=== PATIENT | male | born 1940 | race Caucasian/White ===

== ENCOUNTER 2023-04-05 19:36 | Inpatient (IN) ==
[2023-04-05] MEDS ORDERED: SODIUM CHLORIDE 0.9% 500 ML IV ONE (20:00)
--- NOTE | 2023-04-05 20:06 | Emergency Department Note ---
ED Visit Note The patient went to the OR for a GI procedure. He had presented with an esophageal food bolus. Before the endoscopy was actually initiated, the patient was feeling improved and was found to be able to tolerate oral secretions and drink water. The bolus had passed. The patient was having persistent difficulty with his breathing. I was called by anesthesia. The patient was brought back to the ER as they did not feel comfortable with discharge given his work of breathing. The patient was placed on BiPAP when he arrived back in the ED, he was given IV Solu-Medrol, 60 mg, he was given a 500 cc saline bolus, he received a DuoNeb while he was on the BiPAP. He was given IV cefepime as empiric antibiotic coverage. Patient will require a hospital stay. He very well may have aspirated during the time he was suffering from the food bolus, he appears to be suffering from a COPD exacerbation presently. I spoke with case management, I spoke with the patient, the on-call hospitalist consult. Please see my initial note which will serve as the primary ED note for this visit. .
[2023-04-05] MEDS ORDERED: ALBUT/IPRATROP 3MG/0.5MG NEB 3 ML VIAL NEB STA (20:28)
--- NOTE | 2023-04-05 21:24 | History & Physical Report ---
Date of Service April 05, 2023 Assessment & Plan (1) Food impaction of esophagus: (2) HTN (hypertension): (3) Dyslipidemia: (4) CAD (coronary artery disease): (5) Aspiration pneumonia: (6) Acute respiratory failure with hypoxia: (7) COPD (chronic obstructive pulmonary disease): (8) Lower extremity edema: Plan Food impaction of esophagus- Patient presented to the emergency department 4 and half hours after getting his food stuck in his esophagus, after having eaten eggs and toast. He had been taken to the OR for possible removal, however, while in the OR he developed acute shortness of breath, but did find it possible to swallow without regurgitation. He has been presumed by GI that the bolus has passed. N.p.o. overnight Pantoprazole 40 mg IV daily Acute respiratory failure with hypoxia/aspiration pneumonia- Received a DuoNeb, Solu-Medrol 60 mg IV and cefepime 2 g IV from the ED Solu-Medrol 40 mg IV every 8 hours Cefepime 2 g IV every 12 hours Duonebs every 4 hours while awake and every 2 hours when necessary. Continue BiPAP for now, titrate downward to nasal cannula/mask when possible for target pulse ox of 94% CAD/hypertension/lower extremity edema- Hold amlodipine, furosemide, metoprolol succinate and spironolactone Of note, there was a problem with the patient's chart when he went from the ED to the OR and then back again, with the first chart being temporarily unavailable. And needs to be verified with the ongoing service that both account numbers have been merged into the appropriate chart going forward History of Present Illness Chief Complaint: The patient presented to the emergency department with complaint of a feeling of food being caught in his esophagus about 4-1/2 hours prior to coming to the ED, after eating some eggs and toast. While in ED, they tried to give him some sips of water, and he spit it back up. He was taken to the OR for removal of a potential food bolus, however, while there he became more acutely short of breath, and was sent back to the emergency department for assessment. In the emergency department he was placed on BiPAP, and given Solu-Medrol 60 mg IV and cefepime 2 g IV, and then referred for evaluation for admission. Primary Care Provider: Arun Alexandre The patient is a 82-year-old male with a past medical history including COPD, hypertension, hyperlipidemia, CAD, vitamin D deficiency, GERD and lower extremity edema. He presented to the emergency department as noted above, about 4 and half hours after eating eggs and toast and getting the feeling that there was something stuck in his esophagus. At the time of my assessment, he was wearing BiPAP, and having accessory muscle movement, but was stable and able to answer questions. Allergies Allergy/AdvReac Type Severity Reaction Status Date / Time pollen extracts Allergy Mild Sneezing Verified 04/05/23 19:59 Home Medications Medication Instructions Recorded Confirmed Type atorvastatin 10 mg tablet 10 mg PO QAM 04/07/19 04/05/23 History fluticasone 250 mcg-salmeterol 50 1 inh inhalation BID 04/07/19 04/05/23 History mcg/dose blistr powdr for inhalation (Advair Diskus) furosemide 20 mg tablet 20 mg PO [id number] 04/07/19 04/05/23 History tiotropium bromide 2.5 1 puff inhalation BID 04/07/19 04/05/23 History mcg/actuation mist for inhalation (Spiriva Respimat) montelukast 10 mg tablet 10 mg PO QAM 05/10/20 04/05/23 History spironolactone 25 mg tablet 12.5 mg PO DAILY 05/10/20 04/05/23 History (Aldactone) amlodipine 2.5 mg tablet 2.5 mg PO HS 04/05/23 04/05/23 History cholecalciferol (vitamin D3) 25 25 mcg PO DAILY 04/05/23 04/05/23 History mcg (1,000 unit) capsule (Vitamin D3) metoprolol succinate 50 mg 75 mg PO QAM 04/05/23 04/05/23 History tablet,extended release 24 hr [id number]-[id number] tablet 1 tab PO DAILY 04/05/23 04/05/23 History omeprazole 20 mg capsule,delayed 20 mg PO DAILY PRN 04/05/23 04/05/23 History release HEARTBURN/INDIGESTION vit C 250 mg-vit E 90 mg-zinc 40 2 tab PO QAM 04/05/23 04/05/23 History mg-copper 1 [id number] capsule (PreserVision AREDS-2) Past Med/Surg History Medical History (Updated 04/05/23 @ 22:03 by Marvin Martinez MD) CAD (coronary artery disease) COPD (chronic obstructive pulmonary disease) Dyslipidemia Emphysema of lung Food impaction of esophagus HTN (hypertension) Lower extremity edema Family History Other Family history non-contributory Social History Smoking Status: Former smoker Hx Alcohol Use: No Hx Substance Use: No Preferred Language: [place] Suction Operator Required: No Beliefs That Will Affect Care: None marital status: Current Living Situation: Alone current occupational status: retired Feels Safe at Home: Yes Assistive Devices: Oxygen - Continuous Review of Systems Review of Systems: The patient denies palpitations, lower extremity swelling, fevers, chills, sweats, diarrhea , constipation, abdominal pain, pelvic pain, blood in urine or stool, dysuria, urinary frequency or urgency, lightheadedness, dizziness, headache, memory loss, loss of consciousness, rash, abnormal bruising or bleeding, imbalance, focal or generalized weakness, numbness or tingling in arms or legs, generalized arthralgias or myalgias, back or neck pain, or night sweats. The review of systems is otherwise negative other than for that already noted above, and at least 10 systems have been reviewed. Physical Exam Physical Exam: The patient is awake, alert and oriented 3, well developed and well nourished, wearing BiPAP, sitting upright in bed and in mild distress. HEENT--PERRL, EOMI, mucous membranes and oropharynx dry. Neck--supple. No JVD. No bruits. Thyroid normal, trachea midline, no adenopathy. Heart--normal S1 and S2. No murmurs, rubs or gallops. Lungs--coarse breath sounds bilaterally, wheezing right greater than left. Mild respiratory distress, with accessory muscle use. Abdomen--normal bowel sounds and soft. Nontender. Nondistended, no hernias or masses, no organomegaly. Extremities--no cyanosis or clubbing. No edema. Dermatologic--normal skin turgor, normal color, no abnormal lymph nodes, no rash. Neurologic--cranial nerves II through XII grossly intact. Rheumatologic--normal range of motion. Psychiatric--normal affect. Results & Data Results & Data Vital Signs (Past 12 Hours) Vital Signs Pulse Pulse Resp BP Pulse Ox O2 Del Method FiO2 04/05/23 19:36 105 H 30 H 95 40 04/05/23 19:54 BiPAP 04/05/23 19:51 106 H 34 H 136/104 H 97 BiPAP Laboratory Results Laboratory Results Total Bilirubin 0.6 mg/dl (0.2-1.0) 04/05/23 18:14 Direct Bilirubin TNP 04/05/23 18:14 AST TNP 04/05/23 18:14 ALT 33 U/L (7-52) 04/05/23 18:14 Alkaline Phosphatase 87 U/L (34-104) 04/05/23 18:14 Total Protein 8.3 gm/dl (6.0-8.3) 04/05/23 18:14 Albumin 4.6 gm/dl (3.4-5.0) 04/05/23 18:14 Code Status & VTE Plan Code Status Full code VTE Prophylaxis Plan VTE Prophylaxis will be ordered: Yes PG Care Time/CCT Total # of Minutes Spent Total Time Spent with Patient: Total time spent is greater than 50% in coordination of care (as documented) at patient's floor/unit and/or counseling patient: Coding Level of Care Code 92875 INT INP/OBS CARE 3/75MIN Diagnoses Food impaction of esophagus T18.128A HTN (hypertension) I10 Dyslipidemia E78.5 CAD (coronary artery disease) I25.10 Aspiration pneumonia J69.0 Acute respiratory failure with hypoxia J96.01 COPD (chronic obstructive pulmonary disease) J44.9 Lower extremity edema R60.0
[2023-04-05 21:34] LABS: Alanine Aminotransferase 33 U/L (7-52); Albumin Level 4.6 gm/dl (3.4-5.0); Alkaline Phosphatase 87 U/L (34-104); Bilirubin,Total 0.6 mg/dl (0.2-1.0); Total Protein 8.3 gm/dl (6.0-8.3)
[2023-04-05 22:29] LABS: Adenovirus PCR Not Detected (NotDetected); Bordetella parapertussis PCR Not Detected (NotDetected); Bordetella pertussis PCR Not Detected (NotDetected); Chlamydia pneumoniae PCR Not Detected (NotDetected); Coronavirus 229E PCR Not Detected (NotDetected); Coronavirus CoV-2 (COVID19)PCR Not Detected (NotDetected); Coronavirus HKU1 PCR Not Detected (NotDetected); Coronavirus NL63 PCR Not Detected (NotDetected); Coronavirus OC43PCR Not Detected (NotDetected); Human Metapneumovirus PCR Not Detected (NotDetected); Influenza A PCR Not Detected (NotDetected); Influenza B PCR Not Detected (NotDetected); Mycoplasma pneumoniae PCR Not Detected (NotDetected); Parainfluenza Virus 1 PCR Not Detected (NotDetected); Parainfluenza Virus 2 PCR Not Detected (NotDetected); Parainfluenza Virus 3 PCR Not Detected (NotDetected); Parainfluenza Virus 4 PCR Not Detected (NotDetected); Respiratory Syncytial VirusPCR Not Detected (NotDetected); Rhinovirus/Enterovirus PCR Not Detected (NotDetected)
[2023-04-05 23:26] LABS: Bilirubin Direct 0.1 mg/dl (0-0.2)
[2023-04-05] MEDS ORDERED: ONDANSETRON INJ 2 MG/ML 2 ML VIAL IV PRN (23:34)
[2023-04-05] MEDS ORDERED: ACETAMINOPHEN 1000 MG/100 ML IV IV PRN (23:34)
[2023-04-05] MEDS ORDERED: SODIUM CHLORIDE 0.9% 1,000 ML IV SCH (23:34)
[2023-04-05] MEDS ORDERED: ALBUT/IPRATROP 3MG/0.5MG NEB 3 ML VIAL NEB PRN (23:43)
[2023-04-05] MEDS ORDERED: ACETAMINOPHEN 1,000 MG/100 ML VIAL IV PRN (23:48)
[2023-04-06] MEDS: methylPREDNISolone 40 MG in SYRINGE 0 ML IV SCH ×3 (03:25→20:33)
[2023-04-06 05:01] LABS: Basophils # (auto) 0.02 K/uL (0-0.2); Basophils % (auto) 0.2 %; Eosinophils # (auto) 0.01 K/uL (0-0.50); Eosinophils % (auto) 0.1 %; Hematocrit (blood only) 44.7 % (42.0-52.0); Hemoglobin 14.8 g/dl (14.0-18.0); Immature Granulocytes # (auto) 0.06 K/uL (0.01-0.20); Immature Granulocytes % (auto) 0.5 %; Lymphocytes # (auto) 1.58 K/uL (1.2-3.4); Lymphocytes % (auto) 12.7 %; Mean Corpuscular Hemoglobin 31.8 pg (25.0-34.0); Mean Corpuscular Hgb Conc 33.1 g/dL (32.0-36.0); Mean Corpuscular Volume 95.9 fL (80.0-100.0); Mean Platelet Volume 12.5 fL (9.4-12.4); Monocytes # (auto) 0.44 K/uL (0.11-0.59); Monocytes % (auto) 3.5 %; Neutrophils # (auto) 10.38 K/uL (1.40-6.50); Platelet Count 132 K/uL (130-400); RDW Coefficient of Variation 14.4 % (11.5-14.5); RDW Standard Deviation 50.6 fL (36.4-46.3); Red Blood Count 4.66 M/uL (4.70-6.10); White Blood Count 12.49 K/ul (4.8-10.8)
[2023-04-06 05:20] LABS: Albumin Globulin Ratio 1.3 (0.9-2); Albumin Level 3.7 gm/dl (3.4-5.0); BUN Creatinine Ratio 21.2 (10-20); Bilirubin,Total 0.5 mg/dl (0.2-1.0); Calcium 8.7 mg/dl (8.6-10.3); Creatinine Clr Calc Pharmacy 50.7 ml/min; Est GFR (African American) 66.7 ml/min; Est GFR (Non-African American) 57.5 ml/min; Globulin 2.9 gm/dl (2.5-4.0); Magnesium 2.3 mg/dl (1.7-2.4); Potassium 5.1 mmol/L (3.5-5.1); Total Protein 6.6 gm/dl (6.0-8.3)
--- NOTE | 2023-04-06 07:06 | XRay Report ---
XR chest 1V portable HISTORY: 82 years-old Male hypoxia post procedure acute hypoxia COMPARISON: Chest radiograph of same day at 6:15 PM, CT chest 04/07/2019. TECHNIQUE: AP view of the chest FINDINGS: Cardiomediastinal and hilar silhouettes are unchanged. Probable pulmonary vascular congestion. Emphys cami with chronic fibrotic changes are again noted. No pneumothorax, pleural effusion or overt pulmona ry edema. Indeterminate 3 cm nodular density left midlung. Bones appear grossly intact. IMPRESSION: 1. Suggestion of pulmonary vascular congestion. 2. Emphysema with chronic fibrotic changes. 3. 3 cm nodular density of the left midlung. Attention on follow-up recommended in order to exclude a pulmonary nodule. ACT 112: Negative or not required by law. The above report was generated using voice recognition software. It may contain grammatical, syntax o r spelling errors. Electronically signed by: Mukesh Mas M.D. 04/06/2023 7:05 AM
[2023-04-06] MEDS: ALBUT/IPRATROP 3MG/0.5MG NEB 3 ML VIAL NEB SCH ×4 (07:14→19:17)
[2023-04-06] MEDS: CEFEPIME 2,000 MG in SYRINGE 0 ML IV SCH ×2 (08:25→20:33)
[2023-04-06] MEDS: PANTOprazole 40 MG in SYRINGE 0 ML IV SCH (12:27)
--- NOTE | 2023-04-06 12:46 | XRay Report ---
SINGLE VIEW CHEST CLINICAL HISTORY: Respiratory failure. FINDINGS: 2 AP, portable, upright chest radiographs are compared to study dated 04/05/2023 and correla marlen with chest CT dated 04/07/2019. The heart is enlarged noting atherosclerotic calcification of the thoracic aorta. The pulmonary vasculature is noncongested. Emphysema and chronic interstitial thicken ing is similar to previous. Apical scarring is observed. Extensive parenchymal scarring is seen throu ghout both lungs. This is greatest at the lung bases. No airspace consolidation typical for pneumonia or large pleural effusion is identified. No pneumothorax is seen. The skeletal structures are osteop enic. There are chronic/healed right-sided rib fractures. IMPRESSION: Cardiomegaly and emphysema with no acute cardiopulmonary abnormality identified. ACT 112: Negative or not required by law. Electronically signed by: Kennedy Pulido M.D. 04/06/2023 12:44 PM
--- NOTE | 2023-04-06 12:51 | Hospitalist Progress Note ---
Date of Service April 06, 2023 Assessment & Plan (1) Food impaction of esophagus: Plan: eggs/toast leading to his event. presented to ER. urgent EGD was planned, and just prior to the procedure it appeared the impaction had resolved. by report was able to take sips of liquids and had no dysphagia/odynophagia. around the same time, however, he has worsening respiratory distress - see below. I consulted speech therapy to ensure swallow function is normal and that he is safe for diet. Cont IV PPI. (2) COPD (chronic obstructive pulmonary disease): Plan: per the ER attending and the admitting MD he was wheezy and having distress in the ER. placed on IV steroids and IV abx along with nebs for COPD exacerbation. he required CPAP overnight. his symptoms/signs are improved today. in fact he was clear on exam this am. CPAP weaned to NC O2 - titrate to keep sats 90-92%. Cont IV steroids but decrease TID to BID dosing. Repeat cxr - r/o developing aspiration pneumonia. Resume his usual chronic daily inhalers. (3) Acute and chronic respiratory failure with hypoxia: Plan: chronic resp failure 2nd to COPD acute resp failure - COPD flare vs aspiration event vs developing aspiration pneumonia cxr today cont steroids but wean cont abx for now cont bronchodilators (4) Aspiration into airway: Plan: due to his food impaction there was concern last night that perhaps he aspirated secretions repeat cxr today to r/o developing aspiration pneumonia speech eval requested (5) HTN (hypertension): Plan: holding BP meds for now BPs acceptable (6) Dyslipidemia: Plan: holding statin for now (7) CAD (coronary artery disease): Plan: no ischemic symptoms or signs of ACS ultimately resume metoprolol, aldactone, etc uncertain why he is not on aspirin daily (8) DVT prophylaxis: Plan: add SC heparin or lovenox tomorrow Plan care d/w speech therapy left message for pt's on her voicemail this evening Admission and Anticipated Discharge Date Admission Date: April 05, 2023 Subjective patient was on BIPAP/CPAP all night this am during rounds he states he feels ok denies feeling dyspneic denies cough states he is typically on 2 L NC O2 chronically at home, sometimes he will bump it to 3 prior to the esophageal impaction yesterday he denies any other episodes of dysphagia or choking states that when the impaction happened yesterday he had chest discomfort with it that sensation in the chest is resolved tele overnight wnl Review of Systems Review of Systems: gen - no fevers cv - no chest pain, no PND pulm - no cough GI - no abd pain; no nausea/emesis Physical Exam Physical Exam: gen - pleasant, NAD, CPAP mask in place neck - no JVD mouth - MMM heart - RRR, s1 s2 lungs - CTA b/l; no wheezes; no rhonchi; no rales; mild tachypnea abd - soft NT ND BS+ ext - no edema, pulses 2+ b/l psych - a/o x 3 Results & Data Results & Data Vital Signs (Past 12 Hours) Vital Signs Temp Pulse Pulse Pulse Resp BP BP 04/06/23 09:59 90 16 04/06/23 09:48 93 H 28 H 04/06/23 08:00 04/06/23 08:04 36.3 C L 88 18 108/62 04/06/23 07:14 98 H 19 04/06/23 07:14 98 H 19 04/06/23 03:27 36.5 C 86 17 145/77 H 04/06/23 02:36 80 18 Pulse Ox O2 Del Method O2 Flow Rate FiO2 04/06/23 09:59 94 CPAP 35 04/06/23 09:48 93 35 04/06/23 08:00 BiPAP 40 04/06/23 08:04 91 Nasal Cannula 3 04/06/23 07:14 94 40 04/06/23 07:14 94 BiPAP 40 04/06/23 03:27 95 BiPAP 04/06/23 02:36 96 40 Laboratory Results Laboratory Results - last 24 hr 04/05/23 04/05/23 04/05/23 18:14 21:16 21:39 WBC RBC Hgb Hct MCV MCH MCHC RDW Std Deviation RDW Coeff of Whitney Plt Count MPV Immature Gran % (Auto) Neut % (Auto) Lymph % (Auto) [place] % (Auto) Eos % (Auto) Baso % (Auto) Neut # (Auto) Lymph # (Auto) [place] # (Auto) Eos # (Auto) Baso # (Auto) Immature Gran # (Auto) Sodium Potassium Chloride Carbon Dioxide Anion Gap BUN Creatinine Est Cr Clr Drug Dosing Est GFR ( Amer) Est GFR (Non-Af Amer) BUN/Creatinine Ratio Glucose Calcium Magnesium Total Bilirubin 0.6 Direct Bilirubin TNP TNP AST TNP TNP ALT 33 Alkaline Phosphatase 87 Total Protein 8.3 Albumin 4.6 Globulin Albumin/Globulin Ratio Adenovirus (PCR) Not Detected B. pertussis DNA (PCR) Not Detected B.parapertussis DNA PCR Not Detected C. pneumoniae DNA (PCR) Not Detected Coronavirus OC43 (PCR) Not Detected Coronavirus HKU1 (PCR) Not Detected Coronavirus 229E (PCR) Not Detected SARS-CoV-2 (PCR) Not Detected Coronavirus NL63 (PCR) Not Detected Human Metapneumovir PCR Not Detected Influenza Type A (PCR) Not Detected Influenza Type B (PCR) Not Detected M. pneumoniae (PCR) Not Detected Parainfluenza 1 (PCR) Not Detected Parainfluenza 2 (PCR) Not Detected Parainfluenza 3 (PCR) Not Detected Parainfluenza 4 (PCR) Not Detected RSV (PCR) Not Detected Entero/Rhino (PCR) Not Detected 04/05/23 04/06/23 04/06/23 22:55 04:30 04:30 WBC 12.49 H RBC 4.66 L Hgb 14.8 Hct 44.7 MCV 95.9 MCH 31.8 MCHC 33.1 RDW Std Deviation 50.6 H RDW Coeff of Whitney 14.4 Plt Count 132 MPV 12.5 H Immature Gran % (Auto) 0.5 Neut % (Auto) 83.0 Lymph % (Auto) 12.7 [place] % (Auto) 3.5 Eos % (Auto) 0.1 Baso % (Auto) 0.2 Neut # (Auto) 10.38 H Lymph # (Auto) 1.58 [place] # (Auto) 0.44 Eos # (Auto) 0.01 Baso # (Auto) 0.02 Immature Gran # (Auto) 0.06 Sodium 138 Potassium 5.1 Chloride 109 H Carbon Dioxide 23 Anion Gap 6 BUN 25 H Creatinine 1.18 Est Cr Clr Drug Dosing 50.7 Est GFR ( Amer) 66.7 Est GFR (Non-Af Amer) 57.5 BUN/Creatinine Ratio 21.2 H Glucose 173 H Calcium 8.7 Magnesium 2.3 Total Bilirubin 0.5 Direct Bilirubin 0.1 AST 19 18 ALT 21 Alkaline Phosphatase 64 Total Protein 6.6 D Albumin 3.7 Globulin 2.9 Albumin/Globulin Ratio 1.3 Adenovirus (PCR) B. pertussis DNA (PCR) B.parapertussis DNA PCR C. pneumoniae DNA (PCR) Coronavirus OC43 (PCR) Coronavirus HKU1 (PCR) Coronavirus 229E (PCR) SARS-CoV-2 (PCR) Coronavirus NL63 (PCR) Human Metapneumovir PCR Influenza Type A (PCR) Influenza Type B (PCR) M. pneumoniae (PCR) Parainfluenza 1 (PCR) Parainfluenza 2 (PCR) Parainfluenza 3 (PCR) Parainfluenza 4 (PCR) RSV (PCR) Entero/Rhino (PCR) PG Care Time/CCT Total # of Minutes Spent Total Time Spent with Patient: Total time spent is greater than 50% in coordination of care (as documented) at patient's floor/unit and/or counseling patient: Coding Level of Care Code 91609 SUB INP/OBS CARE 2/35MIN Diagnoses Food impaction of esophagus T18.128A COPD (chronic obstructive pulmonary disease) J44.9 Acute and chronic respiratory failure with hypoxia J96.21 Aspiration into airway T17.908A HTN (hypertension) I10 Dyslipidemia E78.5 CAD (coronary artery disease) I25.10 DVT prophylaxis Z29.9
[2023-04-06] MEDS ORDERED: methylPREDNISolone 20 MG in SYRINGE 0 ML IV SCH (20:00)
--- NOTE | 2023-04-07 05:38 | Electrocardiogram Report ---
Test Reason : Blood Pressure : / mmHG Vent. Rate : 090 BPM Atrial Rate : 090 BPM P-R Int : 180 ms QRS Dur : 088 ms QT Int : 368 ms P-R-T Axes : 068 055 044 degrees QTc Int : 450 ms Normal sinus rhythm Normal ECG When compared with ECG of 05-APR-2023 18:23, (unconfirmed) Criteria for Inferior infarct are no longer Present Confirmed by Tyler Haro ([id number]) on 04/07/2023 5:38:30 AM Referred By: REFERRED SELF Confirmed By:Tyler Haro
[2023-04-07 06:43] LABS: Basophils # (auto) 0.01 K/uL (0-0.2); Basophils % (auto) 0.1 %; Hematocrit (blood only) 40.2 % (42.0-52.0); Hemoglobin 13.2 g/dl (14.0-18.0); Immature Granulocytes # (auto) 0.07 K/uL (0.01-0.20); Immature Granulocytes % (auto) 0.5 %; Lymphocytes # (auto) 1.42 K/uL (1.2-3.4); Mean Corpuscular Hemoglobin 31.4 pg (25.0-34.0); Mean Corpuscular Hgb Conc 32.8 g/dL (32.0-36.0); Mean Corpuscular Volume 95.7 fL (80.0-100.0); Mean Platelet Volume 12.3 fL (9.4-12.4); Monocytes # (auto) 0.86 K/uL (0.11-0.59); Monocytes % (auto) 6.7 %; Neutrophils # (auto) 10.54 K/uL (1.40-6.50); Neutrophils % (auto) 81.7 %; Platelet Count 137 K/uL (130-400); RDW Coefficient of Variation 14.4 % (11.5-14.5); RDW Standard Deviation 50.3 fL (36.4-46.3)
[2023-04-07] MEDS: ALBUT/IPRATROP 3MG/0.5MG NEB 3 ML VIAL NEB SCH ×4 (06:58→19:13)
[2023-04-07 07:03] LABS: BUN Creatinine Ratio 25.3 (10-20); Calcium 8.7 mg/dl (8.6-10.3); Creatinine Clr Calc Pharmacy 60.4 ml/min; Est GFR (African American) 82.4 ml/min; Est GFR (Non-African American) 71.1 ml/min; Potassium 4.8 mmol/L (3.5-5.1)
[2023-04-07] MEDS: CEFEPIME 2,000 MG in SYRINGE 0 ML IV SCH (09:10)
[2023-04-07] MEDS: methylPREDNISolone 40 MG in SYRINGE 0 ML IV SCH ×2 (09:10→19:32)
[2023-04-07] MEDS: FLUTICASONE/VILANTEROL 200/25MCG 14 PUFFS/INHALER INH SCH (09:45)
[2023-04-07] MEDS: UMECLIDINIUM BROMIDE 62.5MCG/BLISTER 7 PUFFS/INHALER INH SCH (09:45)
--- NOTE | 2023-04-07 10:40 | Fluoroscopy Report ---
SINGLE CONTRAST BARIUM ESOPHAGRAM CLINICAL HISTORY: Esophageal dysfunction. Dyspnea. COMPARISON STUDY: No priors.. TECHNIQUE: A single contrast barium esophagram is performed. Multiple spot images of the esophagus ar e acquired in the upright position. The patient had difficulty with the examination due to significan t dyspnea. FINDINGS: The patient swallowed barium without difficulty. There is moderate to severe esophageal dys motility. The barium pill was not attempted. There is no evidence of intrinsic or extrinsic mass les ion. No aspiration was seen. The gastroesophageal junction distended normally. No gastroesophageal r eflux could be elicited by having the patient perform the Valsalva maneuver. Fluoroscopy time: 23 seconds. Ka,r: 12.8 mGy Fluoroscopic images: 8 spot images and 2 cine loops IMPRESSION: Moderate to severe esophageal dysmotility. ACT 112: Negative or not required by law. Electronically signed by: Kennedy Pulido M.D. 04/07/2023 10:38 AM
--- NOTE | 2023-04-07 11:20 | Fluoroscopy Report ---
VIDEO SWALLOW STUDY CLINICAL HISTORY: Aspiration. COMPARISON STUDY: Barium esophagram performed on the same day, 04/07/2023. FLUOROSCOPY TIME: 1.25 minutes. Ka,r: 15.7 mGy FINDINGS: Fluoroscopic guidance is provided to the Department of Speech Pathology in performing a vid eo swallow study. The patient consumed barium-impregnated pudding, cracker with paste, and thin bariu m while the swallowing mechanism was observed in real-time. No penetration or aspiration was seen wit h any of the sample textures. Esophageal dysmotility is observed. IMPRESSION: 1. No penetration or aspiration was seen with any of the sample textures. 2. Esophageal dysmotility. 3. See dedicated speech pathology report for detailed findings and recommendations. Dictated: 04/07/2023 10:27 AM Transcribed: 04/07/2023 11:14 AM Avi [id number] [email or web address] Electronically signed by: Kennedy Pulido M.D. 04/07/2023 11:19 AM
[2023-04-07] MEDS: PANTOprazole 40 MG in SYRINGE 0 ML IV SCH (12:04)
[2023-04-07] MEDS ORDERED: PIPERACILLIN/TAZOBACTAM 4.5 GM in DEXTROSE 5% 100 ML IV ONE (17:30)
--- NOTE | 2023-04-07 17:36 | Electrocardiogram Report ---
Test Reason : Blood Pressure : / mmHG Vent. Rate : 090 BPM Atrial Rate : 090 BPM P-R Int : 188 ms QRS Dur : 088 ms QT Int : 360 ms P-R-T Axes : 065 046 043 degrees QTc Int : 440 ms Normal sinus rhythm Normal ECG When compared with ECG of 06-APR-2023 05:43, No significant change was found Confirmed by Tyler Haro ([id number]) on 04/07/2023 5:36:31 PM Referred By: REFERRED SELF Confirmed By:Tyler Haro
--- NOTE | 2023-04-07 19:11 | Hospitalist Progress Note ---
Date of Service April 07, 2023 Assessment & Plan (1) Food impaction of esophagus: Plan: eggs/toast leading to his event. presented to ER. urgent EGD was planned, and just prior to the procedure it appeared the impaction had resolved. by report was able to take sips of liquids and had no dysphagia/odynophagia. around the same time, however, he has worsening respiratory distress - see below. Patient had a barium swallow done that proved that he has esophageal dysmotility Cont IV PPI. (2) COPD (chronic obstructive pulmonary disease): Plan: per the ER attending and the admitting MD he was wheezy and having distress in the ER. placed on IV steroids and IV abx along with nebs for COPD exacerbation. he required CPAP overnight. his symptoms/signs are improved today. in fact he was clear on exam this am. CPAP weaned to NC O2 - titrate to keep sats 90-92%. Cont IV steroids but decrease TID to BID dosing. Repeat cxr - r/o developing aspiration pneumonia. Resume his usual chronic daily inhalers. (3) Acute and chronic respiratory failure with hypoxia: Plan: chronic resp failure 2nd to COPD acute resp failure - COPD flare vs aspiration event vs developing aspiration pneumonia cxr today cont steroids but wean Switch from IV cefepime to IV Zosyn cont bronchodilators (4) Aspiration into airway: Plan: due to his food impaction there was concern last night that perhaps he aspirated secretions X-rays negative for pneumonia However since the patient is requiring high oxygen, will start Zosyn and discontinue cefepime. speech eval requested (5) HTN (hypertension): Plan: holding BP meds for now BPs acceptable (6) Dyslipidemia: Plan: holding statin for now (7) CAD (coronary artery disease): Plan: no ischemic symptoms or signs of ACS ultimately resume metoprolol, aldactone, etc uncertain why he is not on aspirin daily (8) DVT prophylaxis: Plan: On subcu Lovenox Plan care d/w speech therapy Admission and Anticipated Discharge Date Admission Date: April 05, 2023 Subjective Patient asking about when he can go home. However he is now on 5 L of oxygen but quickly desats requiring 10 L of oxygen with minimal exertion like standing. Review of Systems Review of Systems: All systems reviewed & are unremarkable except as noted in Subjective Physical Exam Physical Exam: General: Awake, conversant Heart: S1, S2/regular rate and rhythm, no murmur rubs or gallops Lungs: Diminished breath sounds bilaterally. Normal effort Abdomen: Soft/nontender/nondistended. No hepatosplenomegaly Extremities: No clubbing/cyanosis. No edema Behavior: Appropriate, cooperative Results & Data Results & Data Vital Signs (Past 12 Hours) Vital Signs Temp Pulse Resp BP Pulse Ox O2 Del Method O2 Flow Rate 04/07/23 16:06 36.5 C 102 H 19 113/60 91 Nasal Cannula 6 04/07/23 14:14 87 18 93 Nasal Cannula 5 04/07/23 10:58 36.4 C L 96 H 19 113/69 98 Nasal Cannula 6 04/07/23 11:00 86 17 94 Nasal Cannula 4 04/07/23 08:00 High Flow Nasal Cannula 6 04/07/23 07:43 36.4 C L 84 18 105/61 98 Nasal Cannula 4 Laboratory Results Abnormal lab results 04/07/23 04/07/23 Range/Units 05:54 05:54 WBC 12.90 H (4.8-10.8) K/ul RBC 4.20 L (4.70-6.10) M/uL Hgb 13.2 L (14.0-18.0) g/dl Hct 40.2 L (42.0-52.0) % RDW Std Deviation 50.3 H (36.4-46.3) fL Neut # (Auto) 10.54 H (1.40-6.50) K/uL [place] # (Auto) 0.86 H (0.11-0.59) K/uL BUN 25 H (6-23) mg/dl BUN/Creatinine Ratio 25.3 H (10-20) Glucose 159 H (70-99(Fasting)) mg/dl PG Care Time/CCT Total # of Minutes Spent Total Time Spent with Patient: Total time spent is greater than 50% in coordination of care (as documented) at patient's floor/unit and/or counseling patient: Coding Level of Care Code 41222 SUB INP/OBS CARE 2/35MIN Diagnoses Food impaction of esophagus T18.128A COPD (chronic obstructive pulmonary disease) J44.9 Acute and chronic respiratory failure with hypoxia J96.21 Aspiration into airway T17.908A HTN (hypertension) I10 Dyslipidemia E78.5 CAD (coronary artery disease) I25.10 DVT prophylaxis Z29.9 Time Spent (min) 35
[2023-04-07] MEDS: ENOXAPARIN INJ 40 MG/0.4 ML SYR SQ SCH (20:02)
[2023-04-08] MEDS: PIPERACILLIN/TAZOBACTAM 4.5 GM in DEXTROSE 5% 100 ML IV SCH ×3 (00:18→17:22)
[2023-04-08 06:29] LABS: Basophils # (auto) 0.01 K/uL (0-0.2); Basophils % (auto) 0.1 %; Hematocrit (blood only) 41.1 % (42.0-52.0); Hemoglobin 13.6 g/dl (14.0-18.0); Immature Granulocytes # (auto) 0.07 K/uL (0.01-0.20); Immature Granulocytes % (auto) 0.7 %; Lymphocytes # (auto) 1.05 K/uL (1.2-3.4); Mean Corpuscular Hemoglobin 31.1 pg (25.0-34.0); Mean Corpuscular Hgb Conc 33.1 g/dL (32.0-36.0); Mean Corpuscular Volume 93.8 fL (80.0-100.0); Mean Platelet Volume 12.4 fL (9.4-12.4); Monocytes # (auto) 0.74 K/uL (0.11-0.59); Monocytes % (auto) 7.1 %; Neutrophils # (auto) 8.62 K/uL (1.40-6.50); Neutrophils % (auto) 82.1 %; Platelet Count 141 K/uL (130-400); RDW Coefficient of Variation 13.7 % (11.5-14.5); RDW Standard Deviation 47.7 fL (36.4-46.3); Red Blood Count 4.38 M/uL (4.70-6.10); White Blood Count 10.49 K/ul (4.8-10.8)
[2023-04-08] MEDS: ALBUT/IPRATROP 3MG/0.5MG NEB 3 ML VIAL NEB SCH ×4 (07:44→19:52)
[2023-04-08] MEDS: methylPREDNISolone 40 MG in SYRINGE 0 ML IV SCH ×2 (09:01→21:37)
[2023-04-08] MEDS: FLUTICASONE/VILANTEROL 200/25MCG 14 PUFFS/INHALER INH SCH (09:02)
[2023-04-08] MEDS: UMECLIDINIUM BROMIDE 62.5MCG/BLISTER 7 PUFFS/INHALER INH SCH (09:02)
[2023-04-08] MEDS: ENOXAPARIN INJ 40 MG/0.4 ML SYR SQ SCH (09:03)
[2023-04-08] MEDS: PANTOprazole 40 MG in SYRINGE 0 ML IV SCH (12:33)
--- NOTE | 2023-04-08 15:47 | Pulmonary Consultation ---
Date of Consultation April 08, 2023 Assessment & Plan (1) Acute and chronic respiratory failure with hypoxia: (2) COPD (chronic obstructive pulmonary disease): (3) Pulmonary hypertension: (4) Emphysema of lung: Plan PFT 05/29/2020 personally reviewed: Moderate obstructive lung dysfunction, insignificant bronchodilator response FVC 3.65 L 92%, FEV1 1.96 L 66%, FEV1/FVC 54%, RV 104%, TLC 86%, RV/TLC 116%, DLCO 42% 2D echo 05/01/2020: EF 55-60%, grade 1 diastolic dysfunction, RV normal in size and function, PASP 50 mmHg Chest x-ray 04/06/2023 personally reviewed: Portable film, hyperinflated, with flattened diaphragm, patchy opacities appreciated bilateral lower lobes -- Acute on chronic hypoxic respiratory failure On 2 L oxygen at home No wheezing appreciated on physical exam Respiratory bio fire negative for everything -- COPD with emphysema On Advair and Spiriva at home -- Pulmonary hypertension Combination of type II and type III 2D echo to be done Plan: Follow-up ABG BNP Procalcitonin CTA chest ordered Case was discussed with RN at bedside Continue with Solu-Medrol, Breo and Incruse. Continue with antibiotic for the time being Please note the above document was generated using voice recognition software. It may contain grammatical, syntax or spelling errors.Any formal questions or concerns about the content, text or information contained within the body of this dictation should be directly addressed to the provider for clarification. History of Present Illness Attending Physician: Booker Cramer MD History of Present Illness 82-year-old male was admitted to the hospital because of food impaction in the esophagus Past medical history: Hypertension, dyslipidemia, COPD Pulmonary consulted for increasing oxygen requirement At the time of examination patient was not in any respiratory distress He was saturating 98% on 5 L nasal cannula. Denies any chest pain, no headache, no nausea, no vomiting He stated that when he is sitting like this is not that short of breath but on minimal exertion he does get short of breath. Denies any chest tigh tness. Occasional cough with clear phlegm. Denies any chest congestion. No nausea or vomiting No headache, no blurry vision Social history: [id number] smoking history, quit a long time ago Denies any history of lung cancer in the family Allergies Allergy/AdvReac Type Severity Reaction Status Date / Time pollen extracts Allergy Mild Sneezing Verified 04/05/23 19:59 Home Medications Medication Instructions Recorded Confirmed Type atorvastatin 10 mg tablet 10 mg PO QAM 04/07/19 04/05/23 History fluticasone 250 mcg-salmeterol 50 1 inh inhalation BID 04/07/19 04/05/23 History mcg/dose blistr powdr for inhalation (Advair Diskus) furosemide 20 mg tablet 20 mg PO [id number] 04/07/19 04/05/23 History tiotropium bromide 2.5 1 puff inhalation BID 04/07/19 04/05/23 History mcg/actuation mist for inhalation (Spiriva Respimat) montelukast 10 mg tablet 10 mg PO QAM 05/10/20 04/05/23 History spironolactone 25 mg tablet 12.5 mg PO DAILY 05/10/20 04/05/23 History (Aldactone) amlodipine 2.5 mg tablet 2.5 mg PO HS 04/05/23 04/05/23 History cholecalciferol (vitamin D3) 25 25 mcg PO DAILY 04/05/23 04/05/23 History mcg (1,000 unit) capsule (Vitamin D3) metoprolol succinate 50 mg 75 mg PO QAM 04/05/23 04/05/23 History tablet,extended release 24 hr [id number]-[id number] tablet 1 tab PO DAILY 04/05/23 04/05/23 History omeprazole 20 mg capsule,delayed 20 mg PO DAILY PRN 04/05/23 04/05/23 History release HEARTBURN/INDIGESTION vit C 250 mg-vit E 90 mg-zinc 40 2 tab PO QAM 04/05/23 04/05/23 History mg-copper 1 [id number]-jpvltv capsule (PreserVision AREDS-2) Patient History Medical History (Updated 04/08/23 @ 16:15 by David Cagle MD, [facility]) CAD (coronary artery disease) COPD (chronic obstructive pulmonary disease) Dyslipidemia Emphysema of lung Food impaction of esophagus HTN (hypertension) Lower extremity edema Family History Other Family history non-contributory Social History Smoking Status: Never smoker Tobacco Type: Smokeless Tobacco (Dip or Chew) Second Hand Exposure: No; Do You Dip or Chew Tobacco: Yes; Hx Alcohol Use: No Hx Substance Use: No Preferred Language: Spanish Communication Ability: Impaired Contract Officer Required: No Beliefs That Will Affect Care: None marital status: Current Living Situation: Spouse Current Living Situation Comment: at home with spouse current occupational status: retired Feels Safe at Home: Yes Assistive Devices: Oxygen - Continuous Review of Systems Review of Systems: All systems reviewed & are unremarkable except as noted in HPI & below Physical Exam Physical Exam: Constitutional: No acute distress HEENT: EOMI, PERRLA Respiratory system: Decreased air entry bilaterally, no wheeze, no rhonchi, no crackles CVS: S1-S2 positive, no murmurs or gallops, distant heart sounds Abdomen: Soft, nontender, nondistended, positive bowel sounds x4 Extremities: +2 pulses bilaterally radialis/ dorsalis pedis, no cyanosis, no edema, no clubbing Neuro: Awake alert oriented x3 Psych: Normal mood and affect G/U: No Luke Skin: no rashes, warm and dry Lymphatic: no cervical or axillary lymphadenopathy Results & Data Results & Data Vital Signs (Past 12 Hours) Vital Signs Temp Pulse Resp BP Pulse Ox O2 Del Method O2 Flow Rate 04/08/23 14:42 97 H 20 95 Nasal Cannula 5 04/08/23 11:11 36.4 C L 94 H 18 123/73 94 Nasal Cannula 4 04/08/23 11:12 81 18 94 Nasal Cannula 10 04/08/23 07:27 36.4 C L 95 H 21 135/75 98 Nasal Cannula 6 04/08/23 09:00 High Flow Nasal Cannula 5 04/08/23 07:45 81 18 91 Nasal Cannula 6 04/08/23 03:51 36.3 C L 95 H 20 135/69 96 Nasal Cannula 6 Laboratory Results 04/08/23 05:28 04/07/23 05:54 PG Care Time/CCT Total # of Minutes Spent Total Time Spent with Patient: Total time spent is greater than 50% in coordination of care (as documented) at patient's floor/unit and/or counseling patient: Coding Level of Care Code 73305 INT INP/OBS CARE 3/75MIN Diagnoses Acute and chronic respiratory failure with hypoxia J96.21 COPD (chronic obstructive pulmonary disease) J44.9 Pulmonary hypertension I27.20 Emphysema of lung J43.9
[2023-04-08 16:45] LABS: Base Excess ABG -1.1 mEq/L (-9-1.8); HCO3 ABG 24 mmol/L (19-24); Oxygen Saturation ABG 96.2 % (90-95); PCO2 ABG 38 mmHg (35-46); PO2 ABG 76 mmHg (80-95)
[2023-04-08 16:55] LABS: Allen Test Pos (Pos)
--- NOTE | 2023-04-08 17:10 | Hospitalist Progress Note ---
Date of Service April 08, 2023 Assessment & Plan (1) Food impaction of esophagus: Plan: eggs/toast leading to his event. presented to ER. urgent EGD was planned, and just prior to the procedure it appeared the impaction had resolved. by report was able to take sips of liquids and had no dysphagia/odynophagia. around the same time, however, he has worsening respiratory distress - see below. Patient had a barium swallow done that proved that he has esophageal dysmotility Cont IV PPI. (2) COPD (chronic obstructive pulmonary disease): Plan: per the ER attending and the admitting MD he was wheezy and having distress in the ER. placed on IV steroids and IV abx along with nebs for COPD exacerbation. he required CPAP overnight. Patient continues to desaturate with minimal exertion CPAP weaned to NC O2 - titrate to keep sats 90-92%. Cont IV steroids but decrease TID to BID dosing. Consulted pulmonology who ordered a CT angio of the chest, pending at this time.. Appreciate pulmonology input. Resume his usual chronic daily inhalers. (3) Acute and chronic respiratory failure with hypoxia: Plan: chronic resp failure 2nd to COPD acute resp failure - COPD flare vs aspiration event vs developing aspiration pneumonia cxr today cont steroids but wean Continue IV Zosyn cont bronchodilators (4) Aspiration into airway: Plan: due to his food impaction there was concern last night that perhaps he aspirated secretions X-rays negative for pneumonia continue Zosyn speech eval requested (5) HTN (hypertension): Plan: holding BP meds for now BPs acceptable (6) Dyslipidemia: Plan: holding statin for now (7) CAD (coronary artery disease): Plan: no ischemic symptoms or signs of ACS ultimately resume metoprolol, aldactone, etc uncertain why he is not on aspirin daily (8) DVT prophylaxis: Plan: On subcu Lovenox Plan care d/w speech therapy Admission and Anticipated Discharge Date Admission Date: April 05, 2023 Subjective patient has been desaturating significantly with minimal exertion. Family at bedside Review of Systems Review of Systems: All systems reviewed & are unremarkable except as noted in Subjective Physical Exam Physical Exam: General: Awake, conversant Heart: S1, S2/regular rate and rhythm, no murmur rubs or gallops Lungs: Diminished breath sounds bilaterally. Normal effort Abdomen: Soft/nontender/nondistended. No hepatosplenomegaly Extremities: No clubbing/cyanosis. No edema Behavior: Appropriate, cooperative Results & Data Results & Data Vital Signs (Past 12 Hours) Vital Signs Temp Pulse Resp BP Pulse Ox O2 Del Method O2 Flow Rate 04/08/23 14:42 97 H 20 95 Nasal Cannula 5 04/08/23 11:11 36.4 C L 94 H 18 123/73 94 Nasal Cannula 4 04/08/23 11:12 81 18 94 Nasal Cannula 10 04/08/23 07:27 36.4 C L 95 H 21 135/75 98 Nasal Cannula 6 04/08/23 09:00 High Flow Nasal Cannula 5 04/08/23 07:45 81 18 91 Nasal Cannula 6 PG Care Time/CCT Total # of Minutes Spent Total Time Spent with Patient: Total time spent is greater than 50% in coordination of care (as documented) at patient's floor/unit and/or counseling patient: Coding Level of Care Code 83539 SUB INP/OBS CARE 2/35MIN Diagnoses Food impaction of esophagus T18.128A COPD (chronic obstructive pulmonary disease) J44.9 Acute and chronic respiratory failure with hypoxia J96.21 Aspiration into airway T17.908A HTN (hypertension) I10 Dyslipidemia E78.5 CAD (coronary artery disease) I25.10 DVT prophylaxis Z29.9 Time Spent (min) 35
[2023-04-08] MEDS ORDERED: IOVERSOL 350 MG 125mL Prefilled Syringe IV ONE (18:01)
--- NOTE | 2023-04-08 19:40 | CT Scan Report ---
CHEST CTA for PULMONARY ARTERIES CT DOSE: 737.63 mGy.cm HISTORY: Shortness of breath. Difficulty breathing. TECHNIQUE: Multiaxial CT images of the chest were performed following the intravenous administration of contrast to evaluate the pulmonary arteries. 3D/Maximal intensity projection images were also obta ined. Sagittal and coronal reformations were also reviewed. A dose lowering technique was utilized a dhering to the principles of ALARA. COMPARISON STUDY: Chest CTA 04/07/2019. FINDINGS: Calcified plaque within the normal caliber thoracic aorta. No evidence for an aortic dissec tion. The heart is normal in size. There are trace bilateral pleural effusions. No pericardial effusi on. Moderate to severe coronary artery calcifications are again noted. No filling defects within the pulmonary arteries to suggest a pulmonary embolus. Mild focal narrowing at the takeoff of the left james bclavian artery due to the calcified plaque. Limited views of the upper abdomen demonstrate a normal liver, spleen, and adrenal glands. Mild circumferential thickening of the mid to distal esophagus. Th is remains unchanged. No mediastinal or hilar lymphadenopathy. No acute fractures identified. Emphyse ma again noted. Biapical pleural-parenchymal scarlike densities remain unchanged. Partial opacificati on of a few of the bilateral lower lobe bronchi. Otherwise, the central airways are patent. There is a new 4 mm nodule within the left upper lobe on image 161. There is a new 2.4 cm irregular density/no dule within the left upper lobe images 143 through 148. Stable 4 mm nodule at the left upper lobe on image 122. Stable 4 mm nodule within the left lower lobe on image 94. Stable 4 mm nodular density wit hin the right minor fissure on image 105. Mild chronic interstitial thickening persists. No evidence for pulmonary edema. There is new linear scarlike density within the left lung apex on image 201. IMPRESSION: 1. No evidence for a pulmonary embolus. 2. Mild esophageal wall thickening, unchanged. 3. Emphysema with biapical pleural-parenchymal scarring, unchanged. 4. Trace bilateral pleural effusions. 5. There is a new irregular 2.4 cm left upper lobe density as well as a new 4 mm nodule of the left u pper lobe. These may represent areas of scarring or a pulmonary lesion. Therefore, follow-up chest CT in 6 months is recommended to evaluate for stability. 6. Additional findings as described above. ACT 112: Positive. There are findings on this exam that require communication between the performing entity and the patient following Patient Test Result Information Act ([place] Act 112) guidelines. Electronically signed by: Sanjiv Dean M.D. 04/08/2023 7:38 PM
[2023-04-09] MEDS: ALBUT/IPRATROP 3MG/0.5MG NEB 3 ML VIAL NEB SCH ×4 (07:06→19:26)
[2023-04-09] MEDS ORDERED: FUROSEMIDE INJ 20 MG/2 ML VIAL IV ONE (08:18)
--- NOTE | 2023-04-09 08:19 | Pulmonology Progress Note ---
Date of Service April 09, 2023 Assessment & Plan (1) Acute and chronic respiratory failure with hypoxia: (2) COPD (chronic obstructive pulmonary disease): (3) Pulmonary hypertension: (4) Emphysema of lung: (5) Abnormal chest CT: (6) Aspiration pneumonia: Plan PFT 05/29/2020 personally reviewed: Moderate obstructive lung dysfunction, insignificant bronchodilator response FVC 3.65 L 92%, FEV1 1.96 L 66%, FEV1/FVC 54%, RV 104%, TLC 86%, RV/TLC 116%, DLCO 42% 2D echo 04/09/2023: EF 60-65%, grade 1 diastolic dysfunction, mild MR, mild TR, PASP [address] chest 04/08/2023 personally reviewed: Bilateral apical pleural scarring more on the left side Severe centrilobular and paraseptal emphysema Left upper lobe 2.4 cm opacity Small bilateral pleural effusion No significant mediastinal lymphadenopathy ABG 04/08/2023: 7.40/38/26 on 5 L -- Acute on chronic hypoxic respiratory failure On 2 L oxygen at home No wheezing appreciated on physical exam Respiratory bio fire negative for everything -- COPD with emphysema On Advair and Spiriva at home -- Pulmonary hypertension Combination of type II and type III 2D echo to be done --Left upper lobe opacity Could be pneumonia Repeat CT chest to be done in 3 months as an outpatient Plan: Start tapering Solu-Medrol as of tomorrow to 40 mg on a daily basis I will add azithromycin to be given for 5 days Mucinex along with flutter valve Repeat CT chest in 3 months Recommend repeat PFT as an outpatient to see if he will qualify for AVAPS machine Case was discussed with hospitalist Please note the above document was generated using voice recognition software. It may contain grammatical, syntax or spelling errors.Any formal questions or concerns about the content, text or information contained within the body of this dictation should be directly addressed to the provider for clarification. Admission and Anticipated Discharge Date Admission Date: April 05, 2023 Subjective Patient seen and examined at bedside. No acute distress, no adverse events overnight Patient was saturating 97% on 4 L, I went down to 2 L Overall he says he is feeling better. He seems he is back to his baseline almost Occasional cough with clear phlegm Does complain of difficulty bringing up the phlegm No chest pain Fair appetite Review of Systems Review of Systems: All systems reviewed & are unremarkable except as noted in Subjective Physical Exam Physical Exam: Constitutional: No acute distress HEENT: EOMI, PERRLA Respiratory system: Decreased air entry bilaterally, no wheeze, no rhonchi, no c rackles CVS: S1-S2 positive, no murmurs or gallops, distant heart sounds Abdomen: Soft, nontender, nondistended, positive bowel sounds x4 Extremities: +2 pulses bilaterally radialis/ dorsalis pedis, no cyanosis, no edema, no clubbing Neuro: Awake alert oriented x3 Psych: Normal mood and affect G/U: No Luke Skin: no rashes, warm and dry Lymphatic: no cervical or axillary lymphadenopathy Results & Data Results & Data Vital Signs (Past 12 Hours) Vital Signs Temp Pulse Pulse Resp BP Pulse Ox O2 Del Method 04/09/23 07:06 84 16 97 Nasal Cannula 04/09/23 04:07 36.4 C L 91 H 18 123/68 94 Nasal Cannula 04/08/23 23:16 36.3 C L 90 18 133/70 94 Nasal Cannula 04/08/23 23:09 87 04/08/23 21:06 High Flow Nasal Cannula O2 Flow Rate 04/09/23 07:06 5 04/09/23 04:07 5 04/08/23 23:16 5 04/08/23 23:09 04/08/23 21:06 5 Laboratory Results 04/08/23 05:28 04/07/23 05:54 PG Care Time/CCT Total # of Minutes Spent Total Time Spent with Patient: Total time spent is greater than 50% in coordination of care (as documented) at patient's floor/unit and/or counseling patient: Coding Level of Care Code 99395 SUB INP/OBS CARE 3/50MIN Diagnoses Acute and chronic respiratory failure with hypoxia J96.21 COPD (chronic obstructive pulmonary disease) J44.9 Pulmonary hypertension I27.20 Emphysema of lung J43.[address] R93.89 Aspiration pneumonia J69.0
[2023-04-09] MEDS: FLUTICASONE/VILANTEROL 200/25MCG 14 PUFFS/INHALER INH SCH (08:37)
[2023-04-09] MEDS: UMECLIDINIUM BROMIDE 62.5MCG/BLISTER 7 PUFFS/INHALER INH SCH (08:37)
[2023-04-09] MEDS: methylPREDNISolone 40 MG in SYRINGE 0 ML IV SCH ×2 (08:37→20:04)
[2023-04-09] MEDS: ENOXAPARIN INJ 40 MG/0.4 ML SYR SQ SCH (08:37)
[2023-04-09] MEDS: PIPERACILLIN/TAZOBACTAM 4.5 GM in DEXTROSE 5% 100 ML IV SCH ×4 (08:39→23:25)
[2023-04-09] MEDS: PANTOprazole 40 MG in SYRINGE 0 ML IV SCH (11:02)
[2023-04-09 12:32] LABS: BUN Creatinine Ratio 23.6 (10-20); Calcium 9.2 mg/dl (8.6-10.3); Creatinine Clr Calc Pharmacy 54.4 ml/min; Est GFR (African American) 72.6 ml/min; Est GFR (Non-African American) 62.6 ml/min; Potassium 4.5 mmol/L (3.5-5.1)
[2023-04-09] MEDS: AZITHROMYCIN 250 MG TAB PO SCH (16:01)
--- NOTE | 2023-04-09 16:34 | Hospitalist Progress Note ---
Date of Service April 09, 2023 Assessment & Plan (1) Food impaction of esophagus: Plan: eggs/toast leading to his event. presented to ER. urgent EGD was planned, and just prior to the procedure it appeared the impaction had resolved. by report was able to take sips of liquids and had no dysphagia/odynophagia. around the same time, however, he has worsening respiratory distress - see below. Patient had a barium swallow done that proved that he has esophageal dysmotility Cont IV PPI. (2) COPD (chronic obstructive pulmonary disease): Plan: per the ER attending and the admitting MD he was wheezy and having distress in the ER. placed on IV steroids and IV abx along with nebs for COPD exacerbation. he required CPAP overnight. Patient continues to desaturate with minimal exertion CPAP weaned to NC O2 - titrate to keep sats 90-92%. Cont IV steroids . Plan to decrease it to once daily dosing tomorrow. Resume his usual chronic daily inhalers. (3) Acute and chronic respiratory failure with hypoxia: Plan: chronic resp failure 2nd to COPD acute resp failure - multifactorial. COPD flare vs aspiration event vs deve loping aspiration pneumonia. Fluid overload playing a role as as well. BNP was elevated in the 500s range. Patient was given a small dose of Lasix with good diuretic and clinical response. Patient most likely has acute diastolic congestive heart failure as well continue Zosyn Added Zithromax cont bronchodilators (4) Aspiration into airway: Plan: due to his food impaction there was concern last night that perhaps he aspirated secretions X-rays negative for pneumonia continue Zosyn speech eval requested (5) HTN (hypertension): Plan: holding BP meds for now BPs acceptable (6) Dyslipidemia: Plan: holding statin for now (7) CAD (coronary artery disease): Plan: no ischemic symptoms or signs of ACS ultimately resume metoprolol, aldactone, etc uncertain why he is not on aspirin daily (8) DVT prophylaxis: Plan: On subcu Lovenox Plan care d/w speech therapy Admission and Anticipated Discharge Date Admission Date: April 05, 2023 Subjective patient was given a dose of Lasix to which he responded very well. He is now down to 2 L of oxygen. Review of Systems Review of Systems: All systems reviewed & are unremarkable except as noted in Subjective Physical Exam Physical Exam: General: Awake, conversant Heart: S1, S2/regular rate and rhythm, no murmur rubs or gallops Lungs: Diminished breath sounds bilaterally. Normal effort Abdomen: Soft/nontender/nondistended. No hepatosplenomegaly Extremities: No clubbing/cyanosis. No edema Behavior: Appropriate, cooperative Results & Data Results & Data Vital Signs (Past 12 Hours) Vital Signs Temp Pulse Resp BP Pulse Ox O2 Del Method O2 Flow Rate 04/09/23 15:26 93 H 20 91 Nasal Cannula 3 04/09/23 12:54 36.4 C L 79 20 129/77 97 Nasal Cannula 4 04/09/23 10:53 86 18 94 Nasal Cannula 4 04/09/23 08:00 High Flow Nasal Cannula 5 04/09/23 07:40 36.2 C L 92 H 20 133/72 90 Nasal Cannula 4 04/09/23 07:06 84 16 97 Nasal Cannula 5 Laboratory Results Abnormal lab results 04/08/23 04/08/23 04/09/23 Range/Units 16:27 16:27 11:34 ABG pO2 76 L (80-95) mmHg ABG O2 Saturation 96.2 H (90-95) % BUN (6-23) mg/dl BUN/Creatinine Ratio (10-20) Glucose (70-99(Fasting)) mg/dl Magnesium 2.5 H (1.7-2.4) mg/dl B-Natriuretic Peptide 592 H (0-100) pg/ml 04/09/23 Range/Units 11:34 ABG pO2 (80-95) mmHg ABG O2 Saturation (90-95) % BUN 26 H (6-23) mg/dl BUN/Creatinine Ratio 23.6 H (10-20) Glucose 152 H (70-99(Fasting)) mg/dl Magnesium (1.7-2.4) mg/dl B-Natriuretic Peptide (0-100) pg/ml PG Care Time/CCT Total # of Minutes Spent Total Time Spent with Patient: Total time spent is greater than 50% in coordination of care (as documented) at patient's floor/unit and/or counseling patient: Coding Level of Care Code 24688 SUB INP/OBS CARE 2/35MIN Diagnoses Food impaction of esophagus T18.128A COPD (chronic obstructive pulmonary disease) J44.9 Acute and chronic respiratory failure with hypoxia J96.21 Aspiration into airway T17.908A HTN (hypertension) I10 Dyslipidemia E78.5 CAD (coronary artery disease) I25.10 DVT prophylaxis Z29.9 Time Spent (min) 35
[2023-04-09] MEDS: guaiFENesin 600 MG TABCR PO SCH (20:04)
[2023-04-10 05:25] LABS: Est GFR (African American) 68.8 ml/min; Est GFR (Non-African American) 59.4 ml/min
[2023-04-10] MEDS: ALBUT/IPRATROP 3MG/0.5MG NEB 3 ML VIAL NEB SCH ×4 (07:13→19:31)
[2023-04-10] MEDS: methylPREDNISolone 40 MG in SYRINGE 0 ML IV SCH (08:51)
[2023-04-10] MEDS: guaiFENesin 600 MG TABCR PO SCH ×2 (08:51→20:39)
[2023-04-10] MEDS: AZITHROMYCIN 250 MG TAB PO SCH (08:52)
[2023-04-10] MEDS: UMECLIDINIUM BROMIDE 62.5MCG/BLISTER 7 PUFFS/INHALER INH SCH (08:52)
[2023-04-10] MEDS: FLUTICASONE/VILANTEROL 200/25MCG 14 PUFFS/INHALER INH SCH (08:52)
[2023-04-10] MEDS: ENOXAPARIN INJ 40 MG/0.4 ML SYR SQ SCH (08:52)
[2023-04-10] MEDS: PIPERACILLIN/TAZOBACTAM 4.5 GM in DEXTROSE 5% 100 ML IV SCH (08:53)
[2023-04-10] MEDS ORDERED: FUROSEMIDE INJ 20 MG/2 ML VIAL IV ONE (11:59)
--- NOTE | 2023-04-10 12:01 | Pulmonology Progress Note ---
Date of Service April 10, 2023 Assessment & Plan (1) Acute and chronic respiratory failure with hypoxia: (2) COPD (chronic obstructive pulmonary disease): (3) Pulmonary hypertension: (4) Emphysema of lung: (5) Abnormal chest CT: (6) Aspiration pneumonia: Plan PFT 05/29/2020 personally reviewed: Moderate obstructive lung dysfunction, insignificant bronchodilator response FVC 3.65 L 92%, FEV1 1.96 L 66%, FEV1/FVC 54%, RV 104%, TLC 86%, RV/TLC 116%, DLCO 42% 2D echo 04/09/2023: EF 60-65%, grade 1 diastolic dysfunction, mild MR, mild TR, PASP [address] chest 04/08/2023 personally reviewed: Bilateral apical pleural scarring more on the left side Severe centrilobular and paraseptal emphysema Left upper lobe 2.4 cm opacity Small bilateral pleural effusion No significant mediastinal lymphadenopathy ABG 04/08/2023: 7.40/38/26 on 5 L -- Acute on chronic hypoxic respiratory failure On 2 L oxygen at home No wheezing appreciated on physical exam Respiratory bio fire negative for everything BNP 592 -- COPD with emphysema On Advair and Spiriva at home -- Pulmonary hypertension 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 No further recommendation from pulmonary perspective, will sign off Please call directly with any questions Case was discussed with hospitalist Please note the above document was generated using voice recognition software. It may contain grammatical, syntax or spelling errors.Any formal questions or concerns about the content, text or information contained within the body of this dictation should be directly addressed to the provider for clarification. Admission and Anticipated Discharge Date Admission Date: April 05, 2023 Subjective Patient seen and examined at bedside. No acute distress, no adverse events overnight. He was saturating 93-94% on 4 L nasal cannula. I went down to 3 L. He stated that when he walked he did desaturate significantly. At rest he is almost back to his baseline. Coughing up clear phlegm. Denies any chest pain, no wheezing Fair appetite Review of Systems Review of Systems: All systems reviewed & are unremarkable except as noted in Subjective Physical Exam Physical Exam: Constitutional: No acute distress HEENT: EOMI, PERRLA Respiratory system: Decreased air entry bilaterally, no wheeze, no rhonchi, no crackles CVS: S1-S2 positive, no murmurs or gallops, distant heart sounds Abdomen: Soft, nontender, nondistended, positive bowel sounds x4 Extremities: +2 pulses bilaterally radialis/ dorsalis pedis, no cyanosis, no edema, no clubbing Neuro: Awake alert oriented x3 Psych: Normal mood and affect G/U: No Luke Skin: no rashes, warm and dry Lymphatic: no cervical or axillary lymphadenopathy Results & Data Results & Data Vital Signs (Past 12 Hours) Vital Signs Temp Pulse Resp BP BP Pulse Ox O2 Del Method 04/10/23 11:57 36.5 C 95 H 18 134/66 91 Nasal Cannula 04/10/23 11:03 92 H 20 96 Nasal Cannula 04/10/23 08:00 Nasal Cannula 04/10/23 08:11 36.3 C L 94 H 20 169/83 H 92 Nasal Cannula 04/10/23 07:13 91 H 22 96 Nasal Cannula 04/10/23 05:01 36.4 C L 88 16 125/66 94 Nasal Cannula O2 Flow Rate 04/10/23 11:57 4 04/10/23 11:03 4 04/10/23 08:00 4 04/10/23 08:11 4 04/10/23 07:13 4 04/10/23 05:01 4.0 Laboratory Results 04/08/23 05:28 04/10/23 04:29 PG Care Time/CCT Total # of Minutes Spent Total Time Spent with Patient: Total time spent is greater than 50% in coordination of care (as documented) at patient's floor/unit and/or counseling patient: Coding Level of Care Code 20212 SUB INP/OBS CARE 2/35MIN Diagnoses Acute and chronic respiratory failure with hypoxia J96.21 COPD (chronic obstructive pulmonary disease) J44.9 Pulmonary hypertension I27.20 Emphysema of lung J43.[address] R93.89 Aspiration pneumonia J69.0
[2023-04-10] MEDS: PANTOprazole 40 MG in SYRINGE 0 ML IV SCH (12:04)
--- NOTE | 2023-04-10 16:48 | Hospitalist Progress Note ---
Date of Service April 10, 2023 Assessment & Plan (1) Food impaction of esophagus: Plan: eggs/toast leading to his event. presented to ER. urgent EGD was planned, and just prior to the procedure it appeared the impaction had resolved. by report was able to take sips of liquids and had no dysphagia/odynophagia. around the same time, however, he has worsening respiratory distress - see below. Patient had a barium swallow done that proved that he has esophageal dysmotility Cont PPI. (2) COPD (chronic obstructive pulmonary disease): Plan: per the ER attending and the admitting MD he was wheezy and having distress in the ER. placed on IV steroids and IV abx along with nebs for COPD exacerbation. he required CPAP overnight. Patient continues to desaturate with minimal exertion CPAP weaned to NC O2 - titrate to keep sats 90-92%. reduce IV steroids . plan to switch to p.o. prednisone soon Resume his usual chronic daily inhalers. (3) Acute and chronic respiratory failure with hypoxia: Plan: chronic resp failure 2nd to COPD acute resp failure - multifactorial. COPD flare vs aspiration event vs developing aspiration pneumonia. Fluid overload playing a role as as well. BNP was elevated in the 500s range. Patient was given a small dose of Lasix with good diuretic and clinical response. Patient most likely has acute diastolic congestive heart failure as well Patient was given another dose of Lasix today Switch to p.o.Augmentin and azithromycin cont bronchodilators (4) Aspiration into airway: Plan: due to his food impaction there was concern last night that perhaps he aspirated secretions X-rays negative for pneumonia continue Augmentin speech eval requested (5) HTN (hypertension): Plan: holding BP meds for now BPs acceptable (6) Dyslipidemia: Plan: holding statin for now (7) CAD (coronary artery disease): Plan: no ischemic symptoms or signs of ACS ultimately resume metoprolol, aldactone, etc uncertain why he is not on aspirin daily (8) DVT prophylaxis: Plan: On subcu Lovenox Plan likely discharge to rehab early next week Admission and Anticipated Discharge Date Admission Date: April 05, 2023 Subjective patient feels better today. However he is still desaturating with moderate exertion. Review of Systems Review of Systems: All systems reviewed & are unremarkable except as noted in Subjective Physical Exam Physical Exam: General: Awake, conversant Heart: S1, S2/regular rate and rhythm, no murmur rubs or gallops Lungs: Diminished breath sounds bilaterally. Normal effort Abdomen: Soft/nontender/nondistended. No hepatosplenomegaly Extremities: No clubbing/cyanosis. No edema Behavior: Appropriate, cooperative Results & Data Results & Data Vital Signs (Past 12 Hours) Vital Signs Temp Pulse Resp BP BP Pulse Ox Pulse Ox 04/10/23 15:44 36.6 C 67 21 132/67 97 04/10/23 15:11 101 H 15 89 L 04/10/23 14:21 89 L 04/10/23 11:57 36.5 C 95 H 18 134/66 91 04/10/23 11:03 92 H 20 96 04/10/23 08:00 04/10/23 08:11 36.3 C L 94 H 20 169/83 H 92 04/10/23 07:13 91 H 22 96 04/10/23 05:01 36.4 C L 88 16 125/66 94 Pulse Ox Pulse Ox O2 Del Method O2 Flow Rate O2 Flow Rate O2 Flow Rate O2 Flow Rate 04/10/23 15:44 Nasal Cannula 3 04/10/23 15:11 Nasal Cannula 3 04/10/23 14:21 89 L 85 L 3 3 3 04/10/23 11:57 Nasal Cannula 4 04/10/23 11:03 Nasal Cannula 4 04/10/23 08:00 Nasal Cannula 4 04/10/23 08:11 Nasal Cannula 4 04/10/23 07:13 Nasal Cannula 4 04/10/23 05:01 Nasal Cannula 4.0 PG Care Time/CCT Total # of Minutes Spent Total Time Spent with Patient: Total time spent is greater than 50% in coordination of care (as documented) at patient's floor/unit and/or counseling patient: Coding Level of Care Code 52069 SUB INP/OBS CARE 2/35MIN Diagnoses Food impaction of esophagus T18.128A COPD (chronic obstructive pulmonary disease) J44.9 Acute and chronic respiratory failure with hypoxia J96.21 Aspiration into airway T17.908A HTN (hypertension) I10 Dyslipidemia E78.5 CAD (coronary artery disease) I25.10 DVT prophylaxis Z29.9
[2023-04-10] MEDS: AMOXICILLIN/CLAVULANATE 875 MG TAB PO SCH (17:45)
[2023-04-11] MEDS: ALBUT/IPRATROP 3MG/0.5MG NEB 3 ML VIAL NEB SCH ×2 (07:17→20:02)
[2023-04-11] MEDS: AMOXICILLIN/CLAVULANATE 875 MG TAB PO SCH ×2 (08:31→18:32)
[2023-04-11] MEDS: AZITHROMYCIN 250 MG TAB PO SCH (08:33)
[2023-04-11] MEDS: UMECLIDINIUM BROMIDE 62.5MCG/BLISTER 7 PUFFS/INHALER INH SCH (08:33)
[2023-04-11] MEDS: ENOXAPARIN INJ 40 MG/0.4 ML SYR SQ SCH (08:33)
[2023-04-11] MEDS: guaiFENesin 600 MG TABCR PO SCH ×2 (08:34→20:45)
[2023-04-11] MEDS: FLUTICASONE/VILANTEROL 200/25MCG 14 PUFFS/INHALER INH SCH (08:34)
[2023-04-11] MEDS ORDERED: methylPREDNISolone 40 MG in SYRINGE 0 ML IV SCH (09:00)
[2023-04-11] MEDS: predniSONE 20 MG TAB PO SCH (09:22)
[2023-04-11] MEDS ORDERED: METOPROLOL TARTRATE 1 MG/ML VIAL IV STA (10:20)
[2023-04-11] MEDS: PANTOprazole 40 MG in SYRINGE 0 ML IV SCH (12:11)
--- NOTE | 2023-04-11 12:12 | Hospitalist Progress Note ---
Date of Service April 11, 2023 Assessment & Plan (1) Food impaction of esophagus: Plan: eggs/toast leading to his event. presented to ER. urgent EGD was planned, and just prior to the procedure it appeared the impaction had resolved. by report was able to take sips of liquids and had no dysphagia/odynophagia. around the same time, however, he has worsening respiratory distress - see below. Patient had a barium swallow done that proved that he has esophageal dysmotility Cont PPI. (2) COPD (chronic obstructive pulmonary disease): Plan: per the ER attending and the admitting MD he was wheezy and having distress in the ER. placed on IV steroids and IV abx along with nebs for COPD exacerbation. Patient continues to desaturate with minimal exertion CPAP weaned to NC O2 - titrate to keep sats 90-92%. Improved clinically switch to p.o. prednisone tomorrow. Resume his usual chronic daily inhalers. (3) Acute and chronic respiratory failure with hypoxia: Plan: chronic resp failure 2nd to COPD acute resp failure - multifactorial. COPD flare vs aspiration event vs developing aspiration pneumonia. Fluid overload playing a role as as well. BNP was elevated in the 500s range. Patient was given a small dose of Lasix with good diuretic and clinical response. Patient most likely has acute diastolic congestive heart failure as well no more Lasix today continue p.o.Augmentin and azithromycin to complete the course cont bronchodilators (4) Aspiration into airway: Plan: due to his food impaction there was concern last night that perhaps he aspirated secretions X-rays negative for pneumonia continue Augmentin to complete the course speech eval requested (5) HTN (hypertension): Plan: holding BP meds for now BPs acceptable (6) Dyslipidemia: Plan: holding statin for now (7) CAD (coronary artery disease): Plan: no ischemic symptoms or signs of ACS ultimately resume aldactone We will resume metoprolol today to rapid A-fib uncertain why he is not on aspirin daily (8) DVT prophylaxis: Plan: discontinue Lovenox. Start Eliquis, now that in A-fib (9) Atrial fibrillation with RVR: Plan: patient went into rapid A-fib today 04/11 This is a new diagnosis for him [id number] score of 4 He will be started on Eliquis He got a dose of IV metoprolol x1 We will resume his p.o. metoprolol Plan likely discharge to rehab early next week Admission and Anticipated Discharge Date Admission Date: April 05, 2023 Subjective patient feels well. Denies chest pain or shortness of breath. He is waiting for placement. after my encounter with him, The nurse informed that he went into a rapid A-fib with a heart rate in the 126 and stable blood pressure Review of Systems Review of Systems: All systems reviewed & are unremarkable except as noted in Subjective Physical Exam Physical Exam: General: Awake, conversant Heart: S1, S2/regular rate and rhythm, no murmur rubs or gallops Lungs: Diminished breath sounds bilaterally. Normal effort Abdomen: Soft/nontender/nondistended. No hepatosplenomegaly Extremities: No clubbing/cyanosis. No edema Behavior: Appropriate, cooperative Results & Data Results & Data Vital Signs (Past 12 Hours) Vital Signs Temp Pulse Pulse Resp BP BP BP 04/11/23 11:16 36.6 C 99 H 20 118/68 04/11/23 10:45 116 H 128/68 04/11/23 10:32 125 H 126/74 04/11/23 10:25 125 H 24 123/63 04/11/23 08:00 04/11/23 07:24 36.6 C 83 19 158/84 H 04/11/23 07:19 94 H 18 04/11/23 04:31 36.5 C 87 20 116/67 Pulse Ox O2 Del Method O2 Flow Rate 04/11/23 11:16 91 Nasal Cannula 3 04/11/23 10:45 04/11/23 10:32 04/11/23 10:25 90 Nasal Cannula 3 04/11/23 08:00 Nasal Cannula 3 04/11/23 07:24 95 Nasal Cannula 04/11/23 07:19 93 Nasal Cannula 3 04/11/23 04:31 91 Nasal Cannula 3.0 PG Care Time/CCT Total # of Minutes Spent Total Time Spent with Patient: Total time spent is greater than 50% in coordination of care (as documented) at patient's floor/unit and/or counseling patient: Coding Level of Care Code 92073 SUB INP/OBS CARE 2/35MIN Diagnoses Food impaction of esophagus T18.128A COPD (chronic obstructive pulmonary disease) J44.9 Acute and chronic respiratory failure with hypoxia J96.21 Aspiration into airway T17.908A HTN (hypertension) I10 Dyslipidemia E78.5 CAD (coronary artery disease) I25.10 DVT prophylaxis Z29.9 Atrial fibrillation with RVR I48.91
[2023-04-11] MEDS: METOPROLOL TARTRATE 25 MG TAB PO SCH ×2 (12:56→20:45)
--- NOTE | 2023-04-11 17:34 | Electrocardiogram Report ---
Test Reason : Blood Pressure : / mmHG Vent. Rate : 113 BPM Atrial Rate : 234 BPM P-R Int : 000 ms QRS Dur : 088 ms QT Int : 322 ms P-R-T Axes : 000 045 042 degrees QTc Int : 441 ms Atrial fibrillation with rapid ventricular response with premature ventricular or aberrantly conducte d complexes Abnormal ECG When compared with ECG of 07-APR-2023 05:58, Atrial fibrillation has replaced Sinus rhythm Confirmed by Mayo Panda [id number] on 04/11/2023 5:34:30 PM Referred By: REFERRED SELF Confirmed By:Mickey Panda
[2023-04-11] MEDS ORDERED: POLYETHYLENE (MIRALAX) 17 GM PACK PO SCH (19:20)
[2023-04-11] MEDS: APIXABAN 5 MG TABLET PO SCH (20:45)
[2023-04-11] MEDS: POLYETHYLENE (MIRALAX) 17 GM PACK PO PRN (20:45)
[2023-04-12] MEDS: ALBUT/IPRATROP 3MG/0.5MG NEB 3 ML VIAL NEB SCH ×2 (07:09→20:20)
[2023-04-12] MEDS: APIXABAN 5 MG TABLET PO SCH ×2 (08:45→20:43)
[2023-04-12] MEDS: predniSONE 20 MG TAB PO SCH (08:45)
[2023-04-12] MEDS: METOPROLOL TARTRATE 25 MG TAB PO SCH ×2 (08:45→20:43)
[2023-04-12] MEDS: guaiFENesin 600 MG TABCR PO SCH ×2 (08:45→20:43)
[2023-04-12] MEDS: AZITHROMYCIN 250 MG TAB PO SCH (08:46)
[2023-04-12] MEDS: FLUTICASONE/VILANTEROL 200/25MCG 14 PUFFS/INHALER INH SCH (08:46)
[2023-04-12] MEDS: AMOXICILLIN/CLAVULANATE 875 MG TAB PO SCH ×2 (08:46→20:42)
[2023-04-12] MEDS: UMECLIDINIUM BROMIDE 62.5MCG/BLISTER 7 PUFFS/INHALER INH SCH (08:46)
--- NOTE | 2023-04-12 11:34 | Pulmonology Progress Note ---
Date of Service April 12, 2023 Assessment & Plan (1) Acute and chronic respiratory failure with hypoxia: (2) COPD (chronic obstructive pulmonary disease): (3) Pulmonary hypertension: (4) Emphysema of lung: (5) Abnormal chest CT: (6) Aspiration pneumonia: Plan PFT 05/29/2020 personally reviewed: Moderate obstructive lung dysfunction, insignificant bronchodilator response FVC 3.65 L 92%, FEV1 1.96 L 66%, FEV1/FVC 54%, RV 104%, TLC 86%, RV/TLC 116%, DLCO 42% 2D echo 04/09/2023: EF 60-65%, grade 1 diastolic dysfunction, mild MR, mild TR, PASP [address] chest 04/08/2023 personally reviewed: Bilateral apical pleural scarring more on the left side Severe centrilobular and paraseptal emphysema Left upper lobe 2.4 cm opacity Small bilateral pleural effusion No significant mediastinal lymphadenopathy ABG 04/08/2023: 7.40/38/26 on 5 L -- Acute on chronic hypoxic respiratory failure On 2 L oxygen at home No wheezing appreciated on physical exam Respiratory bio fire negative for everything BNP 592 -- COPD with emphysema On Advair and Spiriva at home -- Pulmonary hypertension Combination of type II and type III --Left upper lobe opacity Could be pneumonia Repeat CT chest to be done in 3 months as an outpatient Plan: Complete the course of azithromycin Complete the course of prednisone 40 mg for total of 3 days followed by 20 mg for 3 days Patient is back to his baseline oxygen requirement at rest Continue with Mucinex along with flutter valve Repeat CT chest in 3 months Recommend repeat PFT as an outpatient to see if he will qualify for AVAPS machine Patient will benefit from rehab. No further recommendation from pulmonary perspective, will sign off Please call directly with any questions Please note the above document was generated using voice recognition software. It may contain grammatical, syntax or spelling errors.Any formal questions or concerns about the content, text or information contained within the body of this dictation should be directly addressed to the provider for clarification. Admission and Anticipated Discharge Date Admission Date: April 05, 2023 Subjective Patient seen and examined at bedside. No acute distress, notable since overnight. He was saturating 93% on 3 L. I went down to 2 L. Overall he says he is feeling better. Has not been using his CPAP and they took it away. Breathing is almost back to his baseline. Occasional cough with clear phlegm. No hemoptysis Denies any nausea vomiting Review of Systems Review of Systems: All systems reviewed & are unremarkable except as noted in Subjective Physical Exam Physical Exam: Constitutional: No acute distress HEENT: EOMI, PERRLA Respiratory system: Decreased air entry bilaterally, no wheeze, no rhonchi, no crackles CVS: S1-S2 positive, no murmurs or gallops, distant heart sounds Abdomen: Soft, nontender, nondistended, positive bowel sounds x4 Extremities: +2 pulses bilaterally radialis/ dorsalis pedis, no cyanosis, no edema, no clubbing Neuro: Awake alert oriented x3 Psych: Normal mood and affect G/U: No Luke Skin: no rashes, warm and dry Lymphatic: no cervical or axillary lymphadenopathy Results & Data Results & Data Vital Signs (Past 12 Hours) Vital Signs Temp Pulse Pulse Resp BP Pulse Ox O2 Del Method 04/12/23 10:54 36.5 C 77 19 144/79 H 92 Nasal Cannula 04/12/23 08:00 Nasal Cannula 04/12/23 07:00 66 04/12/23 07:23 36.4 C L 74 20 146/69 H 91 Nasal Cannula 04/12/23 07:15 78 20 97 Nasal Cannula 04/12/23 04:14 36.9 C 74 20 136/79 93 Nasal Cannula 04/12/23 00:18 36.6 C 75 22 121/68 94 Nasal Cannula O2 Flow Rate 04/12/23 10:54 3 04/12/23 08:00 04/12/23 07:00 04/12/23 07:23 3 04/12/23 07:15 3 04/12/23 04:14 3.0 04/12/23 00:18 3.0 Laboratory Results 04/08/23 05:28 04/10/23 04:29 PG Care Time/CCT Total # of Minutes Spent Total Time Spent with Patient: Total time spent is greater than 50% in coordination of care (as documented) at patient's floor/unit and/or counseling patient: Coding Level of Care Code 39802 SUB INP/OBS CARE 2/35MIN Diagnoses Acute and chronic respiratory failure with hypoxia J96.21 COPD (chronic obstructive pulmonary disease) J44.9 Pulmonary hypertension I27.20 Emphysema of lung J43.[address] R93.89 Aspiration pneumonia J69.0
[2023-04-12] MEDS: PANTOprazole 40 MG in SYRINGE 0 ML IV SCH (12:47)
--- NOTE | 2023-04-12 16:41 | Hospitalist Progress Note ---
Date of Service April 12, 2023 Assessment & Plan (1) Food impaction of esophagus: Plan: eggs/toast leading to his event. presented to ER. urgent EGD was planned, and just prior to the procedure it appeared the impaction had resolved. by report was able to take sips of liquids and had no dysphagia/odynophagia. around the same time, however, he has worsening respiratory distress - see below. Patient had a barium swallow done that proved that he has esophageal dysmotility Cont PPI. (2) COPD (chronic obstructive pulmonary disease): Plan: per the ER attending and the admitting MD he was wheezy and having distress in the ER. placed on IV steroids and IV abx along with nebs for COPD exacerbation. Patient continues to desaturate with minimal exertion CPAP weaned to NC O2 - titrate to keep sats 90-92%. Improved clinically Plan to continue p.o. prednisone 40 mg for now and then taper down Resume his usual chronic daily inhalers. (3) Acute and chronic respiratory failure with hypoxia: Plan: chronic resp failure 2nd to COPD acute resp failure - multifactorial. COPD flare vs aspiration event vs developing aspiration pneumonia. Fluid overload playing a role as as well. BNP was elevated in the 500s range. Patient was given a small dose of Lasix with good diuretic and clinical response. Patient most likely has acute diastolic congestive heart failure as well no more Lasix today continue p.o.Augmentin and azithromycin to complete the course cont bronchodilators (4) Aspiration into airway: Plan: due to his food impaction there was concern last night that perhaps he aspirated secretions X-rays negative for pneumonia continue Augmentin to complete the course speech eval requested (5) HTN (hypertension): Plan: holding BP meds for now BPs acceptable (6) Dyslipidemia: Plan: holding statin for now (7) CAD (coronary artery disease): Plan: no ischemic symptoms or signs of ACS ultimately resume aldactone We will resume metoprolol today to rapid A-fib uncertain why he is not on aspirin daily (8) DVT prophylaxis: Plan: discontinue Lovenox. Start Eliquis, now that in A-fib (9) Atrial fibrillation with RVR: Plan: patient went into rapid A-fib today 04/11 This is a new diagnosis for him [id number] score of 4 Recent echo showed mild left atrial dilatation He was started on Eliquis He got a dose of IV metoprolol x1 back on his p.o. metoprolol Plan likely discharge to rehab early next week Admission and Anticipated Discharge Date Admission Date: April 05, 2023 Subjective patient feels better today. No chest pain or shortness of breath. No palpitations. Review of Systems Review of Systems: All systems reviewed & are unremarkable except as noted in Subjective Physical Exam Physical Exam: General: Awake, conversant Heart: S1, S2/regular rate and rhythm, no murmur rubs or gallops Lungs: Diminished breath sounds bilaterally. Normal effort Abdomen: Soft/nontender/nondistended. No hepatosplenomegaly Extremities: No clubbing/cyanosis. No edema Behavior: Appropriate, cooperative Results & Data Results & Data Vital Signs (Past 12 Hours) Vital Signs Temp Pulse Pulse Resp BP Pulse Ox O2 Del Method 04/12/23 15:21 36.6 C 74 20 129/72 91 Nasal Cannula 04/12/23 10:54 36.5 C 77 19 144/79 H 92 Nasal Cannula 04/12/23 08:00 Nasal Cannula 04/12/23 07:00 66 04/12/23 07:23 36.4 C L 74 20 146/69 H 91 Nasal Cannula 04/12/23 07:15 78 20 97 Nasal Cannula O2 Flow Rate 04/12/23 15:21 2 04/12/23 10:54 3 04/12/23 08:00 04/12/23 07:00 04/12/23 07:23 3 04/12/23 07:15 3 PG Care Time/CCT Total # of Minutes Spent Total Time Spent with Patient: Total time spent is greater than 50% in coordination of care (as documented) at patient's floor/unit and/or counseling patient: Coding Level of Care Code 96780 SUB INP/OBS CARE 2/35MIN Diagnoses Food impaction of esophagus T18.128A COPD (chronic obstructive pulmonary disease) J44.9 Acute and chronic respiratory failure with hypoxia J96.21 Aspiration into airway T17.908A HTN (hypertension) I10 Dyslipidemia E78.5 CAD (coronary artery disease) I25.10 DVT prophylaxis Z29.9 Atrial fibrillation with RVR I48.91
[2023-04-12] MEDS: POLYETHYLENE (MIRALAX) 17 GM PACK PO PRN (20:44)
[2023-04-13 06:34] LABS: Est GFR (African American) 76.8 ml/min; Est GFR (Non-African American) 66.3 ml/min
[2023-04-13] MEDS: ALBUT/IPRATROP 3MG/0.5MG NEB 3 ML VIAL NEB SCH ×2 (07:06→19:03)
[2023-04-13] MEDS: AMOXICILLIN/CLAVULANATE 875 MG TAB PO SCH ×2 (08:11→18:25)
[2023-04-13] MEDS: predniSONE 20 MG TAB PO SCH (08:44)
[2023-04-13] MEDS: FLUTICASONE/VILANTEROL 200/25MCG 14 PUFFS/INHALER INH SCH (08:44)
[2023-04-13] MEDS: guaiFENesin 600 MG TABCR PO SCH ×2 (08:44→20:14)
[2023-04-13] MEDS: AZITHROMYCIN 250 MG TAB PO SCH (08:44)
[2023-04-13] MEDS: METOPROLOL TARTRATE 25 MG TAB PO SCH ×2 (08:44→20:14)
[2023-04-13] MEDS: APIXABAN 5 MG TABLET PO SCH ×2 (08:44→20:13)
[2023-04-13] MEDS: UMECLIDINIUM BROMIDE 62.5MCG/BLISTER 7 PUFFS/INHALER INH SCH (09:51)
[2023-04-13] MEDS: PANTOprazole 40 MG in SYRINGE 0 ML IV SCH (11:44)
--- NOTE | 2023-04-13 14:20 | Hospitalist Progress Note ---
Date of Service April 13, 2023 Assessment & Plan (1) Food impaction of esophagus: Plan: eggs/toast leading to his event. presented to ER. urgent EGD was planned, and just prior to the procedure it appeared the impaction had resolved. by report was able to take sips of liquids and had no dysphagia/odynophagia. around the same time, however, he has worsening respiratory distress - see below. Patient had a barium swallow done that proved that he has esophageal dysmotility Cont PPI. (2) COPD (chronic obstructive pulmonary disease): Plan: per the ER attending and the admitting MD he was wheezy and having distress in the ER. placed on IV steroids and IV abx along with nebs for COPD exacerbation. Patient continues to desaturate with minimal exertion CPAP weaned to NC O2 - titrate to keep sats 90-92%. Improved clinically Was on 40 mg of prednisone for 3 days. Taper down to 20 mg starting tomorrow For 3 days. Order placed. He would like to follow-up with [facility] pulmonology Resume his usual chronic daily inhalers. (3) Acute and chronic respiratory failure with hypoxia: Plan: chronic resp failure 2nd to COPD acute resp failure - multifactorial. COPD flare vs aspiration event vs developing aspiration pneumonia. Fluid overload playing a role as as well. BNP was elevated in the 500s range. Patient was given a small dose of Lasix with good diuretic and clinical response. Patient most likely has acute diastolic congestive heart failure as well no more Lasix continue p.o.Augmentin to complete the course. Discontinue azithromycin as completed the course. cont bronchodilators (4) Aspiration into airway: Plan: due to his food impaction there was concern last night that perhaps he aspirated secretions X-rays negative for pneumonia continue Augmentin to complete the course speech eval requested (5) HTN (hypertension): Plan: holding BP meds for now BPs acceptable (6) Dyslipidemia: Plan: holding statin for now (7) CAD (coronary artery disease): Plan: no ischemic symptoms or signs of ACS ultimately resume aldactone We will resume metoprolol today to rapid A-fib uncertain why he is not on aspirin daily (8) DVT prophylaxis: Plan: discontinued Lovenox. on Eliquis, now that in A-fib (9) Atrial fibrillation with RVR: Plan: patient went into rapid A-fib 04/11 This is a new diagnosis for him [id number] score of 4 Recent echo showed mild left atrial dilatation He was started on Eliquis He got a dose of IV metoprolol x1 back on his p.o. metoprolol Plan likely discharge to rehab tomorrow, per family service caseworker Admission and Anticipated Discharge Date Admission Date: April 05, 2023 Subjective patient feels well overall. Denies chest pain or shortness of breath. Review of Systems Review of Systems: All systems reviewed & are unremarkable except as noted in Subjective Physical Exam Physical Exam: General: Awake, conversant Heart: S1, S2/regular rate and rhythm, no murmur rubs or gallops Lungs: Diminished breath sounds bilaterally. Normal effort Abdomen: Soft/nontender/nondistended. No hepatosplenomegaly Extremities: No clubbing/cyanosis. No edema Behavior: Appropriate, cooperative Results & Data Results & Data Vital Signs (Past 12 Hours) Vital Signs Temp Pulse Resp BP BP Pulse Ox O2 Del Method 04/13/23 11:38 36.6 C 65 18 110/63 95 Nasal Cannula 04/13/23 08:00 Nasal Cannula 04/13/23 07:24 36.4 C L 73 20 148/78 H 90 Nasal Cannula 04/13/23 07:07 78 17 95 Nasal Cannula 04/13/23 03:29 36.5 C 79 20 110/62 91 Nasal Cannula O2 Flow Rate 04/13/23 11:38 3 04/13/23 08:00 3 04/13/23 07:24 3 04/13/23 07:07 3 04/13/23 03:29 2 PG Care Time/CCT Total # of Minutes Spent Total Time Spent with Patient: Total time spent is greater than 50% in coordination of care (as documented) at patient's floor/unit and/or counseling patient: Coding Level of Care Code 53477 SUB INP/OBS CARE 2/35MIN Diagnoses Food impaction of esophagus T18.128A COPD (chronic obstructive pulmonary disease) J44.9 Acute and chronic respiratory failure with hypoxia J96.21 Aspiration into airway T17.908A HTN (hypertension) I10 Dyslipidemia E78.5 CAD (coronary artery disease) I25.10 DVT prophylaxis Z29.9 Atrial fibrillation with RVR I48.91
[2023-04-14] MEDS: ALBUT/IPRATROP 3MG/0.5MG NEB 3 ML VIAL NEB SCH (07:36)
[2023-04-14] MEDS ORDERED: predniSONE 20 MG TAB PO SCH (08:00)
[2023-04-14] MEDS: AMOXICILLIN/CLAVULANATE 875 MG TAB PO SCH (08:17)
[2023-04-14] MEDS: guaiFENesin 600 MG TABCR PO SCH (08:18)
[2023-04-14] MEDS: APIXABAN 5 MG TABLET PO SCH (08:18)
[2023-04-14] MEDS: METOPROLOL TARTRATE 25 MG TAB PO SCH (08:18)
[2023-04-14] MEDS: UMECLIDINIUM BROMIDE 62.5MCG/BLISTER 7 PUFFS/INHALER INH SCH (09:49)
[2023-04-14] MEDS: FLUTICASONE/VILANTEROL 200/25MCG 14 PUFFS/INHALER INH SCH (09:50)
[2023-04-14] MEDS: PANTOprazole 40 MG in SYRINGE 0 ML IV SCH (09:50)
[2023-04-14 10:51] LABS: BUN Creatinine Ratio 21.2 (10-20); Calcium 8.6 mg/dl (8.6-10.3); Creatinine Clr Calc Pharmacy 52.9 ml/min; Est GFR (African American) 70.3 ml/min; Est GFR (Non-African American) 60.6 ml/min; Potassium 4.3 mmol/L (3.5-5.1)
--- NOTE | 2023-04-14 11:19 | Discharge Summary ---
Date of Service date of admission - April 05, 2023 date of discharge - April 14, 2023 Admission HPI Per Admitting Provider The patient is a 82-year-old male with a past medical history including COPD, hypertension, hyperlipidemia, CAD, vitamin D deficiency, GERD and lower extremity edema. He presented to the emergency department as noted above, about 4 and half hours after eating eggs and toast and getting the feeling that there was something stuck in his esophagus. At the time of my assessment, he was wearing BiPAP, and having accessory muscle movement, but was stable and able to answer questions. Principal Diagnosis 1. Food bolus - resolved; spontaneously passed 2. Acute on chronic hypoxic respiratory failure - likely aspiration leading to COPD exacerbation, acute diastolic CHF, and rapid atrial fibrillation 3. Rapid atrial fibrillation - resolved, back in normal rhythm; no a.fib since 04/12/23 4. Chronic hypoxic respiratory failure on home O2 5. Left upper lobe pulmonary nodules x 2 6. Type 2 diabetes - Hba1c 7.3% Discharge Exam gen - pleasant, NAD, looks good; no respiratory distress neck - no JVD mouth - MMM heart - RRR, s1 s2 lungs - CTA b/l; no wheezes; no rhonchi; no rales abd - soft NT ND BS+ ext - no edema, pulses 2+ b/l psych - a/o x 3 Discharge Data Allergies Allergy/AdvReac Type Severity Reaction Status Date / Time pollen extracts Allergy Mild Sneezing Verified 04/05/23 19:59 Consultations [facility] Speech therapy PT, OT Procedures Performed Echocardiogram: Ordered Studies Chest X-Ray 04/05/23 20:30 XR chest 1V portable HISTORY: 82 years-old Male hypoxia post procedure acute hypoxia COMPARISON: Chest radiograph of same day at 6:15 PM, CT chest 04/07/2019. TECHNIQUE: AP view of the chest FINDINGS: Cardiomediastinal and hilar silhouettes are unchanged. Probable pulmonary vascular congestion. Emphysema with chronic fibrotic changes are again noted. No pneumothorax, pleural effusion or overt pulmonary edema. Indeterminate 3 cm nodular density left midlung. Bones appear grossly intact. IMPRESSION: 1. Suggestion of pulmonary vascular congestion. 2. Emphysema with chronic fibrotic changes. 3. 3 cm nodular density of the left midlung. Attention on follow-up recommended in order to exclude a pulmonary nodule. ACT 112: Negative or not required by law. The above report was generated using voice recognition software. It may contain grammatical, syntax or spelling errors. Electronically signed by: Mukesh Mas M.D. 04/06/2023 7:05 AM Chest X-Ray 04/06/23 11:43 SINGLE VIEW CHEST CLINICAL HISTORY: Respiratory failure. FINDINGS: 2 AP, portable, upright chest radiographs are compared to study dated 04/05/2023 and correlated with chest CT dated 04/07/2019. The heart is enlarged noting atherosclerotic calcification of the thoracic aorta. The pulmonary vasculature is noncongested. Emphysema and chronic interstitial thickening is similar to previous. Apical scarring is observed. Extensive parenchymal scarring is seen throughout both lungs. This is greatest at the lung bases. No airspace consolidation typical for pneumonia or large pleural effusion is identified. No pneumothorax is seen. The skeletal structures are osteopenic. There are chronic/healed right-sided rib fractures. IMPRESSION: Cardiomegaly and emphysema with no acute cardiopulmonary abnormality identified. ACT 112: Negative or not required by law. Electronically signed by: Kennedy Pulido M.D. 04/06/2023 12:44 PM Barium Swallow X-Ray 04/07/23 08:30 SINGLE CONTRAST BARIUM ESOPHAGRAM CLINICAL HISTORY: Esophageal dysfunction. Dyspnea. COMPARISON STUDY: No priors.. TECHNIQUE: A single contrast barium esophagram is performed. Multiple spot images of the esophagus are acquired in the upright position. The patient had difficulty with the examination due to significant dyspnea. FINDINGS: The patient swallowed barium without difficulty. There is moderate to severe esophageal dysmotility. The barium pill was not attempted. There is no evidence of intrinsic or extrinsic mass lesion. No aspiration was seen. The gastroesophageal junction distended normally. No gastroesophageal reflux could be elicited by having the patient perform the Valsalva maneuver. Fluoroscopy time: 23 seconds. Ka,r: 12.8 mGy Fluoroscopic images: 8 spot images and 2 cine loops IMPRESSION: Moderate to severe esophageal dysmotility. ACT 112: Negative or not required by law. Electronically signed by: Kennedy Pulido M.D. 04/07/2023 10:38 AM Videofluoroscopic Swallow 04/07/23 09:00 VIDEO SWALLOW STUDY CLINICAL HISTORY: Aspiration. COMPARISON STUDY: Barium esophagram performed on the same day, 04/07/2023. FLUOROSCOPY TIME: 1.25 minutes. Ka,r: 15.7 mGy FINDINGS: Fluoroscopic guidance is provided to the Department of Speech Patholog y in performing a video swallow study. The patient consumed barium-impregnated pudding, cracker with paste, and thin barium while the swallowing mechanism was observed in real-time. No penetration or aspiration was seen with any of the sample textures. Esophageal dysmotility is observed. IMPRESSION: 1. No penetration or aspiration was seen with any of the sample textures. 2. Esophageal dysmotility. 3. See dedicated speech pathology report for detailed findings and recommendations. Dictated: 04/07/2023 10:27 AM Transcribed: 04/07/2023 11:14 AM Avi [id number] [email or web address] Electronically signed by: Kennedy Pulido M.D. 04/07/2023 11:19 AM Chest CTA 04/08/23 16:11 CHEST CTA for PULMONARY ARTERIES CT DOSE: 737.63 mGy.cm HISTORY: Shortness of breath. Difficulty breathing. TECHNIQUE: Multiaxial CT images of the chest were performed following the intravenous administration of contrast to evaluate the pulmonary arteries. 3D/Maximal intensity projection images were also obtained. Sagittal and coronal reformations were also reviewed. A dose lowering technique was utilized adhering to the principles of ALARA. COMPARISON STUDY: Chest CTA 04/07/2019. FINDINGS: Calcified plaque within the normal caliber thoracic aorta. No evidence for an aortic dissection. The heart is normal in size. There are trace bilateral pleural effusions. No pericardial effusion. Moderate to severe coronary artery calcifications are again noted. No filling defects within the pulmonary arteries to suggest a pulmonary embolus. Mild focal narrowing at the takeoff of the left subclavian artery due to the calcified plaque. Limited views of the upper a bdomen demonstrate a normal liver, spleen, and adrenal glands. Mild circumferential thickening of the mid to distal esophagus. This remains unchanged. No mediastinal or hilar lymphadenopathy. No acute fractures identified. Emphysema again noted. Biapical pleural-parenchymal scarlike densities remain unchanged. Partial opacification of a few of the bilateral lower lobe bronchi. Otherwise, the central airways are patent. There is a new 4 mm nodule within the left upper lobe on image 161. There is a new 2.4 cm irregular density/nodule within the left upper lobe images 143 through 148. Stable 4 mm nodule at the left upper lobe on image 122. Stable 4 mm nodule within the left lower lobe on image 94. Stable 4 mm nodular density within the right minor fissure on image 105. Mild chronic interstitial thickening persists. No evidence for pulmonary edema. There is new linear scarlike density within the left lung apex on image 201. IMPRESSION: 1. No evidence for a pulmonary embolus. 2. Mild esophageal wall thickening, unchanged. 3. Emphysema with biapical pleural-parenchymal scarring, unchanged. 4. Trace bilateral pleural effusions. 5. There is a new irregular 2.4 cm left upper lobe density as well as a new 4 mm nodule of the left upper lobe. These may represent areas of scarring or a p ulmonary lesion. Therefore, follow-up chest CT in 6 months is recommended to evaluate for stability. 6. Additional findings as described above. ACT 112: Positive. There are findings on this exam that require communication between the performing entity and the patient following Patient Test Result Information Act ([place] Act 112) guidelines. Electronically signed by: Sanjiv Dean M.D. 04/08/2023 7:38 PM Hospital Course (1) Food impaction of esophagus: Presented to [facility] ER after consuming eggs/toast. Had esophageal impaction from such. Urgent EGD was planned, and just prior to the procedure it appeared the impaction had resolved spontaneously. By report he was able to take sips of liquids and had no dysphagia/odynophagia. EGD was thus canceled. Unfortunately, around the same time however, he developed worsening respiratory distress - see below. He ultimately was seen by speech therapy who performed video swallow evaluation. There was evidence of esophageal dysmotility but no aspiration. He was treated with a PPI during the stay. He was eating/drinking without difficulty prior to discharge. (2) COPD (chronic obstructive pulmonary disease): At time of ER presentation he had respiratory distress and evidence of COPD exacerbation. Treated with IV antibiotics and steroids. Required CPAP at the peak of the respiratory illness. CPAP was weaned to NC O2. Will complete a prednisone taper and finish a course of antibiotics. (3) Acute and chronic respiratory failure with hypoxia: chronic resp failure - 2nd to COPD acute resp failure - COPD flare vs aspiration event CT chest did NOT show a discrete pneumonia [id number] treated with antibiotics and steroids along with bronchodilators o2 ultimately weaned to 3 liters of [place] oxygen (4) Aspiration into airway: due to his food impaction there was concern on the night of admission that perhaps he aspirated secretions CT chest 04/08 did not show a discrete pneumonia, however [id number] he completed a course of antibiotics (5) HTN (hypertension): cont metoprolol succinate and lasix amlodipine & spironolactone were both discontinued (6) Dyslipidemia: cont statin (7) CAD (coronary artery disease): patient had no ischemic symptoms or signs of ACS while here uncertain why he is not on aspirin daily cont statin, metoprolol succinate, etc (8) Atrial fibrillation with RVR: On 04/11 he developed rapid atrial fibrillation. He was asymptomatic when in a.fib. He spontaneously converted back to normal rhythm on 04/12. He was started on Eliquis anticoagulation for the a.fib. He was continued on metoprolol succinate daily. (9) Abnormal chest CT: CT chest showed the following - "There is a new irregular 2.4 cm left upper lobe density as well as a new 4 mm nodule of the left upper lobe. These may represent areas of scarring or a pulmonary lesion. Therefore, follow-up chest CT in 6 months is recommended to evaluate for stability." will need pulmonary follow-up for this. (10) Pulmonary hypertension: mild-moderate on echo (11) Acute diastolic CHF (congestive heart failure): Patient developed decompensated diastolic CHF while here requiring diuresis. Volume status improved with lasix. He will continue on lasix 20mg daily. (12) Esophageal dysmotility: As seen on video swallow. PPI, aspiration precautions, etc. (13) Type 2 diabetes mellitus: Hba1c 7.3% Noted to have hyperglycemia on AM labs, etc. Recommend diet-control for now. Total Time Total Time Spent Total Time Spent (In Minutes): 45 Discharge Plan Discharge Items Patient Disposition: Transfer Custodial Fac Reason For Visit: FOOD BOLUS, ACUTE/CHRONIC RESPIRATORY FAILURE Discharge Diagnosis: 1. Food bolus - resolved; spontaneously passed 2. Acute on chronic hypoxic respiratory failure - likely aspiration leading to COPD exacerbation, acute diastolic CHF, and rapid atrial fibrillation 3. Rapid atrial fibrillation - resolved, back in normal rhythm; no a.fib since 04/12/23 4. Chronic hypoxic respiratory failure on home O2 5. Left upper lobe pulmonary nodules x 2 6. Hyperglycemia Activity: As commented below Activity Comment: per PT/OT recommendation Non-emergency contact: Primary Care Provider and Cost Accounting Analyst Call non-emergency contact if: you have any medication questions, your symptoms worsen and you have a fever Follow-up/Referrals: David Cagle MD, [facility] [Physician] - (see Dr Cagle 3-4 weeks for outpatient PFTs, recheck of lungs, etc ) Martin Lombardo MD [Physician] - (see Dr Lombardo or 1 of his partners in about 1 month; dx - new a.fib) Arun Alexandre [Primary Care Provider] - (1 week after d/c from rehab ) Diet: Heart Healthy Addtl Attending Provider Instructions: Mr Galvan was hospitalized after having developed a food bolus. Shortly after ER presentation he likely passed the esophageal food bolus spontaneously. Unfortunately it was suspected he may have aspirated gastric contents/saliva leading to COPD exacerbation. For several days he required more oxygen than his typical baseline (usually on 2-3 Liters of [place] O2 continuously). His COPD exacerbation was treated with IV steroids, neb treatments & antibiotics. CT chest did not show a discrete aspiration pneumonia despite concerns for an aspiration event. On 04/11 he developed rapid atrial fibrillation. He was asymptomatic when in a.fib. He converted back to normal rhythm on 04/12. He was started on Eliquis anticoagulation for the a.fib. [facility] saw patient in consultation for his COPD. Dr David Cagle provided dinh recommendations for his care. Dr Cagle would like to see the patient back in about a month to recheck his lungs. Mr Galvan will need a repeat CT chest in about 3 months to recheck the left upper lobe nodules. He will also need repeat PFTs during the pulmonary visit. Recommendations - 1. Recheck BMP and magnesium level in 3-4 days for stability; results to medical insurance coding specialist. Please also check a hemoglobin a1c as patient's BSGs were occasionally high. 2. Daily standing scale weights. Call medical insurance coding specialist if there is any weight gain of more than 2-3 pounds in 1-2 days. 3. NC O2 - 3 liters continuously. 4. At time of discharge from [facility] please perform a formal "2- step" ambulatory O2 test to determine the amount of NC O2 he will need with walking/ambulation. Pending Studies at Discharge: No Stand-Alone Forms: My [facility] Skilled Items Patient informed of condition?: Yes DNR: No Discharge Level of Care: Skilled Communicable Disease: No Discharge Prognosis: Stable Lines: None Urinary Catheter: No Medications and DC Order Prescriptions: New Eliquis 5 mg Tablet 5 mg PO BID Qty: 60 2RF guaifenesin [Mucinex] 600 mg Tablet Extended Release 12hr 1,200 mg PO Q12 10 Days Qty: 40 0RF polyethylene glycol 3350 [Miralax] 17 gram Powder In Packet 17 g PO DAILY Qty: 30 5RF ipratropium-albuterol 0.5 mg-3 mg(2.5 mg base)/3 mL Solution For Nebulization 3 ml NEB BID Qty: 1 2RF (DME) Oxygen Home Liters Per Minute See Rx Instructions .ROUTE .MEDSUPPLY Qty: 1 0RF Rx Instructions: 3 liters continuously. Continued fluticasone propion-salmeterol [Advair Diskus] 250-50 mcg/dose blister with device 1 inh inhalation BID Rx Instructions: Rinse mouth with water after use. atorvastatin 10 mg tablet 10 mg PO QAM Spiriva Respimat 2.5 mcg/actuation mist 1 puff inhalation BID montelukast 10 mg Tablet 10 mg PO QAM cholecalciferol (vitamin D3) [Vitamin D3] 25 mcg (1,000 unit) Capsule 25 mcg PO DAILY [id number] Tablet 1 tab PO DAILY PreserVision AREDS-2 250-90-40-1 mg Capsule 2 tab PO QAM Changed pantoprazole 40 mg tablet,delayed release (DR/EC) 40 mg PO DAILY Qty: 30 5RF furosemide 20 mg tablet 20 mg PO QAM Qty: 30 5RF metoprolol succinate 50 mg tablet extended release 24 hr 50 mg PO QAM Qty: 30 5RF Discontinued spironolactone [Aldactone] 25 mg Tablet 12.5 mg PO DAILY amlodipine 2.5 mg tablet 2.5 mg PO HS Discharge Orders: Discharge Order (Routine); Ordered 04/14/23 Ordered By: Ace Joshi/Other Patient Handouts: Apixaban Oral Tablet, AFib Preventing Stroke, AFib Admission Data Admit Date/Time: 04/05/23 21:21 Attending Provider: Ace Justin Admit Provider: Marvin Martinez Primary Care Provider: Arun Alexandre Other Providers: Marvin Martinez ; David Cagle ; Brady Mcgrath Other Interventions: Discharge Summary Assessment (RN) Last Done: 04/14/23 13:40 Coding Level of Care Code 85274 INP/OBS DISCH >30 MIN Diagnoses Food impaction of esophagus T18.128A COPD (chronic obstructive pulmonary disease) J44.9 Acute and chronic respiratory failure with hypoxia J96.21 Aspiration into airway T17.908A HTN (hypertension) I10 Dyslipidemia E78.5 CAD (coronary artery disease) I25.10 Atrial fibrillation with RVR I48.[address] R93.89 Pulmonary hypertension I27.20 Acute diastolic CHF (congestive heart failure) I50.31 Esophageal dysmotility K22.4 Type 2 diabetes mellitus E11.9
[2023-04-14 17:46] LABS: Estimated Average Glucose 163 mg/dl; Hemoglobin A1C 7.3 % (4.5-5.6)
== END 2023-04-14 14:00 | DRG 393 ==
LOC: ED 19:36 → SUATTDRO 21:21 → 4W 21:21

== ENCOUNTER 2023-10-29 11:15 | Inpatient (IN) ==
[2023-10-29] MEDS: methylPREDNISolone 125 MG/2 ML VIAL IV STA (11:39)
[2023-10-29] MEDS: ALBUT/IPRATROP 3MG/0.5MG NEB 3 ML VIAL INH STA (11:45)
--- NOTE | 2023-10-29 11:48 | Emergency Department Note ---
Impression & Plan Acute and chronic respiratory failure with hypoxia, COPD (chronic obstructive pulmonary disease), Atrial fibrillation with RVR, CHF (congestive heart failure), Elevated serum creatinine ED Provider Note Provider: Quintin Reynolds MD DATE OF SERVICE: 10/29/2023 CHIEF COMPLAINT: Shortness of breath HISTORY OF PRESENT ILLNESS: Patient is a 83-year-old gentleman past medical history of type 2 diabetes, CHF, atrial fibrillation with RVR, and COPD maintained on anticoagulation presenting here with son. Saw [facility] pulmonology yesterday. Is on chronic low-dose prednisone. States compliance with home medications. Worsening breathing overnight. Extensive history of hospitalization in [place] several times earlier this year for pneumonia and COVID-19. Recently released from rehab facility in [place]. Patient denies chest pain. Some mild swelling of the legs. Little bit of dizziness but no syncope or falls. Significant shortness of breath noted walking even 10 feet at home with his 5 L of chronic oxygen his sats would drop into the 70s. Does not use a CPAP at night. Denies fever. PAST MEDICAL HISTORY: As noted above MEDICATIONS: Reviewed home medications SOCIAL HISTORY: Former smoker PHYSICAL EXAM: GENERAL: alert and oriented on stretcher increased work of breathing Head: normocephalic and atraumatic EYES: No injection, discharge or icterus. NECK: Trachea midline. ENT: Mucous membranes pink and moist. LUNGS: Airway patent. Tachypneic with increased work of breathing breath sounds expiratory wheeze and diminished HEART: Regular rate and rhythm. No chest wall tenderness ABDOMEN: Soft and non-tender, without guarding or rebound. SKIN: Acyanotic, warm, dry, without rashes EXTREMITIES: Without tenderness with 1-2+ lower extremity edema bilaterally NEUROLOGICAL: No focal deficits. No aphasia. No facial droop or slurred speech. Ambulatory. EK bpm atrial fibrillation with rapid trickle response. A bit respiratory artifact. No clear acute ST segment elevation with nonspecific T wave changes and QTc of 458 CONTINUOUS CARDIAC MONITORING: was ordered and showed a heart rate of 90s-120s bpm in atrial fibrillation Patient's laboratory studies and imaging reviewed. Differential includes Reactive airway disease, pneumonia, pneumothorax, COPD, CHF, infections, cardiac ischemia, pulmonary embolism, musculoskeletal, gastrointestinal, as well as other pathologies. IMPRESSION/MEDICAL DECISION MAKING: Patient in respiratory distress and tachypneic on arrival. Hypoxic. Improved with nonrebreather but still work of breathing. Significant wheezing. Given DuoNeb and steroids and transition to BiPAP. Some swelling of the legs but not convinced this is necessary fluid overload. Does appear to have some A-fib but is anticoagulated. Low suspicion for PE. Denies any falls or trauma. Denies significant chest pain. Doubt acute ACS. Fairly benign abdomen. Will send respiratory viral panel. Believe primary is likely COPD. Chest x-ray completed to exclude findings of pneumonia or significant fluid overload. Patient much more comfortable on BiPAP. Chest x-ray obtained here and report reviewed without evidence of significant effusion or pneumonia. Blood with a slight leukocytosis of 13.6. Likely is more chronically elevated given his steroid usage and again of the lower suspicion for bacterial infection. Procalcitonin pending. BMP with some elevation. Also noted some hyperkalemia as well as some worsened renal function today from prior values from the fall. Will promote a little bit of diuresis with Lasix with may help with the hyperkalemia and any small amount of fluid overload contributing to breathing issues. Troponin is normal again I doubt ACS. Discussed with patient and son. Procalcitonin elevated we will hold off on antibiotics at this time. Patient requested Luke catheter. Some diuresis with Lasix. Should help with hyperkalemia as well. Will give low but IV magnesium. Heart rate 100s to 110s and will monitor before aggressive rate control given his significant respiratory distress was stable he was driving things. Hospitalist team consulted for the admission. Patient and son agreeable with this plan. DIAGNOSIS: Acute hypoxic respiratory failure, COPD exacerbation DISPOSITION: Hospitalist will evaluate Patient was agreeable with this plan. Critical Care I have personally spent 40 minutes of critical care time in the direct management of this patient. This includes bedside care, interpretation of diagnostic studies, and testing, discussion with consultants, patient, and family members, and other required patient management activities. These 40 minutes is in excess of all separately billable procedures. 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 Beliefs That Will Affect Care: None marital status: Current Living Situation: Spouse Current Living Situation Comment: at home with spouse current occupational status: retired Feels Safe at Home: Yes Assistive Devices: Oxygen - Continuous Allergies Allergies Allergy/AdvReac Type Severity Reaction Status Date / Time pollen extracts Allergy Mild Sneezing Verified 04/05/23 19:59 Home Meds Home Medications Medication Instructions Recorded Confirmed atorvastatin 10 mg tablet 10 mg PO QAM 04/07/19 10/29/23 fluticasone 250 mcg-salmeterol 50 1 inh inhalation BID 04/07/19 10/29/23 mcg/dose blistr powdr for inhalation (Advair Diskus) montelukast 10 mg tablet 10 mg PO QAM 05/10/20 10/29/23 [id number] tablet 1 tab PO DAILY 04/05/23 10/29/23 vit C 250 mg-vit E 90 mg-zinc 40 2 tab PO QAM 04/05/23 10/29/23 mg-copper 1 [id number] capsule (PreserVision AREDS-2) albuterol sulfate 90 mcg/actuation 2 puff inhalation Q6H PRN 10/29/23 10/29/23 aerosol inhaler sob/wheezing cholecalciferol (vitamin D3) 50 50 mcg PO DAILY 10/29/23 10/29/23 mcg (2,000 unit) capsule (Vitamin D3) dapagliflozin propanediol 10 mg 10 mg PO QAM 10/29/23 10/29/23 tablet (Farxiga) guaifenesin 600 mg tablet, 1,200 mg PO Q12H PRN Other 10/29/23 10/29/23 extended release 12 hr (Mucinex) hydroxyzine HCl 10 mg tablet 10 mg PO TID PRN anxiety 10/29/23 10/29/23 melatonin 3 mg tablet 3 mg PO HS PRN Sleep 10/29/23 10/29/23 metformin 500 mg tablet 500 mg PO BID 10/29/23 10/29/23 spironolactone 25 mg tablet 12.5 mg PO QAM 10/29/23 10/29/23 tiotropium bromide 2.5 1 puff inhalation BID 10/29/23 10/29/23 mcg/actuation mist for inhalation (Spiriva Respimat) trazodone 50 mg tablet 50 mg PO HS PRN Sleep 10/29/23 10/29/23 warfarin 2.5 mg tablet 2.5 mg PO UD 10/29/23 10/29/23 Previous Rx's Medication Instructions Recorded Oxygen Home E0424 #1 ea 04/14/23 furosemide 20 mg tablet 20 mg PO QAM #30 tabs 04/14/23 metoprolol succinate 50 mg 50 mg PO QAM #30 tabs 04/14/23 tablet,extended release 24 hr Results & Data (ED) Vital Signs Vital Signs - 24 hr 10/29/23 11:20 10/29/23 11:20 10/29/23 11:36 Temperature 36.5 C Temperature Source Temporal Artery Scan Pulse Rate 128 H Pulse Rate [Right Finger] Pulse Rate from SpO2 Sensor Pulse Rhythm Regular Respiratory Rate 26 H Respiratory Effort / Characteristics Respiratory Depth Respiratory Pattern Blood Pressure 120/77 Blood Pressure Mean 91 Pulse Oximetry 81 L Oxygen Delivery Method Nasal Cannula Nasal Cannula Room Air Oxygen Flow Rate 5 5 Fraction of Inspired Oxygen Sepsis Recent Fever Within 48 Hours No Sepsis New/Unexplained Change in Mental Status N/A Sepsis Action Taken by Nursing No Action Required 10/29/23 11:36 10/29/23 11:45 10/29/23 11:45 Temperature Temperature Source Pulse Rate 120 H 111 H Pulse Rate [Right Finger] Pulse Rate from SpO2 Sensor 109 H Pulse Rhythm Respiratory Rate 32 H 36 H Respiratory Effort / Characteristics Spontaneous Respiratory Depth Respiratory Pattern Tachypnea Blood Pressure Blood Pressure Mean Pulse Oximetry 100 96 98 Oxygen Delivery Method Non-rebreather BiPAP Oxygen Flow Rate 15 Fraction of Inspired Oxygen 40 Sepsis Recent Fever Within 48 Hours Sepsis New/Unexplained Change in Mental Status Sepsis Action Taken by Nursing 10/29/23 11:51 10/29/23 12:00 10/29/23 12:02 Temperature Temperature Source Pulse Rate 106 H 103 H Pulse Rate [Right Finger] 112 H Pulse Rate from SpO2 Sensor 96 H 104 H Pulse Rhythm Respiratory Rate 32 H 22 Respiratory Effort / Characteristics Spontaneous Respiratory Depth Respiratory Pattern Blood Pressure Blood Pressure Mean Pulse Oximetry 96 99 99 Oxygen Delivery Method BiPAP Oxygen Flow Rate Fraction of Inspired Oxygen 40 Sepsis Recent Fever Within 48 Hours Sepsis New/Unexplained Change in Mental Status Sepsis Action Taken by Nursing 10/29/23 12:02 10/29/23 12:15 10/29/23 12:30 Temperature Temperature Source Pulse Rate 97 H 114 H Pulse Rate [Right Finger] Pulse Rate from SpO2 Sensor 108 H 120 H Pulse Rhythm Respiratory Rate 20 20 Respiratory Effort / Characteristics Respiratory Depth Respiratory Pattern Blood Pressure 122/70 Blood Pressure Mean 96 Pulse Oximetry 99 100 Oxygen Delivery Method Oxygen Flow Rate Fraction of Inspired Oxygen Sepsis Recent Fever Within 48 Hours Sepsis New/Unexplained Change in Mental Status Sepsis Action Taken by Nursing 10/29/23 12:45 10/29/23 12:49 10/29/23 13:00 Temperature Temperature Source Pulse Rate 104 H 109 H 112 H Pulse Rate [Right Finger] Pulse Rate from SpO2 Sensor 107 H 112 H Pulse Rhythm Respiratory Rate 21 Respiratory Effort / Characteristics Respiratory Depth Respiratory Pattern Blood Pressure Blood Pressure Mean Pulse Oximetry 98 99 Oxygen Delivery Method Oxygen Flow Rate Fraction of Inspired Oxygen Sepsis Recent Fever Within 48 Hours Sepsis New/Unexplained Change in Mental Status Sepsis Action Taken by Nursing 10/29/23 13:15 10/29/23 13:30 10/29/23 13:45 Temperature Temperature Source Pulse Rate 104 H 111 H 110 H Pulse Rate [Right Finger] Pulse Rate from SpO2 Sensor 118 H 100 H 113 H Pulse Rhythm Respiratory Rate 18 Respiratory Effort / Characteristics Respiratory Depth Respiratory Pattern Blood Pressure Blood Pressure Mean Pulse Oximetry 99 99 100 Oxygen Delivery Method Oxygen Flow Rate Fraction of Inspired Oxygen Sepsis Recent Fever Within 48 Hours Sepsis New/Unexplained Change in Mental Status Sepsis Action Taken by Nursing 10/29/23 14:00 10/29/23 14:30 10/29/23 14:31 Temperature Temperature Source Pulse Rate 106 H 107 H 111 H Pulse Rate [Right Finger] Pulse Rate from SpO2 Sensor 98 H 97 H Pulse Rhythm Respiratory Rate 24 20 21 Respiratory Effort / Characteristics Spontaneous Respiratory Depth Normal Respiratory Pattern Regular Blood Pressure Blood Pressure Mean Pulse Oximetry 100 100 100 Oxygen Delivery Method BiPAP BiPAP Oxygen Flow Rate Fraction of Inspired Oxygen 40 Sepsis Recent Fever Within 48 Hours Sepsis New/Unexplained Change in Mental Status Sepsis Action Taken by Nursing Laboratory Data 10/29/23 11:45 10/29/23 11:45 Lab Results 03/14/24 03/14/24 03/14/24 Range/Units 11:45 12:00 13:50 WBC 13.67 H (4.8-10.8) K/ul RBC 4.32 L (4.70-6.10) M/uL Hgb 13.2 L (14.0-18.0) g/dl Hct 39.5 L (42.0-52.0) % MCV 91.4 (80.0-100.0) fL MCH 30.6 (25.0-34.0) pg MCHC 33.4 (32.0-36.0) g/dL RDW Std Deviation 74.6 H (36.4-46.3) fL RDW Coeff of Whitney 22.7 H (11.5-14.5) % Plt Count 166 (130-400) K/uL MPV 11.9 (9.4-12.4) fL Immature Gran % (Auto) 0.7 % Neut % (Auto) 82.9 % Lymph % (Auto) 11.1 % [place] % (Auto) 4.6 % Eos % (Auto) 0.4 % Baso % (Auto) 0.3 % Neut # (Auto) 11.33 H (1.40-6.50) K/uL Lymph # (Auto) 1.52 (1.20-3.40) K/uL [place] # (Auto) 0.63 H (0.11-0.59) K/uL Eos # (Auto) 0.06 (0.00-0.50) K/uL Baso # (Auto) 0.04 (0.00-0.20) K/uL Immature Gran # (Auto) 0.09 (0.01-0.20) K/uL Polychromasia 1+ Anisocytosis Present PT 21.7 H (9.0-12.0) Seconds INR 2.1 H (0.9-1.1) APTT 36 H (21-31) Seconds PTT Ratio 1.3 Sodium 136 (136-145) mmol/L Potassium 5.4 H (3.5-5.1) mmol/L Chloride 101 (98-107) mmol/L Carbon Dioxide 21 (21-32) mmol/L Anion Gap 14 H (3-11) BUN 38 H (6-23) mg/dl Creatinine 1.92 H (0.6-1.4) mg/dl Est Cr Clr Drug Dosing Not Reportable Est GFR ( Amer) 36.8 ml/min Est GFR (Non-Af Amer) 31.7 ml/min BUN/Creatinine Ratio 19.8 (10-20) Glucose 122 H (70-99(Fasting)) mg/dl Calcium 9.1 (8.6-10.3) mg/dl Magnesium 2.3 (1.7-2.4) mg/dl Total Bilirubin 1.0 (0.2-1.0) mg/dl AST 23 (13-39) U/L ALT 24 (7-52) U/L Alkaline Phosphatase 50 (34-104) U/L Troponin I High Sens 18.5 (0-20) pg/ml B-Natriuretic Peptide 768 H (0-100) pg/ml Total Protein 7.0 (6.0-8.3) gm/dl Albumin 4.0 (3.4-5.0) gm/dl Globulin 3.0 (2.5-4.0) gm/dl Albumin/Globulin Ratio 1.3 (0.9-2) Procalcitonin 0.07 (0-0.5) ng/ml Urine Color Yellow Urine Appearance Clear (Clear) Urine pH 5.5 (4.5-7.5) Ur Specific [place] 1.012 (1.000-1.030) Urine Protein Negative (Negative) Urine Glucose (UA) 2+ H (Negative) Urine Ketones Trace H (Negative) Urine Blood Negative (Negative) Urine Nitrite Negative (Negative) Urine Bilirubin Negative (Negative) Urine Urobilinogen Negative (Negative) Ur Leukocyte Esterase Negative (Negative) Adenovirus (PCR) Not Detected (NotDetected) B. pertussis DNA (PCR) Not Detected (NotDetected) B.parapertussis DNA PCR Not Detected (NotDetected) C. pneumoniae DNA (PCR) Not Detected (NotDetected) Coronavirus OC43 (PCR) Not Detected (NotDetected) Coronavirus HKU1 (PCR) Not Detected (NotDetected) Coronavirus 229E (PCR) Not Detected (NotDetected) SARS-CoV-2 (PCR) Not Detected (NotDetected) Coronavirus NL63 (PCR) Not Detected (NotDetected) Human Metapneumovir PCR Not Detected (NotDetected) Influenza Type A (PCR) Not Detected (NotDetected) Influenza Type B (PCR) Not Detected (NotDetected) M. pneumoniae (PCR) Not Detected (NotDetected) Parainfluenza 1 (PCR) Not Detected (NotDetected) Parainfluenza 2 (PCR) Not Detected (NotDetected) Parainfluenza 3 (PCR) Not Detected (NotDetected) Parainfluenza 4 (PCR) Not Detected (NotDetected) RSV (PCR) Not Detected (NotDetected) Entero/Rhino (PCR) Not Detected (NotDetected) Administered Medications Discontinued Medications Albuterol (Albut/Ipratrop 3mg/0.5mg Neb 3 Ml Vial) 12 ml INH ONE STA Stop: 10/29/23 11:36 Last Admin: 10/29/23 11:45 Dose: 12 ml Documented By: YOYL Furosemide (Furosemide 40 Mg/4 Ml Vial) 40 mg IV ONE ONE Stop: 10/29/23 12:57 Last Admin: 10/29/23 13:31 Dose: 40 mg Documented By: GEORGE Magnesium Sulfate/Dextrose (Magnesium Sulfate / D5w) 1 gm in 100 mls @ 100 mls/hr IV NOW STA Stop: 10/29/23 14:11 Last Infusion: 10/29/23 14:29 Dose: Infused Documented By: Admin: 10/29/23 13:26 Dose: 100 mls/hr Documented By: GEORGE Methylprednisolone (Methylprednisolone 125 Mg/2 Ml Vial) 125 mg IV NOW STA Stop: 10/29/23 11:36 Last Admin: 10/29/23 11:39 Dose: 125 mg Documented By: GEORGE Imaging Data Radiologist's Impression: Chest X-Ray 10/29/23 11:35 XR chest 1V portable CLINICAL HISTORY: Dyspnea COMPARISON STUDY: Chest radiograph April 06, 2023. Chest CT April 08, 2023. FINDINGS: There is no pneumothorax or pleural effusion. Lower lung interstitial thickening is chronic. There is underlying emphysema. No consolidation is identified to suggest pneumonia. Irregular nodular density within the left midlung could represent the nodule shown on CT of April 08, 2023. Cardiomediastinal silhouette is stable. There is no evidence for pulmonary edema. IMPRESSION: 1. No acute cardiopulmonary findings. Emphysema. 2. Irregular nodular density within the left midlung which could represent the nodule shown on CT of April 08, 2023. This remains indeterminate and can be assessed on follow-up CT. ACT 112: Negative or not required by law. Electronically signed by: Josias Louis M.D. 10/29/2023 12:55 PM Discharge Plan Visit Data Chief Complaint: Shortness of Breath/Dyspnea Stated Complaint: LOW O2, SOB ED Provider: Quintin Reynolds Discharge Problem: Acute and chronic respiratory failure with hypoxia, COPD (chronic obstructive pulmonary disease), Atrial fibrillation with RVR, CHF (congestive heart failure), Elevated serum creatinine Patient Disposition: Admitted As Inpatient Discharge Instructions Interventions: ED Discharge Assessment Last Done: 10/29/23 16:03
[2023-10-29 12:10] LABS: Basophils # (auto) 0.04 K/uL (0.00-0.20); Basophils % (auto) 0.3 %; Eosinophils # (auto) 0.06 K/uL (0.00-0.50); Eosinophils % (auto) 0.4 %; Hematocrit (blood only) 39.5 % (42.0-52.0); Hemoglobin 13.2 g/dl (14.0-18.0); Immature Granulocytes # (auto) 0.09 K/uL (0.01-0.20); Immature Granulocytes % (auto) 0.7 %; Lymphocytes # (auto) 1.52 K/uL (1.20-3.40); Lymphocytes % (auto) 11.1 %; Mean Corpuscular Hemoglobin 30.6 pg (25.0-34.0); Mean Corpuscular Hgb Conc 33.4 g/dL (32.0-36.0); Mean Corpuscular Volume 91.4 fL (80.0-100.0); Mean Platelet Volume 11.9 fL (9.4-12.4); Monocytes # (auto) 0.63 K/uL (0.11-0.59); Monocytes % (auto) 4.6 %; Neutrophils # (auto) 11.33 K/uL (1.40-6.50); Neutrophils % (auto) 82.9 %; Platelet Count 166 K/uL (130-400); RDW Coefficient of Variation 22.7 % (11.5-14.5); RDW Standard Deviation 74.6 fL (36.4-46.3); Red Blood Count 4.32 M/uL (4.70-6.10); White Blood Count 13.67 K/ul (4.8-10.8)
[2023-10-29 12:35] LABS: Alanine Aminotransferase 24 U/L (7-52); Albumin Globulin Ratio 1.3 (0.9-2); Alkaline Phosphatase 50 U/L (34-104); Anion Gap 14 (3-11); Aspartate Aminotransferase 23 U/L (13-39); BUN Creatinine Ratio 19.8 (10-20); Blood Urea Nitrogen 38 mg/dl (6-23); Calcium 9.1 mg/dl (8.6-10.3); Carbon Dioxide 21 mmol/L (21-32); Chloride 101 mmol/L (98-107); Est GFR (African American) 36.8 ml/min; Est GFR (Non-African American) 31.7 ml/min; Glucose 122 mg/dl (70-99(Fasting)); INR 2.1 (0.9-1.1); Magnesium 2.3 mg/dl (1.7-2.4); Partial Thromboplastin Ratio 1.3; Partial Thromboplastin Time 36 Seconds (21-31); Potassium 5.4 mmol/L (3.5-5.1); Prothrombin Time 21.7 Seconds (9.0-12.0); Sodium 136 mmol/L (136-145)
[2023-10-29 12:36] LABS: Anisocytosis Present; Polychromasia 1+
[2023-10-29 12:40] LABS: Troponin I High Sensitivity 18.5 pg/ml (0-20)
--- NOTE | 2023-10-29 12:57 | XRay Report ---
XR chest 1V portable CLINICAL HISTORY: Dyspnea COMPARISON STUDY: Chest radiograph April 06, 2023. Chest CT April 08, 2023. FINDINGS: There is no pneumothorax or pleural effusion. Lower lung interstitial thickening is chronic . There is underlying emphysema. No consolidation is identified to suggest pneumonia. Irregular nodul ar density within the left midlung could represent the nodule shown on CT of April 08, 2023. Cardiom ediastinal silhouette is stable. There is no evidence for pulmonary edema. IMPRESSION: 1. No acute cardiopulmonary findings. Emphysema. 2. Irregular nodular density within the left midlung which could represent the nodule shown on CT of April 08, 2023. This remains indeterminate and can be assessed on follow-up CT. ACT 112: Negative or not required by law. Electronically signed by: Josias Louis M.D. 10/29/2023 12:55 PM
[2023-10-29 13:15] LABS: Adenovirus PCR Not Detected (NotDetected); Bordetella parapertussis PCR Not Detected (NotDetected); Bordetella pertussis PCR Not Detected (NotDetected); Chlamydia pneumoniae PCR Not Detected (NotDetected); Coronavirus 229E PCR Not Detected (NotDetected); Coronavirus CoV-2 (COVID19)PCR Not Detected (NotDetected); Coronavirus HKU1 PCR Not Detected (NotDetected); Coronavirus NL63 PCR Not Detected (NotDetected); Coronavirus OC43PCR Not Detected (NotDetected); Human Metapneumovirus PCR Not Detected (NotDetected); Influenza A PCR Not Detected (NotDetected); Influenza B PCR Not Detected (NotDetected); Mycoplasma pneumoniae PCR Not Detected (NotDetected); Parainfluenza Virus 1 PCR Not Detected (NotDetected); Parainfluenza Virus 2 PCR Not Detected (NotDetected); Parainfluenza Virus 3 PCR Not Detected (NotDetected); Parainfluenza Virus 4 PCR Not Detected (NotDetected); Respiratory Syncytial VirusPCR Not Detected (NotDetected); Rhinovirus/Enterovirus PCR Not Detected (NotDetected)
[2023-10-29] MEDS: MAGNESIUM SULFATE / D5W 1 GM/100 ML BAG IV STA (13:26)
[2023-10-29] MEDS: FUROSEMIDE 40 MG/4 ML VIAL IV ONE (13:31)
--- NOTE | 2023-10-29 13:38 | History & Physical Report ---
Date of Service October 29, 2023 Assessment & Plan (1) Acute and chronic respiratory failure with hypoxia: Plan: Worsening SOB over the past week, with acute hypoxia the morning of 10/28; SpO2 74% on 5L NC, per patient Recent discharge from rehab 1 week ago for pneumonia Hospitalized at [facility] twice over the past couple months Started on BiPAP in the ED BioFire negative Leukocytosis at 13.67 with a neutrophil predominance; in the setting of chronic steroid use Procalcitonin WNL Continue BiPAP and wean down as tolerated Trend VBG q4h while on Bipap A.m. CBC, BMP, PT/INR, mag (2) Acute diastolic CHF (congestive heart failure): Plan: BNP elevated at 768 Normally on Lasix 20 mg p.o. daily Lasix 40 mg IV given in the ED Last echo on 04/09/2023 revealed LVEF at 60 to 65% Repeat echo ordered, pending (3) COPD (chronic obstructive pulmonary disease): Plan: Flutter valve, incentive spirometry Continue Bipap, then titrate down on O2 to maintain oxygen levels 89-92% (4) JOSEFINA (acute kidney injury): Plan: BUN 38, creatinine 1.92 (baseline 1.13), EGFR 36.8 on arrival Avoid nephrotoxic agents Continue to monitor with daily BMP, will hold off on IVF resuscitation in the setting of acute on chronic CHF (5) Atrial fibrillation with RVR: Plan: EKG on arrival revealed A-fib with RVR at 119 bpm On warfarin; INR 2.1 on arrival Continue warfarin, metoprolol Trend PT/INR (6) Hyperkalemia: Plan: Mild (resolved); K 5.4 on arrival --> 5.0 on recheck Lasix 40 mg IV given in the ED, which should decrease potassium level Hold further Lasix, spironolactone Recheck a.m. BMP (7) Type 2 diabetes mellitus: Plan: Last A1c at 7.3% on 04/13/2023 Glucose 122 on admission Hold metformin, dapagliflozin Recommend increased basal bolus in the setting of steroid use/JOSEFINA Pharmacy glycemic consult Lantus 12u BID; SSI w/ target range 110-140 T2DM diet BSG ACHS Adjust regimen as needed (8) Esophageal dysmotility: Plan: Aspiration precautions Plan Disposition: Admit to PCU telemetry DNR/DNI AHA, T2DM, low-sodium diet (1800 mL fluid restriction) VTE PPx: On warfarin History of Present Illness Chief Complaint: SOB/dyspnea Primary Care Provider: Arun Gonsales is an 83-year-old male with PMH of CAD, dyslipidemia, HTN, aspiration pneumonia, COPD, A-fib with RVR, CHF, esophageal dysmotility, and T2DM. He presented for worsening pneumonia, SOB, and hypoxia x 1 week. Recently discharged from rehab 1 week ago for pneumonia. Patient reports feeling okay after discharge for 2 to 3 days, then developed worsening DEUTSCH and chest palpitations over the course of the week. In the morning of 10/28, he noted that he was hypoxic at 74% SpO2 on 5L at home using a home pulse ox. SOB is worse when lying flat. Patient saw Anibal pulmonology at [facility] on Friday 10/27 and it was recommended he titrate up on his oxygen. Patient ports that he took all of his regular morning medications; the medications are managed by his daughter who lives nearby (she is a nurse). Patient is a former tobacco cigarette smoker but quit in 1978; he does still chew snuff; no alcohol use. Vitals at time of admission: tachycardic at 109 bpm, tachypneic at 32 rpm, and SpO2 is 96% on BiPAP (FiO2 ratio 40). ED course: Started on BiPAP Magnesium sulfate 1 g IV DuoNeb 12 mL IV Solu-Medrol 125 mg IV Lasix 40 mg IV ROS: Patient endorses dizziness/lightheadedness, minimal productive cough (clear sputum), chest palpitations, DEUTSCH, and swelling in legs. Patient denies fever, chills, nightsweats, ARGUELLO, chest pain, left arm/shoulder/jaw pain, abdominal pain, N/V/D, urinary s/s, numbness/tingling/pain/erythema in legs. Allergies Allergy/AdvReac Type Severity Reaction Status Date / Time pollen extracts Allergy Mild Sneezing Verified 04/05/23 19:59 Home Medications Medication Instructions Recorded Confirmed Type atorvastatin 10 mg tablet 10 mg PO QAM 04/07/19 10/29/23 History fluticasone 250 mcg-salmeterol 50 1 inh inhalation BID 04/07/19 10/29/23 History mcg/dose blistr powdr for inhalation (Advair Diskus) montelukast 10 mg tablet 10 mg PO QAM 05/10/20 10/29/23 History jmugznuysntm-qyfdeapj-trbzwt tablet 1 tab PO DAILY 04/05/23 10/29/23 History vit C 250 mg-vit E 90 mg-zinc 40 2 tab PO QAM 04/05/23 10/29/23 History mg-copper 1 ab-iqbqqr-xzdmmx capsule (PreserVision AREDS-2) Oxygen Home E0424 #1 ea 04/14/23 Rx furosemide 20 mg tablet 20 mg PO QAM #30 tabs 04/14/23 10/29/23 Rx metoprolol succinate 50 mg 50 mg PO QAM #30 tabs 04/14/23 10/29/23 Rx tablet,extended release 24 hr albuterol sulfate 90 mcg/actuation 2 puff inhalation Q6H PRN 10/29/23 10/29/23 History aerosol inhaler sob/wheezing cholecalciferol (vitamin D3) 50 50 mcg PO DAILY 10/29/23 10/29/23 History mcg (2,000 unit) capsule (Vitamin D3) dapagliflozin propanediol 10 mg 10 mg PO QAM 10/29/23 10/29/23 History tablet (Farxiga) guaifenesin 600 mg tablet, 1,200 mg PO Q12H PRN Other 10/29/23 10/29/23 History extended release 12 hr (Mucinex) hydroxyzine HCl 10 mg tablet 10 mg PO TID PRN anxiety 10/29/23 10/29/23 History melatonin 3 mg tablet 3 mg PO HS PRN Sleep 10/29/23 10/29/23 History metformin 500 mg tablet 500 mg PO BID 10/29/23 10/29/23 History spironolactone 25 mg tablet 12.5 mg PO QAM 10/29/23 10/29/23 History tiotropium bromide 2.5 1 puff inhalation BID 10/29/23 10/29/23 History mcg/actuation mist for inhalation (Spiriva Respimat) trazodone 50 mg tablet 50 mg PO HS PRN Sleep 10/29/23 10/29/23 History warfarin 2.5 mg tablet 2.5 mg PO UD 10/29/23 10/29/23 History Past Med/Surg History Medical History (Updated 03/14/24 @ 16:51 by Quintin Reynolds M.D.) DVT prophylaxis Lower extremity edema Food impaction of esophagus COPD (chronic obstructive pulmonary disease) CAD (coronary artery disease) Dyslipidemia HTN (hypertension) Emphysema of lung Family History Other Family history non-contributory Social History Smoking Status: Former smoker Tobacco Type: Cigarettes Second Hand Exposure: No; Do You Dip or Chew Tobacco: Yes; Hx Alcohol Use: No Hx Substance Use: No Preferred Language: Azeri Communication Ability: Effective Probation And Patrol Agent Required: No Beliefs That Will Affect Care: Rastafarian marital status: Current Living Situation: Spouse Current Living Situation Comment: lives at home with , son checks in regularly current occupational status: retired Other Information That Helps Us Care for You: No Feels Safe at Home: Yes Safety Concerns: Feels Safe At This Time Assistive Devices: Cane, Glasses, Oxygen - Continuous and Walker Assistive Devices Comment: has cane and walker sometimes; uses oxygen 5L at home cont. Review of Systems Review of Systems: See HPI above Physical Exam Physical Exam: General: Moderate respiratory distress on BiPAP; non-toxic appearing; well- nourished; cooperative; SpO2 99% on BiPAP HEENT: normocephalic, atraumatic; no scleral icterus; PERRLA w/ EOMs intact; moist mucus membrane; vision and hearing grossly intact Neck: supple; negative for JVD; no lymphadenopathy; trachea midline Skin: warm, dry without signs of tenting; no cyanosis; no rashes, bruising, lesions, or erythema noted CV: chest wall NTP; irregular regular rhythm at 110 bpm; S1/S2 normal; no murmurs/rubs/gallops; pulses intact and symmetric at radial, DP, and PT Lungs: Moderate respiratory distress; symmetrical chest wall expansion; diminished breath sounds across all lung dyson w/o adventitious sounds; no wheezing ABD: Soft, NTP; BS present; no rebound/guarding; no ascites; no distention; negative CVA tenderness MSK: no tics or fasciculations; nonpitting edema in the LEs B/L, nonerythematous Neuro: A&Ox3; normal mood and affect; fluent speech; no focal deficits; sensation grossly intact in the LEs b/l Results & Data Results & Data Vital Signs (Past 12 Hours) Vital Signs Temp Pulse Pulse Resp BP Pulse Ox O2 Del Method 10/29/23 12:49 109 H 10/29/23 11:51 112 H 32 H 96 BiPAP 10/29/23 11:45 111 H 36 H 98 BiPAP 10/29/23 11:45 120 H 32 H 96 10/29/23 11:36 100 Non-rebreather 10/29/23 11:36 Room Air 10/29/23 11:20 36.5 C 128 H 26 H 120/77 81 L Nasal Cannula 10/29/23 11:20 Nasal Cannula O2 Flow Rate FiO2 10/29/23 12:49 10/29/23 11:51 40 10/29/23 11:45 10/29/23 11:45 40 10/29/23 11:36 15 10/29/23 11:36 10/29/23 11:20 5 10/29/23 11:20 5 Laboratory Results Abnormal lab results 10/29/23 Range/Units 11:45 WBC 13.67 H (4.8-10.8) K/ul RBC 4.32 L (4.70-6.10) M/uL Hgb 13.2 L (14.0-18.0) g/dl Hct 39.5 L (42.0-52.0) % RDW Std Deviation 74.6 H (36.4-46.3) fL RDW Coeff of Whitney 22.7 H (11.5-14.5) % Neut # (Auto) 11.33 H (1.40-6.50) K/uL [place] # (Auto) 0.63 H (0.11-0.59) K/uL PT 21.7 H (9.0-12.0) Seconds INR 2.1 H (0.9-1.1) APTT 36 H (21-31) Seconds Potassium 5.4 H (3.5-5.1) mmol/L Anion Gap 14 H (3-11) BUN 38 H (6-23) mg/dl Creatinine 1.92 H (0.6-1.4) mg/dl Glucose 122 H (70-99(Fasting)) mg/dl B-Natriuretic Peptide 768 H (0-100) pg/ml Diagnostic Findings Chest X-Ray 10/29/23 11:35 XR chest 1V portable CLINICAL HISTORY: Dyspnea COMPARISON STUDY: Chest radiograph April 06, 2023. Chest CT April 08, 2023. FINDINGS: There is no pneumothorax or pleural effusion. Lower lung interstitial thickening is chronic. There is underlying emphysema. No consolidation is identified to suggest pneumonia. Irregular nodular density within the left midlung could represent the nodule shown on CT of April 08, 2023. Cardiomediastinal silhouette is stable. There is no evidence for pulmonary edema. IMPRESSION: 1. No acute cardiopulmonary findings. Emphysema. 2. Irregular nodular density within the left midlung which could represent the nodule shown on CT of April 08, 2023. This remains indeterminate and can be assessed on follow-up CT. ACT 112: Negative or not required by law. Electronically signed by: Josias Louis M.D. 10/29/2023 12:55 PM Code Status & VTE Plan Code Status DNR/DNI VTE Prophylaxis Plan VTE Prophylaxis will be ordered: Yes Supervising Physician Co-Signing Physician Notes Patient seen and examined, chart reviewed, case discussed with Sanjiv Lerma and I agree with the assessment and plan as above except as otherwise noted Labs and images reviewed 61-year-old male with a history of COPD, A-fib, diastolic CHF, and anticoagulation with warfarin for which she has been compliant and has not been subtherapeutic in the last 2 months. Previously on Eliquis, patient is currently on warfarin and reports his last check just 2 weeks ago was an INR of 2.6 as an outpatient. He presents with acute shortness of breath and hypoxia. He has minimal wheezing on exam, greatly improved at time of assessment on BiPAP and after Lasix. He has a slight leukocytosis but no fever/chills/sweats? Leukocytosis from steroids. No signs of pneumonia, no fever/chills/sweats, and procalcitonin is normal. He endorses orthopnea, feels he has some baseline leg swelling but this is at his normal baseline and that they are not particularly more swollen than usual for him. Denies chest pain or chest pressure at any point. Echo 2020 reviewed normal RV size and function with PASP of 50, EF 55 to 60%. While he does have an elevated BNP, does not appear to have much edema on chest x-ray. Legs are with mild ankle edema he reports this is actually normal to a little dry for him and he does not feel volume overloaded.? Pulmonary hypertension/cor pulmonale. He feels greatly improved with BiPAP and Lasix, he does have mild hyperkalemia and an JOSEFINA with creatinine elevated to 1.92. Will defer both additional diuresis and fluid and follow progression and trend BMP. Weight pending. Repeat echo is pending, patient has been compliant with his warfarin and has been within therapeutic range for the last 2 months low suspicion for PE and feel the risks of contrast in the setting of his JOSEFINA outweigh the benefits with low risk at time of admission. Agree with assessment and management above. PG Care Time/CCT Total # of Minutes Spent Total Time Spent with Patient: Total time spent is greater than 50% in coordination of care (as documented) at patient's floor/unit and/or counseling patient: Coding [place] [address] INT INP/OBS CARE 3/75MIN Patient Type Established History Comprehensive Exam Comprehensive Medical Decision Making High Complexity Diagnoses Acute and chronic respiratory failure with hypoxia J96.21 Acute diastolic CHF (congestive heart failure) I50.31 COPD (chronic obstructive pulmonary disease) J44.9 JOSEFINA (acute kidney injury) N17.9 Atrial fibrillation with RVR I48.91 Hyperkalemia E87.5 Type 2 diabetes mellitus E11.9 Esophageal dysmotility K22.4
[2023-10-29 14:31] LABS: Appearance Urine Clear (Clear); Bilirubin Urine Negative (Negative); Blood Urine Negative (Negative); Color Urine Yellow; Glucose Urine UA 2+ (Negative); Ketones Urine Trace (Negative); Leukocyte Esterase Urine Negative (Negative); Nitrite Urine Negative (Negative); Protein Urine Negative (Negative); Specific Gravity Urine 1.012 (1.000-1.030); Urobilinogen Urine Negative (Negative); pH Urine 5.5 (4.5-7.5)
[2023-10-29] MEDS ORDERED: GLUCOSE 10 TAB/TUBE PO PRN (16:27)
[2023-10-29] MEDS ORDERED: GLUCAGON FOR INJ 1 MG VIAL SQ PRN (16:27)
[2023-10-29] MEDS ORDERED: DEXTROSE 50% 50 ML SYRINGE IV PRN (16:27)
[2023-10-29] MEDS ORDERED: PHARMACY GLYCEMIC MGMT CONSULT PRN (16:27)
[2023-10-29] MEDS ORDERED: ACETAMINOPHEN 325 MG TAB PO PRN (16:27)
[2023-10-29] MEDS ORDERED: ALBUTEROL HFA 8 GM INHALER INH PRN (16:27)
[2023-10-29] MEDS ORDERED: ONDANSETRON INJ 2 MG/ML 2 ML VIAL IV PRN (16:27)
[2023-10-29] MEDS ORDERED: GLUCOSE 40% GEL 15 GM TUBE PO PRN (16:27)
[2023-10-29 16:56] LABS: Base Excess VBG 0.3 mEq/L; HCO3 VBG 25 mmol/L; Oxygen Saturation VBG < 60.0 %; PCO2 VBG 42 mmHg (38-50); PO2 VBG 33 mmHg; pH VBG 7.39 (7.36-7.41)
[2023-10-29] MEDS: WARFARIN SOD 2.5 MG TAB PO SCH (18:13)
[2023-10-29] MEDS: INSULIN ASPART PER UNIT CHARGE SC SCH (19:09)
[2023-10-29 20:57] LABS: BUN Creatinine Ratio 20.2 (10-20); Calcium 8.8 mg/dl (8.6-10.3); Creatinine Clr Calc Pharmacy 29.8 ml/min; Est GFR (African American) 37.7 ml/min; Est GFR (Non-African American) 32.5 ml/min
[2023-10-29] MEDS: guaiFENesin 600 MG TABCR PO SCH (21:02)
[2023-10-29] MEDS: LANTUS PER UNIT CHARGE SQ SCH (21:04)
[2023-10-29] MEDS: hydrOXYzine HCl 10 MG TAB PO PRN (21:39)
[2023-10-29] MEDS: MELATONIN 3 MG TAB PO PRN (21:39)
[2023-10-29] MEDS: METOPROLOL TARTRATE 1 MG/ML VIAL IV STA (22:09)
[2023-10-29] MEDS: ALBUMIN 5% 250 ML IV ONE (23:42)
[2023-10-30] MEDS: ALBUMIN 5% 250 ML IV ONE (00:44)
[2023-10-30 06:55] LABS: Basophils # (auto) 0.01 K/uL (0.00-0.20); Basophils % (auto) 0.1 %; Hematocrit (blood only) 31.6 % (42.0-52.0); Hemoglobin 10.6 g/dl (14.0-18.0); Immature Granulocytes # (auto) 0.04 K/uL (0.01-0.20); Immature Granulocytes % (auto) 0.5 %; Lymphocytes % (auto) 16.3 %; Mean Corpuscular Hemoglobin 30.4 pg (25.0-34.0); Mean Corpuscular Hgb Conc 33.5 g/dL (32.0-36.0); Mean Corpuscular Volume 90.5 fL (80.0-100.0); Mean Platelet Volume 11.2 fL (9.4-12.4); Monocytes # (auto) 0.55 K/uL (0.11-0.59); Monocytes % (auto) 6.4 %; Neutrophils # (auto) 6.61 K/uL (1.40-6.50); Neutrophils % (auto) 76.7 %; Platelet Count 126 K/uL (130-400); RDW Coefficient of Variation 21.8 % (11.5-14.5); RDW Standard Deviation 71.2 fL (36.4-46.3); Red Blood Count 3.49 M/uL (4.70-6.10); White Blood Count 8.61 K/ul (4.8-10.8)
[2023-10-30 07:24] LABS: BUN Creatinine Ratio 24.1 (10-20); Calcium 8.3 mg/dl (8.6-10.3); Creatinine Clr Calc Pharmacy 35.8 ml/min; Est GFR (African American) 46.5 ml/min; Est GFR (Non-African American) 40.1 ml/min; Magnesium 2.5 mg/dl (1.7-2.4); Potassium 4.6 mmol/L (3.5-5.1)
[2023-10-30 07:33] LABS: Anisocytosis Present; Ovalocytes 1+
[2023-10-30 07:44] LABS: Estimated Average Glucose 151 mg/dl; Hemoglobin A1C 6.9 % (4.5-5.6)
[2023-10-30 07:49] LABS: INR 2.2 (0.9-1.1)
[2023-10-30] MEDS: LANTUS PER UNIT CHARGE SC SCH (08:21)
[2023-10-30] MEDS: methylPREDNISolone 40 MG in SYRINGE 0 ML IV SCH (08:23)
[2023-10-30] MEDS: METOPROLOL SUCC 50MG EXT REL TAB PO SCH (08:23)
[2023-10-30] MEDS: MONTELUKAST SODIUM 10 MG TABLET PO SCH (08:23)
[2023-10-30] MEDS: ATORVASTATIN 10 MG TAB PO SCH (08:23)
[2023-10-30] MEDS: FLUTICASONE/VILANTEROL 100/25MCG 14 PUFFS/INHALER INH SCH (08:24)
--- NOTE | 2023-10-30 11:46 | Pharmacy Report ---
Pharmacy Glycemic Short Note 2 - Date of Service October 30, 2023 - Glycemic Short BSG Results (Last 24 hours): 10/29/23 10/29/23 10/29/23 11:45 16:32 18:53 Glucose 122 H POC Glucose 136 H 133 H 10/29/23 10/29/23 10/30/23 20:05 20:22 05:38 Glucose 161 H 93 POC Glucose 163 H 10/30/23 10/30/23 07:13 11:31 Glucose POC Glucose 94 85 OUTPATIENT ANTIDIABETIC REGIMEN: * Farxiga 10 mg PO QAM * Metformin 500 mg PO BID HbA1c: 6.9% on 10/30/23 ASSESSMENT: * 83 y/o M admitted for acute on chronic respiratory failure, JOSEFINA. He was recently admitted for pneumonia. History of Type 2 diabetes. * Holding oral anti-diabetic home meds while admitted and utilizing basal + bolus insulin for glycemic control while admitted. * Basal insulin 12 units based on stress of 2 given last night. Reduced to basal 8 units once daily this morning since fasting BSG = 93 mg/dl. * Novolog parameters were initiated based on stress between 2 and 3. Pre-lunch BSG trended down to 85 mg/dl. Parameters loosened with lunch. PLAN FOR INPATIENT GLYCEMIC CONTROL: * Hold outpatient oral diabetes medications * Basal insulin * Lantus 8 units SQ QAM * Bolus insulin * NovoLog per scale ACHS or Q6hrs while NPO * Goal Range: Low 110 mg/dL - High 140 mg/dL * Correction Factor: 30 mg/dL/unit * Nutritional / Prandial insulin per carb ratio of 1 unit per 15 grams CHO consumed
--- OUTSIDE RECORDS SUMMARY | 2023-10-30 12:07 | External Medical Summary | Summary of Care ---
Author Name Unknown Organization [facility] Address [address] [place] [address] Phone [phone] Care Team Providers Care Shot Examiner Name Role Phone Arun Alexandre MD Primary Care Provider Reason for Visit * Reason Onset Date Comments Referral Requested by Specialist 10/27/2023 Encounter Details Date Type Department Care Team (Late st Contact Info) Description 10/27/2023 Telephone Cardiology, [facility] [address] [facility] [place] [id number] Harika Álvarez CRNP [address] [place] [place] [address] Referral Requested by Specialist Allergies Active Allergy Reactions Criticality Noted Date Comments Isosorbide Nitrate 05/07/2021 Headache Pollen Other (Please comment) 01/17/2014 Runny nose, itchy eyes, nasal congestion documented as of this encounter (statuses as of 10/27/2023) Medications Medication Sig Dispensed Refills Start Date End Date Status CENTRUM SILVER PO TABS once daily 0 Active Multiple Vitamins-Minerals (PRESERVISION/LUTEIN ) Capsule Take 2 Capsules by mouth in the morning. 0 Active oxygen GAS Use 2 L/min(Oxygen) as directed daily. 0 02/05/2016 Active Magnesium Oxide 400 MG CapsuleIndications:H TN, goal below 140/90,Atrial ectopy Take 1 Cap by mouth daily. 34 Cap 11 01/20/2017 Active Additional Information Patient not taking.Reported on 10/27/2023 dutasteride (AVODART) 0.5 MG Capsule Take 1 Capsule by mouth in the morning. 0 Active diphenhydrAMINE HCl (BENADRYL) 12.5 MG/5ML liquid Take 10 mL by mouth 4 times a day as needed for Rhinitis. 0 Active Fluticasone-Salmeter ol 250-50 MCG/DOSE Inhalation Aerosol Powder Breath Activated (Advair Diskus)Indications:C OPD, group D, by GOLD 2017 classification ([facility]) Inhale 1 Puff by mouth 2 times a day. 180 Each 3 05/16/2021 Active Spiriva Respimat 2.5 MCG/ACT Inhalation Aerosol SolutionIndications: COPD, group D, by GOLD 2017 classification ([facility]) Take 2 puffs once daily 12 g 3 05/16/2021 Active Montelukast Sodium 10 MG Oral Tablet (Singulair)Indicatio ns:COPD, group D, by GOLD 2017 classification ([facility]) Take 1 Tab by mouth every evening. 90 Tab 3 05/16/2021 Active Fluticasone Propionate 50 MCG/ACT Nasal Suspension (Flonase)Indications :COPD, group D, by GOLD 2017 classification ([facility]) Administer 2 Sprays into nostril daily. 16 g 3 05/16/2021 Active Omeprazole 20 MG Oral Capsule Delayed Release (PriLOSEC)Indication s:Gastroesophageal reflux disease without esophagitis Take 1 Cap by mouth daily as needed for Heartburn. 90 Cap 3 05/16/2021 Active guaiFENesin ER 600 MG Oral Tablet Extended Release 12 Hour Take 1 Tablet by mouth in the morning. 0 Active D3 50 MCG (2000 UT) Oral Tablet (Cholecalciferol) Take 1 Tablet by mouth in the morning. 25 mcg. 0 Active Mupirocin 2 % External Ointment (Bactroban) Apply to wound on left wrist daily 22 g 0 07/21/2022 Active Additional Information Patient not taking.Reported on 10/14/2022 Furosemide 20 MG Oral Tablet (Lasix) TAKE 1 TABLET BY MOUTH DAILY 5 DAYS PER WEEK 65 Tablet 3 07/28/2022 Active Additional Information Patient taking differently: Using as needed, Reported on 05/22/2023 Atorvastatin Calcium 10 MG Oral Tablet (Lipitor)Indications :Dyslipidemia, goal LDL below 70 TAKE 1 TABLET BY MOUTH DAILY 90 Tablet 3 03/30/2023 Active Melatonin 1 MG Oral Tablet Chewable Take by mouth. 0 Activ e metFORMIN HCl 500 MG Oral Tablet (Glucophage) Take 1 Tablet by mouth 2 times a day with morning and evening meals. 0 05/20/2023 Active Metoprolol Succinate ER 50 MG Oral Tablet Extended Release 24 Hour (Toprol XL)Indications:Vitam in D deficiency,Screening for prostate cancer,Encounter for long-term (current) use of other medications Take 1 Tablet by mouth in the morning. 135 Tablet 3 05/22/2023 Active Pantoprazole Sodium 40 MG Oral Tablet Delayed Release (Protonix) Take 1 Tablet by mouth in the morning. 90 Tablet 3 05/22/2023 Active Warfarin Sodium 5 MG Oral Tablet (Coumadin)Indication s:PAF (paroxysmal atrial fibrillation) ([facility]),Anticoagulatio n management encounter,Anticoagul ant long-term use Take 1 Tablet by mouth every evening. 30 Tablet 5 05/22/2023 Active ProAir HFA 108 (90 Base) MCG/ACT Inhalation Aerosol SolutionIndications: COPD, group D, by GOLD 2017 classification ([facility]),SOB (shortness of breath) Inhale 2 Puffs by mouth every 6 hours as needed for Shortness of Breath or Wheezing. 18 g 3 07/03/2023 Active Spironolactone 25 MG Oral Tablet (Aldactone) TAKE ONE-HALF TABLET BY MOUTH IN THE MORNING 45 Tablet 3 10/05/2023 Active documented as of this encounter (statuses as of 10/27/2023) Active Problems Problem Noted Date Diagnosed Date Vitamin B deficiency 05/22/2023 Vitamin D deficiency 05/22/2023 Encounter for long-term (current) use of other m edications 05/22/2023 Screening for prostate cancer 05/22/2023 PAF (paroxysmal atrial fibrillation) 05/22/2023 Need for prophylactic vaccin ation and inoculation against influenza 05/22/2023 Anticoagulation management encounter 05/22/2023 Anticoagulant long-term use 05/22/2023 PHT (pulmonary hypertension) 05/16/2021 ILD (interstitial lung disease) 05/16/2021 Chronic respiratory failure with hypoxia 021 Chronic diastolic heart failure 05/16/2021 COPD, group D, by GOLD 2017 classification 02/25 Overview: Per COPD GOLD Classification Sebaceous adenoma 01/26/2019 Family history of ischemic heart disease 018 Dyslipidemia, goal LDL below 70 06/07/2018 Nonobstructive atherosclerosis of coronary arter y 06/07/2018 Ventricular ectopy 06/07/2018 Atrial ectopy 06/07/2018 HTN, goal below 140/90 12/04/2016 Hx of nonmelanoma skin cancer 06/13/2015 Overview: squamous cell carcinoma (L lateral forehead, L taoist 07/05), 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, R dorsal hand, R scalp 2018, L dorsal wrist 06/07), basal cell carcinoma (L forearm, L preauricular region 09/2019) AK (actinic keratosis) 05/24/2014 Overview: Efudex 04/2014 documented as of this encounter (statuses as of 10/27/2023) Resolved Problems Problem Noted Date Diagnosed Date Resolved Date 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 07/01/2019 09/28/2019 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 01/26/2019 09/28/2019 COPD, severe 06/07/2018 02/28/2021 Overview: Per COPD GOLD Classification SCC (squamous cell carcinoma), face 05/03/2014 06/13/2015 Overview: L lateral forehead documented as of this encounter (statuses as of 10/27/2023) Immunizations Name Administration Dates Next Due Seasonal Influenza, PF, 6 M & above, IM , (FluLaval or Fluzone) 06/07/2018 Seasonal Influenza, Quadrivalent Hd (Fluzone Hd) 05/22/2023 Seasonal Influenza, Trivalent, Adjuvanted, 65+ y rs 05/09/2020 documented as of this encounter Social History Tobacco Use Types Packs/Day Years Used Date Smoking Tobacco: Former Cigarettes Q uit: 1979 Smokeless Tobacco: Current Snuff Comments:A can a day Alcohol Use Standard Drinks/Week Comments No 0 (1 standard drink = 0.6 oz pur e alcohol) Sex and Gender Information Value Date Recorded Sex Assigned at Not on file Gender Identity Not on file Sexual Orientation Not on file Job Start Date Occupation Industry Not on file Not on file Not on file documented as of this encounter Miscellaneous Notes * Telephone Encounter - Francisco Lebron OSA - 10/27/2023 9:55 AM EDT Pt is scheduled for October 27 at 10:40 am. Pt's is aware. * Telephone Encounter - Sanjiv Slater OSA - 10/27/2023 8:54 AM EDT Harika MCLEAN placed a referral for patient to be seen [facility] by pulmonology. I am unable to schedule. Please contact patient to schedule. Thank you. documented in this encounter Plan of Treatment Upcoming Encounters Date Type Department Care Team (Late st Contact Info) Description 10/27/2023 5:30 PM EDT Anticoagulation Pharmacy, [address] [place] [id number] [place] [address] 10/28/2023 9:50 AM EDT Laboratory Lab Mobile Phlebotomy [facility] [address] [place] [address] [facility], [facility] Mobile Home Draw [address] [place] [address] 10/28/2023 10:40 AM EDT Office Visit Pulmonary Medicine, [facility] [address] [facility] [place] [address] Jack Desouza MD [address] [place] [address] 10/28/2023 5:30 PM EDT Anticoagulation Pharmacy, [address] [place] [address] [place] [address] Health Maintenance Due Date Last Done Comments Pneumococcal Vaccine: 65+ Years (1 of 2 - PCV) 1946 Depression Screening 1953 Albumin/Creatinine Ratio 1959 DTaP,Tdap,and Td Vaccines (1 - Tdap) 1960 Zoster Vaccines (1 of 2) 1991 *ADVANCE DIRECTIVE NOT ON FILE 05/13/2020 GFR 01/06/2023 01/06/2022, 03/2020, 05/02/2019, Additional history exists COVID-19 Vaccine (3 - 2022- season) 2023 10/12/2020, 09/14/2020 O2 ASSESSMENT COMPLETED IN PAST YEAR FOR COPD 05/12/2024 05/12/2023 Alpha-1 Antitrypsin Completed 05/09/2020 Influenza Vaccine (FLU shot) Completed 01/2023, 05/09/2020, 06/07/2018, Additional history exists GARDASIL-HPV IMMUNIZATION SERIES Aged Out No longer eligible based on patient's age to complete this topic Hepatitis B Aged Out No longer eligi ble based on patient's age to complete this topic MENINGOCOCCAL (MENACTRA/MENVEO) Aged Out No longer eligible based on patient's age to complete this topic documented as of this encounter Medical Devices Not on filedocumented as of this encounter Care Teams Shot Examiner Relationship Specialty Start Date End Date Arun Alexandre MD [address] [place] [address] PCP - General Family Medicine 05/17/18 documented as of this encounter
--- OUTSIDE RECORDS SUMMARY | 2023-10-30 12:07 | External Medical Summary | Summary of Care ---
Author Name Unknown Organization [facility] Address [address] [place] [address] Phone [phone] Care Team Providers Care Core Assembly Supervisor Name Role Phone Arun Alexandre MD Primary Care Provider [phone] Encounter Details Date Type Department Care Team (Late st Contact Info) Description 10/26/2023 Telephone Pharmacy, [address] [place] [address] [facility] [address] [place], [place] [id number] Allergies Active Allergy Reactions Criticality Noted Date Comments Isosorbide Nitrate 05/07/2021 Headache Pollen Other (Please comment) 01/17/2014 Runny nose, itchy eyes, nasal congestion documented as of this encounter (statuses as of 10/26/2023) Medications Medication Sig Dispensed Refills Start Date End Date Status CENTRUM SILVER PO TABS once daily 0 Active ASPIRIN 81 MG PO TABS once daily 0 Active Multiple Vitamins-Minerals (PRESERVISION/LUTEIN ) Capsule Take 2 Capsules by mouth in the morning. 0 Active oxygen GAS Use 2 L/min(Oxygen) as directed daily. 0 02/05/2016 Active Magnesium Oxide 400 MG CapsuleIndications:H TN, goal below 140/90,Atrial ectopy Take 1 Cap by mouth daily. 34 Cap 11 01/20/2017 Active dutasteride (AVODART) 0.5 MG Capsule Take 1 Capsule by mouth in the morning. 0 Active diphenhydrAMINE HCl (BENADRYL) 12.5 MG/5ML liquid Take 10 mL by mouth 4 times a day as needed for Rhinitis. 0 Active Fluticasone-Salmeter ol 250-50 MCG/DOSE Inhalation Aerosol Powder Breath Activated (Advair Diskus)Indications:C OPD, group D, by GOLD 2017 classification ([facility]) Inhale 1 Puff by mouth 2 times a day. 180 Each 3 05/16/2021 Active Spiriva Respimat 2.5 MCG/ACT Inhalation Aerosol SolutionIndications: COPD, group D, by GOLD 2017 classification ([facility]) Take 2 puffs once daily 12 g 3 05/16/2021 Active Montelukast Sodium 10 MG Oral Tablet (Singulair)Indicatio ns:COPD, group D, by GOLD 2017 classification ([facility]) Take 1 Tab by mouth every evening. 90 Tab 3 05/16/2021 Active Fluticasone Propionate 50 MCG/ACT Nasal Suspension (Flonase)Indications :COPD, group D, by GOLD 2017 classification ([facility]) Administer 2 Sprays into nostril daily. 16 [...] Tablet (Coumadin)Indication s:PAF (paroxysmal atrial fibrillation) ([facility]),Anticoagulatio n management encounter,Anticoagul ant long-term use Take 1 Tablet by mouth every evening. 30 Tablet 5 05/22/2023 Active ProAir HFA 108 (90 Base) MCG/ACT Inhalation Aerosol SolutionIndications: COPD, group D, by GOLD 2017 classification ([facility]),SOB (shortness of breath) Inhale 2 Puffs by mouth every 6 hours as needed for Shortness of Breath or Wheezing. 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), basal cell carcinoma (L forearm, L preauricular region 09/2019) AK (actinic keratosis) 05/24/2014 Overview: Efudex 04/2014 documented as of this encounter (statuses as of 10/26/2023) Resolved Problems Problem Noted Date Diagnosed Date Resolved Date 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 07/01/2019 09/28/2019 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 01/26/2019 09/28/2019 COPD, severe 06/07/2018 02/28/2021 Overview: Per COPD GOLD Classification SCC (squamous cell carcinoma), face 05/03/2014 06/13/2015 Overview: L lateral forehead documented as of this encounter (statuses as of 10/26/2023) Immunizations Name Administration Dates Next Due Seasonal Influenza, PF, 6 M & above, IM , (FluLaval or Fluzone) 06/07/2018 Seasonal Influenza, Quadrivalent Hd (Fluzone Hd) 05/22/2023 Seasonal Influenza, Trivalent, Adjuvanted, 65+ y rs 05/09/2020 documented as of this encounter Social History Tobacco Use Types Packs/Day Years Used Date Smoking Tobacco: Former Cigarettes 2 38 1 941 - 1978 Smokeless Tobacco: Current Snuff Comments:A can a [...] encounter Miscellaneous Notes * Telephone Encounter - Yanique Mccarthy [facility] - 10/26/2023 4:11 PM EDT Patient Phone Numbers Patient no showed appointment. Called and spoke with patient's spouse. States he had another appointment. Counseled on the need for adherence with his warfarin therapy and Anticoagulation Clinic appointments to help ensure the safety and efficacy of the medication regimen. Patient has cardiology appointment tomorrow. Lab appointment scheduled following visit. Call placedto follow up on result. Yanique Mccarthy [facility], PharmD Clinical Pharmacist - Religion Instructor Medication Therapy Disease Management Clinic 10/26/2023, 4:13 PM [phone] documented in this encounter Plan of Treatment Upcoming Encounters Date Type Department Care Team (Late st Contact Info) Description 10/27/2023 8:30 AM EDT Office Visit Cardiology, [facility] [address] [place] [address] Harika Álvarez CRNP [address] [place] [address] 10/27/2023 9:00 AM EDT Laboratory Laboratory, [address] [place] [id number] [facility] [address] [place] [address] 10/27/2023 5:30 PM EDT Anticoagulation Pharmacy, [address] [place] [phone] [place] [address] 10/28/2023 9:50 AM EDT Laboratory Lab Mobile Phlebotomy [facility] [address] [place] [address] [facility] Mobile Home Draw [address] [place], [place] [id number] 10/28/2023 5:30 PM EDT Anticoagulation Pharmacy, [address] [place] [address] [place] [address] Health Maintenance Due Date Last Done Comments [...] Not on filedocumented as of this encounter Visit Diagnoses Diagnosis PAF (paroxysmal atrial fibrillation) (HCC)- Primary Atrial fibrillation Anticoagulation management encounter Encounter for therapeutic drug monitoring Anticoagulant long-term use Long-term (current) use of 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s documented in this encounter Care Teams Core Assembly Supervisor Relationship Specialty Start Date End Date Arun Alexandre MD [address] [place] [address] PCP - General Family Medicine 05/17/18 documented as of this encounter
--- OUTSIDE RECORDS SUMMARY | 2023-10-30 12:07 | External Medical Summary | Summary of Care ---
Author Name Unknown Organization [facility] Address [address] [place] [address] Phone [phone] Care Team Providers Care Department Head Name Role Phone Arun Alexandre MD Primary Care Provider Reason for Visit * Reason Comments Dosage Adjustment In Person (Anticoag Cl inic) Encounter Details Date Type Department Care Team (Latest Contact Info) Description 10/28/2023 12:00 PM EDT Anticoagulation Pharmacy, [address] [place] [phone] [place] [address] PAF (paroxysmal atrial fibrillation) ([facility])*; Anticoagulation management encounter; Anticoagulant long-term use; jail current use of 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 therapy Allergies Active Allergy Reactions Criticality Noted Date Comments Isosorbide Nitrate 05/07/2021 Headache Pollen Other (Please comment) 01/17/2014 Runny nose, itchy eyes, nasal congestion documented as of this encounter (statuses as of 10/28/2023) Medications Medication Sig Dispensed Refills Start Date End Date Status CENTRUM SILVER PO TABS once daily 0 Active Multiple Vitamins-Minerals (PRESERVISION/LUTEIN ) Capsule Take 2 Capsules by mouth in the morning. 0 Active oxygen GAS Use 2 L/min(Oxygen) as directed in the morning. Using 5 LPM continuous. 0 02/05/2016 Active Magnesium Oxide 400 MG [...] a day. 180 Each 3 05/16/2021 Active Montelukast Sodium 10 MG [...] the morning. 0 Active D3 50 MCG (1999 UT) Oral Tablet (Cholecalciferol) Take 1 Tablet [...] THE MORNING 45 Tablet 3 10/05/2023 Active Ipratropium [place] 0.02 % Inhalation Solution (Atrovent) Inhale 2.5 mL via nebulizer every 6 hours as needed for Wheezing. 300 mL 0 10/28/2023 Active Albuterol Sulfate 0.63 MG/3ML Inhalation Nebulization Solution (Accuneb) Inhale 1 Vial via nebulizer every 6 hours as needed for Wheezing or Shortness of Breath. 360 mL 0 10/28/2023 Active predniSONE 5 MG Oral Tablet (Deltasone) Take 1 Tablet by mouth every morning with food, as instructed.. 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, R dorsal hand, R scalp 2018, L dorsal wrist 06/07), basal cell carcinoma (L forearm, L preauricular region 09/2019) AK (actinic keratosis) 05/24/2014 Overview: Efudex 04/2014 documented as of this encounter (statuses as of 10/28/2023) Resolved Problems Problem Noted Date Diagnosed Date Resolved Date 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 roman catholic 07/01/2019 09/28/2019 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 01/26/2019 09/28/2019 COPD, severe 06/07/2018 02/28/2021 Overview: Per COPD GOLD Classification SCC (squamous cell carcinoma), face 05/03/2014 06/13/2015 Overview: L lateral forehead documented as of this encounter (statuses as of 10/28/2023) Immunizations Name Administration Dates Next Due SARS-COV-2 (COVID-19) Vaccine Unspecified 2020,09/14/2020 Seasonal Influenza, PF, 6 M & above, IM , (FluLaval or Fluzone) 06/07/2018 Seasonal Influenza, Quadrivalent Hd (Fluzone Hd) 05/22/2023 Seasonal Influenza, Trivalent, Adjuvanted, 65+ y rs 05/09/2020 Seasonal Influenza, Trivalen t, High Dose, No Preserve, IM 05/05/2016 documented as of this encounter Social History [...] on file documented as of this encounter Progress Notes * Yanique Mccarthy RPh - 10/28/2023 12:37 PM EDT Patient initially scheduled for GML services today. Was to have INR drawn today, however patient was not at residency due to pulmonology appointment. Presented at clinic for OFS. Patient requesting to continue inperson OFS as opposed to GML services at this time. Yanique Mccarthy RPh, PharmD Clinical Pharmacist - Dredgemaster Medication Therapy Disease Management Clinic 10/28/2023, 12:41 PM [phone] * Yanique Mccarthy RPh - 10/28/2023 12:24 PM EDT Medication Therapy Disease Management - Anticoagulation Patient: Dru Galvan | : 1940 Subjective Patient-Reported Symptoms: Patient Findings Negatives: Signs/symptoms of thrombosis, Signs/symptoms of bleeding, Change in health, Change in alcohol use, Change in activity, Upcoming invasive procedure, Missed doses, Extra doses, Change in medications, Change in diet/appetite, Bruising Objective Current Warfarin Dose As of 10/28/2023 Warfarin maintenance plan: 5 mg (5 mg x 1) every Mon, Fri; 2.5 mg (5 mg x 0.5) all other days INR Result As of 10/28/2023 INR goal: 2.0-3.0 INR used for dosin.3 (10/28/2023) Assessment & Plan Warfarin Plan As of 10/28/2023 Full warfarin instructions: 5 mg every Mon, Fri; 2.5 mg all other days No change documented: Yanique Mccarhty RPh Next INR check: 11/11/2023 Repeat PT/INR in 2 week(s) Weekly dose: not changed Additional Dosing Information: Yanique Mccarthy RPh Clinical Pharmacist 10/28/2023, 12:24 PM documented in this encounter Plan of Treatment Upcoming Encounters Date Type Department Care Team (Late st Contact Info) Description 11/11/2023 2:30 PM EDT Anticoagulation Pharmacy, [address] [place] [address] [place] [address] 12/29/2023 10:20 AM EDT Office Visit Pulmonary Medicine, [facility] [address] [facility] [place] [id number] Jack Desouza MD [address] [place] [address] Health Maintenance Due Date Last Done Comments Pneumococcal Vaccine: 65+ Years (1 of 2 - PCV) 1946 Depression Screening 1953 Albumin/Creatinine Ratio 1959 DTaP,Tdap,and Td Vaccines (1 - Tdap) 1960 Zoster Vaccines (1 of 2) 1991 *ADVANCE DIRECTIVE NOT ON FILE 05/13/2020 GFR 01/06/2023 01/06/2022, 03/2020, 05/02/2019, Additional history exists COVID-19 Vaccine ( season) 2023 10/12/2020, 09/14/2020 O2 ASSESSMENT COMPLETED IN PAST YEAR FOR COPD 10/27/2024 10/28/2023 Alpha-1 Antitrypsin Completed 05/09/2020 Influenza Vaccine (FLU [...] Not on filedocumented as of this encounter Procedures Procedure Name Priority Date/Time Associated Diagnosis Comments INR FINGERSTICK, POINT OF CARE Routine 10/28/2023 12:33 PM EDT PAF (paroxysmal atrial fibrillation) (HCC) Anticoagulation management encounter Anticoagulant long-term use jail current use of 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 therapy documented in this encounter Results * INR FINGERSTICK, POINT OF CARE (10/28/2023 12:33 PM EDT) Fingerstick INR 2.3 INR 12:40 PM EDT [facility] Blood 10/28/2023 12:3 3 PM EDT 10/28/2023 12:40 PM EDT Narrative [facility] - 10/28/2023 12:40 PM EDT Therapeutic ranges for non-operative patients: Prophylaxsis/treatment of DVT: (Range:2.0-3.0) Treatment of pulmonary embolism:(Range:2.0-3.0) Prevention of systemic embolism from: -tissue heart valves -acute myocardial infarction -valvular heart disease -atrial fibrillation (Range: 2.0-3.0) Mechanical prosthetic valves: (Range: 2.5-3.5) [facility] Lombardi [facility] POINT OF CARE TEST DOCKED DEVICE UNSOLICITED RESULTS [facility] [place] [address] documented in this encounter Visit Diagnoses Diagnosis PAF (paroxysmal atrial fibrillation) (HCC)- Primary Atrial fibrillation Anticoagulation management encounter Encounter for therapeutic drug monitoring Anticoagulant long-term use Long-term (current) use of 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s exterminator termite current use of 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 therapy documented in this encounter Care Teams Department Head Relationship Specialty Start Date End Date Arun Alexandre MD [address] [place] [address] PCP - General Family Medicine 05/17/18 documented as of this encounter"
--- OUTSIDE RECORDS SUMMARY | 2023-10-30 12:07 | External Medical Summary | Summary of Care ---
Author Name Unknown Organization [facility] Address [address] [place] [address] Phone [phone] Care Team Providers Care Dianetic Counselor Name Role Phone Arun Alexandre MD Primary Care Provider [phone] Reason for Visit * Reason Comments Dosage Adjustment Via Phone (anticoag Cl inic) Encounter Details Date Type Department Care Team (Latest Contact Info) Description 10/23/2023 5:30 PM [facility] Anticoagulation Pharmacy, [address] [place] [address] [place] [address] PAF (paroxysmal atrial fibrillation) ([facility])*; Anticoagulation management encounter; Anticoagulant long-term use Allergies Active Allergy Reactions Criticality Noted Date Comments Isosorbide Nitrate 05/07/2021 Headache Pollen Other (Please comment) 01/17/2014 Runny nose, itchy eyes, nasal congestion documented as of this encounter (statuses as of 10/23/2023) Medications Medication Sig Dispensed Refills Start Date [...] OPD, group D, by GOLD 2017 classification ([facility]) Inhale 1 Puff by mouth 2 times a day. 180 Each 3 05/16/2021 Active Spiriva Respimat 2.5 MCG/ACT Inhalation Aerosol SolutionIndications: COPD, group D, by GOLD 2017 classification ([facility]) Take 2 puffs once daily 12 g 3 05/16/2021 Active Montelukast Sodium 10 MG Oral Tablet (Singulair)Indicatio ns:COPD, group D, by GOLD 2017 classification ([facility]) Take 1 Tab by mouth every evening. 90 Tab 3 05/16/2021 Active Fluticasone Propionate 50 MCG/ACT Nasal Suspension (Flonase)Indications :COPD, group D, by GOLD 2017 classification ([facility]) Administer 2 Sprays into nostril daily. 16 [...] Oral Tablet (Coumadin)Indication s:PAF (paroxysmal atrial fibrillation) ([facility]),Anticoagulatio n management encounter,Anticoagul ant long-term use Take 1 Tablet by mouth every evening. 30 Tablet 5 05/22/2023 Active ProAir HFA 108 (90 Base) MCG/ACT Inhalation Aerosol SolutionIndications: COPD, group D, by GOLD 2017 classification ([facility]),SOB (shortness of breath) Inhale 2 Puffs by mouth every 6 hours as needed for Shortness of Breath or Wheezing. 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, R dorsal hand, R scalp 2018, L dorsal wrist 06/07), basal cell carcinoma (L forearm, L preauricular region 09/2019) AK (actinic keratosis) 05/24/2014 Overview: Efudex 04/2014 documented as of this encounter (statuses as of 10/23/2023) Resolved Problems Problem Noted Date Diagnosed Date Resolved Date 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 rastafarian 07/01/2019 09/28/2019 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 01/26/2019 09/28/2019 COPD, severe 06/07/2018 02/28/2021 Overview: Per COPD GOLD Classification SCC (squamous cell carcinoma), face 05/03/2014 06/13/2015 Overview: L lateral forehead documented as of this encounter (statuses as of 10/23/2023) Immunizations Name Administration Dates Next Due Seasonal [...] Progress Notes * Yanique Mccarthy RPh - 10/23/2023 4:09 PM EST Medication Therapy Disease Management - Anticoagulation Patient: Dru Galvan | : 1940 Subjective Contacts Type Contact Phone/Fax 10/23/2023 04:08 PM EST Phone (Outgoing) Dru Galvan (Self) [phone] (M) Spoke to spouse, Jesusita Patient-Reported Symptoms: Objective Current Warfarin Dose As of 10/23/2023 Warfarin maintenance plan: 5 mg (5 mg x 1) every Mon, Fri; 2.5 mg (5 mg x 0.5) all other days INR Result As of 10/23/2023 INR goal: 2.0-3.0 INR used for dosing: No new INR available at time of encounter Assessment & Plan Warfarin Plan As of 10/23/2023 Full warfarin instructions: 5 mg every Mon, Fri; 2.5 mg all other days No change documented: Yanique Mccarthy RPh Next INR check: 10/26/2023 Repeat PT/INR in 3 day(s) Weekly dose: not changed Additional Dosing Information: Per patient's spouse, [facility]ML unable to obtain INR today as they were unable to get a sample from patient. Of note, we are currently working with patient's spouse to get PACE to transition back to DOAC tx. Reviewed if she qualifies, patient will as well. Reviewed importance of INR montioring while on warfarin. Previous INR was therapeutic. Agreeable tocome in for OFS on 10/25 as sample unable to be obtained via arm draw. Will continue current dosing until that time. Yanique Mccarthy RPh Clinical Pharmacist 10/23/2023, 4:09 PM * Clarita Gray, continuity tester - 10/23/2023 2:42 PM EST Pt was marked as a no show for today's GML appt. Please advise. Thank you, Clarita Gray Wire Brush Maker [facility] ([facility] (Formerly Tele[facility]) 10/23/2023, 2:42 PM documented in this encounter Plan of Treatment Upcoming Encounters Date Type Department Care Team (Late st Contact Info) Description 10/26/2023 4:00 PM EDT Anticoagulation Pharmacy, [address] [place] [address] [place] [address] 10/27/2023 8:30 AM EDT Office Visit Cardiology, [facility] [address] [place] [address] Harika Álvarez CRNP [address] [place] [address] 10/28/2023 9:50 AM EDT Laboratory Lab Mobile Phlebotomy [facility] [address] [place] [address] [facility] Draw [address] [place] [address] 10/28/2023 5:30 PM EDT Anticoagulation Pharmacy, [address] [place] [address] [place] [address] Health Maintenance Due Date Last Done Comments Pneumococcal Vaccine: 65+ Years (1 of 2 - PCV) 1946 Depression Screening 1953 Albumin/Creatinine Ratio 1959 DTaP,Tdap,and Td Vaccines (1 - Tdap) 1960 Zoster Vaccines (1 of 2) 1991 *ADVANCE DIRECTIVE NOT ON FILE 05/13/2020 GFR 01/06/2023 01/06/2022, 090 03/2020, 05/02/2019, Additional history exists COVID-19 Vaccine [...] 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s documented in this encounter Care Teams Dianetic Counselor Relationship Specialty Start Date End Date Arun Alexandre MD [address] [place] [address] PCP - General Family Medicine 05/17/18 documented as of this encounter"
--- OUTSIDE RECORDS SUMMARY | 2023-10-30 12:07 | External Medical Summary | Summary of Care ---
Author Name Unknown Organization [facility] Address [address] [place] [address] Phone [phone] Care Team Providers Care Spanish Instructor Name Role Phone Arun Alexandre MD Primary Care Provider + [phone] Reason for Visit * Reason Comments Follow Up * Evaluate & Treat - Unlimited Visits (Within 3 days (urgent)) - Authorized Specialty Diagnoses / Procedures Referred By Elvia roman Referred To Contact Pulmonary Diseases / Pulmonary Diagnoses COPD, group D, by GOLD 2017 classification (HCC) Chronic respiratory failure with hypoxia (HCC) Harika Álvarez CRNP [address] [facility] [address] Referral ID Status Reason Start Date Expiration Date Visits Requested Visits Authorized [id number] Authorized Specialty Services Required 10/27/[phone] Encounter Details Date Type Department Care Team (Late st Contact Info) Description 10/28/2023 10:40 AM EDT Office Visit [facility] [address] [facility] [address] Jack Desouza MD [address] [place] [phone] Chronic respiratory failure with hypoxia (HCC)* Allergies Active Allergy Reactions Criticality Noted Date Comments Isosorbide Nitrate 05/07/2021 Headache Pollen Other (Please comment) 01/17/2014 Runny nose, itchy eyes, nasal congestion documented as of this encounter (statuses as of 10/28/2023) Medications Medication Sig Dispensed Refills Start Date End Date Status CENTRUM SILVER PO TABS once daily 0 Active Multiple Vitamins-Minerals (PRESERVISION/LUTE IN) Capsule Take 2 Capsules by mouth in the morning. 0 Active oxygen GAS Use 2 L/min(Oxygen) as directed in the morning. Using 5 LPM continuous. 0 6 Active Magnesium Oxide 400 MG CapsuleIndications :HTN, goal below 140/90,Atrial ectopy Take 1 Cap by mouth daily. 34 Cap 11 7 Active Additional Information Patient not taking.Reported on 10/27/2023 dutasteride (AVODART) 0.5 MG Capsule Take 1 Capsule by mouth in the morning. 0 Active diphenhydrAMINE HCl (BENADRYL) 12.5 MG/5ML liquid Take 10 mL by mouth 4 times a day as needed for Rhinitis. 0 Active Fluticasone-Salmet rachael 250-50 MCG/DOSE Inhalation Aerosol Powder Breath Activated (Advair Diskus)Indications :COPD, group D, by GOLD 2017 classification ([facility]) Inhale 1 Puff by mouth 2 times a day. 180 Each 3 1 Active Montelukast Sodium 10 MG Oral Tablet (Singulair)Indicat ions:COPD, group D, by GOLD 2017 classification ([facility]) Take 1 Tab by mouth every evening. 90 Tab 3 1 Active Fluticasone Propionate 50 MCG/ACT Nasal Suspension (Flonase)Indicatio ns:COPD, group D, by GOLD 2017 classification ([facility]) Administer 2 Sprays into nostril daily. 16 g 3 1 Active Omeprazole 20 MG Oral Capsule Delayed Release (PriLOSEC)Indicati ons:Gastroesophage al reflux disease without esophagitis Take 1 Cap by mouth daily as needed for Heartburn. 90 Cap 3 1 Active guaiFENesin ER 600 MG Oral Tablet Extended Release 12 Hour Take 1 Tablet by mouth in the morning. 0 Active D3 50 MCG (1999 UT) Oral Tablet (Cholecalciferol) Take 1 Tablet by mouth in the morning. 25 mcg. 0 Active Mupirocin 2 % External Ointment (Bactroban) Apply to wound on left wrist daily 22 g 0 2 Active Additional Information Patient not taking.Reported on 10/14/2022 Furosemide 20 MG Oral Tablet (Lasix) TAKE 1 TABLET BY MOUTH DAILY 5 DAYS PER WEEK 65 Tablet 3 2 Active Additional Information Patient taking differently: Using as needed, Reported on 05/22/2023 Atorvastatin Calcium 10 MG Oral Tablet (Lipitor)Indicatio ns:Dyslipidemia, goal LDL below 70 TAKE 1 TABLET BY MOUTH DAILY 90 Tablet 3 3 Active Melatonin 1 MG Oral Tablet Chewable Take by mouth. 0 Active metFORMIN HCl 500 MG Oral Tablet (Glucophage) Take 1 Tablet by mouth 2 times a day with morning and evening meals. 0 3 Active Metoprolol Succinate ER 50 MG Oral Tablet Extended Release 24 Hour (Toprol XL)Indications:Vit pitts D deficiency,Screeni ng for prostate cancer,Encounter for long-term (current) use of other medications Take 1 Tablet by mouth in the morning. 135 Tablet 3 3 Active Pantoprazole Sodium 40 MG Oral Tablet Delayed Release (Protonix) Take 1 Tablet by mouth in the morning. 90 Tablet 3 3 Active Warfarin Sodium 5 MG Oral Tablet (Coumadin)Indicati ons:PAF (paroxysmal atrial fibrillation) ([facility]),Anticoagulat ion management encounter,Anticoag ulant long-term use Take 1 Tablet by mouth every evening. 30 Tablet 5 3 Active ProAir HFA 108 (90 Base) MCG/ACT Inhalation Aerosol SolutionIndication s:COPD, group D, by GOLD 2017 classification ([facility]),SOB (shortness of breath) Inhale 2 Puffs by mouth every 6 hours as needed for Shortness of Breath or Wheezing. 18 g 3 3 Active Spironolactone 25 MG Oral Tablet (Aldactone) TAKE ONE-HALF TABLET BY MOUTH IN THE MORNING 45 Tablet 3 4 Active Ipratropium [place] 0.02 % Inhalation Solution (Atrovent) Inhale 2.5 mL via nebulizer every 6 hours as needed for Wheezing. 300 mL 0 4 Active Albuterol Sulfate 0.63 MG/3ML Inhalation Nebulization Solution (Accuneb) Inhale 1 Vial via nebulizer every 6 hours as needed for Wheezing or Shortness of Breath. 360 mL 0 4 Active predniSONE 5 MG Oral Tablet (Deltasone) Take 1 Tablet by mouth every morning with food, as instructed.. 30 Tablet 2 4 024 Active Spiriva Respimat 2.5 MCG/ACT Inhalation Aerosol SolutionIndication s:COPD, group D, by GOLD 2017 classification ([facility]) Take 2 puffs once daily 12 g 3 1 024 Discontinued(Md dication List Clean Up) Albuterol Sulfate 0.63 MG/3ML Inhalation Nebulization Solution (Accuneb) Inhale 1 Vial via nebulizer every 6 hours as needed for Wheezing or Shortness of Breath. 360 mL 0 4 024 Discontinued Ipratropium [place] 0.02 % Inhalation Solution (Atrovent) Inhale 2.5 mL via nebulizer every 6 hours as needed for Wheezing. 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 07/01/2019 09/28/2019 Squamous cell carcinoma in s [...] Q uit: 1978 Smokeless Tobacco: Current Snuff Tobacco Cessation:Ready to Q uit: Not Asked; Counseling Given: Not Answered Comments:A can a day Alcohol Use Standard Drinks/Week Comments No 0 (1 standard drink = 0.6 oz pur e alcohol) Sex and Gender Information Value Date Recorded Sex Assigned at Not on file Gender Identity Not on file Sexual Orientation Not on file Job Start Date Occupation Industry Not on file Not on file Not on file documented as of this encounter Last Filed Vital Signs Vital Sign Reading Time Taken Comments Blood Pressure 106/58 10/28/2023 10:29 AM EDT Pulse 106 10/28/2023 10:29 AM EDT Temperature 36.4 C (97.5 F) 10/28/2023 1 0:29 AM EDT Respiratory Rate 22 10/28/2023 10:2 9 AM EDT Oxygen Saturation 93% 10/28/2023 10: 39 AM EDT O2 4LPM continuous flow, rest Inhaled Oxygen Concentration - - Weight 70.3 kg (155 lb) 10/28/2023 10:2 9 AM EDT Height 177.8 cm (5' 10") 10/28/2023 10: 29 AM EDT Body Mass Index 22.24 10/28/2023 10:29 AM EDT documented in this encounter Progress Notes * Jack Desouza MD - 10/28/2023 10:44 AM EDT 10/28/2023 Pulmonary Medicine, [address] [id number] Dru Galvan 1940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 Patient presents for follow-up pulmonary medicine evaluation. Severely limited exercise tolerance, patient was noted to be hypoxic on pulse dose oxygen therapy, switch to 5 L nasal cannula oxygen at rest to maintain adequate oxygen saturation. New prescription for continuous oxygen at 5 L nasal cannula was ordered. Current bronchodilator regimen includes DuoNeb nebulizer, Advair 250/50, Spiriva and rescue albuterol inhaler along with prednisone 10 mg daily as per post hospital discharge medications. Physical examination significant for cushingoid facies, compromised air entry, scattered rhonchi, no dullness, regular cardiac rhythm, trace lower extremity edema and nonlateralizing Neuro examination. Recent chest x-ray revealed advanced emphysematous changes along with hyperinflation and scattered reticular infiltrates without effusion Overall clinical picture consistent with multifactorial severe hypoxic respiratory failure with history of COPD, pulmonary hypertension, recent COVID viral illness. Bronchodilator therapy will be optimized continuing with Advair and rescue albuterol along with DuoNeb nebulizer therapy every 4 hours. Spiriva will be discontinued. Prednisone 5 mg daily will be continued as maintenance therapy due to high risk for recurrent exacerbation. Patient describes minimalexpectoration. Additional antibiotic therapies will be withheld at this point. Pulmonary clinic follow-up recommended in 2 months. Patient was advised to contact the office with any change in respiratory symptoms status. Data review: XR CHEST 2 VIEWS-10/27/2023 9:07 am HISTORY worsening DEUTSCH, Hx of COVID FINDINGS The cardiac silhouette is normal in size. Atherosclerotic calcifications of the thoracic aorta are again noted. There is severe pulmonary emphysema. There is biapical pleural/parenchymal scarring. Ill-defined bibasilar ground-glass opacities are noted. Moderate degenerative changes of the thoracic spine are noted. IMPRESSION Severe pulmonary emphysema. Ill-defined bibasilar ground-glass opacities are noted, may represent infection. Please also correlate clinically. PFT from 12/2020 per my interpretation spirometry with moderate obstruction. There is no significant bronchodilator response. Lung volumes with Air trapping. DLCO CT chest without contrast from 05/2020 per my interpretation there is biapical nodular pleural parenchymal scarring, left greater than right. There is centrilobular upper lung predominant emphysema. There is basilar pre referral predominant septal thickening reticulation. There is no pleural effusion. There is no pneumothorax. There is coronary artery and aortic calcifications. Chronic left rib fractures. PET scan from 06/2020 reviewed in PACS and agree with the radiology report showing no significant FDG activity in the chest. Echo from 04/2020: The left ventricular cavity size is normal. The LV wall thickness is mildly increased (concentric). The left ventricular wall motion is normal. The qualitative LV ejection fraction is 55-59% (normal). The left ventricular diastolic function is mildly abnormal (grade I). The right ventricular systolic function is normal as assessed by tricuspid annular plane systolic excursion (TAPSE) (normal >1.7 cm). The left atrium is normal sized. The right atrial size is normal. Mild aortic valve regurgitation is present. Mild tricuspid regurgitation is now present. Mild mitral regurgitation is present. The estimated pulmonary artery systolic pressure is 50mm Hg. 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 Follow Up: Return in about 2 months (around 12/28/2023) for Clinic Visit. | For: Clinic Visit | Check-out note: COPD Pulm HTN Recent Covid and Prolonged Hospitalization at [facility] Severe Hypoxia, 5 LPM Plan: DuoNeb Q 4 hrs 5 LPM Continuous oxygen therapy ordered C/w Prednisone 5 mg PO Daily Stop Spiriva/umeclidinium F/u 2 months Jack Desouza MD Subjective CC: Chief Complaint Patient presents with Follow Up HPI: Nursing Notes: Becca Merida LPN 10/28/23 1039 Addendum Pt is here for f/u COPD and ILD. Interm History/Respiratory Symptoms Cough: rare, clear phlegm Hemoptysis: no Sinus Symptoms: no Hospitalizations: [place] Aug and Sep, then rehab, for AECOPD and COVID ED Trips: see above Triggers: exertion Nocturnal: doesn't sleep well, denies sob at night CPAP/BiPAP/O2: O2 5LPM continuous Flu Vaccine: 2022 Pneumovax: yes, unsure of date Prevnar: yes, unsure of date COVID 19: x 2 [facility] Cat Question 10/28/2023 10:36 AM EDT - Filed by Becca Merida LPN When do you become breathless? (4) I am too breathless to leave the house or I am breathless when dressing How frequently do you cough? (1) Do you have phlegm in your chest? (1) Is your chest tight? (0) - My chest does not feel tight at all How breathless do you become when walking up a hill or steps? (5) - When I walk up a hill or one flight of stairs I am very breathless How limited are you doing activities at home? (5) - I am very limited doing activities at home How confident are you leaving home with your lung condition? (3) How soundly do you sleep? (2) How much energy do you have? (5) - I have no energy at all Total MMRC Score (range: 0 - 4) 4 Total CAT Score (range: 0 - 40) 22 Objective Filed Vitals: 10/28/23 1029 10/28/23 1032 10/28/23 1039 BP: 106/58 Pulse: 106 Resp: 22 Temp: 36.4 C (97.5 F) TempSrc: Tympanic SpO2: 80% 85% 93% Weight: 70.3 kg (155 lb) Height: 1.778 m (5' 10") Exam: Const: No signs of acute distress present. Head/Face: Normal on inspection. Eyes: Conjunctivae clear. Pupils equal round and reactive to light. ENMT: Oropharynx: No erythema, exudate or masses. Posterior pharynx is normal. Neck: Supple and symmetric. Resp: Respiratory examination as outlined above CV: Rate is regular. Rhythm is regular. No heart murmur appreciated. Extremities: No edema of the lower limbs bilaterally. Skin: Skin is warm and dry. Neuro: Coordination normal. No involuntary movement. Psych: Patient's attitude is cooperative. Mood is normal. Affect is normal. Tests reviewed with the patient: XR CHEST 2 VIEWS Result Date: 10/27/2023 IMPRESSION Severe pulmonary emphysema. Ill-defined bibasilar ground-glass opacities are noted, may represent infection. Please also correlate clinically. Available Radiologic data was reviewed by me in PACS. The images were shown to the patient and findings were discussed with the patient. HOME MEDICATIONS: Albuterol Sulfate 0.63 MG/3ML Inhalation Nebulization Solution (Accuneb) Ipratropium [place] 0.02 % Inhalation Solution (Atrovent) predniSONE 5 MG Oral Tablet (Deltasone) Spironolactone 25 MG Oral Tablet (Aldactone) ProAir HFA 108 (90 Base) MCG/ACT Inhalation Aerosol Solution Melatonin 1 MG Oral Tablet Chewable metFORMIN HCl 500 MG Oral Tablet (Glucophage) Metoprolol Succinate ER 50 MG Oral Tablet Extended Release 24 Hour (Toprol XL) Pantoprazole Sodium 40 MG Oral Tablet Delayed Release (Protonix) Warfarin Sodium 5 MG Oral Tablet (Coumadin) Atorvastatin Calcium 10 MG Oral Tablet (Lipitor) Furosemide 20 MG Oral Tablet (Lasix) guaiFENesin ER 600 MG Oral Tablet Extended Release 12 Hour Fluticasone Propionate 50 MCG/ACT Nasal Suspension (Flonase) Fluticasone-Salmeterol 250-50 MCG/DOSE Inhalation Aerosol Powder Breath Activated (Advair Diskus) Montelukast Sodium 10 MG Oral Tablet (Singulair) Omeprazole 20 MG Oral Capsule Delayed Release (PriLOSEC) dutasteride (AVODART) 0.5 MG Capsule Multiple Vitamins-Minerals (PRESERVISION/LUTEIN) Capsule oxygen GAS CENTRUM SILVER PO TABS Mupirocin 2 % External Ointment (Bactroban) D3 50 MCG (1999) Oral Tablet (Cholecalciferol) diphenhydrAMINE HCl (BENADRYL) 12.5 MG/5ML liquid Magnesium Oxide 400 MG Capsule ROS: No reported history of Hemoptysis, Hematemesis, Melena No reported history of Dysuria, Hematuria, Flank Pain No reported history of chronic headache, seizures No reported history of Fall or trauma . No reported history of recent change in weight or appetite. Past Medical History: Diagnosis Date COPD (chronic obstructive pulmonary disease) (HCC) ILD (interstitial lung disease) (HCC) Lung nodule Pulmonary arterial hypertension (HCC) No past surgical history on file. Social History Socioeconomic History Marital status: Occupational History Occupation: [employer] Comment: worked with [employer]; wasn't in the [employer] Tobacco Use Smoking status: Former Current packs/day: 0.00 Types: Cigarettes Quit date: 1978 Years since quittin.2 Smokeless tobacco: Current Types: Snuff Tobacco comments: A can a day Vaping Use Vaping Use: Never used Substance and Sexual Activity Alcohol use: No Drug use: No Social History Narrative No pets. No mold. Family History Problem Relation Age of Onset Heart Disorder Grandfather (Maternal) 80 ID Renal Hx Mother ESRD Breast Cancer Mother Other (Unknown) Father Cancer Sister (Half) neck Lung cancer Brother (Half) Review of patient's allergies indicates: Allergen Reactions Imdur [Isosorbide Nitrate] Headache Pollen Other (Please comment) Runny nose, itchy eyes, nasal congestion documented in this encounter Nursing Notes * Becca Merida LPN - 10/28/2023 10:24 AM EDT Pt is here for f/u COPD and ILD. Interm History/Respiratory Symptoms Cough: rare, clear phlegm Hemoptysis: no Sinus Symptoms: no Hospitalizations: [place] Aug and Sep, then rehab, for AECOPD and COVID ED Trips: see above Triggers: exertion Nocturnal: doesn't sleep well, denies sob at night CPAP/BiPAP/O2: O2 5LPM continuous Flu Vaccine: 2022 Pneumovax: yes, unsure of date Prevnar: yes, unsure of date COVID 19: x 2 [facility] Cat Question 10/28/2023 10:36 AM EDT - Filed by Becca Merida LPN When do you become breathless? (4) I am too breathless to leave the house or I am breathless when dressing How frequently do you cough? (1) Do you have phlegm in your chest? (1) Is your chest tight? (0) - My chest does not feel tight at all How breathless do you become when walking up a hill or steps? (5) - When I walk up a hill or one flight of stairs I am very breathless How limited are you doing activities at home? (5) - I am very limited doing activities at home How confident are you leaving home with your lung condition? (3) How soundly do you sleep? (2) How much energy do you have? (5) - I have no energy at all Total MMRC Score (range: 0 - 4) 4 Total CAT Score (range: 0 - 40) 22 documented in this encounter Plan of Treatment Upcoming Encounters Date Type Department Care Team (Late st Contact Info) Description 11/11/2023 2:30 PM EDT Anticoagulation Pharmacy, [address] [place] [address] [place] [address] 12/29/2023 10:20 AM EDT Office Visit Pulmonary Medicine, [facility] [address] [facility] [place] [address] Jack Desouza MD [address] [place] [phone] Health Maintenance Due Date Last Done Comments Pneumococcal Vaccine: 65+ Years (1 of 2 - PCV) 1946 Depression Screening 1953 Albumin/Creatinine Ratio 1959 DTaP,Tdap,and Td Vaccines (1 - Tdap) 1960 Zoster Vaccines (1 of 2) 1991 *ADVANCE DIRECTIVE NOT ON FILE 05/13/2020 GFR 01/06/2023 01/06/2022, 0903/2020, 05/02/2019, Additional history exists COVID-19 Vaccine ( - 2022- season) 2023 10/12/2020, 09/14/2020 O2 [...] as of this encounter Visit Diagnoses Diagnosis Chronic respiratory failure with hypoxia (HCC)- Primary Chronic respiratory failure documented in this encounter Care Teams Spanish Instructor Relationship Specialty Start Date End Date Arun Alexandre MD [address] [place] [address] PCP - General Family Medicine 05/17/18 documented as of this encounter
--- OUTSIDE RECORDS SUMMARY | 2023-10-30 12:07 | External Medical Summary | Summary of Care ---
Author Name Unknown Organization [facility] Address [address] [place] [address] Phone [phone] Care Team Providers Care Family Services Coordinator Name Role Phone Arun Alexandre MD Primary Care Provider [phone] Reason for Visit * Reason Onset Date Comments Test Results 10/27/2023 Unexpected or In determinate Result Encounter Details Date Type Department Care Team (Late st Contact Info) Description 10/27/2023 Telephone Radiology [address] [facility] [address] Harika Álvarez CRNP [address] [place] [address] Test Results ( Unexpected or Indeterminate... Allergies Active Allergy Reactions Criticality Noted Date [...] OPD, group D, by GOLD 2017 classification ([facility]) Inhale 1 Puff by mouth 2 times a day. 180 Each 3 05/16/2021 Active Spiriva Respimat 2.5 MCG/ACT Inhalation Aerosol SolutionIndications: COPD, group D, by GOLD 2017 classification ([facility]) Take 2 puffs once daily 12 g 3 05/16/2021 Active Montelukast Sodium 10 MG Oral Tablet (Singulair)Indicatio ns:COPD, group D, by GOLD 2017 classification ([facility]) Take 1 Tab by mouth every evening. 90 Tab 3 05/16/2021 Active Fluticasone Propionate 50 MCG/ACT Nasal Suspension (Flonase)Indications :COPD, group D, by GOLD 2017 classification ([facility]) Administer 2 Sprays into nostril [...] Oral Tablet (Coumadin)Indication s:PAF (paroxysmal atrial fibrillation) (HCC),Anticoagulatio n management encounter,Anticoagul ant long-term use Take 1 Tablet by mouth every evening. 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, R dorsal hand, R scalp 2018, L dorsal wrist 06/07), basal cell carcinoma (L forearm, L preauricular region 09/2019) AK (actinic keratosis) 05/24/2014 Overview: Efudex 04/2014 documented as of this encounter (statuses as of 10/28/2023) Resolved Problems Problem Noted Date Diagnosed Date Resolved Date 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 amish 07/01/2019 09/28/2019 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 Will fax results. CARIDAD Esquivel * Telephone Encounter - Brandy Richardson OSA - 10/27/2023 5:31 PM EDT Hello- The radiologist discovered an unexpected or indeterminate finding on Dru Galvan ([id number]) and asks that you review the following report. Study Type:XR CHEST 2 VIEWS Date of Study: 10/27/2023 IMPRESSION Severe pulmonary emphysema. Ill-defined bibasilar ground-glass opacities are noted, may represent infection. Please also correlate clinically. Please respond to this encounter to acknowledge receipt of this message and take responsibility to ensure this report is reviewed. Thank you, VITALY Giles Client Service Rep [facility] documented in this encounter Plan of Treatment Upcoming Encounters Date Type Department Care Team (Late st Contact Info) Description 10/28/2023 10:40 AM EDT Office Visit Pulmonary Medicine, [address] [place] [address] Jack Desouza MD [facility] [address] [facility] [place] [address] Arrived 10/28/2023 5:30 PM EDT Anticoagulation Pharmacy, [address] [place] [address] [place] [address] Health Maintenance Due Date Last Done Comments Pneumococcal Vaccine: 65+ Years (1 of 2 - PCV) 1946 Depression Screening 1953 Albumin/Creatinine Ratio 1959 DTaP,Tdap,and Td Vaccines (1 - Tdap) 1960 Zoster Vaccines (1 of 2) 1991 *ADVANCE DIRECTIVE NOT ON FILE 05/13/2020 GFR 01/06/2023 01/06/2022, 09/0 03/2020, 05/02/2019, Additional history exists COVID-19 Vaccine [...] filedocumented as of this encounter Care Teams Family Services Coordinator Relationship Specialty Start Date End Date Arun Alexandre MD [address] [place] [address] PCP - General Family Medicine 05/17/18 documented as of this encounter
--- OUTSIDE RECORDS SUMMARY | 2023-10-30 12:07 | External Medical Summary ---
Author Name Unknown Address Unknown Organization : Laboratory Report Ordering Provider Test Date Status YARIEL ALFORD 10/28/2023 12:33:16 Final Therapeutic ranges for non-o perative patients:
Prophylaxsis/treatment of DVT: (Range:2.0-3.0)
Treatment of pulmonary embolism:(Range:2.0-3.0)
Prevention of systemic embolism from:
-tissue heart valves
-acute myocardial infarction
-valvular heart disease
-atrial fibrillation
(Range: 2.0-3.0)
Mechanical prosthetic valves: (Range: 2.5-3.5) Observation Date Value Abnormality Reference (Units ) Status INR in Capillary blood by Coagulation assay 10/28/2023 12:33:16 2.3 (INR) Final Performing Location
--- OUTSIDE RECORDS SUMMARY | 2023-10-30 12:07 | External Medical Summary | Summary of Care ---
Author Name Unknown Organization [facility] Address [address] [place] [address] Phone [phone] Care Team Providers Care Chief Writer Name Role Phone Arun Alexandre MD Primary Care Provider [phone] Reason for Visit * Reason Onset Date Comments Test Results 10/27/2023 Unexpected or In determinate Result Encounter Details Date Type Department Care Team (Late st Contact Info) Description 10/27/2023 Telephone Rad[address] [facility] [place] [address] Harika Álvarez CRNP [address] [place] [address] Test Results ( Unexpected or Indeterminate... Allergies Active Allergy Reactions Criticality Noted Date Comments Isosorbide Nitrate 05/07/2021 Headache Pollen Other (Please comment) 01/17/2014 Runny nose, itchy eyes, nasal congestion documented as of this encounter (statuses as of 10/28/2023) Medications Medication Sig Dispensed Refills Start Date End Date Status CENTRUM SILVER PO TABS once daily 0 Active Multiple Vitamins-Minerals (PRESERVISION/LUTEI N) Capsule Take 2 Capsules by mouth in the morning. 0 Active oxygen GAS Use 2 L/min(Oxygen) as directed in the morning. Using 5 LPM continuous. 0 02/05/2016 Active Magnesium Oxide 400 MG CapsuleIndications: HTN, goal below 140/90,Atrial ectopy Take 1 Cap by mouth daily. 34 Cap 11 01/20/2017 Active Additional Information Patient not taking.Reported on 10/27/2023 dutasteride (AVODART) 0.5 MG Capsule Take 1 Capsule by mouth in the morning. 0 Active diphenhydrAMINE HCl (BENADRYL) 12.5 MG/5ML liquid Take 10 mL by mouth 4 times a day as needed for Rhinitis. 0 Active Fluticasone-Salmete rol 250-50 MCG/DOSE Inhalation Aerosol Powder Breath Activated (Advair Diskus)Indications: COPD, group D, by GOLD 2017 classification ([facility]) Inhale 1 Puff by mouth 2 times a day. 180 Each 3 05/16/2021 Active Montelukast Sodium 10 MG Oral Tablet (Singulair)Indicati ons:COPD, group D, by GOLD 2017 classification ([facility]) Take 1 Tab by mouth every evening. 90 Tab 3 05/16/2021 Active Fluticasone Propionate 50 MCG/ACT Nasal Suspension (Flonase)Indication s:COPD, group D, by GOLD 2017 classification ([facility]) Administer 2 Sprays into nostril daily. 16 g 3 05/16/2021 Active Omeprazole 20 MG Oral Capsule Delayed Release (PriLOSEC)Indicatio ns:Gastroesophageal reflux disease without esophagitis Take 1 Cap [...] 05/22/2023 Atorvastatin Calcium 10 MG Oral Tablet (Lipitor)Indication s:Dyslipidemia, goal LDL below 70 TAKE 1 TABLET BY MOUTH DAILY 90 Tablet 3 03/30/2023 Active Melatonin 1 MG Oral Tablet Chewable Take by mouth. 0 Activ e metFORMIN HCl 500 MG Oral Tablet (Glucophage) Take 1 Tablet by mouth 2 times a day with morning and evening meals. 0 05/20/2023 Active Metoprolol Succinate ER 50 MG Oral Tablet Extended Release 24 Hour (Toprol XL)Indications:Alva min D deficiency,Screenin g for prostate cancer,Encounter for long-term (current) use of other medications Take 1 Tablet by mouth in the morning. 135 Tablet 3 05/22/2023 Active Pantoprazole Sodium 40 MG Oral Tablet Delayed Release (Protonix) Take 1 Tablet by mouth in the morning. 90 Tablet 3 05/22/2023 Active Warfarin Sodium 5 MG Oral Tablet (Coumadin)Indicatio ns:PAF (paroxysmal atrial fibrillation) ([facility]),Anticoagulati on management encounter,Anticoagu lant long-term use Take 1 Tablet by mouth every evening. 30 Tablet 5 05/22/2023 Active ProAir HFA 108 (90 Base) MCG/ACT Inhalation Aerosol SolutionIndications :COPD, group D, by GOLD 2017 classification ([facility]),SOB (shortness of breath) Inhale 2 Puffs by mouth every 6 hours as needed for Shortness of Breath or Wheezing. 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 Will fax results. CARIDAD Esquivel * Telephone Encounter - Brandy Richardson OSA - 10/27/2023 5:31 PM EDT Hello- The radiologist discovered an unexpected or indeterminate finding on Dru Galvan ([id number]) and asks that you review the following report. Study Type:XR CHEST 2 VIEWS Date of Study: 10/27/2023 IMPRESSION Severe pulmonary emphysema. Ill-defined bibasilar ground-glass opacities are noted, may represent infection. Please also correlate clinically. Please respond to this encounter to acknowledge receipt of this message and take responsibility to ensure this report is reviewed. Thank you, VITALY Giles Client Service [facility] documented in this encounter Plan of Treatment Upcoming Encounters Date Type Department Care Team (Late st Contact Info) Description 10/28/2023 5:30 PM EDT Anticoagulation Pharmacy, [address] [place] [address] [place] [address] 12/29/2023 10:20 AM EDT Office Visit Pulmonary Medicine, [address] [place] [address] Jack Desouza MD [address] [place] [address] Health Maintenance Due Date Last Done Comments [...] filedocumented as of this encounter Care Teams Chief Writer Relationship Specialty Start Date End Date Arun Alexandre MD [address] [facility] [place] [address] PCP - General Family Medicine 05/17/18 documented as of this encounter
--- OUTSIDE RECORDS SUMMARY | 2023-10-30 12:07 | External Medical Summary | Summary of Care ---
Author Name Unknown Organization [facility] Address [address] [place] [address] Phone [phone] Care Team Providers Care Home Health Care Case Manager Name Role Phone Arun Alexandre MD Primary Care Provider [phone] Encounter Details Date Type Department Care Team (Late st Contact Info) Description 10/27/2023 Telephone Pharmacy, [address] [place] [address] [facility] [address] [place], [place] [id number] Allergies Active Allergy Reactions Criticality Noted Date [...] OPD, group D, by GOLD 2017 classification ([facility]) Inhale 1 Puff by mouth 2 times a day. 180 Each 3 05/16/2021 Active Spiriva Respimat 2.5 MCG/ACT Inhalation Aerosol SolutionIndications: COPD, group D, by GOLD 2017 classification ([facility]) Take 2 puffs once daily 12 g 3 05/16/2021 Active Montelukast Sodium 10 MG Oral Tablet (Singulair)Indicatio ns:COPD, group D, by GOLD 2017 classification ([facility]) Take 1 Tab by mouth every evening. 90 Tab 3 05/16/2021 Active Fluticasone Propionate 50 MCG/ACT Nasal Suspension (Flonase)Indications :COPD, group D, by GOLD 2017 classification ([facility]) Administer 2 Sprays into nostril [...] Oral Tablet (Coumadin)Indication s:PAF (paroxysmal atrial fibrillation) ([facility]),Anticoagulatio n management encounter,Anticoagul ant long-term use Take 1 Tablet by mouth every evening. 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 Scheduled for GML tomorrow. Called and spoke to spouse today to make aware, instructed to continue current dosing. Yanique Mccarthy RPh, PharmD Clinical Pharmacist - Branch Associate [facility] 10/27/2023, 4:51 PM [phone] documented in this encounter Plan of Treatment Upcoming Encounters Date Type Department Care Team (Late st Contact Info) Description 10/28/2023 9:50 AM EDT Laboratory Lab Mobile Phlebotomy [facility] [address] [place] [address] [facility] Mobile Home Draw [address] [place] [address] 10/28/2023 10:40 AM EDT Office Visit Pulmonary Medicine, [facility] [address] [facility] [place] [address] [facility] [address] [facility] [id number] 10/28/2023 5:30 PM EDT Anticoagulation Pharmacy, [address] [place] [address] [place] [address] Health Maintenance Due Date Last Done Comments Pneumococcal Vaccine: 65+ Years (1 of 2 - PCV) 1946 Depression Screening 1953 Albumin/Creatinine Ratio 1959 DTaP,Tdap,and Td Vaccines (1 - Tdap) 1960 Zoster Vaccines (1 of 2) 1991 *ADVANCE DIRECTIVE NOT ON FILE 05/13/2020 GFR 01/06/2023 01/06/2022, 03/2020, 05/02/2019, Additional history exists COVID-19 Vaccine (3 24 season) 2023 10/12/2020, 09/14/2020 O2 ASSESSMENT COMPLETED [...] 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s documented in this encounter Care Teams Home Health Care Case Manager Relationship Specialty Start Date End Date Arun Alexandre MD [address] [place] [address] PCP - General Family Medicine 05/17/18 documented as of this encounter
--- OUTSIDE RECORDS SUMMARY | 2023-10-30 12:07 | External Medical Summary | Summary of Care ---
Author Name Unknown Organization [facility] Address [address] [place] [address] Phone [phone] Care Team Providers Care Runner Man Name Role Phone Arun Alexandre MD Primary Care Provider + [phone] Reason for Referral * Evaluate & Treat - Unlimited Visits (Within 3 days (urgent)) - Authorized Specialty Diagnoses / Procedures Referred By Elvia roman Referred To Contact Pulmonary Diseases / Pulmonary Diagnoses COPD, group D, by GOLD 2017 classification ([facility]) Chronic respiratory failure with hypoxia (HCC) Harika Álvarez CRNP [address] [facility], [place] [address] Referral ID Status Reason Start Date Expiration Date Visits Requested Visits Authorized [id number] Authorized Specialty Services Required 10/27/2023 999 999 Question Answer Referral Priority Within 3 days (urgent) Where should this appointment be scheduled? [facility] Primary Reason for Referral? Asthma/COPD Comments IDL/COPD/emphysema Reason for Visit * Reason Comments Follow Up Encounter Details Date Type Department Care Team (Latest Contact Info) Description 10/27/2023 8:30 AM EDT Office Visit Cardiology, [facility] [address] [place] [address] Harika Álvarez CRNP [address] [place] [address] Coronary artery disease involving nuiqsut coronary artery of nuiqsut heart without angina pectoris*; PAF (paroxysmal atrial fibrillation) (HCC); HTN, goal below 130/80; Dyslipidemia, goal LDL below 70; COPD, group D, by GOLD 2017 classification ([facility]); Chronic respiratory failure with hypoxia ([facility]) Allergies Active Allergy Reactions Criticality Noted Date [...] Use 2 L/min(Oxygen) as directed daily. 0 6 Active Magnesium Oxide 400 MG CapsuleIndications: HTN, [...] COPD, group D, by GOLD 2017 classification ([facility]) Inhale 1 Puff by mouth 2 times a day. 180 Each 3 1 Active Spiriva Respimat 2.5 MCG/ACT Inhalation Aerosol SolutionIndications :COPD, group D, by GOLD 2017 classification ([facility]) Take 2 puffs once daily 12 g 3 1 Active Montelukast Sodium 10 MG Oral Tablet (Singulair)Indicati ons:COPD, group D, by GOLD 2017 classification ([facility]) Take 1 Tab by mouth every evening. 90 Tab 3 1 Active Fluticasone Propionate 50 MCG/ACT Nasal Suspension (Flonase)Indication s:COPD, group D, by GOLD 2017 classification ([facility]) Administer 2 Sprays into nostril [...] Oral Tablet (Coumadin)Indicatio ns:PAF (paroxysmal atrial fibrillation) ([facility]),Anticoagulati on management encounter,Anticoagu lant long-term use Take 1 Tablet by mouth every evening. 30 Tablet 5 3 Active ProAir HFA 108 (90 Base) MCG/ACT Inhalation Aerosol SolutionIndications :COPD, group D, by GOLD 2017 classification ([facility]),SOB (shortness of breath) Inhale 2 Puffs by mouth every 6 hours as needed for Shortness of Breath or Wheezing. 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, R dorsal hand, R scalp 2018, L dorsal wrist 06/07), basal cell carcinoma (L forearm, L preauricular region 09/2019) AK (actinic keratosis) 05/24/2014 Overview: Efudex 04/2014 documented as of this encounter (statuses as of 10/27/2023) Resolved Problems Problem Noted Date Diagnosed Date Resolved Date 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 yarsanism 07/01/2019 09/28/2019 Squamous cell carcinoma in s [...] Sign Reading Time Taken Comments Blood Pressure 110/62 10/27/2023 8:18 AM EDT Pulse 84 10/27/2023 8:18 AM EDT Temperature - - Respiratory Rate 14 10/27/2023 8:18 AM EDT Oxygen Saturation - - Inhaled Oxygen Concentration - - Weight 73.9 kg (163 lb) 10/27/2023 8:18 AM EDT Height - - Body Mass Index 23.39 05/16/2021 11:28 AM EDT documented in this encounter Progress Notes * Harika Álvarez CRNP - 10/27/2023 8:30 AM EDT Images from the original note were not included. Cardiology Outpatient Visit 10/27/2023 Primary Air Saw Operator: Dr. Lombardo Past medical history: Coronary atherosclerosis Cardiac catheterization on 05/11/2020 revealed heavily calcified, diffuse, moderate ostial to mid LAD disease that was borderline significant by FFR (0.80); medical management recommended. 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 Was last evaluated by Nils Webb PA-C approximately 3 months ago. Today the patient presents with a son. Was recently in [facility] for pneumonia in August, was discharged home to a rehab and then was diagnosed with COVID. Spent September [facility]. Unfortunately no records are available for review. Since then he has been very short of breath. Requiring increased amounts of oxygenation. Patient is requesting a pulmonary referral. He denies chest pain. No palpitations or lightheadedness. Has chronic orthopnea. No increased lower extremity edema. No fever, chills, cough, hematochezia, melena, or hemoptysis. Patient is compliant with all medications, and offers no side effects. Son notes that he had multiple CT scans and blood work done. Will obtain results. Current Outpatient Medications Medication Sig Dispense Refill CENTRUM SILVER PO TABS once daily Multiple Vitamins-Minerals (PRESERVISION/LUTEIN) Capsule Take 2 Capsules by mouth in the morning. oxygen GAS Use 2 L/min(Oxygen) as directed daily. dutasteride (AVODART) 0.5 MG Capsule Take 1 Capsule by mouth in the morning. Fluticasone-Salmeterol 250-50 MCG/DOSE Inhalation Aerosol Powder Breath Activated (Advair Diskus) Inhale 1 Puff by mouth 2 times a day. 180 Each 3 Spiriva Respimat 2.5 MCG/ACT Inhalation Aerosol Solution Take 2 puffs once daily 12 g 3 Montelukast Sodium 10 MG Oral Tablet (Singulair) Take 1 Tab by mouth every evening. 90 Tab 3 Fluticasone Propionate 50 MCG/ACT Nasal Suspension (Flonase) Administer 2 Sprays into nostril daily. 16 g 3 Omeprazole 20 MG Oral Capsule Delayed Release (PriLOSEC) Take 1 Cap by mouth daily as needed for Heartburn. 90 Cap 3 Furosemide 20 MG Oral Tablet (Lasix) TAKE 1 TABLET BY MOUTH DAILY 5 DAYS PER WEEK (Patient taking differently: Using as needed) 65 Tablet 3 Atorvastatin Calcium 10 MG Oral Tablet (Lipitor) TAKE 1 TABLET BY MOUTH DAILY 90 Tablet 3 Melatonin 1 MG Oral Tablet Chewable Take by mouth. metFORMIN HCl 500 MG Oral Tablet (Glucophage) Take 1 Tablet by mouth 2 times a day with morning andevening meals. Metoprolol Succinate ER 50 MG Oral Tablet Extended Release 24 Hour (Toprol XL) Take 1 Tablet by mouth in the morning. 135 Tablet 3 Pantoprazole Sodium 40 MG Oral Tablet Delayed Release (Protonix) Take 1 Tablet by mouth in the morning. 90 Tablet 3 Warfarin Sodium 5 MG Oral Tablet (Coumadin) Take 1 Tablet by mouth every evening. 30 Tablet 5 ProAir HFA 108 (90 Base) MCG/ACT Inhalation Aerosol Solution Inhale 2 Puffs by mouth every 6 hours as needed for Shortness of Breath or Wheezing. 18 g 3 Spironolactone 25 MG Oral Tablet (Aldactone) TAKE ONE-HALF TABLET BY MOUTH IN THE MORNING 45 Tablet3 Magnesium Oxide 400 MG Capsule Take 1 Cap by mouth daily. (Patient not taking: Reported on 10/27/2023) 34 Cap 11 diphenhydrAMINE HCl (BENADRYL) 12.5 MG/5ML liquid Take 10 mL by mouth 4 times a day as needed for Rhinitis. (Patient not taking: Reported on 10/27/2023) guaiFENesin ER 600 MG Oral Tablet Extended Release 12 Hour Take 1 Tablet by mouth in the morning. D3 50 MCG (2000 UT) Oral Tablet (Cholecalciferol) Take 1 Tablet by mouth in the morning. 25 mcg. (Patient not taking: Reported on 10/27/2023) Mupirocin 2 % External Ointment (Bactroban) Apply to wound on left wrist daily (Patient not taking:Reported on 10/14/2022) 22 g 0 No current facility-administered medications for this visit. Past Medical History: Diagnosis Date Lung nodule Pulmonary arterial hypertension (HCC) No past surgical history on file. Social History Tobacco Use Smoking status: Former Current packs/day: 0.00 Types: Cigarettes Quit date: 1978 Years since quittin.2 Smokeless tobacco: Current Types: Snuff Tobacco comments: A can a day Vaping Use Vaping Use: Never used Substance Use Topics Alcohol use: No Drug use: No Review of patient's allergies indicates: Allergen Reactions Imdur [Isosorbide Nitrate] Headache Pollen Other (Please comment) Runny nose, itchy eyes, nasal congestion Review of Systems: See HPI for pertinent positives. All others negative, other than those noted in HPI. Physical Exam: BP 110/62 | Pulse 84 | Resp 14 | Wt 73.9 kg (163 lb) | BMI 23.39 kg/m | BSA 1.91 m General: No acute distress. A+Ox3. HEENT: Normocephalic. Atraumatic. Conjunctiva and sclera clear. NECK: No carotid bruits. No JVD. Carotid upstrokes are brisk. Heart: RRR. S1 and S2 noted without murmur, rubs, gallops. Lungs: Diminished lung sounds. Abdomen: Normal bowel sounds. Soft. Nontender. No masses or organomegaly. No abdominal bruits. Extremities: No edema. No clubbing or cyanosis. Pulses: radial=2/4, posterior tibial=2/4, dorsalis pedis = 2/4. NEURO: No focal deficits. PSYCH: Normal. Lab data/imaging study review: Echo at [facility], 08/17/2023 April 09, 2023 TTE interpretation summary ([facility], Dr. Mcgrath): Compared to the study dated June 08, 2016, the estimated systolic pulmonary pressure has increased. EF 60 to 65%. Mild concentric LVH. Grade 1 diastolic dysfunction. Moderate aortic valve sclerosis without significant stenosis. Mild aortic regurgitation. Mild mitral and tricuspid regurgitation. Estimated PASP 46 mmHg. December 2021 Zio Monitor: Patient had a min HR of 56 bpm, max HR of 203 bpm, and avg HR of 87 bpm. Predominant underlying rhythm was Sinus Rhythm. 12 Ventricular Tachycardia runs occurred, the run with the fastest interval lasting 10.7 secs with a max rate of 203 bpm (avg 164 bpm); the run with the fastest interval was also the longest. 44 Supraventricular Tachycardia runs occurred, the run with the fastest interval lasting 20.6 secs with a max rate of 197 bpm (avg 170 bpm); the run with the fastest interval was also the longest. Isolated SVEs were rare (<1.0%), SVE Couplets were rare (<1.0%), and SVE Triplets were rare (<1.0%). Isolated VEs were frequent (5.9%, 97219), VE Couplets were rare (<1.0%, 2612), and VE Triplets were rare (<1.0%, 94). Ventricular Bigeminy and Trigeminy were present. No sustained arrhythmias. Frequent ventricular ectopy including 12 salvos of nonsustained ventricular tachycardia lasting up to 11 seconds. Occasional salvos of PSVT lasting upwards of21 seconds. No symptoms reported. May 11, 2020 Coronary Angiography ([facility], Dr. Lombardo): Right dominant coronary anatomy with moderate diffuse coronary atherosclerosis Left main: Normal caliber and length with mild distal calcification and 10% distal stenosis Left anterior descending: Type III vessel which gives rise to a moderate large diagonal branch and large septal branch in its proximal third and courses to terminate beyond the apex. Within the left anterior descending there is heavy calcification in its proximal portion with hazy narrowing of its origin. There is diffuse moderate narrowing of the proximal LAD and a 50% smooth narrowing in its midportion and mild luminal regularities otherwise Ramus intermedius: Large bifurcating vessel Left circumflex: Small nondominant vessel giving rise to a small obtuse marginal single posterior lateral branch. There is minimal luminal irregularities. Right coronary artery: Dominant vessel giving rise to a sinoatrial branch and a right ventricular branch in its proximal third, second right ventricular branch in its mid third and coursing to the apex. It gives rise to a moderate sized posterior descending artery and along the AV groove a bifurcating terminal posterior ventricular branch. Within the right coronary artery there is a smooth 40 to 50% narrowing in its midportion similar to prior study of 2016. The distal vessel has moderate irregularities with 30 to 40% within the AV groove Hemodynamics: Mild pulmonary hypertension PA pressure 40/16 with a mean of 24. No transaortic or transmitral valve gradients. No restrictive or constrictive phenomena. No significant increase in right heart pressures following LV angiography. Systolic hypertension without significant elevation in left heart pressures/LVEDP/pulmonary capillary wedge pressure. Cardiac output 3.9 L/min by thermal dilution. Cardiac index 2.0. PA saturation 67%, RA saturation 73% on 2 L nasal cannula Diagnostic cardiac catheterization performed by Dr. Lombardo at [facility] on February 20, 2016 demonstrated right-dominant coronary anatomy with moderate calcification of the ascending aorta and proximal coronary vessels. Moderate nonobstructive coronary artery disease of observed with 30% proximal and mid LAD stenosis, 50% narrowing within the diagonal branch, 50% narrowing in the subbranch of the ramus, and a 50% narrowing of the mid right coronary artery. Left ventricular systolicfunction was normal, EF 65%. Normal left heart pressures observed. No aortic or mitral valve disease noted. Mild pulmonary hypertension noted. Impression/Plan: This is a 83 year old male who is being evaluated in the cardiology office for ongoing care/risk management for the below diagnoses. 1. Coronary artery disease involving nuiqsut coronary artery of nuiqsut heart without angina pectoris -Cardiac catheterization on 05/11/2020 revealed heavily calcified, diffuse, moderate ostial to mid LAD disease that was borderline significant by FFR (0.80); medical management recommended. -stable, no angina 1. Continue aspirin 81 mg daily 2. PAF (paroxysmal atrial fibrillation) ([facility]) -History of paroxysmal atrial fibrillation, initially diagnosed 03/2023 at [facility] -[id number] score of 4 ( age 3, HTN, CAD) , on coumadin Continue metoprolol succinate 50 mg daily Continue Coumadin, INR goal between 2-3 3. HTN, goal below 130/80 -Well controlled. No medication changes needed at this time. Continue metoprolol and spironolactone as ordered. 4. Dyslipidemia, goal LDL below 70 1. Continue atorvastatin 10 mg daily 5. COPD, group D, by GOLD 2017 classification ([facility]) 6. Chronic respiratory failure with hypoxia ([facility]) -Chronic hypoxic respiratory failure, COPD/emphysema. -Recent COVID-19 and pneumonia. -Worsening dyspnea. Requires supplemental oxygen. Pulmonary referral placed for management. The patient agrees to the above plan and will call with additional questions or concerns. ER with all emergencies advised. Check-out note: Needs pulmonary appt IAM -- patient wants to see Pranay Corrigan if a sooner appt available. Please place back on the schedule with Nils In [place] January. Thanks. I spent a total of 40 minutes on the date of service in preparation, delivery, and documentation ofthe care provided to Dru Galvan excluding any time spent in the performance of separately billed services. CARIDAD [place], Department of Cardiology This chart was completed in part utilizing [employer] Speech Voice Recognition Software. Grammatical errors, random word insertions, prounoun errors, and incomplete sentences are an occasional consequence of this system due to software limitations, ambient noise, and hardware issues. Any formal questions or concerns about the content, text, or information contained within the body of this dictation should be directly addressed to the provider for clarification. documented in this encounter Nursing Notes * Almita Beasley LPN - 10/27/2023 8:17 AM EDT Examination Room: 4 Name: Dur Galvan Date of : 1940 Reason for Visit: Follow up hospital Problems/Concerns: SOB, walking short distances Interim Hosp(s): 2x since August, PNX then covid Chest Pain/SOB: Denies chest pain MyChart Discussed: ALREADY ACTIVE Patient was instructed to not get up on the exam table until directed and assisted by their provider; patient is to remain seated in the chair/ wheelchair/ exam table for fall prevention and safety reasons. Patient is aware staff will assist stepping down off exam table with personnel. documented in this encounter Plan of Treatment Upcoming Encounters Date Type Department Care Team (Late st Contact Info) Description 10/27/2023 5:30 PM EDT Anticoagulation Pharmacy, [address] [place] [address] [place] [address] 10/28/2023 9:50 AM EDT Laboratory Lab Mobile Phlebotomy [facility] [address] [place] [address] [facility] [place] Home Draw [address] [place] [address] 10/28/2023 5:30 PM EDT Anticoagulation Pharmacy, [address] [place] [address] [place] [address] Pending Results Name Type Priority Associated Diagnoses Date /Time XR CHEST 2 VIEWS Medical Imaging Routine Coronary artery disease involving nuiqsut coronary artery of nuiqsut heart without angina pectoris PAF (paroxysmal atrial fibrillation) (HCC) HTN, goal below 130/80 Dyslipidemia, goal LDL below 70 COPD, group D, by GOLD 2017 classification (HCC) Chronic respiratory failure with hypoxia (HCC) 10/27/2023 9:07 AM EDT Scheduled Referrals Name Type Priority Associated Diagnoses Orde r Schedule PULMONARY REFERRAL OP Referral Within 3 days (urgent) COPD, group D, by GOLD 2017 classification (HCC) Chronic respiratory failure with hypoxia (HCC) Ordered: 10/27/2023 Health Maintenance Due Date Last Done Comments Pneumococcal Vaccine: 65+ Years (1 of 2 - PCV) 1946 Depression Screening 1953 Albumin/Creatinine Ratio 1959 DTaP,Tdap,and Td Vaccines (1 - Tdap) 1960 Zoster Vaccines (1 of 2) 1991 *ADVANCE DIRECTIVE NOT ON FILE 05/13/2020 GFR 01/06/2023 01/06/2022, 03/2020, 05/02/2019, Additional history exists COVID-19 Vaccine (2022- season) 2023 10/12/2020, 09/14/2020 O2 ASSESSMENT COMPLETED [...] as of this encounter Visit Diagnoses Diagnosis Coronary artery disease involving nuiqsut coronary artery of nuiqsut heart without angina pectoris- Primary PAF (paroxysmal atrial fibrillation) (HCC) Atrial fibrillation HTN, goal below 130/80 Unspecified essential hypertension Dyslipidemia, goal LDL below 70 Other and unspecified hyperlipidemia COPD, group D, by GOLD 2017 classification (HCC) Chronic respiratory failure with hypoxia (HCC) Chronic respiratory failure documented in this encounter Care Teams Runner Man Relationship Specialty Start Date End Date Arun Alexandre MD [address] [place] [address] PCP - General Family Medicine 05/17/18 documented as of this encounter"
--- OUTSIDE RECORDS SUMMARY | 2023-10-30 12:07 | External Medical Summary | Summary of Care ---
Author Name Unknown Organization [facility] Address [address] [place] [address] Phone [phone] Care Team Providers Care Evaporative Cooler Installer Name Role Phone Arun Alexandre MD Primary Care Provider [phone] Reason for Visit * Reason Onset Date Comments Test Results 10/28/2023 Encounter Details Date Type Department Care Team (Late st Contact Info) Description 10/28/2023 Telephone Cardiology, [facility] [address] [facility] [address] Harika Álvarez CRNP [address] [facility] [place] [id number] Test Results Allergies Active Allergy Reactions Criticality Noted Date [...] D, by GOLD 2017 classification ([facility]) Inhale 1 Puff by mouth 2 times a day. 180 Each 3 05/16/2021 Active Montelukast Sodium 10 MG Oral Tablet (Singulair)Indicatio ns:COPD, group D, by GOLD 2017 classification ([facility]) Take 1 Tab by mouth every evening. 90 Tab 3 05/16/2021 Active Fluticasone Propionate 50 MCG/ACT Nasal Suspension (Flonase)Indications :COPD, group D, by GOLD 2017 classification ([facility]) Administer 2 Sprays into nostril daily. [...] (Coumadin)Indication s:PAF (paroxysmal atrial fibrillation) ([facility]),Anticoagulatio n management encounter,Anticoagul ant long-term use Take 1 Tablet by mouth every evening. 30 Tablet 5 05/22/2023 Active ProAir HFA 108 (90 Base) MCG/ACT Inhalation Aerosol SolutionIndications: COPD, group D, by GOLD 2017 classification ([facility]),SOB (shortness of breath) Inhale 2 Puffs by mouth every 6 hours as needed for Shortness of Breath or Wheezing. 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, R dorsal hand, R scalp 2018, L dorsal wrist 06/07), basal cell carcinoma (L forearm, L preauricular region 09/2019) AK (actinic keratosis) 05/24/2014 Overview: Efudex 04/2014 documented as of this encounter (statuses as of 10/28/2023) Resolved Problems Problem Noted Date Diagnosed Date Resolved Date 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 islam 07/01/2019 09/28/2019 Squamous cell carcinoma in s [...] encounter Miscellaneous Notes * Telephone Encounter - Erica Reyes CMA - 10/28/2023 12:04 PM EDT faxed * Telephone Encounter - Erica Reyes CMA - 10/28/2023 12:04 PM EDT ----- Message from CARIDAD Best sent at 10/28/2023 9:53 AM EDT ----- Patient is seeing [facility] pulmonary today. Can we please fax over results. documented in this encounter Plan of Treatment Upcoming Encounters Date Type Department Care Team (Late st Contact Info) Description 10/28/2023 5:30 PM EDT Anticoagulation Pharmacy, [address] [place] [address] [place] [address] 12/29/2023 10:20 AM EDT Office Visit Pulmonary Medicine, [address] [place] [address] Jack Desouza MD [address] [facility] [place] [address] Health Maintenance Due Date Last Done Comments [...] filedocumented as of this encounter Care Teams Evaporative Cooler Installer Relationship Specialty Start Date End Date Arun Alexandre MD [address] [place] [address] PCP - General Family Medicine 05/17/18 documented as of this encounter
--- OUTSIDE RECORDS SUMMARY | 2023-10-30 12:07 | External Medical Summary | Summary of Care ---
Author Name Unknown Organization [facility] Address [address] [place] [id number] Phone [phone] Care Team Providers Care Rag Baler Name Role Phone Arun Alexandre MD Primary Care Provider [phone] Reason for Referral * Ancillary Services (Within 3 days (urgent)) - Authorized Specialty Diagnoses / Procedures Referred By Contbonilla t Referred To Contact Livestock Caretaker Diagnoses PAF (paroxysmal atrial fibrillation) (HCC) Anticoagulation management encounter [facility] [address] [place] [address] Referral ID Status Reason Start Date Expiration Date Visits Requested Visits Authorized [id number] Authorized Ancillary Services Required 10/22/2023 999 999 Question Answer Referral Priority Within 3 days (urgent) Where should this appointment be scheduled? Anibal Comments Is Patient homebound? Yes All sections of this form must be filled out completely. Forms with missing or illegible information will be returned for completion. This form should not be modified in any way. Forms that have been modified will be returned. This form may not be submitted by a home health agency. It must be complete and submitted by the ordering provider. One full business day lead time is required and service will be scheduled based on the next service day for the [facility] Home Phlebotomy does not service every geographical location on a daily basis. Contact [facility] Client Services at to find out service days for a specific location. Medical Laboratory [address] [place] [id number] Tylor Limon M.D. Director and Network Communications Engineer Patient Name: Dru Galvan : 1940 Sex: male Address [address] [address] Provider: Yanique Mccarthy [facility]? Arun Alexandre MD? Diagnosis: I48.0 PAF (paroxysmal atrial fibrillation) ([facility]) (primary encounter diagnosis) Z51.81,Z79.01 Anticoagulation management encounter Z79.01 Anticoagulant long-term use Tests Requested PT/INR - as needed starting October 23, 2023 Reason for Visit * Reason Comments Dosage Adjustment Via Phone (anticoag Cl inic) Encounter Details Date Type Department Care Team (Latest Contact Info) Description 10/22/2023 5:10 PM EST Anticoagulation Pharmacy, [address] [place] [address] [place] [address] PAF (paroxysmal atrial fibrillation) ([facility])*; Anticoagulation management encounter; Anticoagulant long-term use Allergies Active Allergy Reactions Criticality Noted Date Comments Isosorbide Nitrate 05/07/2021 Headache Pollen Other (Please comment) 01/17/2014 Runny nose, itchy eyes, nasal congestion documented as of this encounter (statuses as of 10/22/2023) Medications Medication Sig Dispensed Refills Start Date [...] OPD, group D, by GOLD 2017 classification ([facility]) Inhale 1 Puff by mouth 2 times a day. 180 Each 3 05/16/2021 Active Spiriva Respimat 2.5 MCG/ACT Inhalation Aerosol SolutionIndications: COPD, group D, by GOLD 2017 classification ([facility]) Take 2 puffs once daily 12 g 3 05/16/2021 Active Montelukast Sodium 10 MG Oral Tablet (Singulair)Indicatio ns:COPD, group D, by GOLD 2017 classification ([facility]) Take 1 Tab by mouth every evening. 90 Tab 3 05/16/2021 Active Fluticasone Propionate 50 MCG/ACT Nasal Suspension (Flonase)Indications :COPD, group D, by GOLD 2017 classification ([facility]) Administer 2 Sprays into nostril [...] Oral Tablet (Coumadin)Indication s:PAF (paroxysmal atrial fibrillation) ([facility]),Anticoagulatio n management encounter,Anticoagul ant long-term use Take 1 Tablet by mouth every evening. 30 Tablet 5 05/22/2023 Active ProAir HFA 108 (90 Base) MCG/ACT Inhalation Aerosol SolutionIndications: COPD, group D, by GOLD 2017 classification ([facility]),SOB (shortness of breath) Inhale 2 Puffs by mouth every 6 hours as needed for Shortness of Breath or Wheezing. 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), basal cell carcinoma (L forearm, L preauricular region 09/2019) AK (actinic keratosis) 05/24/2014 Overview: Efudex 04/2014 documented as of this encounter (statuses as of 10/22/2023) Resolved Problems Problem Noted Date Diagnosed Date Resolved Date 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 ([phone]). Transferred to [facility], reports Warfarin dosing has remained the same since last [facility] visit. (5 mg every Mon, Fri; 2.5 mg all other days) Last INR --> 2/26 (2.03) 9:23 AM - Attempted to contact both patient and spouse, no answer. Unable to LM 1:08 PM - Called and spoke with spouse. Reviewed inpatient dosing instructions. GML is scheduled tocome draw her INR tomorrow, 10/22. Will plan to route to hopefully draw patient's at that time as well. Yanique Mccarthy RP, PharmD Clinical Pharmacist - Blending Kettle Tender Medication Therapy Disease Management [facility] 10/22/2023, 1:15 PM [phone], documented in this encounter Plan of Treatment Upcoming Encounters Date Type Department Care Team (Late st Contact Info) Description 10/23/2023 5:30 PM EST Anticoagulation Pharmacy, [address] [place] [address] [place] [address] 10/27/2023 8:30 AM EDT Office Visit Cardiology, [facility] [address] [place] [address] Harika Álvarez CRNP [address] [place] [address] Scheduled Referrals Name Type Priority Associated Diagnoses Orde r Schedule HOME PHLEBOTOMY REFERRAL OP Referral Within 3 days (urgent) PAF (paroxysmal atrial fibrillation) (HCC) Anticoagulation management encounter Anticoagulant long-term use Ordered: 10/22/2023 Health Maintenance Due Date Last Done Comments Pneumococcal Vaccine: 65+ Years (1 of 2 - PCV) 1946 Depression Screening 1953 Albumin/Creatinine Ratio 1959 DTaP,Tdap,and Td Vaccines (1 - Tdap) 1960 Zoster Vaccines (1 of 2) 1991 *ADVANCE DIRECTIVE NOT ON FILE 05/13/2020 GFR 01/06/2023 01/06/2022, 03/2020, 05/02/2019, Additional history exists COVID-19 Vaccine (3 - season) 2023 10/12/2020, 09/14/2020 O2 ASSESSMENT COMPLETED [...] Procedure Name Priority Date/Time Associated Diagnosis Comments OUTSIDE LAB-PT/INR Routine 10/12/2023 documented in this encounter Results * OUTSIDE LAB-PT/INR (10/12/2023) INR-OUTSIDE LAB 2.03 10/12/2023 Narrative Resulting Agency Comment Per [facility] History Per Patient LABORATORY documented in this encounter Visit Diagnoses Diagnosis PAF (paroxysmal atrial fibrillation) (HCC)- Primary Atrial fibrillation Anticoagulation management encounter Encounter for therapeutic drug monitoring Anticoagulant long-term use Long-term (current) use of 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s documented in this encounter Care Teams Rag Baler Relationship Specialty Start Date End Date Arun Alexandre MD [address] [place] [address] PCP - General Family Medicine 05/17/18 documented as of this encounter
--- OUTSIDE RECORDS SUMMARY | 2023-10-30 12:08 | External Medical Summary | Summary of Care ---
Author Name Unknown Organization [facility] Address [address] [place] [address] Phone [phone] Care Team Providers Care Stave Log Ripsaw Operator Name Role Phone Arun Alexandre MD Primary Care Provider [phone] Reason for Visit * Reason Comments Dosage Adjustment Via Phone (anticoag Cl inic) Encounter Details Date Type Department Care Team (Latest Contact Info) Description 10/01/2023 5:10 PM [facility] Anticoagulation Pharmacy, [address] [place] [address] [place] [address] PAF (paroxysmal atrial fibrillation) ([facility]; Anticoagulation management encounter; Anticoagulant long-term use Allergies Active Allergy Reactions Criticality Noted Date Comments Isosorbide Nitrate 05/07/2021 Headache Pollen Other (Please comment) 01/17/2014 Runny nose, itchy eyes, nasal congestion documented as of this encounter (statuses as of 10/01/2023) Medications Medication Sig Dispensed Refills Start Date [...] OPD, group D, by GOLD 2017 classification ([facility]) Inhale 1 Puff by mouth 2 times a day. 180 Each 3 05/16/2021 Active Spiriva Respimat 2.5 MCG/ACT Inhalation Aerosol SolutionIndications: COPD, group D, by GOLD 2017 classification ([facility]) Take 2 puffs once daily 12 g 3 05/16/2021 Active Montelukast Sodium 10 MG Oral Tablet (Singulair)Indicatio ns:COPD, group D, by GOLD 2017 classification ([facility]) Take 1 Tab by mouth every evening. 90 Tab 3 05/16/2021 Active Fluticasone Propionate 50 MCG/ACT Nasal Suspension (Flonase)Indications :COPD, group D, by GOLD 2017 classification ([facility]) Administer 2 Sprays into nostril daily. 16 [...] differently: Using as needed, Reported on 05/22/2023 Spironolactone 25 MG Oral Tablet (Aldactone) TAKE ONE-HALF TABLET BY MOUTH IN THE MORNING 45 Tablet 3 08/29/2022 Active Atorvastatin Calcium 10 MG Oral Tablet (Lipitor)Indications [...] COPD, group D, by GOLD 2017 classification ([facility]),SOB (shortness of breath) Inhale 2 Puffs by mouth every 6 hours as needed for Shortness of Breath or Wheezing. 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), basal cell carcinoma (L forearm, L preauricular region 09/2019) AK (actinic keratosis) 05/24/2014 Overview: Efudex 04/2014 documented as of this encounter (statuses as of 10/01/2023) Resolved Problems Problem Noted Date Diagnosed Date Resolved Date 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 restorationism 07/01/2019 09/28/2019 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 01/26/2019 09/28/2019 COPD, severe 06/07/2018 02/28/2021 Overview: Per COPD GOLD Classification SCC (squamous cell carcinoma), face 05/03/2014 06/13/2015 Overview: L lateral forehead documented as of this encounter (statuses as of 10/01/2023) Immunizations Name Administration Dates Next Due Seasonal Influenza, PF, 6 M & above, IM , (FluLaval or Fluzone) 06/07/2018 Seasonal Influenza, Quadrivalent Hd (Fluzone Hd) 05/22/2023 Seasonal Influenza, Trivalent, Adjuvanted, 65+ y rs 05/09/2020 documented as of this encounter Social History Tobacco Use Types Packs/Day Years Used Date Smoking Tobacco: Former Cigarettes 2 38 Q uit: 1979 Smokeless Tobacco: Current Snuff [...] Progress Notes * Yanique Mccarthy RPh - 10/01/2023 8:29 AM EST Patient Phone Numbers Called and spoke with [facility] ([phone]). Remains under their care at this time. Call placed to f/u x1 week. Yanique Mccarthy RPh, PharmD Clinical Pharmacist - Mine Foreman Medication Therapy Disease Management Clinic 10/01/2023, 8:34 AM [phone] documented in this encounter Plan of Treatment Upcoming Encounters Date Type Department Care Team (Late st Contact Info) Description 10/08/2023 5:10 PM EST Anticoagulation Pharmacy, [address] [place] [phone] [place] [address] 02/02/2024 3:30 PM EDT Office Visit Cardiology [address] [place] [address] Nils Webb PA-C [address] [place] [address] Health Maintenance Due Date Last Done Comments Pneumococcal Vaccine: 65+ Years (1 - PCV) 1946 Depression Screening 1953 Albumin/Creatinine Ratio 1959 DTaP,Tdap,and Td Vaccines (1 - Tdap) 1960 Zoster Vaccines (1 of 2) 1991 *ADVANCE DIRECTIVE NOT ON FILE 05/13/2020 GFR 01/06/2023 01/06/2022, 090 03/2020, 05/02/2019, Additional history exists COVID-19 Vaccine ( - season) 2023 10/12/2020, 09/14/2020 O2 ASSESSMENT [...] 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s documented in this encounter Care Teams Stave Log Ripsaw Operator Relationship Specialty Start Date End Date Arun Alexandre MD [address] [place] [address] PCP - General Family Medicine 05/17/18 documented as of this encounter
--- OUTSIDE RECORDS SUMMARY | 2023-10-30 12:08 | External Medical Summary | Summary of Care ---
Author Name Unknown Organization [facility] Address [address] [place] [address] Phone [phone] Care Team Providers Care Nurse Anesthetist Name Role Phone Arun Alexandre MD Primary Care Provider Reason for Visit * Reason Comments Dosage Adjustment Via Phone (anticoag Cl inic) Hospital Follow-Up Encounter Details Date Type Department Care Team (Latest Contact Info) Description 09/25/2023 5:10 PM [facility] Anticoagulation Pharmacy, [address] [place] [address] [place] [address] PAF (paroxysmal atrial fibrillation) ([facility])*; Anticoagulation management encounter; Anticoagulant long-term use Allergies Active Allergy Reactions Criticality Noted Date Comments Isosorbide Nitrate 05/07/2021 Headache Pollen Other (Please comment) 01/17/2014 Runny nose, itchy eyes, nasal congestion documented as of this encounter (statuses as of 09/25/2023) Medications Medication Sig Dispensed Refills Start Date [...] OPD, group D, by GOLD 2017 classification ([facility]) Inhale 1 Puff by mouth 2 times a day. 180 Each 3 05/16/2021 Active Spiriva Respimat 2.5 MCG/ACT Inhalation Aerosol SolutionIndications: COPD, group D, by GOLD 2017 classification ([facility]) Take 2 puffs once daily 12 g 3 05/16/2021 Active Montelukast Sodium 10 MG Oral Tablet (Singulair)Indicatio ns:COPD, group D, by GOLD 2017 classification ([facility]) Take 1 Tab by mouth every evening. 90 Tab 3 05/16/2021 Active Fluticasone Propionate 50 MCG/ACT Nasal Suspension (Flonase)Indications :COPD, group D, by GOLD 2017 classification ([facility]) Administer 2 Sprays into nostril daily. [...] COPD, group D, by GOLD 2017 classification ([facility]),SOB (shortness of breath) Inhale 2 Puffs by mouth every 6 hours as needed for Shortness of Breath or Wheezing. 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/07), basal cell carcinoma (L forearm, L preauricular region 09/2019) AK (actinic keratosis) 05/24/2014 Overview: Efudex 04/2014 documented as of this encounter (statuses as of 09/25/2023) Resolved Problems Problem Noted Date Diagnosed Date Resolved Date 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 muslim 07/01/2019 09/28/2019 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 Called and spoke to spouse, patient transferred back to [facility] ([phone]). Called and spoke to [facility] --> Confirmed patient is under their care. Warfarin managed in-house. Call placed to f/u for discharge next week. Yanique Mccarthy RP, PharmD Clinical Pharmacist - Integration Specialist Medication Therapy Disease Management Clinic 09/25/2023, 8:23 AM [phone] documented in this encounter Plan of Treatment Upcoming Encounters Date Type Department Care Team (Late st Contact Info) Description 10/01/2023 5:10 PM EST Anticoagulation Pharmacy, [address] [place] [address] [place] [address] 02/02/2024 3:30 PM EDT Office Visit Cardiology [address] [place] [address] Nils Webb PA-C [address] [place] [address] Health Maintenance Due Date Last Done Comments [...] 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s documented in this encounter Care Teams Nurse Anesthetist Relationship Specialty Start Date End Date Arun Alexandre MD [address] [place] [address] PCP - General Family Medicine 05/17/18 documented as of this encounter
--- OUTSIDE RECORDS SUMMARY | 2023-10-30 12:08 | External Medical Summary | Summary of Care ---
Author Name Unknown Organization [facility] Address [address] [place] [address] Phone [phone] Care Team Providers Care Vp Patient Name Role Phone Arun Alexandre MD Primary Care Provider [phone] Reason for Visit * Reason Comments Dosage Adjustment Via Phone (anticoag Cl inic) Encounter Details Date Type Department Care Team (Latest Contact Info) Description 10/15/2023 5:[address] [facility] Anticoagulation Pharmacy, [address] [place] [address] [place] [address] PAF (paroxysmal atrial fibrillation) ([facility])*; Anticoagulation management encounter; Anticoagulant long-term use Allergies Active Allergy Reactions Criticality Noted Date Comments Isosorbide Nitrate 05/07/2021 Headache Pollen Other (Please comment) 01/17/2014 Runny nose, itchy eyes, nasal congestion documented as of this encounter (statuses as of 10/15/2023) Medications Medication Sig Dispensed Refills Start Date [...] classification ([facility]) Take 2 puffs once daily 12 [...] as of this encounter (statuses as of 10/15/2023) Active Problems Problem Noted Date Diagnosed Date [...] squamous cell carcinoma (L lateral forehead, L orthodox 07/05), 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, R dorsal hand, R scalp 2018, L dorsal wrist 06/07), basal cell carcinoma (L forearm, L preauricular region 09/2019) AK (actinic keratosis) 05/24/2014 Overview: Efudex 04/2014 documented as of this encounter (statuses as of 10/15/2023) Resolved Problems Problem Noted Date Diagnosed Date Resolved Date 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 orthodox 07/01/2019 09/28/2019 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 Remains under their care at this time. Call placed to f/u x1 week. Yanique Mccarthy RPh, PharmD Clinical Pharmacist - Box Bender Medication Therapy Disease Management Clinic 10/15/2023, 10:47 AM [phone] documented in this encounter Plan of Treatment Upcoming Encounters Date Type Department Care Team (Late st Contact Info) Description 10/22/2023 5:10 PM EST Anticoagulation Pharmacy, [address] [place] [address] [place] [address] 10/27/2023 8:30 AM EDT Office Visit Cardiology, [facility] [address] [place] [address] Harika Álvarez CRNP [address] [place] [address] Health Maintenance Due Date Last Done Comments [...] 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s documented in this encounter Care Teams Vp Patient Relationship Specialty Start Date End Date Arun Alexandre MD [address] [place], [place] [id number] PCP - General Family Medicine 05/17/18 documented as of this encounter
--- OUTSIDE RECORDS SUMMARY | 2023-10-30 12:08 | External Medical Summary | Summary of Care ---
Author Name Unknown Organization [facility] Address [address] [place] [address] Phone [phone] Care Team Providers Care Electroslag Welding Machine Operator Name Role Phone Arun Alexandre MD Primary Care Provider [phone] Reason for Visit * Reason Comments Dosage Adjustment Via Phone (anticoag Cl inic) Encounter Details Date Type Department Care Team (Latest Contact Info) Description 09/23/2023 5:[address] [facility] Anticoagulation Pharmacy, [address] [place] [address] [place] [address] PAF (paroxysmal atrial fibrillation) ([facility])*; Anticoagulation management encounter; Anticoagulant long-term use Allergies Active Allergy Reactions Criticality Noted Date Comments Isosorbide Nitrate 05/07/2021 Headache Pollen Other (Please comment) 01/17/2014 Runny nose, itchy eyes, nasal congestion documented as of this encounter (statuses as of 09/23/2023) Medications Medication Sig Dispensed Refills Start Date [...] D, by GOLD 2017 classification ([facility]) Inhale 1 Puff by mouth 2 times a day. 180 Each 3 05/16/2021 Active Spiriva Respimat 2.5 MCG/ACT Inhalation Aerosol SolutionIndications: COPD, group D, by GOLD 2017 classification ([facility]) Take 2 puffs once daily 12 g 3 05/16/2021 Active Montelukast Sodium 10 MG Oral Tablet (Singulair)Indicatio ns:COPD, group D, by GOLD 2017 classification ([facility]) Take 1 Tab by mouth every evening. 90 Tab 3 05/16/2021 Active Fluticasone Propionate 50 MCG/ACT Nasal Suspension (Flonase)Indications :COPD, group D, by GOLD 2017 classification ([facility]) Administer 2 Sprays into nostril [...] D, by GOLD 2017 classification ([facility]),SOB (shortness of breath) Inhale 2 Puffs by mouth every 6 hours as needed for Shortness of Breath or Wheezing. 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, R dorsal hand, R scalp 2018, L dorsal wrist 06/07), basal cell carcinoma (L forearm, L preauricular region 09/2019) AK (actinic keratosis) 05/24/2014 Overview: Efudex 04/2014 documented as of this encounter (statuses as of 09/23/2023) Resolved Problems Problem Noted Date Diagnosed Date Resolved Date 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 caodaism 07/01/2019 09/28/2019 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 They stated patient is no longer under their care, admitted to hospital at the beginning of the week. Called and spoke with spouse who states patient is currently [facility] with[facility]. Call placed to f/u on discharge at the end of the week. Yanique Mccarthy RPh, PharmD Clinical Pharmacist - Bakery Associate Medication Therapy Disease Management [facility] 09/23/2023, 9:24 AM [phone] documented in this encounter Plan of Treatment Upcoming Encounters Date Type Department Care Team (Late st Contact Info) Description 09/25/2023 5:10 PM EST Anticoagulation Pharmacy, [address] [place] [address] [place] [address] 02/02/2024 3:30 PM EDT Office Visit Cardiology [address] [place] [address] Nils Webb PA-C [address] [place] [address] Health Maintenance Due Date Last Done Comments Pneumococcal Vaccine: 65+ Years (1 - PCV) 1947 Depression Screening 1953 Albumin/Creatinine Ratio 1959 DTaP,Tdap,and Td Vaccines (1 - Tdap) 1960 Zoster Vaccines (1 of 2) 1991 *ADVANCE DIRECTIVE NOT ON FILE 05/13/2020 GFR 01/06/2023 01/06/2022, 090 03/2020, 05/02/2019, Additional history exists COVID-19 Vaccine (3 - 2023- season) 2023 10/12/2020, 09/14/2020 O2 ASSESSMENT COMPLETED [...] 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s documented in this encounter Care Teams Electroslag Welding Machine Operator Relationship Specialty Start Date End Date Arun Alexandre MD [address] [place] [address] PCP - General Family Medicine 05/17/18 documented as of this encounter
--- OUTSIDE RECORDS SUMMARY | 2023-10-30 12:08 | External Medical Summary | Summary of Care ---
Author Name Unknown Organization [facility] Address [address] [place] [address] Phone [phone] Care Team Providers Care Molder Pipe Covering Name Role Phone Arun Alexandre MD Primary Care Provider [phone] Reason for Visit * Reason Comments eRx-Medication Refill Encounter Details Date Type Department Care Team (Late st Contact Info) Description 10/05/2023 Refill Cardiology, [facility] [address] [facility] [place] [phone] Martin Lombardo MD [address] [facility] [place] [address] Allergies Active Allergy Reactions Criticality Noted Date Comments Isosorbide Nitrate 05/07/2021 Headache Pollen Other (Please comment) 01/17/2014 Runny nose, itchy eyes, nasal congestion documented as of this encounter (statuses as of 10/05/2023) Medications Medication Sig Dispensed Refills Start Date [...] mouth daily. 34 Cap 11 7 Active dutasteride (AVODART) 0.5 MG Capsule Take [...] ons:COPD, group D, by GOLD 2017 classification ([facility]) Take 1 Tab by mouth every evening. 90 Tab 3 1 Active Fluticasone Propionate 50 MCG/ACT Nasal Suspension (Flonase)Indication s:COPD, group D, by GOLD 2017 classification ([facility] [...] Oral Tablet (Coumadin)Indicatio ns:PAF (paroxysmal atrial fibrillation) ([facility]),Anticoagulati on management encounter,Anticoagu lant long-term [...] THE MORNING 45 Tablet 3 4 Active Spironolactone 25 MG Oral Tablet (Aldactone) TAKE ONE-HALF TABLET BY MOUTH IN THE MORNING 45 Tablet 3 3 10/05/19 24 Discontinued documented as of this encounter (statuses as of 10/05/2023) Active Problems Problem Noted Date Diagnosed Date [...] disease) 05/16/2021 Chronic respiratory failure with hypoxia Chronic diastolic heart failure 05/16/2021 COPD, group [...] squamous cell carcinoma (L lateral forehead, L tenriism 07/05), 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, R dorsal hand, R scalp 2018, L dorsal wrist 06/07), basal cell carcinoma (L forearm, L preauricular region 09/2019) AK (actinic keratosis) 05/24/2014 Overview: Efudex 04/2014 documented as of this encounter (statuses as of 10/05/2023) Resolved Problems Problem Noted Date Diagnosed Date Resolved Date 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 07/01/2019 09/28/2019 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 01/26/2019 09/28/2019 COPD, severe 06/07/2018 02/28/2021 Overview: Per COPD GOLD Classification SCC (squamous cell carcinoma), face 05/03/2014 06/13/2015 Overview: L lateral forehead documented as of this encounter (statuses as of 10/05/2023) Immunizations Name Administration Dates Next Due Seasonal Influenza, PF, 6 M & above, IM , (FluLaval or Fluzone) 06/07/2018 Seasonal Influenza, Quadrivalent Hd (Fluzone Hd) 05/22/2023 Seasonal Influenza, Trivalent, Adjuvanted, 65+ y rs 05/09/2020 documented as of this encounter Social History Tobacco Use Types Packs/Day Years Used Date Smoking Tobacco: Former Cigarettes 2 38 1 941 - 1549 Smokeless Tobacco: Current Snuff Comments:A can a [...] encounter Miscellaneous Notes * Telephone Encounter - Megan Webb PA-C - 10/05/2023 12:47 PM ESTSigned Prescriptions: Disp Refills Spironolactone 25 MG Oral Tablet (Aldacton*45 Tab*3 Sig: TAKE ONE-HALF TABLET BY MOUTH IN THE MORNING Authorizing Provider: MEGAN WEBB * Telephone Encounter - Keenan Hampton RN - 10/05/2023 12:35 PM ESTPending Prescriptions: Disp Refills Spironolactone 25 MG Oral Tablet 45 Tab*3 Sig: TAKE ONE-HALF TABLET BY MOUTH IN THE MORNING * Telephone Encounter - Keenan Hampton RN - 10/05/2023 12:34 PM EST Pending Prescriptions: Disp Refills Spironolactone 25 MG Oral Tablet (Aldacto*45 Tab*3 Sig: TAKE ONE-HALF TABLET BY MOUTH IN THE MORNING Last Visit: 05/22/2023 (in office), Visit date not found (telemedicine) Next Visit: Visit date not found Last medication order date: 08/29/2022 Have you choosen a preferred pharm?? 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, group D, by GOLD 2017 classification ([facility]) J44.9 PHT (pulmonary hypertension) ([facility]) I27.20 ILD (interstitial lung disease) ([facility]) J84.9 Chronic respiratory failure with hypoxia ([facility]) J96.11 Chronic diastolic heart failure ([facility]) I50.32 Vitamin B deficiency E53.9 Vitamin D deficiency E55.9 Encounter for long-term (current) use of other medications Z79.899 Screening for prostate cancer Z12.5 PAF (paroxysmal atrial fibrillation) ([facility]) I48.0 Need for prophylactic vaccination and inoculation against influenza Z23 Anticoagulation management encounter Z51.81, Z79.01 Anticoagulant long-term use Z79.01 Labs: Lab Results Component Value Date/Time CREATININE - [facility] 1.0 01/06/2022 12:09 PM CREATININE - [facility] 1.0 04/24/2020 11:57 AM CREATININE-OUTSIDE LAB 1.01 01/08/2016 12:00 AM Lab Results Component Value Date/Time POTASSIUM - [facility] 4.7 01/06/2022 12:09 PM POTASSIUM - [facility] 4.5 04/24/2020 11:57 AM POTASSIUM-[facility] 5.1 (A) 01/08/2016 12:00 AM Lab Results Component Value Date/Time TSH - [facility] 1.56 05/22/2023 11:40 AM TSH - [facility] 2.13 01/25/2019 10:57 AM Lab Results Component Value Date/Time LDL (CALCULATED)-[facility]IDE [facility] 144 (A) 01/08/2016 12:00 AM LDL CHOLESTEROL (CALCULATED) - [facility] 83 05/22/2023 11:40 AM No results found for: "ALT" Hemoglobin AIC Results: No results found for: "HEMOGLOBIN A1C" documented in this encounter Plan of Treatment Upcoming Encounters Date Type Department Care Team (Late st Contact Info) Description 10/08/2023 5:10 PM EST Anticoagulation Pharmacy, [address] [place] [address] [place] [address] 02/02/2024 3:30 PM EDT Office Visit Cardiology [address] [place] [address] Megan Webb PA-Ryanne [address] [place] [address] Health Maintenance Due Date Last Done Comments [...] filedocumented as of this encounter Care Teams Molder Pipe Covering Relationship Specialty Start Date End Date Arnu Alexandre MD [address] [place] [address] PCP - General Family Medicine 05/17/18 documented as of this encounter
--- OUTSIDE RECORDS SUMMARY | 2023-10-30 12:08 | External Medical Summary | Summary of Care ---
Author Name Unknown Organization [facility] Address [address] [place] [address] Phone [phone] Care Team Providers Care Dentist/Owner Name Role Phone Arun Alexandre MD Primary Care Provider [phone] Reason for Visit * Reason Comments Dosage Adjustment Via Phone (anticoag Cl inic) Encounter Details Date Type Department Care Team (Latest Contact Info) Description 10/08/2023 5:10 PM [facility] Anticoagulation Pharmacy, [address] [place] [address] [place] [address] PAF (paroxysmal atrial fibrillation) ([facility])*; Anticoagulation management encounter; Anticoagulant long-term use Allergies Active Allergy Reactions Criticality Noted Date Comments Isosorbide Nitrate 05/07/2021 Headache Pollen Other (Please comment) 01/17/2014 Runny nose, itchy eyes, nasal congestion documented as of this encounter (statuses as of 10/08/2023) Medications Medication Sig Dispensed Refills Start Date [...] group D, by GOLD 2017 classification ([facility]) Inhale 1 Puff by mouth 2 times a day. 180 Each 3 05/16/2021 Active Spiriva Respimat 2.5 MCG/ACT Inhalation Aerosol SolutionIndications: COPD, group D, by GOLD 2017 classification ([facility]) Take 2 puffs once daily 12 g 3 05/16/2021 Active Montelukast Sodium 10 MG Oral Tablet (Singulair)Indicatio ns:COPD, group D, by GOLD 2017 classification ([facility]) Take 1 Tab by mouth every evening. 90 Tab 3 05/16/2021 Active Fluticasone Propionate 50 MCG/ACT Nasal Suspension (Flonase)Indications :COPD, group D, by GOLD 2017 classification ([facility]) Administer 2 Sprays into nostril daily. [...] Oral Tablet (Coumadin)Indication s:PAF (paroxysmal atrial fibrillation) ([facility]),Anticoagulatio n management encounter,Anticoagul ant long-term use Take 1 Tablet by mouth every evening. 30 Tablet 5 05/22/2023 Active ProAir HFA 108 (90 Base) MCG/ACT Inhalation Aerosol SolutionIndications: COPD, group D, by GOLD 2017 classification ([facility]),SOB (shortness of breath) Inhale 2 Puffs by mouth every 6 hours as needed for Shortness of Breath or Wheezing. 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, R dorsal hand, R scalp 2018, L dorsal wrist 06/07), basal cell carcinoma (L forearm, L preauricular region 09/2019) AK (actinic keratosis) 05/24/2014 Overview: Efudex 04/2014 documented as of this encounter (statuses as of 10/08/2023) Resolved Problems Problem Noted Date Diagnosed Date Resolved Date 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 oriental orthodox 07/01/2019 09/28/2019 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 Remains under their care at this time. Call placed to f/u x1 week. Yanique Mccarthy RPh, PharmD Clinical Pharmacist - Automobile Contract Clerk Medication Therapy Disease Management Clinic 10/08/2023, 9:22 AM [phone] documented in this encounter Plan of Treatment Upcoming Encounters Date Type Department Care Team (Late st Contact Info) Description 10/15/2023 5:10 PM EST Anticoagulation Pharmacy, [address] [place] [address] [place] [address] 10/27/2023 8:30 AM EDT Office Visit Cardiology, [facility] [address] [place] [address] Harika Álvarez CRNP [address] [place] [address] Health Maintenance Due Date Last Done Comments [...] 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s documented in this encounter Care Teams Dentist/Owner Relationship Specialty Start Date End Date Arun Alexandre MD [address], [place] [id number] PCP - General Family Medicine 05/17/18 documented as of this encounter
--- OUTSIDE RECORDS SUMMARY | 2023-10-30 12:09 | External Medical Summary | Summary of Care ---
Author Name Unknown Organization [facility] Address [address] [place] [address] Phone [phone] Care Team Providers Care Lead Level Designer Name Role Phone Arun Alexandre MD Primary Care Provider [phone] Encounter Details Date Type Department Care Team (Late st Contact Info) Description 08/24/2023 Telephone Pharmacy, [address] [place] [address] [facility] [address] [place], [place] [phone] Allergies Active Allergy Reactions Criticality Noted Date Comments Isosorbide Nitrate 05/07/2021 Headache Pollen Other (Please comment) 01/17/2014 Runny nose, itchy eyes, nasal congestion documented as of this encounter (statuses as of 08/24/2023) Medications Medication Sig Dispensed Refills Start Date [...] OPD, group D, by GOLD 2017 classification ([facility]) Inhale 1 Puff by mouth 2 times a day. 180 Each 3 05/16/2021 Active Spiriva Respimat 2.5 MCG/ACT Inhalation Aerosol SolutionIndications: COPD, group D, by GOLD 2017 classification ([facility]) Take 2 puffs once daily 12 g 3 05/16/2021 Active Montelukast Sodium 10 MG Oral Tablet (Singulair)Indicatio ns:COPD, group D, by GOLD 2017 classification ([facility]) Take 1 Tab by mouth every evening. 90 Tab 3 05/16/2021 Active Fluticasone Propionate 50 MCG/ACT Nasal Suspension (Flonase)Indications :COPD, group D, by GOLD 2017 classification ([facility]) Administer 2 Sprays into nostril [...] COPD, group D, by GOLD 2017 classification ([facility]),SOB (shortness of breath) Inhale 2 Puffs by mouth every 6 hours as needed for Shortness of Breath or Wheezing. 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 States patient is currently admitted at [facility]. Will plan to place call on to f/u for discharge. Yanique Mccarthy RPh, PharmD Clinical Pharmacist - Human Resources Trainer Medication Therapy Disease Management Clinic 08/24/2023, 8:52 AM [phone] documented in this encounter Plan of Treatment Upcoming Encounters Date Type Department Care Team (Late st Contact Info) Description 08/26/2023 5:10 PM EST Anticoagulation Pharmacy, [address] [place] [address] [place] [address] 02/02/2024 3:30 PM EDT Office Visit Cardiology [address] [place] [address] Nils Webb PA-C [address] [place] [address] Health Maintenance Due Date Last Done Comments [...] 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s documented in this encounter Care Teams Lead Level Designer Relationship Specialty Start Date End Date Arun Alexandre MD [address] [place] [address] PCP - General Family Medicine 05/17/18 documented as of this encounter
--- OUTSIDE RECORDS SUMMARY | 2023-10-30 12:09 | External Medical Summary | Summary of Care ---
Author Name Unknown Organization [facility] Address [address] [place] [address] Phone [phone] Care Team Providers Care Greenhouse Worker Name Role Phone Arun Alexandre MD Primary Care Provider [phone] Reason for Visit * Reason Comments Dosage Adjustment Via Phone (anticoag Cl inic) Encounter Details Date Type Department Care Team (Latest Contact Info) Description 09/02/2023 5:10 PM [facility] Anticoagulation Pharmacy, [address] [place] [address] [place] [address] PAF (paroxysmal atrial fibrillation) ([facility])*; Anticoagulation management encounter; Anticoagulant long-term use Allergies Active Allergy Reactions Criticality Noted Date Comments Isosorbide Nitrate 05/07/2021 Headache Pollen Other (Please comment) 01/17/2014 Runny nose, itchy eyes, nasal congestion documented as of this encounter (statuses as of 09/02/2023) Medications Medication Sig Dispensed Refills Start Date [...] OPD, group D, by GOLD 2017 classification ([facility]) Inhale 1 Puff by mouth 2 times a day. 180 Each 3 05/16/2021 Active Spiriva Respimat 2.5 MCG/ACT Inhalation Aerosol SolutionIndications: COPD, group D, by GOLD 2017 classification ([facility]) Take 2 puffs once daily 12 g 3 05/16/2021 Active Montelukast Sodium 10 MG Oral Tablet (Singulair)Indicatio ns:COPD, group D, by GOLD 2017 classification ([facility]) Take 1 Tab by mouth every evening. 90 Tab 3 05/16/2021 Active Fluticasone Propionate 50 MCG/ACT Nasal Suspension (Flonase)Indications :COPD, group D, by GOLD 2017 classification ([facility]) Administer 2 Sprays into nostril [...] COPD, group D, by GOLD 2017 classification ([facility]),SOB (shortness of breath) Inhale 2 Puffs by mouth every 6 hours as needed for Shortness of Breath or Wheezing. 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 Remains under their care at this time. Call placed to f/u x1 week. Yanique Mccarthy RPh, PharmD Clinical Pharmacist - Elevator Runner Medication Therapy Disease Management Clinic 09/02/2023, 12:06 PM [phone] documented in this encounter Plan of Treatment Upcoming Encounters Date Type Department Care Team (Late st Contact Info) Description 09/09/2023 5:10 PM EST Anticoagulation Pharmacy, [address] [place] [address] [place] [address] 02/02/2024 3:30 PM EDT Office Visit Cardiology [address] [place] [address] Nils Webb PA-C [address] [place] [address] Health Maintenance Due Date Last Done Comments [...] 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s documented in this encounter Care Teams Greenhouse Worker Relationship Specialty Start Date End Date Arun Alexandre MD [address] [place] [address] PCP - General Family Medicine 05/17/18 documented as of this encounter
--- OUTSIDE RECORDS SUMMARY | 2023-10-30 12:09 | External Medical Summary | Summary of Care ---
Author Name Unknown Organization [facility] Address [address] [place] [address] Phone [phone] Care Team Providers Care Four Roll Calender Operator Name Role Phone Arun Alexandre MD Primary Care Provider Reason for Visit * Reason Comments Dosage Adjustment Via Phone (anticoag Cl inic) Hospital Follow-Up Encounter Details Date Type Department Care Team (Latest Contact Info) Description 09/09/2023 5:10 PM [facility] Anticoagulation Pharmacy, [address] [place] [address] [place] [address] PAF (paroxysmal atrial fibrillation) ([facility])*; Anticoagulation management encounter; Anticoagulant long-term use Allergies Active Allergy Reactions Criticality Noted Date Comments Isosorbide Nitrate 05/07/2021 Headache Pollen Other (Please comment) 01/17/2014 Runny nose, itchy eyes, nasal congestion documented as of this encounter (statuses as of 09/09/2023) Medications Medication Sig Dispensed Refills Start Date [...] D, by GOLD 2017 classification ([facility]) Inhale 1 Puff by mouth 2 times a day. 180 Each 3 05/16/2021 Active Spiriva Respimat 2.5 MCG/ACT Inhalation Aerosol SolutionIndications: COPD, group D, by GOLD 2017 classification ([facility]) Take 2 puffs once daily 12 g 3 05/16/2021 Active Montelukast Sodium 10 MG Oral Tablet (Singulair)Indicatio ns:COPD, group D, by GOLD 2017 classification ([facility]) Take 1 Tab by mouth every evening. 90 Tab 3 05/16/2021 Active Fluticasone Propionate 50 MCG/ACT Nasal Suspension (Flonase)Indications :COPD, group D, by GOLD 2017 classification ([facility]) Administer 2 Sprays into nostril [...] D, by GOLD 2017 classification ([facility]),SOB (shortness of breath) Inhale 2 Puffs by mouth every 6 hours as needed for Shortness of Breath or Wheezing. 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, R dorsal hand, R scalp 2018, L dorsal wrist 06/07), basal cell carcinoma (L forearm, L preauricular region 09/2019) AK (actinic keratosis) 05/24/2014 Overview: Efudex 04/2014 documented as of this encounter (statuses as of 09/09/2023) Resolved Problems Problem Noted Date Diagnosed Date Resolved Date 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 mormon 07/01/2019 09/28/2019 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 Remains under their care at this time. Call placed to f/u x1 week. Yanique Mccarthy RPh, PharmD Clinical Pharmacist - [place] Consultant Medication Therapy [facility] 09/09/2023, 8:34 AM [phone] documented in this encounter Plan of Treatment Upcoming Encounters Date Type Department Care Team (Late st Contact Info) Description 09/16/2023 5:10 PM EST Anticoagulation Pharmacy, [address] [place] [address] [place] [address] 02/02/2024 3:30 PM EDT Office Visit Cardiology [address] [place] [address] Nils Webb PA-C [address] [place] [address] Health Maintenance Due Date Last Done Comments [...] 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s documented in this encounter Care Teams Four Roll Calender Operator Relationship Specialty Start Date End Date Arun Alexandre MD [address] [place] [address] PCP - General Family Medicine 05/17/18 documented as of this encounter
--- OUTSIDE RECORDS SUMMARY | 2023-10-30 12:09 | External Medical Summary | Summary of Care ---
Author Name Unknown Organization [facility] Address [address] [place] [address] Phone [phone] Care Team Providers Care Superintendent Logging Name Role Phone Arun Alexandre MD Primary Care Provider [phone] Reason for Visit * Reason Comments Dosage Adjustment Via Phone (anticoag Cl inic) Encounter Details Date Type Department Care Team (Latest Contact Info) Description 09/16/2023 5:10 PM [facility] Anticoagulation Pharmacy, [address] [place] [address] [place] [address] PAF (paroxysmal atrial fibrillation) ([facility])*; Anticoagulation management encounter; Anticoagulant long-term use Allergies Active Allergy Reactions Criticality Noted Date Comments Isosorbide Nitrate 05/07/2021 Headache Pollen Other (Please comment) 01/17/2014 Runny nose, itchy eyes, nasal congestion documented as of this encounter (statuses as of 09/16/2023) Medications Medication Sig Dispensed Refills Start Date [...] OPD, group D, by GOLD 2017 classification ([facility]) Inhale 1 Puff by mouth 2 times a day. 180 Each 3 05/16/2021 Active Spiriva Respimat 2.5 MCG/ACT Inhalation Aerosol SolutionIndications: COPD, group D, by GOLD 2017 classification ([facility]) Take 2 puffs once daily 12 g 3 05/16/2021 Active Montelukast Sodium 10 MG Oral Tablet (Singulair)Indicatio ns:COPD, group D, by GOLD 2017 classification ([facility]) Take 1 Tab by mouth every evening. 90 Tab 3 05/16/2021 Active Fluticasone Propionate 50 MCG/ACT Nasal Suspension (Flonase)Indications :COPD, group D, by GOLD 2017 classification ([facility]) Administer 2 Sprays into nostril daily. [...] COPD, group D, by GOLD 2017 classification ([facility]),SOB (shortness of breath) Inhale 2 Puffs by mouth every 6 hours as needed for Shortness of Breath or Wheezing. 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 Remains under their care at this time. Call placed to f/u x1 week. Yanique Mccarthy RPh, PharmD Clinical Pharmacist - Help Desk Coordinator Medication Therapy [facility] 09/16/2023, 8:54 AM [phone] documented in this encounter Plan of Treatment Upcoming Encounters Date Type Department Care Team (Late st Contact Info) Description 09/23/2023 5:10 PM EST Anticoagulation Pharmacy, [address] [place] [address] [place] [address] 02/02/2024 3:30 PM EDT Office Visit Cardiology [address] [place] [address] Nils Webb PA-C [address] [place] [address] Health Maintenance Due Date Last Done Comments [...] 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s documented in this encounter Care Teams Superintendent Logging Relationship Specialty Start Date End Date Arun Alexandre MD [address] [place] [address] PCP - General Family Medicine 05/17/18 documented as of this encounter
--- OUTSIDE RECORDS SUMMARY | 2023-10-30 12:09 | External Medical Summary | Summary of Care ---
Author Name Unknown Organization [facility] Address [address] [place] [address] Phone [phone] Care Team Providers Care Insurance Salesperson Name Role Phone Arun Alexandre MD Primary Care Provider + [phone] Reason for Visit * Reason Onset Date Comments Test Results 11/25/2021 Ct of chest Encounter Details Date Type Department Care Team (Late st Contact Info) Description 11/25/2021 Telephone [facility] [address] Ashwini Boykin CRNP Test Results (Ct of chest) Allergies Active Allergy Reactions Criticality Noted Date Comments Isosorbide Nitrate 05/07/2021 Headache Pollen Other (Please comment) 01/17/2014 Runny nose, itchy eyes, nasal congestion documented as of this encounter (statuses as of 07/30/2023) Medications Medication Sig Dispensed Refills Start Date [...] :COPD, group D, by GOLD 2017 classification ([facility]) Inhale 1 Puff by mouth 2 times a day. 180 Each 3 1 Active Spiriva Respimat 2.5 MCG/ACT Inhalation Aerosol SolutionIndication s:COPD, group D, by GOLD 2017 classification ([facility]) Take 2 puffs once daily 12 g 3 1 Active Montelukast Sodium 10 MG Oral Tablet (Singulair)Indicat ions:COPD, group D, by GOLD 2017 classification ([facility]) Take 1 Tab by mouth every evening. 90 Tab 3 1 Active Fluticasone Propionate 50 MCG/ACT Nasal Suspension (Flonase)Indicatio ns:COPD, group D, by GOLD 2017 classification ([facility]) Administer 2 Sprays into nostril daily. 16 g 3 1 Active Omeprazole 20 MG Oral Capsule Delayed Release (PriLOSEC)Indicati ons:Gastroesophage al reflux disease without esophagitis Take 1 Cap by mouth daily as needed for Heartburn. 90 Cap 3 1 Active PROAIR HFA 108 (90 BASE) MCG/ACT IN AERS 2 puffs as needed 0 01/07/20 22 Discontinued(Re fill) tamsulosin (FLOMAX) 0.4 MG Capsule Take 1 Capsule by mouth in the morning. 0 6 05/12/20 23 Discontinued(Josh sierra preference/disc ontinuation) Isosorbide Mononitrate ER 30 MG Oral Tablet Extended Release 24 Hour (Imdur) Take 1 Tab by mouth daily. In the morning 31 Tab 5 1 01/07/20 22 Discontinued Atorvastatin Calcium 10 MG Oral Tablet (Lipitor)Indicatio ns:Dyslipidemia, goal LDL below 70 TAKE 1 TABLET BY MOUTH DAILY 90 Tab 3 1 04/22/20 22 Discontinued Spironolactone 25 MG Oral Tablet (Aldactone) Take by mouth 0.5 Tablets in the morning. 45 Tablet 3 2 08/29/19 23 Discontinued Furosemide 20 MG Oral Tablet (Lasix) Take 1 tablet by mouth 5 days a week 60 Tablet 3 2 07/28/20 22 Discontinued Carvedilol 3.125 MG Oral Tablet (Coreg)Indications :HTN, goal below 140/90 Take by mouth 2 Tablets 2 times a day with morning and evening meals . Take 2 tablets in the AM and 1 tablet in the PM 360 Tablet 3 2 01/24/20 22 Discontinued(Re fill) amLODIPine Besylate 2.5 MG Oral Tablet (Norvasc) Take by mouth 1 Tablet before bedtime. 90 Tablet 3 2 10/14/19 23 Discontinued Hospital, Clinic, or Other Facility Administered Medication Ordered Dose Route Frequency Start Date End Date Status Albuterol Sulfate (Proventil) (2.5 MG/3ML) 0.083% inhalation solution 2.5 mgIndications:COPD, severe (HCC) 2.5 mg NEBULIZER PRN 12/14/2020 12/14/2021 Ended Albuterol Sulfate (Proventil) (5 MG/ML) 0.5% *conc* inhalation solution 2.5 mgIndications:COPD, severe (HCC) 2.5 mg NEBULIZER PRN 12/14/2020 12/14/2021 Ended documented as of this encounter (statuses as of 07/30/2023) Active Problems Problem Noted Date Diagnosed Date [...] squamous cell carcinoma (L lateral forehead, L presybeterian 07/05), 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, R dorsal hand, R scalp 2018, L dorsal wrist 06/07), basal cell carcinoma (L forearm, L preauricular region 09/2019) AK (actinic keratosis) 05/24/2014 Overview: Efudex 04/2014 documented as of this encounter (statuses as of 07/30/2023) Resolved Problems Problem Noted Date Diagnosed Date Resolved Date 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 presybeterian 07/01/2019 09/28/2019 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 * Telephone Encounter - Ashwini Boykin CRNP - 02/18/2022 9:31 AM EDT Can we reach out to him to schedule-- had cancelled his appt in November. Can be with me or Allan,rufino * Telephone Encounter - Becca Merida LPN - 12/11/2021 9:35 AM EDT I spoke with the pt's , who says they have not been able to retrieve the MyG message. I read Ashwini's message to Mrs Galvan, who verbalized understanding. She will relay to Dru. They will be expecting a call to schedule CT Chest and f/u appt. * Telephone Encounter - Becca Merida LPN - 12/06/2021 10:18 AM EDT I spoke with Mrs Galvan (pt wasn't available). She will ask Dru to read the MyG message and get back to us. * Telephone Encounter - Becca Merida LPN - 12/03/2021 12:01 PM EDT LM asking pt to read portal message or call us back. * Telephone Encounter - Ashwini Boykin CRNP - 12/03/2021 9:43 AM EDT Please call and let him know about my message, thanks documented in this encounter Plan of Treatment Upcoming Encounters Date Type Department Care Team (Late st Contact Info) Description 08/24/2023 8:20 AM EST Office Visit Dermatology [address] [place] [address] Kay Haney PA-C [address] [place] [address] [place] [address] 08/24/2023 8:50 AM EST Anticoagulation Pharmacy, [address] [place] [address] [place] [address] 02/02/2024 3:30 PM EDT Office Visit Cardiology [address] [place] [address] Nils Webb PA-C [address] [place] [address] Health Maintenance Due Date Last Done Comments [...] filedocumented as of this encounter Care Teams Insurance Salesperson Relationship Specialty Start Date End Date Arun Alexandre MD [address] [place] [address] PCP - General Family Medicine 05/17/18 documented as of this encounter
--- OUTSIDE RECORDS SUMMARY | 2023-10-30 12:09 | External Medical Summary | Summary of Care ---
Author Name Unknown Organization [facility] Address [address] [place] [address] Phone [phone] Care Team Providers Care Butter Grader Name Role Phone Arun Alexandre MD Primary Care Provider + [phone] Encounter Details Date Type Department Care Team (Late st Contact Info) Description 08/18/2023 Result Scan Unspecified Department <No scans attached> Allergies Active Allergy Reactions Criticality Noted Date Comments Isosorbide Nitrate 05/07/2021 Headache Pollen Other (Please comment) 01/17/2014 Runny nose, itchy eyes, nasal congestion documented as of this encounter (statuses as of 08/19/2023) Medications Medication Sig Dispensed Refills Start Date [...] D, by GOLD 2017 classification ([facility]) Inhale 1 Puff by mouth 2 times a day. 180 Each 3 05/16/2021 Active Spiriva Respimat 2.5 MCG/ACT Inhalation Aerosol SolutionIndications: COPD, group D, by GOLD 2017 classification ([facility]) Take 2 puffs once daily 12 g 3 05/16/2021 Active Montelukast Sodium 10 MG Oral Tablet (Singulair)Indicatio ns:COPD, group D, by GOLD 2017 classification ([facility]) Take 1 Tab by mouth every evening. 90 Tab 3 05/16/2021 Active Fluticasone Propionate 50 MCG/ACT Nasal Suspension (Flonase)Indications :COPD, group D, by GOLD 2017 classification ([facility]) Administer 2 Sprays into nostril [...] D, by GOLD 2017 classification ([facility]),SOB (shortness of breath) Inhale 2 Puffs by mouth every 6 hours as needed for Shortness of Breath or Wheezing. 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 01/26/2019 09/28/2019 COPD, severe 06/07/2018 02/28/2021 Overview: Per COPD GOLD Classification SCC (squamous cell carcinoma), face 05/03/2014 06/13/2015 Overview: L lateral forehead documented as of this encounter (statuses as of 08/19/2023) Immunizations Name Administration Dates Next Due Seasonal [...] on file documented as of this encounter Plan of Treatment Upcoming Encounters Date Type Department Care Team (Late st Contact Info) Description 08/24/2023 8:20 AM EST Office Visit Dermatology [address] [place] [address] Kay Haney PA-C [address] [place] [address] [place] [address] 08/24/2023 8:50 AM EST Anticoagulation Pharmacy, [address] [place] [address] [place] [address] 02/02/2024 3:30 PM EDT Office Visit Cardiology [address] [place] [address] Nils Webb PA-C [address] [place] [address] Health Maintenance Due Date Last Done Comments [...] Procedure Name Priority Date/Time Associated Diagnosis Comments ECHOCARDIOLOGY SCANNED RESULT 08/18/2023 documented in this encounter Results * ECHOCARDIOLOGY SCANNED RESULT (08/18/2023) 08/18/2023 No Physician Data Unknown ECHOCARDIOLOGY documented in this encounter Care Teams Butter Grader Relationship Specialty Start Date End Date Arun Alexandre MD [address] [place] [address] PCP - General Family Medicine 05/17/18 documented as of this encounter
--- OUTSIDE RECORDS SUMMARY | 2023-10-30 12:09 | External Medical Summary | Summary of Care ---
Author Name Unknown Organization [facility] Address [address] [place] [address] Phone [phone] Care Team Providers Care Dog Food Shredder Operator Name Role Phone Arun Alexandre MD Primary Care Provider Reason for Visit * Reason Comments Dosage Adjustment Via Phone (anticoag Cl inic) Hospital Follow-Up Encounter Details Date Type Department Care Team (Latest Contact Info) Description 08/26/2023 5:10 PM [facility] Anticoagulation Pharmacy, [address] [place] [address] [place] [address] PAF (paroxysmal atrial fibrillation) ([facility])*; Anticoagulation management encounter; Anticoagulant long-term use Allergies Active Allergy Reactions Criticality Noted Date Comments Isosorbide Nitrate 05/07/2021 Headache Pollen Other (Please comment) 01/17/2014 Runny nose, itchy eyes, nasal congestion documented as of this encounter (statuses as of 08/26/2023) Medications Medication Sig Dispensed Refills Start Date [...] OPD, group D, by GOLD 2017 classification ([facility]) Inhale 1 Puff by mouth 2 times a day. 180 Each 3 05/16/2021 Active Spiriva Respimat 2.5 MCG/ACT Inhalation Aerosol SolutionIndications: COPD, group D, by GOLD 2017 classification ([facility]) Take 2 puffs once daily 12 g 3 05/16/2021 Active Montelukast Sodium 10 MG Oral Tablet (Singulair)Indicatio ns:COPD, group D, by GOLD 2017 classification ([facility]) Take 1 Tab by mouth every evening. 90 Tab 3 05/16/2021 Active Fluticasone Propionate 50 MCG/ACT Nasal Suspension (Flonase)Indications :COPD, group D, by GOLD 2017 classification ([facility]) Administer 2 Sprays into nostril [...] COPD, group D, by GOLD 2017 classification ([facility]),SOB (shortness of breath) Inhale 2 Puffs by mouth every 6 hours as needed for Shortness of Breath or Wheezing. 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, R dorsal hand, R scalp 2018, L dorsal wrist 06/07), basal cell carcinoma (L forearm, L preauricular region 09/2019) AK (actinic keratosis) 05/24/2014 Overview: Efudex 04/2014 documented as of this encounter (statuses as of 08/26/2023) Resolved Problems Problem Noted Date Diagnosed Date Resolved Date 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 yarsani 07/01/2019 09/28/2019 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 Called and spoke with [facility] ([phone]). Confirmed patient is under their care. Discharged on Coumadin. They manage in-house. Call placed to f/u x1 week. Yanique Mccarthy RP, PharmD Clinical Pharmacist - Street Car Mechanic Medication Therapy Disease Management [facility] 08/26/2023, 3:53 PM [phone] documented in this encounter Plan of Treatment Upcoming Encounters Date Type Department Care Team (Late st Contact Info) Description 09/02/2023 5:10 PM EST Anticoagulation Pharmacy, [address] [place] [address] [place] [address] 02/02/2024 3:30 PM EDT Office Visit Cardiology [address] [place] [address] Nils Webb PA-C [address] [place] [address] Health Maintenance Due Date Last Done Comments Pneumococcal Vaccine: 65+ Years (1 - PCV) 1946 Depression Screening 1953 Albumin/Creatinine Ratio 1959 DTaP,Tdap,and Td Vaccines (1 - Tdap) 1960 Zoster Vaccines (1 of 2) 1991 *ADVANCE DIRECTIVE NOT ON FILE 05/13/2020 GFR 01/06/2023 01/06/2022, 09/0 03/2020, 05/02/2019, Additional history exists COVID-19 Vaccine (3 - 2022-24 season) 2023 10/12/2020, 09/14/2020 O2 ASSESSMENT COMPLETED [...] 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s documented in this encounter Care Teams Dog Food Shredder Operator Relationship Specialty Start Date End Date Arun Alexandre MD [address] [place] [address] PCP - General Family Medicine 05/17/18 documented as of this encounter
--- OUTSIDE RECORDS SUMMARY | 2023-10-30 12:10 | External Medical Summary ---
Author Name Unknown Address Unknown Organization : Laboratory Report Ordering Provider Test Date Status YARIEL ALFORD 07/16/2023 13:40:27 Final Therapeutic ranges for non-o perative patients:
Prophylaxsis/treatment of DVT: (Range:2.0-3.0)
Treatment of pulmonary embolism:(Range:2.0-3.0)
Prevention of systemic embolism from:
-tissue heart valves
-acute myocardial infarction
-valvular heart disease
-atrial fibrillation
(Range: 2.0-3.0)
Mechanical prosthetic valves: (Range: 2.5-3.5) Observation Date Value Abnormality Reference (Units ) Status INR in Capillary blood by Coagulation assay 07/16/2023 13:40:27 3.3 (INR) Final Performing Location
--- OUTSIDE RECORDS SUMMARY | 2023-10-30 12:10 | External Medical Summary | Summary of Care ---
Author Name Unknown Organization [facility] Address [address] [place] [address] Phone [phone] Care Team Providers Care Manager Loss Prevention Name Role Phone Arun Alexandre MD Primary Care Provider Reason for Visit * Reason Onset Date Comments Scheduling 07/28/2023 Encounter Details Date Type Department Care Team (Late st Contact Info) Description 07/28/2023 Telephone Laboratory [address] [place] [phone] Nils Webb PA-C [address] [place] [address] Scheduling Allergies Active Allergy Reactions Criticality Noted Date Comments Isosorbide Nitrate 05/07/2021 Headache Pollen Other (Please comment) 01/17/2014 Runny nose, itchy eyes, nasal congestion documented as of this encounter (statuses as of 07/29/2023) Medications Medication Sig Dispensed Refills Start Date [...] group D, by GOLD 2017 classification ([facility]) Inhale 1 Puff by mouth 2 times a day. 180 Each 3 05/16/2021 Active Spiriva Respimat 2.5 MCG/ACT Inhalation Aerosol SolutionIndications: COPD, group D, by GOLD 2017 classification ([facility]) Take 2 puffs once daily 12 g 3 05/16/2021 Active Montelukast Sodium 10 MG Oral Tablet (Singulair)Indicatio ns:COPD, group D, by GOLD 2017 classification ([facility]) Take 1 Tab by mouth every evening. 90 Tab 3 05/16/2021 Active Fluticasone Propionate 50 MCG/ACT Nasal Suspension (Flonase)Indications :COPD, group D, by GOLD 2017 classification ([facility]) Administer 2 Sprays into nostril [...] Oral Tablet (Coumadin)Indication s:PAF (paroxysmal atrial fibrillation) ([facility]),Anticoagulatio n management encounter,Anticoagul ant long-term use Take 1 Tablet by mouth every evening. 30 Tablet 5 05/22/2023 Active ProAir HFA 108 (90 Base) MCG/ACT Inhalation Aerosol SolutionIndications: COPD, group D, by GOLD 2017 classification ([facility]),SOB (shortness of breath) Inhale 2 Puffs by mouth every 6 hours as needed for Shortness of Breath or Wheezing. 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, R dorsal hand, R scalp 2019, L dorsal wrist 06/07), basal cell carcinoma (L forearm, L preauricular region 09/2019) AK (actinic keratosis) 05/24/2014 Overview: Efudex 04/2014 documented as of this encounter (statuses as of 07/29/2023) Resolved Problems Problem Noted Date Diagnosed Date Resolved Date 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 latter day 07/01/2019 09/28/2019 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 I mailed appt to pt. * Telephone Encounter - Christina Aleman OSA - 07/28/2023 10:29 AM EST Please schedule: Return in about 4 months (around 11/27/2023) for Clinic Visit. No appts available until January, appt for November documented in this encounter Plan of Treatment Upcoming Encounters Date Type Department Care Team (Late st Contact Info) Description 07/30/2023 2:00 PM EST Anticoagulation Pharmacy, [address] [place] [address] [place] [address] 08/24/2023 8:20 AM EST Office Visit Dermatology [address] [place] [address] Kay Haney PA-C [address] [place] [address] [place] [address] 02/02/2024 3:30 PM EDT Office Visit Cardiology [address] [place] [address] Nils Webb PA-C [address] [place] [address] Health Maintenance Due Date Last Done Comments [...] filedocumented as of this encounter Care Teams Manager Loss Prevention Relationship Specialty Start Date End Date Arun Alexandre MD [address] [place] [address] PCP - General Family Medicine 05/17/18 documented as of this encounter
--- OUTSIDE RECORDS SUMMARY | 2023-10-30 12:10 | External Medical Summary ---
Author Name Unknown Address Unknown Organization : Laboratory Report Ordering Provider Test Date Status YARIEL ALFORD 06/18/2023 14:11:41 Final Therapeutic ranges for non-o perative patients:
Prophylaxsis/treatment of DVT: (Range:2.0-3.0)
Treatment of pulmonary embolism:(Range:2.0-3.0)
Prevention of systemic embolism from:
-tissue heart valves
-acute myocardial infarction
-valvular heart disease
-atrial fibrillation
(Range: 2.0-3.0)
Mechanical prosthetic valves: (Range: 2.5-3.5) Observation Date Value Abnormality Reference (Units ) Status INR in Capillary blood by Coagulation assay 06/18/2023 14:11:41 1.9 (INR) Final Performing Location
--- OUTSIDE RECORDS SUMMARY | 2023-10-30 12:10 | External Medical Summary ---
Author Name Unknown Address Unknown Organization [id number]:[facility] [place] - [address] [place] [address] Laboratory Report Ordering Provider Test Date Status ROCÍOCHAITANYAJennifer 07/02/2023 14:08:11 Final Warfarin Therapy
INR: 2 .0-3.0 conventional anticoagulation
INR: 2.5- 3.5 high intensity anticoagulation Observation Date Value Abnormality Reference (Units ) Status PT 07/02/2023 14:08:11 29.6 Above high normal 11 .6-15.2 (seconds) Final INR 07/02/2023 14:08:11 2.8 Above high normal 0. 8-1.2 Final Performing Location [facility] [place] - [address] [place] [address]
--- OUTSIDE RECORDS SUMMARY | 2023-10-30 12:10 | External Medical Summary | Summary of Care ---
Author Name Unknown Organization [facility] Address [address] [place] [address] Phone [phone] Care Team Providers Care Videotape Recording Engineer Name Role Phone Arun Alexandre MD Primary Care Provider [phone] Reason for Visit * Reason Onset Date Comments Medication Refill 06/29/2023 Encounter Details Date Type Department Care Team (Late st Contact Info) Description 06/29/2023 Refill Cardiology, [facility] [address] [place] [address] Megan Dior PA-C [address] [place] [address] SOB (shortness of breath)*; COPD, group D, by GOLD 2017 classification (HCC) Allergies Active Allergy Reactions Criticality Noted Date Comments Isosorbide Nitrate 05/07/2021 Headache Pollen Other (Please comment) 01/17/2014 Runny nose, itchy eyes, nasal congestion documented as of this encounter (statuses as of 07/03/2023) Medications Medication Sig Dispensed Refills Start Date [...] ons:COPD, group D, by GOLD 2017 classification ([facility]) Take 1 Tab by mouth every evening. 90 Tab 3 05/16/2021 Active Fluticasone Propionate 50 MCG/ACT Nasal Suspension (Flonase)Indication s:COPD, group D, by GOLD 2017 classification ([facility] [...] Active Atorvastatin Calcium 10 MG Oral Tablet (Lipitor)Indication [...] Oral Tablet (Coumadin)Indicatio ns:PAF (paroxysmal atrial fibrillation) ([facility]),Anticoagulati on management encounter,Anticoagu lant long-term use Take 1 Tablet by mouth every evening. 30 Tablet 5 05/22/2023 Active ProAir HFA 108 (90 Base) MCG/ACT Inhalation Aerosol SolutionIndications :COPD, group D, by GOLD 2017 classification ([facility]),SOB (shortness of breath) Inhale 2 Puffs by mouth every 6 hours as needed for Shortness of Breath or Wheezing. 18 g 3 07/03/2023 Active ProAir HFA 108 (90 Base) MCG/ACT Inhalation Aerosol Solution Inhale by mouth 2 Puffs every 6 hours as needed for Shortness of Breath or Wheezing. 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 01/26/2019 09/28/2019 COPD, severe 06/07/2018 02/28/2021 Overview: Per COPD GOLD Classification SCC (squamous cell carcinoma), face 05/03/2014 06/13/2015 Overview: L lateral forehead documented as of this encounter (statuses as of 07/03/2023) Immunizations Name Administration Dates Next Due SEASONAL INFLUENZA, PF, 6 M & Above, IM , (FLULAVAL or FLUZONE) 06/07/2018 Seasonal Influenza, Quadrivalent Hd (Fluzone Hd) [...] Miscellaneous Notes * Telephone Encounter - Megan Dior PA-C - 07/03/2023 1:59 PM ESTSigned Prescriptions: Disp Refills ProAir HFA 108 (90 Base) MCG/ACT Inhalatio*18 g 3 Sig: Inhale 2 Puffs by mouth every 6 hours as needed for Shortness of Breath or Wheezing. Authorizing Provider: MEGAN DIOR * Telephone Encounter - Zamzam Pappas CMA - 07/03/2023 1:18 PM EST Rx pended if agreeable. * Telephone Encounter - Debbie Hernandez accountant systems - 06/29/2023 10:15 AM EST Patient requesting refill of Albuterol documented in this encounter Plan of Treatment Upcoming Encounters Date Type Department Care Team (Late st Contact Info) Description 07/16/2023 1:50 PM EST Anticoagulation Pharmacy, [address] [place] [address] [place] [address] 07/28/2023 10:00 AM EST Office Visit Cardiology [address] [place] [address] Megan Dior PA-C [address] [place] [address] 08/24/2023 8:20 AM EST Office Visit Dermatology [address] [place] [address] Kay Haney PA-C [address] [place] [address] [place] [address] Health Maintenance Due Date Last Done Comments [...] as of this encounter Visit Diagnoses Diagnosis SOB (shortness of breath)- Primary Shortness of breath COPD, group D, by GOLD 2017 classification (HCC) documented in this encounter Care Teams Videotape Recording Engineer Relationship Specialty Start Date End Date Arun Alexandre MD [address] [place] [address] PCP - General Family Medicine 05/17/18 documented as of this encounter
--- OUTSIDE RECORDS SUMMARY | 2023-10-30 12:10 | External Medical Summary | Summary of Care ---
Author Name Unknown Organization [facility] Address [address] [place] [address] Phone [phone] Care Team Providers Care Quarrying Manager Name Role Phone Arun Alexandre MD Primary Care Provider Reason for Visit * Reason Comments Dosage Adjustment In Person (Anticoag Cl inic) Encounter Details Date Type Department Care Team (Latest Contact Info) Description 07/30/2023 2:00 PM [facility] Anticoagulation Pharmacy, [address] [place] [address] [place] [address] PAF (paroxysmal atrial fibrillation) ([facility])*; Anticoagulation management encounter; Anticoagulant long-term use; 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 180 Each 3 05/16/2021 Active Spiriva Respimat 2.5 MCG/ACT Inhalation Aerosol SolutionIndications: COPD, group D, by GOLD 2017 classification ([facility]) Take 2 puffs once daily 12 g 3 05/16/2021 Active Montelukast Sodium 10 MG Oral Tablet (Singulair)Indicatio ns:COPD, group D, by GOLD 2017 classification ([facility]) Take 1 Tab by mouth every evening. 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, R dorsal hand, R scalp 2018, L dorsal wrist 06/07), basal cell carcinoma (L forearm, L preauricular region 09/2019) AK (actinic keratosis) 05/24/2014 Overview: Efudex 04/2014 documented as of this encounter (statuses as of 07/30/2023) Resolved Problems Problem Noted Date Diagnosed Date Resolved Date 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 adventism 07/01/2019 09/28/2019 Squamous cell carcinoma in s [...] Progress Notes * Yanique Mccarthy RPh - 07/30/2023 1:54 PM EST Medication Therapy Disease Management - Anticoagulation Patient: Dru Galvan | : 1940 Subjective Patient-Reported Symptoms: Patient Findings Negatives: Signs/symptoms of thrombosis, Signs/symptoms of bleeding, Change in health, Change in alcohol use, Change in activity, Upcoming invasive procedure, Missed doses, Extra doses, Change in medications, Change in diet/appetite, Bruising Objective Current Warfarin Dose As of 07/30/2023 Warfarin maintenance plan: 5 mg (5 mg x 1) every Mon, Fri; 2.5 mg (5 mg x 0.5) all other days INR Result As of 07/30/2023 INR goal: 2.0-3.0 INR used for dosin.5 (07/30/2023) Assessment & Plan Warfarin Plan As of 07/30/2023 Full warfarin instructions: 5 mg every Mon, Fri; 2.5 mg all other days No change documented: Yanique Mccarthy RPh Next INR check: 08/24/2023 Repeat PT/INR in 4 week(s) Weekly dose: not changed Additional Dosing Information: Yanique Mccarthy RPh Clinical Pharmacist 07/30/2023, 1:54 PM documented in this encounter Plan of Treatment Upcoming Encounters Date Type Department Care Team (Late st Contact Info) Description 08/24/2023 8:20 AM EST Office Visit Dermatology [address] [place] [address] Kay Haney PA-C [address] [place] [address] [place] [address] 08/24/2023 8:50 AM EST Anticoagulation Pharmacy, [address] [place] [address] [place] [address] 02/02/2024 3:30 PM EDT Office Visit Cardiology [address] [place] [address] Nils Webb PA-C [address] [place] [address] Health Maintenance Due Date Last Done Comments [...] Comments INR FINGERSTICK, POINT OF CARE Routine 07/30/2023 2:00 PM EST PAF (paroxysmal atrial fibrillation) (HCC) Anticoagulation management encounter Anticoagulant long-term use assisted current use of 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 therapy documented in this encounter Results * INR FINGERSTICK, POINT OF CARE (07/30/2023 2:00 PM EST) Fingerstick INR 2.5 INR 3 2:02 PM EST [facility] Blood 07/30/2023 2:00 PM EST 07/30/2023 2:02 PM EST Narrative [facility] - 07/30/2023 2:02 PM EST Therapeutic ranges for non-operative patients: Prophylaxsis/treatment of DVT: (Range:2.0-3.0) Treatment of pulmonary embolism:(Range:2.0-3.0) Prevention of systemic embolism from: -tissue heart valves -acute myocardial infarction -valvular heart disease -atrial fibrillation (Range: 2.0-3.0) Mechanical prosthetic valves: (Range: 2.5-3.5) Shahrzad Lombardi [facility] POINT OF CARE TEST DOCKED DEVICE UNSOLICITED RESULTS [facility] [address] [place] [id number] documented in this encounter Visit Diagnoses Diagnosis PAF (paroxysmal atrial fibrillation) (HCC)- Primary Atrial fibrillation Anticoagulation management encounter Encounter for therapeutic drug monitoring Anticoagulant long-term use Long-term (current) use of 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s 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
--- OUTSIDE RECORDS SUMMARY | 2023-10-30 12:10 | External Medical Summary | Summary of Care ---
Author Name Unknown Organization [facility] Address [address] [place] [address] Phone [phone] Care Team Providers Care Bee Farmer Name Role Phone Arun Alexandre MD Primary Care Provider Reason for Visit * Reason Comments Dosage Adjustment In Person (Anticoag Cl inic) Encounter Details Date Type Department Care Team (Latest Contact Info) Description 07/16/2023 1:50 PM [facility] Anticoagulation Pharmacy, [address] [place] [address] [place] [address] PAF (paroxysmal atrial fibrillation) ([facility])*; Anticoagulation management encounter; Anticoagulant long-term use; 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 180 Each 3 05/16/2021 Active Spiriva Respimat 2.5 MCG/ACT Inhalation Aerosol SolutionIndications: COPD, group D, by GOLD 2017 classification ([facility]) Take 2 puffs once daily 12 g 3 05/16/2021 Active Montelukast Sodium 10 MG Oral Tablet (Singulair)Indicatio ns:COPD, group D, by GOLD 2017 classification ([facility]) Take 1 Tab by mouth every evening. 90 Tab 3 05/16/2021 Active Fluticasone Propionate 50 MCG/ACT Nasal Suspension (Flonase)Indications :COPD, group D, by GOLD 2017 classification ([facility]) Administer 2 Sprays into nostril [...] COPD, group D, by GOLD 2017 classification ([facility]),SOB (shortness of breath) Inhale 2 Puffs by mouth every 6 hours as needed for Shortness of Breath or Wheezing. 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 Medication Therapy Disease Management - Anticoagulation Patient: Dru Galvan | : 1940 Subjective Patient-Reported Symptoms: Patient Findings Negatives: Signs/symptoms of thrombosis, Signs/symptoms of bleeding, Change in health, Change in alcohol use, Change in activity, Upcoming invasive procedure, Missed doses, Extra doses, Change in medications, Change in diet/appetite, Bruising Objective Current Warfarin Dose As of 07/16/2023 Warfarin maintenance plan: 5 mg (5 mg x 1) every Mon, Wed, Thu; 2.5 mg (5 mg x 0.5) all other days INR Result As of 07/16/2023 INR goal: 2.0-3.0 INR used for dosin.3 (07/16/2023) Assessment & Plan Warfarin Plan As of 07/16/2023 Full warfarin instructions: 07/16: Hold; Otherwise 5 mg every Mon, Fri; 2.5 mg all other days Next INR check: 07/30/2023 Repeat PT/INR in 2 week(s) Weekly dose: decreased 10% Additional Dosing Information: Yanique Mccarthy [facility] Clinical Pharmacist 07/16/2023, 1:33 PM documented in this encounter Plan of Treatment Upcoming Encounters Date Type Department Care Team (Late st Contact Info) Description 07/28/2023 10:00 AM EST Office Visit Cardiology [address] [place] [address] Nils Webb PA-C [address] [place] [address] 07/30/2023 2:00 PM EST Anticoagulation Pharmacy, [address] [place] [address] [place] [address] 08/24/2023 8:20 AM EST Office Visit Dermatology [address] [place] [address] Kay Haney PA-C [address] [place] [address] [place] [address] Health Maintenance Due Date Last Done Comments [...] Comments INR FINGERSTICK, POINT OF CARE Routine 07/16/2023 1:40 PM EST PAF (paroxysmal atrial fibrillation) (HCC) Anticoagulation management encounter Anticoagulant long-term use shelter current use of 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 therapy documented in this encounter Results * INR FINGERSTICK, POINT OF CARE (07/16/2023 1:40 PM EST) Fingerstick INR 3.3 INR 3 1:47 PM EST [facility] Blood 07/16/2023 1:40 PM EST 07/16/2023 1:47 PM EST Narrative [facility] - 07/16/2023 1:47 PM EST Therapeutic ranges for non-operative patients: Prophylaxsis/treatment of DVT: (Range:2.0-3.0) Treatment of pulmonary embolism:(Range:2.0-3.0) Prevention of systemic embolism from: -tissue heart valves -acute myocardial infarction -valvular heart disease -atrial fibrillation (Range: 2.0-3.0) Mechanical prosthetic valves: (Range: 2.5-3.5) Shahrzad Lombardi [facility] LAB POINT OF CARE TEST DOCKED DEVICE UNSOLICITED RESULTS [facility] [address] [place] [phone] documented in this encounter Visit Diagnoses Diagnosis PAF (paroxysmal atrial fibrillation) (HCC)- Primary Atrial fibrillation Anticoagulation management encounter Encounter for therapeutic drug monitoring Anticoagulant long-term use Long-term (current) use of 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s shelter current use of 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 therapy documented in this encounter Care Teams Bee Farmer Relationship Specialty Start Date End Date Arun Alexandre MD [address] [place] [address] PCP - General Family Medicine 05/17/18 documented as of this encounter"
--- OUTSIDE RECORDS SUMMARY | 2023-10-30 12:10 | External Medical Summary | Summary of Care ---
Author Name Unknown Organization [facility] Address [address] [place] [address] Phone [phone] Care Team Providers Care Tariff Counsel Name Role Phone Arun Alexandre MD Primary Care Provider [phone] Reason for Visit * Reason Onset Date Comments Medication Refill 06/29/2023 Encounter Details Date Type Department Care Team (Late st Contact Info) Description 06/29/2023 Telephone Cardiology, [facility] [address] [place] [id number] Nils Webb PA-C [address] [place] [address] Medication Refill Allergies Active Allergy Reactions Criticality Noted Date Comments Isosorbide Nitrate 05/07/2021 Headache Pollen Other (Please comment) 01/17/2014 Runny nose, itchy eyes, nasal congestion documented as of this encounter (statuses as of 06/29/2023) Medications Medication Sig Dispensed Refills Start Date [...] D, by GOLD 2017 classification ([facility]) Inhale 1 Puff by mouth 2 times a day. 180 Each 3 05/16/2021 Active Spiriva Respimat 2.5 MCG/ACT Inhalation Aerosol SolutionIndications: COPD, group D, by GOLD 2017 classification ([facility]) Take 2 puffs once daily 12 g 3 05/16/2021 Active Montelukast Sodium 10 MG Oral Tablet (Singulair)Indicatio ns:COPD, group D, by GOLD 2017 classification ([facility]) Take 1 Tab by mouth every evening. 90 Tab 3 05/16/2021 Active Fluticasone Propionate 50 MCG/ACT Nasal Suspension (Flonase)Indications :COPD, group D, by GOLD 2017 classification ([facility]) Administer 2 Sprays into nostril daily. 16 [...] in the morning. 25 mcg. 0 Active ProAir HFA 108 (90 Base) MCG/ACT Inhalation Aerosol Solution Inhale by mouth 2 Puffs every 6 hours as needed for Shortness of Breath or Wheezing. 18 g 3 01/06/2022 Active Mupirocin 2 % External Ointment (Bactroban) [...] every evening. 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 Transferred to speciality line. Thank you, Melinda Giles Nca Certified [facility] ([facility]) (formerly Telepharmacy) 06/29/2023, 10:10 AM documented in this encounter Plan of Treatment Upcoming Encounters Date Type Department Care Team (Late st Contact Info) Description 07/03/2023 7:00 AM EST Anticoagulation Pharmacy, [address] [place] [address] [place] [address] 07/28/2023 10:00 AM EST Office Visit Cardiology [address] [place] [address] Nils Webb PA-C [address] [place] [address] 08/24/2023 8:20 AM EST Office Visit Dermatology [address] [place] [address] Kay Haney PA-C [address] [place] [address] [place] [address] Health Maintenance Due Date Last Done Comments [...] filedocumented as of this encounter Care Teams Tariff Counsel Relationship Specialty Start Date End Date Arun Alexandre MD [address] [place] [address] PCP - General Family Medicine 05/17/18 documented as of this encounter
--- OUTSIDE RECORDS SUMMARY | 2023-10-30 12:10 | External Medical Summary | Summary of Care ---
Author Name Unknown Organization [facility] Address [address] [place] [address] Phone [phone] Care Team Providers Care Banking Attorney Name Role Phone Arun Alexandre MD Primary Care Provider [phone] Reason for Visit * Reason Comments Outpatient Testing Encounter Details Date Type Department Care Team (Late st Contact Info) Description 07/02/2023 2:10 PM EST Laboratory Laboratory [address] [place] [phone] [place] [address] PAF (paroxysmal atrial fibrillation) ([facility]); Anticoagulation management encounter; Anticoagulant long-term use; assisted current use of 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 therapy Allergies Active Allergy Reactions Criticality Noted Date Comments Isosorbide Nitrate 05/07/2021 Headache Pollen Other (Please comment) 01/17/2014 Runny nose, itchy eyes, nasal congestion documented as of this encounter (statuses as of 07/02/2023) Medications Medication Sig Dispensed Refills Start Date [...] as of this encounter (statuses as of 07/02/2023) Active Problems Problem Noted Date Diagnosed Date [...] squamous cell carcinoma (L lateral forehead, L methodist 07/05), 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, R dorsal hand, R scalp 2018, L dorsal wrist 06/07), basal cell carcinoma (L forearm, L preauricular region 09/2019) AK (actinic keratosis) 05/24/2014 Overview: Efudex 04/2014 documented as of this encounter (statuses as of 07/02/2023) Resolved Problems Problem Noted Date Diagnosed Date Resolved Date 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 methodist 07/01/2019 09/28/2019 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 01/26/2019 09/28/2019 COPD, severe 06/07/2018 02/28/2021 Overview: Per COPD GOLD Classification SCC (squamous cell carcinoma), face 05/03/2014 06/13/2015 Overview: L lateral forehead documented as of this encounter (statuses as of 07/02/2023) Immunizations Name Administration Dates Next Due SEASONAL [...] Description 07/03/2023 7:00 AM EST Anticoagulation Pharmacy, [address] [place] [id number] [place] [address] 07/28/2023 10:00 AM EST Office Visit Cardiology [address] [place] [address] Nils Webb PA-C [address] [place] [address] 08/24/2023 8:20 AM EST Office Visit Dermatology [address] [place] [address] Kay Haney PA-C [address] [place] [address] [place] [address] Pending Results Name Type Priority Associated Diagnoses Date /Time PT INR Lab Routine PAF (paroxysmal atrial fibrillation) (HCC) Anticoagulation management encounter 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
--- OUTSIDE RECORDS SUMMARY | 2023-10-30 12:10 | External Medical Summary | Summary of Care ---
Author Name Unknown Organization [facility] Address [address] [place] [address] Phone [phone] Care Team Providers Care Vehicle Assembly Inspector Name Role Phone Arun Alexandre MD Primary Care Provider [phone] Reason for Visit * Reason Comments Dosage Adjustment In Person (Anticoag Cl inic) Encounter Details Date Type Department Care Team (Latest Contact Info) Description 06/18/2023 2:10 PM EDT Anticoagulation Pharmacy, [address] [place] [address] [place] [address] PAF (paroxysmal atrial fibrillation) ([facility])*; Anticoagulation management encounter; Anticoagulant long-term use; care home current use of 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 therapy Allergies Active Allergy Reactions Criticality Noted Date Comments Isosorbide Nitrate 05/07/2021 Headache Pollen Other (Please comment) 01/17/2014 Runny nose, itchy eyes, nasal congestion documented as of this encounter (statuses as of 06/18/2023) Medications Medication Sig Dispensed Refills Start Date [...] OPD, group D, by GOLD 2017 classification ([facility]) Inhale 1 Puff by mouth 2 times a day. 180 Each 3 05/16/2021 Active Spiriva Respimat 2.5 MCG/ACT Inhalation Aerosol SolutionIndications: COPD, group D, by GOLD 2017 classification ([facility]) Take 2 puffs once daily 12 g 3 05/16/2021 Active Montelukast Sodium 10 MG Oral Tablet (Singulair)Indicatio ns:COPD, group D, by GOLD 2017 classification ([facility]) Take 1 Tab by mouth every evening. 90 Tab 3 05/16/2021 Active Fluticasone Propionate 50 MCG/ACT Nasal Suspension (Flonase)Indications :COPD, group D, by GOLD 2017 classification ([facility]) Administer 2 Sprays into nostril daily. 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, R dorsal hand, R scalp 2019, L dorsal wrist 06/07), basal cell carcinoma (L forearm, L preauricular region 09/2019) AK (actinic keratosis) 05/24/2014 Overview: Efudex 04/2014 documented as of this encounter (statuses as of 06/18/2023) Resolved Problems Problem Noted Date Diagnosed Date Resolved Date 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sm 07/01/2019 09/28/2019 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 Medication Therapy Disease Management - Anticoagulation Patient: Dru Galvan | : 1940 Patient presents with son Subjective Patient-Reported Symptoms: Patient Findings Negatives: Signs/symptoms of thrombosis, Signs/symptoms of bleeding, Change in health, Change in alcohol use, Change in activity, Upcoming invasive procedure, Missed doses, Extra doses, Change in medications, Change in diet/appetite, Bruising Objective Current Warfarin Dose As of 06/18/2023 Warfarin maintenance plan: 5 mg (5 mg x 1) every Mon, Fri; 2.5 mg (5 mg x 0.5) all other days INR Result As of 06/18/2023 INR goal: 2.0-3.0 INR used for dosin.9 (06/18/2023) Assessment & Plan Warfarin Plan As of 06/18/2023 Full warfarin instructions: 5 mg every Mon, Wed, Fri; 2.5 mg all other days Next INR check: 06/25/2023 Repeat PT/INR in 1 week(s) Weekly dose: increased Additional Dosing Information: Yanique Mccarthy [facility] Clinical Pharmacist 06/18/2023, 2:06 PM documented in this encounter Plan of Treatment Upcoming Encounters Date Type Department Care Team (Late st Contact Info) Description 06/25/2023 2:40 PM EST Anticoagulation Pharmacy, [address] [place] [address] [place] [address] 07/28/2023 10:00 AM EST Office Visit Cardiology [address] [place] [address] Nils Webb PA-C [address] [place] [address] 08/24/2023 8:20 AM EST Office Visit Dermatology [address] [place] [address] Kay Haney PA-C [address] [place] [address] [place] [address] Health Maintenance Due Date Last Done Comments [...] Comments INR FINGERSTICK, POINT OF CARE Routine 06/18/2023 2:11 PM EDT PAF (paroxysmal atrial fibrillation) (HCC) Anticoagulation management encounter Anticoagulant long-term use 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0-3.0) Mechanical prosthetic valves: (Range: 2.5-3.5) Shahrzad Lombardi [facility] POINT OF CARE TEST DOCKED DEVICE UNSOLICITED RESULTS [facility] [address] [place] [id number] documented in this encounter Visit Diagnoses Diagnosis PAF (paroxysmal atrial fibrillation) (HCC)- Primary Atrial fibrillation Anticoagulation management encounter Encounter for therapeutic drug monitoring Anticoagulant long-term use Long-term (current) use of 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s buttermaker helper current use of 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 therapy documented in this encounter Care Teams Vehicle Assembly Inspector Relationship Specialty Start Date End Date Arun Alexandre MD [address] [place] [address] PCP - General Family Medicine 05/17/18 documented as of this encounter"
--- OUTSIDE RECORDS SUMMARY | 2023-10-30 12:10 | External Medical Summary ---
Author Name Unknown Address Unknown Organization : Laboratory Report Ordering Provider Test Date Status YARIEL ALFORD 07/30/2023 14:00:55 Final Therapeutic ranges for non-o perative patients:
Prophylaxsis/treatment of DVT: (Range:2.0-3.0)
Treatment of pulmonary embolism:(Range:2.0-3.0)
Prevention of systemic embolism from:
-tissue heart valves
-acute myocardial infarction
-valvular heart disease
-atrial fibrillation
(Range: 2.0-3.0)
Mechanical prosthetic valves: (Range: 2.5-3.5) Observation Date Value Abnormality Reference (Units ) Status INR in Capillary blood by Coagulation assay 07/30/2023 14:00:55 2.5 (INR) Final Performing Location
--- OUTSIDE RECORDS SUMMARY | 2023-10-30 12:10 | External Medical Summary | Summary of Care ---
Author Name Unknown Organization [facility] Address [address] [place] [address] Phone [phone] Care Team Providers Care Child Development Teacher Name Role Phone Arun Alexandre MD Primary Care Provider [phone] Reason for Visit * Reason Comments Follow Up 2 month follow up. M ore noticeable SOB. Denies chest pain, palpitations, dizziness and edema. Encounter Details Date Type Department Care Team (Late st Contact Info) Description 07/28/2023 10:00 AM EST Office Visit Cardiology [address] [place] [address] Nils Webb PA-C [address] [place] [address] HTN, goal below 140/90*; PAF (paroxysmal atrial fibrillation) ([facility]); Dyslipidemia, goal LDL below 70; Chronic diastolic heart failure ([facility]); Chronic respiratory failure with hypoxia ([facility]); ILD (interstitial lung disease) ([facility]) Allergies Active Allergy Reactions Criticality Noted Date Comments Isosorbide Nitrate 05/07/2021 Headache Pollen Other (Please comment) 01/17/2014 Runny nose, itchy eyes, nasal congestion documented as of this encounter (statuses as of 07/28/2023) Medications Medication Sig Dispensed Refills Start Date [...] as of this encounter (statuses as of 07/28/2023) Active Problems Problem Noted Date Diagnosed Date [...] squamous cell carcinoma (L lateral forehead, L evangelical 07/05), 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, R dorsal hand, R scalp 2018, L dorsal wrist 06/07), basal cell carcinoma (L forearm, L preauricular region 09/2019) AK (actinic keratosis) 05/24/2014 Overview: Efudex 04/2014 documented as of this encounter (statuses as of 07/28/2023) Resolved Problems Problem Noted Date Diagnosed Date Resolved Date 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 evangelical 07/01/2019 09/28/2019 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 01/26/2019 09/28/2019 COPD, severe 06/07/2018 02/28/2021 Overview: Per COPD GOLD Classification SCC (squamous cell carcinoma), face 05/03/2014 06/13/2015 Overview: L lateral forehead documented as of this encounter (statuses as of 07/28/2023) Immunizations Name Administration Dates Next Due Seasonal [...] Sign Reading Time Taken Comments Blood Pressure 138/72 07/28/2023 9:51 AM EST Pulse 88 07/28/2023 9:51 AM EST Temperature - - Respiratory Rate 18 07/28/2023 9:51 AM EST Oxygen Saturation - - Inhaled Oxygen Concentration - - Weight 76.7 kg (169 lb) 07/28/2023 9:51 AM EST Height - - Body Mass Index 24.25 05/16/2021 11:28 AM EDT documented in this encounter Progress Notes * Nils Webb PA-C - 07/28/2023 9:53 AM EST History of Present Illness: Dru Galvan is a very pleasant 82 year old male followed by Dr. Lombardo, here today for routine cardiology evaluation. Patient last evaluated in this office by Dr. Lombardoon May 22, 2023, last seen by the undersigned on January 20, 2023 Patient hospitalized at [facility] in March 2023 with food bolus impaction and choking with spontaneous resolve though with acute marked respiratory failure, lapsing into atrial fibrillation with RVR in the setting of the acute respiratory failure and withdrawal of beta-harpreet therapy. Eliquis prescribed though cost prohibitive (and above the income cutoff for P[employer]/Pacen[employer]), switched to Coumadin anticoagulation which is being monitored by the [facility] in [place]. Accompanied by daughter who is an [employer] SE[employer]ER that works at [employer]. Dyspnea may be more notable than previously Cost of Spiriva increased recently,? dinora palma To see Pulmonary Medicine in early August 2023 No chest pain or discomfort. Patient does note occasional palpitations when getting up to use the restroom at night, nothing concerning or significant, not throughout the day. Heart rates occasionally elevated to the low 100s onhome blood pressure monitoring. Blood pressure is well controlled on home monitoring with all systolic readings between the 1 teens and 140 range. Fluid has been well controlled, currently taking furosemide 2 to 3 days per week. No orthopnea or PND. No abrupt weight change. No positional dizziness or lightheadedness. No near syncope or syncope. No epistaxis, hemoptysis, melena, hematochezia, or hematuria. 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 Pulmonary hypertension. Frequent atrial and ventricular ectopy Paroxysmal atrial fibrillation 1st observed when hospitalized at [facility] in March 2023 Hypertension. Hyperlipidemia. Familial history of premature coronary disease. Review of patient's allergies indicates: Allergen Reactions Imdur [Isosorbide Nitrate] Headache Pollen Other (Please comment) Runny nose, itchy eyes, nasal congestion Current Outpatient Medications Medication Sig Dispense Refill CENTRUM SILVER PO TABS once daily Multiple Vitamins-Minerals (PRESERVISION/LUTEIN) Capsule Take 2 Capsules by mouth in the morning. oxygen GAS Use 2 L/min(Oxygen) as directed daily. Magnesium Oxide 400 MG Capsule Take 1 Cap by mouth daily. 34 Cap 11 diphenhydrAMINE HCl (BENADRYL) 12.5 MG/5ML liquid Take 10 mL by mouth 4 times a day as needed for Rhinitis. Fluticasone-Salmeterol 250-50 MCG/DOSE Inhalation Aerosol Powder Breath [...] Sprays into nostril daily. 16 g 3 guaiFENesin ER 600 MG Oral Tablet Extended Release 12 Hour Take 1 Tablet by mouth in the morning. D3 50 MCG (2000 UT) Oral Tablet (Cholecalciferol) Take 1 Tablet by mouth in the morning. 25 mcg. Furosemide 20 MG Oral Tablet (Lasix) TAKE 1 TABLET BY MOUTH DAILY 5 DAYS PER WEEK (Patient taking differently: Using as needed) 65 Tablet 3 Spironolactone 25 MG Oral Tablet (Aldactone) TAKE ONE-HALF TABLET BY MOUTH IN THE MORNING 45 Tablet3 Atorvastatin Calcium 10 MG Oral Tablet (Lipitor) [...] of Breath or Wheezing. 18 g 3 ASPIRIN 81 MG PO TABS once daily dutasteride (AVODART) 0.5 MG Capsule Take 1 Capsule by mouth in the morning. (Patient not taking: Reported on 05/12/2023) Omeprazole 20 MG Oral Capsule Delayed Release (PriLOSEC) Take 1 Cap by mouth daily as needed for Heartburn. 90 Cap 3 Mupirocin 2 % External Ointment (Bactroban) Apply to wound on left wrist daily (Patient not taking:Reported on 10/14/2022) 22 g 0 No current facility-administered medications for this visit. OBJECTIVE/PHYSICAL EXAMINATION: BP 138/72 | Pulse 88 | Resp 18 | Wt 76.7 kg (169 lb) | BMI 24.25 kg/m | BSA 1.95 m General: A&Ox3. NAD. Hard of hearing. HENT: Normocephalic. Atraumatic. Eyes: PER. Conjunctiva pink, sclera clear. No carotid bruits. No JVD. No HJR. Heart: Distant heart sounds. Irregularly irregular at 88 bpm. No murmurs appreciated. Lungs: Markedly diminished. Poor air exchange. Scattered wheeze. Abdomen: +BS. Soft. Nontender. No masses or organomegaly. Extremities: No edema. No clubbing. No cyanosis. Limited neurological examination is without focal deficits. Pulses: radial=2/4, posterior tibial=1/4. Data: Diagnostic cardiac catheterization performed by Dr. Lombardo at [facility] on February 20, 2016 demonstrated right-dominant coronary [...] valve disease noted. Mild pulmonary hypertension noted. May 11, 2020 Coronary Angiography ([facility], Dr. Lombardo): Right dominant coronary [...] saturation 73% on 2 L nasal cannula May 01, 2020 TTE Interpretation Summary (as per Dr. Jordan): The left ventricular cavity size is normal. The LV wall thickness is mildly increased (concentric). The left ventricular wall motion is normal. The qualitative LV ejection fraction is 55-59% (normal). The left ventricular diastolic function is mildly abnormal (grade I). The right ventricular systolic function is normal as assessed by tricuspid annular plane systolic excursion (TAPSE) (normal >1.7 cm). The left atrium is normalsized. The right atrial size is normal. Mild aortic valve regurgitation is present. Mild tricuspid regurgitation is now present. Mild mitral regurgitation is present. The estimated pulmonary artery systolic pressure is 50 mm Hg. December 2021 Zio Monitor: Patient had a [...] rare (<1.0%). Isolated VEs were frequent (5.9%, 42900), VE Couplets were rare (<1.0%, 2612), and VE Triplets were rare (<1.0%, 94). Ventricular Bigeminy and Trigeminy were present. No sustained arrhythmias. Frequent ventricular ectopy including 12 salvos of nonsustained ventricular tachycardia lasting up to 11 seconds. Occasional salvos of PSVT lasting upwards of21 seconds. No symptoms reported. April 09, 2023 TTE interpretation summary ([facility], Dr. Mcgrath): Compared to the study dated June 08, 2016, the estimated systolic pulmonary pressure has increased. EF 60 to 65%. Mild concentric LVH. Grade 1 diastolic dysfunction. Moderate aortic valve sclerosis without significant stenosis. Mild aortic regurgitation. Mild mitral and tricuspid regurgitation. Estimated PASP 46 mmHg. Laboratory work from May 22, 2023 reviewed. TSH normal, 1.56. CBC all within normal range. LDL cholesterol elevated above goal at 83 mg/dL. IMPRESSION: 82-year-old male with severe oxygen dependent COPD, emphysematous lung disease. Cardiaccatheterization on 05/11/2020 revealed heavily calcified, diffuse, moderate ostial to mid LAD disease that was borderline significant by FFR (0.80); medical management recommended unless symptoms become refractory with future PCI considered to be increased risk, likely requiring arthrectomy and stenting of a long segment of the LAD. Patient without overt angina, requesting conservative management.PAF is relatively asymptomatic with patient prescribed Coumadin anticoagulation without significantbleeding issues. Volume status is compensated. Blood pressures are well controlled. Prior use of Imdur notably poorly tolerated. Options of management discussed. Will continue current therapies as prescribed. Patient wishes to defer Zio monitoring at this time (+ prior skin irritation) though will reconsider at follow-up. Routine cardiology follow-up in 6 months or as needed. ER with emergencies. Nils Webb PA-C Department of Cardiology I spent a total of 30-39 minutes (exact time 36 mins) on the date of service in preparation, delivery, and documentation of the care provided to Dru Galvan excluding any time spent in the performance of separately billed services. This chart was completed in part utilizing [employer] Speech Voice Recognition Software. Grammatical errors, random [...] documented in this encounter Nursing Notes * Siva Samuel LPN - 07/28/2023 9:50 AM EST Patient identified by full name and date of Chief Complaint Patient presents with Follow Up 2 month follow up. More noticeable SOB. Denies chest pain, palpitations, dizziness and edema. Examination Room: 3 Name: Dru Galvan Date of : (1940). Reason for Visit: 2 month follow up Interim Hospitalization(s): [facility] 04/05-04/14/23 Problems/Concerns: See chief complaint Chest Pain/SOB: See chief complaint [facility] Discussed: Not applicable [employer] [facility] is a way you can talk to your provider online through e-mail. Would you like to sign up? I can activate it for you? ALREADY ACTIVE Patient was instructed to not get up on the exam table until directed and assisted by their provider; patient is to remain seated in the chair/ wheelchair/ exam table for fall prevention and safety reasons. Patient is aware to have assistance to step down off exam table with personnel. Patient voiced full comprehension of instructions. documented in this encounter Plan of Treatment Upcoming Encounters Date Type Department Care Team (Late st Contact Info) Description 07/30/2023 2:00 PM EST Anticoagulation Pharmacy, [address] [place] [address] [place], [address] [place] [address] 08/24/2023 8:20 AM EST Office Visit Dermatology [address] [place] [address] Kay Haney PA-C [address] [place] [address] [place] [address] Health Maintenance Due Date Last Done Comments [...] as of this encounter Visit Diagnoses Diagnosis HTN, goal below 140/90- Primary Unspecified essential hypertension PAF (paroxysmal atrial fibrillation) (HCC) Atrial fibrillation Dyslipidemia, goal LDL below 70 Other and unspecified hyperlipidemia Chronic diastolic heart failure (HCC) Chronic diastolic heart failure Chronic respiratory failure with hypoxia (HCC) Chronic respiratory failure ILD (interstitial lung disease) (HCC) Postinflammatory pulmonary fibrosis documented in this encounter Care Teams Child Development Teacher Relationship Specialty Start Date End Date Arun Alexandre MD [address] [place] [address] PCP - General Family Medicine 05/17/18 documented as of this encounter"
--- OUTSIDE RECORDS SUMMARY | 2023-10-30 12:10 | External Medical Summary | Summary of Care ---
Author Name Unknown Organization [facility] Address [address] [place] [address] Phone [phone] Care Team Providers Care Business Analysis Specialist Name Role Phone Arun Alexandre MD Primary Care Provider [phone] Reason for Visit * Reason Comments Dosage Adjustment Via Phone (anticoag Cl inic) Encounter Details Date Type Department Care Team (Latest Contact Info) Description 07/03/2023 7:00 AM [facility] Anticoagulation Pharmacy, [address] [place] [address] [place] [address] PAF (paroxysmal atrial fibrillation) ([facility])*; Anticoagulation management encounter; Anticoagulant long-term [...] D, by GOLD 2017 classification ([facility]) Inhale 1 Puff by mouth 2 times a day. 180 Each 3 05/16/2021 Active Spiriva Respimat 2.5 MCG/ACT Inhalation Aerosol SolutionIndications: COPD, group D, by GOLD 2017 classification ([facility]) Take 2 puffs once daily 12 g 3 05/16/2021 Active Montelukast Sodium 10 MG Oral Tablet (Singulair)Indicatio ns:COPD, group D, by GOLD 2017 classification ([facility]) Take 1 Tab by mouth every evening. 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 - 07/03/2023 8:16 AM EST Medication Therapy Disease Management - Anticoagulation Patient: Dru Galvan | : 1940 Subjective Contacts Type Contact Phone/Fax 07/03/2023 09:06 AM EST Phone (Outgoing) Dru Galvan (Self) [phone] (M) No Answer/Busy - mailbox full 07/03/2023 09:06 AM EST Phone (Outgoing) Dru Galvan (Self) [phone] (M) Spoke to Patient Patient-Reported Symptoms: Patient Findings Negatives: Signs/symptoms of thrombosis, Signs/symptoms of bleeding, Change in health, Change in alcohol use, Change in activity, Upcoming invasive procedure, Missed doses, Extra doses, Change in medications, Change in diet/appetite, Bruising Objective Current Warfarin Dose As of 07/03/2023 Warfarin maintenance plan: 5 mg (5 mg x 1) every Mon, Wed, Fri; 2.5 mg (5 mg x 0.5) all other days INR Result As of 07/03/2023 INR goal: 2.0-3.0 INR used for dosin.8 (07/02/2023) Assessment & Plan Warfarin Plan As of 07/03/2023 Full warfarin instructions: 5 mg every Mon, Wed, Fri; 2.5 mg all other days No change documented: Shahrzad Lombardi RPh Next INR check: 07/16/2023 Repeat PT/INR in 2 week(s) Weekly dose: not changed Additional Dosing Information: Shahrzad Lombardi RPh Clinical Pharmacist 07/03/2023, 8:20 AM documented in this encounter Plan of Treatment Upcoming Encounters Date Type Department Care Team (Late st Contact Info) Description 07/16/2023 1:50 PM EST Anticoagulation Pharmacy, [address] [place] [address] [place] [address] 07/28/2023 10:00 AM EST Office Visit Cardiology [address] [place] [address] Nils Webb PA-C [address] [place] [address] 08/24/2023 8:20 AM EST Office Visit Dermatology [address] [place] [address] Kay Haney PA-C [address] [place] [address] [place] [address] Health Maintenance Due Date Last Done Comments [...] 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s documented in this encounter Care Teams Business Analysis Specialist Relationship Specialty Start Date End Date Arun Alexandre MD [address] [place] [address] PCP - General Family Medicine 05/17/18 documented as of this encounter"
--- OUTSIDE RECORDS SUMMARY | 2023-10-30 12:10 | External Medical Summary | Summary of Care ---
Author Name Unknown Organization [facility] Address [address] [place] [address] Phone [phone] Care Team Providers Care Pet Technologist Name Role Phone Arun Alexandre MD Primary Care Provider [phone] Reason for Visit * Reason Onset Date Comments Referral 07/02/2023 Encounter Details Date Type Department Care Team (Late st Contact Info) Description 07/02/2023 Telephone Pharmacy, [address] [place] [address] [place] [address] Referral Allergies Active Allergy Reactions Criticality Noted Date [...] group D, by GOLD 2017 classification ([facility]) Inhale 1 Puff by mouth 2 times a day. 180 Each 3 05/16/2021 Active Spiriva Respimat 2.5 MCG/ACT Inhalation Aerosol SolutionIndications: COPD, group D, by GOLD 2017 classification ([facility]) Take 2 puffs once daily 12 g 3 05/16/2021 Active Montelukast Sodium 10 MG Oral Tablet (Singulair)Indicatio ns:COPD, group D, by GOLD 2017 classification ([facility]) Take 1 Tab by mouth every evening. 90 Tab 3 05/16/2021 Active Fluticasone Propionate 50 MCG/ACT Nasal Suspension (Flonase)Indications :COPD, group D, by GOLD 2017 classification ([facility]) Administer 2 Sprays into nostril daily. 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 Unfortunately, we currently do not have a testing solution at [facility] since our pharmacogenomics testing vendor closed very recently. It will likely be several months before a new solution is implemented. Due to this, there are currently no options to receive this testing at [facility]. Any pharmacogenomics questions or concerns may be addressed through the "Drug- gene interactions (pharmacy)" Ask-A-Doc category. Sincerely, Rajeev Oquendo PharmD Pharmacogenomics Specialist * Telephone Encounter - Carola Oakley CPhT - 07/02/2023 12:15 PM EST Comments Pharmacist Medication Therapy Management: Minimum frequency patient should be seen in person for medication management: as appropriate per clinical condition and patient status By my signature, I understand that my patient Dru Galvan will have his medication therapy managed by the [facility] ([facility]) per established policies, procedures, and protocols. I also certify that this referral may serve as an initiation of service for the management of drug therapy in the above noted patient. [facility] providers will be responsible for scheduling patient visits, obtaining appropriate laboratory studies, and adjusting medication management therapy per patient's need, in addition to those roles spelled out in the clinic policy, procedures, and drug management protocols. I understand that the service provided by the [facility] Clinic is voluntary and have informed patient that they can refuse the service at their discretion. I am aware that the [facility] Clinic will provide me with a copy of the patient encounter via my [employer]. I authorize the [facility] Clinic to carry out these activities on my behalf. I consider this program to be a necessary part of the patient's medical care. Martin Lombardo MD Order Specific Questions Referral Priority Within 10 days (routine) Where should this appointment be scheduled? [facility]. [facility] Department: Specialist Specialty: Pharmacogenomics Reason for Referral: Other documented in this encounter Plan of Treatment Upcoming Encounters Date Type Department Care Team (Late st Contact Info) Description 07/03/2023 7:00 AM EST Anticoagulation Pharmacy, [address] [place] [address] [place] [address] 07/28/2023 10:00 AM EST Office Visit Cardiology [address] [place] [address] Nils Webb PA-C [address] [place] [address] 08/24/2023 8:20 AM EST Office Visit Dermatology [address] [place] [address] Kay Haney PA-C [address] [place] [address] [place] [address] Health Maintenance Due Date Last Done Comments Pneumococcal Vaccine: 65+ Years (1 - PCV) 1946 Depression Screening 1953 Albumin/Creatinine Ratio 1959 DTaP,Tdap,and Td Vaccines (1 - Tdap) 1960 Zoster Vaccines (1 of 2) 1991 *ADVANCE DIRECTIVE NOT ON FILE 05/13/2020 GFR 01/06/2023 01/06/2022, 0903/2020, 05/02/2019, Additional history exists COVID-19 Vaccine (2022- [...] filedocumented as of this encounter Care Teams Pet Technologist Relationship Specialty Start Date End Date Arun Alexandre MD [address] [place] [address] PCP - General Family Medicine 05/17/18 documented as of this encounter
--- OUTSIDE RECORDS SUMMARY | 2023-10-30 12:10 | External Medical Summary ---
Author Name Unknown Address Unknown Organization : Laboratory Report Ordering Provider Test Date Status YARIEL ALFORD 06/25/2023 14:40:14 Final Therapeutic ranges for non-o perative patients:
Prophylaxsis/treatment of DVT: (Range:2.0-3.0)
Treatment of pulmonary embolism:(Range:2.0-3.0)
Prevention of systemic embolism from:
-tissue heart valves
-acute myocardial infarction
-valvular heart disease
-atrial fibrillation
(Range: 2.0-3.0)
Mechanical prosthetic valves: (Range: 2.5-3.5) Observation Date Value Abnormality Reference (Units ) Status INR in Capillary blood by Coagulation assay 06/25/2023 14:40:14 3.1 (INR) Final Performing Location
--- OUTSIDE RECORDS SUMMARY | 2023-10-30 12:10 | External Medical Summary | Summary of Care ---
Author Name Unknown Organization [facility] Address [address] [place] [address] Phone [phone] Care Team Providers Care Manager Of Recruiting Name Role Phone Arun Alexandre MD Primary Care Provider Reason for Visit * Reason Comments Dosage Adjustment In Person (Anticoag Cl inic) Encounter Details Date Type Department Care Team (Latest Contact Info) Description 06/25/2023 2:40 PM [facility] Anticoagulation Pharmacy, [address] [place] [address] [place] [address] PAF (paroxysmal atrial fibrillation) ([facility]; Anticoagulation management encounter; Anticoagulant long-term use; [facility] current use of 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 therapy Allergies Active Allergy Reactions Criticality Noted Date Comments Isosorbide Nitrate 05/07/2021 Headache Pollen Other (Please comment) 01/17/2014 Runny nose, itchy eyes, nasal congestion documented as of this encounter (statuses as of 06/25/2023) Medications Medication Sig Dispensed Refills Start Date [...] group D, by GOLD 2017 classification ([facility]) Inhale 1 Puff by mouth 2 times a day. 180 Each 3 05/16/2021 Active Spiriva Respimat 2.5 MCG/ACT Inhalation Aerosol SolutionIndications: COPD, group D, by GOLD 2017 classification ([facility]) Take 2 puffs once daily 12 g 3 05/16/2021 Active Montelukast Sodium 10 MG Oral Tablet (Singulair)Indicatio ns:COPD, group D, by GOLD 2017 classification ([facility]) Take 1 Tab by mouth every evening. 90 Tab 3 05/16/2021 Active Fluticasone Propionate 50 MCG/ACT Nasal Suspension (Flonase)Indications :COPD, group D, by GOLD 2017 classification ([facility]) Administer 2 Sprays into nostril daily. 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, R dorsal hand, R scalp 2018, L dorsal wrist 06/07), basal cell carcinoma (L forearm, L preauricular region 09/2019) AK (actinic keratosis) 05/24/2014 Overview: Efudex 04/2014 documented as of this encounter (statuses as of 06/25/2023) Resolved Problems Problem Noted Date Diagnosed Date Resolved Date 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 cheondoism 07/01/2019 09/28/2019 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 01/26/2019 09/28/2019 COPD, severe 06/07/2018 02/28/2021 Overview: Per COPD GOLD Classification SCC (squamous cell carcinoma), face 05/03/2014 06/13/2015 Overview: L lateral forehead documented as of this encounter (statuses as of 06/25/2023) Immunizations Name Administration Dates Next Due SEASONAL [...] this encounter Progress Notes * Yanique Mccarthy, [facility] - 06/25/2023 2:35 PM EST Images from the original note [...] Bruising Objective Current Warfarin Dose As of 06/25/2023 Warfarin maintenance plan: 5 mg (5 mg x 1) every Mon, Wed, Fri; 2.5 mg (5 mg x 0.5) all other days INR Result As of 06/25/2023 INR goal: 2.0-3.0 INR used for dosin.1 (06/25/2023) Assessment & Plan Warfarin Plan As of 06/25/2023 Full warfarin instructions: 5 mg every Mon, Wed, Fri; 2.5 mg all other days No change documented: Yanique Mccarthy RPh Next INR check: 07/02/2023 Repeat PT/INR in 1 week(s) Weekly dose: not changed Additional Dosing Information: Yanique Mccarthy RPh Clinical Pharmacist 06/25/2023, 2:35 PM documented in this encounter Plan of Treatment Upcoming Encounters Date Type Department Care Team (Late st Contact Info) Description 07/03/2023 7:00 AM EST Anticoagulation Pharmacy, [address] [place] [address] [place] [address] 07/28/2023 10:00 AM EST Office Visit Cardiology [address] [place] [address] Nils Webb PA-C [address] [place] [address] 08/24/2023 8:20 AM EST Office Visit Dermatology [address] [place] [address] Kay Haney PA-C [address] [place] [address] [place] [address] Health Maintenance Due Date Last Done Comments [...] Comments INR FINGERSTICK, POINT OF CARE Routine 06/25/2023 2:40 PM EST PAF (paroxysmal atrial fibrillation) (HCC) Anticoagulation management encounter Anticoagulant 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-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 use 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 therapy documented in this encounter Results * INR FINGERSTICK, POINT OF CARE (06/25/2023 2:40 PM EST) Fingerstick INR 3.1 INR 3 2:42 PM EST [facility] Blood 06/25/2023 2:40 PM EST 06/25/2023 2:42 PM EST Narrative [facility] - 06/25/2023 2:42 PM EST Therapeutic ranges for non-operative patients: Prophylaxsis/treatment of DVT: (Range:2.0-3.0) Treatment of pulmonary embolism:(Range:2.0-3.0) Prevention of systemic embolism from: -tissue heart valves -acute myocardial infarction -valvular heart disease -atrial fibrillation (Range: 2.0-3.0) Mechanical prosthetic valves: (Range: 2.5-3.5) Shahrzad Lombardi [facility] POINT OF CARE TEST DOCKED DEVICE UNSOLICITED RESULTS [facility] [address] [place], [place] [id number] documented in this encounter Visit Diagnoses Diagnosis PAF (paroxysmal atrial fibrillation) (HCC)- Primary Atrial fibrillation Anticoagulation management encounter Encounter for therapeutic drug monitoring Anticoagulant long-term use Long-term (current) use of 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s 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
--- OUTSIDE RECORDS SUMMARY | 2023-10-30 12:11 | External Medical Summary ---
Author Name Unknown Address Unknown Organization : Laboratory Report Ordering Provider Test Date Status YARIEL ALFORD 06/01/2023 14:23:31 Final Therapeutic ranges for non-o perative patients:
Prophylaxsis/treatment of DVT: (Range:2.0-3.0)
Treatment of pulmonary embolism:(Range:2.0-3.0)
Prevention of systemic embolism from:
-tissue heart valves
-acute myocardial infarction
-valvular heart disease
-atrial fibrillation
(Range: 2.0-3.0)
Mechanical prosthetic valves: (Range: 2.5-3.5) Observation Date Value Abnormality Reference (Units ) Status INR in Capillary blood by Coagulation assay 06/01/2023 14:23:31 2.6 (INR) Final Performing Location
--- OUTSIDE RECORDS SUMMARY | 2023-10-30 12:11 | External Medical Summary ---
Author Name Unknown Address Unknown Organization : Laboratory Report Ordering Provider Test Date Status YARIEL ALFORD 05/28/2023 14:11:52 Final Therapeutic ranges for non-o perative patients:
Prophylaxsis/treatment of DVT: (Range:2.0-3.0)
Treatment of pulmonary embolism:(Range:2.0-3.0)
Prevention of systemic embolism from:
-tissue heart valves
-acute myocardial infarction
-valvular heart disease
-atrial fibrillation
(Range: 2.0-3.0)
Mechanical prosthetic valves: (Range: 2.5-3.5) Observation Date Value Abnormality Reference (Units ) Status INR in Capillary blood by Coagulation assay 05/28/2023 14:11:52 2.8 (INR) Final Performing Location
--- OUTSIDE RECORDS SUMMARY | 2023-10-30 12:11 | External Medical Summary | Summary of Care ---
Author Name Unknown Organization [facility] Address [address] [place] [address] Phone [phone] Care Team Providers Care Ancillary Specialist Name Role Phone Arun Alexandre MD Primary Care Provider [phone] Reason for Visit * Reason Comments Dosage Adjustment In Person (Anticoag Cl inic) Encounter Details Date Type Department Care Team Description 05/28/2023 Anticoagulation Pharmacy, [address] [place] [address] [place] [address] PAF (paroxysmal atrial fibrillation) ([facility])*; Anticoagulation management encounter; Anticoagulant long-term use; manager terminal current use of 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 therapy Allergies Active Allergy Reactions Severity Noted Date Comments Isosorbide Nitrate 05/07/2021 Headache Pollen Other (Please comment) 01/17/2014 Runny nose, itchy eyes, nasal congestion documented as of this encounter (statuses as of 05/28/2023) Medications Medication Sig Dispensed Refills Start Date [...] as of this encounter (statuses as of 05/28/2023) Active Problems Problem Noted Date Vitamin B deficiency 05/22/2023 Vitamin D deficiency 05/22/2023 Encounter for long-term (current) use of other medications 05/22/2023 Screening for prostate cancer 05/22/2023 PAF (paroxysmal atrial fibrillation) 01/2023 Need for prophylactic vaccination and in oculation against influenza 05/22/2023 Anticoagulation management encounter 01/2023 Anticoagulant long-term use 05/22/2023 PHT (pulmonary hypertension) 05/16/2021 ILD (interstitial lung disease) 05/16/20 21 Chronic respiratory failure with hypoxia 05/16/2021 Chronic diastolic heart failure 05/16/20 21 COPD, group D, by GOLD 2017 classificati on 02/25/2021 Overview: Per COPD GOLD Classification Sebaceous adenoma 01/26/2019 Family history of ischemic heart disease 06/07/2018 Dyslipidemia, goal LDL below 70 06/07/20 18 Nonobstructive atherosclerosis of jackson ry artery 06/07/2018 Ventricular ectopy 06/07/2018 Atrial ectopy 06/07/2018 [...] as of this encounter (statuses as of 05/28/2023) Resolved Problems Problem Noted Date Resolved Date Squamous cell carcinoma of skin of left taoist 1 08/31/2018 09/28/2019 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/26/2019 09/28/2019 COPD, severe 06/07/2018 02/28/2021 Overview: Per COPD GOLD Classification SCC (squamous cell carcinoma), face 05/03/2014 06/13/2015 Overview: L lateral forehead documented as of this encounter (statuses as of 05/28/2023) Immunizations Name Administration Dates Next Due SEASONAL [...] = 0.6 oz pur e alcohol) Sex Assigned at Date Recorded Not on file Job Start Date Occupation Industry Not on file Not on file Not on file documented as of this encounter Progress Notes * Yanique Mccarthy, [facility] - 05/28/2023 2:05 PM EDT Medication Therapy Disease Management - Anticoagulation Patient: Dru Galvan | : 1940 Subjective Patient presents with son Patient-Reported Symptoms: Patient Findings Negatives: Signs/symptoms of thrombosis, Signs/symptoms of bleeding, Change in health, Change in alcohol use, Change in activity, Upcoming invasive procedure, Missed doses, Extra doses, Change in medications, Change in diet/appetite, Bruising Objective Current Warfarin Dose As of 05/28/2023 Warfarin maintenance plan: No maintenance plan INR Result As of 05/28/2023 INR goal: 2.0-3.0 INR used for dosin.8 (05/28/2023) Assessment & Plan Warfarin Plan As of 05/28/2023 Full warfarin instructions: 05/28: 2.5 mg; 05/29: 2.5 mg; 05/30: 5 mg; 05/31: 2.5 mg Next INR check: 06/01/2023 Repeat PT/INR in 4 day(s) Weekly dose: establishing Additional Dosing Information: No ASA/NASAID/Pepto-Bismol: Reviewed ALCOHOL USE: Reviewed NOTIFICATION OF OTHER HEALTH CARE PROVIDER: Reviewed Yanique Mccarthy RPh Clinical Pharmacist 05/28/2023, 2:05 PM documented in this encounter Plan of Treatment Upcoming Encounters Date Type Specialty Care Team Description 06/01/2023 [address]ticoagulation [address] [place] [address] 07/28/2023 Office Visit Cardiology Nils Webb PA-C [address] [place] [address] 08/24/2023 Office Visit Dermatology Kay Haney PA-C [address] [place] [address] [place] [address] Health Maintenance Due Date Last Done Comments [...] Comments INR FINGERSTICK, POINT OF CARE Routine 05/28/2023 2:11 PM EDT PAF (paroxysmal atrial fibrillation) (HCC) Anticoagulation management encounter Anticoagulant long-term use manager terminal current use of 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 therapy documented in this encounter Results * INR FINGERSTICK, POINT OF CARE (05/28/2023 2:11 PM EDT) Fingerstick INR 2.8 INR 2:13 PM EDT [facility] Blood 05/28/2023 2:11 PM EDT 05/28/2023 2:13 PM EDT Narrative [facility] - 05/28/2023 2:13 PM EDT Therapeutic ranges for non-operative patients: Prophylaxsis/treatment of DVT: (Range:2.0-3.0) Treatment of pulmonary embolism:(Range:2.0-3.0) Prevention of systemic embolism from: -tissue heart valves -acute myocardial infarction -valvular heart disease -atrial fibrillation (Range: 2.0-3.0) Mechanical prosthetic valves: (Range: 2.5-3.5) Shahrzad Lombardi [facility] LAB POINT OF CARE TEST DOCKED DEVICE UNSOLICITED RESULTS [facility] [address] [place] [address] documented in this encounter Visit Diagnoses Diagnosis PAF (paroxysmal atrial fibrillation) (HCC)- Primary Atrial fibrillation Anticoagulation management encounter Encounter for therapeutic drug monitoring Anticoagulant long-term use Long-term (current) use of 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s group home current use of 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 therapy documented in this encounter Care Teams Ancillary Specialist Relationship Specialty Start Date End Date Arun Alexandre MD [address] [place] [address] PCP - General Family Medicine 05/17/18 documented as of this encounter"
--- OUTSIDE RECORDS SUMMARY | 2023-10-30 12:11 | External Medical Summary ---
Author Name Unknown Address Unknown Organization : Laboratory Report Ordering Provider Test Date Status YARIEL ALFORD 05/25/2023 10:28:17 Final Therapeutic ranges for non-o perative patients:
Prophylaxsis/treatment of DVT: (Range:2.0-3.0)
Treatment of pulmonary embolism:(Range:2.0-3.0)
Prevention of systemic embolism from:
-tissue heart valves
-acute myocardial infarction
-valvular heart disease
-atrial fibrillation
(Range: 2.0-3.0)
Mechanical prosthetic valves: (Range: 2.5-3.5) Observation Date Value Abnormality Reference (Units ) Status INR in Capillary blood by Coagulation assay 05/25/2023 10:28:17 1.3 (INR) Final Performing Location
--- OUTSIDE RECORDS SUMMARY | 2023-10-30 12:11 | External Medical Summary | Summary of Care ---
Author Name Unknown Organization [facility] Address [address] [place] [address] Phone [phone] Care Team Providers Care Wool Hat Hydraulicker Name Role Phone Arun Alexandre MD Primary Care Provider Reason for Visit * Reason Onset Date Comments Mycode Lab Reorder 05/26/2023 Encounter Details Date Type Department Care Team Description 05/26/2023 Orders Only Outcomes Research Department [address], [place] [id number] Brandy Wiley CHRA MyCode Research Other*[id number]* Allergies Active Allergy Reactions Severity Noted Date Comments Isosorbide Nitrate 05/07/2021 Headache Pollen Other (Please comment) 01/17/2014 Runny nose, itchy eyes, nasal congestion documented as of this encounter (statuses as of 05/26/2023) Medications Medication Sig Dispensed Refills Start Date [...] as of this encounter (statuses as of 05/26/2023) Active Problems Problem Noted Date Vitamin B [...] squamous cell carcinoma (L lateral forehead, L anglican 07/05), 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, R dorsal hand, R scalp 2018, L dorsal wrist 06/07), basal cell carcinoma (L forearm, L preauricular region 09/2019) AK (actinic keratosis) 05/24/2014 Overview: Efudex 04/2014 documented as of this encounter (statuses as of 05/26/2023) Resolved Problems Problem Noted Date Resolved Date Squamous cell carcinoma of skin of left anglican 1 08/31/2018 09/28/2019 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/26/2019 09/28/2019 COPD, severe 06/07/2018 02/28/2021 Overview: Per COPD GOLD Classification SCC (squamous cell carcinoma), face 05/03/2014 06/13/2015 Overview: L lateral forehead documented as of this encounter (statuses as of 05/26/2023) Immunizations Name Administration Dates Next Due SEASONAL [...] as of this encounter Progress Notes * DAVID Osorio - 05/26/2023 2:39 PM EDT MyCode lab reordered. documented in this encounter Plan of Treatment Upcoming Encounters Date Type Specialty Care Team Description 05/28/2023 [facility], [address] [place] [address] 07/28/2023 Office Visit Cardiology Nils Webb PA-C [address] [place] [address] 08/24/2023 Office Visit Dermatology Kay Haney PA-C [address] [place] [address] [place] [address] Scheduled Orders Name Type Priority Associated Diagnoses Orde r Schedule MYCODE SUBSEQUENT ADULT Lab Routine MyCode Research Other*[id number] Every 6 Months for 2 Occurrences starting 05/26/2023 until 06/14/2024 Health Maintenance Due Date Last Done Comments [...] as of this encounter Visit Diagnoses Diagnosis MyCode Research Other*[id number]- Primary documented in this encounter Care Teams Wool Hat Hydraulicker Relationship Specialty Start Date End Date Arun Alexandre MD [address] [place] [address] PCP - General Family Medicine 05/17/18 documented as of this encounter
--- OUTSIDE RECORDS SUMMARY | 2023-10-30 12:11 | External Medical Summary ---
Author Name Unknown Address Unknown Organization : Laboratory Report Ordering Provider Test Date Status YARIEL ALFORD 06/11/2023 13:43:06 Final Therapeutic ranges for non-o perative patients:
Prophylaxsis/treatment of DVT: (Range:2.0-3.0)
Treatment of pulmonary embolism:(Range:2.0-3.0)
Prevention of systemic embolism from:
-tissue heart valves
-acute myocardial infarction
-valvular heart disease
-atrial fibrillation
(Range: 2.0-3.0)
Mechanical prosthetic valves: (Range: 2.5-3.5) Observation Date Value Abnormality Reference (Units ) Status INR in Capillary blood by Coagulation assay 06/11/2023 13:43:06 2.1 (INR) Final Performing Location
--- OUTSIDE RECORDS SUMMARY | 2023-10-30 12:11 | External Medical Summary | Summary of Care ---
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 180 Each 3 05/16/2021 Active Spiriva Respimat 2.5 MCG/ACT Inhalation Aerosol SolutionIndications: COPD, group D, by GOLD 2017 classification ([facility]) Take 2 puffs once daily 12 g 3 05/16/2021 Active Montelukast Sodium 10 MG Oral Tablet (Singulair)Indicatio ns:COPD, group D, by GOLD 2017 classification ([facility]) Take 1 Tab by mouth every evening. 90 Tab 3 05/16/2021 Active Fluticasone Propionate 50 MCG/ACT Nasal Suspension (Flonase)Indications :COPD, group D, by GOLD 2017 classification ([facility]) Administer 2 Sprays into nostril daily. 16 [...] as of this encounter (statuses as of 06/01/2023) Active Problems Problem Noted Date Vitamin B [...] as of this encounter (statuses as of 06/01/2023) Resolved Problems Problem Noted Date Resolved Date Squamous cell carcinoma of skin of left taoist 1 08/31/2018 09/28/2019 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/26/2019 09/28/2019 COPD, severe 06/07/2018 02/28/2021 Overview: Per COPD GOLD Classification SCC (squamous cell carcinoma), face 05/03/2014 06/13/2015 Overview: L lateral forehead documented as of this encounter (statuses as of 06/01/2023) Immunizations Name Administration Dates Next Due SEASONAL [...] this encounter Progress Notes * Yanique Mccarthy [facility] - 06/01/2023 2:10 PM EDT Medication Therapy Disease Management - Anticoagulation Patient: Dru Galvan | : 1940 Subjective Patient-Reported Symptoms: Patient Findings Negatives: Signs/symptoms of thrombosis, Signs/symptoms of bleeding, Change in health, Change in alcohol use, Change in activity, Upcoming invasive procedure, Missed doses, Extra doses, Change in medications, Change in diet/appetite, Bruising Objective Current Warfarin Dose As of 06/01/2023 Warfarin maintenance plan: No maintenance plan INR Result As of 06/01/2023 INR goal: 2.0-3.0 INR used for dosin.6 (06/01/2023) Assessment & Plan Warfarin Plan As of 06/01/2023 Full warfarin instructions: 06/01: 5 mg; 06/02: 2.5 mg; 06/03: 2.5 mg Next INR check: 06/04/2023 Repeat PT/INR in 3 day(s) Weekly dose: establishing Additional Dosing Information: Yanique Mccarthy RPh Clinical Pharmacist 06/01/2023, 2:10 PM documented in this encounter Plan of Treatment Upcoming Encounters Date Type Specialty Care Team Description 06/04/2023 Anticoagulation Pharmacy [address] [place] [address] 07/28/2023 Office Visit Cardiology Nils Webb PA-C [address] [place] [address] 08/24/2023 Office Visit Dermatology Kay Haney PA-C [address] [place] [address] [place] [address] Health Maintenance Due Date Last Done Comments [...] Comments INR FINGERSTICK, POINT OF CARE Routine 06/01/2023 2:23 PM EDT PAF (paroxysmal atrial fibrillation) (HCC) Anticoagulation management encounter 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 documented in this encounter Results * INR FINGERSTICK, POINT OF CARE (06/01/2023 2:23 PM EDT) Fingerstick INR 2.6 INR 2:25 PM EDT [facility] Blood 06/01/2023 2:23 PM EDT 06/01/2023 2:25 PM EDT Narrative [facility] - 06/01/2023 2:25 PM EDT Therapeutic ranges for non-operative patients: Prophylaxsis/treatment of DVT: (Range:2.0-3.0) Treatment of pulmonary embolism:(Range:2.0-3.0) Prevention of systemic embolism from: -tissue heart valves -acute myocardial infarction -valvular heart disease -atrial fibrillation (Range: 2.0-3.0) Mechanical prosthetic valves: (Range: 2.5-3.5) Shahrzad Lombardi RPh LAB POINT OF CARE TEST DOCKED DEVICE UNSOLICITED RESULTS [facility] [place] [address] documented in this encounter Visit Diagnoses Diagnosis PAF (paroxysmal atrial fibrillation) (HCC)- Primary Atrial fibrillation Anticoagulation management encounter Encounter for therapeutic drug monitoring Anticoagulant long-term use Long-term (current) use of 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s alf current use of 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 therapy documented in this encounter Care Teams Superintendent Nonselling Relationship Specialty Start Date End Date Arun Alexandre MD [address] [place] [address] PCP - General Family Medicine 05/17/18 documented as of this encounter"
--- OUTSIDE RECORDS SUMMARY | 2023-10-30 12:11 | External Medical Summary | Summary of Care ---
Author Name Unknown Organization [facility] Address [address] [place] [address] Phone [phone] Care Team Providers Care Child Day Care Teacher Name Role Phone Arun Alexandre MD Primary Care Provider + [phone] Reason for Visit * Reason Comments Dosage Adjustment In Person (Anticoag Cl inic) Encounter Details Date Type Department Care Team Description 05/25/2023 Anticoagulation Pharmacy, [address] [place] [address] [place] [address] PAF (paroxysmal atrial fibrillation) (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) Inhale 1 Puff by mouth 2 times a day. 180 Each 3 05/16/2021 Active Spiriva Respimat 2.5 MCG/ACT Inhalation Aerosol SolutionIndications: COPD, group D, by GOLD 2017 classification ([facility]) Take 2 puffs once daily 12 g 3 05/16/2021 Active Montelukast Sodium 10 MG Oral Tablet (Singulair)Indicatio ns:COPD, group D, by GOLD 2017 classification ([facility]) Take 1 Tab by mouth every evening. 90 Tab 3 05/16/2021 Active Fluticasone Propionate 50 MCG/ACT Nasal Suspension (Flonase)Indications :COPD, group D, by GOLD 2017 classification ([facility]) Administer 2 Sprays into nostril daily. 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 ANTICOAGULATION MANAGEMENT SERVICE TEACHING RECORD: Reviewed with: Patient and Son ASSESSMENT OF PATIENT: Does patient know why on coumadin? Verbalizes understanding Does patient understand about the drug? Verbalizes understanding Does patient understand what symptoms to watch out for? Verbalizes understanding Does patient have any problems with taking medication? No NEED FOR REGULAR BLOOD TEST: Does patient understand explaination of INR/PT? Verbalizes understanding Does patient understand importance of having blood drawn? Verbalizes understanding A&P PERTINENT TO ANTICOAGULATION: Normal blood clotting: Verbalizes understanding How blood clots over time: Verbalizes understanding Event Signs: Atrial fibrillation correlation with clots: Verbalizes understanding DRUG INTERACTIONS WITH COUMADIN: No ASA/NASAID/Pepto-Bismol: Not reviewed USE OF LMWH WITH COUMADIN (WARFARIN): Not applicable BLEEDING SIGNS AND SYMPTOMS TO REPORT: Verbalizes understanding GENDER SPECIFIC INFO: Not applicable DIET (VIT K FOODS): Verbalizes understanding MISSED TABS: Verbalizes understanding TIME OF DAY TO TAKE PILLS: Verbalizes understanding ALCOHOL USE: Not reviewed NOTIFICATION OF OTHER HEALTH CARE PROVIDER: Not reviewed ID CARD: Verbalizes understanding Not applicable CALENDAR: Verbalizes understanding CALL BACK/AFTER HOURS: Within 48 hours: Verbalizes understanding ADL: Razor/care with activities/work: Verbalizes understanding TRAVEL: Refills/Time changes/foods: Verbalizes understanding REVIEW WHEN TO CALL ANTICOAGULATION MANAGEMENT SERVICE: Medications/illness/bleeding: Verbalizes understanding Yanique Mccarthy RPh Clinical Pharmacist Medication Therapy [facility] 05/25/2023, 11:50 AM * Yanique Mccarthy RPh - 05/25/2023 10:09 AM EDT Images from the original note [...] Bruising Objective Current Warfarin Dose As of 05/25/2023 Warfarin maintenance plan: No maintenance plan INR Result As of 05/25/2023 INR goal: 2.0-3.0 INR used for dosin.3 (05/25/2023) Assessment & Plan Warfarin Plan As of 05/25/2023 Full warfarin instructions: 05/25: 7.5 mg; 05/26: 7.5 mg; 05/27: 5 mg Next INR check: 05/28/2023 Repeat PT/INR in 3 day(s) Weekly dose: establishing Additional Dosing Information: No ASA/NASAID/Pepto-Bismol: Not reviewed ALCOHOL USE: Not reviewed NOTIFICATION OF OTHER HEALTH CARE PROVIDER: Not reviewed Patient's recently started on Coumadin as well. In future will work to coordinate OFS togetherto reduce transportation burden. Yanique Mccarthy RPh Clinical Pharmacist 05/25/2023, 10:09 AM documented in this encounter Miscellaneous Notes * Pt Handout (on AVS) - Yanique Mccarthy RPh - 05/25/2023 10:24 AM EDT Images from the original note were not included. [id number] Warfarin Oral Tablet Brands: Coumadin, Jantoven Uses This medicine is used for the following purposes: prevent blood clots treatment of blood clots Instructions This medicine may be taken with or without food. This medicine will work best if you take it at about the same time every day. Keep the medicine at room temperature. Avoid heat and direct light. It is important that you keep taking each dose of this medicine on time even if you are feeling well. If you forget to take a dose on time, take it as soon as you remember. If you don't remember until the next day, please call your doctor for instructions. Never take a double dose or skip a dose unless your provider tells you to do so. Tell your doctor and pharmacist about all your medicines. Include prescription and [id number], vitamins, and herbal medicines. Cautions Tell your doctor and pharmacist if you ever had an allergic reaction to a medicine. Do not use the medication any more than instructed. Contact your doctor if you notice a change in the amount or darkening of your urine. Tell the doctor or pharmacist if you are , planning to be , or . Women who are or in their childbearing years should not touch or handle this medicine. This medicine can be absorbed through the woman's skin and harm the unborn baby. Call your doctor right away if you notice any unusual bleeding or bruising. Do not share this medicine with anyone who has not been prescribed this medicine. Side Effects The following is a list of some common side effects from this medicine. Please speak with your doctor about what you should do if you experience these or other side effects. liver problems nausea red, burning, or itchy skin stomach upset or abdominal pain Call your doctor or get medical help right away if you notice any of these more serious side effects: loss of balance bleeding or bruising chest pain coughing up blood or vomit that looks like coffee grounds dizziness fainting severe or persistent headache sudden leg pain, swelling, warmth or redness signs of liver damage (such as yellowing of eye or skin, dark urine, or unusual tiredness) pale or blue skin, lips or fingernails bloody or dark, tarry stools light colored stool symptoms of stroke (such as one-sided weakness, slurred speech, confusion) blood in urine A few people may have an allergic reaction to this medicine. Symptoms can include difficulty breathing, skin rash, itching, swelling, or severe dizziness. If you notice any of these symptoms, seek medical help quickly. Extra Please speak with your doctor, nurse, or pharmacist if you have any questions about this medicine. [email or web address] IMPORTANT NOTE: This document tells you briefly how to take your medicine, but it does not tell youall there is to know about it. Your doctor or pharmacist may give you other documents about your medicine. Please talk to them if you have any questions. Always follow their advice. There is a more complete description of this medicine available in [place]. Scan this code on your smartphone or tablet or use the web address below. You can also ask your pharmacist for a printout. If you have any questions, please ask your pharmacist. The display and use of this drug information is subject to Terms of Use. Copyright(c) 2022 [employer]. [employer]. All rights reserved. This information is not intended as a substitute for professional medical care. Always follow your healthcare professional's instructions. documented in this encounter Plan of Treatment Upcoming Encounters Date Type Specialty Care Team Description 05/28/2023 Anticoagulation Pharmacy [place] [address] [place] [address] 07/28/2023 Office Visit Cardiology Nils Webb PA-C [address] [place] [address] 08/24/2023 Office Visit Dermatology Kay Haney PA-C [address] [place] [address] [place] [address] Health Maintenance Due Date Last Done Comments [...] Comments INR FINGERSTICK, POINT OF CARE Routine 05/25/2023 10:28 AM EDT PAF (paroxysmal atrial fibrillation) (HCC) Anticoagulation management encounter 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 documented in this encounter Results * INR FINGERSTICK, POINT OF CARE (05/25/2023 10:28 AM EDT) Fingerstick INR 1.3 INR 10:30 AM EDT [facility] [place] [address] Blood 05/25/2023 10:2 8 AM EDT 05/25/2023 10:30 AM EDT Narrative [facility] 55-00 - 05/25/2023 10:30 AM EDT Therapeutic ranges for non-operative patients: Prophylaxsis/treatment of DVT: (Range:2.0-3.0) Treatment of pulmonary embolism:(Range:2.0-3.0) Prevention of systemic embolism from: -tissue heart valves -acute myocardial infarction -valvular heart disease -atrial fibrillation (Range: 2.0-3.0) Mechanical prosthetic valves: (Range: 2.5-3.5) Shahrzad Lombardi [facility] LAB POINT OF CARE TEST DOCKED DEVICE UNSOLICITED RESULTS [facility] [place] [address] [place] [id number] documented in this encounter Visit Diagnoses Diagnosis PAF (paroxysmal atrial fibrillation) (HCC)- Primary Atrial fibrillation Anticoagulation management encounter Encounter for therapeutic drug monitoring Anticoagulant long-term use Long-term (current) use of 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s halfway current use of 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 therapy documented in this encounter Care Teams Child Day Care Teacher Relationship Specialty Start Date End Date Arun Alexandre MD [address] [place], [place] [phone] PCP - General Family Medicine 05/17/18 documented as of this encounter"
--- OUTSIDE RECORDS SUMMARY | 2023-10-30 12:11 | External Medical Summary | Summary of Care ---
Author Name Unknown Organization [facility] Address [address] [place] [address] Phone [phone] Care Team Providers Care Grip Wrapper Name Role Phone Arun Alexandre MD Primary Care Provider + [phone] Reason for Visit * Reason Comments Dosage Adjustment In Person (Anticoag Cl inic) Encounter Details Date Type Department Care Team Description 06/04/2023 Anticoagulation Pharmacy, [address] [place] [address] [place] [address] PAF (paroxysmal atrial fibrillation) (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) Inhale 1 Puff by mouth 2 times a day. 180 Each 3 05/16/2021 Active Spiriva Respimat 2.5 MCG/ACT Inhalation Aerosol SolutionIndications: COPD, group D, by GOLD 2017 classification ([facility]) Take 2 puffs once daily 12 g 3 05/16/2021 Active Montelukast Sodium 10 MG Oral Tablet (Singulair)Indicatio ns:COPD, group D, by GOLD 2017 classification ([facility]) Take 1 Tab by mouth every evening. 90 Tab 3 05/16/2021 Active Fluticasone Propionate 50 MCG/ACT Nasal Suspension (Flonase)Indications :COPD, group D, by GOLD 2017 classification ([facility]) Administer 2 Sprays into nostril daily. 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, R dorsal hand, R scalp 2018, L dorsal wrist 06/07), basal cell carcinoma (L forearm, L preauricular region 09/2019) AK (actinic keratosis) 05/24/2014 Overview: Efudex 04/2014 documented as of this encounter (statuses as of 06/04/2023) Resolved Problems Problem Noted Date Resolved Date Squamous cell carcinoma of skin of left jehovah's witness 1 08/31/2018 09/28/2019 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/26/2019 09/28/2019 COPD, severe 06/07/2018 02/28/2021 Overview: Per COPD GOLD Classification SCC (squamous cell carcinoma), face 05/03/2014 06/13/2015 Overview: L lateral forehead documented as of this encounter (statuses as of 06/04/2023) Immunizations Name Administration Dates Next Due SEASONAL [...] this encounter Progress Notes * Yanique Mccarthy [facility] - 06/04/2023 1:42 PM EDT Medication Therapy Disease Management - Anticoagulation Patient: Dru Galvan | : 1940 Patient presents w/ spouse and son Subjective Patient-Reported Symptoms: Patient Findings Negatives: Signs/symptoms of thrombosis, Signs/symptoms of bleeding, Change in health, Change in alcohol use, Change in activity, Upcoming invasive procedure, Missed doses, Extra doses, Change in medications, Change in diet/appetite, Bruising Objective Current Warfarin Dose As of 06/04/2023 Warfarin maintenance plan: No maintenance plan INR Result As of 06/04/2023 INR goal: 2.0-3.0 INR used for dosin.3 (06/04/2023) Assessment & Plan Warfarin Plan As of 06/04/2023 Full warfarin instructions: 5 mg every Mon, Fri; 2.5 mg all other days Next INR check: 06/11/2023 Repeat PT/INR in 1 week(s) Weekly dose: established Additional Dosing Information: Yanique Mccarthy RPh Clinical Pharmacist 06/04/2023, 1:42 PM documented in this encounter Plan of Treatment Upcoming Encounters Date Type Specialty Care Team Description 06/11/2023 Anticoagulation Pharmacy [address] [place] [address] 07/28/2023 Office Visit Cardiology Nils Webb PA-C [address] [place] [address] 08/24/2023 Office Visit Dermatology Kay Haney PA-C [address] [place] [address] [place] [address] Health Maintenance Due Date Last Done Comments [...] Comments INR FINGERSTICK, POINT OF CARE Routine 06/04/2023 1:49 PM EDT PAF (paroxysmal atrial fibrillation) (HCC) Anticoagulation management encounter Anticoagulant long-term use [facility] current use of 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 therapy documented in this encounter Results * INR FINGERSTICK, POINT OF CARE (06/04/2023 1:49 PM EDT) Fingerstick INR 2.3 INR 1:50 PM EDT [facility] 55-00 Blood 06/04/2023 1:49 PM EDT 06/04/2023 1:50 PM EDT Narrative [facility] 55-00 - 06/04/2023 1:50 PM EDT Therapeutic ranges for non-operative patients: Prophylaxsis/treatment of DVT: (Range:2.0-3.0) Treatment of pulmonary embolism:(Range:2.0-3.0) Prevention of systemic embolism from: -tissue heart valves -acute myocardial infarction -valvular heart disease -atrial fibrillation (Range: 2.0-3.0) Mechanical prosthetic valves: (Range: 2.5-3.5) Shahrzad Lombardi [facility] LAB POINT OF CARE TEST DOCKED DEVICE UNSOLICITED RESULTS [facility] [place] [address] documented in this encounter Visit Diagnoses Diagnosis PAF (paroxysmal atrial fibrillation) (HCC)- Primary Atrial fibrillation Anticoagulation management encounter Encounter for therapeutic drug monitoring Anticoagulant long-term use Long-term (current) use of 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s [facility] current use of 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 therapy documented in this encounter Care Teams Grip Wrapper Relationship Specialty Start Date End Date Arun Alexandre MD [address] [place] [address] PCP - General Family Medicine 05/17/18 documented as of this encounter"
--- OUTSIDE RECORDS SUMMARY | 2023-10-30 12:11 | External Medical Summary | Summary of Care ---
Author Name Unknown Organization [facility] Address [address] [place] [address] Phone [phone] Care Team Providers Care Apartment Community Manager Name Role Phone Arun Alexandre MD Primary Care Provider [phone] Reason for Visit * Reason Comments Dosage Adjustment In Person (Anticoag Cl inic) Encounter Details Date Type Department Care Team (Latest Contact Info) Description 06/11/2023 1:50 PM EDT Anticoagulation Pharmacy, [address] [place] [address] [place] [address] PAF (paroxysmal atrial fibrillation) ([facility])*; Anticoagulation management encounter; Anticoagulant long-term use; [facility] current use of 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 therapy Allergies Active Allergy Reactions Criticality Noted Date Comments Isosorbide Nitrate 05/07/2021 Headache Pollen Other (Please comment) 01/17/2014 Runny nose, itchy eyes, nasal congestion documented as of this encounter (statuses as of 06/11/2023) Medications Medication Sig Dispensed Refills Start Date [...] OPD, group D, by GOLD 2017 classification ([facility]) Inhale 1 Puff by mouth 2 times a day. 180 Each 3 05/16/2021 Active Spiriva Respimat 2.5 MCG/ACT Inhalation Aerosol SolutionIndications: COPD, group D, by GOLD 2017 classification ([facility]) Take 2 puffs once daily 12 g 3 05/16/2021 Active Montelukast Sodium 10 MG Oral Tablet (Singulair)Indicatio ns:COPD, group D, by GOLD 2017 classification ([facility]) Take 1 Tab by mouth every evening. 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 01/26/2019 09/28/2019 COPD, severe 06/07/2018 02/28/2021 Overview: Per COPD GOLD Classification SCC (squamous cell carcinoma), face 05/03/2014 06/13/2015 Overview: L lateral forehead documented as of this encounter (statuses as of 06/11/2023) Immunizations Name Administration Dates Next Due SEASONAL [...] this encounter Progress Notes * Yanique Mccarthy, [facility] - 06/11/2023 1:37 PM EDT Medication Therapy Disease Management - Anticoagulation Patient: Dru Galvan | : 1940 Patient presents with son and spouse Subjective Patient-Reported Symptoms: Patient Findings Negatives: Signs/symptoms of thrombosis, Signs/symptoms of bleeding, Change in health, Change in alcohol use, Change in activity, Upcoming invasive procedure, Missed doses, Extra doses, Change in medications, Change in diet/appetite, Bruising Objective Current Warfarin Dose As of 06/11/2023 Warfarin maintenance plan: 5 mg (5 mg x 1) every Mon, Fri; 2.5 mg (5 mg x 0.5) all other days INR Result As of 06/11/2023 INR goal: 2.0-3.0 INR used for dosin.1 (06/11/2023) Assessment & Plan Warfarin Plan As of 06/11/2023 Full warfarin instructions: 5 mg every Mon, Fri; 2.5 mg all other days No change documented: Yanique Mccarthy RPh Next INR check: 06/18/2023 Repeat PT/INR in 1 week(s) Weekly dose: not changed Additional Dosing Information: Yanique Mccarthy RPh Clinical Pharmacist 06/11/2023, 1:37 PM documented in this encounter Plan of Treatment Upcoming Encounters Date Type Department Care Team (Late st Contact Info) Description 06/18/2023 2:10 PM EDT Anticoagulation Pharmacy, [address] [place] [address] [place] [address] 07/28/2023 10:00 AM EST Office Visit Cardiology [address] [place] [address] Nils Webb PA-C [address] [facility] [place] [address] 08/24/2023 8:20 AM EST Office Visit Dermatology [address] [place] [address] Kay Haney PA-C [address] [place] [address] [place] [address] Health Maintenance Due Date Last Done Comments [...] Comments INR FINGERSTICK, POINT OF CARE Routine 06/11/2023 1:43 PM EDT PAF (paroxysmal atrial fibrillation) (HCC) Anticoagulation management encounter Anticoagulant long-term use glue mixer current use of 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 therapy documented in this encounter Results * INR FINGERSTICK, POINT OF CARE (06/11/2023 1:43 PM EDT) Fingerstick INR 2.1 INR 1:44 PM EDT [facility] Blood 06/11/2023 1:43 PM EDT 06/11/2023 1:44 PM EDT Narrative [facility] - 06/11/2023 1:44 PM EDT Therapeutic ranges for non-operative patients: Prophylaxsis/treatment of DVT: (Range:2.0-3.0) Treatment of pulmonary embolism:(Range:2.0-3.0) Prevention of systemic embolism from: -tissue heart valves -acute myocardial infarction -valvular heart disease -atrial fibrillation (Range: 2.0-3.0) Mechanical prosthetic valves: (Range: 2.5-3.5) Shahrzad Lombardi [facility] LAB POINT OF CARE TEST DOCKED DEVICE UNSOLICITED RESULTS [facility] [address] [place], [place] [phone] documented in this encounter Visit Diagnoses Diagnosis PAF (paroxysmal atrial fibrillation) (HCC)- Primary Atrial fibrillation Anticoagulation management encounter Encounter for therapeutic drug monitoring Anticoagulant long-term use Long-term (current) use of 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s glue mixer current use of 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 therapy documented in this encounter Care Teams Apartment Community Manager Relationship Specialty Start Date End Date Arun Alexandre MD [address] [place] [address] PCP - General Family Medicine 05/17/18 documented as of this encounter"
--- OUTSIDE RECORDS SUMMARY | 2023-10-30 12:11 | External Medical Summary ---
Author Name Unknown Address Unknown Organization : Laboratory Report Ordering Provider Test Date Status YARIEL ALFORD 06/04/2023 13:49:08 Final Therapeutic ranges for non-o perative patients:
Prophylaxsis/treatment of DVT: (Range:2.0-3.0)
Treatment of pulmonary embolism:(Range:2.0-3.0)
Prevention of systemic embolism from:
-tissue heart valves
-acute myocardial infarction
-valvular heart disease
-atrial fibrillation
(Range: 2.0-3.0)
Mechanical prosthetic valves: (Range: 2.5-3.5) Observation Date Value Abnormality Reference (Units ) Status INR in Capillary blood by Coagulation assay 06/04/2023 13:49:08 2.3 (INR) Final Performing Location
--- OUTSIDE RECORDS SUMMARY | 2023-10-30 12:12 | External Medical Summary ---
Author Name Unknown Address Unknown Organization [id number] [address] [place] [address] Laboratory Report Ordering Provider Test Date Status JHONNY POSADA 05/22/2023 11:40:09 Final Warfarin Therapy
INR: 2 .0-3.0 conventional anticoagulation
INR: 2.5- 3.5 high intensity anticoagulation Observation Date Value Abnormality Reference (Units ) Status PT 05/22/2023 11:40:09 16.0 Above high normal 11 .6-15.2 (seconds) Final INR 05/22/2023 11:40:09 1.3 Above high normal 0. 8-1.2 Final Performing Location [facility] [address] [place] [address]
--- OUTSIDE RECORDS SUMMARY | 2023-10-30 12:12 | External Medical Summary ---
Author Name Unknown Address Unknown Organization [facility] [address] [place] [address] Laboratory Report Ordering Provider Test Date Status JHONNY POSADA 05/22/2023 11:40:09 Final Observation Date Value Abnormality Reference (Units ) Status SYNC LEUKOCYTES IN BLOOD BY AUTOMATED COUNT 05/22/2023 11:40:09 10.15 4.00-10.80 (K/uL) Final Segs 05/22/2023 11:40:09 67.1 40.0-75.0 (%) Final Lymphs % 05/22/2023 11:40:09 23.8 18.0-42.0 (%) Final Monos 05/22/2023 11:40:09 7.8 1.0-11.0 (%) Final Eosinophils 05/22/2023 11:40:09 1.0 0.0-6.0 (%) Final Basos 05/22/2023 11:40:09 0.3 0.0-2.0 (%) Final Absolute Segs 05/22/2023 11:40:09 6.81 1.80-7.70 (K/uL) Final Lymphs, absolute 05/22/2023 11:40:09 2.42 1.00-4.80 (K/ul) Final Monos, Abs 05/22/2023 11:40:09 0.79 0.00-1.10 (K/uL) Final Eos, Abs 05/22/2023 11:40:09 0.10 0.00-0.70 (K/uL) Final Basos, Abs 05/22/2023 11:40:09 0.03 0.00-0.20 (K/uL) Final Performing Location [facility] [address] [place] [address]
--- OUTSIDE RECORDS SUMMARY | 2023-10-30 12:12 | External Medical Summary | Summary of Care ---
Author Name Unknown Organization [facility] Address [address] [place] [address] Phone [phone] Care Team Providers Care Data Modeler Name Role Phone Arun Alexandre MD Primary Care Provider [phone] Reason for Visit * Reason Onset Date Comments Medical Records Request 05/12/2023 Encounter Details Date Type Department Care Team Description 05/12/2023 Telephone Family Practice [facility] [address] [place] [address] Kay Haile DO [address] [place] [address] Medical Records Request Allergies Active Allergy Reactions Severity Noted Date Comments Isosorbide Nitrate 05/07/2021 Headache Pollen Other (Please comment) 01/17/2014 Runny nose, itchy eyes, nasal congestion documented as of this encounter (statuses as of 05/12/2023) Medications Medication Sig Dispensed Refills Start Date [...] group D, by GOLD 2017 classification ([facility]) Inhale 1 Puff by mouth 2 times a day. 180 Each 3 05/16/2021 Active Spiriva Respimat 2.5 MCG/ACT Inhalation Aerosol SolutionIndications: COPD, group D, by GOLD 2017 classification ([facility]) Take 2 puffs once daily 12 g 3 05/16/2021 Active Montelukast Sodium 10 MG Oral Tablet (Singulair)Indicatio ns:COPD, group D, by GOLD 2017 classification ([facility]) Take 1 Tab by mouth every evening. 90 Tab 3 05/16/2021 Active Fluticasone Propionate 50 MCG/ACT Nasal Suspension (Flonase)Indications :COPD, group D, by GOLD 2017 classification ([facility]) Administer 2 Sprays into nostril [...] MCG (2000 UT) Oral Tablet (Cholecalciferol) Take by mouth 1 Tablet daily . 0 Active Magnesium 250 MG Oral Tablet Take 1 Tablet by mouth in the morning. 0 Active ProAir HFA 108 (90 Base) [...] PER WEEK 65 Tablet 3 07/28/2022 Active Spironolactone 25 MG Oral Tablet (Aldactone) TAKE ONE-HALF TABLET BY MOUTH IN THE MORNING 45 Tablet 3 08/29/2022 Active amLODIPine Besylate 2.5 MG Oral Tablet (Norvasc)Indications :HTN, goal below 140/90 TAKE 1 TABLET BY MOUTH BEFORE BEDTIME 90 Tablet 3 10/14/2022 Active Additional Information Patient not taking.Reported on 05/12/2023 Metoprolol Succinate ER 50 MG Oral Tablet Extended Release 24 Hour (Toprol XL) Take 1.5 Tablets by mouth in the morning. 135 Tablet 3 10/14/2022 Active Atorvastatin Calcium 10 MG Oral Tablet (Lipitor)Indications :Dyslipidemia, goal LDL below 70 TAKE 1 TABLET BY MOUTH DAILY 90 Tablet 3 03/30/2023 Active Apixaban 5 MG Oral Tablet (Eliquis) Take 1 Tablet by mouth in the morning and 1 Tablet before bedtime. 0 04/14/2023 Active Pantoprazole Sodium 40 MG Oral Tablet Delayed Release (Protonix) Take 1 Tablet by mouth in the morning. 0 04/14/2023 Active documented as of this encounter (statuses as of 05/12/2023) Active Problems Problem Noted Date PHT (pulmonary hypertension) 05/16/2021 ILD (interstitial lung [...] as of this encounter (statuses as of 05/12/2023) Resolved Problems Problem Noted Date Resolved Date Squamous cell carcinoma of skin of left anabaptism 1 08/31/2018 09/28/2019 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/26/2019 09/28/2019 COPD, severe 06/07/2018 02/28/2021 Overview: Per COPD GOLD Classification SCC (squamous cell carcinoma), face 05/03/2014 06/13/2015 Overview: L lateral forehead documented as of this encounter (statuses as of 05/12/2023) Immunizations Name Administration Dates Next Due Seasonal Influenza, PF, 6 mons & Above, IM , (Fl ulaval) 06/07/2018 Seasonal Influenza, Trivalent, Adjuvanted, 65+ y rs 05/09/2020 documented as of this encounter Social History Tobacco Use Types Packs/Day Years Used Date Smoking Tobacco: Former Cigarettes 2 38 Q uit: 1978 Smokeless Tobacco: Current Snuff Comments:A can a day Alcohol Use Standard Drinks/Week Comments No 0 (1 standard drink = 0.6 oz pur e alcohol) Sex Assigned at Date Recorded Not on file Job Start Date Occupation Industry Not on file Not on file Not on file documented as of this encounter Miscellaneous Notes * Telephone Encounter - Kay Haile DO - 05/12/2023 12:55 PM EDT We do not need Pt is not actually a patient here * Telephone Encounter - Rashmi Lin LPN - 05/12/2023 9:15 AM EDT Laura ([facility]) states that she will fax patients med list to [phone] and if thereis any other specific information that Dr. Haile is looking for to call her back. Reason for Call: Medical Records Request Contact: Telephone Call Contact Type: Care Coordination Total Time including non face to face (minutes): 5 documented in this encounter Plan of Treatment Upcoming Encounters Date Type Specialty Care Team Description 07/28/2023 Office Visit Cardiology Nils Webb [facility] [address] [place] [address] Health Maintenance Due Date Last Done Comments Pneumococcal Vaccine: 65+ Years (1 - PCV) 1946 Depression Screening 1953 Albumin/Creatinine Ratio 1959 O2 ASSESSMENT COMPLETED IN PAST YEAR FOR COPD 1959 05/12/2023 DTaP,Tdap,and Td Vaccines (1 - Tdap) 1960 Zoster Vaccines (1 of 2) 1991 *ADVANCE DIRECTIVE NOT ON FILE 05/13/2020 COVID-19 Vaccine (3 - Mixed Product series) 12/07/2020 10/12/2020, 09/14/2020 GFR 01/06/2023 01/06/2022, 03/2020, 05/02/2019, Additional history exists Influenza Vaccine (FLU shot) (#1) 2023 05/09/2020, 06/07/2018, 05/05/2016 Alpha-1 Antitrypsin Completed 05/09/2020 GARDASIL-HPV IMMUNIZATION SERIES Aged Out No longer eligible based on patient's age to complete this topic Hepatitis B Aged Out No longer eligi ble based on patient's age to complete this topic MENINGOCOCCAL (MENACTRA/MENVEO) Aged Out No longer eligible based on patient's age to complete this topic documented as of this encounter Medical Devices Not on filedocumented as of this encounter Care Teams Data Modeler Relationship Specialty Start Date End Date Arun Alexandre MD [address] [facility] [place] [address] PCP - General Family Medicine 05/17/18 documented as of this encounter
--- OUTSIDE RECORDS SUMMARY | 2023-10-30 12:12 | External Medical Summary ---
Author Name Unknown Address Unknown Organization K0[facility] [address] [place] [address] Laboratory Report Ordering Provider Test Date Status JHONNY POSADA 05/22/2023 11:40:09 Final Observation Date Value Abnormality Reference (Units ) Status WBC, Total 05/22/2023 11:40:09 10.15 4.00-10.8 0 (K/uL) Final RBC 05/22/2023 11:40:09 4.81 4.50-5.25 (M/uL) Final Hemoglobin 05/22/2023 11:40:09 15.6 14.0-16.8 (g/dL) Final HCT 05/22/2023 11:40:09 47.2 40.0-48.4 (%) Final MCV 05/22/2023 11:40:09 98.1 82.0-99.5 (fL) Final MCH 05/22/2023 11:40:09 32.4 27.0-34.0 (pg) Final MCHC 05/22/2023 11:40:09 33.1 32.0-36.0 (g/dL) Final RDW 05/22/2023 11:40:09 14.8 11.5-15.5 (%) Final Platelets 05/22/2023 11:40:09 152 140-400 (K /uL) Final MPV 05/22/2023 11:40:09 12.1 6.6-11.1 ( fL) Final Performing Location [facility] [address] [address]
--- OUTSIDE RECORDS SUMMARY | 2023-10-30 12:12 | External Medical Summary | Summary of Care ---
Author Name Unknown Organization [facility] Address [address] [place] [address] Phone [phone] Care Team Providers Care Campus Director Name Role Phone Arun Alexandre MD Primary Care Provider + [phone] Reason for Visit * Reason Comments Hospital Follow-Up Pt here for f/u to [facility], post hospital stay. Has some issues with BP going too low. His discharge paper says they D/C'd his Spironolactone and the Amlodipine but he feels he is still taking it. Encounter Details Date Type Department Care Team Description 05/12/2023 Office Visit Family [facility] [address] [place] [address] Kay Porter DO [address] [facility] [place] [address] Chronic respiratory failure with hypoxia (HCC)* Allergies Active Allergy Reactions Severity Noted Date [...] COPD, group D, by GOLD 2017 classification ([facility]) Inhale 1 Puff by mouth 2 times a day. 180 Each 3 05/16/2021 Active Spiriva Respimat 2.5 MCG/ACT Inhalation Aerosol SolutionIndications :COPD, group D, by GOLD 2017 classification ([facility]) Take 2 puffs once daily 12 g 3 05/16/2021 Active Montelukast Sodium 10 MG Oral Tablet (Singulair)Indicati ons:COPD, group D, by GOLD 2017 classification ([facility]) Take 1 Tab by mouth every evening. 90 Tab 3 05/16/2021 Active Fluticasone Propionate 50 MCG/ACT Nasal Suspension (Flonase)Indication s:COPD, group D, by GOLD 2017 classification ([facility]) Administer 2 Sprays into nostril [...] Active amLODIPine Besylate 2.5 MG Oral Tablet (Norvasc)Indication s:HTN, goal below 140/90 TAKE 1 TABLET BY [...] mouth in the morning. 0 04/14/2023 Active tamsulosin (FLOMAX) 0.4 MG Capsule Take 1 Capsule by mouth in the morning. 0 01/15/2016 3 Discontinu ed(Patient preference /discontin uation) Ipratropium-Albuter ol 0.5-2.5 (3) MG/3ML Inhalation Solution (Duoneb) Inhale 3 mL via nebulizer 2 times a day as needed for Dyspnea. 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 Chief Complaint Patient presents with Hospital Follow-Up Pt here for f/u to [facility], post hospital stay. Has some issues with BP going too low. His discharge paper says they D/C'd his Spironolactone and the Amlodipine but he feels he is still taking it. There are no exam notes on file for this visit. HPI: This is a 82 year old male with PMHx as below presents with hospital follow up VSS Pt is est with Dr. Alexandre - has appt this week Unsure of why here today Health Maintenance Due Topic Date Due Pneumococcal Vaccine: 65+ Years (1 - PCV) Never done Depression Screening Never done Albumin/Creatinine Ratio Never done O2 ASSESSMENT COMPLETED IN PAST YEAR FOR COPD Never done DTaP,Tdap,and Td Vaccines (1 - Tdap) Never done Zoster Vaccines (1 of 2) Never done *ADVANCE DIRECTIVE NOT ON FILE Never done COVID-19 Vaccine (3 - Mixed Product series) 12/07/2020 GFR 01/06/2023 Influenza Vaccine (FLU shot) (1) 04/17/2023 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 oxygen GAS Use 2 L/min(Oxygen) as directed daily. Fluticasone-Salmeterol 250-50 MCG/DOSE Inhalation Aerosol Powder Breath [...] Take by mouth 1 Tablet daily . Magnesium 250 MG Oral Tablet Take 1 Tablet by mouth in the morning. Furosemide 20 MG Oral Tablet (Lasix) TAKE 1 TABLET BY MOUTH DAILY 5 DAYS PER WEEK 65 Tablet 3 Metoprolol Succinate ER 50 MG Oral Tablet Extended Release 24 Hour (Toprol XL) Take 1.5 Tablets by mouth in the morning. 135 Tablet 3 Atorvastatin Calcium 10 MG Oral Tablet (Lipitor) TAKE 1 TABLET BY MOUTH DAILY 90 Tablet 3 Apixaban 5 MG Oral Tablet (Eliquis) Take 1 Tablet by mouth in the morning and 1 Tablet before bedtime. Pantoprazole Sodium 40 MG Oral Tablet Delayed Release (Protonix) Take 1 Tablet by mouth in the morning. Magnesium Oxide 400 MG Capsule Take 1 Cap by mouth daily. 34 Cap 11 dutasteride (AVODART) 0.5 MG Capsule Take 1 Capsule by mouth in the morning. (Patient not taking: Reported on 05/12/2023) diphenhydrAMINE HCl (BENADRYL) 12.5 MG/5ML liquid Take 10 mL by mouth 4 times a day as needed for Rhinitis. Omeprazole 20 MG Oral Capsule Delayed Release (PriLOSEC) Take 1 Cap by mouth daily as needed for Heartburn. 90 Cap 3 ProAir HFA 108 (90 Base) MCG/ACT Inhalation Aerosol Solution Inhale by mouth 2 Puffs every 6 hours as needed for Shortness of Breath or Wheezing. 18 g 3 Mupirocin 2 % External Ointment (Bactroban) Apply to wound on left wrist daily (Patient not taking:Reported on 10/14/2022) 22 g 0 Spironolactone 25 MG Oral Tablet (Aldactone) TAKE ONE-HALF TABLET BY MOUTH IN THE MORNING 45 Tablet3 amLODIPine Besylate 2.5 MG Oral Tablet (Norvasc) TAKE 1 TABLET BY MOUTH BEFORE BEDTIME (Patient nottaking: Reported on 05/12/2023) 90 Tablet 3 No current facility-administered medications for this visit. Past Medical History: Diagnosis Date Lung nodule Pulmonary arterial hypertension (HCC) No past surgical history on file. Review of patient's allergies indicates: Allergen Reactions Imdur [Isosorbide Nitrate] Headache Pollen Other (Please comment) Runny nose, itchy eyes, nasal congestion Family History Problem Relation Age of Onset Heart Disorder Grandfather (Maternal) 80 [place] Renal Hx Mother ESRD Breast Cancer Mother Other (Unknown) Father Cancer Sister (Half) neck Lung cancer Brother (Half) Family Status Relation Status MGFA (Not Specified) Mo Fa (Not Specified) HSIS Alive HSIS Alive HSIS Alive HBRO Social History Socioeconomic History Marital status: Spouse name: Not on file Number of children: Not on file Years of education: Not on file Highest education level: Not on file Occupational History Occupation: [employer] Comment: worked with fumes; wasn't in the [email or web address] Tobacco Use Smoking status: Former Packs/day: 2.00 Years: 38.00 Pack years: 76.00 Types: Cigarettes Quit date: 1978 Years since quittin.7 Smokeless tobacco: Current Types: Snuff Tobacco comments: A can a day Vaping Use Vaping Use: Never used Substance and Sexual Activity Alcohol use: No Drug use: No Sexual activity: Not on file Other Topics Concern Not on file Social History Narrative No pets. No mold. Social Determinants of Health Financial Resource Strain: Not on file Food Insecurity: Not on file Transportation Needs: Not on file Physical Activity: Not on file Stress: Not on file Social Connections: Not on file Intimate Partner Violence: Not on file Housing Stability: Not on file Review of Systems: As per HPI all other ROS negative. Wt Readings from Last 3 Encounters: 01/20/23 78.7 kg (173 lb 9.6 oz) 10/14/22 83.6 kg (184 lb 6.4 oz) 07/08/22 85.5 kg (188 lb 9.6 oz) Results for orders placed or performed in visit on 07/15/22 CULTURE, WOUND, SUPERFICIAL, AEROBIC Result Value Ref Range Culture Growth Moderate Staphylococcus aureus (A) Susceptibility Staphylococcus aureus - MICROBROTH DILUTIONS Clindamycin Susceptible Erythromycin Resistant Oxacillin Susceptible Penicillin G Resistant Tetracycline Susceptible Trimeth/Sulfamethoxazole Susceptible Vancomycin Susceptible OBJECTIVE: Physical Exam: BP 128/72 | Pulse 83 | Temp 36.3 C (97.3 F) (Tympanic) | Resp 16 | SpO2 89% General: alert, healthy, and no distress There are no diagnoses linked to this encounter. Kay Porter DO documented in this encounter Plan of Treatment Upcoming Encounters Date Type Specialty Care Team Description 07/28/2023 Office Visit Cardiology Nils Webb PA-C [address] [place] [address] Health Maintenance Due Date Last Done Comments Pneumococcal Vaccine: 65+ Years (1 - PCV) 1946 Depression Screening 1953 Albumin/Creatinine Ratio 1959 O2 ASSESSMENT COMPLETED IN PAST YEAR FOR COPD 1959 DTaP,Tdap,and Td Vaccines (1 - Tdap) [...] failure documented in this encounter Care Teams Campus Director Relationship Specialty Start Date End Date Arun Alexandre MD [address] [place] [address] PCP - General Family Medicine 05/17/18 documented as of this encounter"
--- OUTSIDE RECORDS SUMMARY | 2023-10-30 12:12 | External Medical Summary | Summary of Care ---
Author Name Unknown Organization [facility] Address [address] [place] [address] Phone [phone] Care Team Providers Care Underwear Hemmer Name Role Phone Arun Alexandre MD Primary Care Provider + [phone] Reason for Visit * Reason Comments Outpatient Testing Encounter Details Date Type Department Care Team Description 05/22/2023 Laboratory Laboratory, [facility] [address] [place] [address] [facility] [address] [place] [address] HTN, goal below 140/90; Need for prophylactic vaccination and inoculation against influenza; COPD, group D, by GOLD 2017 classification ([facility]); PAF (paroxysmal atrial fibrillation) ([facility]); Vitamin D deficiency; Screening for prostate cancer; Encounter for long-term (current) use of other medications; Asymptomatic microscopic hematuria Allergies Active Allergy Reactions Severity Noted Date Comments Isosorbide Nitrate 05/07/2021 Headache Pollen Other (Please comment) 01/17/2014 Runny nose, itchy eyes, nasal congestion documented as of this encounter (statuses as of 05/22/2023) Medications Medication Sig Dispensed Refills Start Date [...] by GOLD 2017 classification ([facility]) Inhale 1 Puff by mouth 2 times a day. 180 Each 3 05/16/2021 Active Spiriva Respimat 2.5 MCG/ACT Inhalation Aerosol SolutionIndications: COPD, group D, by GOLD 2017 classification ([facility]) Take 2 puffs once daily 12 g 3 05/16/2021 Active Montelukast Sodium 10 MG Oral Tablet (Singulair)Indicatio ns:COPD, group D, by GOLD 2017 classification ([facility]) Take 1 Tab by mouth every evening. 90 Tab 3 05/16/2021 Active Fluticasone Propionate 50 MCG/ACT Nasal Suspension (Flonase)Indications :COPD, group D, by GOLD 2017 classification ([facility]) Administer 2 Sprays into nostril daily. [...] 1 Tablet before bedtime. 0 04/14/2023 Active Melatonin 1 MG Oral Tablet Chewable [...] the morning. 90 Tablet 3 05/22/2023 Active documented as of this encounter (statuses as of 05/22/2023) Active Problems Problem Noted Date Vitamin B deficiency 05/22/2023 Vitamin D deficiency 05/22/2023 Encounter for long-term (current) use of other medications 05/22/2023 Screening for prostate cancer 05/22/2023 PAF (paroxysmal atrial fibrillation) 01/2023 Need for prophylactic vaccination and in oculation against influenza 05/22/2023 PHT (pulmonary hypertension) 05/16/2021 ILD (interstitial [...] as of this encounter (statuses as of 05/22/2023) Resolved Problems Problem Noted Date Resolved Date Squamous cell carcinoma of skin of left [facility] 1 08/31/2018 09/28/2019 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/26/2019 09/28/2019 COPD, severe 06/07/2018 02/28/2021 Overview: Per COPD GOLD Classification SCC (squamous cell carcinoma), face 05/03/2014 06/13/2015 Overview: L lateral forehead documented as of this encounter (statuses as of 05/22/2023) Immunizations Name Administration Dates Next Due SEASONAL [...] Visit Cardiology Nils Webb PA-C [address] [facility] [place] [address] Pending Results Name Type Priority Associated Diagnoses Date /Time PT INR Lab Routine HTN, goal below 140/90 Need for prophylactic vaccination and inoculation against influenza COPD, group D, by GOLD 2017 classification ([facility]) PAF (paroxysmal atrial fibrillation) ([facility]) Vitamin D deficiency Screening for prostate cancer Encounter for long-term (current) use of other medications 05/22/2023 11:40 AM EDT CBC WITH WBC DIFFERENTIAL Lab Routine HTN, goal below 140/90 Need for prophylactic vaccination and inoculation against influenza COPD, group D, by GOLD 2017 classification ([facility]) PAF (paroxysmal atrial fibrillation) ([facility]) Vitamin D deficiency Screening for prostate cancer Encounter for long-term (current) use of other medications 05/22/2023 11:40 AM EDT LIPID PANEL WITH DIRECT LDL IF TG IS HIGH Lab Routine HTN, goal below 140/90 Need for prophylactic vaccination and inoculation against influenza COPD, group D, by GOLD 2017 classification ([facility]) PAF (paroxysmal atrial fibrillation) ([facility]) Vitamin D deficiency Screening for prostate cancer Encounter for long-term (current) use of other medications 05/22/2023 11:40 AM EDT MAGNESIUM Lab Routine HTN, goal below 140/90 Need for prophylactic vaccination and inoculation against influenza COPD, group D, by GOLD 2017 classification ([facility]) PAF (paroxysmal atrial fibrillation) ([facility]) Vitamin D deficiency Screening for prostate cancer Encounter for long-term (current) use of other medications 05/22/2023 11:40 AM EDT 25-HYDROXY VITAMIN D Lab Routine HTN, goal below 140/90 Need for prophylactic vaccination and inoculation against influenza COPD, group D, by GOLD 2017 classification ([facility]) PAF (paroxysmal atrial fibrillation) ([facility]) Vitamin D deficiency Screening for prostate cancer Encounter for long-term (current) use of other medications 05/22/2023 11:40 AM EDT VITAMIN B12 Lab Routine HTN, goal below 140/90 Need for prophylactic vaccination and inoculation against influenza COPD, group D, by GOLD 2017 classification ([facility]) PAF (paroxysmal atrial fibrillation) ([facility]) Vitamin D deficiency Screening for prostate cancer Encounter for long-term (current) use of other medications 05/22/2023 11:40 AM EDT PSA Lab Routine HTN, goal below 140/90 Need for prophylactic vaccination and inoculation against influenza COPD, group D, by GOLD 2017 classification (HCC) PAF (paroxysmal atrial fibrillation) (HCC) Vitamin D deficiency Screening for prostate cancer Encounter for long-term (current) use of other medications Asymptomatic microscopic hematuria 05/22/2023 11:40 AM EDT CBC Lab Routine HTN, goal below 140/90 Need for prophylactic vaccination and inoculation against influenza COPD, group D, by GOLD 2017 classification (HCC) PAF (paroxysmal atrial fibrillation) (HCC) Vitamin D deficiency Screening for prostate cancer Encounter for long-term (current) use of other medications 05/22/2023 11:40 AM EDT DIFFERENTIAL, AUTOMATED Lab Routine HTN, goal below 140/90 Need for prophylactic vaccination and inoculation against influenza COPD, group D, by GOLD 2017 classification (HCC) PAF (paroxysmal atrial fibrillation) (HCC) Vitamin D deficiency Screening for prostate cancer Encounter for long-term (current) use of other medications 05/22/2023 11:40 AM EDT Health Maintenance Due Date Last Done Comments [...] encounter Visit Diagnoses Diagnosis HTN, goal below 140/90 Unspecified essential hypertension Need for prophylactic vaccination and inoculation against influenza COPD, group D, by GOLD 2017 classification (HCC) PAF (paroxysmal atrial fibrillation) (HCC) Atrial fibrillation Vitamin D deficiency Unspecified vitamin D deficiency Screening for prostate cancer Special screening for malignant neoplasm of prostate Encounter for long-term (current) use of other medications Asymptomatic microscopic hematuria documented in this encounter Care Teams Underwear Hemmer Relationship Specialty Start Date End Date Arun Alexandre MD [address] [place] [address] PCP - General Family Medicine 05/17/18 documented as of this encounter
--- OUTSIDE RECORDS SUMMARY | 2023-10-30 12:12 | External Medical Summary ---
Author Name Unknown Address Unknown Organization [id number]:[facility] - [address] [place] [address] Laboratory Report Ordering Provider Test Date Status JHONNY POSADA 05/22/2023 11:40:09 Final Deficient: <20 ng/mL
Ins ufficient: 20-29 ng/mL
Recommended/Optimum:30-50 ng/mL

Vitamin D intoxication is rare. If suspicious of Vitamin D toxicity, evaluation of serum Calcium and PTH is recommended. Observation Date Value Abnormality Reference (Units ) Status 25-OH Vitamin D total 05/22/2023 11:40:09 40 >19 (ng/mL) Final Performing Location [facility] - [address] [place] [address]
--- OUTSIDE RECORDS SUMMARY | 2023-10-30 12:12 | External Medical Summary | Summary of Care ---
Author Name Unknown Organization [facility] Address [address] [place] [address] Phone [phone] Care Team Providers Care Thickener Operator Name Role Phone Arun Alexandre MD Primary Care Provider + [phone] Reason for Visit * Reason Comments Referral * Evaluate & Treat - Unlimited Visits (Within 3 days (urgent)) - Authorized Specialty Diagnoses / Procedures Referred By Contac t Referred To Contact [facility] / Pharmacy Diagnoses HTN, goal below 140/90 Need for prophylactic vaccination and inoculation against influenza COPD, group D, by GOLD 2017 classification (HCC) PAF (paroxysmal atrial fibrillation) (HCC) Vitamin D deficiency Screening for prostate cancer Encounter for long-term (current) use of other medications Martin Lombardo MD [address] [facility] [address] Referral ID Status Reason Start Date Expiration Date Visits Requested Visits Authorized [id number] Authorized Specialty Services Required 05/22/2023 11/18/2023 99 99 Encounter Details Date Type Department Care Team Description 05/22/2023 Anticoagulation Pharmacy, [address] [place] [address] [place] [address] PAF (paroxysmal atrial fibrillation) ([facility]; Vitamin D deficiency; HTN, goal below 140/90; Encounter for long-term (current) use of other medications; Screening for prostate cancer; Need for prophylactic vaccination and inoculation against influenza; COPD, group D, by GOLD 2017 classification (HCC); Anticoagulation management encounter; Anticoagulant long-term use; senior living current use of 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 therapy Allergies Active [...] 2017 classification ([facility]) Inhale 1 Puff by mouth 2 times a day. 180 Each 3 05/16/2021 Active Spiriva Respimat 2.5 MCG/ACT Inhalation Aerosol SolutionIndications :COPD, group D, by GOLD 2017 classification ([facility]) Take 2 puffs once daily 12 g 3 05/16/2021 Active Montelukast Sodium 10 MG Oral Tablet (Singulair)Indicati ons:COPD, group D, by GOLD 2017 classification ([facility]) Take 1 Tab by mouth every evening. 90 Tab 3 05/16/2021 Active Fluticasone Propionate 50 MCG/ACT Nasal Suspension (Flonase)Indication s:COPD, group D, by GOLD 2017 classification ([facility]) Administer 2 Sprays into nostril daily. 16 [...] Oral Tablet (Coumadin)Indicatio ns:PAF (paroxysmal atrial fibrillation) (HCC),Anticoagulati on management encounter,Anticoagu lant long-term use Take 1 Tablet by mouth every evening. 30 Tablet 5 05/22/2023 Active Apixaban 5 MG Oral Tablet (Eliquis) Take 1 Tablet by mouth in the morning and 1 Tablet before bedtime. 0 04/14/2023 3 Discontinu ed(Formula ry/Cost) documented as of this encounter (statuses as [...] this encounter Progress Notes * Shahrzad Lombardi, [facility] - 05/22/2023 2:26 PM EDT Images from the original note were not included. Medication Therapy Disease Management - Anticoagulation Patient: Dru Galvan | : 1940 Subjective Received the following referral from Martin Lombardo MD Indication for Anticoagulation: Diagnosis: Atrial fibrillation Relevant History: none Initiation date of anticoagulation:04/11/2023 Expected duration of Anticoagulation therapy: Lifetime Target INR range (indicate desired range): Atrial Fibrillation 2.0 - 3.0 Contacts Type Contact Phone/Fax 05/22/2023 02:30 PM EDT Phone (Outgoing) Dru Galvan Bobby (Self) [phone] (M) Spoke to Patient Objective Current Warfarin Dose As of 05/22/2023 Warfarin maintenance plan: No maintenance plan INR Result As of 05/22/2023 INR goal: 2.0-3.0 INR used for dosin.3 (05/22/2023) Assessment & Plan Warfarin Plan As of 05/22/2023 Full warfarin instructions: 05/23: 5 mg; 05/24: 5 mg Next INR check: 05/25/2023 Patient is above the income cutoff for PACE/PACENET. Patient's takes coumadin and is familiar with routine INR monitoring etc. Instructed patient to take in the evening starting tomorrow- script sent to [facility] as requested. INR check scheduled for Thursday. 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 use 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 of 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 therapy 13 Occurrences starting 05/22/2023 until 11/21/2023 INR FINGERSTICK, POINT OF CARE Point of Care Testing - Unsolicited Results Routine PAF (paroxysmal atrial fibrillation) ([facility]) Anticoagulation management encounter Anticoagulant long-term use senior living current use of 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 therapy Every 2 Weeks for 26 Occurrences starting 05/22/2023 until 11/21/2023 Health Maintenance Due Date Last Done Comments [...] (paroxysmal atrial fibrillation) (HCC)- Primary Atrial fibrillation Vitamin D deficiency Unspecified vitamin D deficiency HTN, goal below 140/90 Unspecified essential hypertension Encounter for long-term (current) use of other medications Screening for prostate cancer Special screening for malignant neoplasm of prostate Need for prophylactic vaccination and inoculation against influenza COPD, group D, by GOLD 2017 classification (HCC) Anticoagulation management encounter Encounter for therapeutic drug monitoring Anticoagulant long-term use Long-term (current) use of 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s senior living current use of 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 therapy documented in this encounter Care Teams Thickener Operator Relationship Specialty Start Date End Date Arun Alexandre MD [address] [place] [address] PCP - General Family Medicine 05/17/18 documented as of this encounter"
--- OUTSIDE RECORDS SUMMARY | 2023-10-30 12:12 | External Medical Summary | Summary of Care ---
Author Name Unknown Organization [facility] Address [address] [place] [address] Phone [phone] Care Team Providers Care Touring Production Manager Name Role Phone Arun Alexandre MD Primary Care Provider [phone] Reason for Visit * Reason Onset Date Comments Encounter Created in Error 05/12/2023 Encounter Details Date Type Department Care Team Description 05/12/2023 [address]phone [address] [facility] [address] [facility] [address] Arun Alexandre MD [address] [facility] [place] [address] Encounter Created in Error Allergies Active Allergy Reactions Severity Noted Date Comments Isosorbide Nitrate 05/07/2021 Headache Pollen Other (Please comment) 01/17/2014 Runny nose, itchy eyes, nasal congestion documented as of this encounter (statuses as of 05/12/2023) Medications Medication Sig Dispensed Refills Start Date End Date Status CENTRUM SILVER PO TABS once daily 0 Active ASPIRIN 81 MG PO TABS once daily 0 Active tamsulosin (FLOMAX) 0.4 MG Capsule Take 1 Capsule by mouth in the morning. 0 01/15/2016 Active Multiple Vitamins-Minerals (PRESERVISION/LUTEIN ) Capsule Take [...] D, by GOLD 2017 classification ([facility]) Inhale 1 Puff by mouth 2 times a day. 180 Each 3 05/16/2021 Active Spiriva Respimat 2.5 MCG/ACT Inhalation Aerosol SolutionIndications: COPD, group D, by GOLD 2017 classification ([facility]) Take 2 puffs once daily 12 g 3 05/16/2021 Active Montelukast Sodium 10 MG Oral Tablet (Singulair)Indicatio ns:COPD, group D, by GOLD 2017 classification ([facility]) Take 1 Tab by mouth every evening. 90 Tab 3 05/16/2021 Active Fluticasone Propionate 50 MCG/ACT Nasal Suspension (Flonase)Indications :COPD, group D, by GOLD 2017 classification ([facility]) Administer 2 Sprays into nostril [...] BEFORE BEDTIME 90 Tablet 3 10/14/2022 Active Metoprolol Succinate ER 50 MG Oral Tablet Extended Release 24 Hour (Toprol XL) Take 1.5 Tablets by mouth in the morning. 135 Tablet 3 10/14/2022 Active Atorvastatin Calcium 10 MG Oral Tablet (Lipitor)Indications :Dyslipidemia, goal LDL below 70 TAKE 1 TABLET BY MOUTH DAILY 90 Tablet 3 03/30/2023 Active documented as of this encounter (statuses as of 05/12/2023) Active Problems Problem Noted Date PHT (pulmonary hypertension) 05/16/2021 ILD (interstitial lung disease) 05/16/20 21 Chronic respiratory failure with hypoxia 05/16/2021 Chronic diastolic heart failure 05/16/20 COPD, group D, by GOLD 2017 classificati [...] Encounters Date Type Specialty Care Team Description 05/12/2023 Office Visit Family Medicine Kay Haile DO [address] [place] [address] 07/28/2023 Office Visit Cardiology Nils Webb PA-C [address] [place] [address] Health Maintenance Due Date Last Done Comments COVID-19 Vaccine (#1) 02/13/1941 Pneumococcal Vaccine: 65+ Years (1 - PCV) 1946 Depression Screening 1953 Albumin/Creatinine Ratio 1959 O2 ASSESSMENT COMPLETED IN PAST YEAR FOR COPD 1959 DTaP,Tdap,and Td Vaccines (1 - Tdap) 1960 Zoster Vaccines (1 of 2) 1991 *ADVANCE DIRECTIVE NOT ON FILE 05/13/2020 GFR 01/06/2023 01/06/2022, 09/0 03/2020, 05/02/2019, Additional history exists Influenza Vaccine [...] filedocumented as of this encounter Care Teams Touring Production Manager Relationship Specialty Start Date End Date Arun Alexandre MD [address] [place] [address] PCP - General Family Medicine 05/17/18 documented as of this encounter
--- OUTSIDE RECORDS SUMMARY | 2023-10-30 12:12 | External Medical Summary ---
Author Name Unknown Address Unknown Organization K01:[facility] [place] [address] [place] [facility] [place] [address] Laboratory Report Ordering Provider Test Date Status JHONNY POSADA 05/22/2023 11:40:09 Final Observation Date Value Abnormality Reference (Units ) Status Triglyceride 05/22/2023 11:40:09 129 <=174 ( mg/dL) Final Triglyceride Reference Range s (mg/dL):
<150 Acceptable
150-174 Borderline high
175-499 High
>=500 Very high Cholesterol 05/22/2023 11:40:09 153 <200 (mg /dL) Final Total Cholesterol Reference Ranges (mg/dL):
<200 Desirable
200-239 Borderline high
>=240 High HDL 05/22/2023 11:40:09 44 >39 (mg/dL ) Final HDL Cholesterol Reference Ra nges (mg/dL):
>=60 High (Desirable)
<50 Low (Undesirable) For Females
<40 Low (Undesirable) For Males NON-HDL CHOLESTEROL 05/22/2023 11:40:09 109 <=159 (mg/dL) Final Non-HDL Cholesterol Referenc e Range (mg/dL):
<100 Target level for high risk ASCVD patient
<130 Optimal for general population
130-159 Near optimal for general population
160-189 Borderline High
190-219 High
>=220 Very High LDL, (calculated) 05/22/2023 11:40:09 83 <= 129 (mg/dL) Final LDL Cholesterol Reference Ra nges (mg/dL):
<70 Target level for high risk ASCVD patient
<100 Optimal for general population
100-129 Near optimal for general population
130-159 Borderline high
160-189 High
>=190 Very high Performing Location [facility] [place] [address] [facility] [address]
--- OUTSIDE RECORDS SUMMARY | 2023-10-30 12:12 | External Medical Summary | Summary of Care ---
Author Name Unknown Organization [facility] Address [address] [place] [address] Phone [phone] Care Team Providers Care Business Continuity Director Name Role Phone Giovanni Alexandre MD Primary Care Provider [phone] Reason for Referral * Evaluate & Treat [...] other medications Martin Lombardo MD [address] [place] [address] Referral ID Status Reason Start Date Expiration Date Visits Requested Visits Authorized [id number] Authorized Specialty Services Required 05/22/2023 11/18/2023 99 99 Question Answer Referral Priority Within 3 days (urgent) Where should this appointment be scheduled? [facility] Comments Indication for Anticoagulation: Diagnosis: Atrial fibrillation Relevant History: none Initiation date of anticoagulation:04/11/2023 Expected duration of Anticoagulation therapy: Lifetime Target INR range (indicate desired range): Atrial Fibrillation 2.0 - 3.0 Referral for Low Molecular Weight Therapy: N/A Minimum frequency patient should be seen in person for medication management: as appropriate per clinical condition and patient status By my signature, I understand that my patient Dru Galvan will have his medication therapy managed by the [facility] ([facility]) per established policies, procedures, and protocols. I also certify that this referral may serve as an initiation of service for the management of drug therapy in the above noted patient. [facility] providers will be responsible for scheduling patient visits, obtaining appropriate laboratory studies, and adjusting medication management therapy per patient's need, in addition to those roles spelled out in the clinic policy, procedures, and drug management protocols. I understand that the service provided by the [facility] Clinic is voluntary and have informed patient that they can refuse the service at their discretion. I am aware that the [facility] will provide me with a copy of the patient encounter via my [employer] [facility]. I authorize the [facility] to carry out these activities on my behalf. I consider this program to be a necessary part of the patient's medical care. Martin Lombardo MD * Evaluate & Treat - Unlimited Visits (Within 10 days (routine)) - Authorized Specialty Diagnoses / Procedures Referred By Contac t Referred To Contact Pharmacist / Pharmacy Diagnoses HTN, goal below 140/90 Need for prophylactic vaccination and inoculation against influenza COPD, group D, by GOLD 2017 classification (HCC) PAF (paroxysmal atrial fibrillation) (HCC) Vitamin D deficiency Screening for prostate cancer Encounter for long-term (current) use of other medications Martin Lombardo MD [address] [place] [address] Referral ID Status Reason Start Date Expiration Date Visits Requested Visits Authorized [id number] Authorized Specialty Services Required 05/22/2023 99 99 Question Answer Referral Priority Within 10 days (routine) Where should this appointment be scheduled? [facility] Department: Specialist Specialty: Pharmacogenomics Reason for Referral: Other Comments Pharmacist Medication Therapy Management: Minimum frequency patient should be seen in person for medication management: as appropriate per clinical condition and patient status By my signature, I understand that my patient Dru Galvan will have his medication therapy managed by the [facility] ([facility]) per established policies, procedures, and protocols. I also certify that this referral may serve as an initiation of service for the management of drug therapy in the above noted patient. [facility] providers will be responsible for scheduling patient visits, obtaining appropriate laboratory studies, and adjusting medication management therapy per patient's need, in addition to those roles spelled out in the clinic policy, procedures, and drug management protocols. I understand that the service provided by the [facility] is voluntary and have informed patient that they can refuse the service at their discretion. I am aware that the [facility] will provide me with a copy of the patient encounter via my [employer] [facility]. I authorize the [facility] to carry out these activities on my behalf. I consider this program to be a necessary part of the patient's medical care. Martin Lombardo MD Reason for Visit * Reason Onset Date Comments Hospital Follow-Up [facility] 04/05-03/18 05/09. Light headed when BP is low. SOB seems a little worse since starting eliquis. Denies chest pain, palpitations and edema. Medication Administration 05/22/2023 Flu an d/or Pneumo Inj Encounter Details Date Type Department Care Team Description 05/22/2023 Office Visit Cardiology, [facility] [address] [place] [id number] Martin Lombardo MD [address] [place] [id number] HTN, goal below 140/90*; Need for prophylactic vaccination and inoculation against influenza; COPD, group D, by GOLD 2017 classification ([facility]); PAF (paroxysmal atrial fibrillation) ([facility]); Vitamin D deficiency; Screening for prostate cancer; [...] ons:COPD, group D, by GOLD 2017 classification ([facility]) Take 1 Tab by mouth every evening. 90 Tab 3 05/16/2021 Active Fluticasone Propionate 50 MCG/ACT Nasal Suspension (Flonase)Indication s:COPD, group D, by GOLD 2017 classification ([facility] [...] the morning. 90 Tablet 3 05/22/2023 Active Magnesium 250 MG Oral Tablet Take 1 Tablet by mouth in the morning. 0 3 Discontinu ed(Patient preference /discontin uation) amLODIPine Besylate 2.5 MG Oral Tablet (Norvasc)Indication s:HTN, goal below 140/90 TAKE 1 TABLET BY MOUTH BEFORE BEDTIME 90 Tablet 3 10/14/2022 3 Discontinu ed(Patient preference /discontin uation) Metoprolol Succinate ER 50 MG Oral Tablet Extended Release 24 Hour (Toprol XL) Take 1.5 Tablets by mouth in the morning. 135 Tablet 3 10/14/2022 3 Discontinu ed(Refill) Pantoprazole Sodium 40 MG Oral Tablet Delayed Release (Protonix) Take 1 Tablet by mouth in the morning. 0 04/14/2023 3 Discontinu ed(Patient preference /discontin uation) documented as of this encounter (statuses as [...] Squamous cell carcinoma of skin of left sabianist 1 08/31/2018 09/28/2019 Squamous cell carcinoma in [...] Sign Reading Time Taken Comments Blood Pressure 148/72 05/22/2023 10:09 AM EDT Pulse 92 05/22/2023 10:09 AM EDT Temperature - - Respiratory Rate 18 05/22/2023 10:09 AM EDT Oxygen Saturation - - Inhaled Oxygen Concentration - - Weight 79.9 kg (176 lb 1.6 oz) 05/22/2023 10:09 AM EDT Height - - Body Mass Index 25.27 05/16/2021 11:28 AM EDT documented in this encounter Patient Instructions * Patient Instructions* Siva Samuel LPN - 05/22/2023 10:35 AM EDT ~~PATIENT INSTRUCTIONS FOR FLU SHOT~~ Possible side effects of influenza vaccine, (flu shot), are usually mild and include: 1. Soreness or redness at injection site 2. Low grade fever 3. Body aches You may use Tylenol/Acetaminophen as needed for these symptoms. LET YOUR DOCTOR KNOW IMMEDIATELY IF YOU HAVE DIFFICULTY BREATHING OR SWALLOWING, EXPERIENCE ITCHINGOF FEET OR HANDS, HAVE SWELLING OF EYES, FACE OR INSIDE OF NOSE. documented in this encounter Progress Notes * Siva Samuel LPN - 05/22/2023 10:35 AM EDT PRE - ADMINISTRATION DOCUMENTATION Are you experiencing any cold symptoms or fever? No Have you had Guillain-Hickman Syndrome (an illness that causes paralysis) within the last 6 weeks? No Have you had the flu shot in the past? YES Have you ever had a reaction to the flu shot? No Siva Samuel LPN, 05/22/2023 10:35 AM Immunization Administration Documentation Time Out Procedure Performed: Yes Patient Identified (Ask Name/Date of ): Yes Does the patient have a fever greater than 101 degrees today? No Patient allergic to latex? 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 Pulmonary hypertension. Frequent atrial and ventricular ectopy Hypertension. Hyperlipidemia. Familial history of premature coronary disease. 8. Type 2 diabetes mellitus, hemoglobin A1c 7 Patient presents today after a recent acute hospitalization April 05, 2023 with food bolus impaction and choking. Bolus spontaneously passed but the acute exacerbation and respiratory stridor in association such resulted in marked respiratory decline. Patient hospitalized with acute respiratory failure. During hospitalization metoprolol initially held and patient subsequently lapsed into atrial fibrillation with rapid response. On resumption of medication patient has spontaneously converted tosinus rhythm but was begun on anticoagulation with Eliquis Patient has been doing relatively well with only mild oozing at scratches anticoagulation but cost now prohibitive Heart rate and blood pressure have been controlled no further atrial arrhythmias No neurologic complaints Chronic respiratory status stable on 3 L nasal cannula around the clock Just started metformin for elevated hemoglobin A1c A Complete Review of Systems is as stated above or negative. 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, group D, by GOLD 2017 classification ([facility]) J44.9 PHT (pulmonary hypertension) ([facility]) I27.20 ILD (interstitial lung disease) ([facility]) J84.9 Chronic respiratory failure with hypoxia ([facility]) J96.11 Chronic diastolic heart failure ([facility]) I50.32 Vitamin B deficiency E53.9 Vitamin D deficiency E55.9 Encounter for long-term (current) use of other medications Z79.899 Screening for prostate cancer Z12.5 PAF (paroxysmal atrial fibrillation) ([facility]) I48.0 Need for prophylactic vaccination and inoculation against influenza Z23 Review of patient's allergies indicates: Allergen Reactions [...] Cap by mouth daily. 34 Cap 11 Fluticasone-Salmeterol 250-50 MCG/DOSE Inhalation Aerosol Powder Breath [...] by mouth in the morning. 25 mcg. ProAir HFA 108 (90 Base) MCG/ACT Inhalation Aerosol Solution Inhale by mouth 2 Puffs every 6 hours as needed for Shortness of Breath or Wheezing. 18 g 3 Furosemide 20 MG Oral Tablet (Lasix) [...] the morning and 1 Tablet before bedtime. Melatonin 1 MG Oral Tablet Chewable Take [...] mouth in the morning. 90 Tablet 3 ASPIRIN 81 MG PO TABS once [...] medications for this visit. OBJECTIVE/PHYSICAL EXAMINATION: BP 148/72 | Pulse 92 | Resp 18 | Wt 79.9 kg (176 lb 1.6 oz) | BMI 25.27 kg/m | BSA 1.99 m General: Age appropriate in no acute distress Head: normocephalic, no masses, lesions, tenderness or abnormalities Eyes: conjunctiva are pink and non-injected, sclera clear Throat: clear Nares: without discharge Neck: supple, no adenopathy, normal jugular venous pulse, no hepatojugular reflux, no carotid bruits Chest: normal shape and normal respiratory effort Lungs: clear to auscultation and percussion Cardiac Exam: - regular rate & rhythm, no murmur, gallop or rub - normal S-1, normal S-2 Abdomen: abdomen soft, non-tender, no abnormal masses, no hepatosplenomegaly, no abdominal bruit, no femoral bruit Musculoskeletal: no gait disturbance, no joint inflammation, no deforming arthritis Extremities: no edema, no cyanosis, pulses intact 2+/4 Neuro: grossly normal exam Data: EKG performed today, 05/22/2023 , and reviewed personally : Sinus rhythm with premature atrial beats rate 94 beats per minute poor progression V1 V2 Echocardiogram per report April 09, 2023 There is mild left ventricular hypertrophy with normal wall motion EF 60 to 65% Grade 1 diastolic dysfunction Moderate aortic sclerosis with mild aortic insufficiency Mild mitral and tricuspid insufficiency with moderate elevation pulmonary pressures estimated PA pressure 46 mm Hg May 11, 2020 Coronary Angiography ([facility]: Right dominant coronary anatomy with moderate diffuse [...] saturation 73% on 2 L nasal cannula ASSESSMENT: 82 year old year old male Referred for management of paroxysmal atrial fibrillation addition to underlying moderate coronary athero sclerosus and chronic obstructive lung disease. Acute episode appeared to be exacerbated by acute respiratory failure and beta-harpreet withdrawal. Patient remains at high risk for recurrence PLAN: Discussed atrial fibrillation and its management in detail with patient. Currently in sinus rhythm using beta-harpreet intermittently Will make metoprolol succinate 50 mg daily without interruption Anticoagulation indications also discussed. Patient with chads Vasc 2 score of 4 Would recommend continued anticoagulation no Eliquis currently cost prohibitive. Will refer to coagclinic for conversion to warfarin Lab work ordered today completing lab work requested by PCP Discussed pantoprazole. Would continue given recent esophageal obstruction, food bolus Flu shot administered today DISPOSITION: Return as scheduled July Martin Lombardo MD Cardiology, [address] [address] I spent a total of 40-54 minutes (exact time 45 mins) on the date of service in preparation, delivery, and documentation of the care provided to Dru Galvan excluding any time spent in the performance of separately billed services. documented in this encounter Nursing Notes * Siva Samuel, JET MECHANIC - 05/22/2023 10:09 AM EDT Patient identified by full name and date of Chief Complaint Patient presents with Hospital Follow-Up [facility] 04/05-04/14/23. Light headed when BP is low. SOB seems a little worse since starting eliquis. Denies chest pain, palpitations and edema. Examination Room: 14 Name: Dru Galvan Date of : (1940). Reason for Visit: HD follow up Interim Hospitalization(s): [facility] 04/05-04/14/23 Problems/Concerns: See chief complaint Chest Pain/SOB: See chief complaint [facility] Discussed: Not applicable [facility] is a way you can talk to [...] Nils Webb PA-C [address] [place] [address] Pending Results Name Type Priority Associated Diagnoses Date /Time LIPID PANEL WITH DIRECT LDL IF TG IS HIGH Lab Routine HTN, goal below 140/90 Need for prophylactic vaccination and inoculation against influenza COPD, group D, by GOLD 2017 classification (HCC) PAF (paroxysmal atrial fibrillation) (HCC) Vitamin D deficiency Screening for prostate cancer Encounter for long-term (current) use of other medications 05/22/2023 11:40 AM EDT TSH WITH FREE T4 IF INDICATED Lab Routine HTN, goal below 140/90 Need [...] by GOLD 2017 classification ([facility]) PAF (paroxysmal atrial fibrillation) ([facility]) Vitamin D deficiency Screening for prostate cancer Encounter for long-term (current) use of other medications 05/22/2023 11:40 AM EDT PSA Lab Routine HTN, goal below 140/90 Need for prophylactic vaccination and inoculation against influenza COPD, group D, by GOLD 2017 classification ([facility]) PAF (paroxysmal atrial fibrillation) ([facility]) Vitamin D deficiency Screening for prostate cancer Encounter for long-term (current) use of other medications Asymptomatic microscopic hematuria 05/22/2023 11:40 AM EDT Scheduled Orders Name Type Priority Associated Diagnoses Orde r Schedule EKG EKG Routine HTN, goal below 140/90 Ordered: 05/22/2023 LIPID PANEL WITH DIRECT LDL IF TG IS HIGH Lab Routine HTN, goal below 140/90 Need for prophylactic vaccination and inoculation against influenza COPD, group D, by GOLD 2017 classification ([facility]) PAF (paroxysmal atrial fibrillation) ([facility]) Vitamin D deficiency Screening for prostate cancer Encounter for long-term (current) use of other medications Expected: 05/22/2023, Expires: 05/22/2024 MAGNESIUM Lab Routine HTN, goal below 140/90 Need for prophylactic vaccination and inoculation against influenza COPD, group D, by GOLD 2017 classification ([facility]) PAF (paroxysmal atrial fibrillation) ([facility]) Vitamin D deficiency Screening for prostate cancer Encounter for long-term (current) use of other medications Expected: 05/22/2023, Expires: 05/22/2024 25-HYDROXY VITAMIN D Lab Routine HTN, goal below 140/90 Need for prophylactic vaccination and inoculation against influenza COPD, group D, by GOLD 2017 classification ([facility]) PAF (paroxysmal atrial fibrillation) ([facility]) Vitamin D deficiency Screening for prostate cancer Encounter for long-term (current) use of other medications Expected: 05/22/2023, Expires: 05/22/2024 VITAMIN B12 Lab Routine HTN, goal below 140/90 Need for prophylactic vaccination and inoculation against influenza COPD, group D, by GOLD 2017 classification ([facility]) PAF (paroxysmal atrial fibrillation) ([facility]) Vitamin D deficiency Screening for prostate cancer Encounter for long-term (current) use of other medications Expected: 05/22/2023, Expires: 05/22/2024 PSA Lab Routine HTN, goal below 140/90 Need for prophylactic vaccination and inoculation against influenza COPD, group D, by GOLD 2017 classification ([facility]) PAF (paroxysmal atrial fibrillation) ([facility]) Vitamin D deficiency Screening for prostate cancer Encounter for long-term (current) use of other medications Asymptomatic microscopic hematuria Expected: 05/22/2023, Expires: 05/22/2024 Scheduled Referrals Name Type Priority Associated Diagnoses Orde r Schedule PHARMACIST MEDS THERAPY MGMT REFERRAL OP Referral Within 10 days (routine) HTN, goal below 140/90 Need for prophylactic vaccination and inoculation against influenza COPD, group D, by GOLD 2017 classification ([facility]) PAF (paroxysmal atrial fibrillation) ([facility]) Vitamin D deficiency Screening for prostate cancer Encounter for long-term (current) use of other medications Ordered: 05/22/2023 ANTI-COAGULATION REFERRAL OP Referral Within 3 days (urgent) HTN, goal below 140/90 Need for prophylactic vaccination and inoculation against influenza COPD, group D, by GOLD 2017 classification ([facility]) PAF (paroxysmal atrial fibrillation) ([facility]) Vitamin D deficiency Screening for prostate cancer Encounter for long-term (current) use of other medications Ordered: 05/22/2023 Health Maintenance Due Date Last Done Comments [...] Not on filedocumented as of this encounter Results * (ABNORMAL) PT INR (05/22/2023 11:40 AM EDT) Prothrombin Time 16.0(H) 11.6 - 15.2 seconds 05/22/2023 12:09 PM EDT [facility] INR 1.3(H) 0.8 - 1.2 05/22/2023 12:09 PM EDT [facility] Blood Venous blood specimen / Unknown Venipuncture / Unknown 05/22/2023 11:40 AM EDT 05/22/2023 11:41 AM EDT Narrative [facility] - 05/22/2023 12:09 PM EDT Warfarin Therapy INR: 2.0-3.0 conventional anticoagulation INR: 2.5-3.5 high intensity anticoagulation Martin Lombardo MD LAB BLOOD ORDERABLES [facility] [address] [place] [address] documented in this encounter Visit Diagnoses Diagnosis HTN, goal below 140/90- Primary Unspecified essential hypertension Need for prophylactic vaccination and inoculation against influenza COPD, group D, by GOLD 2017 classification (HCC) PAF (paroxysmal atrial fibrillation) (HCC) Atrial fibrillation Vitamin D deficiency Unspecified vitamin D deficiency Screening for prostate cancer Special screening for malignant neoplasm of prostate Encounter for long-term (current) use of other medications Asymptomatic microscopic hematuria documented in this encounter Care Teams Business Continuity Director Relationship Specialty Start Date End Date Giovanni Alexandre MD [address] [place] [address] PCP - General Family Medicine 05/17/18 documented as of this encounter"
--- OUTSIDE RECORDS SUMMARY | 2023-10-30 12:12 | External Medical Summary | Summary of Care ---
Author Name Unknown Organization [facility] Address [address] [place] [address] Phone [phone] Care Team Providers Care Piano Mover Name Role Phone Arun Alexandre MD Primary Care Provider Reason for Visit * Reason Onset Date Comments Medication Question 05/19/2023 Appointment 05/19/2023 Encounter Details Date Type Department Care Team Description 05/19/2023 Telephone [address]iology, [facility] [address] [place] [phone] Nils Webb PA-C [address] [place] [id number] Medication Question; Appointment Allergies Active Allergy Reactions Severity Noted Date Comments Isosorbide Nitrate 05/07/2021 Headache Pollen Other (Please comment) 01/17/2014 Runny nose, itchy eyes, nasal congestion documented as of this encounter (statuses as of 05/19/2023) Medications Medication Sig Dispensed Refills Start Date [...] OPD, group D, by GOLD 2017 classification ([facility]) Inhale 1 Puff by mouth 2 times a day. 180 Each 3 05/16/2021 Active Spiriva Respimat 2.5 MCG/ACT Inhalation Aerosol SolutionIndications: COPD, group D, by GOLD 2017 classification ([facility]) Take 2 puffs once daily 12 g 3 05/16/2021 Active Montelukast Sodium 10 MG Oral Tablet (Singulair)Indicatio ns:COPD, group D, by GOLD 2017 classification ([facility]) Take 1 Tab by mouth every evening. 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, R dorsal hand, R scalp 2018, L dorsal wrist 06/07), basal cell carcinoma (L forearm, L preauricular region 09/2019) AK (actinic keratosis) 05/24/2014 Overview: Efudex 04/2014 documented as of this encounter (statuses as of 05/19/2023) Resolved Problems Problem Noted Date Resolved Date Squamous cell carcinoma of skin of left jain 1 08/31/2018 09/28/2019 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/26/2019 09/28/2019 COPD, severe 06/07/2018 02/28/2021 Overview: Per COPD GOLD Classification SCC (squamous cell carcinoma), face 05/03/2014 06/13/2015 Overview: L lateral forehead documented as of this encounter (statuses as of 05/19/2023) Immunizations Name Administration Dates Next Due SEASONAL INFLUENZA, PF, 6 M & Above, IM , (FLULAVAL or FLUZONE) 06/07/2018 Seasonal Influenza, Trivalent, Adjuvanted, 65+ y [...] encounter Miscellaneous Notes * Telephone Encounter - VITALY Raygoza - 05/19/2023 9:52 AM EDT Spoke wit Pt's . HD appt scheduled for 05/[address] Lombardo. * Telephone Encounter - VITALY Arias - 05/19/2023 9:21 AM EDT Good morning, Patient went to wrong location for his hospital discharge appointment with Dr. Lombardo, not scheduleduntil Dec with Nils, PCP wants him seen sooner. Patient also has questions about Eliquis, making him SOB and cannot afford it, wants to discuss with nurse. Please advise. Thanks documented in this encounter Plan of Treatment Upcoming Encounters Date Type Specialty Care Team Description 05/22/2023 Office Visit Cardiology Martin Lombardo MD [address] [place] [id number] 07/28/2023 Office Visit Cardiology Nils Webb PA-C [address] [place] [id number] Health Maintenance Due Date Last Done Comments Pneumococcal Vaccine: 65+ Years (1 - PCV) 1947 Depression Screening 1953 Albumin/Creatinine Ratio 1959 DTaP,Tdap,and Td Vaccines (1 - Tdap) 1960 Zoster Vaccines (1 of 2) 1991 *ADVANCE DIRECTIVE NOT ON FILE 05/13/2020 GFR 01/06/2023 01/06/2022, 03/2020, 05/02/2019, Additional history exists COVID-19 Vaccine (3 - 2022- season) 2023 10/12/2020, 09/14/2020 Influenza Vaccine (FLU shot) (#1) 2023 05/09/2020, 06/07/2018, 05/05/2016 O2 ASSESSMENT COMPLETED IN PAST YEAR FOR COPD 05/12/2024 05/12/2023 Alpha-1 Antitrypsin Completed 05/09/2020 [facility]-HPV IMMUNIZATION SERIES [...] filedocumented as of this encounter Care Teams Piano Mover Relationship Specialty Start Date End Date Arun Alexandre MD [address] [place] [address] PCP - General Family Medicine 05/17/18 documented as of this encounter
--- OUTSIDE RECORDS SUMMARY | 2023-10-30 12:12 | External Medical Summary ---
Author Name Unknown Address Unknown Organization [id number]:[facility] [address] [place] [address] Laboratory Report Ordering Provider Test Date Status JHONNY POSADA 05/22/2023 11:40:09 Final Observation Date Value Abnormality Reference (Units ) Status PSA 05/22/2023 11:40:09 0.24 <4.10 (ng/ mL) Final Performing Location [facility] - [address] [place] [address]
--- OUTSIDE RECORDS SUMMARY | 2023-10-30 12:12 | External Medical Summary ---
Author Name Unknown Address Unknown Organization [id number]:[facility] [place] - [address] [place] [id number] Laboratory Report Ordering Provider Test Date Status JHONNY POSADA 05/22/2023 11:40:09 Final Observation Date Value Abnormality Reference (Units ) Status Vitamin B12 05/22/2023 11:40:09 [id number] (pg/mL) Final Performing Location [facility] - [address] [place] [id number]
--- OUTSIDE RECORDS SUMMARY | 2023-10-30 12:12 | External Medical Summary ---
Author Name Unknown Address Unknown Organization K01:[facility] - [address] [place] [address] Laboratory Report Ordering Provider Test Date Status JHONNY POSADA 05/22/2023 11:40:09 Final Observation Date Value Abnormality Reference (Units ) Status Magnesium 05/22/2023 11:40:09 2.8 Above high normal 1. 5-2.6 (mg/dL) Final Performing Location [facility] - [address] [place] [address]
--- OUTSIDE RECORDS SUMMARY | 2023-10-30 12:12 | External Medical Summary ---
Author Name Unknown Address Unknown Organization K01:[facility] [place] - [address] [facility] [address] Laboratory Report Ordering Provider Test Date Status JHONNY POSADA 05/22/2023 11:40:09 Final Observation Date Value Abnormality Reference (Units ) Status TSH 05/22/2023 11:40:09 1.56 0.27-4.20 (uIU/mL) Final Performing Location [facility] [place] - [address] [facility] [address]
[2023-10-30] MEDS: UMECLIDINIUM BROMIDE 62.5MCG/BLISTER 7 PUFFS/INHALER INH SCH (15:31)
[2023-10-30] MEDS: WARFARIN SOD 2.5 MG TAB PO SCH (15:32)
[2023-10-30] MEDS: AZITHROMYCIN 250 MG TAB PO ONE (15:33)
--- NOTE | 2023-10-30 17:46 | Hospitalist Progress Note ---
Date of Service October 30, 2023 Assessment & Plan (1) Acute and chronic respiratory failure with hypoxia: (2) Acute diastolic CHF (congestive heart failure): (3) COPD (chronic obstructive pulmonary disease): (4) JOSEFINA (acute kidney injury): (5) Atrial fibrillation with RVR: (6) Hyperkalemia: (7) Type 2 diabetes mellitus: (8) Esophageal dysmotility: Plan 83-year-old male with PMH of CAD, dyslipidemia, HTN, aspiration pneumonia, COPD, A-fib with RVR, CHF, esophageal dysmotility, and T2DM presenting with respiratory distress. History and clinical picture more consistent with COPD exacerbation as opposed to CHF exacerbation. (1) Acute and chronic respiratory failure with hypoxia: BioFire negative Continue supplemental O2 as needed 2) CHF (congestive heart failure): BNP elevated at 768 on admission Home Lasix 20 mg p.o. daily, hold in the setting of relative hpotension (3) COPD (chronic obstructive pulmonary disease): IV methylprednisolone 40mg BID Azithromycin for pulmonary anti-inflammatory effect LABA/LAMA/ICS (4) JOSEFINA (acute kidney injury): Downtrending Cr, AM Cr 1.58 Avoid nephrotoxic agents Continue to monitor with daily BMP (5) Atrial fibrillation with RVR: EKG on arrival revealed A-fib with RVR at 119 bpm On warfarin; INR 2.1 on arrival Continue warfarin, metoprolol Trend PT/INR (6) Hyperkalemia - Resolved: Recheck a.m. BMP (7) Type 2 diabetes mellitus: Last A1c at 7.3% on 04/13/2023 Glucose 122 on admission Hold metformin, dapagliflozin Recommend increased basal bolus in the setting of steroid use/JOSEFINA Pharmacy glycemic consult Lantus 12u BID; SSI w/ target range 110-140 T2DM diet BSG ACHS Adjust regimen as needed (8) Esophageal dysmotility: Aspiration precautions Disposition: PT/OT DNR/DNI AHA, T2DM, low-sodium diet (1800 mL fluid restriction) VTE PPx: On warfarin Admission and Anticipated Discharge Date Admission Date: October 29, 2023 Supervising Physician Co-Signing Physician Notes I personally examined the patient and verified all dinh points of history and exam, discussed case, and agree with decision making with Dr Foley Feeling better, but still has a good bit of orthopnea. A little bit difficult to glean baseline breathing, but it sounds like orthopnea is at least relatively new. He notes largely that it seems hard to to discern his baseline because he got a pneumonia in August, has been in and out of the hospital and rehabs, and had COVID, so he has had significant respiratory illnesses over the last 2 months making it hard to really glean where he is at in the illness/recovery process. He was home for a couple of days before getting more short of breath and coming back to the hospital here. His breathing does feel better today than yesterday. Vitals noted, in general he is awake and alert pleasant no distress, although of note while he does not complain of dyspnea, as our conversation progresses he does have a little bit of conversational dyspnea. His lungs are overall clear even with amplified auscultation, but are quite diminished throughout. No rales rhonchi or wheezes but also decreased breath sounds. No accessory muscle use, at rest he shows no overt dyspnea, but once we are talking for a while he starts show conversational dyspnea. HypoxiaI suspect this is predominantly, if not all, COPD exacerbationit is hard to rule out that he has some degree of concomitant acute on chronic diastolic CHFbut given how low his blood pressure is, but given that he does not have a truly brittle cardiomyopathy, and he does not show overt signs of pulmonary edema at this time, I do not think further diuresis would be favorable given the impact on his blood pressure. Obviously need to continue to follow this closely. In the meantime, steroids, supportive care, inhalers, time. anticoagulated Subjective Pt evaluated at bedside this morning, noted to be in mild respiratory distress despite O2 via NC. Patient notes SOB minimal at rest but significant even with mild exertion. +orthopnea. Denies chest pain. Denies fever/chills. Review of Systems Review of Systems: as per HPI Physical Exam Physical Exam: General: Alert and oriented. No acute distress Cardiac: Regular rate and rhythm, no murmurs appreciated Respiratory: Diminished breath sounds throughout, mild wheezes appreciated. Abdominal: Soft, non-tender, non-distended. Bowel sounds present. Extremities: trace pitting edema in bilateral LEs Results & Data Results & Data Vital Signs (Past 12 Hours) Vital Signs Temp Pulse Pulse Resp BP Pulse Ox Pulse Ox 10/30/23 16:27 92 10/30/23 15:22 36.3 C L 100 H 20 99/64 L 90 10/30/23 11:24 36.3 C L 103 H 22 91/46 L 90 10/30/23 10:58 10/30/23 09:55 86 10/30/23 07:16 36.6 C 95 H 18 91/52 L 90 O2 Del Method O2 Del Method O2 Flow Rate O2 Flow Rate 10/30/23 16:27 Free Flow/Blow-by 6 10/30/23 15:22 Nasal Cannula 4 10/30/23 11:24 Nasal Cannula 4 10/30/23 10:58 Nasal Cannula 4 10/30/23 09:55 10/30/23 07:16 Nasal Cannula 4 Resident Activity Tracking Resident Involvement: Resident Care Provided Care Provided: Adult Hospital Medicine
--- NOTE | 2023-10-30 18:46 | Billing Data ---
Date of Service October 30, 2023 Coding Level of Care Code 20721 SUB INP/OBS CARE MIN
--- NOTE | 2023-10-30 18:46 | Billing Data ---
Date of Service October 30, 2023 Coding Level of Care Code 06112 SUB INP/OBS CARE MIN
--- NOTE | 2023-10-31 06:44 | Electrocardiogram Report ---
Test Reason : Blood Pressure : / mmHG Vent. Rate : 119 BPM Atrial Rate : 000 BPM P-R Int : 000 ms QRS Dur : 078 ms QT Int : 326 ms P-R-T Axes : 000 075 058 degrees QTc Int : 458 ms Atrial fibrillation with rapid ventricular response with premature ventricular or aberrantly conducte d complexes Abnormal ECG When compared with ECG of 11-APR-2023 10:13, No significant change was found Confirmed by Heriberto Cruz ([id number]) on 10/31/2023 6:44:13 AM Referred By: Confirmed By:Heriberto Cruz
[2023-10-31 07:43] LABS: Eosinophils # (auto) 0.06 K/uL (0.00-0.50); Eosinophils % (auto) 0.6 %; Hematocrit (blood only) 34.4 % (42.0-52.0); Hemoglobin 11.6 g/dl (14.0-18.0); Immature Granulocytes # (auto) 0.05 K/uL (0.01-0.20); Immature Granulocytes % (auto) 0.5 %; Lymphocytes % (auto) 26.7 %; Mean Corpuscular Hemoglobin 30.5 pg (25.0-34.0); Mean Corpuscular Hgb Conc 33.7 g/dL (32.0-36.0); Mean Corpuscular Volume 90.5 fL (80.0-100.0); Mean Platelet Volume 11.7 fL (9.4-12.4); Monocytes # (auto) 0.75 K/uL (0.11-0.59); Monocytes % (auto) 7.4 %; Neutrophils # (auto) 6.55 K/uL (1.40-6.50); Neutrophils % (auto) 64.8 %; Platelet Count 141 K/uL (130-400); RDW Standard Deviation 71.8 fL (36.4-46.3); White Blood Count 10.11 K/ul (4.8-10.8)
--- NOTE | 2023-10-31 07:43 | Hospitalist Progress Note ---
Date of Service October 31, 2023 Assessment & Plan (1) Acute and chronic respiratory failure with hypoxia: (2) Acute diastolic CHF (congestive heart failure): (3) COPD (chronic obstructive pulmonary disease): (4) JOSEFINA (acute kidney injury): (5) Atrial fibrillation with RVR: (6) Hyperkalemia: (7) Type 2 diabetes mellitus: (8) Esophageal dysmotility: Plan Pt is an 83-year-old male with PMH of CAD, dyslipidemia, HTN, aspiration pneumonia, COPD, A-fib with RVR, CHF, esophageal dysmotility, and T2DM that presented to the hospital on 10/28 with respiratory distress, admitted for most likely COPD exac over CHF exac. Today, pending PT/OT recs for dispo planning since he is at his baseline breathing and O2 requirement (if not a bit better). Continue IV steroids today and likely to transition to po tomorrow. #Acute and chronic respiratory failure with hypoxia in the setting of COPD exac more than CHF exac - BioFire negative, continue supplemental O2 as needed - continue IV methylpred 40 mg BID - continue azithryomycin for anti-inflamm effects - continue LABA/LAMA/ICS #CHF (congestive heart failure) - last echo 10/29/23; 55-60%, no wall abnormalities - BNP elevated at 768 on admission, but respiratory issue seems most likely related to COPD exac - Home Lasix 20 mg p.o. daily, hold in the setting of relative hypotension #JOSEFINA (acute kidney injury), improving - Baseline Cr likely 1.0-1.2, on admission 1.9, downtrending, today 1.44 - Avoid nephrotoxic agents - Continue to monitor with daily BMP #Atrial fibrillation with RVR - EKG on arrival revealed A-fib with RVR at 119 bpm - On warfarin; INR 2.1 on arrival - Continue warfarin, metoprolol - Trend PT/INR #Type 2 diabetes mellitus - Last A1c at 7.3% on 04/13/2023 - Glucose 122 on admission - Hold metformin, dapagliflozin in setting of JOSEFINA - Pharmacy glycemic consult, Lantus 12u BID; SSI w/ target range 110-140 #Esophageal dysmotility Aspiration precautions AHA, T2DM, low-sodium diet (1800 mL fluid restriction) VTE PPx: On warfarin Admission and Anticipated Discharge Date Admission Date: October 29, 2023 Supervising Physician Co-Signing Physician Notes I personally examined the patient and verified all dinh points of history and exam, discussed case, and agree with decision making with Dr Dominguez breathing a little better. Feels weak. Vitals noted, in general he is awake and alert pleasant no distress. HEENT normocephalic atraumatic mucous membranes moist. Lungs are diminished air entry but no rales rhonchi or wheezesBreathing unlabored no accessory muscle use good effort. Skin shows no rashes no pallor or icterus. Neuro without focal deficits. HypoxiaI suspect this is predominantly, if not all, COPD exacerbationit is hard to rule out that he has some degree of concomitant acute on chronic diastolic CHFbut given how low his blood pressure is, but given that he does not have a truly brittle cardiomyopathy, and he does not show overt signs of pulmonary edema at this time, I do not think further diuresis would be favorable given the impact on his blood pressure. Obviously need to continue to follow this closely. showing slow improvementsteroids, supportive care, azithromycin, inhalers, time. PT/OT, may need rehab. Subjective Pt is an 83-year-old male with PMH of CAD, dyslipidemia, HTN, aspiration pneu monia, COPD, A-fib with RVR, CHF, esophageal dysmotility, and T2DM that presented to the hospital on 10/28 with respiratory distress, admitted for most likely COPD exac over CHF exac. Today, pt states he is feeling fine. He states his current breathing is about baseline for him at home and he is on 5 L O2 at home during the day. He states he spent all of August and September in rehab and just got out two weeks ago but after only a week at home he states he was definitely starting to struggle getting around. He states when he left rehab he was able to walk over 100 feet but a week after being home he was starting to struggle to walk around even a fraction of that distance, so he anticipates he may need more rehab. Otherwise, feeling fine today with no questions or complaints. Review of Systems Review of Systems: Per HPI. Physical Exam Physical Exam: General:Alert and oriented, no acute distress, HEENT: Normocephalic, moist oral mucosa, Cardio: Regular rate and rhythm, no murmur, Resp:Lungs clear to auscultation b/l, no wheezes or rhonchi, but very poor air movement throughout all dyson, some increased work of breathing without respiratory distress noted GI: Soft and nontender, nondistended, bowel sounds active Skin: Warm, pink, dry, Results & Data Results & Data Vital Signs (Past 12 Hours) Vital Signs Temp Pulse Pulse Resp BP BP Pulse Ox 10/31/23 03:07 36.5 C 96 H 16 114/71 97 10/30/23 23:12 36.4 C L 105 H 16 104/69 94 10/30/23 22:01 109 H 10/30/23 20:53 10/30/23 20:27 36.4 C L 112 H 18 115/66 93 O2 Del Method O2 Flow Rate 10/31/23 03:07 High Flow Nasal Cannula 2 10/30/23 23:12 Room Air 10/30/23 22:01 10/30/23 20:53 High Flow Nasal Cannula 6 10/30/23 20:27 Nasal Cannula 6 Resident Activity Tracking Resident Involvement: Resident Care Provided Care Provided: Adult Hospital Medicine
[2023-10-31 08:11] LABS: BUN Creatinine Ratio 27.8 (10-20); Calcium 8.6 mg/dl (8.6-10.3); Creatinine Clr Calc Pharmacy 39.4 ml/min; Est GFR (Non-African American) 44.9 ml/min; Potassium 4.3 mmol/L (3.5-5.1)
[2023-10-31] MEDS: AZITHROMYCIN 250 MG TAB PO SCH (08:12)
[2023-10-31 08:22] LABS: Acanthocytes 1+; Echinocytes 1+; Polychromasia 1+
[2023-10-31] MEDS ORDERED: ALBUT/IPRATROP 3MG/0.5MG NEB 3 ML VIAL NEB PRN (08:48)
--- NOTE | 2023-10-31 18:19 | Billing Data ---
Date of Service October 31, 2023 Coding Level of Care Code 34860 SUB INP/OBS CARE MIN
--- NOTE | 2023-11-01 07:05 | Hospitalist Progress Note ---
Date of Service November 01, 2023 Assessment & Plan (1) Acute and chronic respiratory failure with hypoxia: (2) Acute diastolic CHF (congestive heart failure): (3) COPD (chronic obstructive pulmonary disease): (4) JOSEFINA (acute kidney injury): (5) Atrial fibrillation with RVR: (6) Hyperkalemia: (7) Type 2 diabetes mellitus: (8) Esophageal dysmotility: Plan Pt is an 83-year-old male with PMH of CAD, dyslipidemia, HTN, aspiration pneumonia, COPD, A-fib with RVR, CHF, esophageal dysmotility, and T2DM that presented to the hospital on 10/28 with respiratory distress, admitted for most likely COPD exac over CHF exac. Today, pending PT/OT recs for dispo planning since he is at his baseline breathing and O2 requirement. Continue IV steroids today and maybe tomorrow with D/C on long taper. #Acute and chronic respiratory failure with hypoxia in the setting of COPD exac more than CHF exac - BioFire negative, continue supplemental O2 as needed - continue azithryomycin for anti-inflamm effects - continue LABA/LAMA/ICS - IV methylpred 40 mg BID, continue IV today #CHF (congestive heart failure) - last echo 10/29/23; 55-60%, no wall abnormalities - BNP elevated at 768 on admission, but respiratory issue seems most likely related to COPD exac - Home Lasix 20 mg p.o. daily, held in the setting of relative hypotension on admission and continued to hold due to JOSEFINA, restart on discharge #JOSEFINA (acute kidney injury), improving - Baseline Cr likely 1.0-1.2, on admission 1.9, downtrending, 1.44, 1.25 - Avoid nephrotoxic agents - Continue to monitor with daily BMP #Atrial fibrillation with RVR - EKG on arrival revealed A-fib with RVR at 119 bpm - On warfarin; INR 2.1 on arrival - Continue warfarin, metoprolol - Trend PT/INR #Type 2 diabetes mellitus - Last A1c at 7.3% on 04/13/2023 - Glucose 122 on admission - Hold metformin, dapagliflozin in setting of JOSEFINA - Pharmacy glycemic consult, Lantus 12u BID; SSI w/ target range 110-140 #Esophageal dysmotility Aspiration precautions AHA, T2DM, low-sodium diet (1800 mL fluid restriction) VTE PPx: On warfarin Admission and Anticipated Discharge Date Admission Date: October 29, 2023 Supervising Physician Co-Signing Physician Notes I personally examined the patient and verified all dinh points of history and exam, discussed case, and agree with decision making with Dr Dominguez breathing continues to feel slightly better each day, still fairly dyspneic on exertion. Notes that he did reasonably well with therapy being able to walk to the door and backand that his dyspnea was much more of a limiter in his p erformance than pure weakness. Vitals noted, in general he is awake and alert pleasant no distress. HEENT normocephalic atraumatic mucous membranes moist. Lungs are diminished air entry but slightly better than days prior,no rales rhonchi or wheezes. Breathing unlabored no accessory muscle use good effort. Skin shows no rashes no pallor or icterus. Neuro without focal deficits. HypoxiaI suspect this is predominantly, if not all, COPD exacerbationit is hard to rule out that he had some degree of concomitant acute on chronic diastolic CHFbut given how low his blood pressure is, but given that he does not have a truly brittle cardiomyopathy, and he does not show overt signs of pulmonary edema at this time, I do not think further diuresis would be favorable given the impact on his blood pressure (although today his pressures are up that we would have more wiggle room, but I still do not think he is an active failureand generally think his orthopnea probably relates to his COPD especially given how long-lasting it has been). Obviously need to continue to follow this closely. showing slow improvementsteroids, supportive care, azithromycin, inhalers, time. scheduled nebs today given that he was not getting them on the as needed order. PT/OT, may need rehabBut as he is improving, it is also possible that once his breathing allows for it he may perform well enough with therapy to be able to get home instead. Subjective Pt is an 83-year-old male with PMH of CAD, dyslipidemia, HTN, aspiration pneumonia, COPD, A-fib with RVR, CHF, esophageal dysmotility, and T2DM that presented to the hospital on 10/28 with respiratory distress, admitted for most likely COPD exac over CHF exac. Today, he states he maybe feels a little better than yesterday or about the same. No questions or complaints at this point otherwise. Review of Systems Review of Systems: Per HPI. Physical Exam Physical Exam: General:Alert and oriented, no acute distress, HEENT: Normocephalic, moist oral mucosa, Cardio: Regular rate and rhythm, no murmur, Resp:Lungs clear to auscultation b/l, no wheezes or rhonchi, but very poor air movement throughout all dyson that is improved from yesterday, still some increased work of breathing without respiratory distress noted Skin: Warm, pink, dry, Results & Data Results & Data Vital Signs (Past 12 Hours) Vital Signs Temp Pulse Pulse Resp BP Pulse Ox O2 Del Method 11/01/23 03:08 36.2 C L 92 H 19 130/78 97 High Flow Nasal Cannula 10/31/23 23:11 36.4 C L 83 19 113/65 96 High Flow Nasal Cannula 10/31/23 22:01 92 H 10/31/23 20:49 High Flow Nasal Cannula 10/31/23 19:07 36.3 C L 104 H 22 100/66 90 High Flow Nasal Cannula O2 Flow Rate 11/01/23 03:08 6 10/31/23 23:11 6 10/31/23 22:01 10/31/23 20:49 5 10/31/23 19:07 6 Resident Activity Tracking Resident Involvement: Resident Care Provided Care Provided: Adult Hospital Medicine
[2023-11-01 07:18] LABS: Basophils # (auto) 0.01 K/uL (0.00-0.20); Basophils % (auto) 0.1 %; Eosinophils % (auto) 0.9 %; Hematocrit (blood only) 35.3 % (42.0-52.0); Hemoglobin 11.7 g/dl (14.0-18.0); Immature Granulocytes # (auto) 0.05 K/uL (0.01-0.20); Immature Granulocytes % (auto) 0.5 %; Lymphocytes # (auto) 2.85 K/uL (1.20-3.40); Lymphocytes % (auto) 27.1 %; Mean Corpuscular Hemoglobin 30.1 pg (25.0-34.0); Mean Corpuscular Hgb Conc 33.1 g/dL (32.0-36.0); Mean Corpuscular Volume 90.7 fL (80.0-100.0); Mean Platelet Volume 11.2 fL (9.4-12.4); Monocytes # (auto) 0.78 K/uL (0.11-0.59); Monocytes % (auto) 7.4 %; Neutrophils # (auto) 6.74 K/uL (1.40-6.50); Platelet Count 139 K/uL (130-400); RDW Coefficient of Variation 21.6 % (11.5-14.5); RDW Standard Deviation 71.2 fL (36.4-46.3); Red Blood Count 3.89 M/uL (4.70-6.10); White Blood Count 10.53 K/ul (4.8-10.8)
[2023-11-01 07:31] LABS: Calcium 8.6 mg/dl (8.6-10.3); Est GFR (African American) 61.8 ml/min; Est GFR (Non-African American) 53.3 ml/min
[2023-11-01 07:36] LABS: Anisocytosis Present; Polychromasia 1+
[2023-11-01 08:20] LABS: INR 3.6 (0.9-1.1); Prothrombin Time 36.8 Seconds (9.0-12.0)
[2023-11-01] MEDS: ALBUT/IPRATROP 3MG/0.5MG NEB 3 ML VIAL NEB SCH ×2 (12:39→15:28)
--- NOTE | 2023-11-01 17:51 | Billing Data ---
Date of Service November 01, 2023 Coding Level of Care Code 53048 SUB INP/OBS CARE MIN
[2023-11-01] MEDS: traZODone HCL 50 MG TAB PO PRN (21:58)
[2023-11-02 07:01] LABS: Basophils # (auto) 0.01 K/uL (0.00-0.20); Basophils % (auto) 0.1 %; Eosinophils # (auto) 0.11 K/uL (0.00-0.50); Hematocrit (blood only) 37.8 % (42.0-52.0); Hemoglobin 12.3 g/dl (14.0-18.0); Immature Granulocytes # (auto) 0.05 K/uL (0.01-0.20); Immature Granulocytes % (auto) 0.5 %; Lymphocytes # (auto) 3.06 K/uL (1.20-3.40); Lymphocytes % (auto) 29.1 %; Mean Corpuscular Hemoglobin 30.4 pg (25.0-34.0); Mean Corpuscular Hgb Conc 32.5 g/dL (32.0-36.0); Mean Corpuscular Volume 93.3 fL (80.0-100.0); Monocytes # (auto) 0.75 K/uL (0.11-0.59); Monocytes % (auto) 7.1 %; Neutrophils # (auto) 6.52 K/uL (1.40-6.50); Neutrophils % (auto) 62.2 %; Platelet Count 146 K/uL (130-400); RDW Coefficient of Variation 21.4 % (11.5-14.5); RDW Standard Deviation 72.8 fL (36.4-46.3); Red Blood Count 4.05 M/uL (4.70-6.10)
[2023-11-02 07:25] LABS: BUN Creatinine Ratio 23.5 (10-20); Calcium 8.6 mg/dl (8.6-10.3); Creatinine Clr Calc Pharmacy 43.3 ml/min; Est GFR (African American) 57.8 ml/min; Est GFR (Non-African American) 49.9 ml/min; Potassium 4.1 mmol/L (3.5-5.1)
[2023-11-02 07:26] LABS: Anisocytosis Present; Polychromasia 1+; Rouleaux 1+
[2023-11-02 07:29] LABS: INR 2.8 (0.9-1.1); Prothrombin Time 28.6 Seconds (9.0-12.0)
[2023-11-02] MEDS: AZITHROMYCIN 250 MG TAB PO SCH (08:22)
--- NOTE | 2023-11-02 08:49 | Pharmacy Report ---
Pharmacy Glycemic Short Note 2 - Date of Service November 02, 2023 - Glycemic Short BSG Results (Last 24 hours): 11/01/23 11/01/23 11/01/23 11:12 16:15 20:05 Glucose POC Glucose 116 H 131 H 144 H 11/02/23 11/02/23 06:35 07:35 Glucose 77 POC Glucose 79 OUTPATIENT ANTIDIABETIC REGIMEN: * Farxiga 10 mg PO QAM * Metformin 500 mg PO BID HbA1c: 6.9% on 10/30/23 ASSESSMENT: 11/02/23: * Blood sugars well-controlled yesterday, ranging 86-144 mg/dL w/ fasting BSG of 79 mg/dL this morning * Received 18 units of insulin (8 units of which were basal) * Given fasting BSG in 70s today, will hold today's basal and trial bolus only * Steroids have now been increased from methylprednisolone 40 mg IV daily to 40 mg IV q8h * Will add back basal and slightly tighten Novolog parameters 10/30/23: * 83 y/o M admitted for acute on chronic respiratory failure, JOSEFINA. He was recently admitted for pneumonia. History of Type 2 diabetes. * Holding oral anti-diabetic home meds while admitted and utilizing basal + bolus insulin for glycemic control while admitted. * Basal insulin 12 units based on stress of 2 given last night. Reduced to basal 8 units once daily this morning since fasting BSG = 93 mg/dl. * Novolog parameters were initiated based on stress between 2 and 3. Pre-lunch BSG trended down to 85 mg/dl. Parameters loosened with lunch. PLAN FOR INPATIENT GLYCEMIC CONTROL: * Hold outpatient oral diabetes medications * Basal insulin * Lantus 8 units SC daily * Bolus insulin * NovoLog per scale ACHS or Q6hrs while NPO * Goal Range: Low 110 mg/dL - High 140 mg/dL * Correction Factor: 35 mg/dL/unit * Nutritional / Prandial insulin per carb ratio of 1 unit per 12 grams CHO consumed
[2023-11-02] MEDS ORDERED: LANTUS PER UNIT CHARGE SC SCH (09:00)
--- NOTE | 2023-11-02 10:31 | Hospitalist Progress Note ---
Date of Service November 02, 2023 Assessment & Plan (1) Acute and chronic respiratory failure with hypoxia: (2) Acute diastolic CHF (congestive heart failure): (3) COPD (chronic obstructive pulmonary disease): (4) JOSEFINA (acute kidney injury): (5) Atrial fibrillation with RVR: (6) Hyperkalemia: (7) Type 2 diabetes mellitus: (8) Esophageal dysmotility: Plan Pt is an 83-year-old male with PMH of CAD, dyslipidemia, HTN, aspiration pneumonia, COPD, A-fib with RVR, CHF, esophageal dysmotility, and T2DM that presented to the hospital on 10/28 with respiratory distress, admitted for COPD exacerbation Today, continue IV steroids today and plan to D/C on long taper. 1. Acute and chronic respiratory failure with hypoxia in the setting of COPD exac more than CHF exac - BioFire negative, continue supplemental O2 as needed - continue azithromycin for anti-inflamm effects - continue LABA/LAMA/ICS - IV methylpred 40 mg BID, continue IV today - PT consulted to determine respiratory needs to be safe and comfortable at home. PT yashal found that he required 6L O2 at rest to maintain pulse ox >88%, became hypoxic at 79% w/ 20sec of standing activity, requiring an increase to 10L for adequate recovery. PT stated a goal of returning home while maintaining a pulse ox >85% on appropriate supplemental O2. 2. CHF (congestive heart failure) - last echo 10/29/23; 55-60%, no wall abnormalities - BNP elevated at 768 on admission, but respiratory issue seems most likely related to COPD exac - Home Lasix 20 mg p.o. daily, held in the setting of relative hypotension on admission and continued to hold due to JOSEFINA, restart on discharge 3. JOSEFINA (acute kidney injury), improving - Baseline Cr likely 1.0-1.2, on admission 1.9, downtrending to 1.25, 1.32 today - Avoid nephrotoxic agents - Continue to monitor with daily BMP 4. Atrial fibrillation with RVR - EKG on arrival revealed A-fib with RVR at 119 bpm - On warfarin; INR 2.1 on arrival - Continue warfarin, metoprolol - Trend PT/INR 5. Type 2 diabetes mellitus - Last A1c at 7.3% on 04/13/2023 - Glucose 122 on admission - Pharmacy glycemic evaluation recommendations: Hold outpatient oral diabetes medications, Basal insulin -> Lantus 8 units SC daily, Bolus insulin -> NovoLog per scale ACHS or Q6hrs while NPO. Goal Range -> Low 110 mg/dL - High 140 mg/dL. Correction Factor: 35 mg/dL/unit. Nutritional / Prandial insulin per carb ratio of 1 unit per 12 grams CHO consumed. 6. Esophageal dysmotility Aspiration precautions AHA, T2DM, low-sodium diet (1800 mL fluid restriction) VTE PPx: On warfarin Admission and Anticipated Discharge Date Admission Date: October 29, 2023 Supervising Physician Co-Signing Physician Notes ATTESTATION I also saw the patient and confirmed dinh portions of the history and exam. I agree with the impression and plan in the resident documentation, and as summarized below. Patient states that he slept well last night, better than he had before. Breathing is improved but not yet at his baseline. EXAM 123/64, 103, 20, 36.5, 96% on nasal cannula at 6 L/min Alert and oriented. Pleasant. No extra work of breathing at rest Lungs are diminished throughout, though no focal findings nor wheezing Heart is irregularly irregular, auscultated rate around 90 DATA Labs WBC 10.5, hemoglobin 12.3, platelet count 146 Sodium 140, potassium 4.1, BUN 31, creatinine 1.32 IMPRESSION & PLAN Acute on chronic respiratory failure with hypoxia, COPD CHF JOSEFINA, improving Atrial fibrillation, controlled ventricular response Increase Solu-Medrol to twice daily Check chest x-ray in a.m. Appears euvolemic, JOSEFINA improved, although will will likely need to resume diuresis tomorrow Additional per resident documentation Subjective Pt is an 83-year-old male with PMH of CAD, dyslipidemia, HTN, aspiration pneumonia, COPD, A-fib with RVR, CHF, esophageal dysmotility, and T2DM that presented to the hospital on 10/28 with respiratory distress, admitted for COPD exacerbation. Today, he states he thinks he is at his baseline. No questions or complaints at this point otherwise. He mentioned that he did not like the care he received in [place] and would prefer to be discharged to [facility] if rehab is necessary. Review of Systems Review of Systems: Constitutional: denies fever, chills HEENT: denies congestion, sore throat Cardio: denies chest pain, + palpitations ->(hx afib w/ RVR) Resp: denies cough, + Shortness of breath ->(Severe COPD at baseline, 5L NC @ home) GI: denies abdominal pain, nausea, vomiting, constipation, diarrhea : denies pain with urination, change in urinary frequency, + Urinary hesitancy Neuro: denies new numbness, tingling, weakness Physical Exam Physical Exam: General:Alert and oriented, no acute distress, HEENT: Normocephalic, moist oral mucosa, Cardio: no murmur, + Irregular rate and rhythm ->(afib w/ RVR) Resp:Lungs clear to auscultation b/l, no wheezes or rhonchi, + very poor air movement in all dyson, + increased work of breathing w/o respiratory distress noted Skin: Warm, pink, dry. Results & Data Results & Data Vital Signs (Past 12 Hours) Vital Signs Temp Pulse Pulse Resp BP Pulse Ox O2 Del Method 11/02/23 07:48 36.3 C L 95 H 18 126/65 93 High Flow Nasal Cannula 11/02/23 07:06 88 18 97 Nasal Cannula 11/02/23 06:45 94 H 11/02/23 03:33 36.5 C 92 H 20 109/68 95 Nasal Cannula 11/01/23 23:41 99 H 11/01/23 23:40 102 H 20 91 Nasal Cannula 11/01/23 23:12 36.3 C L 98 H 20 110/68 92 Nasal Cannula O2 Flow Rate 11/02/23 07:48 5 11/02/23 07:06 7 11/02/23 06:45 11/02/23 03:33 7 11/01/23 23:41 11/01/23 23:40 7 11/01/23 23:12 7 Laboratory Results 11/02/23 11/02/23 11/02/23 11:14 07:35 06:35 WBC 10.50 RBC 4.05 L Hgb 12.3 L Hct 37.8 L MCV 93.3 MCH 30.4 MCHC 32.5 RDW Std Deviation 72.8 H RDW Coeff of Whitney 21.4 H Plt Count 146 MPV 11.0 Immature Gran % (Auto) 0.5 Neut % (Auto) 62.2 Lymph % (Auto) 29.1 [place] % (Auto) 7.1 Eos % (Auto) 1.0 Baso % (Auto) 0.1 Neut # (Auto) 6.52 H Lymph # (Auto) 3.06 [place] # (Auto) 0.75 H Eos # (Auto) 0.11 Baso # (Auto) 0.01 Immature Gran # (Auto) 0.05 Polychromasia 1+ Anisocytosis Present Rouleaux 1+ PT 28.6 H INR 2.8 H Sodium 140 Potassium 4.1 Chloride 110 H Carbon Dioxide 24 Anion Gap 6 BUN 31 H Creatinine 1.32 Est Cr Clr Drug Dosing 43.3 Est GFR ( Amer) 57.8 Est GFR (Non-Af Amer) 49.9 BUN/Creatinine Ratio 23.5 H Glucose 77 POC Glucose 151 H 79 Calcium 8.6 11/01/23 11/01/23 20:05 16:15 POC Glucose 144 H 131 H Medications Administered Albuterol (Albut/Ipratrop 3mg/0.5mg Neb 3 Ml Vial) 3 ml NEB Q8R [facility]; Protocol Stop: 12/01/23 14:59 Last Admin: 11/02/23 07:06 Dose: 3 ml Documented By: Admin: 11/01/23 23:39 Dose: 3 ml Documented By: Admin: 11/01/23 15:28 Dose: 3 ml Documented By: JENNIFER Atorvastatin Calcium (Atorvastatin 10 Mg Tab) [facility] [place] Stop: 11/29/23 08:59 Last Admin: 11/02/23 08:19 Dose: 10 mg Documented By: Admin: 11/01/23 08:40 Dose: 10 mg Documented By: Admin: 10/31/23 08:12 Dose: 10 mg Documented By: Admin: 10/30/23 08:23 Dose: 10 mg Documented By: CLAUDIA Azithromycin (Azithromycin 250 Mg Tab) 500 mg PO QAM [facility] Stop: 11/09/23 08:59 Last Admin: 11/02/23 08:22 Dose: 500 mg Documented By: ALONZO Fluticasone/Vilanterol (Fluticasone/Vilanterol 100/25mcg 14 Puffs/Inhaler) 1 puffs INH DAILY [facility] Stop: 11/29/23 08:59 Last Admin: 11/02/23 08:18 Dose: 1 puffs Documented By: Admin: 11/01/23 08:40 Dose: 1 puffs Documented By: Admin: 10/31/23 08:13 Dose: 1 puffs Documented By: Admin: 10/30/23 08:24 Dose: 1 puffs Documented By: CLAUDIA Guaifenesin (Guaifenesin 600 Mg Tabcr) 1,200 mg PO Q12 MIN Stop: 11/28/23 20:59 Last Admin: 11/02/23 08:20 Dose: 1,200 mg Documented By: Admin: 11/01/23 20:31 Dose: 1,200 mg Documented By: Admin: 11/01/23 08:40 Dose: 1,200 mg Documented By: Admin: 10/31/23 20:28 Dose: 1,200 mg Documented By: Admin: 10/31/23 08:12 Dose: 1,200 mg Documented By: Admin: 10/30/23 20:42 Dose: 1,200 mg Documented By: Admin: 10/30/23 08:23 Dose: 1,200 mg Documented By: Admin: 10/29/23 21:02 Dose: 1,200 mg Documented By: CHESTER Co-signed By: DIMAS Hydroxyzine HCl (Hydroxyzine Hcl 10 Mg Tab) 10 mg PO TID PRN PRN Reason: anxiety Stop: 11/28/23 16:26 Last Admin: 11/01/23 21:57 Dose: 10 mg Documented By: Admin: 10/31/23 22:18 Dose: 10 mg Documented By: Admin: 10/31/23 08:12 Dose: 10 mg Documented By: Admin: 10/29/23 21:39 Dose: 10 mg Documented By: DIMAS Insulin Aspart (Insulin Aspart Per Unit Charge) 0 units SC ACHS MIN Stop: 11/28/23 16:29 Last Admin: 11/02/23 08:16 Dose: Not Given Documented By: Admin: 11/01/23 20:30 Dose: 4 units Documented By: DIMAS Co-signed By: DES Admin: 11/01/23 16:53 Dose: 2 units Documented By: ASHA Co-signed By: ERMIAS Admin: 11/01/23 11:46 Dose: 4 units Documented By: ASHA Co-signed By: DTT Admin: 11/01/23 08:33 Dose: Not Given Documented By: Admin: 10/31/23 20:28 Dose: 7 units Documented By: DIMAS Co-signed By: FLORENCE Admin: 10/31/23 17:05 Dose: 2 units Documented By: ASHA Co-signed By: JODI Admin: 10/31/23 11:49 Dose: 4 units Documented By: ASHA Co-signed By: JODI Admin: 10/31/23 08:09 Dose: 3 units Documented By: ASHA Co-signed By: ERMIAS Admin: 10/30/23 20:41 Dose: 2 units Documented By: DIMAS Co-signed By: DORIS Admin: 10/30/23 16:57 Dose: 3 units Documented By: CLAUDIA Co-signed By: JODI Admin: 10/30/23 11:51 Dose: 4 units Documented By: CLAUDIA Co-signed By: JODI Admin: 10/30/23 08:21 Dose: 4 units Documented By: CLAUDIA Co-signed By: LETY Admin: 10/29/23 21:03 Dose: 1 units Documented By: CHESTER Co-signed By: DIMAS Admin: 10/29/23 19:09 Dose: 3 units Documented By: ALICIA Co-signed By: DIMAS Melatonin (Melatonin 3 Mg Tab) 3 mg PO HS PRN PRN Reason: Sleep Stop: 11/28/23 16:26 Last Admin: 10/31/23 22:18 Dose: 3 mg Documented By: Admin: 10/29/23 21:39 Dose: 3 mg Documented By: DIMAS Metoprolol Succinate (Metoprolol Succ 50mg Ext Rel Tab) 50 mg PO QAM [facility] Stop: 11/29/23 08:59 Last Admin: 11/02/23 08:21 Dose: 50 mg Documented By: Admin: 11/01/23 08:40 Dose: 50 mg Documented By: Admin: 10/31/23 08:12 Dose: 50 mg Documented By: Admin: 10/30/23 08:23 Dose: Not Given Documented By: CLAUDIA Montelukast Sodium (Montelukast Sodium 10 Mg Tablet) 10 mg PO QAM [facility] Stop: 11/29/23 08:59 Last Admin: 11/02/23 08:19 Dose: 10 mg Documented By: Admin: 11/01/23 08:40 Dose: 10 mg Documented By: Admin: 10/31/23 08:12 Dose: 10 mg Documented By: Admin: 10/30/23 08:23 Dose: 10 mg Documented By: CLAUDIA Trazodone HCl (Trazodone Hcl 50 Mg Tab) 50 mg PO HS PRN PRN Reason: Insomnia Stop: 12/01/23 12:50 Last Admin: 11/01/23 21:58 Dose: 50 mg Documented By: DIMAS Umeclidinium [place] (Umeclidinium [place] 62.5mcg/Blister 7 Puffs/Inhaler) 1 puffs INH QAM [facility] Stop: 11/29/23 14:44 Last Admin: 11/02/23 08:18 Dose: 1 puffs Documented By: Admin: 11/01/23 08:39 Dose: 1 puffs Documented By: Admin: 10/31/23 08:13 Dose: 1 puffs Documented By: Admin: 10/30/23 15:31 Dose: 1 puffs Documented By: CLAUDIA Warfarin Sodium (Warfarin Sod 2.5 Mg Tab) 2.5 mg PO DAILY@1600 [facility] Stop: 11/29/23 15:59 Last Admin: 10/31/23 17:06 Dose: 2.5 mg Documented By: Admin: 10/30/23 15:32 Dose: 2.5 mg Documented By: CLAUDIA
--- NOTE | 2023-11-02 11:33 | Hospitalist Progress Note ---
Date of Service November 02, 2023 Assessment & Plan (1) Acute and chronic respiratory failure with hypoxia: (2) Acute diastolic CHF (congestive heart failure): (3) COPD (chronic obstructive pulmonary disease): (4) JOSEFINA (acute kidney injury): (5) Atrial fibrillation with RVR: (6) Hyperkalemia: (7) Type 2 diabetes mellitus: (8) Esophageal dysmotility: Plan Pt is an 83-year-old male with PMH of CAD, dyslipidemia, HTN, aspiration pneumonia, COPD, A-fib with RVR, CHF, esophageal dysmotility, and T2DM that presented to the hospital on 10/28 with respiratory distress, admitted for most likely COPD exac over CHF exac. Today, pending PT/OT recs for dispo planning since he is at his baseline breathing and O2 requirement. Continue IV steroids today and maybe tomorrow with D/C on long taper. #Acute and chronic respiratory failure with hypoxia in the setting of COPD exac more than CHF exac - BioFire negative, continue supplemental O2 as needed - azithryomycin 500 daily (day1/3) - continue LABA/LAMA/ICS - IV methylpred 40 mg BID, continue IV today #CHF (congestive heart failure) - last echo 10/29/23; 55-60%, no wall abnormalities - BNP elevated at 768 on admission, but respiratory issue seems most likely related to COPD exac - Home Lasix 20 mg p.o. daily, held in the setting of relative hypotension on admission and continued to hold due to JOSEFINA, restart on discharge #JOSEFINA (acute kidney injury), improving - Baseline Cr likely 1.0-1.2, on admission 1.9, downtrending, 1.44, 1.25 - Avoid nephrotoxic agents - Continue to monitor with daily BMP #Atrial fibrillation with RVR - EKG on arrival revealed A-fib with RVR at 119 bpm - On warfarin; INR 2.1 on arrival - Continue warfarin, metoprolol - Trend PT/INR #Type 2 diabetes mellitus - Last A1c at 7.3% on 04/13/2023 - Glucose 122 on admission - Hold metformin, dapagliflozin in setting of JOSEFINA - Pharmacy glycemic consult, Lantus 12u BID; SSI w/ target range 110-140 #Esophageal dysmotility Aspiration precautions AHA, T2DM, low-sodium diet (1800 mL fluid restriction) VTE PPx: On warfarin Admission and Anticipated Discharge Date Admission Date: October 29, 2023 Subjective Pt is an 83-year-old male with PMH of CAD, dyslipidemia, HTN, aspiration pneumonia, COPD, A-fib with RVR, CHF, esophageal dysmotility, and T2DM that presented to the hospital on 10/28 with respiratory distress, admitted for COPD exacerbation. Patient seen and evaluated at bedside this morning. No acute events overnight. Feels he is ~70% back to baseline He mentioned that he did not like the care he received in [place] and would prefer to be discharged to [facility] if rehab is necessary. Review of Systems Review of Systems: reviewed, per HPI Physical Exam Physical Exam: Constitutional: well-appearing, no acute distress HEENT: NCAT, no conjunctival injection CV: irregular rhythm, no murmur appreciated, extremities well-perfused, no LE edema Resp: CTABL, no wheezes/rales/rhonchi appreciated, no increased work of breathing MSK: no gross deformities appreciated Skin: warm, dry, no rash appreciated Neuro: alert, oriented, no focal neurologic deficit appreciated Results & Data Results & Data Vital Signs (Past 12 Hours) Vital Signs Temp Pulse Pulse Resp BP Pulse Ox O2 Del Method 11/02/23 07:48 36.3 C L 95 H 18 126/65 93 High Flow Nasal Cannula 11/02/23 07:06 88 18 97 Nasal Cannula 11/02/23 06:45 94 H 11/02/23 03:33 36.5 C 92 H 20 109/68 95 Nasal Cannula 11/01/23 23:41 99 H 11/01/23 23:40 102 H 20 91 Nasal Cannula O2 Flow Rate 11/02/23 07:48 5 11/02/23 07:06 7 11/02/23 06:45 11/02/23 03:33 7 11/01/23 23:41 11/01/23 23:40 7
[2023-11-02] MEDS: LANTUS PER UNIT CHARGE SC ONE (12:07)
[2023-11-02] MEDS ORDERED: methylPREDNISolone 40 MG in SYRINGE 0 ML IV SCH (15:00)
[2023-11-02] MEDS: methylPREDNISolone 40 MG in SYRINGE 0 ML IV SCH (22:29)
[2023-11-03 07:30] LABS: Basophils # (auto) 0.01 K/uL (0.00-0.20); Basophils % (auto) 0.1 %; Hematocrit (blood only) 36.9 % (42.0-52.0); Immature Granulocytes # (auto) 0.07 K/uL (0.01-0.20); Immature Granulocytes % (auto) 0.7 %; Lymphocytes # (auto) 1.21 K/uL (1.20-3.40); Lymphocytes % (auto) 12.8 %; Mean Corpuscular Hemoglobin 30.2 pg (25.0-34.0); Mean Corpuscular Hgb Conc 32.5 g/dL (32.0-36.0); Mean Corpuscular Volume 92.9 fL (80.0-100.0); Mean Platelet Volume 12.6 fL (9.4-12.4); Monocytes # (auto) 0.33 K/uL (0.11-0.59); Monocytes % (auto) 3.5 %; Neutrophils # (auto) 7.83 K/uL (1.40-6.50); Neutrophils % (auto) 82.9 %; Platelet Count 157 K/uL (130-400); RDW Standard Deviation 71.2 fL (36.4-46.3); Red Blood Count 3.97 M/uL (4.70-6.10); White Blood Count 9.45 K/ul (4.8-10.8)
[2023-11-03 07:48] LABS: INR 1.8 (0.9-1.1); Prothrombin Time 19.3 Seconds (9.0-12.0)
[2023-11-03 07:51] LABS: BUN Creatinine Ratio 27.5 (10-20); Calcium 8.6 mg/dl (8.6-10.3); Est GFR (African American) 64.9 ml/min; Potassium 4.6 mmol/L (3.5-5.1)
[2023-11-03 07:52] LABS: Anisocytosis Present; Echinocytes 1+; Macrocytosis Present; Polychromasia 1+
[2023-11-03] MEDS: LANTUS PER UNIT CHARGE SC SCH (08:22)
--- NOTE | 2023-11-03 12:09 | XRay Report ---
SINGLE VIEW CHEST CLINICAL HISTORY: Pleural effusion FINDINGS: An AP, portable, upright chest radiograph is compared to study dated 10/29/2023 and correlat ed with chest CT dated 04/08/2023. The heart is enlarged noting atherosclerotic calcification of the t horacic aorta. The pulmonary vasculature is noncongested. Enlargement of the central pulmonary vessel s indicates pulmonary artery hypertension. Advanced emphysema and chronic interstitial thickening is similar to previous. There are small pleural effusions with bibasilar consolidation. Irregular airspa ce opacities again seen in the left upper lobe/lingula No pneumothorax is seen. The skeletal structur es are osteopenic. The bony thorax is grossly intact. IMPRESSION: 1. Cardiomegaly and advanced emphysema without radiographic evidence of congestive failure. 2. Small pleural effusions with bibasilar consolidation. 3. An irregular opacity in the left upper lobe/lingula is likely unchanged. ACT 112: Negative or not required by law. Electronically signed by: Kennedy Pulido M.D. 11/03/2023 12:08 PM
--- NOTE | 2023-11-03 12:19 | Hospitalist Progress Note ---
Date of Service November 03, 2023 Assessment & Plan (1) Acute and chronic respiratory failure with hypoxia: (2) Acute diastolic CHF (congestive heart failure): (3) COPD (chronic obstructive pulmonary disease): (4) JOSEFINA (acute kidney injury): (5) Atrial fibrillation with RVR: (6) Hyperkalemia: (7) Type 2 diabetes mellitus: (8) Esophageal dysmotility: Plan Pt is an 83-year-old male with PMH of CAD, dyslipidemia, HTN, aspiration pneumonia, COPD, A-fib with RVR, CHF, esophageal dysmotility, and T2DM that presented to the hospital on 10/28 with respiratory distress, admitted for COPD exacerbation Today, pt improved so plan to continue IV steroids, obtain CXR to reassess lungs and airway, restart diuretic, and lift 1800mL fluid restriction. 1. Acute and chronic respiratory failure with hypoxia in the setting of COPD exac more than CHF exac - BioFire negative, continue supplemental O2 as needed - continue azithromycin for anti-inflamm effects - continue LABA/LAMA/ICS - IV methylpred 40 mg BID, continue IV today - Today, obtain CXR to reassess lungs and airway. 2. CHF (congestive heart failure) - last echo 10/29/23; 55-60%, no wall abnormalities - BNP elevated at 768 on admission, but respiratory issue seems most likely related to COPD exac - Home Lasix 20 mg p.o. daily, held in the setting of relative hypotension on admission and JOSEFINA. Restart today because respiratory symptoms improved to avoid unnecessary fluid retention. - Lift 1800mL fluid restriction now that patient is no longer in respiratory distress. 3. JOSEFINA (acute kidney injury), improving - Baseline Cr likely 1.0-1.2, on admission 1.9, downtrending to 1.32, 1.20 today - Avoid nephrotoxic agents - Continue to monitor with daily BMP 4. Atrial fibrillation with RVR - EKG on arrival revealed A-fib with RVR at 119 bpm - On warfarin; INR 2.1 on arrival - Continue warfarin, metoprolol - Trend PT/INR 5. Type 2 diabetes mellitus - Last A1c at 7.3% on 04/13/2023 - Glucose 122 on admission - Pharmacy glycemic evaluation recommendations: Hold outpatient oral diabetes medications, Basal insulin -> Lantus 8 units SC daily, Bolus insulin -> NovoLog per scale ACHS or Q6hrs while NPO. Goal Range -> Low 110 mg/dL - High 140 mg/dL. Correction Factor: 35 mg/dL/unit. Nutritional / Prandial insulin per carb ratio of 1 unit per 12 grams CHO consumed. 6. Esophageal dysmotility Aspiration precautions AHA, T2DM, low-sodium diet (1800 mL fluid restriction) VTE PPx: On warfarin Admission and Anticipated Discharge Date Admission Date: October 29, 2023 Supervising Physician Co-Signing Physician Notes ATTESTATION I also saw the patient and confirmed dinh portions of the history and exam. I agree with the impression and plan in the student/resident documentation, and as summarized below. Patient notes that he feels quite bit better this morning compared to yesterday; the best he is felt since admission. Getting close to baseline per his estimation. EXAM 113/74, 98, 18, 36.4, 93% nasal cannula at 6 L/min Alert and oriented. Pleasant. No extra work of breathing at rest Lungs with increased air movement throughout, no focal findings nor wheezing. Heart is irregularly irregular, auscultated rate around 90 DATA Labs Hemoglobin 12.0, platelet count 157 INR 1.8 Sodium 138, potassium 4.6, BUN 33, creatinine 1.2 IMPRESSION & PLAN Acute on chronic respiratory failure with hypoxia, COPD CHF JOSEFINA, improving Atrial fibrillation, controlled ventricular response Continue Solu-Medrol twice daily Resume home diuretics; BMP in a.m. Nearing his baseline oxygen demand; will look to increase activity tomorrow Adjust warfarin given slightly subtherapeutic INR today Additional per resident documentation Subjective Pt is an 83-year-old male with PMH of CAD, dyslipidemia, HTN, aspiration pneumonia, COPD, A-fib with RVR, CHF, esophageal dysmotility, and T2DM that presented to the hospital on 10/28 with respiratory distress, admitted for COPD exacerbation. Pt states that breathing has improved from yesterday saying, "I'm not 100%, but I'm closer to normal" No questions or complaints at this point otherwise. Review of Systems Review of Systems: Constitutional: denies fever, chills HEENT: denies congestion, sore throat Cardio: denies chest pain, + palpitations ->(hx afib w/ RVR) Resp: denies cough, + Shortness of breath ->(Severe COPD at baseline, 5L NC @ home) GI: denies abdominal pain, nausea, vomiting, constipation, diarrhea : denies pain with urination, change in urinary frequency Neuro: denies new numbness, tingling, weakness Physical Exam Physical Exam: General:Alert and oriented, no acute distress, HEENT: Normocephalic, moist oral mucosa, Cardio: no murmur, + Irregular rate and rhythm ->(afib w/ RVR) Resp:Lungs clear to auscultation b/l, no wheezes or rhonchi, + poor air movement in all dyson Skin: Warm, pink, dry. Results & Data Results & Data Vital Signs (Past 12 Hours) Vital Signs Temp Pulse Pulse Resp BP Pulse Ox O2 Del Method 11/03/23 11:09 36.4 C L 98 H 18 113/74 93 Nasal Cannula 11/03/23 07:35 36.4 C L 89 18 118/74 95 Nasal Cannula 11/03/23 07:26 91 H 16 93 Nasal Cannula 11/03/23 04:42 88 11/03/23 03:14 36.7 C 82 18 116/73 97 Nasal Cannula O2 Flow Rate 11/03/23 11:09 6 11/03/23 07:35 6 11/03/23 07:26 6 11/03/23 04:42 11/03/23 03:14 6 Laboratory Results 11/03/23 11/03/23 11/03/23 11:01 07:26 06:11 WBC 9.45 RBC 3.97 L Hgb 12.0 L Hct 36.9 L MCV 92.9 MCH 30.2 MCHC 32.5 RDW Std Deviation 71.2 H RDW Coeff of [place] 21.0 H Plt Count 157 MPV 12.6 H Immature Gran % (Auto) 0.7 Neut % (Auto) 82.9 Lymph % (Auto) 12.8 [place] % (Auto) 3.5 Eos % (Auto) 0.0 Baso % (Auto) 0.1 Neut # (Auto) 7.83 H Lymph # (Auto) 1.21 [place] # (Auto) 0.33 Eos # (Auto) 0.00 Baso # (Auto) 0.01 Immature Gran # (Auto) 0.07 Polychromasia 1+ Anisocytosis Present Macrocytosis Present Echinocytes 1+ PT 19.3 H INR 1.8 H Sodium 138 Potassium 4.6 Chloride 109 H Carbon Dioxide 21 Anion Gap 8 BUN 33 H Creatinine 1.20 Est Cr Clr Drug Dosing 49.0 Est GFR ( Amer) 64.9 Est GFR (Non-Af Amer) 56.0 BUN/Creatinine Ratio 27.5 H Glucose 160 H POC Glucose 131 H 138 H Calcium 8.6 11/02/23 11/02/23 20:23 16:20 POC Glucose 195 H 161 H Medications Administered Albuterol (Albut/Ipratrop 3mg/0.5mg Neb 3 Ml Vial) 3 ml NEB Q8R [facility]; Protocol Stop: 12/01/23 14:59 Last Admin: 11/03/23 07:25 Dose: 3 ml Documented By: Admin: 11/02/23 23:08 Dose: 3 ml Documented By: Admin: 11/02/23 15:15 Dose: 3 ml Documented By: Admin: 11/02/23 07:06 Dose: 3 ml Documented By: Admin: 11/01/23 23:39 Dose: 3 ml Documented By: Admin: 11/01/23 15:28 Dose: 3 ml Documented By: JENNIFER Atorvastatin Calcium (Atorvastatin 10 Mg Tab) [facility] Stop: 11/29/23 08:59 Last Admin: 11/03/23 08:26 Dose: 10 mg Documented By: Admin: 11/02/23 08:19 Dose: 10 mg Documented By: Admin: 11/01/23 08:40 Dose: 10 mg Documented By: Admin: 10/31/23 08:12 Dose: 10 mg Documented By: Admin: 10/30/23 08:23 Dose: 10 mg Documented By: CLAUDIA Azithromycin (Azithromycin 250 Mg Tab) 500 [facility] Stop: 11/09/23 08:59 Last Admin: 11/03/23 08:23 Dose: 500 mg Documented By: Admin: 11/02/23 08:22 Dose: 500 mg Documented By: ALONZO Fluticasone/Vilanterol (Fluticasone/Vilanterol 100/25mcg 14 Puffs/Inhaler) 1 puffs INH DAILY [facility] Stop: 11/29/23 08:59 Last Admin: 11/03/23 08:23 Dose: 1 puffs Documented By: Admin: 11/02/23 08:18 Dose: 1 puffs Documented By: Admin: 11/01/23 08:40 Dose: 1 puffs Documented By: Admin: 10/31/23 08:13 Dose: 1 puffs Documented By: Admin: 10/30/23 08:24 Dose: 1 puffs Documented By: CLAUDIA Guaifenesin (Guaifenesin 600 Mg Tabcr) 1,200 mg PO Q12 MIN Stop: 11/28/23 20:59 Last Admin: 11/03/23 08:25 Dose: 1,200 mg Documented By: Admin: 11/02/23 22:27 Dose: 1,200 mg Documented By: Admin: 11/02/23 08:20 Dose: 1,200 mg Documented By: Admin: 11/01/23 20:31 Dose: 1,200 mg Documented By: Admin: 11/01/23 08:40 Dose: 1,200 mg Documented By: Admin: 10/31/23 20:28 Dose: 1,200 mg Documented By: Admin: 10/31/23 08:12 Dose: 1,200 mg Documented By: Admin: 10/30/23 20:42 Dose: 1,200 mg Documented By: Admin: 10/30/23 08:23 Dose: 1,200 mg Documented By: Admin: 10/29/23 21:02 Dose: 1,200 mg Documented By: CHESTER Co-signed By: DIMAS Hydroxyzine HCl (Hydroxyzine Hcl 10 Mg Tab) 10 mg PO TID PRN PRN Reason: anxiety Stop: 11/28/23 16:26 Last Admin: 11/02/23 22:32 Dose: 10 mg Documented By: Admin: 11/01/23 21:57 Dose: 10 mg Documented By: Admin: 10/31/23 22:18 Dose: 10 mg Documented By: Admin: 10/31/23 08:12 Dose: 10 mg Documented By: Admin: 10/29/23 21:39 Dose: 10 mg Documented By: DIMAS Methylprednisolone 40 mg/ (Syringe) 0.64 mls @ 1.5 mls/min IV BID MIN Stop: 12/02/23 20:59 Last Admin: 11/03/23 08:27 Dose: 1.5 mls/min Documented By: Admin: 11/02/23 22:29 Dose: 1.5 mls/min Documented By: BRYN Insulin Aspart (Insulin Aspart Per Unit Charge) 0 units SC ACHS MIN Stop: 11/28/23 16:29 Last Admin: 11/03/23 08:21 Dose: 4 units Documented By: ALONZO Co-signed By: ERMIAS Admin: 11/02/23 21:41 Dose: 2 units Documented By: BRYN Co-signed By: POLINA Admin: 11/02/23 17:17 Dose: 6 units Documented By: ALONZO Co-signed By: EVERTON Admin: 11/02/23 12:06 Dose: 4 units Documented By: ALONZO Co-signed By: PETRA Admin: 11/02/23 08:16 Dose: Not Given Documented By: Admin: 11/01/23 20:30 Dose: 4 units Documented By: DIMAS Co-signed By: DES Admin: 11/01/23 16:53 Dose: 2 units Documented By: ASHA Co-signed By: ERMIAS Admin: 11/01/23 11:46 Dose: 4 units Documented By: ASHA Co-signed By: JILLIAN Admin: 11/01/23 08:33 Dose: Not Given Documented By: ASHA Insulin Glargine (Lantus Per Unit Charge) 10 units SC DAILY MIN Stop: 12/03/23 08:59 Last Admin: 11/03/23 08:22 Dose: 10 units Documented By: ALONZO Co-signed By: ERMIAS Melatonin (Melatonin 3 Mg Tab) 3 mg PO HS PRN PRN Reason: Sleep Stop: 11/28/23 16:26 Last Admin: 11/02/23 22:31 Dose: 3 mg Documented By: Admin: 10/31/23 22:18 Dose: 3 mg Documented By: Admin: 10/29/23 21:39 Dose: 3 mg Documented By: DIMAS Metoprolol Succinate (Metoprolol Succ 50mg Ext Rel Tab) 50 mg PO QAM MIN Stop: 11/29/23 08:59 Last Admin: 11/03/23 08:24 Dose: 50 mg Documented By: Admin: 11/02/23 08:21 Dose: 50 mg Documented By: Admin: 11/01/23 08:40 Dose: 50 mg Documented By: Admin: 10/31/23 08:12 Dose: 50 mg Documented By: Admin: 10/30/23 08:23 Dose: Not Given Documented By: CLAUDIA Montelukast Sodium (Montelukast Sodium 10 Mg Tablet) [facility] Stop: 11/29/23 08:59 Last Admin: 11/03/23 08:25 Dose: 10 mg Documented By: Admin: 11/02/23 08:19 Dose: 10 mg Documented By: Admin: 11/01/23 08:40 Dose: 10 mg Documented By: Admin: 10/31/23 08:12 Dose: 10 mg Documented By: Admin: 10/30/23 08:23 Dose: 10 mg Documented By: CLAUDIA Trazodone HCl (Trazodone Hcl 50 Mg Tab) 50 mg PO HS PRN PRN Reason: Insomnia Stop: 12/01/23 12:50 Last Admin: 11/02/23 22:31 Dose: 50 mg Documented By: Admin: 11/01/23 21:58 Dose: 50 mg Documented By: DIMAS Umeclidinium Bergoo (Umeclidinium [place] 62.5mcg/Blister 7 Puffs/Inhaler) 1 puffs INH [facility] Stop: 11/29/23 14:44 Last Admin: 11/03/23 08:22 Dose: 1 puffs Documented By: Admin: 11/02/23 08:18 Dose: 1 puffs Documented By: Admin: 11/01/23 08:39 Dose: 1 puffs Documented By: Admin: 10/31/23 08:13 Dose: 1 puffs Documented By: Admin: 10/30/23 15:31 Dose: 1 puffs Documented By: CLAUDIA Warfarin Sodium (Warfarin Sod 2.5 Mg Tab) 2.5 mg PO DAILY@1600 [facility] Stop: 11/29/23 15:59 Last Admin: 11/02/23 16:31 Dose: 2.5 mg Documented By: Admin: 10/31/23 17:06 Dose: 2.5 mg Documented By: Admin: 10/30/23 15:32 Dose: 2.5 mg Documented By: CLAUDIA
[2023-11-04 06:56] LABS: Hematocrit (blood only) 35.9 % (42.0-52.0); Hemoglobin 11.8 g/dl (14.0-18.0); Immature Granulocytes # (auto) 0.08 K/uL (0.01-0.20); Immature Granulocytes % (auto) 0.8 %; Lymphocytes # (auto) 1.48 K/uL (1.20-3.40); Lymphocytes % (auto) 13.9 %; Mean Corpuscular Hemoglobin 30.3 pg (25.0-34.0); Mean Corpuscular Hgb Conc 32.9 g/dL (32.0-36.0); Mean Corpuscular Volume 92.1 fL (80.0-100.0); Mean Platelet Volume 11.5 fL (9.4-12.4); Monocytes # (auto) 0.43 K/uL (0.11-0.59); Neutrophils # (auto) 8.65 K/uL (1.40-6.50); Neutrophils % (auto) 81.3 %; Platelet Count 171 K/uL (130-400); RDW Coefficient of Variation 21.3 % (11.5-14.5); White Blood Count 10.64 K/ul (4.8-10.8)
[2023-11-04 07:13] LABS: Anion Gap 5 (3-11); Blood Urea Nitrogen 36 mg/dl (6-23); Calcium 8.8 mg/dl (8.6-10.3); Carbon Dioxide 23 mmol/L (21-32); Chloride 109 mmol/L (98-107); Creatinine Clr Calc Pharmacy 47.4 ml/min; Est GFR (African American) 62.4 ml/min; Est GFR (Non-African American) 53.8 ml/min; Glucose 125 mg/dl (70-99(Fasting)); Sodium 137 mmol/L (136-145)
[2023-11-04 07:15] LABS: Anisocytosis Present; Ovalocytes 1+; Polychromasia 1+
--- NOTE | 2023-11-04 09:10 | Pharmacy Report ---
Pharmacy Glycemic Short Note 2 - Date of Service November 04, 2023 - Glycemic Short BSG Results (Last 24 hours): 11/03/23 11/03/23 11/03/23 11:01 15:57 20:11 Glucose POC Glucose 131 H 134 H 172 H 11/04/23 11/04/23 05:50 07:17 Glucose 125 H POC Glucose 124 H OUTPATIENT ANTIDIABETIC REGIMEN: * Farxiga 10 mg PO QAM * Metformin 500 mg PO BID HbA1c: 6.9% on 10/30/23 ASSESSMENT: 11/04/23: * Blood sugars remain reasonably well-controlled, [phone] mg/dL yesterday w/ fasting blood sugar of 124 mg/dL this morning * Novolog was tightened yesterday, will plan to continue today * Remains on methylprednisolone 40 mg IV BID 11/02/23: * Blood sugars well-controlled yesterday, ranging 86-144 mg/dL w/ fasting BSG of 79 mg/dL this morning * Received 18 units of insulin (8 units of which were basal) * Given fasting BSG in 70s today, will hold today's basal and trial bolus only * Steroids have now been increased from methylprednisolone 40 mg IV daily to 40 mg IV q8h * Will add back basal and slightly tighten Novolog parameters 10/30/23: * 83 y/o M admitted for acute on chronic respiratory failure, JOSEFINA. He was recently admitted for pneumonia. History of Type 2 diabetes. * Holding oral anti-diabetic home meds while admitted and utilizing basal + bolus insulin for glycemic control while admitted. * Basal insulin 12 units based on stress of 2 given last night. Reduced to basal 8 units once daily this morning since fasting BSG = 93 mg/dl. * Novolog parameters were initiated based on stress between 2 and 3. Pre-lunch BSG trended down to 85 mg/dl. Parameters loosened with lunch. PLAN FOR INPATIENT GLYCEMIC CONTROL: * Hold outpatient oral diabetes medications * Basal insulin * Lantus 10 units SC daily * Bolus insulin * NovoLog per scale ACHS or Q6hrs while NPO * Goal Range: Low 110 mg/dL - High 140 mg/dL * Correction Factor: 30 mg/dL/unit * Nutritional / Prandial insulin per carb ratio of 1 unit per 10 grams CHO consumed
--- NOTE | 2023-11-04 13:04 | Hospitalist Progress Note ---
Date of Service November 04, 2023 Assessment & Plan (1) Acute and chronic respiratory failure with hypoxia: (2) Acute diastolic CHF (congestive heart failure): (3) COPD (chronic obstructive pulmonary disease): (4) JOSEFINA (acute kidney injury): (5) Atrial fibrillation with RVR: (6) Hyperkalemia: (7) Type 2 diabetes mellitus: (8) Esophageal dysmotility: Plan Pt is an 83-year-old male with PMH of CAD, dyslipidemia, HTN, aspiration pneumonia, COPD, A-fib with RVR, CHF, esophageal dysmotility, and T2DM that presented to the hospital on 10/28 with respiratory distress, admitted for COPD exacerbation Today, pt improved so plan to continue IV steroids, obtain CXR to reassess lungs and airway, restart diuretic, and lift 1800mL fluid restriction. 1. Acute and chronic respiratory failure with hypoxia in the setting of COPD exac more than CHF exac - BioFire negative, continue supplemental O2 as needed - continue azithromycin for anti-inflamm effects - continue LABA/LAMA/ICS - IV methylpred 40 mg BID, continue IV today; plan to transition to long PO prednisone taper tomorrow 2. CHF (congestive heart failure) - last echo 10/29/23; 55-60%, no wall abnormalities - BNP elevated at 768 on admission, but respiratory issue seems most likely related to COPD exac - Restart home Lasix 20 mg p.o. daily 3. JOSEFINA (acute kidney injury), improving - Resolved - Avoid nephrotoxic agents - Continue to monitor with daily BMP 4. Atrial fibrillation with RVR - EKG on arrival revealed A-fib with RVR at 119 bpm - On warfarin; INR 2.1 on arrival - Continue warfarin, metoprolol - Trend PT/INR - Last INR 1.8; Will add additional 1.5mg warfarin today's dose 5. Type 2 diabetes mellitus - Last A1c at 7.3% on 04/13/2023 - Glucose 122 on admission - Pharmacy glycemic evaluation recommendations: Hold outpatient oral diabetes medications, Basal insulin -> Lantus 8 units SC daily, Bolus insulin -> NovoLog per scale ACHS or Q6hrs while NPO. Goal Range -> Low 110 mg/dL - High 140 mg/dL. Correction Factor: 35 mg/dL/unit. Nutritional / Prandial insulin per carb ratio of 1 unit per 12 grams CHO consumed. 6. Esophageal dysmotility Aspiration precautions AHA, T2DM, low-sodium diet (1800 mL fluid restriction) VTE PPx: On warfarin Admission and Anticipated Discharge Date Admission Date: October 29, 2023 Supervising Physician Co-Signing Physician Notes ATTESTATION I also saw the patient and confirmed dinh portions of the history and exam. I agree with the impression and plan in the student/resident documentation, and as summarized below. Upon our exam, the patient is seated at the window watching the construction outside. He states that he feels generally better. He does note when he is at home, he will check his pulse oximetry with activity and he will sometimes be in the low 80s. When he is working with physical therapy here this morning, he had similar drops. He is on 5 L via nasal cannula baseline. All of that being said, I think nearing his baseline in terms of his oxygen demand and SpO2 with activity. EXAM 103/68, 93, 19, 36.6, 98% on high flow nasal cannula Alert and oriented. Pleasant. No extra work of breathing at rest Lungs continue to sound a little better in terms of air movement; still yesterday, decrease sounds on left compared to right, with both improved compared to yesterday. Heart is irregularly irregular DATA Labs CBC is stable Sodium 137, BUN 36, creatinine 1.24 IMPRESSION & PLAN Acute on chronic respiratory failure with hypoxia, COPD CHF JOSEFINA, improving Atrial fibrillation, controlled ventricular response Continue Solu-Medrol twice daily; will switch to prednisone with prolonged taper starting tomorrow Suspect he will be steroid-dependent here after on a dose of 5-10 mg (he notes that he been on prednisone for extended periods previously, though this was not noted on his admission medication list) Continue home diuretics; left fluid restriction Continue supplemental oxygen; he came into the hospital using 5 L/min via nasal cannula at home Recheck INR tomorrow Additional per resident documentation Subjective Patient seen and evaluated at bedside this morning. No acute events overnight. Pt feels he is largely back to baseline. Still with significant SOB on exertion, though this is normal for him. Otherwise without acute complaints. Review of Systems Review of Systems: reviewed, per HPI Physical Exam Physical Exam: Constitutional: chronically ill appearing, no acute distress HEENT: NCAT, no conjunctival injection CV: no murmur appreciated, extremities well-perfused, no LE edema Resp: moving greater volume of air today L>R, no appreciated wheeze MSK: no gross deformities appreciated Neuro: alert, no focal neurologic deficit appreciated Results & Data Results & Data Vital Signs (Past 12 Hours) Vital Signs Temp Pulse Pulse Resp BP Pulse Ox O2 Del Method 11/04/23 11:15 36.4 C L 101 H 19 128/73 93 High Flow Nasal Cannula 11/04/23 09:19 89 92 Nasal Cannula 11/04/23 09:00 Nasal Cannula 11/04/23 08:00 81 11/04/23 07:17 36.4 C L 84 18 127/81 96 High Flow Nasal Cannula 11/04/23 03:00 36.6 C 82 21 106/68 96 Nasal Cannula O2 Flow Rate 11/04/23 11:15 11/04/23 09:19 5 11/04/23 09:00 5 11/04/23 08:00 11/04/23 07:17 11/04/23 03:00 6 Resident Activity Tracking Resident Involvement: Resident Care Provided Care Provided: Adult Hospital Medicine
[2023-11-04] MEDS: WARFARIN SOD 4 MG TAB PO SCH (17:03)
[2023-11-05 06:39] LABS: Basophils # (auto) 0.01 K/uL (0.00-0.20); Basophils % (auto) 0.1 %; Eosinophils # (auto) 0.01 K/uL (0.00-0.50); Eosinophils % (auto) 0.1 %; Hematocrit (blood only) 36.7 % (42.0-52.0); Hemoglobin 11.8 g/dl (14.0-18.0); Immature Granulocytes # (auto) 0.08 K/uL (0.01-0.20); Immature Granulocytes % (auto) 0.7 %; Lymphocytes % (auto) 12.5 %; Mean Corpuscular Hemoglobin 30.1 pg (25.0-34.0); Mean Corpuscular Hgb Conc 32.2 g/dL (32.0-36.0); Mean Corpuscular Volume 93.6 fL (80.0-100.0); Mean Platelet Volume 11.6 fL (9.4-12.4); Monocytes # (auto) 0.39 K/uL (0.11-0.59); Monocytes % (auto) 3.5 %; Neutrophils % (auto) 83.1 %; Platelet Count 173 K/uL (130-400); RDW Coefficient of Variation 21.2 % (11.5-14.5); RDW Standard Deviation 72.4 fL (36.4-46.3); Red Blood Count 3.92 M/uL (4.70-6.10); White Blood Count 11.19 K/ul (4.8-10.8)
[2023-11-05 06:58] LABS: Anisocytosis Present; BUN Creatinine Ratio 32.7 (10-20); Calcium 8.8 mg/dl (8.6-10.3); Est GFR (African American) 79.9 ml/min; Est GFR (Non-African American) 68.9 ml/min; Polychromasia 1+; Potassium 4.7 mmol/L (3.5-5.1)
[2023-11-05 07:04] LABS: INR 1.8 (0.9-1.1); Prothrombin Time 18.8 Seconds (9.0-12.0)
[2023-11-05] MEDS: LANTUS PER UNIT CHARGE SC SCH (08:16)
[2023-11-05] MEDS: FUROSEMIDE 20 MG TAB PO SCH (08:20)
[2023-11-05] MEDS: predniSONE 20 MG TAB PO SCH (09:12)
--- NOTE | 2023-11-05 14:14 | Pharmacy Report ---
Pharmacy Glycemic Short Note 2 - Date of Service November 05, 2023 - Glycemic Short BSG Results (Last 24 hours): 11/04/23 11/04/23 11/05/23 16:12 20:09 05:50 Glucose 117 H POC Glucose 94 167 H 11/05/23 11/05/23 07:38 11:12 Glucose POC Glucose 124 H 238 H OUTPATIENT ANTIDIABETIC REGIMEN: * Farxiga 10 mg PO QAM * Metformin 500 mg PO BID HbA1c: 6.9% on 10/30/23 ASSESSMENT: 11/05/23: * Dru received 30 units of insulin yesterday with good glycemic control (10 units Lantus + 20 units Novolog) * Methylprednisolone was transitioned to prednisone 60 mg PO daily starting this morning (equivalent to ~40% decrease in daily steroid dose). * Fasting BSG of 124 mg/dL is near goal. Will empirically decrease basal insulin to account for changes in steroids. * BSG of 238 mg/dL at lunch. Will tighten carb coverage. If post prandial elevations persist, may consider changing Lantus to NPH to better cover prednisone induced hyperglycemia. 11/04/23: * Blood sugars remain reasonably well-controlled, [phone] mg/dL yesterday w/ fasting blood sugar of 124 mg/dL this morning * Novolog was tightened yesterday, will plan to continue today * Remains on methylprednisolone 40 mg IV BID 11/02/23: * Blood sugars well-controlled yesterday, ranging 86-144 mg/dL w/ fasting BSG of 79 mg/dL this morning * Received 18 units of insulin (8 units of which were basal) * Given fasting BSG in 70s today, will hold today's basal and trial bolus only * Steroids have now been increased from methylprednisolone 40 mg IV daily to 40 mg IV q8h * Will add back basal and slightly tighten Novolog parameters 10/30/23: * 83 y/o M admitted for acute on chronic respiratory failure, JOSEFINA. He was recently admitted for pneumonia. History of Type 2 diabetes. * Holding oral anti-diabetic home meds while admitted and utilizing basal + bolus insulin for glycemic control while admitted. * Basal insulin 12 units based on stress of 2 given last night. Reduced to basal 8 units once daily this morning since fasting BSG = 93 mg/dl. * Novolog parameters were initiated based on stress between 2 and 3. Pre-lunch BSG trended down to 85 mg/dl. Parameters loosened with lunch. PLAN FOR INPATIENT GLYCEMIC CONTROL: * Hold outpatient oral diabetes medications * Basal insulin * Lantus 7 units SC daily * Bolus insulin * NovoLog per scale ACHS or Q6hrs while NPO * Goal Range: Low 110 mg/dL - High 140 mg/dL * Correction Factor: 30 mg/dL/unit * Nutritional / Prandial insulin per carb ratio of 1 unit per 8 grams CHO consumed
[2023-11-05] MEDS: WARFARIN SOD 5 MG TAB PO SCH (15:42)
--- NOTE | 2023-11-05 16:04 | Hospitalist Progress Note ---
Date of Service November 05, 2023 Assessment & Plan (1) Acute and chronic respiratory failure with hypoxia: (2) Acute diastolic CHF (congestive heart failure): (3) COPD (chronic obstructive pulmonary disease): (4) JOSEFINA (acute kidney injury): (5) Atrial fibrillation with RVR: (6) Hyperkalemia: (7) Type 2 diabetes mellitus: (8) Esophageal dysmotility: Plan Pt is an 83-year-old male with PMH of CAD, dyslipidemia, HTN, aspiration pneumonia, COPD, A-fib with RVR, CHF, esophageal dysmotility, and T2DM that presented to the hospital on 10/28 with respiratory distress, admitted for COPD exacerbation 1. Acute and chronic respiratory failure with hypoxia in the setting of COPD exac more than CHF exac - BioFire negative, continue supplemental O2 as needed - continue azithromycin for anti-inflamm effects - continue LABA/LAMA/ICS - Prednisone 60mg daily with plan for long taper likely to 10mg chronically on dc 2. CHF (congestive heart failure) - last echo 10/29/23; 55-60%, no wall abnormalities - BNP elevated at 768 on admission, but respiratory issue seems most likely related to COPD exac - Restart home Lasix 20 mg p.o. daily 3. JOSEFINA (acute kidney injury), improving - Resolved - Avoid nephrotoxic agents - Continue to monitor with daily BMP 4. Atrial fibrillation with RVR - EKG on arrival revealed A-fib with RVR at 119 bpm - On warfarin; INR 2.1 on arrival - Continue warfarin, metoprolol - Trend PT/INR - Last INR 1.8; Will add additional 1.5mg warfarin today's dose 5. Type 2 diabetes mellitus - Last A1c at 7.3% on 04/13/2023 - Glucose 122 on admission - Pharmacy glycemic evaluation recommendations: Hold outpatient oral diabetes medications, Basal insulin -> Lantus 8 units SC daily, Bolus insulin -> NovoLog per scale ACHS or Q6hrs while NPO. Goal Range -> Low 110 mg/dL - High 140 mg/dL. Correction Factor: 35 mg/dL/unit. Nutritional / Prandial insulin per carb ratio of 1 unit per 12 grams CHO consumed. 6. Esophageal dysmotility Aspiration precautions AHA, T2DM, low-sodium diet (1800 mL fluid restriction) VTE PPx: On warfarin Admission and Anticipated Discharge Date Admission Date: October 29, 2023 Supervising Physician Co-Signing Physician Notes ATTESTATION I also saw the patient and confirmed dinh portions of the history and exam. I agree with the impression and plan in the resident documentation, and as summarized below. Seems to be back at his baseline in terms of oxygenation and activity. He has been accepted at [facility] and they will have a bed for him tomorrow. EXAM 124/74, 95, 24, 36.5, 92% on nasal cannula 5 L/min; this is his home oxygen requirement Alert and oriented. Pleasant. No extra work of breathing at rest Lungs with improved air movement compared during the week; no focal findings, no wheezing appreciated. Heart is irregularly irregular DATA Labs WBC 11.19; mild elevation likely secondary to steroids. Sodium 139, potassium 4.7, BUN 33, creatinine 1.01 IMPRESSION & PLAN Acute on chronic respiratory failure with hypoxia, COPD CHF JOSEFINA, improving Atrial fibrillation, controlled ventricular response Continue prednisone, with long taper Suspect he will be steroid-dependent here after on a dose of 5-10 mg (he notes that he been on prednisone for extended periods previously, though this was not noted on his admission medication list) Continue home diuretics; lift fluid restriction Continue supplemental oxygen; he came into the hospital using 5 L/min via nasal cannula at home Recheck INR tomorrow Plan is for discharge to [facility] tomorrow Additional per resident documentation Subjective Patient seen and evaluated at bedside this morning. No acute events overnight. Pt continues to feel he is largely back to baseline. Still with significant SOB on exertion, though this is normal for him. Otherwise without acute complaints. Review of Systems Review of Systems: reviewed, per HPI Physical Exam Physical Exam: Constitutional: chronically ill appearing, no acute distress HEENT: NCAT, no conjunctival injection CV: no murmur appreciated, extremities well-perfused, no LE edema Resp: moving greater volume of air today L>R, no appreciated wheeze MSK: no gross deformities appreciated Neuro: alert, no focal neurologic deficit appreciated Results & Data Results & Data Vital Signs (Past 12 Hours) Vital Signs Temp Pulse Pulse Resp BP Pulse Ox O2 Del Method 11/05/23 15:24 92 H 15 95 Nasal Cannula 11/05/23 11:59 36.5 C 101 H 18 125/76 90 Nasal Cannula 11/05/23 08:00 95 H 18 120/73 100 High Flow Nasal Cannula 11/05/23 07:54 88 11/05/23 07:45 Nasal Cannula 11/05/23 07:21 81 15 95 Nasal Cannula O2 Flow Rate 11/05/23 15:24 5 11/05/23 11:59 4 11/05/23 08:00 11/05/23 07:54 11/05/23 07:45 5 11/05/23 07:21 4 Resident Activity Tracking Resident Involvement: Resident Care Provided Care Provided: Adult Hospital Medicine
[2023-11-06 05:55] LABS: Basophils # (auto) 0.01 K/uL (0.00-0.20); Basophils % (auto) 0.1 %; Eosinophils # (auto) 0.08 K/uL (0.00-0.50); Eosinophils % (auto) 0.7 %; Hematocrit (blood only) 36.7 % (42.0-52.0); Immature Granulocytes # (auto) 0.09 K/uL (0.01-0.20); Immature Granulocytes % (auto) 0.8 %; Lymphocytes # (auto) 2.35 K/uL (1.20-3.40); Lymphocytes % (auto) 21.2 %; Mean Corpuscular Hemoglobin 30.2 pg (25.0-34.0); Mean Corpuscular Hgb Conc 32.7 g/dL (32.0-36.0); Mean Corpuscular Volume 92.4 fL (80.0-100.0); Mean Platelet Volume 11.3 fL (9.4-12.4); Monocytes # (auto) 0.84 K/uL (0.11-0.59); Monocytes % (auto) 7.6 %; Neutrophils # (auto) 7.72 K/uL (1.40-6.50); Neutrophils % (auto) 69.6 %; Nucleated RBC # (auto) 0.02 K/uL (0.00-0.12); Nucleated RBC % (auto) 0.2 %; Platelet Count 168 K/uL (130-400); RDW Coefficient of Variation 21.2 % (11.5-14.5); RDW Standard Deviation 71.8 fL (36.4-46.3); Red Blood Count 3.97 M/uL (4.70-6.10); White Blood Count 11.09 K/ul (4.8-10.8)
[2023-11-06 06:09] LABS: BUN Creatinine Ratio 27.5 (10-20); Calcium 8.5 mg/dl (8.6-10.3); Est GFR (African American) 64.9 ml/min; Potassium 4.3 mmol/L (3.5-5.1)
[2023-11-06 06:17] LABS: INR 2.2 (0.9-1.1); Prothrombin Time 22.9 Seconds (9.0-12.0)
[2023-11-06 06:42] LABS: Anisocytosis Present
[2023-11-06] MEDS: LANTUS PER UNIT CHARGE SC SCH (09:19)
--- NOTE | 2023-11-06 09:20 | Discharge Summary ---
Date of Service November 06, 2023 Admission HPI Per Admitting Provider Dru is an 83-year-old male with PMH of CAD, dyslipidemia, HTN, aspiration pneumonia, COPD, A-fib with RVR, CHF, esophageal dysmotility, and T2DM. He presented for worsening pneumonia, SOB, and hypoxia x 1 week. Recently discharged from rehab 1 week ago for pneumonia. Patient reports feeling okay after discharge for 2 to 3 days, then developed worsening DEUTSCH and chest palpitations over the course of the week. In the morning of 10/28, he noted that he was hypoxic at 74% SpO2 on 5L at home using a home pulse ox. SOB is worse when lying flat. Patient saw Anibal pulmonology at [facility] on Friday 10/27 and it was recommended he titrate up on his oxygen. Patient ports that he took all of his regular morning medications; the medications are managed by his daughter who lives nearby (she is a nurse). Patient is a former tobacco cigarette smoker but quit in 1978; he does still chew snuff; no alcohol use. Vitals at time of admission: tachycardic at 109 bpm, tachypneic at 32 rpm, and SpO2 is 96% on BiPAP (FiO2 ratio 40). ED course: Started on BiPAP Magnesium sulfate 1 g IV DuoNeb 12 mL IV Solu-Medrol 125 mg IV Lasix 40 mg IV ROS: Patient endorses dizziness/lightheadedness, minimal productive cough (clear sputum), chest palpitations, DEUTSCH, and swelling in legs. Patient denies fever, chills, nightsweats, ARGUELLO, chest pain, left arm/shoulder/jaw pain, abdominal pain, N/V/D, urinary s/s, numbness/tingling/pain/erythema in legs. Admission Exam Per Admitting Provider General: Moderate respiratory distress on BiPAP; non-toxic appearing; well- nourished; cooperative; SpO2 99% on BiPAP HEENT: normocephalic, atraumatic; no scleral icterus; PERRLA w/ EOMs intact; moist mucus membrane; vision and hearing grossly intact Neck: supple; negative for JVD; no lymphadenopathy; trachea midline Skin: warm, dry without signs of tenting; no cyanosis; no rashes, bruising, lesions, or erythema noted CV: chest wall NTP; irregular regular rhythm at 110 bpm; S1/S2 normal; no murmurs/rubs/gallops; pulses intact and symmetric at radial, DP, and PT Lungs: Moderate respiratory distress; symmetrical chest wall expansion; diminished breath sounds across all lung dyson w/o adventitious sounds; no wheezing ABD: Soft, NTP; BS present; no rebound/guarding; no ascites; no distention; negative CVA tenderness MSK: no tics or fasciculations; nonpitting edema in the LEs B/L, nonerythematous Neuro: A&Ox3; normal mood and affect; fluent speech; no focal deficits; sensation grossly intact in the LEs b/l Principal Diagnosis COPD exacerbation, CHF exacerbation, JOSEFINA Discharge Exam Constitutional: chronically ill appearing, no acute distress HEENT: NCAT, no conjunctival injection CV: no murmur appreciated, extremities well-perfused, no LE edema Resp: moving greater volume of air today L>R, no appreciated wheeze MSK: no gross deformities appreciated Neuro: alert, no focal neurologic deficit appreciated Discharge Data Allergies Allergy/AdvReac Type Severity Reaction Status Date / Time pollen extracts Allergy Mild Sneezing Verified 04/05/23 19:59 Consultations 10/29/23 13:29 ED Decision to Admit Stat Hospital Course (1) Acute and chronic respiratory failure with hypoxia: (2) Acute diastolic CHF (congestive heart failure): (3) COPD (chronic obstructive pulmonary disease): (4) JOSEFINA (acute kidney injury): (5) Atrial fibrillation with RVR: (6) Hyperkalemia: (7) Type 2 diabetes mellitus: (8) Esophageal dysmotility: Plan Pt is an 83-year-old male with PMH of CAD, dyslipidemia, HTN, aspiration pneumonia, COPD, A-fib with RVR, CHF, esophageal dysmotility, and T2DM that presented to the hospital on 10/28 with respiratory distress, admitted for COPD exacerbation 1. Acute and chronic respiratory failure with hypoxia in the setting of COPD exac more than CHF exac - BioFire negative, continue supplemental O2 as needed - continue azithromycin for anti-inflamm effects - continue LABA/LAMA/ICS - Prednisone 60mg daily with plan for long taper to 10mg chronically on dc 2. CHF (congestive heart failure) - last echo 10/29/23; 55-60%, no wall abnormalities - BNP elevated at 768 on admission, but respiratory issue seems most likely related to COPD exac - Restart home Lasix 20 mg p.o. daily 3. JOSEFINA (acute kidney injury), improving - Resolved - Avoid nephrotoxic agents 4. Atrial fibrillation with RVR - EKG on arrival revealed A-fib with RVR at 119 bpm - On warfarin; INR 2.1 on arrival - Continue warfarin, metoprolol - Trend PT/INR - INR @ d/c 2.2 5. Type 2 diabetes mellitus - Last A1c at 7.3% on 04/13/2023 - Glucose 122 on admission - Pharmacy glycemic evaluation recommendations: Hold outpatient oral diabetes medications, Basal insulin -> Lantus 8 units SC daily, Bolus insulin -> NovoLog per scale ACHS or Q6hrs while NPO. Goal Range -> Low 110 mg/dL - High 140 mg/dL. Correction Factor: 35 mg/dL/unit. Nutritional / Prandial insulin per carb ratio of 1 unit per 12 grams CHO consumed. 6. Esophageal dysmotility Aspiration precautions AHA, T2DM, low-sodium diet (1800 mL fluid restriction) VTE PPx: On warfarin Total Time Total Time Spent Total Time Spent (In Minutes): 34 Discharge Plan Discharge Items Patient Disposition: Transfer [facility] Fac Reason For Visit: SOB/DYSPNEA Discharge Diagnosis: COPD Exacerbation Activity: Resume your previous activity Non-emergency contact: Primary Care Provider Call non-emergency contact if: you have any medication questions, your symptoms worsen, you have a fever and your temperature is above 101 Follow-up/Referrals: Arun Alexandre [Primary Care Provider] - Diet: Carb Consistent or DM2, Heart Healthy and Low Sodium (2gm) Addtl Attending Provider Instructions: You were admitted to the hospital for shortness of breath. You were treated with steroids and antibiotics to help you to breath better. You were also found to have an exacerbation of your congestive heart failure. You were given diuretics to help your kidneys to eliminate excess water in your system. Throughout your stay your kidney function improved. You will be discharged with a long prednisone taper. You will take 6 pills tomorrow, then 5 pills for 3 days, 4 pills for 3 days, 3 pills for 3 days, 2 pills for 3 days and 1 pill thereafter. A discharge summary will be sent to your primary care physician to ensure continuity of care. Please bring this discharge summary with you to your next office appointment so that your provider can review it at that time. Follow-up appointments: Make a follow-up appointment with your PCP within the next week. It is very important that you follow up with them shortly after discharge from the hospital. Keep all your follow-up appointments as already scheduled. If you cannot make an appointment, notify your provider. Medications: Your medication list has been reviewed and reconciled upon discharge to ensure accuracy and continuity of care. An updated list of all your medications is included with your hospital discharge paperwork. Please review this list closely, and make note of any changes. We sent a new medication called prednisone to your pharmacy. Take prednisone 10mg as detailed above. After finishing the taper continue to take 10mg daily indefinitely. Take your medications as instructed; do not skip a dose of your medicines. Make sure all of your doctors know every medicine you are taking (including dctz-dmz-upkxhme medicines, vitamins, and supplements). Call your primary care provider before taking any new medicines (including bari-ufg-qgcqnsb medicines, vitamins, and supplements), because some of these may interact with your current medications, or may make your symptoms worse. Tell your primary care provider if you cannot afford your medications. CONTACT YOUR PRIMARY CARE PROVIDER if you experience any of the following: Increased shortness of breath Increased swelling of your lower extremities Difficulty following your treatment plan, or difficulty taking medications CALL 911 OR GO TO THE EMERGENCY DEPARTMENT if you experience any of the following: Sudden, severe abdominal pain or nausea/vomiting Severe chest pain, or chest pain that radiates (moves) to your jaw or arm Sudden, severe shortness of breath or difficulty breathing Thank you for allowing us to participate in your care. Pending Studies at Discharge: No Stand-Alone Forms: My [facility] Skilled Items Patient informed of condition?: Yes DNR: Yes Discharge Level of Care: Skilled Communicable Disease: No Discharge Prognosis: Stable Lines: None Urinary Catheter: No Medications and DC Order Prescriptions: New prednisone 10 mg tablet 10 mg PO DIRECTED Qty: 60 0RF Rx Instructions: Take 6 pills for one day, 5 pills per day for 3 days, 4 pills per day for 3 days, 3 pills for 3 days, 2 pills for 3 days, then 1 pill per day thereafter Continued fluticasone propion-salmeterol [Advair Diskus] 250-50 mcg/dose blister with device 1 inh inhalation BID Rx Instructions: Rinse mouth with water after use. atorvastatin 10 mg tablet 10 mg PO QAM montelukast 10 mg Tablet 10 mg PO QAM [id number]-qcowlozr-fsgwrp Tablet 1 tab PO DAILY PreserVision AREDS-2 250-90-40-1 mg Capsule 2 tab PO QAM (DME) Oxygen Home [id number] Liters Per Minute See Rx Instructions .ROUTE .MEDSUPPLY Qty: 1 0RF Rx Instructions: 3 liters continuously. furosemide 20 mg tablet 20 mg PO QAM Qty: 30 5RF metoprolol succinate 50 mg tablet extended release 24 hr 50 mg PO QAM Qty: 30 5RF metformin 500 mg tablet 500 mg PO BID trazodone 50 mg tablet 50 mg PO HS PRN (Reason: Sleep) warfarin 2.5 mg Tablet 2.5 mg PO UD Rx Instructions: ,Thu,,Sat & Sun spironolactone 25 mg tablet 12.5 mg PO QAM albuterol sulfate 90 mcg/actuation HFA aerosol inhaler 2 puff INHALATION Q6H PRN (Reason: sob/wheezing) hydroxyzine HCl 10 mg Tablet 10 mg PO TID PRN (Reason: anxiety ) dapagliflozin propanediol [Farxiga] 10 mg Tablet 10 mg PO QAM melatonin 3 mg Tablet 3 mg PO HS PRN (Reason: Sleep) cholecalciferol (vitamin D3) [Vitamin D3] 50 mcg (2,000 unit) Capsule 50 mcg PO DAILY Spiriva Respimat 2.5 mcg/actuation mist 1 puff INHALATION BID guaifenesin [Mucinex] 600 mg Tablet Extended Release 12hr 1,200 mg PO Q12H PRN (Reason: Other) Discharge Orders: Discharge Order (Routine); Ordered 11/06/23 Ordered By: Darnell Joshi/Other Patient Handouts: Managing Type 2 Diabetes Admission Data Admit Date/Time: 10/29/23 14:46 Attending Provider: Bernarda Brenner Admit Provider: Antonio Butler Primary Care Provider: Arun Alexandre Other Providers: Antonio Butler; [facility]; [facility] Other Interventions: Discharge Summary Assessment (RN) Last Done: 11/06/23 10:58 Supervising Physician Co-Signing Physician Notes I personally examined the patient and verified dinh points of history and exam, discussed case, and agree with decision making and plan documented by Dr. Lamb. Patient reports feeling back to baseline in terms of respiratory st atus, remains on 5 L O2, prednisone taper prescribed. Appears euvolemic on exam today, continue home dose of diuretics, monitor weights. Patient will be transported to [facility] by his son today. He was recommended to follow-up with PCP upon discharge. Resident Activity Tracking Resident Involvement: Resident Care Provided Care Provided: Adult Hospital Medicine
[2023-11-06] MEDS: CARBOHYDRATES FOR HYPOGLYCEMIA PO PRN (11:28)
== END 2023-11-06 12:20 | DRG 189 ==
LOC: ED 11:15 → 2S 14:46 → SUATTDRO 14:46 → 2S 16:03

== ENCOUNTER 2023-11-18 13:54 | Inpatient (IN) ==
[2023-11-18] MEDS: ALBUT/IPRATROP 3MG/0.5MG NEB 3 ML VIAL INH STA (14:08)
--- NOTE | 2023-11-18 14:08 | Emergency Department Note ---
Impression & Plan Hypoxia ADMIT ED Provider Note HPI: History obtained from patient, bedside RN via EMS report. The patient is a 84-year-old gentleman with history of COPD, on long-term nasal cannula oxygen at baseline, presents the emergency department with a chief complaint of shortness of breath. Patient denies any chest pain. States that his shortness of breath acutely worsened today. Per EMS report patient was 65% on his supplemental oxygen on their arrival and therefore he was placed on CPAP for transport with good improvement in his oxygenation. On my assessment here in the ED the patient is saturating at 96% on BiPAP at 10/5 and 50% FiO2. Patient states his breathing feels improved. Patient received a breathing treatment and IV Solu-Medrol via EMS prior to arrival. ROS: - Per HPI Differential Diagnosis: COPD exacerbation, acute CHF exacerbation with hypoxia, pulmonary embolism, acute coronary syndrome, pneumonia, pneumothorax, pleural effusion, amongst other potential pathologies. *Outpatient medications and allergy history reviewed. PE: General: Alert HEENT: Normocephalic, trachea midline Eyes: Extraocular eye movement is intact, no scleral erythema Pulmonary: Diminished breath sounds bilaterally without wheezing or crackles Cardio: Tachycardic rate with irregular rhythm GI: Abdomen is soft to palpation : No suprapubic tenderness MSK: No evidence of trauma or malformation of the extremities, no edema Skin: No evidence of rash Neuro: Alert, no focal deficits Psychiatric: Cooperative INDEPENDENT INTERPRETATIONS: potline monitor: (As interpreted by myself): - An order was placed for continuous cardiac monitoring - Patient was noted to be in atrial fibrillation with a rate of 112 EKG: (As interpreted by myself): Rate: 115 Rhythm: Atrial fibrillation with rapid response Intervals: Within normal limits ST changes: No ST elevation Time: 1510 Chest x-ray: (As interpreted by myself): Emphysema without focal infiltrate Interventions provided in ED: -IV Lasix, DuoNeb breathing treatment, BiPAP Medical Decision Making: IV was established and lab work obtained, patient was maintained on BiPAP shortly after arrival with good improvement in his work of breathing and oxygen saturations. Lab work shows a leukocytosis of 15.65, hemoglobin is stable at 13.4, platelet count is normal, INR is therapeutic at 3.2, venous blood gas shows alkalotic pH at 7.45 with pCO2 of 34, CMP does not show any critical findings, glucose is elevated at 262, bicarb level is within normal limits at 23. Troponin is slightly elevated at two 6.5. BNP is elevated at 1009. Patient denies any chest pain, low suspicion for ACS, EKG per my interpretation does not show any acute ischemic changes. COVID-19 testing was obtained and is positive. On my reassessment the patient remains comfortable appearing on BiPAP, suspect he likely had COPD exacerbation causing his hypoxia. Also possibly an element of CHF although his chest x-ray does not show fluid overload and he does not clinically appear to be in CHF, his BNP is elevated above his baseline. Patient was also given a dose of Lasix. I discussed the patient's presentation with the on-call hospitalist, Dr. Shabazz, who is in agreement to accept the patient for further care. Patient was in agreement to this plan as was his son at the bedside and the patient was placed for admission in stable condition. Consultants/Discussions held with other healthcare providers: -Hospitalist, Dr. Shabazz Disposition discussion held by myself with: -Patient and son at bedside * CRITICAL CARE TIME: ( 38 ) minutes -Stabilization of patient with hypoxia in the 60s despite nasal cannula oxygen, requiring positive pressure ventilation to be initiated in the field. Time spent at the bedside. Discussion with patient and family. Interpretation of diagnostic studies. Discussion with other medical providers and arrangement of admission. Diagnosis: 1. Hypoxia, acute 2. COPD exacerbation, acute 3. COVID-19 infection, acute 4. Hyperglycemia without acidosis, acute 5. Leukocytosis in the setting of outpatient steroid use, acute Disposition: Admission Nils Baxter DO Emergency Medicine Past Med/Surg History Medical History (Updated 11/18/23 @ 20:28 by Nils Baxter DO) DVT prophylaxis Lower extremity edema Food impaction of esophagus COPD (chronic obstructive pulmonary disease) CAD (coronary artery disease) Dyslipidemia HTN (hypertension) Emphysema of lung Family History Other Family history non-contributory Social History Smoking Status: Former smoker Tobacco Type: Cigarettes Second Hand Exposure: No; Do You Dip or Chew Tobacco: Yes; Hx Alcohol Use: No Hx Substance Use: No Preferred Language: Macedonian Communication Ability: Effective 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: No Beliefs That Will Affect Care: Anabaptism marital status: Current Living Situation: Spouse Current Living Situation Comment: lives at home with , son checks in regularly current occupational status: retired Feels Safe at Home: Yes Assistive Devices: Cane, Glasses, Oxygen - Continuous, Walker and Wheelchair Allergies Allergies Allergy/AdvReac Type Severity Reaction Status Date / Time pollen extracts Allergy Mild Sneezing Verified 11/18/23 15:33 Home Meds Home Medications Medication Instructions Recorded Confirmed atorvastatin 10 mg tablet 10 mg PO QAM 04/07/19 11/18/23 fluticasone 250 mcg-salmeterol 50 1 inh inhalation BID 04/07/19 11/18/23 mcg/dose blistr powdr for inhalation (Advair Diskus) montelukast 10 mg tablet 10 mg PO QAM 05/10/20 11/18/23 bvslilonymto-buyhrsjj-qujpbg tablet 1 tab PO DAILY 04/05/23 11/18/23 vit C 250 mg-vit E 90 mg-zinc 40 2 tab PO QAM 04/05/23 11/18/23 mg-copper 1 dl-yxyzla-exiqrg capsule (PreserVision AREDS-2) albuterol sulfate 90 mcg/actuation 2 puff inhalation Q6H PRN 10/29/23 11/18/23 aerosol inhaler sob/wheezing cholecalciferol (vitamin D3) 50 50 mcg PO DAILY 10/29/23 11/18/23 mcg (2,000 unit) capsule (Vitamin D3) dapagliflozin propanediol 10 mg 10 mg PO QAM 10/29/23 11/18/23 tablet (Farxiga) guaifenesin 600 mg tablet, 1,200 mg PO Q12H PRN Mucus 10/29/23 11/18/23 extended release 12 hr (Mucinex) hydroxyzine HCl 10 mg tablet 10 mg PO TID PRN anxiety 10/29/23 11/18/23 melatonin 3 mg tablet 3 mg PO HS PRN Sleep 10/29/23 11/18/23 metformin 500 mg tablet 500 mg PO BID 10/29/23 11/18/23 spironolactone 25 mg tablet 12.5 mg PO QAM 10/29/23 11/18/23 tiotropium bromide 2.5 1 puff inhalation BID 10/29/23 11/18/23 mcg/actuation mist for inhalation (Spiriva Respimat) trazodone 50 mg tablet 50 mg PO HS PRN Sleep 10/29/23 11/18/23 prednisone 5 mg tablet 5 mg PO QAM 11/18/23 11/18/23 warfarin 5 mg tablet See Rx Instructions .Route .COMPLEX 11/18/23 11/18/23 Previous Rx's Medication Instructions Recorded Oxygen Home E0424 #1 ea 04/14/23 furosemide 20 mg tablet 20 mg PO QAM #30 tabs 04/14/23 metoprolol succinate 50 mg 50 mg PO QAM #30 tabs 04/14/23 tablet,extended release 24 hr Results & Data (ED) Vital Signs Vital Signs - 24 hr 11/18/23 13:56 11/18/23 14:02 11/18/23 14:02 Temperature 37.2 C Temperature Source Axillary Pulse Rate 126 H 120 H Pulse Rate [Apical] Respiratory Rate 25 H 32 H Respiratory Effort / Characteristics Spontaneous Accessory Muscle Use Short of Breath Labored Short of Breath Respiratory Depth Deep Respiratory Pattern Tachypnea Tachypnea Blood Pressure 100/57 L Blood Pressure [Left Arm] Blood Pressure Mean 71 Blood Pressure Mean [Left Arm] Pulse Oximetry 96 92 Oxygen Delivery Method CPAP CPAP Fraction of Inspired Oxygen 40 Sepsis Recent Fever Within 48 Hours No Sepsis New/Unexplained Change in Mental Status N/A Sepsis Action Taken by Nursing Physician Notified 11/18/23 14:02 11/18/23 14:02 11/18/23 14:08 Temperature Temperature Source Pulse Rate Pulse Rate [Apical] 127 H 126 H Respiratory Rate 28 H 25 H Respiratory Effort / Characteristics Short of Breath Spontaneous Accessory Muscle Use Respiratory Depth Respiratory Pattern Blood Pressure Blood Pressure [Left Arm] 100/57 L Blood Pressure Mean Blood Pressure Mean [Left Arm] 71 Pulse Oximetry 94 96 Oxygen Delivery Method CPAP CPAP Nebulizer BiPAP Fraction of Inspired Oxygen 40 Sepsis Recent Fever Within 48 Hours Sepsis New/Unexplained Change in Mental Status Sepsis Action Taken by Nursing Laboratory Data 11/18/23 14:00 11/18/23 14:00 Lab Results 11/18/23 Range/Units 14:00 WBC 15.65 H (4.8-10.8) K/ul RBC 4.40 L (4.70-6.10) M/uL Hgb 13.4 L (14.0-18.0) g/dl Hct 41.2 L (42.0-52.0) % MCV 93.6 (80.0-100.0) fL MCH 30.5 (25.0-34.0) pg MCHC 32.5 (32.0-36.0) g/dL RDW Std Deviation 72.5 H (36.4-46.3) fL RDW Coeff of Whitney 21.2 H (11.5-14.5) % Plt Count 156 (130-400) K/uL MPV 11.8 (9.4-12.4) fL Immature Gran % (Auto) 1.3 % Neut % (Auto) 89.8 % Lymph % (Auto) 6.2 % Norton % (Auto) 2.0 % Eos % (Auto) 0.6 % Baso % (Auto) 0.1 % Neut # (Auto) 14.05 H (1.40-6.50) K/uL Lymph # (Auto) 0.97 L (1.20-3.40) K/uL Norton # (Auto) 0.31 (0.11-0.59) K/uL Eos # (Auto) 0.09 (0.00-0.50) K/uL Baso # (Auto) 0.02 (0.00-0.20) K/uL Immature Gran # (Auto) 0.21 H (0.01-0.20) K/uL Absolute Nucleated RBC 0.03 (0.00-0.12) K/uL Nucleated RBC % (auto) 0.2 % Polychromasia 1+ Anisocytosis Present PT 32.4 H (9.0-12.0) Seconds INR 3.2 H (0.9-1.1) APTT 42 H (21-31) Seconds PTT Ratio 1.5 VBG pH 7.45 H (7.36-7.41) VBG pCO2 34 L (38-50) mmHg VBG pO2 60 mmHg VBG HCO3 24 mmol/L VBG O2 Saturation 90.5 % VBG Base Excess 0.1 mEq/L Sodium 136 (136-145) mmol/L Potassium 5.0 (3.5-5.1) mmol/L Chloride 101 (98-107) mmol/L Carbon Dioxide 23 (21-32) mmol/L Anion Gap 12 H (3-11) BUN 28 H (6-23) mg/dl Creatinine 1.27 (0.6-1.4) mg/dl Est Cr Clr Drug Dosing 43.4 ml/min Est GFR ( Amer) 60.6 ml/min Est GFR (Non-Af Amer) 52.3 ml/min BUN/Creatinine Ratio 22.0 H (10-20) Glucose 262 H (70-99(Fasting)) mg/dl Calcium 9.0 (8.6-10.3) mg/dl Total Bilirubin 1.1 H (0.2-1.0) mg/dl AST 18 (13-39) U/L ALT 38 (7-52) U/L Alkaline Phosphatase 63 (34-104) U/L Troponin I High Sens 26.5 H (0-20) pg/ml B-Natriuretic Peptide 1009 H (0-100) pg/ml Total Protein 6.4 (6.0-8.3) gm/dl Albumin 3.7 (3.4-5.0) gm/dl Globulin 2.7 (2.5-4.0) gm/dl Albumin/Globulin Ratio 1.4 (0.9-2) Procalcitonin 0.04 (0-0.5) ng/ml Administered Medications Albuterol (Albut/Ipratrop 3mg/0.5mg Neb 3 Ml Vial) 3 ml NEB Q4R [facility]; Protocol Stop: 12/18/23 18:59 Last Admin: 11/18/23 19:53 Dose: Not Given Documented By: EDENILSON Budesonide (Budesonide 0.5 Mg/2 Ml Vial (Pulmicort)) 0.5 mg NEB BID [facility] Stop: 12/18/23 20:59 Last Admin: 11/18/23 19:53 Dose: 0.5 mg Documented By: EDENILSON Formoterol Fumarate (Formoterol 20 Mcg/2 Ml Vial) 20 mcg NEB BID [facility] Stop: 12/18/23 20:59 Last Admin: 11/18/23 19:53 Dose: 20 mcg Documented By: EDENILSON Guaifenesin (Guaifenesin 600 Mg Tabcr) 1,200 mg PO Q12H [facility] Stop: 12/18/23 17:59 Last Admin: 11/18/23 18:22 Dose: 1,200 mg Documented By: TERESA Warfarin Sodium (Warfarin Sod 2.5 Mg Tab) 2.5 mg PO [id number] [facility] Stop: 12/18/23 17:59 Last Admin: 11/18/23 18:35 Dose: 2.5 mg Documented By: TERESA Discontinued Medications Albuterol (Albut/Ipratrop 3mg/0.5mg Neb 3 Ml Vial) 3 ml INH NOW STA Stop: 11/18/23 14:04 Last Admin: 11/18/23 14:08 Dose: 3 ml Documented By: VIVIANA Albuterol (Albut/Ipratrop 3mg/0.5mg Neb 3 Ml Vial) Confirm Administered Dose 3 ml .ROUTE .STK-MED ONE Stop: 11/18/23 14:06 Last Admin: 11/18/23 14:23 Dose: Not Given Documented By: TERESA Bisacodyl (Bisacodyl 10 Mg Supp) 10 mg MD NOW STA Stop: 11/18/23 16:05 Last Admin: 11/18/23 16:11 Dose: Not Given Documented By: TERESA Furosemide (Furosemide 40 Mg/4 Ml Vial) 40 mg IV ONE ONE Stop: 11/18/23 15:14 Last Admin: 11/18/23 15:22 Dose: Not Given Documented By: BECKY Furosemide (Furosemide 40 Mg/4 Ml Vial) 40 mg IV ONE ONE Stop: 11/18/23 15:17 Last Admin: 11/18/23 15:28 Dose: 40 mg Documented By: BECKY Azithromycin 500 mg/ Dextrose 255 mls @ 125 mls/hr IV ONE ONE Stop: 11/18/23 17:43 Last Infusion: 11/18/23 18:23 Dose: Infused Documented By: Admin: 11/18/23 16:17 Dose: 125 mls/hr Documented By: TERESA Remdesivir 200 mg/ Sodium (Chloride) 250 mls @ 125 mls/hr IV ONE ONE; Protocol Stop: 11/18/23 19:59 Last Infusion: 11/18/23 20:18 Dose: Infused Documented By: [facility] Admin: 11/18/23 18:22 Dose: 125 mls/hr Documented By: TERESA Imaging Data Radiologist's Impression: Chest X-Ray 11/18/23 14:03 SINGLE VIEW CHEST CLINICAL HISTORY: Dyspnea FINDINGS: An AP, portable, upright chest radiograph is compared to study dated 11/03/2023 and correlated with chest CT dated 04/08/2023. The heart is enlarged noting atherosclerotic calcification of the thoracic aorta. The pulmonary vasculature is noncongested. Enlargement of the central pulmonary vessels indicates pulmonary artery hypertension. Advanced emphysema and chronic interstitial thickening is similar to previous. There is bibasilar scarring/atelectasis. No airspace consolidation or large pleural effusion is identified. Irregular airspace opacities again seen in the left upper lobe/lingula. Fibrotic change is noted at the apices. No pneumothorax is seen. The skeletal structures are osteopenic. The bony thorax is grossly intact. IMPRESSION: 1. Cardiomegaly and advanced emphysema without radiographic evidence of congestive failure. 2. No airspace consolidation or large pleural effusion is identified. 3. An irregular opacity in the left upper lobe/lingula is likely unchanged. This was better assessed on prior CT scans. ACT 112: Negative or not required by law. Electronically signed by: Kennedy Pulido M.D. 11/18/2023 2:42 PM Discharge Plan Visit Data Chief Complaint: Shortness of Breath/Dyspnea Stated Complaint: SOB ED Provider: Nils Baxter Discharge Problem: Hypoxia Patient Disposition: Admitted As Inpatient Discharge Instructions Interventions: ED Discharge Assessment Last Done: 11/18/23 17:40
[2023-11-18 14:21] LABS: Base Excess VBG 0.1 mEq/L; HCO3 VBG 24 mmol/L; Oxygen Saturation VBG 90.5 %; PCO2 VBG 34 mmHg (38-50); PO2 VBG 60 mmHg; pH VBG 7.45 (7.36-7.41)
[2023-11-18 14:22] LABS: Basophils # (auto) 0.02 K/uL (0.00-0.20); Basophils % (auto) 0.1 %; Eosinophils # (auto) 0.09 K/uL (0.00-0.50); Eosinophils % (auto) 0.6 %; Hematocrit (blood only) 41.2 % (42.0-52.0); Hemoglobin 13.4 g/dl (14.0-18.0); Immature Granulocytes # (auto) 0.21 K/uL (0.01-0.20); Immature Granulocytes % (auto) 1.3 %; Lymphocytes # (auto) 0.97 K/uL (1.20-3.40); Lymphocytes % (auto) 6.2 %; Mean Corpuscular Hemoglobin 30.5 pg (25.0-34.0); Mean Corpuscular Hgb Conc 32.5 g/dL (32.0-36.0); Mean Corpuscular Volume 93.6 fL (80.0-100.0); Mean Platelet Volume 11.8 fL (9.4-12.4); Monocytes # (auto) 0.31 K/uL (0.11-0.59); Neutrophils # (auto) 14.05 K/uL (1.40-6.50); Neutrophils % (auto) 89.8 %; Nucleated RBC # (auto) 0.03 K/uL (0.00-0.12); Nucleated RBC % (auto) 0.2 %; Platelet Count 156 K/uL (130-400); RDW Coefficient of Variation 21.2 % (11.5-14.5); RDW Standard Deviation 72.5 fL (36.4-46.3); White Blood Count 15.65 K/ul (4.8-10.8)
[2023-11-18] MEDS: ALBUT/IPRATROP 3MG/0.5MG NEB 3 ML VIAL ONE (14:23)
[2023-11-18 14:38] LABS: Anisocytosis Present; Polychromasia 1+
--- NOTE | 2023-11-18 14:43 | XRay Report ---
SINGLE VIEW CHEST CLINICAL HISTORY: Dyspnea FINDINGS: An AP, portable, upright chest radiograph is compared to study dated 11/03/2023 and correlat ed with chest CT dated 04/08/2023. The heart is enlarged noting atherosclerotic calcification of the t horacic aorta. The pulmonary vasculature is noncongested. Enlargement of the central pulmonary vessel s indicates pulmonary artery hypertension. Advanced emphysema and chronic interstitial thickening is similar to previous. There is bibasilar scarring/atelectasis. No airspace consolidation or large pleu ral effusion is identified. Irregular airspace opacities again seen in the left upper lobe/lingula. F ibrotic change is noted at the apices. No pneumothorax is seen. The skeletal structures are osteopeni c. The bony thorax is grossly intact. IMPRESSION: 1. Cardiomegaly and advanced emphysema without radiographic evidence of congestive failure. 2. No airspace consolidation or large pleural effusion is identified. 3. An irregular opacity in the left upper lobe/lingula is likely unchanged. This was better assessed on prior CT scans. ACT 112: Negative or not required by law. Electronically signed by: Kennedy Pulido M.D. 11/18/2023 2:42 PM
[2023-11-18 14:44] LABS: Albumin Globulin Ratio 1.4 (0.9-2); Albumin Level 3.7 gm/dl (3.4-5.0); Bilirubin,Total 1.1 mg/dl (0.2-1.0); Creatinine Clr Calc Pharmacy 43.4 ml/min; Est GFR (African American) 60.6 ml/min; Est GFR (Non-African American) 52.3 ml/min; Globulin 2.7 gm/dl (2.5-4.0); Total Protein 6.4 gm/dl (6.0-8.3)
[2023-11-18 14:51] LABS: INR 3.2 (0.9-1.1); Partial Thromboplastin Ratio 1.5; Partial Thromboplastin Time 42 Seconds (21-31); Prothrombin Time 32.4 Seconds (9.0-12.0); Troponin I High Sensitivity 26.5 pg/ml (0-20)
[2023-11-18 15:03] LABS: Appearance Urine Clear (Clear); Bilirubin Urine Negative (Negative); Blood Urine Negative (Negative); Color Urine Yellow; Glucose Urine UA 3+ (Negative); Ketones Urine Negative (Negative); Leukocyte Esterase Urine Negative (Negative); Nitrite Urine Negative (Negative); Protein Urine Negative (Negative); Urobilinogen Urine Negative (Negative)
--- NOTE | 2023-11-18 15:03 | History & Physical Report ---
Date of Service November 18, 2023 Assessment & Plan (1) COVID-19: Plan: Dexamethasone 6mg IV BID, increased usual dose due to concurrent COPD Remdesivir Consult pulmonology to consider baricitinib and optimize his COPD medications Isolation precautions (2) Acute and chronic respiratory failure with hypoxia: Plan: Secondary to COVID Poor baseline of 5LPM O2 at rest and 7LPm O2 on exertion Keep NPO overnight due to significant respiratory distress No hypercapnia on VBG although this was notably taken while on BiPAP Switch to BiPAP to at night and as needed during the day per patient preference for work of breathing Otherwise aim O2 says 88-92% (3) COPD exacerbation: Plan: Suspect due to COVID Initially given azithromycin prior to biofire result although will discontinue ongoing as no benefit in COVID Dexamethasone as above Duonebs q4h Formoterol/budesonide nebs BID Continue Spiriva refill or hospital formulary equivalent (4) Type 2 diabetes mellitus: Plan: Hemoglobin A1c 6.9 in October Continue Farxiga NovoLog for correction only: --Goal BSG Range: Low 140 mg/dL, High 180 mg/dL --Correction Factor: 50 mg/dL/unit No carb ratio --BSGs ACHS if eating, q6h if npo (5) CHF (congestive heart failure): Plan: Chronic congestive heart failure Low suspicion of acute component despite increased BNP, I suspect this is more from right heart strain He only received one dose of lasix last admission therefore suspect this was more a COPD exacerbation Lasix 40mg IV given in ER but ongoing will continue his usual lasix and spironolactone dosing alone (6) Atrial fibrillation with RVR: Plan: Suspect rate somewhat appropriate, no current plans to slow rate down but may need AV mando blocking agents for a more appropriate rate moving forward Monitor rate on PCU INR supratherapeutic for anticoagulation - initially timed next warfarin dose for tomorrow although this was mistakenly entered as today when the order crossed over to pharmacy, will hold further dosing depending on INR tomorrow Plan VTE prophylaxis - warfarin Diet - NPO Disposition - admit to PCU Admission and Anticipated Discharge Date Admission Date: November 18, 2023 History of Present Illness Chief Complaint: Shortness of breath Primary Care Provider: Arun Alexandre Dru Galvan is an 83-year-old male with known end-stage COPD on 5LPM at rest and 7LPM O2 on exertion who presents to the ER due to shortness of breath. SpO2 65 to 67% on his usual 7 L when EMS arrived. He was placed immediately on BiPAP and administered 125 mg Solu-Medrol (this morning at 9:30am). He has known atrial fibrillation. The patient reports his symptoms started suddenly yesterday afternoon but much worse today as he was so short of breath he couldn't even eat. No fever or chills. No cough. No chest pain. No coughing/choking after eating (noted food bolus stuck in esophagus in March 2023). He has had repeated admission at [facility] and [facility] for his COPD this year. Allergies Allergy/AdvReac Type Severity Reaction Status Date / Time pollen extracts Allergy Mild Sneezing Verified 11/18/23 15:33 Home Medications Medication Instructions Recorded Confirmed Type atorvastatin 10 mg tablet 10 mg PO QAM 04/07/19 11/18/23 History fluticasone 250 mcg-salmeterol 50 1 inh inhalation BID 04/07/19 11/18/23 History mcg/dose blistr powdr for inhalation (Advair Diskus) montelukast 10 mg tablet 10 mg PO QAM 05/10/20 11/18/23 History oxburvmajnql-rddkixmu-mldeen tablet 1 tab PO DAILY 04/05/23 11/18/23 History vit C 250 mg-vit E 90 mg-zinc 40 2 tab PO QAM 04/05/23 11/18/23 History mg-copper 1 yi-tsqoix-fakmyn capsule (PreserVision AREDS-2) Oxygen Home E0424 #1 ea 04/14/23 Rx furosemide 20 mg tablet 20 mg PO QAM #30 tabs 04/14/23 11/18/23 Rx metoprolol succinate 50 mg 50 mg PO QAM #30 tabs 04/14/23 11/18/23 Rx tablet,extended release 24 hr albuterol sulfate 90 mcg/actuation 2 puff inhalation Q6H PRN 10/29/23 11/18/23 History aerosol inhaler sob/wheezing cholecalciferol (vitamin D3) 50 50 mcg PO DAILY 10/29/23 11/18/23 History mcg (2,000 unit) capsule (Vitamin D3) dapagliflozin propanediol 10 mg 10 mg PO QAM 10/29/23 11/18/23 History tablet (Farxiga) guaifenesin 600 mg tablet, 1,200 mg PO Q12H PRN Mucus 10/29/23 11/18/23 History extended release 12 hr (Mucinex) hydroxyzine HCl 10 mg tablet 10 mg PO TID PRN anxiety 10/29/23 11/18/23 History melatonin 3 mg tablet 3 mg PO HS PRN Sleep 10/29/23 11/18/23 History metformin 500 mg tablet 500 mg PO BID 10/29/23 11/18/23 History spironolactone 25 mg tablet 12.5 mg PO QAM 10/29/23 11/18/23 History tiotropium bromide 2.5 1 puff inhalation BID 10/29/23 11/18/23 History mcg/actuation mist for inhalation (Spiriva Respimat) trazodone 50 mg tablet 50 mg PO HS PRN Sleep 10/29/23 11/18/23 History prednisone 5 mg tablet 5 mg PO QAM 11/18/23 11/18/23 History warfarin 5 mg tablet See Rx Instructions .Route .COMPLEX 11/18/23 11/18/23 History Past Med/Surg History Medical History (Updated 11/18/23 @ 21:39 by Ace Shabazz MD) DVT prophylaxis Lower extremity edema Food impaction of esophagus COPD (chronic obstructive pulmonary disease) CAD (coronary artery disease) Dyslipidemia HTN (hypertension) Emphysema of lung Family History Other Family history non-contributory Social History Smoking Status: Former smoker Tobacco Type: Cigarettes and Smokeless Tobacco (Dip or Chew) Smoking End Date: 1978; Second Hand Exposure: No; Do You Dip or Chew Tobacco: Yes; Hx Alcohol Use: No Hx Substance Use: No Preferred Language: Zambian Communication Ability: Effective 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: No Beliefs That Will Affect Care: None marital status: Current Living Situation: Rehab Current Living Situation Comment: lives at home with , son checks in regularly current occupational status: retired Other Information That Helps Us Care for You: No Feels Safe at Home: Yes Safety Concerns: Feels Safe At This Time Assistive Devices: Denture - Upper, Denture - Lower, Glasses, Oxygen - Continuous and Walker Review of Systems Review of Systems: All systems reviewed & are unremarkable except as noted in HPI & below Physical Exam Constitutional: well developed and + acute distress (respiratory); + not well nourished Eyes: + anicteric sclerae; normal pupil size Respiratory: + respiratory distress, + labored breath ing, + uses accessory muscles and + prolonged expiratory phase; + not able to speak in complete sentence and no audible wheezes Auscultation: + diminished lung sounds (throughout) and + crackles (bibasal); no wheezes Cardiovascular: Rate/Rhythm: regular rate and + irregularly irregular Heart Sounds: no murmur Extremities: normal capillary refill; no calf tenderness and no pedal edema Gastrointestinal (Abdomen): normal bowel sounds, soft, nontender, no hepatosplenomegaly Musculoskeletal: no cyanosis or clubbing, extremities motor strength 5/5 Skin: no rashes, warm and dry Neurologic: moves all extremities and awake; not confused Psychiatric: A+Ox3, euthymic affect Results & Data Results & Data Vital Signs (Past 12 Hours) Vital Signs Temp Pulse Pulse Resp BP BP Pulse Ox 11/18/23 14:08 126 H 25 H 96 11/18/23 14:02 127 H 28 H 100/57 L 94 11/18/23 14:02 11/18/23 14:02 11/18/23 14:02 37.2 C 120 H 32 H 100/57 L 92 11/18/23 13:56 126 H 25 H 96 O2 Del Method FiO2 11/18/23 14:08 BiPAP 40 11/18/23 14:02 CPAP, Nebulizer 11/18/23 14:02 CPAP 11/18/23 14:02 CPAP 11/18/23 14:02 CPAP 11/18/23 13:56 40 Laboratory Results Abnormal lab results 11/18/23 Range/Units 14:00 WBC 15.65 H (4.8-10.8) K/ul RBC 4.40 L (4.70-6.10) M/uL Hgb 13.4 L (14.0-18.0) g/dl Hct 41.2 L (42.0-52.0) % RDW Std Deviation 72.5 H (36.4-46.3) fL RDW Coeff of Whitney 21.2 H (11.5-14.5) % Neut # (Auto) 14.05 H (1.40-6.50) K/uL Lymph # (Auto) 0.97 L (1.20-3.40) K/uL Immature Gran # (Auto) 0.21 H (0.01-0.20) K/uL PT 32.4 H (9.0-12.0) Seconds INR 3.2 H (0.9-1.1) APTT 42 H (21-31) Seconds VBG pH 7.45 H (7.36-7.41) VBG pCO2 34 L (38-50) mmHg Anion Gap 12 H (3-11) BUN 28 H (6-23) mg/dl BUN/Creatinine Ratio 22.0 H (10-20) Glucose 262 H (70-99(Fasting)) mg/dl Total Bilirubin 1.1 H (0.2-1.0) mg/dl Troponin I High Sens 26.5 H (0-20) pg/ml Diagnostic Findings SINGLE VIEW CHEST CLINICAL HISTORY: Dyspnea FINDINGS: An AP, portable, upright chest radiograph is compared to study dated 11/03/2023 and correlated with chest CT dated 04/08/2023. The heart is enlarged noting atherosclerotic calcification of the thoracic aorta. The pulmonary vasculature is noncongested. Enlargement of the central pulmonary vessels indicates pulmonary artery hypertension. Advanced emphysema and chronic interstitial thickening is similar to previous. There is bibasilar scarring/atelectasis. No airspace consolidation or large pleural effusion is identified. Irregular airspace opacities again seen in the left upper lobe/lingula. Fibrotic change is noted at the apices. No pneumothorax is seen. The skeletal structures are osteopenic. The bony thorax is grossly intact. IMPRESSION: 1. Cardiomegaly and advanced emphysema without radiographic evidence of congestive failure. 2. No airspace consolidation or large pleural effusion is identified. 3. An irregular opacity in the left upper lobe/lingula is likely unchanged. This was better assessed on prior CT scans. Medications Administered ER medications given: DuoNeb 3 mL NEB ECG Rate (beats per minute): 120 Rhythm: atrial fibrillation Code Status & VTE Plan Code Status DNR/DNI VTE Prophylaxis Plan VTE Prophylaxis will be ordered: Yes PG Care Time/CCT Total # of Minutes Spent Total Time Spent with Patient: Total time spent is greater than 50% in coordination of care (as documented) at patient's floor/unit and/or counseling patient: Coding Level of Care Code 00973 INT INP/OBS CARE MIN Diagnoses COVID-19 U07.1 Acute and chronic respiratory failure with hypoxia J96.21 COPD exacerbation J44.1 Type 2 diabetes mellitus E11.9 CHF (congestive heart failure) I50.9 Atrial fibrillation with RVR I48.91
[2023-11-18] MEDS: FUROSEMIDE 40 MG/4 ML VIAL IV ONE ×2 (15:22→15:28)
[2023-11-18 15:55] LABS: Adenovirus PCR Not Detected (NotDetected); Bordetella parapertussis PCR Not Detected (NotDetected); Bordetella pertussis PCR Not Detected (NotDetected); Chlamydia pneumoniae PCR Not Detected (NotDetected); Coronavirus 229E PCR Not Detected (NotDetected); Coronavirus CoV-2 (COVID19)PCR DETECTED (NotDetected); Coronavirus HKU1 PCR Not Detected (NotDetected); Coronavirus NL63 PCR Not Detected (NotDetected); Coronavirus OC43PCR Not Detected (NotDetected); Human Metapneumovirus PCR Not Detected (NotDetected); Influenza A PCR Not Detected (NotDetected); Influenza B PCR Not Detected (NotDetected); Mycoplasma pneumoniae PCR Not Detected (NotDetected); Parainfluenza Virus 1 PCR Not Detected (NotDetected); Parainfluenza Virus 2 PCR Not Detected (NotDetected); Parainfluenza Virus 3 PCR Not Detected (NotDetected); Parainfluenza Virus 4 PCR Not Detected (NotDetected); Respiratory Syncytial VirusPCR Not Detected (NotDetected); Rhinovirus/Enterovirus PCR Not Detected (NotDetected)
[2023-11-18] MEDS: bisacodyL 10 MG SUPP PR STA (16:11)
[2023-11-18] MEDS: AZITHROMYCIN 500 MG in DEXTROSE 5% 250 ML IV ONE (16:17)
[2023-11-18 17:12] LABS: C Reactive Protein 8.5 mg/dl (0-0.5)
[2023-11-18] MEDS ORDERED: ACETAMINOPHEN 325 MG TAB PO PRN (17:40)
[2023-11-18] MEDS: REMDESIVIR 200 MG in SODIUM CHLORIDE 0.9% 210 ML IV ONE (18:22)
[2023-11-18] MEDS: guaiFENesin 600 MG TABCR PO SCH (18:22)
[2023-11-18] MEDS: WARFARIN SOD 2.5 MG TAB PO SCH (18:35)
[2023-11-18] MEDS: BUDESONIDE 0.5 MG/2 ML VIAL (PULMICORT) NEB SCH (19:53)
[2023-11-18] MEDS: FORMOTEROL 20 MCG/2 ML VIAL NEB SCH (19:53)
[2023-11-18] MEDS: ALBUT/IPRATROP 3MG/0.5MG NEB 3 ML VIAL NEB SCH (19:53)
[2023-11-18 20:01] LABS: Magnesium 2.3 mg/dl (1.7-2.4)
[2023-11-18] MEDS ORDERED: DEXAMETHASONE SOD INJ 4 MG/ML VIAL IV SCH (21:00)
[2023-11-18] MEDS ORDERED: GLUCAGON FOR INJ 1 MG VIAL SQ PRN (21:41)
[2023-11-18] MEDS ORDERED: GLUCOSE 10 TAB/TUBE PO PRN (21:41)
[2023-11-18] MEDS ORDERED: DEXTROSE 50% 50 ML SYRINGE IV PRN (21:41)
[2023-11-18] MEDS ORDERED: GLUCOSE 40% GEL 15 GM TUBE PO PRN (21:41)
[2023-11-18] MEDS ORDERED: CARBOHYDRATES FOR HYPOGLYCEMIA PO PRN (21:41)
[2023-11-18] MEDS: dexAMETHasone 6 MG in SYRINGE 0 ML IV SCH (22:56)
[2023-11-19] MEDS: DAPAGLIFLOZIN PROPANEDIOL 10 MG SCH (01:38)
--- OUTSIDE RECORDS SUMMARY | 2023-11-19 03:22 | External Medical Summary | Summary of Care ---
Author Name Unknown Organization [facility] Address [address] [place] [address] Phone [phone] Care Team Providers Care Cross Tie Tram Loader Name Role Phone Arun Alexandre MD Primary Care Provider [phone] Reason for Visit * Reason Onset Date Comments Complicated Acute Visit 11/18/2023 Encounter Details Date Type Department Care Team (Latest Contact Info) Description 11/18/2023 6:00 AM EDT [facility] Visit [facility] [address] [place] [address] Anamika Myers PA-C [address] [place] [address] Acute on chronic respiratory failure with hypoxia ([facility])*; COPD, group D, by GOLD 2017 classification ([facility]); PAF (paroxysmal atrial fibrillation) ([facility]); Type 2 diabetes mellitus with stage 3a chronic kidney disease, without long-term current use of insulin ([facility]) Allergies Active Allergy Reactions Criticality Noted Date Comments Isosorbide Nitrate 05/07/2021 Headache Pollen Other (Please comment) 01/17/2014 Runny nose, itchy eyes, nasal congestion documented as of this encounter (statuses as of 11/18/2023) Medications Medication Sig Dispensed Refills Start Date End Date Status Multiple Vitamins-Minerals (PRESERVISION/LUTEIN) Capsule Take 2 Capsules by mouth in the morning. 0 Active oxygen GAS Use 2 L/min(Oxygen) as directed in the morning. Using 5 LPM continuous. 0 02/05/2016 Active Fluticasone-Salmetero l 250-50 MCG/DOSE Inhalation Aerosol Powder Breath Activated (Advair Diskus)Indications:CO PD, group D, by GOLD 2017 classification ([facility]) Inhale 1 Puff by mouth 2 times a day. 180 Each 3 05/16/2021 Active Montelukast Sodium 10 MG Oral Tablet (Singulair)Indication s:COPD, group D, by GOLD 2017 classification ([facility]) Take 1 Tab by mouth every evening. 90 Tab 3 05/16/2021 Active guaiFENesin ER 600 MG Oral Tablet Extended Release 12 Hour Take 1 Tablet by mouth in the morning. 0 Active D3 50 MCG (2000 UT) Oral Tablet (Cholecalciferol) Take 1 Tablet by mouth in the morning. 25 mcg. 0 Active metFORMIN HCl 500 MG Oral Tablet (Glucophage) Take 1 Tablet by mouth 2 times a day with morning and evening meals. 0 05/20/2023 Active Metoprolol Succinate ER 50 MG Oral Tablet Extended Release 24 Hour (Toprol XL)Indications:Vitami n D deficiency,Screening for prostate cancer,Encounter for long-term (current) use of other medications Take 1 Tablet by mouth in the morning. 135 Tablet 3 05/22/2023 Active Warfarin Sodium 5 MG Oral Tablet (Coumadin)Indications :PAF (paroxysmal atrial fibrillation) ([facility]),Anticoagulation management encounter,Anticoagula nt long-term use Take 1 Tablet by mouth every evening. 30 Tablet 5 05/22/2023 Active Spironolactone 25 MG Oral Tablet (Aldactone) TAKE ONE-HALF TABLET BY MOUTH IN THE MORNING 45 Tablet 3 10/05/2023 Active Ipratropium [place] 0.02 % Inhalation Solution (Atrovent) Inhale 2.5 [...] food, as instructed.. 30 Tablet 2 10/28/2023 01/26/2024 Active Centrum Silver Oral Tablet Take 1 Tablet by mouth in the morning. 0 11/09/2023 Active Atorvastatin Calcium 10 MG Oral Tablet (Lipitor)Indications: Dyslipidemia, goal LDL below 70 Take 1 Tablet by mouth in the morning. 0 11/09/2023 Active Tiotropium [place] Monohydrate 18 MCG Inhalation Capsule (Spiriva HandiHaler) Inhale 1 Capsule by mouth in the morning. For inhaler only, do not swallow.. 0 11/09/2023 Active Dapagliflozin Propanediol 10 MG Oral Tablet (Farxiga) Take 1 Tablet by mouth in the morning. 0 11/09/2023 Active hydrOXYzine HCl 10 MG Oral Tablet (Atarax) Take 1 Tablet by mouth every 8 hours as needed for Anxiety. 0 11/09/2023 Active traZODone HCl 50 MG Oral Tablet (Desyrel) Take 1 Tablet by mouth at bedtime as needed for Sleep. 0 11/09/2023 Active Furosemide 20 MG Oral Tablet (Lasix) Take 1 Tablet by mouth in the morning. 0 11/11/2023 Active Melatonin 5 MG Oral Tablet Take 1 Tablet by mouth at bedtime. 0 11/13/2023 Active Tamsulosin HCl 0.4 MG Oral Capsule (Flomax) Take 1 Capsule by mouth every evening. 0 11/17/2023 Active documented as of this encounter (statuses as of 11/18/2023) Active Problems Problem Noted Date Diagnosed Date Type 2 diabetes mellitus wit h stage 3a chronic kidney disease, without long-term current use of insulin 11/09/2023 Esophageal dysmotility 11/09/2023 History of 2019 novel coronavirus disease (COVID -19) 11/09/2023 DNR (do not resuscitate) 11/09/2023 History of tobacco use 11/09/2023 Left upper lobe pulmonary nodule 11/09/2023 Vitamin B deficiency 05/22/2023 Vitamin D deficiency 05/22/2023 Screening for prostate cancer 05/22/2023 PAF (paroxysmal atrial fibrillation) 05/22/2023 Need for prophylactic vaccin ation and inoculation against influenza 05/22/2023 Anticoagulant long-term use 05/22/2023 PHT (pulmonary hypertension) 05/16/2021 ILD (interstitial lung disease) 05/16/2021 Chronic respiratory failure with hypoxia 021 Chronic diastolic heart failure 05/16/2021 COPD, group D, by GOLD 2017 classification 02/25 Overview: Per COPD GOLD Classification Sebaceous adenoma 01/26/2019 Dyslipidemia, goal LDL below 70 06/07/2018 Nonobstructive [...] as of this encounter (statuses as of 11/18/2023) Resolved Problems Problem Noted Date Diagnosed Date Resolved Date Encounter for long-term (cur rent) use of other medications 05/22/2023 11/09/2023 Anticoagulation management encounter 05/22/2023 11/09/2023 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 Name: Dru Galvan Date of :1940 TRANSITION EVENT: Type: Complicated acute visit Date: November 17 Code Status: No Code This note pertains to care provided at [facility]. Please see facility medical record for original note. This note is not to be edited or addended in [place]. Editing or addending needs to occur in the facilities medical record. Subjective: Dru Galvan is a 83 year old male. Patient being seen for exacerbation of dyspnea, hypoxia and tachypnea this morning Chief Complaint Patient presents with Complicated Acute Visit HPI: I was asked to assess pt for increased dyspnea, tachypnea and hypoxia in the mid 60's to 70's%despite nasal O2 at 7 liters. Pt has severe COPD, chronic hypoxic respiratory failure, ILD and pulmonary HTN. He is currently on tapering dose of Prednisone prescribed at his last [facility] admission. He is also on Advair discus, Duonebs prn and Spirva daily and Singulair 10mg daily. BP: 116/78mmHg. HR:in the upper 90's. Afebrile. Therapy just sat pt up at side of bed and symptoms were provoked. Pt has end stage lung disease. No chest pains, palpitatoins, dizziness, syncope, nausea or vomiting. CBC Results: Results for orders placed or performed in visit on 11/09/23 CBC Result Value Ref Range WBC 11.91 (H) 4.00 - 10.80 K/uL RBC 3.98 4.50 - 5.25 M/uL HGB 12.2 (L) 14.0 - 16.8 g/dL HCT 37.8 (L) 40.0 - 48.4 % MCV 95.0 82.0 - 99.5 fL MCH 30.7 27.0 - 34.0 pg MCHC 32.3 32.0 - 36.0 g/dL RDW 21.7 11.5 - 15.5 % PLT 170 140 - 400 K/uL MPV 12.1 6.6 - 11.1 fL Hemoglobin Results: Lab Results Component Value Date/Time HGB 12.2 (L) 11/09/2023 06:17 AM HGB 15.6 05/22/2023 11:40 AM HGB 15.0 11/19/2021 09:58 AM HGB 15.2 04/24/2020 11:57 AM HGB 15.2 01/25/2019 10:57 AM HGB 14.6 02/05/2016 03:28 PM COMPREHENSIVE METABOLIC PANEL Order: [id number] Status: Final result Visible to patient: Yes (not seen) Next appt: 11/25/2023 at 05:30 PM in Pharmacy ([facility]) Dx: A-fib (HCC); DM (diabetes mellitus) (... 0 Result Notes 1 Topic Component Ref Range & Units 7 d ago BUN 6 - 20 mg/dL 30 High Creatinine 0.6 - 1.2 mg/dL 1.2 Estimated Glomerular Filtration Rate >=60 mL/min 59 Low Comment: eGFR is calculated based on the CKD-EPI 2020 equation Sodium 135 - 146 mmol/L 141 Potassium 3.5 - 5.1 mmol/L 4.5 Chloride 98 - 107 mmol/L 106 CO2 22 - 32 mmol/L 24 Anion Gap 7 - 15 mmol/L 11 Glucose 70 - 120 mg/dL 105 Albumin 3.8 - 5.0 g/dL 3.3 Low AST 10 - 50 U/L 15 Alkaline Phosphatase 35 - 130 U/L 54 Bilirubin, Total <=1.2 mg/dL 0.4 Calcium 8.4 - 10.2 mg/dL 9.0 Protein 6.0 - 8.3 g/dL 5.1 Low ALT 10 - 50 U/L 54 High Resulting [facility] Specimen Collected: 11/11/23 05:59 Last Resulted: 11/11/23 08:27 Creatinine Results: Lab Results Component Value Date/Time CREATININE - [facility] 1.2 11/11/2023 05:59 AM CREATININE - [facility] 1.3 (H) 11/09/2023 06:17 AM CREATININE - [facility] 1.0 01/06/2022 12:09 PM CREATININE - [facility] 1.0 04/24/2020 11:57 AM CREATININE - [facility] 1.1 05/02/2019 09:28 AM CREATININE - [facility] 0.9 01/25/2019 10:57 AM CREATININE-[facility] 1.01 01/08/2016 12:00 AM Potassium Results: Lab Results Component Value Date/Time POTASSIUM - [facility] 4.5 11/11/2023 05:59 AM POTASSIUM - [facility] 4.5 11/09/2023 06:17 AM POTASSIUM - [facility] 4.7 01/06/2022 12:09 PM POTASSIUM - [facility] 4.5 04/24/2020 11:57 AM POTASSIUM - [facility] 4.7 05/02/2019 09:28 AM POTASSIUM - [facility] 4.5 01/25/2019 10:57 AM POTASSIUM-[facility] 5.1 (A) 01/08/2016 12:00 AM Sodium Results: Lab Results Component Value Date/Time SODIUM - [facility] 141 11/11/2023 05:59 AM SODIUM - [facility] 142 11/09/2023 06:17 AM SODIUM - [facility] 137 01/06/2022 12:09 PM SODIUM - [facility] 139 04/24/2020 11:57 AM SODIUM - [facility] 141 05/02/2019 09:28 AM SODIUM - [facility] 136 01/25/2019 10:57 AM Patient Active Problem List Diagnosis Code AK (actinic keratosis) L57.0 Hx of nonmelanoma skin cancer Z85.828 HTN, goal below 140/90 I10 Dyslipidemia, goal LDL below 70 E78.5 Nonobstructive atherosclerosis of coronary artery I25.10 Ventricular ectopy I49.3 Atrial ectopy I49.1 Sebaceous adenoma D23.9 COPD, group D, by GOLD 2017 classification ([facility]) J44.9 PHT (pulmonary hypertension) ([facility]) I27.20 ILD (interstitial lung disease) (HCC) J84.9 Chronic respiratory failure with hypoxia (HCC) J96.11 Chronic diastolic heart failure (HCC) I50.32 Vitamin B deficiency E53.9 Vitamin D deficiency E55.9 Screening for prostate cancer Z12.5 PAF (paroxysmal atrial fibrillation) (HCC) I48.0 Need for prophylactic vaccination and inoculation against influenza Z23 Anticoagulant long-term use Z79.01 Type 2 diabetes mellitus with stage 3a chronic kidney disease, without long-term current use of insulin (HCC) E11.22, N18.31 Esophageal dysmotility K22.4 History of 2019 novel coronavirus disease (COVID-19) Z86.16 DNR (do not resuscitate) Z66 History of tobacco use Z87.891 Left upper lobe pulmonary nodule R91.1 Past Medical History: Diagnosis Date COPD (chronic obstructive pulmonary disease) (HCC) ILD (interstitial lung disease) (HCC) Lung nodule Pulmonary arterial hypertension (HCC) No past surgical history on file. Family History Problem Relation Age of Onset Heart Disorder Grandfather (Maternal) 80 [place] Renal Hx Mother ESRD Breast Cancer Mother [...] level: Not on file Occupational History Occupation: [employer] Comment: worked with fumes; wasn't in the [employer] Tobacco Use Smoking status: Former Current packs/day: [...] Housing Stability: Not on file Review of patient's allergies indicates: Allergen Reactions Imdur [Isosorbide Nitrate] Headache Pollen Other (Please comment) Runny nose, itchy eyes, nasal congestion I have reviewed medications and allergies. Please refer to MAR in the facility's medical record forthe most up-to-date medication list as this cannot be edited in [facility]. Review of Systems: Constitutional ROS: No change in weight, + weakness, + fatigue and No fevers, sweats, or chills Eye ROS: No recent significant change in vision, No eye pain, redness, discharge and No diplopia Nose ROS: No nasal stuffiness and No significant epistaxis Mouth/Throat ROS: No thrush or No sore throat Neck ROS: No lumps or masses, No swollen glands, No recent swelling in thyroid area and No significant pain in neck Pulmonary ROS: see HPI Cardiovascular ROS: No chest pain, + shortness of breath, No edema, No palpitations and No syncope Gastrointestinal ROS: No abdominal pain, No change in bowel habits, No significant change in appetite, No nausea, vomiting, diarrhea, or constipation and No dysphagia Skin/Integumentary ROS: No rash and No itching Neurologic ROS: No headaches and No seizures Psychiatric ROS: No depression, No anxiety and No psychosis Sleep: No sleep disorders OBJECTIVE: PHYSICALEXAM: I reviewed the most recent facilities vitals. General: alert, dyspneic well nourished and well developed Eye Exam: Conjunctiva are pink and non-injected, sclera clear Nose: no mucosal erythema, no mucosal edema, no purulent discharge Oropharynx: no exudate, no erythema, lips, buccal mucosa, and tongue normal and mucous membranes are moist Neck: supple, no adenopathy, non-tender, neck veins flat, trachea midline Heart: regular rhythm, tachycardic no murmurs and no gallops Lungs: normal respiratory rate and rhythm, no chest wall tenderness, lungs decreased BS, rhonchi audible. No crackles or rales Abdomen: abdomen soft, non-tender, normal bowel sounds and no masses or organomegaly Extremities: , no edema, no clubbing, no cyanosis Skin: skin color, texture, turgor are normal, no rashes or significant lesions ASSESSMENT: Acute on chronic respiratory failure with hypoxia (HCC) (Primary) Duoneb treatment given along with Solu Medrol 125mg IM with relief. Pt states "I think I'm breathing better" O2 saturations in upper 70's%. Pulse oximetry could be inaccurate due to pt's fingers being cold. Vital signs stable currently Continue O2 as directed COPD, group D, by GOLD 2017 classification ([facility]) Continue Albuterol prn as directed, Advair 250/50mcg BID ,Spiriva daily ,Singulair 10mg daily and prednisone taper PAF (paroxysmal atrial fibrillation) ([facility]) Stable currently Continue Coumadin per anticoagulation clinic Type 2 diabetes mellitus with stage 3a chronic kidney disease, without long-term current use of insulin ([facility]) Stable glucoses Continue Metformin 500mg BiD PLAN: Pt has end stage lung disease. Poor prognosis and Continue present medication(s):as ordered. Fpc Home Treatment Given: as above Electronically signed by: Anamika Myers PA-C Over 45 minutes were spent in this visit more than half the time was spent counselling or coordinating care. documented in this encounter Plan of Treatment Upcoming Encounters Date Type Department Care Team (Late st Contact Info) Description 11/25/2023 5:30 PM EDT Anticoagulation Pharmacy Call Center [phone] [facility] [place] [address] [facility] [address] [facility] [address] 12/29/2023 10:20 AM EDT Office Visit Pulmonary Medicine, [facility] [address] [facility] [place] [address] Jack eDsouza MD [address] [facility] [place] [address] Health Maintenance Due Date Last Done Comments HbA1c 1946 Pneumococcal Vaccine: 65+ Years (1 of 2 - PCV) 1946 Depression Screening 1953 Albumin/Creatinine Ratio 1959 CKD PHOS USE SMARTSET 24782 1959 Diabetic Eye Exam 1959 Diabetic Foot Exam 1959 DTaP,Tdap,and Td Vaccines (1 - Tdap) 1960 Zoster Vaccines (1 of 2) 1991 *ADVANCE DIRECTIVE NOT ON FILE 05/13/2020 COVID-19 Vaccine ( season) 2023 10/12/2020, 09/14/2020 GFR 05/13/2024 11/11/2023, 10/16, 01/06/2022, Additional history exists O2 ASSESSMENT COMPLETED IN PAST YEAR FOR COPD 10/27/2024 10/28/2023 CKD HGB USE SMARTSET 97289 11/08/202411/08, 11/09/2023, 05/22/2023, Additional history exists Alpha-1 Antitrypsin Completed 05/09/2020 Influenza Vaccine (FLU [...] as of this encounter Visit Diagnoses Diagnosis Acute on chronic respiratory failure with hypoxia (HCC)- Primary COPD, group D, by GOLD 2017 classification (HCC) PAF (paroxysmal atrial fibrillation) (HCC) Atrial fibrillation Type 2 diabetes mellitus with stage 3a chronic kidney disease, without long-term current use of insulin (HCC) documented in this encounter Care Teams Cross Tie Tram Loader Relationship Specialty Start Date End Date Arun Alexandre MD [address] [place] [address] PCP - General Family Medicine 05/17/18 documented as of this encounter
--- OUTSIDE RECORDS SUMMARY | 2023-11-19 03:22 | External Medical Summary | Summary of Care ---
Author Name Unknown Organization [facility] Address [address] [place] [address] Phone [phone] Care Team Providers Care Heating And Air Conditioning Mechanic Name Role Phone Arun Alexandre MD Primary Care Provider [phone] Reason for Visit * Reason Onset Date Comments Skilled Visit 11/13/2023 Encounter Details Date Type Department Care Team (Latest Contact Info) Description 11/13/2023 6:30 AM EDT Detention Visit [facility] [address] [place] [address] Anamika Myers PA-C [address] [place] [address] Acute on chronic respiratory failure with hypoxia (HCC)*; Chronic diastolic heart failure (HCC); COPD, group D, by GOLD 2017 classification ([facility]); Type 2 diabetes mellitus with stage 3a chronic kidney disease, without long-term current use of insulin ([facility]) Allergies Active Allergy Reactions Criticality Noted Date Comments Isosorbide Nitrate 05/07/2021 Headache Pollen Other (Please comment) 01/17/2014 Runny nose, itchy eyes, nasal congestion documented as of this encounter (statuses as of 11/13/2023) Medications Medication Sig Dispensed Refills Start Date End Date Status Multiple Vitamins-Minerals (PRESERVISION/LUTEIN ) Capsule Take 2 Capsules by mouth in the morning. 0 Active oxygen GAS Use 2 L/min(Oxygen) as directed in the morning. Using 5 LPM continuous. 0 02/05/2016 Active Fluticasone-Salmeter ol 250-50 MCG/DOSE Inhalation Aerosol Powder Breath Activated (Advair Diskus)Indications:C OPD, group D, by GOLD 2017 classification ([facility]) Inhale 1 Puff by mouth 2 times a day. 180 Each 3 05/16/2021 Active Montelukast Sodium 10 MG Oral Tablet (Singulair)Indicatio ns:COPD, group D, by GOLD 2017 classification ([facility]) Take 1 Tab by mouth every [...] Tablet (Coumadin)Indication s:PAF (paroxysmal atrial fibrillation) ([facility]),Anticoagulatio n management encounter,Anticoagul ant long-term use Take 1 Tablet by mouth every evening. 30 Tablet 5 05/22/2023 Active Spironolactone 25 MG Oral Tablet (Aldactone) TAKE ONE-HALF TABLET BY MOUTH IN THE MORNING 45 Tablet 3 10/05/2023 Active Ipratropium [place] 0.02 % Inhalation Solution (Atrovent) Inhale 2.5 [...] food, as instructed.. 30 Tablet 2 10/28/2023 Active Centrum Silver Oral Tablet Take 1 Tablet by mouth in the morning. 0 11/09/2023 Active Atorvastatin Calcium 10 MG Oral Tablet (Lipitor)Indications :Dyslipidemia, goal LDL below 70 Take 1 Tablet by mouth in the morning. 0 11/09/2023 Active Tiotropium [place] Monohydrate 18 MCG Inhalation Capsule (Spiriva HandiHaler) [...] by mouth at bedtime. 0 11/13/2023 Active Melatonin 3 MG Oral Tablet Take 1 Tablet by mouth at bedtime. 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, R dorsal hand, R scalp 2018, L dorsal wrist 06/07), basal cell carcinoma (L forearm, L preauricular region 09/2019) AK (actinic keratosis) 05/24/2014 Overview: Efudex 04/2014 documented as of this encounter (statuses as of 11/13/2023) Resolved Problems Problem Noted Date Diagnosed Date Resolved Date Encounter for long-term (cur rent) use of other medications 05/22/2023 11/09/2023 Anticoagulation management encounter 05/22/2023 11/09/2023 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 07/01/2019 09/28/2019 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 Please see facility medical record for original note. This note is not to be edited or addended in [employer]. Editing or addending needs to occur in the facilities medical record. Subjective: Dru Galvan is a 83 year old male. Patient being seen for skilled visit Chief Complaint Patient presents with Skilled Visit HPI: pt here for rehabilitation following [facility] admission for acute on chronic respiratory failure, acute on chornic diastolic CHF. Pt already had Therapy this morning and ambulated 70 feet and went up and down four stairs. Required to rest in between but pt states this is the best he's done "in a long time". He is sleeping better at night now with increase in Melatonin to 5mg HS and making his Trazodone 50mg HS routine. Vital signs stable. Eating and drinking ok. He is anxious to return home but would like to have a higher concentrator and also a portable concentrator for home use. BMs and voiding ok. CBC Results: Results for orders placed or [...] 10:57 AM HGB 14.6 02/05/2016 03:28 PM Basic Panel Results: Results for orders placed or performed in visit on 11/09/23 BASIC METABOLIC PANEL Result Value Ref Range BUN 32 (H) 6 - 20 mg/dL Creatinine 1.3 (H) 0.6 - 1.2 mg/dL Estimated Glomerular Filtration Rate 54 (L) >=60 mL/min Sodium 142 135 - 146 mmol/L Potassium 4.5 3.5 - 5.1 mmol/L Chloride 108 (H) 98 - 107 mmol/L CO2 25 22 - 32 mmol/L Anion Gap 9 7 - 15 mmol/L Glucose 104 70 - 120 mg/dL Calcium 8.7 8.4 - 10.2 mg/dL Creatinine Results: Lab Results Component Value Date/Time [...] group D, by GOLD 2017 classification ([facility]) J44.9 PHT (pulmonary hypertension) ([facility]) I27.20 ILD (interstitial lung disease) ([facility]) J84.9 Chronic respiratory failure with hypoxia ([facility]) J96.11 Chronic diastolic heart failure ([facility]) I50.32 Vitamin B deficiency E53.9 Vitamin D deficiency E55.9 Screening for prostate cancer Z12.5 PAF (paroxysmal atrial fibrillation) ([facility]) I48.0 Need for prophylactic vaccination and inoculation against influenza Z23 Anticoagulant long-term use Z79.01 Type 2 diabetes mellitus with stage 3a chronic kidney disease, without long-term current use of insulin ([facility]) E11.22, N18.31 Esophageal dysmotility K22.4 History of 2019 novel coronavirus disease (COVID-19) Z86.16 DNR (do not resuscitate) Z66 History of tobacco use Z87.891 Left upper lobe pulmonary nodule R91.1 Past Medical History: Diagnosis Date COPD (chronic obstructive pulmonary disease) ([facility]) ILD (interstitial lung disease) (HCC) Lung nodule Pulmonary arterial hypertension (HCC) No past surgical history on file. Family History Problem Relation Age of Onset Heart Disorder Grandfather (Maternal) 80 [place] Renal Hx Mother ESRD Breast Cancer Mother [...] level: Not on file Occupational History Occupation: [employer] Comment: worked with fumes; wasn't in the [employer] Tobacco Use Smoking status: Former Current packs/day: [...] list as this cannot be edited in [employer]. Review of Systems: Constitutional ROS: No change in weight, No change in weakness, No change in fatigue and No fevers,sweats, or chills Nose ROS: No nasal stuffiness and No significant epistaxis Mouth/Throat ROS: No thrush or No sore throat Neck ROS: No lumps or masses, No swollen glands, No recent swelling in thyroid area and No significant pain in neck Pulmonary ROS:see HPI Cardiovascular ROS: see HPI Gastrointestinal ROS: No abdominal pain, No change in bowel habits, No significant change in appetite, No nausea, vomiting, diarrhea, or constipation and No dysphagia Skin/Integumentary ROS: No rash and No itching Neurologic ROS: No headaches and No seizures Psychiatric ROS: No depression, No anxiety and No psychosis Sleep:see HPI OBJECTIVE: PHYSICALEXAM I reviewed the most recent facilities vitals. General: alert, no change in dyspnea at rest from his baseline , frail Eye Exam: Conjunctiva are pink and non-injected, sclera clear Nose: no mucosal erythema, no mucosal edema, no purulent discharge Oropharynx: no exudate, no erythema, lips, buccal mucosa, and tongue normal and mucous membranes are moist Neck: supple, no adenopathy, non-tender, neck veins flat, trachea midline Heart: regular rate & rhythm, no murmurs and no gallops Lungs: normal respiratory rate and rhythm, no chest wall tenderness, lungsdistant BS with rhonchi audible which is baseline for pt Abdomen: abdomen soft, non-tender, normal bowel sounds and no masses or organomegaly Extremities: no edema, no clubbing, no cyanosis Neuro Exam: alert with fluent speech, no focal motor/sensory deficits Skin: skin color, texture, turgor are normal, no rashes or significant lesions ASSESSMENT: Acute on chronic respiratory failure with hypoxia (HCC) (Primary) Stable breathing currently Having good day with Therapy today Continue Advair 250.50mcg BID, Duonebs prn , Spiriva daily and prednisone taper Chronic diastolic heart failure (HCC) Stable no active CHF Continue Lasix 20mg daily and Aldactone 12.5mg daily COPD, group D, by GOLD 2017 classification (HCC) Stable breathing currently Having good day with Therapy today Continue Advair 250.50mcg BID, Duonebs prn , Spiriva daily and prednisone taper Type 2 diabetes mellitus with stage 3a chronic kidney disease, without long-term current use of insulin (HCC) Stable glucoses Continue Farxiga 10mg daily, metformin 500mg BID PLAN: Reviewed CBC, BMP, Lytes and Continue present medication(s):as ordered. Half-Way Home Treatment Given: as above Electronically signed by: Anamika Myers PA-C Over 35 minutes were spent in this visit more than half the time was spent counselling or coordinating care. documented in this encounter Plan of Treatment Upcoming Encounters Date Type Department Care Team (Late st Contact Info) Description 11/25/2023 5:30 PM EDT Anticoagulation Pharmacy Call Center [address] [place] [address] [facility], [facility] [address] [facility] [place] [address] 12/29/2023 10:20 AM EDT Office Visit Pulmonary Medicine, [facility] [address] [facility] [place] [address] Jack Desouza MD [address] [facility] [address] Health Maintenance Due Date Last Done Comments HbA1c 1946 Pneumococcal Vaccine: 65+ Years (1 of 2 - PCV) 1946 Depression Screening 1953 Albumin/Creatinine Ratio 1959 CKD PHOS USE SMARTSET 37937 1959 Diabetic Eye Exam 1959 Diabetic Foot Exam 1959 DTaP,Tdap,and Td Vaccines (1 - Tdap) 1960 Zoster Vaccines (1 of 2) 1991 *ADVANCE DIRECTIVE NOT ON FILE 05/13/2020 COVID-19 Vaccine ( season) 2023 10/12/2020, 09/14/2020 GFR 05/13/2024 11/11/2023, 10/16, 01/06/2022, Additional history exists O2 ASSESSMENT COMPLETED IN PAST YEAR FOR COPD 10/27/2024 10/28/2023 CKD HGB USE SMARTSET 09885 11/08/202411/08, 11/09/2023, 05/22/2023, Additional history exists Alpha-1 [...] chronic respiratory failure with hypoxia (HCC)- Primary Chronic diastolic heart failure (HCC) Chronic diastolic heart failure COPD, group D, by GOLD 2017 classification (HCC) Type 2 diabetes mellitus with stage 3a chronic kidney disease, without long-term current use of insulin (HCC) documented in this encounter Care Teams Heating And Air Conditioning Mechanic Relationship Specialty Start Date End Date Arun Alexandre MD [address] [place] [address] PCP - General Family Medicine 05/17/18 documented as of this encounter
--- OUTSIDE RECORDS SUMMARY | 2023-11-19 03:22 | External Medical Summary | Summary of Care ---
Author Name Unknown Organization [facility] Address [address] [place] [address] Phone [phone] Care Team Providers Care Register Clerk Name Role Phone Arun Alexandre MD Primary Care Provider [phone] Reason for Visit * Reason Onset Date Comments Skilled Visit 11/12/2023 Encounter Details Date Type Department Care Team (Latest Contact Info) Description 11/12/2023 7:00 AM EDT Alf Visit [facility] [address] [place] [address] Anamika Myers PA-C [address] [place] [address] Acute on chronic respiratory failure with hypoxia (HCC)*; Chronic diastolic heart failure (HCC); PAF (paroxysmal atrial fibrillation) ([facility]); Type 2 diabetes mellitus with stage 3a chronic kidney disease, without long-term current use of insulin ([facility]); Sleep-wake disorder Allergies Active Allergy Reactions Criticality Noted Date Comments Isosorbide Nitrate 05/07/2021 Headache Pollen Other (Please comment) 01/17/2014 Runny nose, itchy eyes, nasal congestion documented as of this encounter (statuses as of 11/12/2023) Medications Medication Sig Dispensed Refills Start Date End Date Status Multiple Vitamins-Minerals (PRESERVISION/LUTEIN) Capsule Take 2 Capsules by mouth in the morning. 0 Active oxygen GAS Use 2 L/min(Oxygen) as directed in the morning. Using 5 LPM continuous. 0 02/05/2016 Active Fluticasone-Salmetero l 250-50 MCG/DOSE Inhalation Aerosol Powder Breath Activated (Advair Diskus)Indications:CO PD, group D, by GOLD 2017 classification ([facility]) Inhale 1 Puff by mouth 2 times a day. 180 Each 3 05/16/2021 Active Montelukast Sodium 10 MG Oral Tablet (Singulair)Indication s:COPD, group D, by GOLD 2017 classification ([facility] [...] Oral Tablet (Coumadin)Indications :PAF (paroxysmal atrial fibrillation) ([facility]),Anticoagulation management encounter,Anticoagula nt long-term use Take 1 Tablet by mouth every evening. 30 Tablet 5 05/22/2023 Active Spironolactone 25 MG Oral Tablet (Aldactone) TAKE ONE-HALF TABLET BY MOUTH IN THE MORNING 45 Tablet 3 10/05/2023 Active Ipratropium [place] 0.02 % Inhalation Solution (Atrovent) Inhale 2.5 [...] mouth in the morning. 0 11/09/2023 Active Melatonin 3 MG Oral Tablet Take 1 Tablet by mouth at bedtime. 0 11/09/2023 Active Tiotropium [place] Monohydrate 18 MCG Inhalation Capsule (Spiriva HandiHaler) [...] mouth in the morning. 0 11/11/2023 Active documented as of this encounter (statuses as of 11/12/2023) Active Problems Problem Noted Date Diagnosed Date [...] as of this encounter (statuses as of 11/12/2023) Resolved Problems Problem Noted Date Diagnosed Date [...] as of this encounter (statuses as of 11/12/2023) Immunizations Name Administration Dates Next Due SARS-COV-2 [...] EDT Anticoagulation Pharmacy Call Center [phone] [facility] [place] [address] [facility], [facility] [address] [facility] [place] [address] 12/29/2023 10:20 AM EDT Office Visit Pulmonary Medicine, [facility] [address] [facility] [place] [address] Jack Desouza MD [address] [facility] [place] [address] Health Maintenance Due Date Last Done Comments HbA1c 1946 Pneumococcal Vaccine: 65+ Years (1 of 2 - PCV) 1946 Depression Screening 1953 Albumin/Creatinine Ratio 1959 CKD PHOS USE SMARTSET 87564 1959 Diabetic Eye Exam 1959 Diabetic Foot Exam 1959 DTaP,Tdap,and Td Vaccines (1 - Tdap) 1960 Zoster Vaccines (1 of 2) 1991 *ADVANCE DIRECTIVE NOT ON FILE 05/13/2020 COVID-19 Vaccine ( season) 2023 10/12/2020, 09/14/2020 GFR 05/13/2024 11/11/2023, 10/16, 01/06/2022, Additional history exists O2 ASSESSMENT COMPLETED IN PAST YEAR FOR COPD 10/27/2024 10/28/2023 CKD HGB USE SMARTSET 00975 11/08/202411/08, 11/09/2023, 05/22/2023, Additional history exists Alpha-1 [...] heart failure (HCC) Chronic diastolic heart failure PAF (paroxysmal atrial fibrillation) (HCC) Atrial fibrillation Type 2 diabetes mellitus with stage 3a chronic kidney disease, without long-term current use of insulin (HCC) Sleep-wake disorder Circadian rhythm sleep disorder, unspecified documented in this encounter Care Teams Register Clerk Relationship Specialty Start Date End Date Arun Alexandre MD [address] [place] [address] PCP - General Family Medicine 05/17/18 documented as of this encounter
--- OUTSIDE RECORDS SUMMARY | 2023-11-19 03:22 | External Medical Summary ---
Author Name Unknown Address Unknown Organization [facility] [address] [place] [address] Laboratory Report Ordering Provider Test Date Status YULISSA GERARD 11/11/2023 05:59:00 Final Warfarin Therapy
INR: 2 .0-3.0 conventional anticoagulation
INR: 2.5- 3.5 high intensity anticoagulation Observation Date Value Abnormality Reference (Units ) Status PT 11/11/2023 05:59:00 24.2 Above high normal 11 .6-15.2 (seconds) Final INR 11/11/2023 05:59:00 2.1 Above high normal 0. 8-1.2 Final Performing Location [facility] [address] [place] [address]
--- OUTSIDE RECORDS SUMMARY | 2023-11-19 03:22 | External Medical Summary | Summary of Care ---
Author Name Unknown Organization [facility] Address [address] [place] [address] Phone [phone] Care Team Providers Care Country Sales Manager Name Role Phone Arun Alexandre MD Primary Care Provider [phone] Reason for Visit * Reason Onset Date Comments Senior Care Visit - Admission 11/11/2023 Encounter Details Date Type Department Care Team (Latest Contact Info) Description 11/11/2023 9:30 AM EDT Senior Care Visit [address] [place] [address] Krista Perez MD [address] [place] [address] [place] [phone] Acute on chronic respiratory failure with hypoxia ([facility]; COPD, group D, by GOLD 2017 classification ([facility]); Chronic diastolic heart failure ([facility]); PHT (pulmonary hypertension) ([facility]); ILD (interstitial lung disease) ([facility]); Chronic respiratory failure with hypoxia ([facility]); Type 2 diabetes mellitus with stage 3a chronic kidney disease, without long-term current use of insulin ([facility]); Dyslipidemia, goal LDL below 70; PAF (paroxysmal atrial fibrillation) ([facility]); Anticoagulant long-term use; HTN, goal below 140/90 Allergies Active Allergy Reactions Criticality Noted Date Comments Isosorbide Nitrate 05/07/2021 Headache Pollen Other (Please comment) 01/17/2014 Runny nose, itchy eyes, nasal congestion documented as of this encounter (statuses as of 11/11/2023) Medications Medication Sig Dispensed Refills Start Date End Date Status Multiple Vitamins-Minerals (PRESERVISION/LUTEI N) Capsule Take 2 Capsules by mouth in the morning. 0 Active oxygen GAS Use 2 L/min(Oxygen) as directed in the morning. Using 5 LPM continuous. 0 02/05/2016 Active Fluticasone-Salmete rol 250-50 MCG/DOSE Inhalation Aerosol Powder Breath Activated (Advair Diskus)Indications: COPD, group D, by GOLD 2017 classification ([facility]) Inhale 1 Puff by mouth 2 times a day. 180 Each 3 05/16/2021 Active Montelukast Sodium 10 MG Oral Tablet (Singulair)Indicati ons:COPD, group D, by GOLD 2017 classification ([facility]) Take 1 Tab by [...] Oral Tablet (Coumadin)Indicatio ns:PAF (paroxysmal atrial fibrillation) ([facility]),Anticoagulati on management encounter,Anticoagu lant long-term use Take 1 Tablet by mouth every evening. 30 Tablet 5 05/22/2023 Active Spironolactone 25 MG Oral Tablet (Aldactone) TAKE ONE-HALF TABLET BY MOUTH IN THE MORNING 45 Tablet 3 10/05/2023 Active Ipratropium Dilworth 0.02 % Inhalation Solution (Atrovent) Inhale 2.5 [...] food, as instructed.. 30 Tablet 2 10/28/2023 01/26/20 24 Active Centrum Silver Oral Tablet Take 1 Tablet by mouth in the morning. 0 11/09/2023 Active Atorvastatin Calcium 10 MG Oral Tablet (Lipitor)Indication s:Dyslipidemia, goal LDL below 70 Take 1 Tablet by mouth in the morning. 0 11/09/2023 Active Melatonin 3 MG Oral Tablet Take 1 Tablet by mouth at bedtime. 0 11/09/2023 Active Tiotropium Dilworth Monohydrate 18 MCG Inhalation Capsule (Spiriva HandiHaler) [...] mouth in the morning. 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, R dorsal hand, R scalp 2018, L dorsal wrist 06/07), basal cell carcinoma (L forearm, L preauricular region 09/2019) AK (actinic keratosis) 05/24/2014 Overview: Efudex 04/2014 documented as of this encounter (statuses as of 11/11/2023) Resolved Problems Problem Noted Date Diagnosed Date Resolved Date Encounter for long-term (cur rent) use of other medications 05/22/2023 11/09/2023 Anticoagulation management encounter 05/22/2023 11/09/2023 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 denominational 07/01/2019 09/28/2019 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 01/26/2019 09/28/2019 COPD, severe 06/07/2018 02/28/2021 Overview: Per COPD GOLD Classification Family history of ischemic heart disease 06/07/2018 11/09/2023 SCC (squamous cell carcinoma), face 05/03/2014 06/13/2015 Overview: L lateral forehead documented as of this encounter (statuses as of 11/11/2023) Immunizations Name Administration Dates Next Due SARS-COV-2 [...] as of this encounter Progress Notes * Krista Perez MD - 11/11/2023 1:47 PM EDT ADMISSION HISTORY and PHYSICAL TRANSITION EVENT: Type: SNF admission Date: November 05 Code Status: No Code Name: Dru Galvan Date of : 1940 This note pertains to care provided at [facility]. Please see facility medical record for original note. This note is not to be edited or addended in [facility]. Editing or addending needs to occur in the facilities medical record. S: Dru Galvan had been admitted to [facility] from [facility] for PT and OT. Recently admitted to [facility] on 10/29/23 because of acute on chronic respiratory failure from COPD and CHF and was transferred here and admitted on 11/06/2023. Patient of Dr. Alexandre with PMH of COPD dependent on oxygen, diastolic CHF, PAF on coumadin, type 2 diabetes mellitus with stage 3a CKD, esophageal dysmotility with h/o aspiration pneumonia, pulmonary hypertension, interstitial lung disease, CAD, and left upperlobe pulmonary nodule who presented to the ED with worsening shortness of breath x 1 week and oxygen saturation of 74% on 5L NC on the morning of admission. [facility] and was hospitalized at [facility] twice prior to that. Patient's WBC was 13.67 in the ED. He had JOSEFINA with creatinine of 1.92. Respiratory Biofire was negative. BNP was 768. CXR showed cardiomegaly and advanced emphysema without radiographic evidence of congestive failure and small pleural effusions with bibasilar consolidation and an irregular opacity in the left upper lobe likely unchanged. EKG showed atrial fibrillation with RVR at 119. Patient was admitted and placed on BiPAP. He was given Lasix 40 mg IV in the ED. Echocardiogram wasdone, which showed EF 55-59%, right ventricle dilation, mild dilation of right atrium, and pulmonary artery systolic pressure mildly elevated at 44 mmHg. It showed aortic valve sclerosis without stenosis. Respiratory failure felt to be more due to COPD. His home Lasix 20 mg daily as resumed (had been taking it as needed). Patient was continued on Zithromax, oxygen, BiPAP, LABA/LAMA/ICS for COPD. He was started on long prednisone taper at 60 mg daily. Sugars were managed with insulin. He was discharged on his home metformin and Farxiga. 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 No other medication changes were made. He follows with pulmonary at [facility] (Dr. Desouza). Follows with Dr. Lombardo for cardiology follow-up. Patient is now admitted for PT/OT with plans to return home with his . He remains on oxygen at 5L continuously. He has been dropping into the 70s with exertion and improves with rest. Patient states he has dyspnea with any movement, but this is about back to his baseline. No fever or chills. States his appetite is Ok. No pain. No chest pain. 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.9 COPD, group D, by GOLD 2017 classification ([facility]) J44.9 PHT (pulmonary hypertension) ([facility]) I27.20 ILD (interstitial lung disease) ([facility]) J84.9 Chronic respiratory failure with hypoxia ([facility]) J96.11 Chronic diastolic heart failure ([facility]) I50.32 Vitamin B deficiency E53.9 Vitamin D deficiency E55.9 Screening for prostate cancer Z12.5 PAF (paroxysmal atrial fibrillation) ([facility]) I48.0 Need for prophylactic vaccination and inoculation against influenza Z23 Anticoagulant long-term use Z79.01 Type 2 diabetes mellitus with stage 3a chronic kidney disease, without long-term current use of insulin ([facility]) E11.22, N18.31 Esophageal dysmotility K22.4 History of 2019 novel coronavirus disease (COVID-19) Z86.16 DNR (do not resuscitate) Z66 History of tobacco use Z87.891 Left upper lobe pulmonary nodule R91.1 Current Outpatient Medications Medication Sig Dispense Refill Furosemide 20 MG Oral Tablet (Lasix) Take 1 Tablet by mouth in the morning. Multiple Vitamins-Minerals (PRESERVISION/LUTEIN) Capsule Take 2 Capsules by mouth in the morning. oxygen GAS Use 2 L/min(Oxygen) as directed in the morning. Using 5 LPM continuous. Fluticasone-Salmeterol 250-50 MCG/DOSE Inhalation Aerosol Powder Breath Activated (Advair Diskus) Inhale 1 Puff by mouth 2 times a day. 180 Each 3 Montelukast Sodium 10 MG Oral Tablet (Singulair) Take 1 Tab by mouth every evening. 90 Tab 3 guaiFENesin ER 600 MG Oral Tablet Extended Release 12 Hour Take 1 Tablet by mouth in the morning. D3 50 MCG (2000 UT) Oral Tablet (Cholecalciferol) Take 1 Tablet by mouth in the morning. 25 mcg. (Patient not taking: Reported on 10/27/2023) metFORMIN HCl 500 MG Oral Tablet (Glucophage) Take 1 Tablet by mouth 2 times a day with morning andevening meals. Metoprolol Succinate ER 50 MG Oral Tablet Extended Release 24 Hour (Toprol XL) Take 1 Tablet by mouth in the morning. 135 Tablet 3 Warfarin Sodium 5 MG Oral Tablet (Coumadin) Take 1 Tablet by mouth every evening. 30 Tablet 5 Spironolactone 25 MG Oral Tablet (Aldactone) TAKE ONE-HALF TABLET BY MOUTH IN THE MORNING 45 Tablet3 Ipratropium Dilworth 0.02 % Inhalation Solution (Atrovent) Inhale 2.5 mL via nebulizer every 6 hoursas needed for Wheezing. 300 mL 0 Albuterol Sulfate 0.63 MG/3ML Inhalation Nebulization Solution (Accuneb) Inhale 1 Vial via nebulizer every 6 hours as needed for Wheezing or Shortness of Breath. 360 mL 0 predniSONE 5 MG Oral Tablet (Deltasone) Take 1 Tablet by mouth every morning with food, as instructed.. 30 Tablet 2 Centrum Silver Oral Tablet Take 1 Tablet by mouth in the morning. Atorvastatin Calcium 10 MG Oral Tablet (Lipitor) Take 1 Tablet by mouth in the morning. Melatonin 3 MG Oral Tablet Take 1 Tablet by mouth at bedtime. Tiotropium Dilworth Monohydrate 18 MCG Inhalation Capsule (Spiriva HandiHaler) Inhale 1 Capsule by mouth in the morning. For inhaler only, do not swallow.. Dapagliflozin Propanediol 10 MG Oral Tablet (Farxiga) Take 1 Tablet by mouth in the morning. hydrOXYzine HCl 10 MG Oral Tablet (Atarax) Take 1 Tablet by mouth every 8 hours as needed for Anxiety. traZODone HCl 50 MG Oral Tablet (Desyrel) Take 1 Tablet by mouth at bedtime as needed for Sleep. No current facility-administered medications for this visit. Review of patient's allergies indicates: Allergen Reactions Imdur [Isosorbide Nitrate] Headache Pollen Other (Please comment) Runny nose, itchy eyes, nasal congestion Social History Tobacco Use Smoking status: Former Current packs/day: 0.00 Types: Cigarettes Quit date: 1978 Years since quittin.2 Smokeless tobacco: Current Types: Snuff Tobacco comments: A can a day Substance Use Topics Alcohol use: No Vaping/E-Cigarette Use Vaping/E-Cigarette Use Never User Vaping/E-Cigarette Substances Vaping/E-Cigarette Devices No past surgical history on file. Family History Problem Relation Age of Onset Heart Disorder Grandfather (Maternal) 80 [facility] Renal Hx Mother ESRD Breast Cancer Mother Other (Unknown) Father Cancer Sister (Half) neck Lung cancer Brother (Half) Family Status Relation Status MGFA (Not Specified) Mo Fa (Not Specified) HSIS Alive HSIS Alive HSIS Alive HBRO Results for orders placed or performed in visit on 11/11/23 COMPREHENSIVE METABOLIC PANEL Result Value Ref Range BUN 30 (H) 6 - 20 mg/dL Creatinine 1.2 0.6 - 1.2 mg/dL Estimated Glomerular Filtration Rate 59 (L) >=60 mL/min Sodium 141 135 - 146 mmol/L Potassium 4.5 3.5 - 5.1 mmol/L Chloride 106 98 - 107 mmol/L CO2 24 22 - 32 mmol/L Anion Gap 11 7 - 15 mmol/L Glucose 105 70 - 120 mg/dL Albumin 3.3 (L) 3.8 - 5.0 g/dL AST 15 10 - 50 U/L Alkaline Phosphatase 54 35 - 130 U/L Bilirubin, Total 0.4 <=1.2 mg/dL Calcium 9.0 8.4 - 10.2 mg/dL Protein 5.1 (L) 6.0 - 8.3 g/dL ALT 54 (H) 10 - 50 U/L PT INR Result Value Ref Range Prothrombin Time 24.2 (H) 11.6 - 15.2 seconds INR 2.1 (H) 0.8 - 1.2 CBC Results: Results for orders placed or [...] K/uL MPV 12.1 6.6 - 11.1 fL Review of Systems: Constitutional ROS: No change in weight, No fevers, sweats, or chills, and +generalized weakness Eye ROS: No recent significant change in vision and No eye pain, redness, discharge Ear ROS: No ear pain, No drainage, No tinnitus or vertigo, and No recent change in hearing Nose ROS: No history of frequent colds or sinusitis, No nasal stuffiness, No history of Hay Fever, and No significant epistaxis Mouth/Throat ROS: No bleeding gums, No thrush, or No sore throat Pulmonary ROS: +as per HPI Cardiovascular ROS: No chest pain, No orthopnea, No paroxysmal nocturnal dyspnea, No palpitations, No syncope, and +PAF on Coumadin, +chronic SOB and DEUTSCH Gastrointestinal ROS: No abdominal pain, No change in bowel habits, No significant heartburn, No significant change in appetite, No nausea, vomiting, diarrhea, or constipation, No hematemesis, No blood in stools or black tarry stools, No abdominal bloating or early satiety, and +esophageal dysmotility Genito-Urinary Male ROS: No dysuria and No frequency Musculoskeletal/Extremities ROS: No pain, redness or swelling on the joints Hematologic/Lymphatic ROS: No abnormal bleeding, No chills, No bruising, No weight loss, and +anticoagulation with coumadin Skin/Integumentary ROS: No rash Neurologic ROS: No headaches and No seizures Endocrine ROS: No heat intolerance, No cold intolerance, No thyroid trouble, and +type 2 diabetes Psychiatric ROS: No depression, No anxiety, and No psychosis ADL skills: dependent Ambulates with walker OBJECTIVE: PHYSICAL EXAM: I reviewed the most recent facilities vitals. Refer to vital signs flowsheet in halfway chart.General: alert, well nourished, well developed, and respirations mildly labored with purse lippedbreathing Head: Normocephalic, No masses, lesions, tenderness or abnormalities Eye Exam: PERRLA, extraocular movements intact, conjunctiva are pink and non- injected, sclera clear Ears: External ears normal Nose: no mucosal erythema, no mucosal edema, no purulent discharge Oropharynx: no exudate, no erythema, lips, buccal mucosa, and tongue normal, and mucous membranes are moist Neck: supple, no adenopathy, no bruits Heart: no gallops and irregularly irregular Lungs: chest symmetric with normal AP diameter, no chest deformities noted, no chest wall tenderness, coarse sounds heard, decreased breath sounds Abdomen: abdomen soft, non-tender, normal bowel sounds, and no masses or organomegaly Extremities: no edema, no clubbing, no cyanosis ASSESSMENT: Acute on chronic respiratory failure with hypoxia (HCC) (Primary)--several recent admission with COPD/CHF. Continue oxygen 5L continuously. COPD, group D, by GOLD 2017 classification (HCC)--severe. Continue oxygen, Advir, Duoneb, prednisone (will convert to 10 mg daily at end of taper), and Spiriva. Follows with pulmonary. Chronic diastolic heart failure (HCC)--continue furosemide 20 mg daily and spironolactone 12.5 mg daily. PHT (pulmonary hypertension) (HCC)--continue oxygen. ILD (interstitial lung disease) ([facility])--continue oxygen Chronic respiratory failure with hypoxia (HCC)--continue oxygen. Type 2 diabetes mellitus with stage 3a chronic kidney disease, without long-term current use of insulin (HCC)--continue Farxiga 10 mg daily and metformin 500 mg twice daily. Last A1C was 7.3. Dyslipidemia, goal LDL below 70--continue atorvastatin 10 mg daily. PAF (paroxysmal atrial fibrillation) ([facility])--rate controlled with metoprolol succinate 50 mg daily. Continue Coumadin. Anticoagulant long-term use HTN, goal below 140/90--controlled with metoprolol succinate 50 mg daily. PLAN: 1. Continue present medication(s): 2. Admission orders, medications, labs, hospital records and care plan reviewed. 3. Physical Therapy, Occupational Therapy, and Speech Therapy ordered. 4. Care plan reviewed. 5. Advance Directives were discussed: The patient is a DNR 6. Custodial Home Treatment Given: Steroids Oral Long prednisone taper Electronically signed by: Krista Perez MD I spent a total of 51 minutes coordinating, documenting, and providing care for this patient excluding time spent in the performance of separately billed services or time spent by another provider/QHP. documented in this encounter Plan of Treatment Upcoming Encounters Date Type Department Care Team (Latest Contact Info) Description 11/11/2023 5:30 PM EDT Anticoagulation Pharmacy Call Center [facility] [address] [facility] [place] [address] [facility] [address] [facility] [place] [address] PAF (paroxysmal atrial fibrillation) ([facility])*; Anticoagulant long-term use 12/29/2023 10:20 AM EDT Office Visit Pulmonary Medicine, [facility] [address] [facility] [place] [address] Jack Desouza MD [address] [facility] [place] [id number] Health Maintenance Due Date Last Done Comments HbA1c 1946 Pneumococcal Vaccine: 65+ Years (1 of 2 - PCV) 1946 Depression Screening 1953 Albumin/Creatinine Ratio 1959 CKD PHOS USE SMARTSET 43681 1959 Diabetic Eye Exam 1959 Diabetic Foot Exam 1959 DTaP,Tdap,and Td Vaccines (1 - Tdap) 1960 Zoster Vaccines (1 of 2) 1991 *ADVANCE DIRECTIVE NOT ON FILE 05/13/2020 COVID-19 Vaccine ( - 2022- season) 2023 10/12/2020, 09/14/2020 GFR 05/13/2024 11/11/2023, 10/16, 01/06/2022, Additional history exists O2 ASSESSMENT COMPLETED IN PAST YEAR FOR COPD 10/27/2024 10/28/2023 CKD HGB USE SMARTSET 38605 11/08/202411/08, 11/09/2023, 05/22/2023, Additional history exists Alpha-1 [...] (paroxysmal atrial fibrillation) (HCC)- Primary Atrial fibrillation Anticoagulant long-term use Long-term (current) use of 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s Acute on chronic respiratory failure with hypoxia (HCC)- Primary COPD, group D, by GOLD 2017 classification (HCC) Chronic diastolic heart failure (HCC) Chronic diastolic heart failure PHT (pulmonary hypertension) (HCC) Other chronic pulmonary heart diseases ILD (interstitial lung disease) (HCC) Postinflammatory pulmonary fibrosis Chronic respiratory failure with hypoxia (HCC) Chronic respiratory failure Type 2 diabetes mellitus with stage 3a chronic kidney disease, without long-term current use of insulin (HCC) Dyslipidemia, goal LDL below 70 Other and unspecified hyperlipidemia PAF (paroxysmal atrial fibrillation) (HCC) Atrial fibrillation Anticoagulant long-term use Long-term (current) use of 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s HTN, goal below 140/90 Unspecified essential hypertension documented in this encounter Care Teams Country Sales Manager Relationship Specialty Start Date End Date Aurn Alexandre MD [address] [place] [address] PCP - General Family Medicine 05/17/18 documented as of this encounter
--- OUTSIDE RECORDS SUMMARY | 2023-11-19 03:22 | External Medical Summary | Summary of Care ---
Author Name Unknown Organization [facility] Address [address] [place] [address] Phone [phone] Care Team Providers Care Colorectal Surgeon Name Role Phone Arun Alexandre MD Primary Care Provider [phone] Reason for Visit * Reason Onset Date Comments Skilled Visit 11/17/2023 Encounter Details Date Type Department Care Team (Latest Contact Info) Description 11/17/2023 7:30 AM EDT Ret[facility] Visit [facility] [address] [place] [address] Jazz Tomlinson PA-C [address] [place] [address] Nocturia*; Urinary hesitancy; Chronic respiratory failure with hypoxia ([facility]); COPD, group D, by GOLD 2017 classification ([facility]) Allergies Active Allergy Reactions Criticality Noted Date Comments Isosorbide Nitrate 05/07/2021 Headache Pollen Other (Please comment) 01/17/2014 Runny nose, itchy eyes, nasal congestion documented as of this encounter (statuses as of 11/17/2023) Medications Medication Sig Dispensed Refills Start Date End Date Status Multiple Vitamins-Minerals (PRESERVISION/LUTEI N) Capsule Take 2 Capsules by mouth in the morning. 0 Active oxygen GAS Use 2 L/min(Oxygen) as directed in the morning. Using 5 LPM continuous. 0 02/05/2016 Active Fluticasone-Salmete rol 250-50 MCG/DOSE Inhalation Aerosol Powder Breath Activated (Advair Diskus)Indications: COPD, group D, by GOLD 2017 classification ([facility]) Inhale 1 Puff by mouth 2 times a day. 180 Each 3 05/16/2021 Active Montelukast Sodium 10 MG Oral Tablet (Singulair)Indicati ons:COPD, group D, by GOLD 2017 classification ([facility]) Take 1 Tab by mouth every evening. [...] Oral Tablet (Coumadin)Indicatio ns:PAF (paroxysmal atrial fibrillation) ([facility]),Anticoagulati on management encounter,Anticoagu lant long-term use Take 1 Tablet by mouth every evening. 30 Tablet 5 05/22/2023 Active Spironolactone 25 MG Oral Tablet (Aldactone) TAKE ONE-HALF TABLET BY MOUTH IN THE MORNING 45 Tablet 3 10/05/2023 Active Ipratropium [place] 0.02 % Inhalation Solution (Atrovent) Inhale 2.5 [...] in the morning. 0 11/09/2023 Active Tiotropium [place] Monohydrate 18 MCG Inhalation Capsule (Spiriva HandiHaler) [...] by mouth every evening. 0 11/17/2023 Active Tamsulosin HCl 0.4 MG Oral Capsule (Flomax) Take 1 Capsule by mouth in the morning. 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, R dorsal hand, R scalp 2018, L dorsal wrist 06/07), basal cell carcinoma (L forearm, L preauricular region 09/2019) AK (actinic keratosis) 05/24/2014 Overview: Efudex 04/2014 documented as of this encounter (statuses as of 11/17/2023) Resolved Problems Problem Noted Date Diagnosed Date Resolved Date Encounter for long-term (cur rent) use of other medications 05/22/2023 11/09/2023 Anticoagulation management encounter 05/22/2023 11/09/2023 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 07/01/2019 09/28/2019 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 01/26/2019 09/28/2019 COPD, severe 06/07/2018 02/28/2021 Overview: Per COPD GOLD Classification Family history of ischemic heart disease 06/07/2018 11/09/2023 SCC (squamous cell carcinoma), face 05/03/2014 06/13/2015 Overview: L lateral forehead documented as of this encounter (statuses as of 11/17/2023) Immunizations Name Administration Dates Next Due SARS-COV-2 [...] as of this encounter Progress Notes * Jazz Tomlinson PA-C - 11/17/2023 2:20 PM EDT Name: Dru Galvan Date of :1940 TRANSITION EVENT: Type: Skilled visit Date: November 16 Code Status: No Code This note pertains to care provided at [facility]. Please see facility medical record for original note. This note is not to be edited or addended in [employer]. Editing or addending needs to occur in the facilities medical record. Subjective: Dru Galvan is a 83 year old male. Patient being seen for skilled visit and another issue Chief Complaint Patient presents with Skilled Visit HPI: Pt here for rehabiltation following [facility] admission for acute on chronic respiratory failure, COPD and acute on chronic CHF. Pt's breathing has remained stable since admission to SNF. Working hard with Therapy to gain endurance. Taking all of his pulmonary medications as directed. Vital signs stable. Weight stable. Eating and drinking ok. Pt c/o nocturia every night which is affecting his sleep. He falls asleep well now with Melatonin and Trazodone HS routinely but wakes up at night needing to void and then can't fall back asleep. Having daytime somnolence due to above. Pt states he has urinary hesitancy, weak stream sensation of incomplete bladder emptying and urgency. No dysuria, gross hematuria. No chills, fever or backache. Ptis very frustrated over this symptoms. CBC Results: Results for orders placed or [...] COPD, group D, by GOLD 2017 classification ([facility]) J44.9 PHT (pulmonary hypertension) ([facility]) I27.20 ILD (interstitial lung disease) ([facility]) J84.9 Chronic respiratory failure with hypoxia ([facility]) J96.11 Chronic diastolic heart failure ([facility]) I50.32 Vitamin B deficiency E53.9 Vitamin D deficiency E55.9 Screening for prostate cancer Z12.5 PAF (paroxysmal atrial fibrillation) ([facility]) I48.0 Need for prophylactic vaccination and inoculation against influenza Z23 Anticoagulant long-term use Z79.01 Type 2 diabetes mellitus with stage 3a chronic kidney disease, without long-term current use of insulin ([facility]) E11.22, N18.31 Esophageal dysmotility K22.4 History of [...] of Onset Heart Disorder Grandfather (Maternal) 80 [place] Renal Hx Mother ESRD Breast Cancer Mother [...] level: Not on file Occupational History Occupation: [employer] Comment: worked with fumes; wasn't in the [employer] Tobacco Use Smoking status: Former Current packs/day: [...] list as this cannot be edited in [employer]. Review of Systems: Constitutional ROS: No change [...] see HPI Cardiovascular ROS: No chest pain, No shortness of breath, No edema, No palpitations and No syncope Gastrointestinal ROS: No abdominal pain, No change in bowel habits, No significant change in appetite, No nausea, vomiting, diarrhea, or constipation and No dysphagia Skin/Integumentary ROS: No rash and No itching Neurologic ROS: No headaches and No seizures Psychiatric ROS: No depression, No anxiety and No psychosis Sleep: see HPI OBJECTIVE: PHYSICALEXAM: I reviewed the most recent facilities vitals. General: alert, no distress, well nourished and well developed Eye Exam: [...] and rhythm, no chest wall tenderness, lungs distant BS. Rhonchi unchanged Abdomen: abdomen soft, non-tender, normal bowel sounds and no masses or organomegaly Extremities: no edema, no clubbing, no cyanosis Rectal : deferred at this time Skin: skin color, texture, turgor are normal, no rashes or significant lesions ASSESSMENT: Nocturia (Primary) Most likely due to BPH Discussed Rx with pt Will begin Flomax 0.4mg Q evening Will follow closely Urinary hesitancy Most likely due to BPH Discussed Rx with pt Will begin Flomax 0.4mg Q evening Will follow closely Chronic respiratory failure with hypoxia (HCC) Stable breathing Continue O2 as directed COPD, group D, by GOLD 2017 classification (HCC) Stable breathing Continue Albuterol prn as directed, Advair 250/50mcg BID ,Spiriva daily , Atrovent Q six hours prn,Singulair 10mg daily and prednisone taper PLAN: Reviewed CBC, BMP, Lytes and Continue present medication(s):as ordered. Jail Home Treatment Given: as above Electronically signed by: Jazz Tomlinson PA-C Over 35 minutes were spent in this visit more than half the time was spent counselling or coordinating care. ADDENDUM: I WAS CALLED TO REASSESS PT FOR INCREASED DYSPNEA, WHEEZING AND HYPOXIA IN THE MID TO UPPER 70'S% WITH JUST DOING SOME LOWER BODY EXERCISES WITH THERAPY. THERAPY WAS STOPPED. PT WAS GIVEN DUONEB RX AND O2 INCREASED TO 7 LITERS. HIS O2 SATURATION RETURNED TO 86%. HE STATED HE WAS LESS DYSPNEIC AND LOOKED IN LESS DISTRESS. VITAL SIGNS STABLE. NO CHEST PAINS. O: WM, ALERT, LESS RESPIRATORY DISTRESS COR: IRREG IRREG WITH NO GALLOP LUNGS: SOME RHONCHI AUDIBLE. DISTANT BS A: ACUTE ON CHRONIC RESP FAILURE RESPONDING WELL TO ABOVE RX. PT HIS USUAL BASELINE CURRENTLY P: CONTINUE CURRENT RX. documented in this encounter Miscellaneous Notes * Addendum Note - Jazz Tomlinson PA-C - 11/17/2023 3:25 PM EDTAddended by: JAZZ TOMLINSON on: 11/17/2023 03:25 PM Modules accepted: Level of Service documented in this encounter Plan of Treatment Upcoming Encounters Date Type Department Care Team (Late st Contact Info) Description 11/25/2023 5:30 PM EDT Anticoagulation Pharmacy Call Center [address] [place] [address] [facility] 58 60 [facility] [place] [address] 12/29/2023 10:20 AM EDT Office Visit Pulmonary Medicine, [address] [place] [address] Jack Desouza MD [address] [place] [address] Health Maintenance Due Date Last Done Comments HbA1c 1946 Pneumococcal Vaccine: 65+ Years (1 of 2 - PCV) 1946 Depression Screening 1953 Albumin/Creatinine Ratio 1959 CKD PHOS USE SMARTSET 66867 1959 Diabetic Eye Exam 1959 Diabetic Foot Exam 1959 DTaP,Tdap,and Td Vaccines (1 - Tdap) 1960 Zoster Vaccines (1 of 2) 1991 *ADVANCE DIRECTIVE NOT ON FILE 05/13/2020 COVID-19 Vaccine (3 - season) 2023 10/12/2020, 09/14/2020 GFR 05/13/2024 11/11/2023, 10/16, 01/06/2022, Additional history exists O2 ASSESSMENT COMPLETED IN PAST YEAR FOR COPD 10/27/2024 10/28/2023 CKD HGB USE SMARTSET 13443 11/08/202411/08, 11/09/2023, 05/22/2023, Additional history exists Alpha-1 [...] as of this encounter Visit Diagnoses Diagnosis Nocturia- Primary Urinary hesitancy Chronic respiratory failure with hypoxia (HCC) Chronic respiratory failure COPD, group D, by GOLD 2017 classification (HCC) documented in this encounter Care Teams Colorectal Surgeon Relationship Specialty Start Date End Date Arun Alexandre MD [address] [place] [address] PCP - General Family Medicine 05/17/18 documented as of this encounter
--- OUTSIDE RECORDS SUMMARY | 2023-11-19 03:22 | External Medical Summary | Summary of Care ---
Author Name Unknown Organization [facility] Address [address] [place] [address] Phone [phone] Care Team Providers Care Straw Boss Name Role Phone Arun Alexandre MD Primary Care Provider [phone] Encounter Details Date Type Department Care Team (Late st Contact Info) Description 11/11/2023 Telephone Pharmacy, [address] [place] [address] [facility] [address] [place], [place] [id number] Allergies Active Allergy Reactions Criticality Noted Date [...] PD, group D, by GOLD 2017 classification ([facility]) Inhale 1 Puff by mouth 2 times a day. 180 Each 3 05/16/2021 Active Montelukast Sodium 10 MG Oral Tablet (Singulair)Indication s:COPD, group D, by GOLD 2017 classification ([facility]) Take 1 Tab by mouth [...] Oral Tablet (Coumadin)Indications :PAF (paroxysmal atrial fibrillation) ([facility]),Anticoagulation management encounter,Anticoagula nt long-term use Take 1 Tablet by mouth every evening. 30 Tablet 5 05/22/2023 Active Spironolactone 25 MG Oral Tablet (Aldactone) TAKE ONE-HALF TABLET BY MOUTH IN THE MORNING 45 Tablet 3 10/05/2023 Active Ipratropium [place] 0.02 % Inhalation Solution (Atrovent) Inhale 2.5 [...] mouth at bedtime. 0 11/09/2023 Active Tiotropium [place] Monohydrate 18 MCG Inhalation Capsule (Spiriva HandiHaler) [...] squamous cell carcinoma (L lateral forehead, L taoism 07/05), squamous cell carcinoma in situ (L [...] cell carcinoma of s kin of left taoism 07/01/2019 09/28/2019 Squamous cell carcinoma in s [...] Notes * Telephone Encounter - Yanique Mccarthy RPh - 11/11/2023 2:38 PM EDT Per chart review patient currently at [facility]. [facility] managing anticoagulation at this time. Will remove from [facility] clinic roster. Yanique Mccarthy RPh, PharmD Clinical Pharmacist - Psych Np Medication Therapy Disease Management [facility] 11/11/2023, 2:39 PM [phone] documented in this encounter Plan of Treatment Upcoming Encounters Date Type Department Care Team (Latest Contact Info) Description 11/11/2023 5:30 PM EDT Anticoagulation Pharmacy Call Center [phone] [place] [address] [facility], [facility] 58 60 [facility] [place] [address] PAF (paroxysmal atrial fibrillation) ([facility])*; Anticoagulant long-term use 12/29/2023 10:20 AM EDT Office Visit Pulmonary Medicine, [facility] [address] [facility] [place] [address] Jack Desouza MD [address] [place] [id number] Health Maintenance Due Date Last Done Comments HbA1c 1946 Pneumococcal Vaccine: 65+ Years (1 of 2 - PCV) 1946 Depression Screening 1953 Albumin/Creatinine Ratio 1959 CKD PHOS USE SMARTSET 58480 1959 Diabetic Eye Exam 1959 Diabetic Foot Exam 1959 DTaP,Tdap,and Td Vaccines (1 - Tdap) 1960 Zoster Vaccines (1 of 2) 1991 *ADVANCE DIRECTIVE NOT ON FILE 05/13/2020 COVID-19 Vaccine ( season) 2023 10/12/2020, 09/14/2020 GFR 05/13/2024 11/11/2023, 10/16, 01/06/2022, Additional history exists O2 ASSESSMENT COMPLETED IN PAST YEAR FOR COPD 10/27/2024 10/28/2023 CKD HGB USE SMARTSET 04600 11/08/202411/08, 11/09/2023, 05/22/2023, Additional history exists Alpha-1 [...] long-term use Long-term (current) use of 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s PAF (paroxysmal atrial fibrillation) (HCC)- Primary Atrial fibrillation Anticoagulant long-term use Long-term (current) use of 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s documented in this encounter Care Teams Straw Boss Relationship Specialty Start Date End Date Arun Alexandre MD [address] [place] [address] PCP - General Family Medicine 05/17/18 documented as of this encounter
--- OUTSIDE RECORDS SUMMARY | 2023-11-19 03:22 | External Medical Summary ---
Author Name Unknown Address Unknown Organization K01:[facility] [address] [place] [address] Laboratory Report Ordering Provider Test Date Status YULISSA GERARD 11/11/2023 05:59:00 Final Observation Date Value Abnormality Reference (Units ) Status Magnesium 11/11/2023 05:59:00 2.4 1.5-2.6 (m g/dL) Final Performing Location [facility] [address] [place] [address]
--- OUTSIDE RECORDS SUMMARY | 2023-11-19 03:22 | External Medical Summary | Summary of Care ---
Author Name Unknown Organization [facility] Address [address] [place] [address] Phone [phone] Care Team Providers Care Department Supervisor Name Role Phone Arun Alexandre MD Primary Care Provider [phone] Reason for Visit * Reason Comments Dosage Adjustment Via Phone (anticoag Cl inic) Encounter Details Date Type Department Care Team (Latest Contact Info) Description 11/11/2023 5:30 PM EDT Anticoagulation Pharmacy Call Center [address] [place] [address] [facility] [address] [place] [address] PAF (paroxysmal atrial fibrillation) ([facility])*; Anticoagulant long-term use Allergies Active Allergy Reactions [...] D, by GOLD 2017 classification ([facility]) Inhale 1 Puff by mouth 2 times a day. 180 Each 3 05/16/2021 Active Montelukast Sodium 10 MG Oral Tablet (Singulair)Indicatio ns:COPD, group D, by GOLD 2017 classification ([facility]) Take 1 Tab by mouth every evening. 90 Tab 3 05/16/2021 Active guaiFENesin ER 600 MG Oral Tablet Extended Release 12 Hour Take 1 Tablet by mouth in the morning. 0 Active D3 50 MCG (2000 UT) Oral Tablet (Cholecalciferol) Take 1 Tablet by mouth in the morning. 25 mcg. 0 Active Furosemide 20 MG Oral Tablet (Lasix) TAKE 1 TABLET BY MOUTH DAILY 5 DAYS PER WEEK 65 Tablet 3 07/28/2022 Active Additional Information Patient taking differently: Using as needed, Reported on 05/22/2023 metFORMIN HCl 500 MG Oral Tablet (Glucophage) [...] Oral Tablet (Coumadin)Indication s:PAF (paroxysmal atrial fibrillation) ([facility]),Anticoagulatio n management encounter,Anticoagul ant long-term use Take 1 Tablet by mouth every evening. 30 Tablet 5 05/22/2023 Active Spironolactone 25 MG Oral Tablet (Aldactone) TAKE ONE-HALF TABLET BY MOUTH IN THE MORNING 45 Tablet 3 10/05/2023 Active Ipratropium [place] 0.02 % Inhalation Solution (Atrovent) Inhale 2.5 [...] mouth at bedtime. 0 11/09/2023 Active Tiotropium [place] Monohydrate 18 MCG Inhalation Capsule (Spiriva HandiHaler) [...] as needed for Sleep. 0 11/09/2023 Active documented as of this encounter (statuses [...] as of this encounter Progress Notes * Linda Richard RPh - 11/11/2023 10:43 AM EDT Medication Therapy Disease Management - Anticoagulation Patient: Dru Galvan | : 1940 [facility] Patient Anticoagulation Encounter Patient is a resident at: [facility] -- Fax sent to number listed above detailing plan of care below. Please notify clinic with any unusual brusing or bleeding, N/V/D, medication or diet changes or anymissed or extra doses of Coumadin. Subjective Patient-Reported Symptoms: Objective Current Warfarin Dose As of 11/11/2023 Warfarin maintenance plan: 5 mg (5 mg x 1) every Mon, Fri; 2.5 mg (5 mg x 0.5) all other days INR Result As of 11/11/2023 INR goal: 2.0-3.0 INR used for dosin.1 (11/11/2023) Assessment & Plan Warfarin Plan As of 11/11/2023 Full warfarin instructions: 5 mg every Mon, Fri; 2.5 mg all other days No change documented: Linda Richard RPh Next INR check: 11/25/2023 Repeat PT/INR in 2 week(s) Weekly dose: not changed Additional Dosing Information: Linda Richard RPh Clinical Pharmacist 11/11/2023, 10:44 AM documented in this encounter Plan of Treatment Upcoming Encounters Date Type Department Care Team (Late st Contact Info) Description 11/11/2023 2:30 PM EDT Anticoagulation Pharmacy, [address] [place] [address] [place] [address] 12/29/2023 10:20 AM EDT Office Visit Pulmonary Medicine, [facility] [address] [place] [address] Jack Desouza MD [address] [place] [phone] Health Maintenance Due Date Last Done Comments HbA1c 1946 Pneumococcal Vaccine: 65+ Years (1 of 2 - PCV) 1946 Depression Screening 1953 Albumin/Creatinine Ratio 1959 Diabetic Eye Exam 1959 Diabetic Foot [...] 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s documented in this encounter Care Teams Department Supervisor Relationship Specialty Start Date End Date [facility] [address] [facility] [address] P[facility] - General Family Medicine 05/17/18 documented as of this encounter"
--- OUTSIDE RECORDS SUMMARY | 2023-11-19 03:22 | External Medical Summary | Summary of Care ---
Author Name Unknown Organization [facility] Address [address] [place] [address] Phone [phone] Care Team Providers Care Sheet Pile Driver Operator Name Role Phone Arun Alexandre MD Primary Care Provider [phone] Reason for Visit * Reason Onset Date Comments Skilled Visit 11/16/2023 Encounter Details Date Type Department Care Team (Latest Contact Info) Description 11/16/2023 11:00 AM EDT Longterm Visit [facility] [address] [place] [address] Anamika Myers PA-C [address] [place] [address] Chronic respiratory failure with hypoxia ([facility])*; COPD, group D, by GOLD 2017 classification ([facility]); Chronic diastolic heart failure (HCC); PAF (paroxysmal atrial fibrillation) ([facility]); Type 2 diabetes mellitus with stage 3a chronic kidney disease, without long-term current use of insulin ([facility]) Allergies Active Allergy Reactions Criticality Noted Date Comments Isosorbide Nitrate 05/07/2021 Headache Pollen Other (Please comment) 01/17/2014 Runny nose, itchy eyes, nasal congestion documented as of this encounter (statuses as of 11/16/2023) Medications Medication Sig Dispensed Refills Start Date End Date Status Multiple Vitamins-Minerals (PRESERVISION/LUTEIN) Capsule Take 2 Capsules by mouth in the morning. 0 Active oxygen GAS Use 2 L/min(Oxygen) as directed in the morning. Using 5 LPM continuous. 0 02/05/2016 Active Fluticasone-Salmetero l 250-50 MCG/DOSE Inhalation Aerosol Powder Breath Activated (Advair Diskus)Indications:CO PD, group D, by GOLD 2017 classification ([facility]) Inhale 1 Puff by mouth 2 times a day. 180 Each 3 05/16/2021 Active Montelukast Sodium 10 MG Oral Tablet (Singulair)Indication s:COPD, group D, by GOLD 2017 classification ([facility]) Take 1 Tab by mouth [...] Oral Tablet (Coumadin)Indications :PAF (paroxysmal atrial fibrillation) ([facility]),Anticoagulation management encounter,Anticoagula nt long-term use Take 1 Tablet by mouth every evening. 30 Tablet 5 05/22/2023 Active Spironolactone 25 MG Oral Tablet (Aldactone) TAKE ONE-HALF TABLET BY MOUTH IN THE MORNING 45 Tablet 3 10/05/2023 Active Ipratropium [place] 0.02 % Inhalation Solution (Atrovent) Inhale 2.5 [...] in the morning. 0 11/09/2023 Active Tiotropium [place] Monohydrate 18 MCG Inhalation Capsule (Spiriva HandiHaler) [...] by mouth at bedtime. 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 01/26/2019 09/28/2019 COPD, severe 06/07/2018 02/28/2021 Overview: Per COPD GOLD Classification Family history of ischemic heart disease 06/07/2018 11/09/2023 SCC (squamous cell carcinoma), face 05/03/2014 06/13/2015 Overview: L lateral forehead documented as of this encounter (statuses as of 11/16/2023) Immunizations Name Administration Dates Next Due SARS-COV-2 [...] Call Center [place] [address] [place] [address] [facility], [facility] 58 60 [facility] [place] [address] 12/29/2023 10:20 AM EDT Office Visit Pulmonary Medicine, [facility] [address] [facility] [place] [address] Jack Desouza MD [address] [facility] [place] [address] Health Maintenance Due Date Last Done Comments HbA1c 1946 Pneumococcal Vaccine: 65+ Years (1 of 2 - PCV) 1946 Depression Screening 1953 Albumin/Creatinine Ratio 1959 CKD PHOS USE SMARTSET 24544 1959 Diabetic Eye Exam 1959 Diabetic Foot Exam 1959 DTaP,Tdap,and Td Vaccines (1 - Tdap) 1960 Zoster Vaccines (1 of 2) 1991 *ADVANCE DIRECTIVE NOT ON FILE 05/13/2020 COVID-19 Vaccine (3 - season) 2023 10/12/2020, 09/14/2020 GFR 05/13/2024 11/11/2023, 10/16, 01/06/2022, Additional history exists O2 ASSESSMENT COMPLETED IN PAST YEAR FOR COPD 10/27/2024 10/28/2023 CKD HGB USE SMARTSET 43257 11/08/202411/08, 11/09/2023, 05/22/2023, Additional history exists Alpha-1 [...] with hypoxia (HCC)- Primary Chronic respiratory failure COPD, group D, by GOLD 2017 classification (HCC) Chronic diastolic heart failure (HCC) Chronic diastolic heart failure PAF (paroxysmal atrial fibrillation) (HCC) Atrial fibrillation Type 2 diabetes mellitus with stage 3a chronic kidney disease, without long-term current use of insulin (HCC) documented in this encounter Care Teams Sheet Pile Driver Operator Relationship Specialty Start Date End Date Arun Alexandre MD [address] [place] [address] PCP - General Family Medicine 05/17/18 documented as of this encounter
--- OUTSIDE RECORDS SUMMARY | 2023-11-19 03:22 | External Medical Summary | Continuity Of Care Document ---
Author Name Unknown Address [address] [place] [address] Organization [facility] Problems Code Description Start Date End Date Status J96.01 Acute respiratory failure with hypoxia 11/06/19 Active I50.31 Acute diastolic (congestive) heart failure 10/16 Active J44.9 Chronic obstructive pulmonary disease, unspecified 11/06/2023 Active N17.9 Acute kidney failure, unspecified 11/06/2023 Active E11.9 Type 2 diabetes mellitus without complications 11/06/2023 Active I25.10 Atherosclerotic hear t disease of [place] coronary artery without angina pectoris 11/06/2023 Active I10. Essential (primary) hypertension 11/06/2023 Active J96.01 Acute respiratory failure with hypoxia 11/06/19 Active VITAL SIGNS Date Time Diastolic blood pressure Systolic blood pressure Body height Body weight Temperature SpO2 Blood Sugar Pulse Respirations 01098 322 51998 1 49.00 mm[Hg] - Sitting 87.00 mm[Hg] - Sitting 157.00 NI 90.00 % 109.00 /min 26.00/min 07100 322 58430 5 16011 323 28192 0 323 66005 3 81.00 mm[Hg] - Sitting 123.00 mm[Hg] - Sitting 97.10 Ear 88.00 % 73.00/ min 24.00/min 25949 323 26744 9 162.00 NI 39878 323 60028 0 90.00 % 80490 324 83198 9 81.00 mm[Hg] - Sitting 123.00 mm[Hg] - Sitting 97.10 Ear 73.00/ min 24.00/min 15421 324 77122 9 70.00 mm[Hg] - Lying Down 110.00 mm[Hg] - Lying Down 98.40 Ear 90.00 % 95.00/ min 24.00/min 25167 325 74826 1 91864 325 81318 2 154.60 NI 85870 325 55483 0 67 NI 30661 325 78565 3 73.00 mm[Hg] - Sitting 111.00 mm[Hg] - Sitting 96.90 Ear 88.00 % 91.00/ min 24.00/min 70654 326 58992 3 76.00 mm[Hg] - Sitting 132.00 mm[Hg] - Sitting 98.10 Oral 90.00 % 98.00/ min 18.00/min 28601 326 08347 0 88.00 % 108.00 /min 22.00/min 12729 327 54095 8 155.00 NI 99911 327 41144 0 59.00 mm[Hg] - Sitting 95.00 mm[Hg] - Sitting 97.60 Ear 88.00 % 87.00/ min 20.00/min 57266 328 36714 0 72.00 mm[Hg] - Sitting 134.00 mm[Hg] - Sitting 97.40 Ear 87.00 % 108.00 /min 22.00/min
--- OUTSIDE RECORDS SUMMARY | 2023-11-19 03:22 | External Medical Summary | Summary of Care ---
Author Name Unknown Organization [facility] Address [address] [place] [address] Phone [phone] Care Team Providers Care Cook Soup Name Role Phone Arun Alexandre MD Primary Care Provider [phone] Encounter Details Date Type Department Care Team (Late st Contact Info) Description 11/10/2023 Orders Only Lab Mobile Phlebotomy [facility] [address] [place] [address] Krista Perez MD [address] [place] [address] [place] [address] Chronic kidney disease (CKD)*; DM (diabetes mellitus) ([facility]); A-fib ([facility]) Allergies Active Allergy Reactions Criticality Noted Date Comments Isosorbide Nitrate 05/07/2021 Headache Pollen Other (Please comment) 01/17/2014 Runny nose, itchy eyes, nasal congestion documented as of this encounter (statuses as of 11/10/2023) Medications Medication Sig Dispensed Refills Start Date End Date Status Multiple Vitamins-Minerals (PRESERVISION/LUTEIN ) Capsule Take 2 Capsules by mouth in the morning. 0 Active oxygen GAS Use 2 L/min(Oxygen) as directed in the morning. Using 5 LPM continuous. 0 02/05/2016 Active Fluticasone-Salmeter ol 250-50 MCG/DOSE Inhalation Aerosol Powder Breath Activated (Advair Diskus)Indications:C OPD, group D, by GOLD 2017 classification ([facility]) Inhale 1 Puff by mouth 2 times a day. 180 Each 3 05/16/2021 Active Montelukast Sodium 10 MG Oral Tablet (Singulair)Indicatio ns:COPD, group D, by GOLD 2017 classification ([facility]) Take 1 Tab by mouth every [...] (Coumadin)Indication s:PAF (paroxysmal atrial fibrillation) ([facility]),Anticoagulatio n management encounter,Anticoagul ant long-term use Take 1 Tablet by mouth every evening. 30 Tablet 5 05/22/2023 Active Spironolactone 25 MG Oral Tablet (Aldactone) TAKE ONE-HALF TABLET BY MOUTH IN THE MORNING 45 Tablet 3 10/05/2023 Active Ipratropium [place] 0.02 % Inhalation Solution (Atrovent) Inhale 2.5 [...] instructed.. 30 Tablet 2 10/28/2023 4 Active Centrum Silver Oral Tablet Take 1 Tablet by mouth in the morning. 0 11/09/2023 Active Atorvastatin Calcium 10 MG Oral Tablet (Lipitor)Indications :Dyslipidemia, goal LDL below 70 Take 1 Tablet by mouth in the morning. 0 11/09/2023 Active Melatonin 3 MG Oral Tablet Take 1 Tablet by mouth at bedtime. 0 11/09/2023 Active Tiotropium [place] Monohydrate 18 MCG Inhalation Capsule (Spiriva HandiHaler) [...] as of this encounter (statuses as of 11/10/2023) Active Problems Problem Noted Date Diagnosed Date [...] as of this encounter (statuses as of 11/10/2023) Resolved Problems Problem Noted Date Diagnosed Date [...] as of this encounter (statuses as of 11/10/2023) Immunizations Name Administration Dates Next Due SARS-COV-2 [...] Team (Late st Contact Info) Description 11/11/2023 6:00 AM EDT Laboratory Lab Mobile Phlebot[facility] [address] [place] [address] 11/11/2023 9:30 AM EDT Prison Visit [address] [place] [address] Krista Perez MD [address] [place] [address] [place] [address] 11/11/2023 2:30 PM EDT Anticoagulation Pharmacy, [address] [place] [address] [place] [address] 11/11/2023 5:30 PM EDT Anticoagulation Pharmacy [facility] [address] [facility] [place] [address] [facility] 58 60 [facility] [place] [address] 12/29/2023 10:20 AM EDT Office Visit Pulmonary Medicine, [facility] [address] [facility] [place] [address] Jack Desouza MD [address] [place] [address] Scheduled Orders Name Type Priority Associated Diagnoses Orde r Schedule COMPREHENSIVE METABOLIC PANEL Lab Routine Chronic kidney disease (CKD) DM (diabetes mellitus) (HCC) A-fib (HCC) Expected: 11/11/2023, Expires: 11/09/2024 PT INR Lab Routine Chronic kidney disease (CKD) DM (diabetes mellitus) (HCC) A-fib (HCC) Expected: 11/11/2023, Expires: 11/09/2024 MAGNESIUM Lab Routine Chronic kidney disease (CKD) DM (diabetes mellitus) (HCC) A-fib (HCC) Expected: 11/11/2023, Expires: 11/09/2024 Health Maintenance Due Date Last Done Comments HbA1c 1946 Pneumococcal Vaccine: 65+ Years (1 of 2 - PCV) 1946 Depression Screening 1953 Albumin/Creatinine Ratio 1959 Diabetic Eye Exam 1959 Diabetic Foot Exam 1959 DTaP,Tdap,and Td Vaccines (1 - Tdap) 1960 Zoster Vaccines (1 of 2) 1991 *ADVANCE DIRECTIVE NOT ON FILE 05/13/2020 COVID-19 Vaccine (3 - 2022- season) 2023 10/12/2020, 09/14/2020 O2 ASSESSMENT COMPLETED IN PAST YEAR FOR COPD 10/27/2024 10/28/2023 GFR 11/08/2024 11/09/2023, 05/2 10/2021, 04/24/2020, Additional history exists Alpha-1 Antitrypsin Completed 05/09/2020 [...] of this encounter Visit Diagnoses Diagnosis Chronic kidney disease (CKD)- Primary Chronic kidney disease, unspecified DM (diabetes mellitus) (HCC) Type II or unspecified type diabetes mellitus without mention of complication, not stated as uncontrolled A-fib (HCC) Atrial fibrillation documented in this encounter Care Teams Cook Soup Relationship Specialty Start Date End Date Arun Alexandre MD [address] [place] [address] PCP - General Family Medicine 05/17/18 documented as of this encounter
--- OUTSIDE RECORDS SUMMARY | 2023-11-19 03:22 | External Medical Summary ---
Author Name Unknown Address Unknown Organization [facility] [address] [place] [address] Laboratory Report Ordering Provider Test Date Status YULISSA GERARD 11/11/2023 05:59:00 Final Observation Date Value Abnormality Reference (Units ) Status BUN 11/11/2023 05:59:00 30 Above high normal 6-20 (mg/dL) Final Creatinine 11/11/2023 05:59:00 1.2 0.6-1.2 (mg/dL) Final Glomerular filtration rate/1.73 sq M.predicted [Volume Rate/Area] in Serum, Plasma or Blood by Creatinine-based formula (CKD-EPI) 11/11/2023 05:59:00 59 Below low normal >=60 (mL/min) Final eGFR is calculated based on the CKD-EPI 2020 equation Sodium 11/11/2023 05:59:00 141 135-146 (m mol/L) Final Potassium 11/11/2023 05:59:00 4.5 3.5-5.1 (m mol/L) Final Cl 11/11/2023 05:59:00 106 98-107 (mm ol/L) Final CO2 11/11/2023 05:59:00 24 22-32 (mmo l/L) Final Anion gap 11/11/2023 05:59:00 11 7-15 (mmol /L) Final Glucose 11/11/2023 05:59:00 105 70-120 (mg /dL) Final Albumin 11/11/2023 05:59:00 3.3 Below low normal 3.8 -5.0 (g/dL) Final AST (Aspartate aminotransferase) 11/11/2023 05:59:00 15 10-50 (U/L) Fin al Alk Phos 11/11/2023 05:59:00 54 35-130 (U/ L) Final Bilirubin, Total 11/11/2023 05:59:00 0.4 <=1 .2 (mg/dL) Final Calcium 11/11/2023 05:59:00 9.0 8.4-10.2 ( mg/dL) Final Protein 11/11/2023 05:59:00 5.1 Below low normal 6.0 -8.3 (g/dL) Final ALT (Alanine aminotransferase) 11/11/2023 05:59:00 54 Above high normal 10-50 (U/L) Final Performing Location [facility] [address] [facility] [address]
--- OUTSIDE RECORDS SUMMARY | 2023-11-19 03:22 | External Medical Summary | Summary of Care ---
Author Name Unknown Organization [facility] Address [address] [place] [address] Phone [phone] Care Team Providers Care Architecture Professor Name Role Phone Arun Alexandre MD Primary Care Provider [phone] Reason for Visit * Reason Onset Date Comments Skilled Visit 11/17/2023 Encounter Details Date Type Department Care Team (Latest Contact Info) Description 11/17/2023 7:30 AM EDT Retirement Visit [facility] [address] [place] [address] Anamika Myers PA-C [address] [place] [address] Nocturia*; Urinary hesitancy; Chronic respiratory failure with hypoxia ([facility]); COPD, group D, by GOLD 2017 classification ([facility]) Allergies Active Allergy Reactions Criticality Noted Date [...] COPD, group D, by GOLD 2017 classification ([facility]) Inhale 1 Puff by mouth 2 times a day. 180 Each 3 05/16/2021 Active Montelukast Sodium 10 MG Oral Tablet (Singulair)Indicati ons:COPD, group D, by GOLD 2017 classification ([facility] [...] Oral Tablet (Coumadin)Indicatio ns:PAF (paroxysmal atrial fibrillation) ([facility]),Anticoagulati on management encounter,Anticoagu lant long-term use Take 1 Tablet by mouth every evening. 30 Tablet 5 05/22/2023 Active Spironolactone 25 MG Oral Tablet (Aldactone) TAKE ONE-HALF TABLET BY MOUTH IN THE MORNING 45 Tablet 3 10/05/2023 Active Ipratropium [place] 0.02 % Inhalation Solution (Atrovent) Inhale 2.5 [...] in the morning. 0 11/09/2023 Active Tiotropium [place] Monohydrate 18 MCG Inhalation Capsule (Spiriva HandiHaler) [...] squamous cell carcinoma (L lateral forehead, L sabianism 07/05), squamous cell carcinoma in situ (L [...] cell carcinoma of s kin of left sabianism 07/01/2019 09/28/2019 Squamous cell carcinoma in s [...] PM EDT Anticoagulation Pharmacy Call Center [address] [facility] [place] [address] [facility] 58 60 [facility] [place] [address] 12/29/2023 10:20 AM EDT Office Visit Pulmonary Medicine, [facility] [address] [facility] [place] [address] Jack Desouza MD [address] [facility] [address] Health Maintenance Due Date Last Done Comments HbA1c 1946 Pneumococcal Vaccine: 65+ Years (1 of 2 - PCV) 1946 Depression Screening 1953 Albumin/Creatinine Ratio 1959 CKD PHOS USE SMARTSET 95998 1959 Diabetic Eye Exam 1959 Diabetic Foot Exam 1959 DTaP,Tdap,and Td Vaccines (1 - Tdap) 1960 Zoster Vaccines (1 of 2) 1991 *ADVANCE DIRECTIVE NOT ON FILE 05/13/2020 COVID-19 Vaccine (3 - season) 2023 10/12/2020, 09/14/2020 GFR 05/13/2024 11/11/2023, 10/16, 01/06/2022, Additional history exists O2 ASSESSMENT COMPLETED IN PAST YEAR FOR COPD 10/27/2024 10/28/2023 CKD HGB USE SMARTSET 99728 11/08/202411/08, 11/09/2023, 05/22/2023, Additional history exists Alpha-1 [...] (HCC) documented in this encounter Care Teams Architecture Professor Relationship Specialty Start Date End Date Arun Alexandre MD [address] [place] [address] PCP - General Family Medicine 05/17/18 documented as of this encounter
--- OUTSIDE RECORDS SUMMARY | 2023-11-19 03:23 | External Medical Summary | Summary of Care ---
Author Name Unknown Organization [facility] Address [address] [place] [address] Phone [phone] Care Team Providers Care Environmental Aide Name Role Phone Arun Alexandre MD Primary Care Provider [phone] Reason for Visit * Reason Onset Date Comments Care Home Visit 11/09/2023 Encounter Details Date Type Department Care Team (Latest Contact Info) Description 11/09/2023 7:00 AM EDT Care Home Visit [facility] [address] [place] [address] Anamika Myers PA-C [address] [place] [address] Acute on chronic respiratory failure with hypoxia (HCC)*; Dyslipidemia, goal LDL below 70; Acute on chronic diastolic (congestive) heart failure (HCC); COPD exacerbation (HCC); Left upper lobe pulmonary nodule; JOSEFINA (acute kidney injury) ([facility]); Paroxysmal atrial fibrillation with RVR (HCC); PHT (pulmonary hypertension) ([facility]); Type 2 diabetes mellitus with stage 2 chronic kidney disease, without long-term current use of insulin (HCC) Allergies Active Allergy Reactions Criticality Noted Date Comments Isosorbide Nitrate 05/07/2021 Headache Pollen Other (Please comment) 01/17/2014 Runny nose, itchy eyes, nasal congestion documented as of this encounter (statuses as of 11/09/2023) Medications Medication Sig Dispensed Refills Start Date End Date Status Multiple Vitamins-Minerals (PRESERVISION/LUTE IN) Capsule Take 2 Capsules by mouth in the morning. 0 Active oxygen GAS Use 2 L/min(Oxygen) as directed in the morning. Using 5 LPM continuous. 0 6 Active Fluticasone-Salmet rachael 250-50 MCG/DOSE Inhalation Aerosol Powder Breath Activated (Advair Diskus)Indications :COPD, group D, by GOLD 2017 classification ([facility]) Inhale 1 Puff by mouth 2 times a day. 180 Each 3 1 Active Montelukast Sodium 10 MG Oral Tablet (Singulair)Indicat ions:COPD, group D, by GOLD 2017 classification ([facility]) Take 1 Tab by mouth every evening. 90 Tab 3 1 Active guaiFENesin ER 600 MG [...] the morning. 135 Tablet 3 3 Active Warfarin Sodium 5 MG Oral Tablet (Coumadin)Indicati ons:PAF (paroxysmal atrial fibrillation) ([facility]),Anticoagulat ion management encounter,Anticoag ulant long-term use Take 1 Tablet by mouth every evening. 30 Tablet 5 3 Active Spironolactone 25 MG Oral Tablet (Aldactone) TAKE ONE-HALF TABLET BY MOUTH IN THE MORNING 45 Tablet 3 4 Active Ipratropium [place] 0.02 % Inhalation Solution (Atrovent) Inhale 2.5 [...] instructed.. 30 Tablet 2 4 024 Active Centrum Silver Oral Tablet Take 1 Tablet by mouth in the morning. 0 4 Active Atorvastatin Calcium 10 MG Oral Tablet (Lipitor)Indicatio ns:Dyslipidemia, goal LDL below 70 Take 1 Tablet by mouth in the morning. 0 4 Active Melatonin 3 MG Oral Tablet Take 1 Tablet by mouth at bedtime. 0 4 Active Tiotropium [place] Monohydrate 18 MCG Inhalation Capsule (Spiriva HandiHaler) Inhale 1 Capsule by mouth in the morning. For inhaler only, do not swallow.. 0 4 Active Dapagliflozin Propanediol 10 MG Oral Tablet (Farxiga) Take 1 Tablet by mouth in the morning. 0 4 Active hydrOXYzine HCl 10 MG Oral Tablet (Atarax) Take 1 Tablet by mouth every 8 hours as needed for Anxiety. 0 4 Active traZODone HCl 50 MG Oral Tablet (Desyrel) Take 1 Tablet by mouth at bedtime as needed for Sleep. 0 4 Active CENTRUM SILVER PO TABS once daily 0 Discontinued Magnesium Oxide 400 MG CapsuleIndications :HTN, goal below 140/90,Atrial ectopy Take 1 Cap by mouth daily. 34 Cap 11 7 Discontinued(Me dication List Clean Up) dutasteride (AVODART) 0.5 MG Capsule Take 1 Capsule by mouth in the morning. 0 024 Discontinued(Me dication List Clean Up) diphenhydrAMINE HCl (BENADRYL) 12.5 MG/5ML liquid Take 10 mL by mouth 4 times a day as needed for Rhinitis. 0 024 Discontinued(Me dication List Clean Up) Fluticasone Propionate 50 MCG/ACT Nasal Suspension (Flonase)Indicatio ns:COPD, group D, by GOLD 2017 classification ([facility]) Administer 2 Sprays into nostril daily. 16 g 3 1 024 Discontinued(Me dication List Clean Up) Omeprazole 20 MG Oral Capsule Delayed Release (PriLOSEC)Indicati ons:Gastroesophage al reflux disease without esophagitis Take 1 Cap by mouth daily as needed for Heartburn. 90 Cap 3 1 024 Discontinued(Me dication List Clean Up) Mupirocin 2 % External Ointment (Bactroban) Apply to wound on left wrist daily 22 g 0 2 024 Discontinued(Me dication List Clean Up) Atorvastatin Calcium 10 MG Oral Tablet (Lipitor)Indicatio ns:Dyslipidemia, goal LDL below 70 TAKE 1 TABLET BY MOUTH DAILY 90 Tablet 3 3 024 Discontinued Melatonin 1 MG Oral Tablet Chewable Take by mouth. 0 024 Discontinued(Me dication/Dose Changed) Pantoprazole Sodium 40 MG Oral Tablet Delayed Release (Protonix) Take 1 Tablet by mouth in the morning. 90 Tablet 3 3 024 Discontinued(Me dication List Clean Up) ProAir HFA 108 (90 Base) MCG/ACT Inhalation Aerosol SolutionIndication s:COPD, group D, by GOLD 2017 classification (HCC),SOB (shortness of breath) Inhale 2 Puffs by mouth every 6 hours as needed for Shortness of Breath or Wheezing. 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, R dorsal hand, R scalp 2018, L dorsal wrist 06/07), basal cell carcinoma (L forearm, L preauricular region 09/2019) AK (actinic keratosis) 05/24/2014 Overview: Efudex 04/2014 documented as of this encounter (statuses as of 11/09/2023) Resolved Problems Problem Noted Date Diagnosed Date Resolved Date Encounter for long-term (cur rent) use of other medications 05/22/2023 11/09/2023 Anticoagulation management encounter 05/22/2023 11/09/2023 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 07/01/2019 09/28/2019 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 01/26/2019 09/28/2019 COPD, severe 06/07/2018 02/28/2021 Overview: Per COPD GOLD Classification Family history of ischemic heart disease 06/07/2018 11/09/2023 SCC (squamous cell carcinoma), face 05/03/2014 06/13/2015 Overview: L lateral forehead documented as of this encounter (statuses as of 11/09/2023) Immunizations Name Administration Dates Next Due SARS-COV-2 [...] Care Team (Late st Contact Info) Description 11/09/2023 5:30 PM EDT Anticoagulation Pharmacy [facility] [address] [facility] [place] [address] [facility] 58 60 [facility] [place] [address] 11/11/2023 2:30 PM EDT Anticoagulation Pharmacy, [address] [place] [address] [place] [address] 12/29/2023 10:20 AM EDT Office Visit Pulmonary Medicine, [facility] [address] [facility] [place] [address] Jack Desouza MD [address] [place] [id number] Health Maintenance Due Date Last Done Comments [...] chronic respiratory failure with hypoxia (HCC)- Primary Dyslipidemia, goal LDL below 70 Other and unspecified hyperlipidemia Acute on chronic diastolic (congestive) heart failure (HCC) COPD exacerbation (HCC) Obstructive chronic bronchitis with exacerbation Left upper lobe pulmonary nodule JOSEFINA (acute kidney injury) (HCC) Acute kidney failure, unspecified Paroxysmal atrial fibrillation with RVR (HCC) PHT (pulmonary hypertension) (HCC) Other chronic pulmonary heart diseases Type 2 diabetes mellitus with stage 2 chronic kidney disease, without long-term current use of insulin (HCC) documented in this encounter Care Teams Environmental Aide Relationship Specialty Start Date End Date Arun Alexandre MD [address] [place] [address] PCP - General Family Medicine 05/17/18 documented as of this encounter
--- OUTSIDE RECORDS SUMMARY | 2023-11-19 03:23 | External Medical Summary | Summary of Care ---
Author Name Unknown Organization [facility] Address [address] [place] [address] Phone [phone] Care Team Providers Care Plush Cutter Name Role Phone Arun Alexandre MD Primary Care Provider + [phone] Reason for Referral * Evaluate & Treat - Unlimited Visits (Within 3 days (urgent)) - Authorized Specialty Diagnoses / Procedures Referred By Elvia t Referred To Contact ANTI-[facility]AG CLINIC / Pharmacy Diagnoses PAF (paroxysmal atrial fibrillation) (HCC) Anamika Myers PA-C [address] [place] [id number] Referral ID Status Reason Start Date Expiration Date Visits Requested Visits Authorized [id number] Authorized Specialty Services Required 11/09/2023 05/07/2024 99 99 Question Answer Referral Priority Within 3 days (urgent) Where should this appointment be scheduled? [facility] Anticoagulation referral for management of: Warfarin Indication and INR goal for Warfarin Management: PAF Relevant History: PAF Enoxaparin bridging required? No Minimum frequency patient should be seen in person for medication management: as appropriate per clinical condition and patient status By my signature, I understand that my patient Dru Galvan will have his medication therapy managed by the [facility] ([facility]) per established policies, procedures, and protocols. I also certify that this referral may serve as an initiation of service for the management of drug therapy in the above noted patient. [facility] providers will be responsible for scheduling patient visits, obtaining appropriate laboratory studies, and adjusting medication management therapy per patient's need, in addition to those roles spelled out in the clinic policy, procedures, and drug management protocols. I understand that the service provided by the [facility] is voluntary and have informed patient that they can refuse the service at their discretion. I am aware that the [facility] will provide me with a copy of the patient encounter via my [facility]. I authorize the [facility] to carry out these activities on my behalf. I consider this program to be a necessary part of the patient's medical care. Anamika Myers PA-C Encounter Details Date Type Department Care Team (Late st Contact Info) Description 11/09/2023 Orders Only [facility] [place] [address] [place] [address] Anamika Myers PA-C [address] [place] [address] PAF (paroxysmal atrial fibrillation) ([facility])* Allergies Active Allergy Reactions Criticality Noted Date [...] MORNING 45 Tablet 3 10/05/2023 Active Ipratropium [place] 0.02 % Inhalation Solution (Atrovent) Inhale 2.5 [...] mouth at bedtime. 0 11/09/2023 Active Tiotropium [place] Monohydrate 18 MCG Inhalation Capsule (Spiriva HandiHaler) [...] Description 11/09/2023 5:30 PM EDT Anticoagulation Pharmacy Call Center [address] [place] [address] C[facility]ps, [facility] 58 60 [facility] [place] [address] 11/11/2023 2:30 PM EDT Anticoagulation Pharmacy, [address] [place] [address] [place] [address] 12/29/2023 10:20 AM EDT Office Visit Pulmonary Medicine, [facility] [address] [place] [address] Jack Desouza MD [address] [place] [address] Scheduled Referrals Name Type Priority Associated Diagnoses Orde r Schedule ANTI-COAGULATION REFERRAL OP Referral Within 3 days (urgent) PAF (paroxysmal atrial fibrillation) (HCC) Ordered: 11/09/2023 Health Maintenance Due Date Last Done Comments [...] (paroxysmal atrial fibrillation) (HCC)- Primary Atrial fibrillation documented in this encounter Care Teams Plush Cutter Relationship Specialty Start Date End Date Arun Alexandre MD [address] [place] [address] PCP - General Family Medicine 05/17/18 documented as of this encounter
--- OUTSIDE RECORDS SUMMARY | 2023-11-19 03:23 | External Medical Summary | Summary of Care ---
Author Name Unknown Organization [facility] Address [address] [place] [address] Phone [phone] Care Team Providers Care Fish Butcher Name Role Phone Arun Alexandre MD Primary Care Provider [phone] Reason for Visit * Reason Onset Date Comments Skilled Visit 11/10/2023 Encounter Details Date Type Department Care Team (Latest Contact Info) Description 11/10/2023 6:30 AM EDT Detention Visit [facility] [address] [place] [address] Anamika Myers PA-C [address] [place] [address] Acute on chronic respiratory failure with hypoxia ([facility])*; Acute on chronic diastolic (congestive) heart failure ([facility]); COPD, group D, by GOLD 2017 classification ([facility]); PAF (paroxysmal atrial fibrillation) ([facility]); Type 2 diabetes mellitus with stage 3a chronic kidney disease, without long-term current use of insulin ([facility]) Allergies Active Allergy Reactions Criticality Noted [...] OPD, group D, by GOLD 2017 classification ([facility]) Inhale 1 Puff by mouth 2 times a day. 180 Each 3 05/16/2021 Active Montelukast Sodium 10 MG Oral Tablet (Singulair)Indicatio ns:COPD, group D, by GOLD 2017 classification ([facility]) Take 1 Tab by mouth [...] Oral Tablet (Coumadin)Indication s:PAF (paroxysmal atrial fibrillation) ([facility]),Anticoagulatio n management encounter,Anticoagul ant long-term use Take 1 Tablet by mouth every evening. 30 Tablet 5 05/22/2023 Active Spironolactone 25 MG Oral Tablet (Aldactone) TAKE ONE-HALF TABLET BY MOUTH IN THE MORNING 45 Tablet 3 10/05/2023 Active Ipratropium [place] 0.02 % Inhalation Solution (Atrovent) Inhale 2.5 [...] mouth at bedtime. 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 Please see facility medical record for original note. This note is not to be edited or addended in [employer]. Editing or addending needs to occur in the facilities medical record. Subjective: Dru Galvan is a 83 year old male. Patient being seen for skilled visit Chief Complaint Patient presents with Skilled Visit HPI: Pt here for rehabilitation following [facility] admission for acute on chronic respiratory failure with hypoxia, acute on chronic diastolic CHF and PAF with RVR. Pt had some increased dyspnea and hypoxia compared to his baseline but this morning he states his breathing is pretty much back to his baseline. He is extremely dyspneic with any type of activities but states this has been the case for years. No chest pains, palpitations, dizziness, syncope, chills or fever. Weight staying stable. Vitalsigns stable. Pt would like his Trazodone made routine at HS instead of prn. He uses this to help him sleep at night and states it works well for him. BMs and voiding ok. CBC Results: Results [...] Results Component Value Date/Time CREATININE - [facility] 1.3 (H) 11/09/2023 06:17 AM CREATININE - [facility] 1.0 01/06/2022 12:09 PM CREATININE - [facility] 1.0 04/24/2020 11:57 AM CREATININE - [facility] 1.1 05/02/2019 09:28 AM CREATININE - [facility] 0.9 01/25/2019 10:57 AM CREATININE-OUTSIDE LAB 1.01 01/08/2016 12:00 AM Potassium Results: Lab Results Component Value Date/Time POTASSIUM - [facility] 4.5 11/09/2023 06:17 AM POTASSIUM - [facility] 4.7 01/06/2022 12:09 PM POTASSIUM - [facility] 4.5 04/24/2020 11:57 AM POTASSIUM - [facility] 4.7 05/02/2019 09:28 AM POTASSIUM - [facility] 4.5 01/25/2019 10:57 AM POTASSIUM-OUTSIDE LAB 5.1 (A) 01/08/2016 12:00 AM Sodium Results: Lab Results Component Value Date/Time SODIUM - [facility] 142 11/09/2023 06:17 AM [...] COPD, group D, by GOLD 2017 classification ([facility]) J44.9 PHT (pulmonary hypertension) ([facility]) I27.20 ILD (interstitial lung disease) ([facility]) J84.9 Chronic respiratory failure with hypoxia ([facility]) J96.11 Chronic diastolic heart failure ([facility]) I50.32 Vitamin B deficiency E53.9 Vitamin D deficiency E55.9 Screening for prostate cancer Z12.5 PAF (paroxysmal atrial fibrillation) ([facility]) I48.0 Need for prophylactic vaccination and inoculation against influenza Z23 Anticoagulant long-term use Z79.01 Type 2 diabetes mellitus with stage 3a chronic kidney disease, without long-term current use of insulin ([facility]) E11.22, N18.31 Esophageal dysmotility K22.4 History of 2019 novel coronavirus disease (COVID-19) Z86.16 DNR (do not resuscitate) Z66 History of tobacco use Z87.891 Left upper lobe pulmonary nodule R91.1 Past Medical History: Diagnosis Date COPD (chronic obstructive pulmonary disease) (HCC) ILD (interstitial lung disease) ([facility]) Lung nodule Pulmonary arterial hypertension (HCC) No past surgical history on file. Family History Problem Relation Age of Onset Heart Disorder Grandfather (Maternal) 80 DC Renal Hx Mother ESRD Breast Cancer Mother [...] level: Not on file Occupational History Occupation: [employer] Comment: worked with fumes; wasn't in the [employer] Tobacco Use Smoking status: Former Current packs/day: [...] list as this cannot be edited in Velt[employer]. Review of Systems: Constitutional ROS: No change [...] see HPI Cardiovascular ROS: No chest pain, unchanged shortness of breath, No edema, No palpitations and No syncope Gastrointestinal ROS: No abdominal pain, No change in bowel habits, No significant change in appetite, No nausea, vomiting, diarrhea, or constipation and No dysphagia Skin/Integumentary ROS: No rash and No itching Neurologic ROS: No headaches and No seizures Psychiatric ROS: No depression, No anxiety and No psychosis Sleep: insomnia OBJECTIVE: PHYSICALEXAM: I reviewed the most recent facilities vitals. General: alert, less respiratory distress, well nourished and well developed Eye Exam: Conjunctiva are pink and non-injected, sclera clear Nose: no mucosal erythema, no mucosal edema, no purulent discharge Oropharynx: no exudate, no erythema, lips, buccal mucosa, and tongue normal and mucous membranes are moist Neck: supple, no adenopathy, non-tender, neck veins flat, trachea midline Lymph: no palpable lymphadenopathy Heart: regular rate & rhythm, no murmurs and no gallops Lungs: normal respiratory rate and rhythm, no chest wall tenderness, lungs distant BS with rhonchi unchanged Abdomen: abdomen soft, non-tender, normal bowel sounds and no masses or organomegaly Extremities: , no edema, no clubbing, no cyanosis Neuro Exam: alert with fluent speech, no focal motor/sensory deficits Skin: skin color, texture, turgor are normal, no rashes or significant lesions ASSESSMENT: Acute on chronic respiratory failure with hypoxia (HCC) (Primary) Stable currently Continue Advair 250/50mcg BID, Duonebs Q four hours prn Acute on chronic diastolic (congestive) heart failure (HCC) Stable weight and not active CHF at this time Continue Lasix 20mg daily COPD, group D, by GOLD 2017 classification ([facility]) Stable breathing Continue Advair 250/50mcg BID, Duonebs Q four hours prn and Spirva daily Will make Duonebs routine HS PAF (paroxysmal atrial fibrillation) ([facility]) Stable rate Continue with Toprol XL 50mg daily and Coumadin per anticoagulation clinic Type 2 diabetes mellitus with stage 3a chronic kidney disease, without long-term current use of insulin ([facility]) Stable glucoses Continue Metfromin 500mg BID and Farxiga 10mg daily PLAN: Reviewed CBC, BMP, Lytes and Continue present medication(s):as ordered. Will make Trazodone 50mg HS routine [facility] Treatment Given: as above Electronically signed by: Anamika Myers PA-C Over 45 minutes were spent in this visit more than half the time was spent counselling or coordinating care. documented in this encounter Plan of Treatment Upcoming Encounters Date Type Department Care Team (Late st Contact Info) Description 11/11/2023 2:30 PM EDT Anticoagulation Pharmacy, [address] [place] [address] [place] [address] 11/11/2023 5:30 PM EDT Anticoagulation Pharmacy [facility] [address] [place] [address] [facility] 58 60 [facility] [place] [address] 12/29/2023 10:20 AM EDT Office Visit Pulmonary Medicine, [facility] [address] [facility] [place] [address] Jack Desouza MD [address] [place] [address] Health Maintenance Due Date Last Done Comments [...] chronic respiratory failure with hypoxia (HCC)- Primary Acute on chronic diastolic (congestive) heart failure (HCC) COPD, group D, by GOLD 2017 classification (HCC) PAF (paroxysmal atrial fibrillation) (HCC) Atrial fibrillation Type 2 diabetes mellitus with stage 3a chronic kidney disease, without long-term current use of insulin (HCC) documented in this encounter Care Teams Fish Butcher Relationship Specialty Start Date End Date Arun Alexandre MD [address] [place] [address] PCP - General Family Medicine 05/17/18 documented as of this encounter
--- OUTSIDE RECORDS SUMMARY | 2023-11-19 03:23 | External Medical Summary ---
Author Name Unknown Address Unknown Organization [facility] [place] [address] [place] [address] Laboratory Report Ordering Provider Test Date Status YULISSA GERARD 11/09/2023 06:17:00 Final Observation Date Value Abnormality Reference (Units ) Status WBC, Total 11/09/2023 06:17:00 11.91 Above high normal 4 .00-10.80 (K/uL) Final RBC 11/09/2023 06:17:00 3.98 4.50-5.25 (M/uL) Final Hemoglobin 11/09/2023 06:17:00 12.2 Below low normal 14 .0-16.8 (g/dL) Final HCT 11/09/2023 06:17:00 37.8 Below low normal 40. 0-48.4 (%) Final MCV 11/09/2023 06:17:00 95.0 82.0-99.5 (fL) Final MCH 11/09/2023 06:17:00 30.7 27.0-34.0 (pg) Final MCHC 11/09/2023 06:17:00 32.3 32.0-36.0 (g/dL) Final RDW 11/09/2023 06:17:00 21.7 11.5-15.5 (%) Final Platelets 11/09/2023 06:17:00 170 140-400 (K /uL) Final MPV 11/09/2023 06:17:00 12.1 6.6-11.1 ( fL) Final Performing Location LABORATORY [facility] [place] [address] [place] [address]
--- OUTSIDE RECORDS SUMMARY | 2023-11-19 03:23 | External Medical Summary ---
Author Name Unknown Address Unknown [facility] [address] - [address] [place] [address] Laboratory Report Ordering Provider Test Date Status YULISSA GERARD 11/09/2023 06:17:00 Final Observation Date Value Abnormality Reference (Units ) Status BUN 11/09/2023 06:17:00 32 Above high normal 6-20 (mg/dL) Final Creatinine 11/09/2023 06:17:00 1.3 Above high normal 0.6-1.2 (mg/dL) Final Glomerular filtration rate/1.73 sq M.predicted [Volume Rate/Area] in Serum, Plasma or Blood by Creatinine-based formula (CKD-EPI) 11/09/2023 06:17:00 54 Below low normal >=60 (mL/min) Final eGFR is calculated based on the CKD-EPI 2020 equation Sodium 11/09/2023 06:17:00 142 135-146 (m mol/L) Final Potassium 11/09/2023 06:17:00 4.5 3.5-5.1 (m mol/L) Final Cl 11/09/2023 06:17:00 108 Above high normal 98 -107 (mmol/L) Final CO2 11/09/2023 06:17:00 25 22-32 (mmo l/L) Final Anion gap 11/09/2023 06:17:00 9 7-15 (mmol /L) Final Glucose 11/09/2023 06:17:00 104 70-120 (mg /dL) Final Calcium 11/09/2023 06:17:00 8.7 8.4-10.2 ( mg/dL) Final Performing Location [facility]ORY [facility] [place] [address] [place] [address]
--- OUTSIDE RECORDS SUMMARY | 2023-11-19 03:23 | External Medical Summary | Continuity Of Care Document ---
Author Name Unknown Address [address] [place] [address] Organization [facility] Problems Code Description Start Date End Date Status J96.01 Acute respiratory failure with hypoxia 11/06/19 Active I50.31 Acute diastolic (congestive) heart failure 10/16 Active J44.9 Chronic obstructive pulmonary disease, unspecified 11/06/2023 Active N17.9 Acute kidney failure, unspecified 11/06/2023 Active E11.9 Type 2 diabetes mellitus without complications 11/06/2023 Active I25.10 Atherosclerotic hear t disease of [place] coronary artery without angina pectoris 11/06/2023 Active I10. Essential (primary) hypertension 11/06/2023 Active J96.01 Acute respiratory failure with hypoxia 11/06/19 Active VITAL SIGNS Date Time Diastolic blood pressure Systolic blood pressure Body height Body weight Temperature SpO2 Blood Sugar Pulse Respirations 96716 322 13819 1 49.00 mm[Hg] - Sitting 87.00 mm[Hg] - Sitting 157.00 NI 90.00 % 109.00 /min 26.00/min 87025 322 20080 5 31972 323 16474 0 323 15047 3 81.00 mm[Hg] - Sitting 123.00 mm[Hg] - Sitting 97.10 Ear 88.00 % 73.00/ min 24.00/min 98104 323 42709 9 162.00 NI 85421 323 82994 0 90.00 % 04145 324 13037 9 81.00 mm[Hg] - Sitting 123.00 mm[Hg] - Sitting 97.10 Ear 73.00/ min 24.00/min 36307 324 69140 9 70.00 mm[Hg] - Lying Down 110.00 mm[Hg] - Lying Down 98.40 Ear 90.00 % 95.00/ min 24.00/min 17841 325 06299 1 325 16579 0 67 NI 60772 325 65017 3 73.00 mm[Hg] - Sitting 111.00 mm[Hg] - Sitting 96.90 Ear 88.00 % 91.00/ min 24.00/min 326 55130 3 76.00 mm[Hg] - Sitting 132.00 mm[Hg] - Sitting 98.10 Oral 90.00 % 98.00/ min 18.00/min
--- OUTSIDE RECORDS SUMMARY | 2023-11-19 03:23 | External Medical Summary ---
Author Name Unknown Address Unknown Organization [facility] [place] [address] [place] [address] Laboratory Report Ordering Provider Test Date Status YULISSA GERARD 11/09/2023 06:17:00 Final Observation Date Value Abnormality Reference (Units ) Status Nucleated erythrocytes/100 leukocytes [Ratio] in Blood by Automated count 11/09/2023 06:17:00 Final Variant lymphocytes [Presence] in Blood by Light microscopy 11/09/2023 06:17:00 Present Abnormal None Seen Final Performing Location [facility] [place] [address] [place] [address]
--- OUTSIDE RECORDS SUMMARY | 2023-11-19 03:23 | External Medical Summary | Continuity Of Care Document ---
Author Name Unknown Address [address] [place] [address] [facility] ( [facility] VITAL SIGNS Date Time Diastolic blood pressure Systolic blood pressure Body height Body weight Temperature SpO2 Blood Sugar Pulse Respirations 45680 322 14539 1 49.00 mm[Hg] - Sitting 87.00 mm[Hg] - Sitting 157.00 NI 90.00 % 109.00 /min 26.00/min 16676 322 43547 5 36482 323 65365 0 41768 323 03469 3 81.00 mm[Hg] - Sitting 123.00 mm[Hg] - Sitting 97.10 Ear 88.00 % 73.00/ min 24.00/min 49749 323 35306 9 162.00 [place] [address] 323 11494 0 90.00 % 54510 324 66773 9 81.00 mm[Hg] - Sitting 123.00 mm[Hg] - Sitting 97.10 Ear 73.00/ min 24.00/min 11524 324 55808 9 70.00 mm[Hg] - Lying Down 110.00 mm[Hg] - Lying Down 98.40 Ear 90.00 % 95.00/ min 24.00/min 92227 325 89474 1
--- OUTSIDE RECORDS SUMMARY | 2023-11-19 03:23 | External Medical Summary | Summary of Care ---
Author Name Unknown Organization [facility] Address [address] [place] [address] Phone [phone] Care Team Providers Care Computer Forwarding System Markup Clerk Name Role Phone Arun Alexandre MD Primary Care Provider [phone] Encounter Details Date Type Department Care Team (Late st Contact Info) Description 11/09/2023 Orders Only Lab Mobile Phlebotomy [facility] [address] [place] [address] Krista Perez MD [address] [place] [address] [place] [address] DM (diabetes mellitus) ([facility])*; [facility] (current) use of 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s Allergies Active Allergy Reactions Criticality Noted Date [...] OPD, group D, by GOLD 2017 classification ([facility]) Inhale 1 Puff by mouth 2 times a day. 180 Each 3 05/16/2021 Active Montelukast Sodium 10 MG Oral Tablet (Singulair)Indicatio ns:COPD, group D, by GOLD 2017 classification ([facility] [...] Oral Tablet (Coumadin)Indication s:PAF (paroxysmal atrial fibrillation) ([facility]),Anticoagulatio n management encounter,Anticoagul ant long-term use Take 1 Tablet by mouth every evening. 30 Tablet 5 05/22/2023 Active ProAir HFA 108 (90 Base) MCG/ACT Inhalation Aerosol SolutionIndications: COPD, group D, by GOLD 2017 classification ([facility]),SOB (shortness of breath) Inhale 2 Puffs by mouth every 6 hours as needed for Shortness of Breath or Wheezing. 18 g 3 07/03/2023 Active Spironolactone 25 MG Oral Tablet (Aldactone) TAKE ONE-HALF TABLET BY MOUTH IN THE MORNING 45 Tablet 3 10/05/2023 Active Ipratropium [place] 0.02 % Inhalation Solution (Atrovent) Inhale 2.5 [...] Team (Late st Contact Info) Description 11/09/2023 8:10 AM EDT Laboratory Lab Mobile Phlebotomy [address] [place] [address] Arrived 11/11/2023 2:30 PM EDT Anticoagulation Pharmacy, [address] [place] [address] [place] [address] 12/29/2023 10:20 AM EDT Office Visit Pulmonary Medicine, [facility] [address] [facility] [place] [address] Jack Des[facility]za [facility] [address] [facility] [id number] Scheduled Orders Name Type Priority Associated Diagnoses Orde r Schedule CBC WITH WBC DIFFERENTIAL Lab Routine DM (diabetes mellitus) ([facility]) Expected: 11/09/2023, Expires: 11/08/2024 BASIC METABOLIC PANEL Lab Routine DM (diabetes mellitus) ([facility]) Expected: 11/09/2023, Expires: 11/08/2024 PT INR Lab Routine DM (diabetes mellitus) ([facility]) [facility] (current) use of 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s Expected: 11/09/2023, Expires: 11/08/2024 Health Maintenance Due Date Last Done Comments [...] as of this encounter Visit Diagnoses Diagnosis DM (diabetes mellitus) (HCC)- Primary Type II or unspecified type diabetes mellitus without mention of complication, not stated as uncontrolled 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
--- OUTSIDE RECORDS SUMMARY | 2023-11-19 03:23 | External Medical Summary | Continuity Of Care Document ---
Author Name Unknown Address [address] [place] [address] Organization [facility] Problems Code Description Start Date End Date Status J96.01 Acute respiratory failure with hypoxia 11/06/19 Active I50.31 Acute diastolic (congestive) heart failure 10/16 Active J44.9 Chronic obstructive pulmonary disease, unspecified 11/06/2023 Active N17.9 Acute kidney failure, unspecified 11/06/2023 Active E11.9 Type 2 diabetes mellitus without complications 11/06/2023 Active I25.10 Atherosclerotic hear t disease of [place] coronary artery without angina pectoris 11/06/2023 Active I10. Essential (primary) hypertension 11/06/2023 Active J96.01 Acute respiratory failure with hypoxia 11/06/19 Active VITAL SIGNS Date Time Diastolic blood pressure Systolic blood pressure Body height Body weight Temperature SpO2 Blood Sugar Pulse Respirations 33197 322 78437 1 49.00 mm[Hg] - Sitting 87.00 mm[Hg] - Sitting 157.00 NI 90.00 % 109.00 /min 26.00/min 74331 322 61427 5 19438 323 54755 0 323 07972 3 81.00 mm[Hg] - Sitting 123.00 mm[Hg] - Sitting 97.10 Ear 88.00 % 73.00/ min 24.00/min 59029 323 16127 9 162.00 NI 32091 323 96116 0 90.00 % 69776 324 34950 9 81.00 mm[Hg] - Sitting 123.00 mm[Hg] - Sitting 97.10 Ear 73.00/ min 24.00/min 03950 324 71087 9 70.00 mm[Hg] - Lying Down 110.00 mm[Hg] - Lying Down 98.40 Ear 90.00 % 95.00/ min 24.00/min 26643 325 79427 1 325 77291 0 67 NI 84199 325 78962 3 73.00 mm[Hg] - Sitting 111.00 mm[Hg] - Sitting 96.90 Ear 88.00 % 91.00/ min 24.00/min 81736 326 38516 3 76.00 mm[Hg] - Sitting 132.00 mm[Hg] - Sitting 98.10 Oral 90.00 % 98.00/ min 18.00/min 98525 326 97329 0 88.00 % 108.00 /min 22.00/min
--- OUTSIDE RECORDS SUMMARY | 2023-11-19 03:23 | External Medical Summary | Summary of Care ---
Author Name Unknown Organization [facility] Address [address] [place] [address] Phone [phone] Care Team Providers Care Rolls Mill Operator Name Role Phone Arun Alexandre MD Primary Care Provider + [phone] Reason for Visit * Reason Comments Dosage Adjustment Via Phone (anticoag Cl inic) * Evaluate & Treat - Unlimited Visits (Within 3 days (urgent)) - Authorized Specialty Diagnoses / Procedures Referred By Elvia t Referred To Contact [facility] / Pharmacy Diagnoses PAF (paroxysmal atrial fibrillation) (HCC) Anamika Myers PA-C [address] [place] [address] Referral ID Status Reason Start Date Expiration Date Visits Requested Visits Authorized [id number] Authorized Specialty Services Required 11/09/2023 05/07/2024 99 99 Encounter Details Date Type Department Care Team (Latest Contact Info) Description 11/09/2023 5:30 PM EDT Anticoagulation Pharmacy Call Center [address] [place] [address] [facility] [address] [place] [address] PAF (paroxysmal atrial fibrillation) (HCC)*; Anticoagulant long-term use Allergies Active Allergy Reactions [...] MORNING 45 Tablet 3 10/05/2023 Active Ipratropium [place] 0.02 % Inhalation Solution (Atrovent) Inhale 2.5 [...] mouth at bedtime. 0 11/09/2023 Active Tiotropium [place] Monohydrate 18 MCG Inhalation Capsule (Spiriva HandiHaler) [...] of this encounter Progress Notes * Linda Richard, [facility] - 11/09/2023 12:46 PM EDT Medication Therapy Disease Management - Anticoagulation Patient: Dru Rosales Cole | : 1940 Long-Term/SNF Patient Anticoagulation Encounter Patient is a resident at: [facility] -- Fax sent to number listed above detailing plan of care below. Please notify clinic with any unusual brusing or bleeding, N/V/D, medication or diet changes or anymissed or extra doses of Coumadin. Subjective Patient-Reported Symptoms: Patient Findings Positives: Hospital admission Comments: Pt discharged from [facility] to [facility]. Pt was admitted for COPD exacerbation. Pt was discharged on Prednisone, not a significant interaction. Contact [facility] if NVD >24 hours. INR at discharge was 2.2. Pt continued on Warfarin 5mg MF; 2.5mg all other days Objective Current Warfarin Dose As of 11/09/2023 Warfarin maintenance plan: 5 mg (5 mg x 1) every Mon, Fri; 2.5 mg (5 mg x 0.5) all other days INR Result As of 11/09/2023 INR goal: 2.0-3.0 INR used for dosing: No new INR was available at the time of this encounter. Assessment & Plan Warfarin Plan As of 11/09/2023 Full warfarin instructions: 5 mg every Mon, Fri; 2.5 mg all other days Next INR check: 11/11/2023 Repeat PT/INR in 2 day(s) Weekly dose: not changed Additional Dosing Information: Linda Richard RPh Clinical Pharmacist 11/09/2023, 1:07 PM documented in this encounter Plan of Treatment Upcoming Encounters Date Type Department Care Team (Late st Contact Info) Description 11/11/2023 2:30 PM EDT Anticoagulation Pharmacy, [address] [place] [address] [place] [address] 12/29/2023 10:20 AM EDT Office Visit Pulmonary Medicine, [facility] [address] [facility] [place] [address] Jack Desouza MD [address] [facility] [address] Scheduled Referrals Name Type Priority Associated Diagnoses [...] 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s documented in this encounter Care Teams Rolls Mill Operator Relationship Specialty Start Date End Date Arun Alexandre MD [address] [place] [address] PCP - General Family Medicine 05/17/18 documented as of this encounter"
--- OUTSIDE RECORDS SUMMARY | 2023-11-19 03:23 | External Medical Summary ---
Author Name Unknown Address Unknown Organization [facility] [address] [place] [address] Laboratory Report Ordering Provider Test Date Status YULISSA GERARD 11/09/2023 06:17:00 Final Observation Date Value Abnormality Reference (Units ) Status SYNC LEUKOCYTES IN BLOOD BY AUTOMATED COUNT 11/09/2023 06:17:00 11.91 Above high normal 4.00-10.80 (K/uL) Final Segs 11/09/2023 06:17:00 63.6 40.0-75.0 (%) Final Lymphs % 11/09/2023 06:17:00 28.0 18.0-42.0 (%) Final Monos 11/09/2023 06:17:00 7.6 1.0-11.0 (%) Final Eosinophils 11/09/2023 06:17:00 0.6 0.0-6.0 (%) Final Basos 11/09/2023 06:17:00 0.2 0.0-2.0 (%) Final Absolute Segs 11/09/2023 06:17:00 7.57 1.80-7.70 (K/uL) Final Lymphs, absolute 11/09/2023 06:17:00 3.34 1.00-4.80 (K/ul) Final Monos, Abs 11/09/2023 06:17:00 0.91 0.00-1.10 (K/uL) Final Eos, Abs 11/09/2023 06:17:00 0.07 0.00-0.70 (K/uL) Final Basos, Abs 11/09/2023 06:17:00 0.02 0.00-0.20 (K/uL) Final Performing Location [facility] [address] [place] [address]
[2023-11-19] MEDS: INSULIN ASPART PER UNIT CHARGE SC SCH ×2 (06:15→21:04)
[2023-11-19 06:26] LABS: Basophils # (auto) 0.01 K/uL (0.00-0.20); Basophils % (auto) 0.1 %; Eosinophils # (auto) 0.01 K/uL (0.00-0.50); Eosinophils % (auto) 0.1 %; Hematocrit (blood only) 38.5 % (42.0-52.0); Hemoglobin 12.7 g/dl (14.0-18.0); Immature Granulocytes # (auto) 0.14 K/uL (0.01-0.20); Immature Granulocytes % (auto) 1.4 %; Lymphocytes # (auto) 0.95 K/uL (1.20-3.40); Lymphocytes % (auto) 9.3 %; Mean Corpuscular Hemoglobin 30.3 pg (25.0-34.0); Mean Corpuscular Volume 91.9 fL (80.0-100.0); Monocytes # (auto) 0.29 K/uL (0.11-0.59); Monocytes % (auto) 2.8 %; Neutrophils # (auto) 8.78 K/uL (1.40-6.50); Neutrophils % (auto) 86.3 %; Platelet Count 139 K/uL (130-400); RDW Coefficient of Variation 21.2 % (11.5-14.5); RDW Standard Deviation 70.5 fL (36.4-46.3); Red Blood Count 4.19 M/uL (4.70-6.10); White Blood Count 10.18 K/ul (4.8-10.8)
[2023-11-19 06:49] LABS: Anisocytosis Present; Polychromasia 1+
[2023-11-19 06:58] LABS: Albumin Level 3.3 gm/dl (3.4-5.0); Bilirubin,Total 0.7 mg/dl (0.2-1.0); Calcium 8.7 mg/dl (8.6-10.3); Potassium 4.6 mmol/L (3.5-5.1)
[2023-11-19 06:59] LABS: INR 2.8 (0.9-1.1); Prothrombin Time 28.7 Seconds (9.0-12.0)
[2023-11-19 07:04] LABS: Albumin Globulin Ratio 1.3 (0.9-2); BUN Creatinine Ratio 27.8 (10-20); Est GFR (African American) 73.7 ml/min; Est GFR (Non-African American) 63.6 ml/min; Globulin 2.6 gm/dl (2.5-4.0); Total Protein 5.9 gm/dl (6.0-8.3)
--- OUTSIDE RECORDS SUMMARY | 2023-11-19 08:39 | External Medical Summary | Summary of Care ---
Author Name Unknown Organization [facility] Address [address] [place] [address] Phone [phone] Care Team Providers Care Funeral Pre Arrangement Counselor Name Role Phone Arun Alexandre MD Primary Care Provider [phone] Reason for Visit * Reason Onset Date Comments Complicated Acute Visit 11/18/2023 Encounter Details Date Type Department Care Team (Latest Contact Info) Description 11/18/2023 6:00 AM EDT Assisted Visit [facility] [address] [employer] [address] Anamika Myers PA-C [address] [place] [address] Acute on chronic respiratory failure with hypoxia ([facility])*; COPD, group D, by GOLD 2017 classification ([facility]); PAF (paroxysmal atrial fibrillation) ([facility]); Type 2 diabetes mellitus with stage 3a chronic kidney disease, without long-term current use of insulin ([facility]) Allergies [...] PD, group D, by GOLD 2017 classification ([facility]) Inhale 1 Puff by mouth 2 times a day. 180 Each 3 05/16/2021 Active Montelukast Sodium 10 MG Oral Tablet (Singulair)Indication s:COPD, group D, by GOLD 2017 classification ([facility] [...] Oral Tablet (Coumadin)Indications :PAF (paroxysmal atrial fibrillation) ([facility]),Anticoagulation management encounter,Anticoagula nt long-term use Take 1 Tablet by mouth every evening. 30 Tablet 5 05/22/2023 Active Spironolactone 25 MG Oral Tablet (Aldactone) TAKE ONE-HALF TABLET BY MOUTH IN THE MORNING 45 Tablet 3 10/05/2023 Active Ipratropium [place] 0.02 % Inhalation Solution (Atrovent) Inhale 2.5 [...] in the morning. 0 11/09/2023 Active Tiotropium [place] Monohydrate 18 MCG Inhalation Capsule (Spiriva HandiHaler) [...] PM EDT Anticoagulation Pharmacy Call Center [address] [facility] [place] [address] [facility] [address] [facility] [place] [address] 12/29/2023 10:20 AM EDT Office Visit Pulmonary Medicine, [facility] [address] [facility] [place] [address] Jack Desouza MD [address] [facility] [place] [address] Health Maintenance Due Date Last Done Comments HbA1c 1946 Pneumococcal Vaccine: 65+ Years (1 of 2 - PCV) 1946 Depression Screening 1953 Albumin/Creatinine Ratio 1959 CKD PHOS USE SMARTSET 25904 1959 Diabetic Eye Exam 1959 Diabetic Foot Exam 1959 DTaP,Tdap,and Td Vaccines (1 - Tdap) 1960 Zoster Vaccines (1 of 2) 1991 *ADVANCE DIRECTIVE NOT ON FILE 05/13/2020 COVID-19 Vaccine (3 - season) 2023 10/12/2020, 09/14/2020 GFR 05/13/2024 11/11/2023, 10/16, 01/06/2022, Additional history exists O2 ASSESSMENT COMPLETED IN PAST YEAR FOR COPD 10/27/2024 10/28/2023 CKD HGB USE SMARTSET 14856 11/08/202411/08, 11/09/2023, 05/22/2023, Additional history exists Alpha-1 [...] (HCC) documented in this encounter Care Teams Funeral Pre Arrangement Counselor Relationship Specialty Start Date End Date Arun Alexandre MD [address] [place] [address] PCP - General Family Medicine 05/17/18 documented as of this encounter
--- OUTSIDE RECORDS SUMMARY | 2023-11-19 08:40 | External Medical Summary | Summary of Care ---
Author Name Unknown Organization [facility] Address [address] [place] [address] Phone [phone] Care Team Providers Care Sausage Wrapper Name Role Phone Arun Alexandre MD Primary Care Provider [phone] Reason for Visit * Reason Onset Date Comments Complicated Acute Visit 11/18/2023 Encounter Details Date Type Department Care Team (Latest Contact Info) Description 11/18/2023 6:00 AM EDT Senior Care Visit [facility] [address] [place] [address] Anamika Myers PA-C [address] [place] [address] Acute on chronic respiratory failure with hypoxia ([facility])*; COPD, group D, by GOLD 2017 classification ([facility]); PAF (paroxysmal atrial fibrillation) ([facility]); Type 2 diabetes mellitus with stage 3a chronic kidney disease, without long-term current use of insulin ([facility]) Allergies Active Allergy Reactions Criticality [...] (Coumadin)Indications :PAF (paroxysmal atrial fibrillation) ([facility]),Anticoagulation management encounter,Anticoagula nt long-term use Take 1 Tablet by mouth every evening. 30 Tablet 5 05/22/2023 Active Spironolactone 25 MG Oral Tablet (Aldactone) TAKE ONE-HALF TABLET BY MOUTH IN THE MORNING 45 Tablet 3 10/05/2023 Active Ipratropium [place] 0.02 % Inhalation Solution (Atrovent) Inhale 2.5 [...] in the morning. 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), squamous cell carcinoma in situ (L [...] cell carcinoma of s kin of left lutheran 07/01/2019 09/28/2019 Squamous cell carcinoma in s [...] PM EDT Anticoagulation Pharmacy Call Center [address] [facility] [place] [address] [facility] [address] [facility] [place] [address] 12/29/2023 10:20 AM EDT Office Visit Pulmonary Medicine, [facility] 132 [facility] [place] [address] Jack Desouza MD [address] [facility] [place] [address] Health Maintenance Due Date Last Done Comments HbA1c 1946 Pneumococcal Vaccine: 65+ Years (1 of 2 - PCV) 1946 Depression Screening 1953 Albumin/Creatinine Ratio 1959 CKD PHOS USE SMARTSET 87103 1959 Diabetic Eye Exam 1959 Diabetic Foot Exam 1959 DTaP,Tdap,and Td Vaccines (1 - Tdap) 1960 Zoster Vaccines (1 of 2) 1991 *ADVANCE DIRECTIVE NOT ON FILE 05/13/2020 COVID-19 Vaccine (3 - season) 2023 10/12/2020, 09/14/2020 GFR 05/13/2024 11/11/2023, 10/16, 01/06/2022, Additional history exists O2 ASSESSMENT COMPLETED IN PAST YEAR FOR COPD 10/27/2024 10/28/2023 CKD HGB USE SMARTSET 21400 11/08/202411/08, 11/09/2023, 05/22/2023, Additional history exists Alpha-1 [...] (HCC) documented in this encounter Care Teams Sausage Wrapper Relationship Specialty Start Date End Date Arun Alexandre MD [address] [place] [address] PCP - General Family Medicine 05/17/18 documented as of this encounter
[2023-11-19] MEDS ORDERED: FUROSEMIDE 20 MG TAB PO SCH (09:00)
[2023-11-19] MEDS ORDERED: METOPROLOL SUCC 50MG EXT REL TAB PO SCH (09:00)
[2023-11-19] MEDS: dilTIAZem HCL 30 MG TAB PO SCH (09:02)
[2023-11-19] MEDS: FUROSEMIDE 40 MG/4 ML VIAL IV SCH (09:02)
[2023-11-19] MEDS: UMECLIDINIUM BROMIDE 62.5MCG/BLISTER 7 PUFFS/INHALER INH SCH (09:05)
[2023-11-19] MEDS: CEROVITE ADV FORMULA TAB PO SCH (09:05)
[2023-11-19] MEDS: SPIRONOLACTONE 12.5 MG TAB PO SCH (09:05)
[2023-11-19] MEDS: MONTELUKAST SODIUM 10 MG TABLET PO SCH (09:06)
[2023-11-19] MEDS: CHOLECALCIFEROL 25 MCG (1000 UNITS) TAB PO SCH (09:06)
[2023-11-19] MEDS: ATORVASTATIN 10 MG TAB PO SCH (09:06)
--- NOTE | 2023-11-19 12:48 | Hospitalist Progress Note ---
Date of Service November 19, 2023 Assessment & Plan (1) COVID-19: Plan: Positivity by nasal swab. No symptoms of acute viral illness at the time. Supportive care. No indication for remdesivir which has been discontinued. (2) Acute and chronic respiratory failure with hypoxia: Plan: Currently 93% on 7 L oxygen. This appears to be related to underlying CHF. Will wean oxygen back to his baseline as tolerated. (3) COPD exacerbation: Plan: Due to CHF. Continue Lasix diuresis. No overt evidence of pneumonia (4) Type 2 diabetes mellitus: Plan: Hemoglobin A1c 6.9 in October. ADA diet. Continue Farxiga. Sliding scale coverage (5) CHF (congestive heart failure): Plan: Suspected acute on chronic diastolic CHF. Lasix diuresis. Serial chest x-ray. Monitor intake and output. (6) Atrial fibrillation with RVR: Plan: Telemetry. Metoprolol switched to diltiazem. Recent cardiac echo done last month reveals left ventricular hypertrophy with normal ejection fraction and evidence of chronic cor pulmonale. Continue Coumadin. INR 2.8 today, November 18 Plan Hopeful discharge to home within the next 24 to 48 hours Admission and Anticipated Discharge Date Admission Date: November 18, 2023 Subjective Alert and oriented. He states he came to the ER because he was short of breath. Chest x-ray reveals COPD but I believe he has acute on chronic diastolic CHF. COVID positivity by nasal swab but no symptoms of a viral illness at this time. This could have been positive for quite some time but there does not appear to be anything acute. He has atrial fibrillation with rapid ventricular rate and his metoprolol has been switched over to diltiazem. He is now on parenteral Lasix diuresis. Remdesivir has been discontinued. Will repeat portable chest x-ray again tomorrow, November 19 Review of Systems 2 Review of Systems: Constitutional-no fever or chills ENT-no blurred vision, no double vision, no epistaxis, no sore throat Respiratory-no cough, no wheezing. Exertional dyspnea Cardiac-no palpitations, no chest pain, no syncope GI-no nausea, vomiting, diarrhea, melena, hematochezia -no urinary retention, no urinary incontinence, no dysuria, no hematuria Musculoskeletal-no joint pain, no muscle tenderness Skin-no bruising, no rashes, no pruritus Neuro-no isolated weakness, no paresthesia Psych-no depression, no anxiety Physical Exam 2 Physical Exam: General-alert and oriented x3, no fever, no chills HEENT-head atraumatic and normocephalic, pupils equal and reactive to light, extraocular muscles intact Neck-no lymphadenopathy or thyromegaly, trachea midline Chest-diminished breath sounds bilaterally. No rhonchi. No dullness. No wheezing. i Cardiac-rapid irregular rate and rhythm. Normal S1 and S2 Abdomen-normal bowel sounds, nontender, no hepatosplenomegaly Extremities-no cyanosis, clubbing, or edema Neuro-cranial nerves II through XII intact, motor and sensory function within normal limits, strength symmetrical, no focal deficits Psych-normal affect, normal mood Results & Data Results & Data Vital Signs (Past 12 Hours) Vital Signs Temp Pulse Pulse Resp BP Pulse Ox O2 Del Method 11/19/23 12:27 36.3 C L 120 H 18 112/64 96 Oxymask 11/19/23 11:27 113 H 16 89 L Oxymask 11/19/23 08:00 97 H 20 96 Oxymask 11/19/23 07:47 Oxymask 11/19/23 07:44 36.3 C L 106 H 18 116/70 96 Oxymask 11/19/23 02:46 94 H 18 93 Oxymask 11/19/23 02:37 36.5 C 89 18 126/81 94 Oxymask O2 Flow Rate 11/19/23 12:27 11/19/23 11:27 7 11/19/23 08:00 7 11/19/23 07:47 7 11/19/23 07:44 7 11/19/23 02:46 7 11/19/23 02:37 7 Laboratory Results 11/19/23 06:07 11/19/23 06:06 PG Care Time/CCT Total # of Minutes Spent Total Time Spent with Patient: Total time spent is greater than 50% in coordination of care (as documented) at patient's floor/unit and/or counseling patient: Coding Level of Care Code 74725 SUB INP/OBS CARE 3/50MIN Diagnoses COVID-19 U07.1 Acute and chronic respiratory failure with hypoxia J96.21 COPD exacerbation J44.1 Type 2 diabetes mellitus E11.9 CHF (congestive heart failure) I50.9 Atrial fibrillation with RVR I48.91
[2023-11-19] MEDS ORDERED: dilTIAZem HCl 5 MG/ML 5 ML VIAL IV PRN (13:32)
[2023-11-19] MEDS: dilTIAZem HCl 5 MG/ML 5 ML VIAL IV STA (13:59)
--- NOTE | 2023-11-19 15:42 | Pulmonary Consultation ---
Date of Consultation November 19, 2023 Assessment & Plan (1) CHF (congestive heart failure): Patient with acute on chronic diastolic heart failure and cor pulmonale secondary to COPD. Agree with diuresis as able. Echo from 10/29/2023 noted with evidence of dilated RV and grade 1 diastolic dysfunction. Heart failure type: right-sided Heart failure chronicity: acute on chronic Qualified Code(s): I50.813 - Acute on chronic right heart failure (2) COPD exacerbation: Agree with treatment for possible COPD exacerbation. Currently on 6 mg of IV dexamethasone. Can transition to p.o. prednisone at a dose of 40 mg daily for 5 days total. I would recommend engaging with palliative care services given his end-stage COPD and recurrent hospitalizations. (3) Lab test positive for detection of COVID-19 virus: No role for antiviral therapy or immunosuppressive therapy at this time as he is several days out from initial COVID-19 positivity. He also has other reasons to explain his hypoxemia including severe COPD at baseline and cor pulmonale. Plan No further recommendations at this time from pulmonary perspective. Thank you for the consult. Please call with questions. History of Present Illness Reason for Consultation: COVID ?Baricitinib, severe COPD Attending Physician: Earl Aaron MD History of Present Illness 83-year-old male with a history of end-stage COPD on chronic supplemental oxygen therapy at 5 L/min presenting to the hospital due to increasing shortness of breath for the past 2 to 3 days. Patient reportedly tested positive for COVID- 19 as an outpatient in his nursing facility and also tested positive yesterday on admission. Chest x-ray revealed bilateral pulmonary edema and advanced emphysematous changes. Patient denies any significant cough. Patient without fever. He was started on remdesivir and pulmonary was consulted for opinion on the use of baricitinib. Allergies Allergy/AdvReac Type Severity Reaction Status Date / Time pollen extracts Allergy Mild Sneezing Verified 11/18/23 15:33 Home Medications Medication Instructions Recorded Confirmed Type atorvastatin 10 mg tablet 10 mg PO QAM 04/07/19 11/18/23 History fluticasone 250 mcg-salmeterol 50 1 inh inhalation BID 04/07/19 11/18/23 History mcg/dose blistr powdr for inhalation (Advair Diskus) montelukast 10 mg tablet 10 mg PO QAM 05/10/20 11/18/23 History xhjfjzxuxegz-hndbkdrt-fyiryz tablet 1 tab PO DAILY 04/05/23 11/18/23 History vit C 250 mg-vit E 90 mg-zinc 40 2 tab PO QAM 04/05/23 11/18/23 History mg-copper 1 lp-balvog-xpqkhi capsule (PreserVision AREDS-2) Oxygen Home E0424 #1 ea 04/14/23 Rx furosemide 20 mg tablet 20 mg PO QAM #30 tabs 04/14/23 11/18/23 Rx metoprolol succinate 50 mg 50 mg PO QAM #30 tabs 04/14/23 11/18/23 Rx tablet,extended release 24 hr albuterol sulfate 90 mcg/actuation 2 puff inhalation Q6H PRN 10/29/23 11/18/23 History aerosol inhaler sob/wheezing cholecalciferol (vitamin D3) 50 50 mcg PO DAILY 10/29/23 11/18/23 History mcg (2,000 unit) capsule (Vitamin D3) dapagliflozin propanediol 10 mg 10 mg PO QAM 10/29/23 11/18/23 History tablet (Farxiga) guaifenesin 600 mg tablet, 1,200 mg PO Q12H PRN Mucus 10/29/23 11/18/23 History extended release 12 hr (Mucinex) hydroxyzine HCl 10 mg tablet 10 mg PO TID PRN anxiety 10/29/23 11/18/23 History melatonin 3 mg tablet 3 mg PO HS PRN Sleep 10/29/23 11/18/23 History metformin 500 mg tablet 500 mg PO BID 10/29/23 11/18/23 History spironolactone 25 mg tablet 12.5 mg PO QAM 10/29/23 11/18/23 History tiotropium bromide 2.5 1 puff inhalation BID 10/29/23 11/18/23 History mcg/actuation mist for inhalation (Spiriva Respimat) trazodone 50 mg tablet 50 mg PO HS PRN Sleep 10/29/23 11/18/23 History prednisone 5 mg tablet 5 mg PO QAM 11/18/23 11/18/23 History warfarin 5 mg tablet See Rx Instructions .Route .COMPLEX 11/18/23 11/18/23 History Patient History Medical History (Updated 11/19/23 @ 15:40 by Dheeraj Rosas MD) Lab test positive for detection of COVID-19 virus DVT prophylaxis Lower extremity edema Food impaction of esophagus COPD (chronic obstructive pulmonary disease) CAD (coronary artery disease) Dyslipidemia HTN (hypertension) Emphysema of lung Family History Other Family history non-contributory Social History Smoking Status: Former smoker Tobacco Type: Cigarettes and Smokeless Tobacco (Dip or Chew) Smoking End Date: 1978; Second Hand Exposure: No; Do You Dip or Chew Tobacco: Yes; Hx Alcohol Use: No Hx Substance Use: No Preferred Language: Pashto Communication Ability: Effective Alarm Installer Required: No Beliefs That Will Affect Care: None marital status: Current Living Situation: Rehab Current Living Situation Comment: lives at home with , son checks in regularly current occupational status: retired Other Information That Helps Us Care for You: No Feels Safe at Home: Yes Safety Concerns: Feels Safe At This Time Assistive Devices: Cane, Oxygen - at Night, Oxygen - Continuous, Walker and Wheelchair Review of Systems Review of Systems: All systems reviewed & are unremarkable except as noted in HPI & below Physical Exam Physical Exam: Constitutional: Patient appears to be of their stated age. Elderly and frail appearing male. Eyes: Pupils are equal round and reactive to light. Conjunctivae are normal. Anicteric sclera. Ears nose, mouth and throat: Mallampati class 2. Normal posterior oropharynx. Uvula is midline. Neck: Trachea is midline. Visual inspection is normal. Respiratory: Tachypneic. Prolonged phase of exhalation. No wheezes. Cardiovascular: Regular rate and rhythm. No murmurs. No edema. Gastrointestinal: Normal bowel sounds, soft, nontender and nondistended. No hepatosplenomegaly noted. Musculoskeletal: No cyanosis. Patient is able to move all extremities. Strength is 5 out of 5 in the upper and lower extremities. Skin: No rashes, warm dry and intact. Neurologic: No obvious focal neurological deficits seen. Psychiatric: Alert and oriented x3 with a euthymic affect. Results & Data Results & Data Vital Signs (Past 12 Hours) Vital Signs Temp Pulse Pulse Resp BP Pulse Ox O2 Del Method 11/19/23 13:59 36.3 C L 120 H 34 H 113/68 95 Oxymask 11/19/23 12:27 36.3 C L 120 H 18 112/64 96 Oxymask 11/19/23 11:27 113 H 16 89 L Oxymask 11/19/23 08:00 97 H 20 96 Oxymask 11/19/23 07:47 Oxymask 11/19/23 07:44 36.3 C L 106 H 18 116/70 96 Oxymask O2 Flow Rate 11/19/23 13:59 7 11/19/23 12:27 11/19/23 11:27 7 11/19/23 08:00 7 11/19/23 07:47 7 11/19/23 07:44 7 PG Care Time/CCT Total # of Minutes Spent Total Time Spent with Patient: Total time spent is greater than 50% in coordination of care (as documented) at patient's floor/unit and/or counseling patient: Coding Level of Care Code 60471 INT INP/OBS CARE 2/55MIN Diagnoses Acute on chronic right-sided congestive heart failure I50.813 Heart failure type: right-sided Heart failure chronicity: acute on chronic COPD exacerbation J44.1 Lab test positive for detection of COVID-19 virus U07.1
[2023-11-19] MEDS ORDERED: Nursing to Pharmacy Communication SCH (19:00)
[2023-11-19] MEDS: dilTIAZem HCl 60 MG TAB PO SCH (19:50)
[2023-11-19] MEDS ORDERED: REMDESIVIR 100 MG in SODIUM CHLORIDE 0.9% 230 ML IV SCH (20:00)
[2023-11-20] MEDS: traZODone HCL 50 MG TAB PO PRN (02:06)
[2023-11-20] MEDS: MELATONIN 3 MG TAB PO PRN (02:06)
[2023-11-20 06:55] LABS: Calcium 8.8 mg/dl (8.6-10.3); Creatinine Clr Calc Pharmacy 43.7 ml/min; Est GFR (African American) 61.2 ml/min; Est GFR (Non-African American) 52.8 ml/min; Potassium 4.5 mmol/L (3.5-5.1)
--- NOTE | 2023-11-20 10:49 | XRay Report ---
XR chest 1V portable CLINICAL HISTORY: CHF, COPD COMPARISON STUDY: Chest CT April 08, 2023. Chest radiograph November 18, 2023. FINDINGS: There is no pneumothorax. Small bilateral pleural effusions and associated bibasilar opacit ies are present. Interstitial thickening persists. There is underlying emphysema. Cardiomediastinal s ilhouette is stable. IMPRESSION: 1. Persistent pulmonary edema with small bilateral pleural effusions and associated bibasilar opaciti es. 2. Emphysema. ACT 112: Negative or not required by law. Electronically signed by: Josias Louis M.D. 11/20/2023 10:48 AM
[2023-11-20 12:54] LABS: Prothrombin Time 21.3 Seconds (9.0-12.0)
--- NOTE | 2023-11-20 15:01 | Hospitalist Progress Note ---
Date of Service November 20, 2023 Assessment & Plan (1) COVID-19: Plan: Positivity by nasal swab. No symptoms of acute viral illness at the time. Supportive care. No indication for remdesivir which has been discontinued. (2) Acute and chronic respiratory failure with hypoxia: Plan: Currently 97% on 8 L oxygen. Communication order entered to decrease oxygen to maintain saturation in the 90 to 92% range. He apparently uses 5 L of oxygen at rest and 7 L with ambulation. (3) COPD exacerbation: Plan: Due to CHF. Improving. Continue Lasix diuresis. No overt evidence of pneumonia (4) Type 2 diabetes mellitus: Plan: Hemoglobin A1c 6.9 in October. ADA diet. Continue Farxiga. Sliding scale coverage (5) CHF (congestive heart failure): Plan: Suspected acute on chronic diastolic CHF. Improving with Lasix diuresis. Serial chest x-ray. Monitor intake and output. (6) Atrial fibrillation with RVR: Plan: Telemetry. Metoprolol has been switched to diltiazem. Recent cardiac echo done last month reveals left ventricular hypertrophy with normal ejection fraction and evidence of chronic cor pulmonale. Continue Coumadin. INR 2.0 todayNovember 19 Plan Hopeful discharge to home within the next 24 to 48 hours . OT and PT assessments requested Admission and Anticipated Discharge Date Admission Date: November 18, 2023 Subjective Alert and oriented. No distress. I's and O's -1300 cc on parenteral Lasix every 12. Oxygen saturation 97% on 8 L. He uses 5 L oxygen at rest and 7 L with exertion. Nurses instructed to minimize oxygen to keep saturation in the 90 to 92% range. Chest x-ray done today, November 19, looks better. INR 2.0 todayNovember 19. OT and PT assessments requested Review of Systems 2 Review of Systems: Constitutional-no fever or chills ENT-no blurred vision, no double vision, no epistaxis, no sore throat Respiratory-no cough, no wheezing. Exertional dyspnea Cardiac-no palpitations, no chest pain, no syncope GI-no nausea, vomiting, diarrhea, melena, hematochezia -no urinary retention, no urinary incontinence, no dysuria, no hematuria Musculoskeletal-no joint pain, no muscle tenderness Skin-no bruising, no rashes, no pruritus Neuro-no isolated weakness, no paresthesia Psych-no depression, no anxiety Physical Exam 2 Physical Exam: General-alert and oriented x3, no fever, no chills HEENT-head atraumatic and normocephalic, pupils equal and reactive to light, extraocular muscles intact Neck-no lymphadenopathy or thyromegaly, trachea midline Chest-diminished breath sounds bilaterally. No rhonchi. No dullness. No wheezing. i Cardiac-rapid irregular rate and rhythm. Normal S1 and S2 Abdomen-normal bowel sounds, nontender, no hepatosplenomegaly Extremities-no cyanosis, clubbing, or edema Neuro-cranial nerves II through XII intact, motor and sensory function within normal limits, strength symmetrical, no focal deficits Psych-normal affect, normal mood Results & Data Results & Data Vital Signs (Past 12 Hours) Vital Signs Temp Pulse Resp BP BP Pulse Ox O2 Del Method 11/20/23 12:32 36.3 C L 95 H 20 127/77 97 High Flow Nasal Cannula 11/20/23 10:49 102 H 21 92 Nasal Cannula 11/20/23 10:16 93 High Flow Nasal Cannula 11/20/23 10:14 98 High Flow Nasal Cannula 11/20/23 09:44 96/54 L 97/59 L 11/20/23 08:22 36.3 C L 113 H 27 H 112/62 698 H High Flow Nasal Cannula O2 Flow Rate 11/20/23 12:32 11/20/23 10:49 8 11/20/23 10:16 8 11/20/23 10:14 12 11/20/23 09:44 11/20/23 08:22 Laboratory Results 11/19/23 06:07 11/20/23 05:56 PG Care Time/CCT Total # of Minutes Spent Total Time Spent with Patient: Total time spent is greater than 50% in coordination of care (as documented) at patient's floor/unit and/or counseling patient: Coding Level of Care Code 97531 SUB INP/OBS CARE 3/50MIN Diagnoses COVID-19 U07.1 Acute and chronic respiratory failure with hypoxia J96.21 COPD exacerbation J44.1 Type 2 diabetes mellitus E11.9 Acute on chronic right-sided congestive heart failure I50.813 Heart failure chronicity: acute on chronic Heart failure type: right-sided Atrial fibrillation with RVR I48.91 (5) CHF (congestive heart failure) Heart failure chronicity: acute on chronic Heart failure type: right-sided Qualified Code(s): I50.813 - Acute on chronic right heart failure
[2023-11-20] MEDS ORDERED: WARFARIN SOD 5 MG TAB PO SCH (16:00)
--- NOTE | 2023-11-21 00:56 | Electrocardiogram Report ---
Test Reason : Blood Pressure : / mmHG Vent. Rate : 115 BPM Atrial Rate : 000 BPM P-R Int : 000 ms QRS Dur : 074 ms QT Int : 330 ms P-R-T Axes : 000 061 256 degrees QTc Int : 456 ms Atrial fibrillation with rapid ventricular response with premature ventricular or aberrantly conducte d complexes Nonspecific ST abnormality Abnormal ECG When compared with ECG of 29-OCT-2023 11:33, Nonspecific T wave abnormality now evident in Inferior leads Confirmed by Tyler Haro ([id number]) on 11/21/2023 12:56:18 AM Referred By: REFERRED SELF Confirmed By:Tyler Haro
[2023-11-21 07:03] LABS: BUN Creatinine Ratio 31.5 (10-20); Creatinine Clr Calc Pharmacy 41.2 ml/min; Est GFR (African American) 58.9 ml/min; Est GFR (Non-African American) 50.8 ml/min; Potassium 4.1 mmol/L (3.5-5.1)
[2023-11-21 07:12] LABS: INR 1.5 (0.9-1.1); Prothrombin Time 15.7 Seconds (9.0-12.0)
[2023-11-21] MEDS: WARFARIN SOD 5 MG TAB PO ONE (11:45)
[2023-11-21] MEDS: dilTIAZem HCL 240 MG CAPCR PO SCH (11:46)
--- NOTE | 2023-11-21 12:27 | Hospitalist Progress Note ---
Date of Service November 21, 2023 Assessment & Plan (1) COVID-19: Plan: Positivity by nasal swab. No symptoms of acute viral illness at the time. Supportive care. No indication for remdesivir which has been discontinued. (2) Acute and chronic respiratory failure with hypoxia: Plan: Oxygen requirements continue to decrease to baseline. He apparently uses 5 L of oxygen at rest and 7 L with ambulation. (3) COPD exacerbation: Plan: Due to CHF. Improving. Continue Lasix diuresis. No overt evidence of pneumonia (4) Type 2 diabetes mellitus: Plan: Hemoglobin A1c 6.9 in October. ADA diet. Continue Farxiga. Sliding scale coverage (5) CHF (congestive heart failure): Plan: Suspected acute on chronic diastolic CHF. Improving with Lasix diuresis. Serial chest x-ray. Monitor intake and output. (6) Atrial fibrillation with RVR: Plan: Telemetry. Metoprolol has been switched to diltiazem. Recent cardiac echo done last month reveals left ventricular hypertrophy with normal ejection fraction and evidence of chronic cor pulmonale. INR is somewhat subtherapeutic at 1.5. Coumadin 5 mg ordered today, November 20. Will follow. Plan Possible discharge back to [facility] tomorrow, November 21, since he has a bed hold there. Admission and Anticipated Discharge Date Admission Date: November 18, 2023 Subjective Alert and oriented. No distress. He is anxious to return to [facility] where he has a bed hold. INR is down to 1.5. Coumadin 5 mg ordered this morning. Will repeat chest x-ray again tomorrow, November 21. Significant urine output with parenteral Lasix. Oxygen requirements continue to decrease. Short acting diltiazem switch to long-acting formulation todayNovember 20 Review of Systems 2 Review of Systems: Constitutional-no fever or chills ENT-no blurred vision, no double vision, no epistaxis, no sore throat Respiratory-no cough, no wheezing. Exertional dyspnea Cardiac-no palpitations, no chest pain, no syncope GI-no nausea, vomiting, diarrhea, melena, hematochezia -no urinary retention, no urinary incontinence, no dysuria, no hematuria Musculoskeletal-no joint pain, no muscle tenderness Skin-no bruising, no rashes, no pruritus Neuro-no isolated weakness, no paresthesia Psych-no depression, no anxiety Physical Exam 2 Physical Exam: General-alert and oriented x3, no fever, no chills HEENT-head atraumatic and normocephalic, pupils equal and reactive to light, extraocular muscles intact Neck-no lymphadenopathy or thyromegaly, trachea midline Chest-diminished breath sounds bilaterally. No rhonchi. No dullness. No wheezing. Cardiac-controlled irregular rate and rhythm. Normal S1 and S2 Abdomen-normal bowel sounds, nontender, no hepatosplenomegaly Extremities-no cyanosis, clubbing, or edema Neuro-cranial nerves II through XII intact, motor and sensory function within normal limits, strength symmetrical, no focal deficits Psych-normal affect, normal mood Results & Data Results & Data Vital Signs (Past 12 Hours) Vital Signs Temp Pulse Resp BP BP Pulse Ox O2 Del Method 11/21/23 11:57 93 High Flow Nasal Cannula 11/21/23 11:50 36.4 C L 79 28 H 113/65 93 High Flow Nasal Cannula 11/21/23 11:16 78 22 96 Nasal Cannula 11/21/23 08:55 127/75 11/21/23 08:38 36.3 C L 106 H 24 97/59 L 88 L Nasal Cannula 11/21/23 08:00 Nasal Cannula 11/21/23 07:27 88 20 99 Nasal Cannula 11/21/23 02:30 78 L High Flow Nasal Cannula 11/21/23 02:30 36.7 C 92 H 24 115/73 93 High Flow Nasal Cannula 11/21/23 01:10 97 High Flow Nasal Cannula 11/21/23 00:30 99 High Flow Nasal Cannula O2 Flow Rate 11/21/23 11:57 7 11/21/23 11:50 7 11/21/23 11:16 7 11/21/23 08:55 11/21/23 08:38 5.0 11/21/23 08:00 11/21/23 07:27 7 11/21/23 02:30 2 11/21/23 02:30 6 11/21/23 01:10 4 11/21/23 00:30 8 Laboratory Results 11/19/23 06:07 11/21/23 05:55 PG Care Time/CCT Total # of Minutes Spent Total Time Spent with Patient: Total time spent is greater than 50% in coordination of care (as documented) at patient's floor/unit and/or counseling patient: Coding Level of Care Code 87742 SUB INP/OBS CARE Diagnoses COVID-19 U07.1 Acute and chronic respiratory failure with hypoxia J96.21 COPD exacerbation J44.1 Type 2 diabetes mellitus E11.9 Acute on chronic right-sided congestive heart failure I50.813 Heart failure chronicity: acute on chronic Heart failure type: right-sided Atrial fibrillation with RVR I48.91 (5) CHF (congestive heart failure) Heart failure chronicity: acute on chronic Heart failure type: right-sided Qualified Code(s): I50.813 - Acute on chronic right heart failure
[2023-11-22 05:30] LABS: BUN Creatinine Ratio 36.1 (10-20); Calcium 8.9 mg/dl (8.6-10.3); Creatinine Clr Calc Pharmacy 40.3 ml/min; Est GFR (African American) 57.3 ml/min; Est GFR (Non-African American) 49.4 ml/min; Potassium 4.1 mmol/L (3.5-5.1)
[2023-11-22 05:39] LABS: INR 1.3 (0.9-1.1); Prothrombin Time 14.1 Seconds (9.0-12.0)
[2023-11-22] MEDS ORDERED: Nursing to Pharmacy Communication SCH (06:30)
--- NOTE | 2023-11-22 09:42 | Discharge Summary ---
Date of Service November 22, 2023 Admission HPI Per Admitting Provider Dru Galvan is an 83-year-old male with known end-stage COPD on 5LPM at rest and 7LPM O2 on exertion who presents to the ER due to shortness of breath. SpO2 65 to 67% on his usual 7 L when EMS arrived. He was placed immediately on BiPAP and administered 125 mg Solu-Medrol (this morning at 9:30am). He has known atrial fibrillation. The patient reports his symptoms started suddenly yesterday afternoon but much worse today as he was so short of breath he couldn't even eat. No fever or chills. No cough. No chest pain. No coughing/choking after eating (noted food bolus stuck in esophagus in March 2023). He has had repeated admission at [facility] and [facility] for his COPD this year. Principal Diagnosis Acute on chronic diastolic CHF, acute on chronic hypoxic respiratory failure, chronic atrial fibrillation with rapid ventricular rate, COVID positivity by nasal swab Discharge Exam General-alert and oriented x3, no fever, no chills HEENT-head atraumatic and normocephalic, pupils equal and reactive to light, extraocular muscles intact Neck-no lymphadenopathy or thyromegaly, trachea midline Chest-diminished breath sounds bilaterally. No rhonchi. No dullness. No wheezing. Cardiac-controlled irregular rate and rhythm. Normal S1 and S2 Abdomen-normal bowel sounds, nontender, no hepatosplenomegaly Extremities-no cyanosis, clubbing, or edema Neuro-cranial nerves II through XII intact, motor and sensory function within normal limits, strength symmetrical, no focal deficits Psych-normal affect, normal mood Discharge Data Allergies Allergy/AdvReac Type Severity Reaction Status Date / Time pollen extracts Allergy Mild Sneezing Verified 11/18/23 15:33 Consultations 11/18/23 15:00 ED Decision to Admit Stat 11/18/23 19:44 Consult Pulmonology Routine Hospital Course (1) COVID-19: Positivity by nasal swab. No symptoms of acute viral illness at the time. Supportive care. No indication for remdesivir which has been discontinued. (2) Acute and chronic respiratory failure with hypoxia: Oxygen requirements are now at baseline. He apparently uses 5 L of oxygen at rest and 7 L with ambulation. (3) COPD exacerbation: Due to CHF. He has improved to his baseline. Parenteral Lasix administered while hospitalized. Will increase outpatient oral dose at discharge. (4) Type 2 diabetes mellitus: Hemoglobin A1c 6.9 in October. ADA diet. Continue [facility]. Sliding scale coverage (5) CHF (congestive heart failure): Suspected acute on chronic diastolic CHF. Improved with Lasix diuresis. Will increase outpatient oral Lasix dosage. Serial chest x-ray. Monitor intake and output. (6) Atrial fibrillation with RVR: Telemetry. Metoprolol has been switched to diltiazem. Recent cardiac echo done last month reveals left ventricular hypertrophy with normal ejection fraction and evidence of chronic cor pulmonale. INR remains subtherapeutic at 1.3 today, November 21. Will repeat 5 mg Coumadin dose now. Plan Discharge back to [facility] todayNovember 21. Total Time Total Time Spent Total Time Spent (In Minutes): 45 minutes Discharge Plan Discharge Items Patient Disposition: Transfer Long-Term Fac Reason For Visit: ACUTE ON CHRONIC HYPOXIC RESP FAILURE, COPD EXACER Discharge Diagnosis: Acute on chronic diastolic CHF, acute on chronic hypoxic respiratory failure, chronic atrial fibrillation with rapid ventricular rate, COVID positivity by nasal swab Activity: Resume your previous activity Non-emergency contact: Primary Care Provider Call non-emergency contact if: your symptoms worsen Follow-up/Referrals: Arun Alexandre [Primary Care Provider] - Diet: Carb Consistent or DM2 and Heart Healthy Addtl Attending Provider Instructions: Lasix is now 40 mg twice daily. Metoprolol has been switched to diltiazem CD. Luke catheter remains in place at discharge per patient request Pending Studies at Discharge: No Stand-Alone Forms: My [facility] Skilled Items Patient informed of condition?: Yes DNR: Yes Discharge Level of Care: Skilled Communicable Disease: No Discharge Prognosis: Stable Lines: None Urinary Catheter: Yes Medications and DC Order Prescriptions: New diltiazem HCl 240 mg Capsule,Extended Release 24hr 240 mg PO QAM Qty: 30 0RF furosemide [Lasix] 40 mg tablet 40 mg PO BID Qty: 60 0RF Continued fluticasone propion-salmeterol [Advair Diskus] 250-50 mcg/dose blister with device 1 inh inhalation BID Rx Instructions: Rinse mouth with water after use. atorvastatin 10 mg tablet 10 mg PO QAM montelukast 10 mg Tablet 10 mg PO QAM [id number] Tablet 1 tab PO DAILY PreserVision AREDS-2 250-90-40-1 mg Capsule 2 tab PO QAM (DME) Oxygen Home [id number] Liters Per Minute See Rx Instructions .ROUTE .MEDSUPPLY Qty: 1 0RF Rx Instructions: 3 liters continuously. prednisone 5 mg tablet 5 mg PO QAM warfarin 5 mg tablet See Rx Instructions .ROUTE .COMPLEX Rx Instructions: Take 5mg by mouth on Mon/Fri and 2.5mg by mouth all other days metformin 500 mg tablet 500 mg PO BID trazodone 50 mg tablet 50 mg PO HS PRN (Reason: Sleep) spironolactone 25 mg tablet 12.5 mg PO QAM albuterol sulfate 90 mcg/actuation HFA aerosol inhaler 2 puff INHALATION Q6H PRN (Reason: sob/wheezing) hydroxyzine HCl 10 mg Tablet 10 mg PO TID PRN (Reason: anxiety ) dapagliflozin propanediol [Farxiga] 10 mg Tablet 10 mg PO QAM melatonin 3 mg Tablet 3 mg PO HS PRN (Reason: Sleep) cholecalciferol (vitamin D3) [Vitamin D3] 50 mcg (2,000 unit) Capsule 50 mcg PO DAILY Spiriva Respimat 2.5 mcg/actuation mist 1 puff INHALATION BID guaifenesin [Mucinex] 600 mg Tablet Extended Release 12hr 1,200 mg PO Q12H PRN (Reason: Mucus) Discontinued furosemide 20 mg tablet 20 mg PO QAM Qty: 30 5RF metoprolol succinate 50 mg tablet extended release 24 hr 50 mg PO QAM Qty: 30 5RF Discharge Orders: Discharge Order- CHF (Routine); Ordered 11/22/23 Ordered By: Earl Aaron Admission Data Admit Date/Time: 11/18/23 15:15 Attending Provider: Earl Aaron Admit Provider: Ace Shabazz Primary Care Provider: Arun Alexandre Other Providers: Ace Shabazz; Dheeraj Rosas; [facility] Coding Level of Care Code 58407 INP/OBS DISCH >30 MIN Diagnoses COVID-19 U07.1 Acute and chronic respiratory failure with hypoxia J96.21 COPD exacerbation J44.1 Type 2 diabetes mellitus E11.9 Acute on chronic right-sided congestive heart failure I50.813 Heart failure chronicity: acute on chronic Heart failure type: right-sided Atrial fibrillation with RVR I48.91
[2023-11-22] MEDS: WARFARIN SOD 5 MG TAB PO ONE (11:45)
--- NOTE | 2023-11-22 18:12 | XRay Report ---
XR chest 1V portable CLINICAL HISTORY: chf TECHNIQUE: Single frontal radiograph of the chest was obtained. Comparison: Comparison is made to chest radiograph 11/20/2023 FINDINGS: No lines and tubes are seen. Calcified aortic knob is seen. Reticular interstitial opacities are seen . Questionable small bilateral effusions. IMPRESSION: Interstitial thickening is seen. Possible small pleural effusions. ACT 112: Negative or not required by law. Electronically signed by: Prakash Baez M.D. 11/22/2023 6:11 PM
== END 2023-11-22 13:47 | DRG 177 ==
LOC: ED 13:54 → EDINP 15:15 → SUATTDRO 15:15 → 4W 17:40

== ENCOUNTER 2025-02-15 20:01 | Inpatient (IN) ==
--- NOTE | 2025-02-15 20:19 | Emergency Department Note ---
Impression & Plan Atrial fibrillation with rapid ventricular response Admission ED Provider Note HPI: History obtained from patient. The patient is a 84-year-old gentleman with history of COPD, on 6 L nasal cannula oxygen at baseline, atrial fibrillation, who presents to the emergency department with chief complaint of shortness of breath. Patient states that he has been feeling increasingly short of breath since last evening. Patient denies any chest pain. On arrival here to the ED the patient does display tachypnea but he is saturating well on his nasal cannula oxygen. Patient is alert on arrival, he is noted to be tachycardic in the 130s on my initial assessment consistent with atrial fibrillation with RVR on the monitor. ROS: - Per HPI Differential Diagnosis: COPD exacerbation, pneumonia, acute CHF exacerbation, arrhythmia to include atrial fibrillation with RVR, SVT, WPW, amongst other potential pathologies. *Outpatient medications and allergy history reviewed. PE: General: Alert, frail-appearing, no acute distress HEENT: Normocephalic, trachea midline Eyes: Extraocular eye movement is intact, no scleral erythema Pulmonary: Diminished bilateral breath sounds without wheezing or crackles Cardio: Tachycardic rate with irregular rhythm GI: Abdomen is soft to palpation : No suprapubic tenderness MSK: No evidence of trauma or malformation of the extremities, no edema Skin: No evidence of rash Neuro: Alert, no focal deficits Psychiatric: Cooperative INDEPENDENT INTERPRETATIONS: psychiatry resident: (As interpreted by myself): - An order was placed for continuous cardiac monitoring - Patient was noted to be in atrial fibrillation with a rate of 132 EKG: (As interpreted by myself): Rate: 116 Rhythm: Atrial fibrillation with RVR Intervals: Within normal limits ST changes: No ST elevation Time: 2025 Chest x-ray: (As interpreted by myself): Emphysema without any acute infiltrate Interventions provided in ED: - DuoNeb breathing treatment, IV Solu-Medrol Medical Decision Making: IV was established and lab work obtained, 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 Lab work shows a mild leukocytosis at 10.84, hemoglobin is stable at 13.8, platelet count is normal, venous blood gas was obtained that shows pH mildly reduced at 7.33 but pCO2 is normal. CMP does not show any evidence of any critical findings. BNP is elevated at 484 however chest x-ray does not show any evidence of any overt fluid overload. Troponin is negative x 1. EKG shows atrial fibrillation with a rate of 116. I do not visualize any acute ischemic changes. On my reassessment the patient appears improved following DuoNeb breathing treatment and IV Solu-Medrol. I suspect his symptoms are secondary to his COPD exacerbation. He remains tachypneic but at this is improved from his initial presentation. Patient is in agreement for admission. His heart rate did improve into the low 100s. I discussed patient's presentation with the on-call hospitalist, Dr. Charles, and the patient was placed for admission in stable condition. Consultants/Discussions held with other healthcare providers: - Hospitalist, Dr. Charles Disposition discussion held by myself with: - Patient and family bedside Diagnosis: 1. COPD exacerbation, acute 2. Dyspnea, acute 3. Atrial fibrillation with RVR, acute Disposition: Admission Nils Baxter DO Emergency Medicine Past Med/Surg History Problem List (Updated 02/16/25 @ 00:32 by Nils Baxter DO) Atrial fibrillation with rapid ventricular response (Acute) Bladder mass BPH w urinary obs/LUTS Urinary retention Lab test positive for detection of COVID-19 virus COVID-19 Hypoxia (Acute) COPD exacerbation CHF (congestive heart failure) (Acute) COPD (chronic obstructive pulmonary disease) (Acute) JOSEFINA (acute kidney injury) Type 2 diabetes mellitus Esophageal dysmotility Atrial fibrillation with RVR (Acute) Abnormal chest CT Pulmonary hypertension Aspiration into airway Acute and chronic respiratory failure with hypoxia (Acute) COPD (chronic obstructive pulmonary disease) Acute respiratory failure with hypoxia Aspiration pneumonia Food impaction of esophagus Emphysema of lung (Chronic) HTN (hypertension) (Chronic) Dyslipidemia (Chronic) CAD (coronary artery disease) (Chronic) Medical History Elevated serum creatinine Hyperkalemia Acute diastolic CHF (congestive heart failure) DVT prophylaxis Lower extremity edema Family History Other Family history non-contributory Social History Smoking Status: Former smoker Tobacco Type: Cigarettes and Smokeless Tobacco (Dip or Chew) Smoking End Date: 1968; Second Hand Exposure: No; Do You Dip or Chew Tobacco: Yes; Hx Alcohol Use: No Hx Substance Use: No Preferred Language: South Korean Communication Ability: Effective 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 Beliefs That Will Affect Care: None marital status: Current Living Situation: Spouse Current Living Situation Comment: lives at home with , son checks in regularly current occupational status: retired Feels Safe at Home: Yes Safety Concerns: Feels Safe At This Time Assistive Devices: Crutches, Denture - Lower, Glasses, Hearing Aid - Bilateral and Walker Allergies Allergies Allergy/AdvReac Type Severity Reaction Status Date / Time pollen extracts Allergy Mild Sneezing Verified 11/18/23 15:33 isosorbide [From Imdur] Allergy Unknown Verified 12/17/23 08:21 Home Meds Home Medications Medication Instructions Recorded Confirmed fluticasone 250 mcg-salmeterol 50 1 inh inhalation BID 04/07/19 02/15/25 mcg/dose blistr powdr for inhalation (Advair Diskus) montelukast 10 mg tablet 10 mg PO QAM 05/10/20 02/15/25 vit C 250 mg-vit E 90 mg-zinc 40 2 tab PO QDD 04/05/23 02/15/25 mg-copper 1 [id number] capsule (PreserVision AREDS-2) albuterol sulfate 90 mcg/actuation 2 puff inhalation Q6H PRN 10/29/23 02/15/25 aerosol inhaler sob/wheezing dapagliflozin propanediol 10 mg 10 mg PO [facility] 10/29/23 02/15/25 tablet (Farxiga) metformin 500 mg tablet 500 mg PO BID 10/29/23 02/15/25 spironolactone 25 mg tablet 12.5 mg PO [facility] 10/29/23 02/15/25 tamsulosin 0.4 mg capsule 0.4 mg PO [facility] 12/17/23 02/15/25 diltiazem HCl 120 mg 120 mg PO [facility] 02/15/25 02/15/25 capsule,extended release 24 hr, controlled doxepin 10 mg capsule 10 mg PO 02/15/25 02/15/25 furosemide 40 mg tablet 40 mg PO [facility] 02/15/25 02/15/25 ipratropium 0.5 mg-albuterol 3 mg 3 ml inhalation BID 02/15/25 02/15/25 (2.5 mg base)/3 mL nebulization soln magnesium glycinate 200 mg PO 02/15/25 02/15/25 warfarin 5 mg tablet 5 mg PO HS 02/15/25 02/15/25 Previous Rx's Medication Instructions Recorded Oxygen Home #1 ea 04/14/23 Results & Data (ED) Vital Signs Vital Signs - 24 hr 02/15/25 20:03 02/15/25 20:12 02/15/25 20:12 Temperature 37 C Temperature Source Temporal Artery Scan Pulse Rate 139 H Pulse Rate [Apical] 138 H Pulse Rate from SpO2 Sensor Pulse Rhythm Regular Pulse Rhythm [Apical] Irregular Pulse Strength Normal Pulse Strength [Apical] Normal Respiratory Rate 31 H 50 H Respiratory Effort / Characteristics Spontaneous Labored Short of Breath Spontaneous Labored Short of Breath Respiratory Depth Normal Shallow Respiratory Pattern Regular Irregular Blood Pressure 115/72 Blood Pressure [Right Arm] 104/57 L Blood Pressure Mean 86 Blood Pressure Mean [Right Arm] 72 Blood Pressure Position Sitting Blood Pressure Position [Right Arm] Sitting Pulse Oximetry 84 L 98 97 Oxygen Delivery Method Nasal Cannula Oxymask Oxymask Oxygen Flow Rate 6 10 10 Sepsis Recent Fever Within 48 Hours No Sepsis New/Unexplained Change in Mental Status N/A Sepsis Action Taken by Nursing No Action Required 02/15/25 20:12 02/15/25 20:15 02/15/25 20:18 Temperature Temperature Source Pulse Rate 124 H 136 H 116 H Pulse Rate [Apical] Pulse Rate from SpO2 Sensor 141 H Pulse Rhythm Irregular Pulse Rhythm [Apical] Pulse Strength Pulse Strength [Apical] Respiratory Rate 50 H 50 H Respiratory Effort / Characteristics Respiratory Depth Respiratory Pattern Blood Pressure 126/86 Blood Pressure [Right Arm] Blood Pressure Mean 99 Blood Pressure Mean [Right Arm] Blood Pressure Position Blood Pressure Position [Right Arm] Pulse Oximetry 99 100 Oxygen Delivery Method Oxymask Oxygen Flow Rate 10 Sepsis Recent Fever Within 48 Hours Sepsis New/Unexplained Change in Mental Status Sepsis Action Taken by Nursing 02/15/25 20:39 02/15/25 20:51 02/15/25 21:01 Temperature Temperature Source Pulse Rate 121 H 129 H 127 H Pulse Rate [Apical] Pulse Rate from SpO2 Sensor 127 H Pulse Rhythm Pulse Rhythm [Apical] Pulse Strength Pulse Strength [Apical] Respiratory Rate 47 H 36 H 56 H Respiratory Effort / Characteristics Respiratory Depth Respiratory Pattern Blood Pressure 120/78 104/57 L 93/59 L Blood Pressure [Right Arm] Blood Pressure Mean 92 72 82 Blood Pressure Mean [Right Arm] Blood Pressure Position Blood Pressure Position [Right Arm] Pulse Oximetry 93 100 100 Oxygen Delivery Method Oxymask Oxygen Flow Rate 10 Sepsis Recent Fever Within 48 Hours Sepsis New/Unexplained Change in Mental Status Sepsis Action Taken by Nursing 02/15/25 21:15 02/15/25 21:30 02/15/25 21:45 Temperature Temperature Source Pulse Rate 136 H 127 H 132 H Pulse Rate [Apical] Pulse Rate from SpO2 Sensor 138 H Pulse Rhythm Pulse Rhythm [Apical] Pulse Strength Pulse Strength [Apical] Respiratory Rate 29 H 47 H 36 H Respiratory Effort / Characteristics Respiratory Depth Respiratory Pattern Blood Pressure 102/82 119/83 107/80 Blood Pressure [Right Arm] Blood Pressure Mean 88 97 96 Blood Pressure Mean [Right Arm] Blood Pressure Position Blood Pressure Position [Right Arm] Pulse Oximetry 100 100 100 Oxygen Delivery Method Oxygen Flow Rate Sepsis Recent Fever Within 48 Hours Sepsis New/Unexplained Change in Mental Status Sepsis Action Taken by Nursing 02/15/25 21:51 02/15/25 22:00 02/15/25 22:00 Temperature Temperature Source Pulse Rate 101 H 126 H Pulse Rate [Apical] 120 H Pulse Rate from SpO2 Sensor 115 H 131 H Pulse Rhythm Pulse Rhythm [Apical] Regular Pulse Strength Pulse Strength [Apical] Normal Respiratory Rate 36 H 18 34 H Respiratory Effort / Characteristics Non-Labored Spontaneous Respiratory Depth Normal Respiratory Pattern Regular Blood Pressure 115/78 Blood Pressure [Right Arm] 115/78 Blood Pressure Mean 103 Blood Pressure Mean [Right Arm] 90 Blood Pressure Position Blood Pressure Position [Right Arm] Sitting Pulse Oximetry 98 96 96 Oxygen Delivery Method Oxymask Oxygen Flow Rate 6 Sepsis Recent Fever Within 48 Hours Sepsis New/Unexplained Change in Mental Status Sepsis Action Taken by Nursing Laboratory Data 02/15/25 20:35 02/15/25 20:35 Lab Results 02/15/25 02/15/25 Range/Units 20:35 20:55 WBC 10.84 H (4.8-10.8) K/ul RBC 4.40 L (4.70-6.10) M/uL Hgb 13.8 L (14.0-18.0) g/dl Hct 42.3 (42.0-52.0) % MCV 96.1 (80.0-100.0) fL MCH 31.4 (25.0-34.0) pg MCHC 32.6 (32.0-36.0) g/dL RDW Std Deviation 51.8 H (36.4-46.3) fL RDW Coeff of Whitney 14.6 H (11.5-14.5) % Plt Count 252 (130-400) K/uL MPV 11.6 (9.4-12.4) fL Immature Gran % (Auto) 0.4 % Neut % (Auto) 76.0 % Lymph % (Auto) 13.9 % Moore % (Auto) 7.4 % Eos % (Auto) 1.8 % Baso % (Auto) 0.5 % Neut # (Auto) 8.25 H (1.40-6.50) K/uL Lymph # (Auto) 1.51 (1.20-3.40) K/uL Moore # (Auto) 0.80 H (0.11-0.59) K/uL Eos # (Auto) 0.19 (0.00-0.50) K/uL Baso # (Auto) 0.05 (0.00-0.20) K/uL Immature Gran # (Auto) 0.04 (0.01-0.20) K/uL PT 11.3 (9.0-12.0) Seconds INR 1.0 (0.9-1.1) VBG pH 7.33 L (7.36-7.41) VBG pCO2 41 (38-50) mmHg VBG pO2 23 mmHg VBG HCO3 22 mmol/L VBG O2 Saturation < 60.0 % VBG Base Excess -4.1 mEq/L Sodium 140 (136-145) mmol/L Potassium 4.7 (3.5-5.1) mmol/L Chloride 103 (98-107) mmol/L Carbon Dioxide 22 (21-32) mmol/L Anion Gap 15 H (3-11) BUN 18 (6-23) mg/dl Creatinine 1.45 H (0.6-1.4) mg/dl Est Cr Clr Drug Dosing 30.0 ml/min eGFR 47.81 BUN/Creatinine Ratio 12.4 (10-20) Glucose 114 H (70-99(Fasting)) mg/dl Calcium 9.5 (8.6-10.3) mg/dl Total Bilirubin 0.4 (0.2-1.0) mg/dl AST 14 (13-39) U/L ALT 15 (7-52) U/L Alkaline Phosphatase 78 (34-104) U/L Troponin I High Sens 10.2 (0-20) pg/ml B-Natriuretic Peptide 484 H (0-100) pg/ml Total Protein 7.3 (6.0-8.3) gm/dl Albumin 3.8 (3.4-5.0) gm/dl Globulin 3.5 (2.5-4.0) gm/dl Albumin/Globulin Ratio 1.1 (0.9-2) Administered Medications Levalbuterol HCl (Levalbuterol 1.25 Mg/3 Ml Neb) 1.25 mg NEB Q6R MIN Stop: 03/18/25 00:59 Last Admin: 02/16/25 00:14 Dose: 1.25 mg Documented By: EML Discontinued Medications Albuterol (Albut/Ipratrop 3mg/0.5mg Neb 3 Ml Vial) 3 ml NEB NOW STA; Protocol Stop: 02/15/25 20:18 Last Admin: 02/15/25 20:29 Dose: 3 ml Documented By: BRITTANY Diltiazem HCl (Diltiazem Hcl 5 Mg/Ml 5 Ml Vial) 5 mg IV NOW STA Stop: 02/15/25 21:30 Last Admin: 02/15/25 21:40 Dose: 5 mg Documented By: BRITTANY Co-signed By: MICHAEL Sodium Chloride (Nss) 500 mls @ 999 mls/hr IV .Q31M ONE Stop: 02/15/25 22:03 Last Infusion: 02/16/25 00:23 Dose: Infused Documented By: Admin: 02/15/25 21:38 Dose: 999 mls/hr Documented By: BRITTANY Methylprednisolone (Methylprednisolone 125 Mg/2 Ml Vial) 125 mg IV NOW STA Stop: 02/15/25 20:18 Last Admin: 02/15/25 20:29 Dose: 125 mg Documented By: BRITTANY Imaging Data Radiologist's Impression: Chest X-Ray 02/15/25 20:12 Exam(s): XR CXR 1 VIEW EXAM: XR Chest, 1 View CLINICAL HISTORY: Reason for exam: Dyspnea. TECHNIQUE: Frontal view of the chest. COMPARISON: 12/31/2024 FINDINGS: Lungs: Lungs are mildly hyperexpanded with coarse linear densities throughout both lungs and somewhat sparse interstitial markings in the upper lobes consistent with moderate emphysema, similar to previous. There is scarring in both lung apices, unchanged. No consolidation. Pleural space: Unremarkable. No pneumothorax. Heart: The cardiac silhouette is upper normal in size. Mediastinum: Unremarkable. Normal mediastinal contour. Bones/joints: Unremarkable. No acute fracture. Vasculature: The aortic arch is moderately calcified. Upper abdomen: Unremarkable as visualized. No pneumoperitoneum under the diaphragm. IMPRESSION: Moderate emphysema, similar to previous. No new infiltrates are identified. Electronically signed by: Quintin Chatman MD 02/15/25 21:31 PM Discharge Plan Visit Data Chief Complaint: Shortness of Breath/Dyspnea Stated Complaint: COPD, SOB ED Provider: Nils Baxter Discharge Problem: Atrial fibrillation with rapid ventricular response Patient Disposition: Admitted As Inpatient Condition: Fair Discharge Instructions Interventions: ED Discharge Assessment Last Done: 02/15/25 23:03
[2025-02-15] MEDS: ALBUT/IPRATROP 3MG/0.5MG NEB 3 ML VIAL NEB STA (20:29)
[2025-02-15 20:52] LABS: Hematocrit (blood only) 42.3 % (42.0-52.0); Hemoglobin 13.8 g/dl (14.0-18.0); Immature Granulocytes # (auto) 0.04 K/uL (0.01-0.20); Immature Granulocytes % (auto) 0.4 %; Mean Corpuscular Hemoglobin 31.4 pg (25.0-34.0); Mean Corpuscular Volume 96.1 fL (80.0-100.0); Platelet Count 252 K/uL (130-400); RDW Standard Deviation 51.8 fL (36.4-46.3); Red Blood Count 4.40 M/uL (4.70-6.10); White Blood Count 10.84 K/ul (4.8-10.8)
[2025-02-15 21:05] LABS: Base Excess VBG -4.1 mEq/L; HCO3 VBG 22 mmol/L; Oxygen Saturation VBG < 60.0 %; PCO2 VBG 41 mmHg (38-50); PO2 VBG 23 mmHg; pH VBG 7.33 (7.36-7.41)
[2025-02-15 21:10] LABS: Alanine Aminotransferase 15.0 U/L (7-52); Albumin Globulin Ratio 1.1 (0.9-2); Alkaline Phosphatase 78.0 U/L (34-104); Anion Gap 15.0 (3-11); Bilirubin,Total 0.4 mg/dl (0.2-1.0); Blood Urea Nitrogen 18.0 mg/dl (6-23); Calcium 9.5 mg/dl (8.6-10.3); Carbon Dioxide 22.0 mmol/L (21-32); Chloride 103.0 mmol/L (98-107); Creatinine Clr Calc Pharmacy 30.0 ml/min; Globulin 3.5 gm/dl (2.5-4.0); Glucose 114.0 mg/dl (70-99(Fasting)); Potassium 4.7 mmol/L (3.5-5.1); Sodium 140.0 mmol/L (136-145); Total Protein 7.3 gm/dl (6.0-8.3)
[2025-02-15 21:21] LABS: INR 1.0 (0.9-1.1); Prothrombin Time 11.3 Seconds (9.0-12.0)
--- NOTE | 2025-02-15 21:32 | XRay Report ---
Exam(s): XR CXR 1 VIEW EXAM: XR Chest, 1 View CLINICAL HISTORY: Reason for exam: Dyspnea. TECHNIQUE: Frontal view of the chest. COMPARISON: 12/31/2024 FINDINGS: Lungs: Lungs are mildly hyperexpanded with coarse linear densities throughout both lungs and somewhat sparse interstitial markings in the upper lobes consistent with moderate emphysema, similar to previous. There is scarring in both lung apices, unchanged. No consolidation. Pleural space: Unremarkable. No pneumothorax. Heart: The cardiac silhouette is upper normal in size. Mediastinum: Unremarkable. Normal mediastinal contour. Bones/joints: Unremarkable. No acute fracture. Vasculature: The aortic arch is moderately calcified. Upper abdomen: Unremarkable as visualized. No pneumoperitoneum under the diaphragm. IMPRESSION: Moderate emphysema, similar to previous. No new infiltrates are identified. Electronically signed by: Quintin Chatman MD 02/15/25 21:31 PM
[2025-02-15] MEDS: SODIUM CHLORIDE 0.9% 500 ML IV ONE (21:38)
--- NOTE | 2025-02-15 22:10 | History & Physical Report ---
Date of Service February 15, 2025 Assessment & Plan (1) COPD exacerbation: (2) Type 2 diabetes mellitus: (3) Atrial fibrillation with RVR: (4) HTN (hypertension): Plan #Acute and chronic respiratory failure with hypoxia: COPD Exacerbation will admit to PCU Patient is a DNR DNI Poor baseline of 5LPM O2 at rest and 7LPm O2 on exertion No hypercapnia on VBG aim O2 88-92% will place on cefepime/azithromcyin xopenex solumedrol will obtain BIOFIRE obtain sputum culture/ blood culture flutter valve # Type 2 diabetes mellitus: Hemoglobin A1c 6.9 in October Hold Farxiga Correfction factor and carb ratio --BSGs ACHS if eating, q6h if npo # CHF (congestive heart failure): Chronic congestive heart failure Low suspicion of acute component will resume home meds in AM. # Atrial fibrillation with RVR: Patient's heart rate is elevated in the 120s, likely compensating will monitor and trend. Plan VTE prophylaxis - warfarin Disposition - admit to PCU History of Present Illness Chief Complaint: SOB Primary Care Provider: Arun Alexandre 84 yo male with PMH of known end-stage COPD on 5LPM at rest and 7LPM O2 on exertion who presents to the ER due to shortness of breath. The patient reports his symptoms started suddenly yesterday evening but much worse today. No fever or chills. No cough. No chest pain. No coughing/choking after eating (noted food bolus stuck in esophagus in March 2023). Patient denies any sick contacts. Patient currently wearing an oxymask and states feeling better since being admitted. Allergies Allergy/AdvReac Type Severity Reaction Status Date / Time pollen extracts Allergy Mild Sneezing Verified 11/18/23 15:33 isosorbide [From Imdur] Allergy Unknown Verified 12/17/23 08:21 Home Medications Medication Instructions Recorded Confirmed Type fluticasone 250 mcg-salmeterol 50 1 inh inhalation BID 04/07/19 02/15/25 History mcg/dose blistr powdr for inhalation (Advair Diskus) montelukast 10 mg tablet 10 mg PO QAM 05/10/20 02/15/25 History vit C 250 mg-vit E 90 mg-zinc 40 2 tab PO QDD 04/05/23 02/15/25 History mg-copper 1 [id number] capsule (PreserVision AREDS-2) Oxygen Home #1 ea 04/14/23 02/15/25 Rx albuterol sulfate 90 mcg/actuation 2 puff inhalation Q6H PRN 10/29/23 02/15/25 History aerosol inhaler sob/wheezing dapagliflozin propanediol 10 mg 10 mg PO QAM 10/29/23 02/15/25 History tablet (Farxiga) metformin 500 mg tablet 500 mg PO BID 10/29/23 02/15/25 History spironolactone 25 mg tablet 12.5 mg PO QA 10/29/23 02/15/25 History tamsulosin 0.4 mg capsule 0.4 mg PO [facility] 12/17/23 02/15/25 History diltiazem HCl 120 mg 120 mg PO [facility] 02/15/25 02/15/25 History capsule,extended release 24 hr, controlled doxepin 10 mg capsule 10 mg PO 02/15/25 02/15/25 History furosemide 40 mg tablet 40 mg PO [facility] 02/15/25 02/15/25 History ipratropium 0.5 mg-albuterol 3 mg 3 ml inhalation BID 02/15/25 02/15/25 History (2.5 mg base)/3 mL nebulization soln magnesium glycinate 200 mg PO 02/15/25 02/15/25 History warfarin 5 mg tablet 5 mg PO 02/15/25 02/15/25 History Past Med/Surg History Problem List Bladder mass BPH w urinary obs/LUTS Urinary retention Lab test positive for detection of COVID-19 virus COVID-19 Hypoxia (Acute) COPD exacerbation CHF (congestive heart failure) (Acute) COPD (chronic obstructive pulmonary disease) (Acute) JOSEFINA (acute kidney injury) Type 2 diabetes mellitus Esophageal dysmotility Atrial fibrillation with RVR (Acute) Abnormal chest CT Pulmonary hypertension Aspiration into airway Acute and chronic respiratory failure with hypoxia (Acute) COPD (chronic obstructive pulmonary disease) Acute respiratory failure with hypoxia Aspiration pneumonia Food impaction of esophagus Emphysema of lung (Chronic) HTN (hypertension) (Chronic) Dyslipidemia (Chronic) CAD (coronary artery disease) (Chronic) Medical History Elevated serum creatinine Hyperkalemia Acute diastolic CHF (congestive heart failure) DVT prophylaxis Lower extremity edema Family History Other Family history non-contributory Social History Smoking Status: Former smoker Tobacco Type: Cigarettes and Smokeless Tobacco (Dip or Chew) Second Hand Exposure: No; Do You Dip or Chew Tobacco: Yes; Hx Alcohol Use: No Hx Substance Use: No Preferred Language: Malagasy Communication Ability: Effective 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 Beliefs That Will Affect Care: None marital status: Current Living Situation: Rehab Current Living Situation Comment: lives at home with , son checks in regularly current occupational status: retired Feels Safe at Home: Yes Assistive Devices: Cane, Oxygen - at Night, Oxygen - Continuous, Walker and Wheelchair Review of Systems Constitutional: no fever Eyes: no blind spots Ear, Nose, Mouth, Throat: no ear pain Respiratory: + cough and + dyspnea Cardiovascular: no chest pain Gastrointestinal: no abdominal pain Genitourinary: no dysuria Musculoskeletal: no back pain Integumentary: no acne Neurologic: no gait abnormality Psychiatric: no behavioral changes Endocrine: no fatigue Hematologic / Lymphatic: no easy bleeding Allergy / Immunological: no GI upset with certain foods Physical Exam Physical Exam: Constitutional-In moderate distress, using accessory muscles to breath Eyes: + anicteric sclerae; normal pupil size Respiratory: + respiratory distress, + labored breath ing, + uses accessory muscles and + prolonged expiratory phase; able to speak in complete sentences Auscultation: + diminished lung sounds (throughout) and + crackles (bibasal); no wheezes Cardiovascular: Rate/Rhythm: regular rate and + irregularly irregular Heart Sounds: no murmur Extremities: normal capillary refill; no calf tenderness and no pedal edema Gastrointestinal (Abdomen): normal bowel sounds, soft, nontender, no hepatosplenomegaly Musculoskeletal: no cyanosis or clubbing, extremities motor strength 5/5 Skin: no rashes, warm and dry Neurologic: moves all extremities and awake; not confused Psychiatric: A+Ox3, euthymic affect Results & Data Results & Data Vital Signs (Past 12 Hours) Vital Signs Temp Pulse Pulse Resp BP BP Pulse Ox 02/15/25 22:00 120 H 18 115/78 96 02/15/25 21:51 101 H 36 H 98 02/15/25 21:45 132 H 36 H 107/80 100 02/15/25 21:30 127 H 47 H 119/83 100 02/15/25 21:15 136 H 29 H 102/82 100 02/15/25 21:01 127 H 56 H 93/59 L 100 02/15/25 20:51 129 H 36 H 104/57 L 100 02/15/25 20:39 121 H 47 H 120/78 93 02/15/25 20:18 116 H 50 H 126/86 100 02/15/25 20:15 136 H 02/15/25 20:12 124 H 50 H 99 02/15/25 20:12 138 H 50 H 104/57 L 97 02/15/25 20:12 98 02/15/25 20:03 37 C 139 H 31 H 115/72 84 L O2 Del Method O2 Flow Rate 02/15/25 22:00 Oxymask 6 02/15/25 21:51 02/15/25 21:45 02/15/25 21:30 02/15/25 21:15 02/15/25 21:01 02/15/25 20:51 Oxymask 10 02/15/25 20:39 02/15/25 20:18 02/15/25 20:15 02/15/25 20:12 Oxymask 10 02/15/25 20:12 Oxymask 10 02/15/25 20:12 Oxymask 10 02/15/25 20:03 Nasal Cannula 6 PG Care Time/CCT Total # of Minutes Spent Total Time Spent with Patient: Total time spent is greater than 50% in coordination of care (as documented) at patient's floor/unit and/or counseling patient: Coding Level of Care Code 98242 INT INP/OBS CARE 3/75MIN Diagnoses COPD exacerbation J44.1 Type 2 diabetes mellitus E11.9 Atrial fibrillation with RVR I48.91 HTN (hypertension) I10
[2025-02-15] MEDS ORDERED: CARBOHYDRATES FOR HYPOGLYCEMIA PO PRN (22:39)
[2025-02-15] MEDS ORDERED: GLUCAGON FOR INJ 1 MG VIAL SQ PRN (22:39)
[2025-02-15] MEDS ORDERED: GLUCOSE 10 TAB/TUBE PO PRN (22:39)
[2025-02-15] MEDS ORDERED: DEXTROSE 50% 50 ML SYRINGE IV PRN (22:39)
[2025-02-15] MEDS ORDERED: GLUCOSE 40% GEL 15 GM TUBE PO PRN (22:39)
[2025-02-15] MEDS ORDERED: PHARMACY GLYCEMIC MGMT CONSULT PRN (22:39)
[2025-02-15 23:36] LABS: Chlamydia pneumoniae PCR Not Detected (NotDetected); Coronavirus 229E PCR Not Detected (NotDetected); Coronavirus CoV-2 (COVID19)PCR Not Detected (NotDetected); Coronavirus HKU1 PCR Not Detected (NotDetected); Coronavirus NL63 PCR Not Detected (NotDetected); Coronavirus OC43PCR Not Detected (NotDetected); Human Metapneumovirus PCR Not Detected (NotDetected); Parainfluenza Virus 1 PCR Not Detected (NotDetected); Parainfluenza Virus 2 PCR Not Detected (NotDetected); Parainfluenza Virus 3 PCR Not Detected (NotDetected); Parainfluenza Virus 4 PCR Not Detected (NotDetected); Respiratory Syncytial VirusPCR Not Detected (NotDetected); Rhinovirus/Enterovirus PCR Not Detected (NotDetected)
[2025-02-15] MEDS ORDERED: ALBUT/IPRATROP 3MG/0.5MG NEB 3 ML VIAL NEB PRN (23:59)
[2025-02-16] MEDS: LEVALBUTEROL 1.25 MG/3 ML NEB NEB SCH (00:14)
[2025-02-16] MEDS: METOPROLOL TARTRATE 1 MG/ML VIAL IV STA (00:26)
[2025-02-16] MEDS: AZITHROMYCIN 500 MG/255 ML BAG IV SCH (00:53)
[2025-02-16] MEDS: CEFEPIME 2000MG 2,000 MG/20 ML SYR IV SCH (00:53)
[2025-02-16] MEDS: WARFARIN SOD 5 MG TAB PO ONE (00:54)
[2025-02-16] MEDS: INSULIN ASPART PER UNIT CHARGE SC SCH (01:23)
[2025-02-16] MEDS ORDERED: METOPROLOL TARTRATE 1 MG/ML VIAL IV STA (01:44)
[2025-02-16] MEDS: MAGNESIUM SULFATE / D5W 1 GM/100 ML BAG IV ONE (02:12)
[2025-02-16] MEDS: SODIUM CHLORIDE 0.9% 500 ML IV ONE (02:13)
[2025-02-16 05:41] LABS: Base Excess VBG -4.2 mEq/L; HCO3 VBG 21 mmol/L; Oxygen Saturation VBG < 60.0 %; PCO2 VBG 38 mmHg (38-50); PO2 VBG 26 mmHg; pH VBG 7.35 (7.36-7.41)
[2025-02-16 05:51] LABS: Hematocrit (blood only) 37.8 % (42.0-52.0); Hemoglobin 12.3 g/dl (14.0-18.0); Mean Corpuscular Hemoglobin 31.4 pg (25.0-34.0); Mean Corpuscular Volume 96.4 fL (80.0-100.0); Platelet Count 201 K/uL (130-400); RDW Standard Deviation 50.6 fL (36.4-46.3); Red Blood Count 3.92 M/uL (4.70-6.10); White Blood Count 5.90 K/ul (4.8-10.8)
[2025-02-16 06:00] LABS: Appearance Urine Clear (Clear); Bacteria Urine Automated None Seen (None Seen); Cast Urine Automated 0-2 /lpf (0-2); Epithelial Cell Urine Auto 0-2 /hpf (0-2); Glucose Urine UA 2+ (Negative); RBC Urine Automated 0-2 /hpf (0-2); WBC Urine Automated 0-5 /hpf (0-5)
[2025-02-16 06:21] LABS: INR 1.1 (0.9-1.1); Prothrombin Time 11.4 Seconds (9.0-12.0)
[2025-02-16 06:27] LABS: Anion Gap 10 (3-11); Blood Urea Nitrogen 20 mg/dl (6-23); Calcium 8.7 mg/dl (8.6-10.3); Carbon Dioxide 21 mmol/L (21-32); Chloride 106 mmol/L (98-107); Creatinine Clr Calc Pharmacy 34.8 ml/min; Glucose 176 mg/dl (70-99(Fasting)); Magnesium 3.1 mg/dl (1.7-2.4); Potassium 5.1 mmol/L (3.5-5.1); Sodium 137 mmol/L (136-145)
[2025-02-16] MEDS: SPIRONOLACTONE 12.5 MG TAB PO SCH (08:26)
[2025-02-16] MEDS: TAMSULOSIN HCL 0.4 MG CAP PO SCH (08:27)
[2025-02-16] MEDS: MONTELUKAST SODIUM 10 MG TABLET PO SCH (08:27)
[2025-02-16] MEDS: FUROSEMIDE 40 MG TAB PO SCH (08:27)
[2025-02-16] MEDS: FLUTICASONE/VILANTEROL 200/25MCG 14 PUFFS/INHALER INH SCH (08:27)
--- NOTE | 2025-02-16 10:08 | Hospitalist Progress Note ---
Date of Service February 16, 2025 Assessment & Plan (1) COPD exacerbation: Plan: xopenex solumedrol cefepime/azithromcyin empiric treatment for PNA pt on 5LNC baseline at rest (2) Type 2 diabetes mellitus: Plan: RISS (3) CHF (congestive heart failure): Plan: lasix spironolactone (4) Atrial fibrillation with RVR: Plan: -Cardizem for rate control -coumadin (5) HTN (hypertension): Admission and Anticipated Discharge Date Admission Date: February 15, 2025 Subjective Pt feeling better this am on oxymask Review of Systems Review of Systems: CONST: Negative for fever, body aches and chills. HENT: Negative for neck pain/stiffness, headache, congestion, sore throat, swelling. EYES: Negative for discharge/pain or vision changes. RESP: Negative for cough/hemoptysis and shortness of breath. CV: Negative chest pain, difficulty breathing, palpitations. ABD: Negative pain, nausea, vomiting. : Negative increase frequency, dysuria, blood in urine or stool. MUSC: Negative for muscle aches, edema. SKIN: Negative rash, lesions/sores. NEURO: Negative headache, dizziness, weakness. Physical Exam Physical Exam: GENERAL APPEARANCE NAD, activity normal for age, well developed/ well nourished, no cyanosis, pallor, or diaphoresis. EYES lids/conjunctiva normal. EARS/NOSE/THROAT Mucous membranes moist, nares normal, lips/teeth normal uvula midline without oral pharyngeal erythema, exudate or swelling TMs normal bilaterally. No lymphangitis/lymphedema. HEAD/NECK normocephalic atraumatic, no facial trauma, neck is supple. RESPIRATORY respiratory effort normal, speaks in full sentences, no tripod position, no accessory muscle use. Lungs clear to auscultation without rhonchi, wheezes, rales CARDIAC Regular rate and rhythm, no edema. ABDOMINAL Soft, ND/NT. No evidence of fluid wave. No pulsatile masses on exam, rebound tenderness, Varma sign or pain over Mcburney's point. MUSCLES/EXTREMITIES No abnormal range of motion, no swelling. SKIN Warm, pink and dry. No rashes, dermatoses, petechiae or lesions. NEUROLOGICAL Speech is clear and appropriate. Normal level of consciousness. Gait and coordination are normal. 5/5 strength in all extremities. PSYCH Normal mood and affect. Judgement/competence is appropriate Results & Data Results & Data Vital Signs (Past 12 Hours) Vital Signs Temp Pulse Pulse Resp BP BP Pulse Ox 02/16/25 07:51 119 H 02/16/25 07:43 02/16/25 07:22 36.5 C 120 H 20 115/70 94 02/16/25 06:55 122 H 23 94 02/16/25 06:55 122 H 23 94 02/16/25 04:12 102 H 14 93 02/16/25 04:11 123 H 49 H 95 02/16/25 02:27 02/16/25 01:48 128 H 27 H 116/67 94 02/16/25 00:32 125 H 44 H 96 02/16/25 00:28 02/15/25 23:52 114 H 02/15/25 23:42 36.1 C L 130 H 48 H 160/63 H 98 02/15/25 23:30 02/15/25 23:03 Pulse Ox O2 Del Method O2 Del Method O2 Flow Rate FiO2 02/16/25 07:51 02/16/25 07:43 Oxymask 5 02/16/25 07:22 BiPAP 02/16/25 06:55 28 02/16/25 06:55 BiPAP 28 02/16/25 04:12 CPAP 02/16/25 04:11 28 02/16/25 02:27 CPAP 02/16/25 01:48 CPAP 02/16/25 00:32 40 02/16/25 00:28 99 CPAP 02/15/25 23:52 02/15/25 23:42 Oxymask 11 02/15/25 23:30 Oxymask 10 02/15/25 23:03 Oxymask 6 PG Care Time/CCT Total # of Minutes Spent Total Time Spent with Patient: Total time spent is greater than 50% in coordination of care (as documented) at patient's floor/unit and/or counseling patient: Coding Level of Care Code 07172 SUB INP/OBS CARE 2/35MIN Diagnoses COPD exacerbation J44.1 Type 2 diabetes mellitus E11.9 Acute on chronic right-sided congestive heart failure I50.813 Heart failure chronicity: acute on chronic Heart failure type: right-sided Atrial fibrillation with RVR I48.91 HTN (hypertension) I10 (3) CHF (congestive heart failure) Heart failure chronicity: acute on chronic Heart failure type: right-sided Qualified Code(s): I50.813 - Acute on chronic right heart failure
--- NOTE | 2025-02-16 14:26 | Electrocardiogram Report ---
Test Reason : Blood Pressure : */* mmHG Vent. Rate : 116 BPM Atrial Rate : * BPM P-R Int : * ms QRS Dur : 78 ms QT Int : 286 ms P-R-T Axes : * 73 32 degrees QTcB Int : 397 ms Atrial fibrillation with rapid ventricular response with premature ventricular or aberrantly conducte d complexes Low voltage QRS Abnormal ECG When compared with ECG of 31-Dec-2024 14:03, No significant change was found Confirmed by Dudley Jaramillo ([id number]) on 02/16/2025 2:26:40 PM Referred By: REFERRED SELF Confirmed By: Dudley Jaramillo
--- NOTE | 2025-02-16 14:41 | Pharmacy Report ---
Pharmacy Glycemic Short Note 2 - Date of Service February 16, 2025 - Glycemic Short BSG Results (Last 24 hours): 02/15/25 02/16/25 02/16/25 20:35 01:04 05:12 Glucose 114 H 176 H POC Glucose 158 H 02/16/25 02/16/25 07:22 11:37 Glucose POC Glucose 141 H 107 H OUTPATIENT ANTIDIABETIC REGIMEN: * dapagliflozin 10mg po q AM * metformin 500mg po BID last HbA1c: 6.9% on 10/30/23, updated value ordered for 02/17/25 ASSESSMENT: * Dru is an 84 year old male who was admitted last evening with a COPD exacerbation. Pharmacy was consulted for glycemic management while he is admitted. * Fasting BSG this morning was 141mg/dL. A weight based bolus insulin regimen with a stress between 2 and 3 was started. No basal insulin is needed at this time. * BSG was below goal at lunch today so the carb ratio was loosened to prevent hypoglycemia. PLAN FOR INPATIENT GLYCEMIC CONTROL: * Hold outpatient oral diabetes medications * Basal insulin * None * Bolus insulin * NovoLog per scale ACHS or Q6hrs while NPO * Goal Range: Low 110 mg/dL - High 140 mg/dL * Correction Factor: 45 mg/dL/unit * Nutritional / Prandial insulin per carb ratio of 1 unit per 15 grams CHO consumed
[2025-02-16] MEDS: WARFARIN SOD 5 MG TAB PO SCH (17:13)
[2025-02-16] MEDS: CEROVITE ADV FORMULA TAB PO SCH (18:16)
[2025-02-16] MEDS ORDERED: MAGNESIUM GLYCINATE 100 MG PO SCH (21:00)
[2025-02-16] MEDS ORDERED: MAGNESIUM PO SCH (21:00)
[2025-02-16] MEDS: DOXEPIN HCL 10 MG CAPSULE PO SCH (21:31)
[2025-02-17 06:16] LABS: INR 1.3 (0.9-1.1); Prothrombin Time 13.6 Seconds (9.0-12.0)
[2025-02-17 07:36] LABS: Hemoglobin A1C 5.9 % (4.5-5.6)
--- NOTE | 2025-02-17 10:42 | Hospitalist Progress Note ---
Date of Service February 17, 2025 Assessment & Plan (1) COPD exacerbation: Plan: xopenex solumedrol cefepime/azithromcyin empiric treatment for PNA pt on 5LNC baseline at rest (2) Type 2 diabetes mellitus: Plan: RISS (3) CHF (congestive heart failure): Plan: lasix spironolactone (4) Atrial fibrillation with RVR: Plan: -Cardizem for rate control -coumadin (5) HTN (hypertension): Plan: PT/OT evaluation Admission and Anticipated Discharge Date Admission Date: February 15, 2025 Subjective Pt feeling his breathing is better. He is on NC today. Review of Systems Review of Systems: CONST: Negative for fever, body aches and chills. HENT: Negative for neck pain/stiffness, headache, congestion, sore throat, swelling. EYES: Negative for discharge/pain or vision changes. RESP: Negative for cough/hemoptysis and shortness of breath. CV: Negative chest pain, difficulty breathing, palpitations. ABD: Negative pain, nausea, vomiting. : Negative increase frequency, dysuria, blood in urine or stool. MUSC: Negative for muscle aches, edema. SKIN: Negative rash, lesions/sores. NEURO: Negative headache, dizziness, weakness. Constitutional: no fever Eyes: no blind spots Ear, Nose, Mouth, Throat: no ear pain Respiratory: + cough and + dyspnea Cardiovascular: no chest pain Gastrointestinal: no abdominal pain Genitourinary: no dysuria Musculoskeletal: no back pain Integumentary: no acne Neurologic: no gait abnormality Psychiatric: no behavioral changes Endocrine: no fatigue Hematologic / Lymphatic: no easy bleeding Allergy / Immunological: no GI upset with certain foods Physical Exam Physical Exam: GENERAL APPEARANCE NAD, activity normal for age, well developed/ well nourished, no cyanosis, pallor, or diaphoresis. EYES lids/conjunctiva normal. EARS/NOSE/THROAT Mucous membranes moist, nares normal, lips/teeth normal uvula midline without oral pharyngeal erythema, exudate or swelling TMs normal bilaterally. No lymphangitis/lymphedema. HEAD/NECK normocephalic atraumatic, no facial trauma, neck is supple. RESPIRATORY respiratory effort normal, speaks in full sentences, no tripod position, no accessory muscle use. Lungs clear to auscultation without rhonchi, wheezes, rales CARDIAC Regular rate and rhythm, no edema. ABDOMINAL Soft, ND/NT. No evidence of fluid wave. No pulsatile masses on exam, rebound tenderness, Varma sign or pain over Mcburney's point. MUSCLES/EXTREMITIES No abnormal range of motion, no swelling. SKIN Warm, pink and dry. No rashes, dermatoses, petechiae or lesions. NEUROLOGICAL Speech is clear and appropriate. Normal level of consciousness. Gait and coordination are normal. 5/5 strength in all extremities. PSYCH Normal mood and affect. Judgement/competence is appropriate Results & Data Results & Data Vital Signs (Past 12 Hours) Vital Signs Temp Pulse Pulse Resp BP BP Pulse Ox 02/17/25 08:00 02/17/25 07:33 99 H 28 H 98 02/17/25 07:11 36.3 C L 97 H 19 103/62 99 02/17/25 02:55 36.4 C L 101 H 18 109/72 98 02/17/25 00:49 118 H 30 H 98 02/17/25 00:00 02/16/25 23:05 114 H 02/16/25 23:01 36.5 C 106 H 20 96/62 L 96 Pulse Ox O2 Del Method O2 Del Method O2 Flow Rate O2 Flow Rate 02/17/25 08:00 Nasal Cannula 6 02/17/25 07:33 Oxymask 6 02/17/25 07:11 Oxymask 6 02/17/25 02:55 Oxymask 6 02/17/25 00:49 Oxymask 6 02/17/25 00:00 95 Oxymask 6 02/16/25 23:05 02/16/25 23:01 Oxymask 6 PG Care Time/CCT Total # of Minutes Spent Total Time Spent with Patient: Total time spent is greater than 50% in coordination of care (as documented) at patient's floor/unit and/or counseling patient: Coding Level of Care Code 29284 SUB INP/OBS CARE 2/35MIN Diagnoses COPD exacerbation J44.1 Type 2 diabetes mellitus E11.9 Acute on chronic right-sided congestive heart failure I50.813 Heart failure chronicity: acute on chronic Heart failure type: right-sided Atrial fibrillation with RVR I48.91 HTN (hypertension) I10 (3) CHF (congestive heart failure) Heart failure chronicity: acute on chronic Heart failure type: right-sided Qualified Code(s): I50.813 - Acute on chronic right heart failure
[2025-02-18 06:10] LABS: INR 1.6 (0.9-1.1); Prothrombin Time 16.7 Seconds (9.0-12.0)
--- NOTE | 2025-02-18 10:18 | Hospitalist Progress Note ---
Date of Service February 18, 2025 Assessment & Plan (1) COPD exacerbation: Plan: fluticasone/vilant xopenex solumedrol 40mg IV daily cefepime/azithromcyin empiric treatment for PNA pt on 5LNC baseline at rest pulmonary consulted for optimization of COPD, as patient still dyspneic (2) Type 2 diabetes mellitus: Plan: RISS (3) CHF (congestive heart failure): Plan: lasix spironolactone (4) Atrial fibrillation with RVR: Plan: -Cardizem for rate control -coumadin (5) HTN (hypertension): Plan: PT/OT evaluation Admission and Anticipated Discharge Date Admission Date: February 15, 2025 Subjective No event overnight. Pt still appears to be dyspneic. Review of Systems Review of Systems: CONST: Negative for fever, body aches and chills. HENT: Negative for neck pain/stiffness, headache, congestion, sore throat, swelling. EYES: Negative for discharge/pain or vision changes. RESP: Negative for cough/hemoptysis and shortness of breath. CV: Negative chest pain, difficulty breathing, palpitations. ABD: Negative pain, nausea, vomiting. : Negative increase frequency, dysuria, blood in urine or stool. MUSC: Negative for muscle aches, edema. SKIN: Negative rash, lesions/sores. NEURO: Negative headache, dizziness, weakness. Constitutional: no fever Eyes: no blind spots Ear, Nose, Mouth, Throat: no ear pain Respiratory: + cough and + dyspnea Cardiovascular: no chest pain Gastrointestinal: no abdominal pain Genitourinary: no dysuria Musculoskeletal: no back pain Integumentary: no acne Neurologic: no gait abnormality Psychiatric: no behavioral changes Endocrine: no fatigue Hematologic / Lymphatic: no easy bleeding Allergy / Immunological: no GI upset with certain foods Physical Exam Physical Exam: GENERAL APPEARANCE NAD, activity normal for age, well developed/ well nourished, no cyanosis, pallor, or diaphoresis. EYES lids/conjunctiva normal. EARS/NOSE/THROAT Mucous membranes moist, nares normal, lips/teeth normal uvula midline without oral pharyngeal erythema, exudate or swelling TMs normal bilaterally. No lymphangitis/lymphedema. HEAD/NECK normocephalic atraumatic, no facial trauma, neck is supple. RESPIRATORY respiratory effort normal, speaks in full sentences, no tripod position, no accessory muscle use. Lungs clear to auscultation without rhonchi, wheezes, rales CARDIAC Regular rate and rhythm, no edema. ABDOMINAL Soft, ND/NT. No evidence of fluid wave. No pulsatile masses on exam, rebound tenderness, Varma sign or pain over Mcburney's point. MUSCLES/EXTREMITIES No abnormal range of motion, no swelling. SKIN Warm, pink and dry. No rashes, dermatoses, petechiae or lesions. NEUROLOGICAL Speech is clear and appropriate. Normal level of consciousness. Gait and coordination are normal. 5/5 strength in all extremities. PSYCH Normal mood and affect. Judgement/competence is appropriate Results & Data Results & Data Vital Signs (Past 12 Hours) Vital Signs Temp Pulse Pulse Resp BP Pulse Ox Pulse Ox 02/18/25 07:29 36.3 C L 99 H 20 112/65 98 02/18/25 07:09 91 H 20 98 02/18/25 02:59 36.4 C L 115 H 24 95/59 L 96 02/18/25 02:02 103 H 21 99 02/18/25 00:00 95 02/17/25 23:46 122 H 02/17/25 22:47 36.3 C L 116 H 19 104/62 94 O2 Del Method O2 Del Method O2 Flow Rate O2 Flow Rate 02/18/25 07:29 Nasal Cannula 5 02/18/25 07:09 Nasal Cannula 5 02/18/25 02:59 Nasal Cannula 6 02/18/25 02:02 Nasal Cannula 6 02/18/25 00:00 Oxymask 6 02/17/25 23:46 02/17/25 22:47 Nasal Cannula 6 PG Care Time/CCT Total # of Minutes Spent Total Time Spent with Patient: Total time spent is greater than 50% in coordination of care (as documented) at patient's floor/unit and/or counseling patient: Coding Level of Care Code 36785 SUB INP/OBS CARE 2/35MIN Diagnoses COPD exacerbation J44.1 Type 2 diabetes mellitus E11.9 Acute on chronic right-sided congestive heart failure I50.813 Heart failure chronicity: acute on chronic Heart failure type: right-sided Atrial fibrillation with RVR I48.91 HTN (hypertension) I10 (3) CHF (congestive heart failure) Heart failure chronicity: acute on chronic Heart failure type: right-sided Qualified Code(s): I50.813 - Acute on chronic right heart failure
--- NOTE | 2025-02-18 11:20 | Pulmonary Consultation ---
Date of Consultation February 18, 2025 Assessment & Plan (1) Atrial fibrillation with rapid ventricular response: (2) COPD (chronic obstructive pulmonary disease): COPD type: unspecified COPD Qualified Code(s): J44.9 - Chronic obstructive pulmonary disease, unspecified (3) Pulmonary hypertension: (4) Abnormal chest CT: (5) Acute and chronic respiratory failure with hypoxia: Plan Chest x-ray 02/15/2025 personally reviewed: Hyperinflated film, PFT 05/29/2020 personally reviewed: Moderate obstructive lung dysfunction, insignificant bronchodilator response FVC 3.65 L 92%, FEV1 1.96 L 66%, FEV1/FVC 54%, RV 104%, TLC 86%, RV/TLC 116%, DLCO 42% 2D echo 10/28/2022: EF 55-59%, grade 1 diastolic dysfunction, mild MR, mild TR, PASP 44 mmHg, RV mildly dilated with normal function CT chest 04/08/2023 personally reviewed: Bilateral apical pleural scarring more on the left side Severe centrilobular and paraseptal emphysema Left upper lobe 2.4 cm opacity Small bilateral pleural effusion No significant mediastinal lymphadenopathy -- Acute on chronic hypoxic respiratory failure On 6 L oxygen at home No wheezing appreciated on physical exam Likely secondary to HFpEF from A-fib with RVR Respiratory bio fire negative for everything on 02/15/2025 BNP 484 -- COPD with emphysema Gold E On Advair 250 at home along with montelukast Following up with Dr. 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 Plan: Patient does not seem to be in COPD exacerbation The reason for admission was most likely HFpEF and pulmonary edema but a continue with diuretics to keep the patient negative balance DC Solu-Medrol, give prednisone for 2 days and then stop Okay to discontinue antibiotics if it is given for possible pneumonia as I do not see any clear signs of infection in the lungs Would recommend addition of Spiriva or Incruse to patient's regimen on discharge Recommend RT to check for patient's inspiratory effort with inhaler while in the hospital, if he is not able to have a good respiratory effort then it would be better to change it to nebulized medication even at home Will get bedside spirometry, I do think he would benefit from an AVAPS machine at home if he is willing to use it All questions inquiries of the patient as well as patient's son were answered in depth I spent more than 75 minutes looking in the chart, images, discussing the plan of care with the patient, RN as well as primary team Please note the above document was generated using voice recognition software. It may contain grammatical, syntax or spelling errors.Any formal questions or concerns about the content, text or information contained within the body of this dictation should be directly addressed to the provider for clarification. History of Present Illness Attending Physician: Ivan Harper MD History of Present Illness 84-year-old male was admitted to the hospital because of food impaction in the esophagus Past medical history: Hypertension, dyslipidemia, COPD on 6 L oxygen at home Pulmonary consulted for increasing oxygen requirement Patient's son as well as RN was in the room at the time of examination Patient was not in any respiratory distress. He was saturating 91% on 7 L nasal cannula while having his lunch He stated he is feeling better compared to before He was progressively getting shortness of breath at home that is how he ended up in the hospital He got diuretics and I think that benefited him the most Denied any change in his cough or phlegm. No chest pain, no dizziness, no palpitation No dysuria, no diarrhea No hemoptysis No nausea or vomiting He is compliant with his inhalers at home Social history: [id number] smoking history, quit a long time ago Denies any history of lung cancer in the family Allergies Allergy/AdvReac Type Severity Reaction Status Date / Time pollen extracts Allergy Mild Sneezing Verified 11/18/23 15:33 isosorbide [From Imdur] Allergy Unknown Verified 12/17/23 08:21 Home Medications Medication Instructions Recorded Confirmed Type fluticasone 250 mcg-salmeterol 50 1 inh inhalation BID 04/07/19 02/15/25 History mcg/dose blistr powdr for inhalation (Advair Diskus) montelukast 10 mg tablet 10 mg PO QAM 05/10/20 02/15/25 History vit C 250 mg-vit E 90 mg-zinc 40 2 tab PO QDD 04/05/23 02/15/25 History mg-copper 1 [id number] capsule (PreserVision AREDS-2) Oxygen Home #1 ea 04/14/23 02/15/25 Rx albuterol sulfate 90 mcg/actuation 2 puff inhalation Q6H PRN 10/29/23 02/15/25 History aerosol inhaler sob/wheezing dapagliflozin propanediol 10 mg 10 mg PO QAM 10/29/23 02/15/25 History tablet (Farxiga) metformin 500 mg tablet 500 mg PO BID 10/29/23 02/15/25 History spironolactone 25 mg tablet 12.5 mg PO QAM 10/29/23 02/15/25 History tamsulosin 0.4 mg capsule 0.4 mg PO QAM 12/17/23 02/15/25 History diltiazem HCl 120 mg 120 mg PO QAM 02/15/25 02/15/25 History capsule,extended release 24 hr, controlled doxepin 10 mg capsule 10 mg PO HS 02/15/25 02/15/25 History furosemide 40 mg tablet 40 mg PO QAM 02/15/25 02/15/25 History ipratropium 0.5 mg-albuterol 3 mg 3 ml inhalation BID 02/15/25 02/15/25 History (2.5 mg base)/3 mL nebulization soln magnesium glycinate 200 mg PO HS 02/15/25 02/15/25 History warfarin 5 mg tablet 5 mg PO HS 02/15/25 02/15/25 History Patient History Medical History Elevated serum creatinine Hyperkalemia Acute diastolic CHF (congestive heart failure) DVT prophylaxis Lower extremity edema Family History Other Family history non-contributory Social History Smoking Status: Former smoker Tobacco Type: Cigarettes and Smokeless Tobacco (Dip or Chew) Smoking End Date: 1968; Second Hand Exposure: No; Do You Dip or Chew Tobacco: Yes; Hx Alcohol Use: No Hx Substance Use: No Preferred Language: Hebrew Communication Ability: Effective Pig Sticker Required: No Beliefs That Will Affect Care: None marital status: Current Living Situation: Spouse Current Living Situation Comment: lives at home with , son checks in regularly current occupational status: retired Feels Safe at Home: Yes Safety Concerns: Feels Safe At This Time Assistive Devices: Oxygen - Continuous and Walker Review of Systems 2 Review of Systems: All systems reviewed & are unremarkable except as noted in HPI & below Physical Exam 2 Physical Exam: Constitutional: No acute distress HEENT: EOMI, PERRLA Respiratory system: Decreased air entry bilaterally, no wheeze, no rhonchi, minimal crackles bilateral lower lobe CVS: S1-S2 positive, no murmurs or gallops Abdomen: Soft, nontender, nondistended, positive bowel sounds x4 Extremities: +2 pulses bilaterally radialis/ dorsalis pedis, no cyanosis, minimal pitting edema bilateral lower extremity Neuro: Awake alert oriented x3 Psych: Normal mood and affect G/U: Positive Luke Skin: no rashes, warm and dry Lymphatic: no cervical or axillary lymphadenopathy Results & Data Results & Data Vital Signs (Past 12 Hours) Vital Signs Temp Pulse Pulse Resp BP Pulse Ox Pulse Ox 02/18/25 07:29 36.3 C L 99 H 20 112/65 98 02/18/25 07:09 91 H 20 98 02/18/25 02:59 36.4 C L 115 H 24 95/59 L 96 02/18/25 02:02 103 H 21 99 02/18/25 00:00 95 02/17/25 23:46 122 H O2 Del Method O2 Del Method O2 Flow Rate O2 Flow Rate 02/18/25 07:29 Nasal Cannula 5 02/18/25 07:09 Nasal Cannula 5 02/18/25 02:59 Nasal Cannula 6 02/18/25 02:02 Nasal Cannula 6 02/18/25 00:00 Oxymask 6 02/17/25 23:46 Laboratory Results 02/16/25 05:12 02/16/25 05:12 PG Care Time/CCT Total # of Minutes Spent Total Time Spent with Patient: Total time spent is greater than 50% in coordination of care (as documented) at patient's floor/unit and/or counseling patient: Coding Level of Care Code 17278 INT INP/OBS CARE 3/75MIN Diagnoses Atrial fibrillation with rapid ventricular response I48.91 COPD (chronic obstructive pulmonary disease) J44.9 COPD type: unspecified COPD Pulmonary hypertension I27.[address] R93.89 Acute and chronic respiratory failure with hypoxia J96.21
[2025-02-18] MEDS: PRESERVISION AREDS PO SCH (17:21)
[2025-02-19 06:24] LABS: INR 1.9 (0.9-1.1); Prothrombin Time 19.5 Seconds (9.0-12.0)
[2025-02-19] MEDS: predniSONE 20 MG TAB PO SCH (08:03)
--- NOTE | 2025-02-19 10:26 | Pulmonology Progress Note ---
Date of Service February 19, 2025 Assessment & Plan (1) Atrial fibrillation with rapid ventricular response: (2) COPD (chronic obstructive pulmonary disease): COPD type: unspecified COPD Qualified Code(s): J44.9 - Chronic obstructive pulmonary disease, unspecified (3) Pulmonary hypertension: (4) Abnormal chest CT: (5) Acute and chronic respiratory failure with hypoxia: Plan Chest x-ray 02/15/2025 personally reviewed: Hyperinflated film, no clear lung infiltrate appreciated Spirometry 02/18/2025 personally reviewed: Severe obstructive lung dysfunction FVC 2.74 L 70%, FEV1 1.18 L 42%, FEV1/FVC 43% PFT 05/29/2020 personally reviewed: Moderate obstructive lung dysfunction, insignificant bronchodilator response FVC 3.65 L 92%, FEV1 1.96 L 66%, FEV1/FVC 54%, RV 104%, TLC 86%, RV/TLC 116%, DLCO 42% 2D echo 10/28/2022: EF 55-59%, grade 1 diastolic dysfunction, mild MR, mild TR, PASP 44 mmHg, RV mildly dilated with normal function CT chest 04/08/2023 personally reviewed: Bilateral apical pleural scarring more on the left side Severe centrilobular and paraseptal emphysema Left upper lobe 2.4 cm opacity Small bilateral pleural effusion No significant mediastinal lymphadenopathy -- Acute on chronic hypoxic respiratory failure On 6 L oxygen at home No wheezing appreciated on physical exam Likely secondary to HFpEF from A-fib with RVR Respiratory bio fire negative for everything on 02/15/2025 BNP 484 -- COPD with emphysema Gold E On Advair 250 at home along with montelukast Following up with Dr. 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 --DNR/DNI Plan: Patient does not seem to be in COPD exacerbation The reason for admission was most likely HFpEF and pulmonary edema but a continue with diuretics to keep the patient negative balance DC Solu-Medrol, give prednisone for 1 more day and then stop The patient spirometry does show severe obstructive lung dysfunction but he was not able to tolerate BiPAP overnight. Although I think that he would benefit from AVAPS but I do not think he would be able to tolerate AVAPS, thus would not pursue getting the patient AVAPS Recommend adding Spiriva 2.5 mcg 2 puffs once a day or Incruse to patient's Advair on discharge Case was discussed with primary team as well as RN at bedside No further recommendation from pulmonary perspective, will sign off Please call directly with any questions Please note the above document was generated using voice recognition software. It may contain grammatical, syntax or spelling errors.Any formal questions or concerns about the content, text or information contained within the body of this dictation should be directly addressed to the provider for clarification. Admission and Anticipated Discharge Date Admission Date: February 15, 2025 Subjective Patient seen and examined at bedside. No acute distress, malignance overnight He was saturating 99% on 6 L nasal cannula while sleeping, I went down to 3 L On waking up, he denied any issues with his breathing. No chest pain He says he is back to his baseline Denied any nausea vomiting Fair appetite Coughing up clear phlegm Unfortunately was not able to tolerate BiPAP overnight Review of Systems 2 Review of Systems: All systems reviewed & are unremarkable except as noted in Subjective Physical Exam 2 Physical Exam: Constitutional: No acute distress HEENT: EOMI, PERRLA Respiratory system: Decreased air entry bilaterally, no wheeze, no rhonchi, minimal crackles bilateral lower lobe CVS: S1-S2 positive, no murmurs or gallops, distant heart sounds Abdomen: Soft, nontender, nondistended, positive bowel sounds x4 Extremities: +2 pulses bilaterally radialis/ dorsalis pedis, no cyanosis, minimal pitting edema bilateral lower extremity Neuro: Awake alert oriented x3 Psych: Normal mood and affect G/U: Positive Luke Skin: no rashes, warm and dry Lymphatic: no cervical or axillary lymphadenopathy Results & Data Results & Data Vital Signs (Past 12 Hours) Vital Signs Temp Pulse Pulse Resp BP Pulse Ox Pulse Ox 02/19/25 07:39 36.4 C L 114 H 18 109/75 91 02/19/25 07:33 107 H 21 99 02/19/25 02:52 36.6 C 102 H 21 117/66 99 02/19/25 01:19 104 H 20 100 02/19/25 00:22 127 H 02/19/25 00:05 02/19/25 00:00 93 02/18/25 22:53 36.4 C L 121 H 20 113/69 95 O2 Del Method O2 Del Method O2 Flow Rate O2 Flow Rate 02/19/25 07:39 Nasal Cannula 6 02/19/25 07:33 Nasal Cannula 6 02/19/25 02:52 Nasal Cannula 6 02/19/25 01:19 Nasal Cannula 6 02/19/25 00:22 02/19/25 00:05 Nasal Cannula 6 02/19/25 00:00 Nasal Cannula 6 02/18/25 22:53 Nasal Cannula 6 Laboratory Results 02/16/25 05:12 02/16/25 05:12 PG Care Time/CCT Total # of Minutes Spent Total Time Spent with Patient: Total time spent is greater than 50% in coordination of care (as documented) at patient's floor/unit and/or counseling patient: Coding Level of Care Code 24020 SUB INP/OBS CARE 2/35MIN Diagnoses Atrial fibrillation with rapid ventricular response I48.91 COPD (chronic obstructive pulmonary disease) J44.9 COPD type: unspecified COPD Pulmonary hypertension I27.[address] R93.89 Acute and chronic respiratory failure with hypoxia J96.21
--- NOTE | 2025-02-19 12:18 | Hospitalist Progress Note ---
Date of Service February 19, 2025 Assessment & Plan (1) COPD exacerbation: Plan: fluticasone/vilant xopenex solumedrol 40mg IV daily cefepime/azithromcyin empiric treatment for PNA, d/c'd as no signs of infection pt on 5LNC baseline at rest pulmonary consult appreciated recommended adding Spiriva upon d/c Solu-medrol d/c'd and prednisone for one more day then d/c Awaiting d/c to rehab once accepted (2) CHF (congestive heart failure): Plan: lasix spironolactone Pt had exacerbation 2n to afib with RVR upon admisison Improved with diuresis (3) Type 2 diabetes mellitus: Plan: RISS (4) Atrial fibrillation with RVR: Plan: -Cardizem for rate control -coumadin (5) HTN (hypertension): Plan: PT/OT recommending d/c to subacute rehab Will await sample case porter follow up on 02/20 for discharge to rehab Admission and Anticipated Discharge Date Admission Date: February 15, 2025 Subjective No events overnight. Pt resting in bed, appears breathing at baseline. Review of Systems Review of Systems: CONST: Negative for fever, body aches and chills. HENT: Negative for neck pain/stiffness, headache, congestion, sore throat, swelling. EYES: Negative for discharge/pain or vision changes. RESP: Negative for cough/hemoptysis and shortness of breath. CV: Negative chest pain, difficulty breathing, palpitations. ABD: Negative pain, nausea, vomiting. : Negative increase frequency, dysuria, blood in urine or stool. MUSC: Negative for muscle aches, edema. SKIN: Negative rash, lesions/sores. NEURO: Negative headache, dizziness, weakness. Constitutional: no fever Eyes: no blind spots Ear, Nose, Mouth, Throat: no ear pain Respiratory: + cough and + dyspnea Cardiovascular: no chest pain Gastrointestinal: no abdominal pain Genitourinary: no dysuria Musculoskeletal: no back pain Integumentary: no acne Neurologic: no gait abnormality Psychiatric: no behavioral changes Endocrine: no fatigue Hematologic / Lymphatic: no easy bleeding Allergy / Immunological: no GI upset with certain foods Physical Exam Physical Exam: GENERAL APPEARANCE NAD, activity normal for age, well developed/ well nourished, no cyanosis, pallor, or diaphoresis. EYES lids/conjunctiva normal. EARS/NOSE/THROAT Mucous membranes moist, nares normal, lips/teeth normal uvula midline without oral pharyngeal erythema, exudate or swelling TMs normal bilaterally. No lymphangitis/lymphedema. HEAD/NECK normocephalic atraumatic, no facial trauma, neck is supple. RESPIRATORY respiratory effort normal, speaks in full sentences, no tripod position, no accessory muscle use. Lungs clear to auscultation without rhonchi, wheezes, rales CARDIAC Regular rate and rhythm, no edema. ABDOMINAL Soft, ND/NT. No evidence of fluid wave. No pulsatile masses on exam, rebound tenderness, Varma sign or pain over Mcburney's point. MUSCLES/EXTREMITIES No abnormal range of motion, no swelling. SKIN Warm, pink and dry. No rashes, dermatoses, petechiae or lesions. NEUROLOGICAL Speech is clear and appropriate. Normal level of consciousness. Gait and coordination are normal. 5/5 strength in all extremities. PSYCH Normal mood and affect. Judgement/competence is appropriate Results & Data Results & Data Vital Signs (Past 12 Hours) Vital Signs Temp Pulse Pulse Resp BP Pulse Ox O2 Del Method 02/19/25 11:24 36.6 C 117 H 20 126/81 95 Nasal Cannula 02/19/25 08:35 Nasal Cannula 02/19/25 07:39 36.4 C L 114 H 18 109/75 91 Nasal Cannula 02/19/25 07:33 107 H 21 99 Nasal Cannula 02/19/25 02:52 36.6 C 102 H 21 117/66 99 Nasal Cannula 02/19/25 01:19 104 H 20 100 Nasal Cannula 02/19/25 00:22 127 H O2 Flow Rate 02/19/25 11:24 6 02/19/25 08:35 5 02/19/25 07:39 6 02/19/25 07:33 6 02/19/25 02:52 6 02/19/25 01:19 6 02/19/25 00:22 PG Care Time/CCT Total # of Minutes Spent Total Time Spent with Patient: Total time spent is greater than 50% in coordination of care (as documented) at patient's floor/unit and/or counseling patient: Coding Level of Care Code 84239 SUB INP/OBS CARE 2/35MIN Diagnoses COPD exacerbation J44.1 Acute on chronic right-sided congestive heart failure I50.813 Heart failure chronicity: acute on chronic Heart failure type: right-sided Type 2 diabetes mellitus E11.9 Atrial fibrillation with RVR I48.91 HTN (hypertension) I10 (2) CHF (congestive heart failure) Heart failure chronicity: acute on chronic Heart failure type: right-sided Qualified Code(s): I50.813 - Acute on chronic right heart failure
[2025-02-19] MEDS: POLYETHYLENE (MIRALAX) 17 GM PACK PO PRN (20:51)
[2025-02-20 06:47] LABS: INR 2.1 (0.9-1.1); Prothrombin Time 21.1 Seconds (9.0-12.0)
--- NOTE | 2025-02-20 09:26 | XRay Report ---
XR chest 2V PA/lateral HISTORY: 84 years-old Male exac COPD acute shortness of breath COMPARISON: February 15, [address], CT chest 04/08/2023 TECHNIQUE: PA and lateral views of the chest FINDINGS: Cardiac mediastinal and hilar silhouettes are unchanged. Hyperinflation with diaphragmatic flattening . Emphysema and chronic interstitial coarsening again noted. Trace pleural effusions with mild subseg mental bibasilar densities. Atherosclerosis of the aorta. Biapical pleural parenchymal scarring. Dege nerative changes of the shoulders and spine. Nodular densities of the lungs are better seen on the pr ior CTA of the chest. IMPRESSION: 1. Trace pleural effusions with mild bibasilar densities, likely atelectatic. 2. Emphysema with chronic interstitial coarsening. 3. Biapical pleural parenchymal scarring redemonstrated. Nodular foci the lungs are better evaluated on the 04/08/2023 CTA of the chest. ACT 112: Negative or not required by law. The above report was generated using voice recognition software. It may contain grammatical, syntax o r spelling errors. Electronically signed by: Mukesh Mas M.D. 02/20/2025 9:24 AM
--- NOTE | 2025-02-20 16:12 | Hospitalist Progress Note ---
Date of Service February 20, 2025 Assessment & Plan (1) COPD exacerbation: Plan: Improved since admission. Continue bronchodilators. Continue prednisone. CHF has been treated and atrial fibrillation rate needs better control. Appreciate pulmonary medicine consultation and recommendations (2) CHF (congestive heart failure): Plan: Acute on chronic diastolic CHF. Present on admission and now resolved. Continue current therapy. Monitor intake and output (3) Type 2 diabetes mellitus: Plan: ADA diet. Sliding scale insulin coverage. (4) Atrial fibrillation with RVR: Plan: Diltiazem dosage uptitrated today, February 20, for better ventricular rate control. Continue Coumadin therapy. Telemetry (5) HTN (hypertension): Plan: Stable. Continue current medical management Plan [facility] denied to except the patient. Case management is pursuing SNF placement at [facility]. Hopefully within the next day or 2 Admission and Anticipated Discharge Date Admission Date: February 15, 2025 Subjective Alert and oriented. No distress. Diltiazem dosage uptitrated to control atrial fibrillation rate. Unfortunately, [facility] refused to accept the patient in transfer. Case management pursuing SNF referral at [facility]. Chest x-ray repeated today, February 20, looks stable. He remains on 5 L oxygen which is his baseline. Review of Systems 2 Review of Systems: Constitutionalno fever or chills ENTno blurred vision, no double vision, no epistaxis, no sore throat Respiratoryno cough, no wheezing. He does have mild shortness of breath at rest and dyspnea on exertion Cardiacno palpitations, no chest pain, no syncope Erasmo nausea, vomiting, diarrhea, melena, hematochezia GUno urinary retention, no urinary incontinence, no dysuria, no hematuria Musculoskeletalno joint pain, no muscle tenderness Skinno bruising, no rashes, no pruritus Neurono isolated weakness, no paresthesia, no weakness Psychno depression, no anxiety Physical Exam 2 Physical Exam: General-alert and oriented x3, no fever, no chills HEENT-head atraumatic and normocephalic, pupils equal and reactive to light, extraocular muscles intact Neck-no lymphadenopathy or thyromegaly, trachea midline Chest-diminished breath sounds bilaterally. Mild tachypnea at rest. No inspiratory rales. No wheezing Cardiac-mildly tachycardic rate and irregular rhythm. Normal S1 and S2 Abdomen-normal bowel sounds, no hepatosplenomegaly Extremities-no cyanosis, clubbing, or edema Neuro-cranial nerves II through XII intact, motor and sensory function within normal limits, strength symmetrical, no focal deficits Psych-normal affect, normal mood Results & Data Results & Data Vital Signs (Past 12 Hours) Vital Signs Temp Pulse Resp BP BP Pulse Ox O2 Del Method 02/20/25 15:39 36.5 C 112 H 17 104/68 94 Nasal Cannula 02/20/25 12:54 119 H 90 Nasal Cannula 02/20/25 10:36 36.3 C L 96 H 19 110/73 98 Nasal Cannula 02/20/25 07:19 Nasal Cannula 02/20/25 07:16 36.6 C 96 H 22 95/52 L 96 Nasal Cannula 02/20/25 06:49 102 H 20 92 Nasal Cannula O2 Flow Rate 02/20/25 15:39 6 02/20/25 12:54 6 02/20/25 10:36 6 02/20/25 07:19 5 02/20/25 07:16 6 02/20/25 06:49 6 Laboratory Results 02/16/25 05:12 02/16/25 05:12 PG Care Time/CCT Total # of Minutes Spent Total Time Spent with Patient: Total time spent is greater than 50% in coordination of care (as documented) at patient's floor/unit and/or counseling patient: Coding Level of Care Code 35450 SUB INP/OBS CARE 3/50MIN Diagnoses COPD exacerbation J44.1 Acute on chronic right-sided congestive heart failure I50.813 Heart failure chronicity: acute on chronic Heart failure type: right-sided Type 2 diabetes mellitus E11.9 Atrial fibrillation with RVR I48.91 HTN (hypertension) I10 (2) CHF (congestive heart failure) Heart failure chronicity: acute on chronic Heart failure type: right-sided Qualified Code(s): I50.813 - Acute on chronic right heart failure
[2025-02-20] MEDS: DIGOXIN 500 MCG in SYRINGE 8 ML IV STA (18:28)
[2025-02-20] MEDS: DIGOXIN 125 MCG in SYRINGE 9.5 ML IV ONE (22:27)
[2025-02-21 05:59] LABS: Anion Gap 5.0 (3-11); Blood Urea Nitrogen 54.0 mg/dl (6-23); Calcium 8.2 mg/dl (8.6-10.3); Carbon Dioxide 24.0 mmol/L (21-32); Chloride 109.0 mmol/L (98-107); Creatinine Clr Calc Pharmacy 28.3 ml/min; Glucose 88.0 mg/dl (70-99(Fasting)); Potassium 4.4 mmol/L (3.5-5.1); Sodium 138.0 mmol/L (136-145)
[2025-02-21 06:09] LABS: INR 2.2 (0.9-1.1); Prothrombin Time 22.4 Seconds (9.0-12.0)
[2025-02-21 07:05] VITALS: TEMP 97.5
[2025-02-21 07:22] VITALS: RESP 20; O2SAT 92
[2025-02-21] MEDS: FUROSEMIDE 80 MG TAB PO SCH (09:07)
--- NOTE | 2025-02-21 11:07 | Discharge Summary ---
Discharge Summary Date of Service February 21, 2025 Principal Dx & Hospital Course #1 = Principal Diagnosis (1) COPD exacerbation: Improved since admission. Continue home bronchodilators. Continue prednisone in a tapering dose fashion at discharge. CHF has been treated and atrial fibrillation rate is now under control. Appreciate pulmonary medicine consultation and recommendations (2) CHF (congestive heart failure): Acute on chronic diastolic CHF. Present on admission and now resolved. Continue current therapy. Monitor intake and output (3) Type 2 diabetes mellitus: ADA diet. Sliding scale insulin coverage. (4) Atrial fibrillation with RVR: Diltiazem dosage uptitrated on February 20 and digoxin was started for better ventricular rate control. Continue Coumadin therapy. Telemetry (5) HTN (hypertension): Stable. Continue current medical management Plan Discharge to [facility] today, February 21 Admission HPI Per Admitting Provider 84 yo male with PMH of known end-stage COPD on 5LPM at rest and 7LPM O2 on exe rtion who presents to the ER due to shortness of breath. The patient reports his symptoms started suddenly yesterday evening but much worse today. No fever or chills. No cough. No chest pain. No coughing/choking after eating (noted food bolus stuck in esophagus in March 2023). Patient denies any sick contacts. Patient currently wearing an oxymask and states feeling better since being admitted. Discharge Exam General-alert and oriented x3, no fever, no chills HEENT-head atraumatic and normocephalic, pupils equal and reactive to light, e xtraocular muscles intact Neck-no lymphadenopathy or thyromegaly, trachea midline Chest-diminished breath sounds bilaterally. No inspiratory rales. No wheezing Cardiac-irregularly irregular rhythm with controlled rate. Normal S1 and S2 Abdomen-normal bowel sounds, no hepatosplenomegaly Extremities-no cyanosis, clubbing, or edema Neuro-cranial nerves II through XII intact, motor and sensory function within normal limits, strength symmetrical, no focal deficits Psych-normal affect, normal mood Discharge Plan Discharge Items Patient Disposition: Transfer [facility] Fac Reason For Visit: COPD EXACERBATION Discharge Diagnosis: Exacerbation COPD, acute on chronic diastolic congestive heart failure, chronic atrial fibrillation with rapid ventricular rate, community-acquired pneumonia Condition on Discharge: Fair Activity: Resume your previous activity Non-emergency contact: Primary Care Provider Call non-emergency contact if: your symptoms worsen Follow-up/Referrals: Arun Alexandre [Primary Care Provider] - Diet: Carb Consistent or DM2 and Heart Healthy Addtl Attending Provider Instructions: Take prednisone in a tapering dose fashion over the next 6 days until it is gone. Digoxin is a new medication to help control the heart rate. Diltiazem CD dosage has been increased. Lasix oral dosage has been increased. Pending Studies at Discharge: No Stand-Alone Forms: My [facility] Skilled Items Patient informed of condition?: Yes DNR: Yes Discharge Level of Care: Skilled Communicable Disease: No Discharge Prognosis: Stable Lines: None Urinary Catheter: No Medications and DC Order Prescriptions: New diltiazem HCl 180 mg Capsule,Extended Release 24hr 180 mg PO QAM Qty: 20 0RF digoxin [Digitek] 125 mcg (0.125 mg) Tablet 0.125 mg PO DAILY@1600 Qty: 20 0RF prednisone 10 mg tablet See Rx Instructions .ROUTE .COMPLEX Qty: 12 0RF Rx Instructions: 10 mg orally 3 times a day for 2 days, then 10 mg twice a day for 2 days, then 10 mg once a day for 2 days, then stop Continued tamsulosin 0.4 mg capsule 0.4 mg PO QAM fluticasone propion-salmeterol [Advair Diskus] 250-50 mcg/dose blister with device 1 inh inhalation BID Rx Instructions: Rinse mouth with water after use. montelukast 10 mg Tablet 10 mg PO QAM PreserVision AREDS-2 250-90-40-1 mg Capsule 2 tab PO QDD (DME) Oxygen Home Liters Per Minute See Rx Instructions .ROUTE .MEDSUPPLY Qty: 1 0RF Rx Instructions: 3 liters continuously. warfarin 5 mg tablet 5 mg PO HS Rx Instructions: or as directed by anticoagulation clinic furosemide 40 mg tablet 40 mg PO QAM doxepin 10 mg capsule 10 mg PO HS ipratropium-albuterol 0.5 mg-3 mg(2.5 mg base)/3 mL solution for nebulization 3 ml INHALATION BID magnesium glycinate 100 mg magnesium Capsule 200 mg PO HS metformin 500 mg tablet 500 mg PO BID spironolactone 25 mg tablet 12.5 mg PO QAM albuterol sulfate 90 mcg/actuation HFA aerosol inhaler 2 puff INHALATION Q6H PRN (Reason: sob/wheezing) dapagliflozin propanediol [Farxiga] 10 mg Tablet 10 mg PO QAM Discontinued diltiazem HCl 120 mg capsule,ext.rel 24h degradable 120 mg PO QAM Discharge Orders: Discharge Order- CHF (Routine); Ordered 02/21/25 Ordered By: Earl Joshi/Other Patient Handouts: Managing Type 2 Diabetes Admission Data Admit Date/Time: 02/15/25 22:11 Attending Provider: Earl Aaron Admit Provider: Elan Charles Primary Care Provider: Arun Alexandre Other Providers: David Cagle; [facility] Stay Data Consultations 02/18/25 10:11 Consult Pulmonology Routine Pending Results Patient Have Any Pending Studies at Discharge: No Discharge Instructions Given to Patient (Per Discharging Provider) Take prednisone in a tapering dose fashion over the next 6 days until it is gone. Digoxin is a new medication to help control the heart rate. Diltiazem CD dosage has been increased. Lasix oral dosage has been increased. Total Time Total Time Spent Total Time Spent (In Minutes): 50 minutes Coding Level of Care Code 42392 INP/OBS DISCH >30 MIN Diagnoses COPD exacerbation J44.1 Acute on chronic right-sided congestive heart failure I50.813 Heart failure chronicity: acute on chronic Heart failure type: right-sided Type 2 diabetes mellitus E11.9 Atrial fibrillation with RVR I48.91 HTN (hypertension) I10
[2025-02-21 11:47] VITALS: BP 104/68; PULSE 114
[2025-02-21] MEDS ORDERED: DIGOXIN 0.125 MG TAB PO SCH (16:00)
== END 2025-02-21 12:03 | DRG 189 ==
LOC: ED 20:01 → SUATTDRO 22:11 → 4W 22:11

== ENCOUNTER 2025-03-09 09:32 | Inpatient (IN) ==
--- NOTE | 2025-03-09 09:57 | Emergency Department Note ---
Impression & Plan Acute hypoxic respiratory failure, Shortness of breath ED Provider Note NAME: DESIRAE GARCIA AGE: 84 SEX: M : 1940 ARRIVES VIA: Ambulance INFORMANT: Patient ED PROVIDER(S): Jarocho Sevilla DO CHIEF COMPLAINT: Shortness of breath HPI: Patient is an 84-year-old male who presents ER for shortness of breath with a past medical history of COPD, CHF chronically on 6 L nasal cannula. They noted that he became more short of breath yesterday. He admits to starting to have a cough yesterday. He has been unable to catch his breath since then. Denies any headache or change in vision. Does admit to taking Coumadin. No belly pain, nausea, vomiting or diarrhea. No dysuria, urgency or frequency. EMS notes that when they arrived he was in the 60s and they placed him on 10 L and brought him in. He was given 40 mg of steroids in combination with 2 DuoNebs and does feel slightly better. ADDITIONAL HISTORY OBTAINED: Per HPI Chronic Medical/Social Conditions Affecting Care: Per HPI PAST MEDICAL HISTORY:See Below PAST SURGICAL HISTORY:See Below FAMILY HISTORY:See Below SOCIAL HISTORY:See Below HOME MEDICATIONS:See Below ALLERGIES:See Below VITALS:See Below PHYSICAL EXAMINATION: GENERAL: Sitting up in bed, alert, ill-appearing, moderate distress EYE EXAM: normal conjunctiva. OROPHARYNX: mucous membranes are moist NECK: supple, no nuchal rigidity, no adenopathy, non-tender LUNGS: Faint wheezing bilaterally with poor air movement. Normal chest wall mechanics HEART: no murmurs, S1 normal and S2 normal ABDOMEN: abdomen soft, non-tender, normo-active bowel sounds, no masses, no rebound or guarding. UPPER EXTREMITIES: upper extremities are grossly normal. LOWER EXTREMITIES: No pitting edema. Calves are equal bilaterally NEURO EXAM: Normal sensorium, cranial nerves II-XII grossly intact, normal speech, no gross weakness of arms, no gross weakness of legs. MEDICAL DECISION MAKING: Patient is a 84-year-old male who presents ER for the above-stated complaint. Patient is chronically on 6 L nasal cannula. He does take Coumadin. IV was established and blood work was obtained. Labs show faint leukocytosis of 12,000 with a hemoglobin of 12. INR 2.1. This in combination with his shortness of breath PE was not explored as he is therapeutic. VBG with a pH of 7.36, bicarb of 29 with a CO2 of 51. Patient upon arrival was placed on BiPAP. He was already given steroids Solu-Medrol 40 mg prior to arrival in combination with DuoNebs and his respiratory rate improved. BMP with a creatinine of 1.6. LFTs bilirubin was unremarkable. Troponin was negative. Viral panel was negative. Chest x-ray was unremarkable. Patient was given hour-long albuterol. Updated bedside and discussed with the hospitalist for further evaluation management treatment. Consults/Care Managements Discussions: Per [facility] Triage Nursing notes reviewed. Limited review of prior medical records performed Vital Signs: reviewed and remarkable for hypoxic Differential diagnosis: Differential diagnoses includes but is not limited to pneumonia, bronchitis, COPD/Asthma exacerbation, pneumothorax, pulmonary embolism, congestive heart failure, acute coronary syndrome ER treatment provided: See below Diagnostics interpreted by me include EKG and cardiac monitoring as listed below: -Cardiac Monitoring: An order was placed for continuous cardiac monitoring. The monitor shows a rate of 110 with AFIB rhythm. -ECG: A-fib rate 104 Normal axis PVCs QTc 426 -Laboratory studies:Interpreted by me as stated above in MDM and shown below. Imaging studies: Xrays: As interpreted by me: Portable AP upright 1 view of the chest shows no focal infiltrate CTs show: none Procedures:none Critical Care: I have personally spent 33 minutes of critical care time in the direct management of this patient. This includes bedside care, interpretation of diagnostic studies, and testing, discussion with consultants, patient, and family members, and other required patient management activities. This 33 minutes is in excess of all separately billable procedures. Past Med/Surg History Problem List (Updated 03/09/25 @ 13:43 by Jarocho Sevilla DO) Shortness of breath (Acute) Acute hypoxic respiratory failure (Acute) Atrial fibrillation with rapid ventricular response (Acute) Bladder mass BPH w urinary obs/LUTS Urinary retention Lab test positive for detection of COVID-19 virus COVID-19 Hypoxia (Acute) COPD exacerbation CHF (congestive heart failure) (Acute) COPD (chronic obstructive pulmonary disease) (Acute) JOSEFINA (acute kidney injury) Type 2 diabetes mellitus Esophageal dysmotility Atrial fibrillation with RVR (Acute) Abnormal chest CT Pulmonary hypertension Aspiration into airway Acute and chronic respiratory failure with hypoxia (Acute) COPD (chronic obstructive pulmonary disease) Acute respiratory failure with hypoxia Aspiration pneumonia Food impaction of esophagus Emphysema of lung (Chronic) HTN (hypertension) (Chronic) Dyslipidemia (Chronic) CAD (coronary artery disease) (Chronic) Medical History Elevated serum creatinine Hyperkalemia Acute diastolic CHF (congestive heart failure) DVT prophylaxis Lower extremity edema Family History Other Family history non-contributory Social History Smoking Status: Former smoker Tobacco Type: Cigarettes and Smokeless Tobacco (Dip or Chew) Second Hand Exposure: No; Do You Dip or Chew Tobacco: Yes; Hx Alcohol Use: No Hx Substance Use: No Preferred Language: French Communication Ability: Effective School Crossing Guard Required: No Beliefs That Will Affect Care: None marital status: Current Living Situation: Spouse Current Living Situation Comment: lives at home with , son checks in regularly current occupational status: retired Feels Safe at Home: Yes Assistive Devices: Oxygen - Continuous and Walker Allergies Allergies Allergy/AdvReac Type Severity Reaction Status Date / Time pollen extracts Allergy Mild Sneezing Verified 03/09/25 12:01 isosorbide [From Imdur] Allergy Unknown Verified 03/09/25 12:01 Home Meds Home Medications Medication Instructions Recorded Confirmed fluticasone 250 mcg-salmeterol 50 1 inh inhalation BID 04/07/19 02/15/25 mcg/dose blistr powdr for inhalation (Advair Diskus) montelukast 10 mg tablet 10 mg PO QAM 05/10/20 02/15/25 vit C 250 mg-vit E 90 mg-zinc 40 2 tab PO QDD 04/05/23 02/15/25 mg-copper 1 [id number] capsule (PreserVision AREDS-2) albuterol sulfate 90 mcg/actuation 2 puff inhalation Q6H PRN 10/29/23 02/15/25 aerosol inhaler sob/wheezing dapagliflozin propanediol 10 mg 10 mg PO QAM 10/29/23 02/15/25 tablet (Farxiga) metformin 500 mg tablet 500 mg PO BID 10/29/23 02/15/25 spironolactone 25 mg tablet 12.5 mg PO QAM 10/29/23 02/15/25 tamsulosin 0.4 mg capsule 0.4 mg PO QAM 12/17/23 02/15/25 doxepin 10 mg capsule 10 mg PO HS 02/15/25 02/15/25 furosemide 40 mg tablet 40 mg PO QAM 02/15/25 02/15/25 ipratropium 0.5 mg-albuterol 3 mg 3 ml inhalation BID 02/15/25 02/15/25 (2.5 mg base)/3 mL nebulization soln magnesium glycinate 200 mg PO HS 02/15/25 02/15/25 warfarin 5 mg tablet 5 mg PO HS 02/15/25 02/15/25 Previous Rx's Medication Instructions Recorded Oxygen Home #1 ea 04/14/23 digoxin 125 mcg (0.125 mg) tablet 0.125 mg PO DAILY@1600 #20 tabs 02/21/25 (Digitek) diltiazem HCl 180 mg 180 mg PO QAM #20 caps 02/21/25 capsule,extended release 24 hr prednisone 10 mg tablet See Rx Instructions .Route 02/21/25 .COMPLEX #12 tabs Results & Data (ED) Vital Signs Vital Signs - 24 hr 03/09/25 09:46 03/09/25 09:47 03/09/25 09:50 Temperature 36.7 C Temperature Source Axillary Pulse Rate 94 H 108 H Pulse Rate [Left Finger] Pulse Rate from SpO2 Sensor Respiratory Rate 32 H 37 H Respiratory Effort / Characteristics Labored Labored Spontaneous Respiratory Depth Deep Respiratory Pattern Regular Tachypnea Blood Pressure 91/65 L Blood Pressure Mean 73 Pulse Oximetry 92 98 Oxygen Delivery Method Nasal Cannula Oxygen Flow Rate 9 Fraction of Inspired Oxygen 45 Sepsis Recent Fever Within 48 Hours No Sepsis New/Unexplained Change in Mental Status No Sepsis Action Taken by Nursing Physician Notified 03/09/25 10:04 03/09/25 10:14 03/09/25 10:17 Temperature Temperature Source Pulse Rate 117 H Pulse Rate [Left Finger] 105 H Pulse Rate from SpO2 Sensor Respiratory Rate 36 H Respiratory Effort / Characteristics Spontaneous Respiratory Depth Respiratory Pattern Blood Pressure Blood Pressure Mean Pulse Oximetry 97 92 Oxygen Delivery Method BiPAP Nasal Cannula Oxygen Flow Rate 9 Fraction of Inspired Oxygen 45 Sepsis Recent Fever Within 48 Hours Sepsis New/Unexplained Change in Mental Status Sepsis Action Taken by Nursing 03/09/25 10:31 03/09/25 10:57 03/09/25 11:00 Temperature Temperature Source Pulse Rate 105 H 99 H 98 H Pulse Rate [Left Finger] Pulse Rate from SpO2 Sensor Respiratory Rate 19 17 26 H Respiratory Effort / Characteristics Spontaneous Respiratory Depth Respiratory Pattern Blood Pressure 104/63 97/51 L Blood Pressure Mean 80 73 Pulse Oximetry 96 95 96 Oxygen Delivery Method BiPAP Oxygen Flow Rate Fraction of Inspired Oxygen 40 Sepsis Recent Fever Within 48 Hours Sepsis New/Unexplained Change in Mental Status Sepsis Action Taken by Nursing 03/09/25 11:06 03/09/25 11:33 Temperature Temperature Source Pulse Rate 103 H 101 H Pulse Rate [Left Finger] Pulse Rate from SpO2 Sensor 106 H 106 H Respiratory Rate 16 18 Respiratory Effort / Characteristics Respiratory Depth Respiratory Pattern Blood Pressure 100/48 L 131/70 Blood Pressure Mean 65 90 Pulse Oximetry 96 95 Oxygen Delivery Method Oxygen Flow Rate Fraction of Inspired Oxygen Sepsis Recent Fever Within 48 Hours Sepsis New/Unexplained Change in Mental Status Sepsis Action Taken by Nursing Laboratory Data 03/09/25 10:08 03/09/25 10:08 Lab Results 03/09/25 03/09/25 03/09/25 Range/Units 10:08 10:09 10:40 WBC 12.04 H (4.8-10.8) K/ul RBC 3.99 L (4.70-6.10) M/uL Hgb 12.6 L (14.0-18.0) g/dl Hct 38.6 L (42.0-52.0) % MCV 96.7 (80.0-100.0) fL MCH 31.6 (25.0-34.0) pg MCHC 32.6 (32.0-36.0) g/dL RDW Std Deviation 53.4 H (36.4-46.3) fL RDW Coeff of Whitney 15.2 H (11.5-14.5) % Plt Count 219 (130-400) K/uL MPV 10.9 (9.4-12.4) fL Immature Gran % (Auto) 0.5 % Neut % (Auto) 71.9 % Lymph % (Auto) 18.4 % Leslie % (Auto) 7.0 % Eos % (Auto) 1.9 % Baso % (Auto) 0.3 % Neut # (Auto) 8.65 H (1.40-6.50) K/uL Lymph # (Auto) 2.22 (1.20-3.40) K/uL Leslie # (Auto) 0.84 H (0.11-0.59) K/uL Eos # (Auto) 0.23 (0.00-0.50) K/uL Baso # (Auto) 0.04 (0.00-0.20) K/uL Immature Gran # (Auto) 0.06 (0.01-0.20) K/uL PT 21.2 H (9.0-12.0) Seconds INR 2.1 H (0.9-1.1) VBG pH 7.36 (7.36-7.41) VBG pCO2 51 H (38-50) mmHg VBG pO2 24 mmHg VBG HCO3 29 mmol/L VBG O2 Saturation < 60.0 % VBG Base Excess 2.4 mEq/L Sodium 136 (136-145) mmol/L Potassium 4.7 (3.5-5.1) mmol/L Chloride 103 (98-107) mmol/L Carbon Dioxide 26 (21-32) mmol/L Anion Gap 7 (3-11) BUN 38 H (6-23) mg/dl Creatinine 1.62 H (0.6-1.4) mg/dl Est Cr Clr Drug Dosing Not Reportable eGFR 41.86 BUN/Creatinine Ratio 23.5 H (10-20) Glucose 131 H (70-99(Fasting)) mg/dl Calcium 8.7 (8.6-10.3) mg/dl Total Bilirubin 0.6 (0.2-1.0) mg/dl AST 13 (13-39) U/L ALT 17 (7-52) U/L Alkaline Phosphatase 77 (34-104) U/L Troponin I High Sens 16.3 (0-20) pg/ml B-Natriuretic Peptide 321 H (0-100) pg/ml Total Protein 6.8 (6.0-8.3) gm/dl Albumin 3.4 (3.4-5.0) gm/dl Globulin 3.4 (2.5-4.0) gm/dl Albumin/Globulin Ratio 1.0 (0.9-2) Lipase 20 (11-82) U/L SARS-CoV-2 (PCR) NEGATIVE (Negative) Influenza Type A (PCR) Negative (Neg) Influenza Type B (PCR) Negative (Neg) RSV (RT-PCR) Negative (Neg) Administered Medications Discontinued Medications Albuterol (Albuterol 0.083% Nebu Soln 3 Ml Vial) 10 mg NEB NOW STA; Protocol Stop: 03/09/25 09:49 Last Admin: 03/09/25 10:03 Dose: 10 mg Documented By: YOLY Imaging Data Radiologist's Impression: Chest X-Ray 03/09/25 09:48 XR chest 1V portable CLINICAL HISTORY: Chest pain, nonspecific COMPARISON STUDY: 02/20/2025 FINDINGS: Heart size and pulmonary vasculature are normal. Stable hyperexpanded lungs. There is stable mild stranding opacity at the lung bases. No other consolidation or pleural effusion. No pneumothorax. IMPRESSION: Stable exam. ACT 112: Negative or not required by law. Electronically signed by: Chandana Shay M.D. 03/09/2025 10:14 AM Discharge Plan Visit Data Chief Complaint: Shortness of Breath/Dyspnea Stated Complaint: RESP. DISTRESS ED Provider: Jarocho Sevilla Discharge Problem: Acute hypoxic respiratory failure, Shortness of breath Patient Disposition: Admitted As Inpatient Condition: Serious Discharge Instructions Interventions: ED Discharge Assessment Last Done: 03/09/25 12:39
[2025-03-09] MEDS: ALBUTEROL 0.083% NEBU SOLN 3 ML VIAL NEB STA (10:03)
--- NOTE | 2025-03-09 10:15 | XRay Report ---
XR chest 1V portable CLINICAL HISTORY: Chest pain, nonspecific COMPARISON STUDY: 02/20/2025 FINDINGS: Heart size and pulmonary vasculature are normal. Stable hyperexpanded lungs. There is stabl e mild stranding opacity at the lung bases. No other consolidation or pleural effusion. No pneumothor ax. IMPRESSION: Stable exam. ACT 112: Negative or not required by law. Electronically signed by: Chandana Shay M.D. 03/09/2025 10:14 AM
[2025-03-09 10:19] LABS: Base Excess VBG 2.4 mEq/L; HCO3 VBG 29 mmol/L; Oxygen Saturation VBG < 60.0 %; PCO2 VBG 51 mmHg (38-50); PO2 VBG 24 mmHg; pH VBG 7.36 (7.36-7.41)
[2025-03-09 10:28] LABS: Hematocrit (blood only) 38.6 % (42.0-52.0); Hemoglobin 12.6 g/dl (14.0-18.0); Immature Granulocytes # (auto) 0.06 K/uL (0.01-0.20); Immature Granulocytes % (auto) 0.5 %; Mean Corpuscular Hemoglobin 31.6 pg (25.0-34.0); Mean Corpuscular Volume 96.7 fL (80.0-100.0); Platelet Count 219 K/uL (130-400); RDW Standard Deviation 53.4 fL (36.4-46.3); Red Blood Count 3.99 M/uL (4.70-6.10); White Blood Count 12.04 K/ul (4.8-10.8)
[2025-03-09 10:39] LABS: Alanine Aminotransferase 17 U/L (7-52); Albumin Globulin Ratio 1.0 (0.9-2); Alkaline Phosphatase 77 U/L (34-104); Anion Gap 7 (3-11); Bilirubin,Total 0.6 mg/dl (0.2-1.0); Blood Urea Nitrogen 38 mg/dl (6-23); Calcium 8.7 mg/dl (8.6-10.3); Carbon Dioxide 26 mmol/L (21-32); Chloride 103 mmol/L (98-107); Globulin 3.4 gm/dl (2.5-4.0); Glucose 131 mg/dl (70-99(Fasting)); Lipase 20 U/L (11-82); Potassium 4.7 mmol/L (3.5-5.1); Sodium 136 mmol/L (136-145); Total Protein 6.8 gm/dl (6.0-8.3)
[2025-03-09 10:52] LABS: INR 2.1 (0.9-1.1); Prothrombin Time 21.2 Seconds (9.0-12.0)
[2025-03-09 11:41] LABS: Influenza A virus by PCR Negative (Neg); Influenza B virus by PCR Negative (Neg); SARS CoV2 RNA(COVID-19) Ceph NEGATIVE (Negative)
--- NOTE | 2025-03-09 11:48 | History & Physical Report ---
Date of Service March 09, 2025 Assessment & Plan (1) Acute and chronic respiratory failure with hypoxia: Plan: Patient was brought to the hospital by EMS after he was found with a saturation of 70% on his baseline 6L of oxygen Chest x ray showed evidence of chronic hyperinflation of lungs He was started on BIPAP He said he felt a lot better afterwards (2) COPD (chronic obstructive pulmonary disease): Plan: I did not appreciate any wheeze on exam and patient said he was not wheezing at home Will resume his home meds Patience Dillon He was seen by Pulmonology during his last hospital admission3 weeks ago (3) HTN (hypertension): Plan: soft BP Hold anti hypertensives (4) Atrial fibrillation with RVR: Plan: Resume his home meds of Diltiazem and Digoxin and Warfarin Plan Admit to telemetry DNr/DNI History of Present Illness Chief Complaint: Shortness of breath Primary Care Provider: Arun Baldomero 84-year-old male with a history of COPD 6 months ago, heart failure with preserved ejection fraction, atrial fibrillation, who presents to the hospital today after he was found by EMS with a saturation of 70% 6 L oxygen. He was then brought to the hospital for further evaluation patient was discharged from this hospital 3 weeks ago after he was managed for COPD exacerbation Today in the emergency department, he was tachycardic and tachypneic. He was subsequently put on BiPAP I came to evaluate him, he stated he was feeling a lot better compared to when he came in Allergies Allergy/AdvReac Type Severity Reaction Status Date / Time pollen extracts Allergy Mild Sneezing Verified 11/18/23 15:33 isosorbide [From Imdur] Allergy Unknown Verified 12/17/23 08:21 Home Medications Medication Instructions Recorded Confirmed Type fluticasone 250 mcg-salmeterol 50 1 inh inhalation BID 04/07/19 02/15/25 History mcg/dose blistr powdr for inhalation (Advair Diskus) montelukast 10 mg tablet 10 mg PO QAM 05/10/20 02/15/25 History vit C 250 mg-vit E 90 mg-zinc 40 2 tab PO QDD 04/05/23 02/15/25 History mg-copper 1 [id number] capsule (PreserVision AREDS-2) Oxygen Home #1 ea 04/14/23 02/15/25 Rx albuterol sulfate 90 mcg/actuation 2 puff inhalation Q6H PRN 10/29/23 02/15/25 History aerosol inhaler sob/wheezing dapagliflozin propanediol 10 mg 10 mg PO QAM 10/29/23 02/15/25 History tablet (Farxiga) metformin 500 mg tablet 500 mg PO BID 10/29/23 02/15/25 History spironolactone 25 mg tablet 12.5 mg PO QAM 10/29/23 02/15/25 History tamsulosin 0.4 mg capsule 0.4 mg PO QAM 12/17/23 02/15/25 History doxepin 10 mg capsule 10 mg PO HS 02/15/25 02/15/25 History furosemide 40 mg tablet 40 mg PO QAM 02/15/25 02/15/25 History ipratropium 0.5 mg-albuterol 3 mg 3 ml inhalation BID 02/15/25 02/15/25 History (2.5 mg base)/3 mL nebulization soln magnesium glycinate 200 mg PO HS 02/15/25 02/15/25 History warfarin 5 mg tablet 5 mg PO HS 02/15/25 02/15/25 History digoxin 125 mcg (0.125 mg) tablet 0.125 mg PO DAILY@1600 #20 tabs 02/21/25 Rx (Digitek) diltiazem HCl 180 mg 180 mg PO QAM #20 caps 02/21/25 Rx capsule,extended release 24 hr prednisone 10 mg tablet See Rx Instructions .Route 02/21/25 Rx .COMPLEX #12 tabs Past Med/Surg History Problem List (Updated 02/16/25 @ 00:32 by Nils Baxter DO) Atrial fibrillation with rapid ventricular response (Acute) Bladder mass BPH w urinary obs/LUTS Urinary retention Lab test positive for detection of COVID-19 virus COVID-19 Hypoxia (Acute) COPD exacerbation CHF (congestive heart failure) (Acute) COPD (chronic obstructive pulmonary disease) (Acute) JOSEFINA (acute kidney injury) Type 2 diabetes mellitus Esophageal dysmotility Atrial fibrillation with RVR (Acute) Abnormal chest CT Pulmonary hypertension Aspiration into airway Acute and chronic respiratory failure with hypoxia (Acute) COPD (chronic obstructive pulmonary disease) Acute respiratory failure with hypoxia Aspiration pneumonia Food impaction of esophagus Emphysema of lung (Chronic) HTN (hypertension) (Chronic) Dyslipidemia (Chronic) CAD (coronary artery disease) (Chronic) Medical History Elevated serum creatinine Hyperkalemia Acute diastolic CHF (congestive heart failure) DVT prophylaxis Lower extremity edema Family History Other Family history non-contributory Social History Smoking Status: Former smoker Tobacco Type: Cigarettes and Smokeless Tobacco (Dip or Chew) Second Hand Exposure: No; Do You Dip or Chew Tobacco: Yes; Hx Alcohol Use: No Hx Substance Use: No Preferred Language: Lao Communication Ability: Effective Airway Controller Required: No Beliefs That Will Affect Care: None marital status: Current Living Situation: Spouse Current Living Situation Comment: lives at home with , son checks in regularly current occupational status: retired Feels Safe at Home: Yes Assistive Devices: Oxygen - Continuous and Walker Review of Systems Review of Systems: All systems reviewed are negative, apart from the ones contained in the history. Physical Exam Physical Exam: The patient is awake, alert and oriented 3, well developed and well nourished, normocephalic and atraumatic, lying in bed and in no acute distress. HEENT--PERRL, EOMI, mucous membranes and oropharynx mildly dry Neck--supple. No JVD. No bruits. Thyroid normal, trachea midline, no adenopathy. Heart--normal S1 and S2. No murmurs, rubs or gallops. Lungs--reduced air entry on auscultation Abdomen--normal bowel sounds and soft. Extremities--no cyanosis or clubbing. No edema. Dermatologic--normal skin turgor, normal color, no abnormal lymph nodes, no rash. Neurologic--cranial nerves II through XII grossly intact. Rheumatologic--normal range of motion. Psychiatric--normal affect. Results & Data Results & Data Vital Signs (Past 12 Hours) Vital Signs Temp Pulse Pulse Resp BP Pulse Ox O2 Del Method 03/09/25 11:00 98 H 26 H 97/51 L 96 BiPAP 03/09/25 10:57 99 H 17 95 03/09/25 10:31 105 H 19 104/63 96 03/09/25 10:17 92 Nasal Cannula 03/09/25 10:14 117 H 03/09/25 10:04 105 H 36 H 97 BiPAP 03/09/25 09:50 108 H 37 H 98 03/09/25 09:47 98.1 F 94 H 32 H 91/65 L 92 Nasal Cannula O2 Flow Rate FiO2 03/09/25 11:00 03/09/25 10:57 40 03/09/25 10:31 03/09/25 10:17 9 03/09/25 10:14 03/09/25 10:04 45 03/09/25 09:50 45 03/09/25 09:47 9 PG Care Time/CCT Total # of Minutes Spent Total Time Spent with Patient: Total time spent is greater than 50% in coordination of care (as documented) at patient's floor/unit and/or counseling patient: Coding Level of Care Code 64957 INT INP/OBS CARE 3/75MIN Diagnoses Acute and chronic respiratory failure with hypoxia J96.21 COPD (chronic obstructive pulmonary disease) J44.9 HTN (hypertension) I10 Atrial fibrillation with RVR I48.91 Time Spent (min) 75
[2025-03-09] MEDS: ALBUT/IPRATROP 3MG/0.5MG NEB 3 ML VIAL NEB SCH (13:59)
[2025-03-09] MEDS: DIGOXIN 0.125 MG TAB PO SCH (16:14)
[2025-03-09] MEDS: WARFARIN SOD 5 MG TAB PO SCH (20:06)
[2025-03-10 06:53] LABS: INR 1.9 (0.9-1.1); Prothrombin Time 19.5 Seconds (9.0-12.0)
[2025-03-10] MEDS: FUROSEMIDE 40 MG TAB PO SCH (08:03)
[2025-03-10] MEDS: FLUTICASONE/VILANTEROL 200/25MCG 14 PUFFS/INHALER INH SCH (08:03)
[2025-03-10] MEDS: MONTELUKAST SODIUM 10 MG TABLET PO SCH (08:03)
[2025-03-10] MEDS: TAMSULOSIN HCL 0.4 MG CAP PO SCH (08:03)
--- NOTE | 2025-03-10 11:54 | Hospitalist Progress Note ---
Date of Service March 10, 2025 Assessment & Plan (1) Acute and chronic respiratory failure with hypoxia: Plan: Patient was brought to the hospital by EMS after he was found with a saturation of 70% on his baseline 6L of oxygen Chest x ray showed evidence of chronic hyperinflation of lungs He was started on BIPAP and his SOB improved However overnight, his SOB got worse Now on high flow oxygen consult Pulmonology (2) COPD (chronic obstructive pulmonary disease): Plan: I did not appreciate any wheeze on exam and patient said he was not wheezing at home Will resume his home meds Duonebs, Advair He was seen by Pulmonology during his last hospital admission 3 weeks ago will reconsult (3) HTN (hypertension): Plan: soft BP Hold anti hypertensives (4) Atrial fibrillation with RVR: Plan: Resume his home meds of Diltiazem and Digoxin and Warfarin Plan Admit to telemetry DNr/DNI Admission and Anticipated Discharge Date Admission Date: March 09, 2025 Subjective Patient seen and examined, still short of breath Review of Systems Review of Systems: All systems reviewed are negative, apart from the ones contained in the history. Physical Exam Physical Exam: The patient is awake, alert and oriented 3, well developed and well nourished, normocephalic and atraumatic, lying in bed and in no acute distress. HEENT--PERRL, EOMI, mucous membranes and oropharynx mildly dry Neck--supple. No JVD. No bruits. Thyroid normal, trachea midline, no adenopathy. Heart--normal S1 and S2. No murmurs, rubs or gallops. Lungs--reduced air entry on auscultation Abdomen--normal bowel sounds and soft. Extremities--no cyanosis or clubbing. No edema. Dermatologic--normal skin turgor, normal color, no abnormal lymph nodes, no rash. Neurologic--cranial nerves II through XII grossly intact. Rheumatologic--normal range of motion. Psychiatric--normal affect. Results & Data Results & Data Vital Signs (Past 12 Hours) Vital Signs Temp Pulse Pulse Resp BP Pulse Ox O2 Del Method 03/10/25 08:25 High Flow Nasal Cannula 03/10/25 08:02 97.5 F L 100 H 22 98/50 L 89 L High Flow Nasal Cannula 07/25/25 07:18 82 03/10/25 07:13 85 13 96 03/10/25 07:13 84 13 96 BiPAP 03/10/25 03:11 97.5 F L 83 17 99/54 L 96 CPAP 03/10/25 02:01 85 19 97 03/10/25 01:59 81 23 97 BiPAP O2 Flow Rate FiO2 03/10/25 08:25 15 03/10/25 08:02 15 03/10/25 07:18 03/10/25 07:13 40 03/10/25 07:13 40 03/10/25 03:11 03/10/25 02:01 40 03/10/25 01:59 40 PG Care Time/CCT Total # of Minutes Spent Total Time Spent with Patient: Total time spent is greater than 50% in coordination of care (as documented) at patient's floor/unit and/or counseling patient: Coding Level of Care Code 14729 SUB INP/OBS CARE 2/35MIN Diagnoses Acute and chronic respiratory failure with hypoxia J96.21 COPD (chronic obstructive pulmonary disease) J44.9 HTN (hypertension) I10 Atrial fibrillation with RVR I48.91 Time Spent (min) 35
--- NOTE | 2025-03-10 12:22 | Pulmonary Consultation ---
Date of Consultation March 10, 2025 Assessment & Plan (1) Acute on chronic respiratory failure with hypoxemia: (2) Shortness of breath: (3) Atrial fibrillation with rapid ventricular response: (4) COPD (chronic obstructive pulmonary disease): COPD type: unspecified COPD Qualified Code(s): J44.9 - Chronic obstructive pulmonary disease, unspecified (5) Abnormal chest CT: (6) Pulmonary hypertension: (7) Emphysema of lung: Plan Chest x-ray 03/09/2025 personally reviewed: Portable film, good inspiratory effort, bilateral costophrenic angles are blunted, flattened diaphragm, no clear lung inflated appreciated PFT 05/29/2020 personally reviewed: Moderate obstructive lung dysfunction, insignificant bronchodilator response FVC 3.65 L 92%, FEV1 1.96 L 66%, FEV1/FVC 54%, RV 104%, TLC 86%, RV/TLC 116%, DLCO 42% 2D echo 10/28/2022: EF 55-59%, grade 1 diastolic dysfunction, mild MR, mild TR, PASP 44 mmHg, RV mildly dilated with normal function VBG 03/09/2025: 7.36/ CT chest 04/08/2023 personally reviewed: Bilateral apical pleural scarring more on the left side Severe centrilobular and paraseptal emphysema Left upper lobe 2.4 cm opacity Small bilateral pleural effusion No significant mediastinal lymphadenopathy -- Acute on chronic hypoxic respiratory failure On 6 L oxygen at home No wheezing appreciated on physical exam Likely secondary to HFpEF Respiratory bio fire negative for COVID-19, influenza A/B as well as RSV on 03/09/2025 BNP 321 -- COPD with emphysema Gold E On Advair 250 at home along with montelukast Following up with Dr. 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 Plan: Continue with diuretics to keep the patient negative balance Recommend strict ins and outs Will add Incruse inhaler to his regimen while in the hospital On discharge recommend Spiriva to be added to his regimen of Advair and montelukast The patient spirometry does show severe obstructive lung dysfunction but he is usually not able to tolerate BiPAP I do think that he would benefit from AVAPS, unless he is willing to use BiPAP in the hospital I would not pursue AVAPS at home. I spent more than 75 minutes looking in the chart, images, discussing the plan of care with the patient, RN as well as primary team Please note the above document was generated using voice recognition software. It may contain grammatical, syntax or spelling errors.Any formal questions or concerns about the content, text or information contained within the body of this dictation should be directly addressed to the provider for clarification. History of Present Illness Attending Physician: Nadya Gardner MD History of Present Illness 84-year-old male was admitted to the hospital because of shortness of breath Past medical history: Hypertension, dyslipidemia, COPD on 6 L oxygen at home Pulmonary consulted for increasing oxygen requirement Patient's RN was in the room at the time of examination Patient was recently discharged to a rehab, he started complaining of shortness of breath over there and was admitted to the hospital At the time of examination he was on BiPAP 12/5, getting tidal volumes of 1100 saturating 97% on 40% FiO2. I decreased the BiPAP to 9/5 and FiO2 was decreased to 30%. Patient stated that he is feeling better compared to when he was at the hospital He also was given Lasix when he came in he is diuresed well. Denied any change in his cough or phlegm. No chest pain, no dizziness, no palpitation No dysuria, no diarrhea No hemoptysis No nausea or vomiting He is compliant with his inhalers at home Social history: [id number] smoking history, quit a long time ago Denies any history of lung cancer in the family Allergies Allergy/AdvReac Type Severity Reaction Status Date / Time pollen extracts Allergy Mild Sneezing Verified 03/09/25 12:01 isosorbide [From Imdur] Allergy Unknown Verified 03/09/25 12:01 Home Medications Medication Instructions Recorded Confirmed Type fluticasone 250 mcg-salmeterol 50 1 inh inhalation BID 04/07/19 02/15/25 History mcg/dose blistr powdr for inhalation (Advair Diskus) montelukast 10 mg tablet 10 mg PO QAM 05/10/20 02/15/25 History vit C 250 mg-vit E 90 mg-zinc 40 2 tab PO QDD 04/05/23 02/15/25 History mg-copper 1 [id number] capsule (PreserVision AREDS-2) Oxygen Home #1 ea 04/14/23 02/15/25 Rx albuterol sulfate 90 mcg/actuation 2 puff inhalation Q6H PRN 10/29/23 02/15/25 History aerosol inhaler sob/wheezing dapagliflozin propanediol 10 mg 10 mg PO QAM 10/29/23 02/15/25 History tablet (Farxiga) metformin 500 mg tablet 500 mg PO BID 10/29/23 02/15/25 History spironolactone 25 mg tablet 12.5 mg PO QAM 10/29/23 02/15/25 History tamsulosin 0.4 mg capsule 0.4 mg PO QAM 12/17/23 02/15/25 History doxepin 10 mg capsule 10 mg PO HS 02/15/25 02/15/25 History furosemide 40 mg tablet 40 mg PO QAM 02/15/25 02/15/25 History ipratropium 0.5 mg-albuterol 3 mg 3 ml inhalation BID 02/15/25 02/15/25 History (2.5 mg base)/3 mL nebulization soln magnesium glycinate 200 mg PO HS 02/15/25 02/15/25 History warfarin 5 mg tablet 5 mg PO HS 02/15/25 02/15/25 History digoxin 125 mcg (0.125 mg) tablet 0.125 mg PO DAILY@1600 #20 tabs 02/21/25 Rx (Digitek) diltiazem HCl 180 mg 180 mg PO QAM #20 caps 02/21/25 Rx capsule,extended release 24 hr prednisone 10 mg tablet See Rx Instructions .Route 02/21/25 Rx .COMPLEX #12 tabs Patient History Medical History Elevated serum creatinine Hyperkalemia Acute diastolic CHF (congestive heart failure) DVT prophylaxis Lower extremity edema Family History Other Family history non-contributory Social History Smoking Status: Former smoker Tobacco Type: Cigarettes and Smokeless Tobacco (Dip or Chew) Second Hand Exposure: No; Do You Dip or Chew Tobacco: Yes; Hx Alcohol Use: No Hx Substance Use: No Preferred Language: Japanese Communication Ability: Effective Screen Stretcher Required: No Beliefs That Will Affect Care: None marital status: Current Living Situation: Spouse Current Living Situation Comment: lives at home with , son checks in regularly current occupational status: retired Feels Safe at Home: Yes Assistive Devices: Oxygen - Continuous and Walker Review of Systems 2 Review of Systems: All systems reviewed & are unremarkable except as noted in HPI & below Physical Exam 2 Physical Exam: Constitutional: No acute distress HEENT: EOMI, PERRLA, hard to hear Respiratory system: Decreased air entry bilaterally, no wheeze, rhonchi, no crackles CVS: S1-S2 positive, no murmurs or gallops, distant heart sounds Abdomen: Soft, nontender, nondistended, positive bowel sounds x4 Extremities: +2 pulses bilaterally radialis/ dorsalis pedis, no cyanosis, minimal pitting edema bilateral lower extremity Neuro: Awake alert oriented x3 Psych: Normal mood and affect G/U: Positive Luke Skin: no rashes, warm and dry Lymphatic: no cervical or axillary lymphadenopathy Results & Data Results & Data Vital Signs (Past 12 Hours) Vital Signs Temp Pulse Pulse Resp BP Pulse Ox O2 Del Method 03/10/25 08:25 High Flow Nasal Cannula 03/10/25 08:02 36.4 C L 100 H 22 98/50 L 89 L High Flow Nasal Cannula 03/10/25 07:18 82 03/10/25 07:13 85 13 96 03/10/25 07:13 84 13 96 BiPAP 03/10/25 03:11 36.4 C L 83 17 99/54 L 96 CPAP 03/10/25 02:01 85 19 97 03/10/25 01:59 81 23 97 BiPAP O2 Flow Rate FiO2 03/10/25 08:25 15 03/10/25 08:02 15 03/10/25 07:18 03/10/25 07:13 40 03/10/25 07:13 40 03/10/25 03:11 03/10/25 02:01 40 03/10/25 01:59 40 Laboratory Results 03/09/25 10:08 03/09/25 10:08 PG Care Time/CCT Total # of Minutes Spent Total Time Spent with Patient: Total time spent is greater than 50% in coordination of care (as documented) at patient's floor/unit and/or counseling patient: Coding Level of Care Code 76379 INT INP/OBS CARE 3/75MIN Diagnoses Acute on chronic respiratory failure with hypoxemia J96.21 Shortness of breath R06.02 Atrial fibrillation with rapid ventricular response I48.91 COPD (chronic obstructive pulmonary disease) J44.9 COPD type: unspecified COPD Abnormal chest CT R93.89 Pulmonary hypertension I27.20 Emphysema of lung J43.9
[2025-03-10] MEDS: CEROVITE ADV FORMULA TAB PO SCH (15:00)
[2025-03-10] MEDS: POLYETHYLENE (MIRALAX) 17 GM PACK PO SCH ×2 (15:00→21:50)
[2025-03-10] MEDS: UMECLIDINIUM BROMIDE 62.5MCG/BLISTER 7 PUFFS/INHALER INH SCH (16:51)
--- NOTE | 2025-03-11 05:38 | Electrocardiogram Report ---
Test Reason : Blood Pressure : */* mmHG Vent. Rate : 104 BPM Atrial Rate : * BPM P-R Int : * ms QRS Dur : 78 ms QT Int : 324 ms P-R-T Axes : * 27 47 degrees QTcB Int : 426 ms Atrial fibrillation with rapid ventricular response with premature ventricular or aberrantly conducte d complexes Low voltage QRS Abnormal ECG When compared with ECG of 15-Feb-2025 20:26, No significant change was found Confirmed by Tyler Haro ([id number]) on 03/11/2025 5:37:57 AM Referred By: REFERRED SELF Confirmed By: Tyler Haro
[2025-03-11 07:06] LABS: INR 2.1 (0.9-1.1); Prothrombin Time 21.7 Seconds (9.0-12.0)
--- NOTE | 2025-03-11 08:12 | Pulmonology Progress Note ---
Date of Service March 11, 2025 Assessment & Plan (1) Acute on chronic respiratory failure with hypoxemia: (2) Shortness of breath: (3) Atrial fibrillation with rapid ventricular response: (4) COPD (chronic obstructive pulmonary disease): COPD type: unspecified COPD Qualified Code(s): J44.9 - Chronic obstructive pulmonary disease, unspecified (5) Abnormal chest CT: (6) Pulmonary hypertension: (7) Emphysema of lung: Plan Chest x-ray 03/09/2025 personally reviewed: Portable film, good inspiratory effort, bilateral costophrenic angles are blunted, flattened diaphragm, no clear lung inflated appreciated PFT 05/29/2020 personally reviewed: Moderate obstructive lung dysfunction, insignificant bronchodilator response FVC 3.65 L 92%, FEV1 1.96 L 66%, FEV1/FVC 54%, RV 104%, TLC 86%, RV/TLC 116%, DLCO 42% 2D echo 10/28/2022: EF 55-59%, grade 1 diastolic dysfunction, mild MR, mild TR, PASP 44 mmHg, RV mildly dilated with normal function VBG 03/09/2025: 7.36/ CT chest 04/08/2023 personally reviewed: Bilateral apical pleural scarring more on the left side Severe centrilobular and paraseptal emphysema Left upper lobe 2.4 cm opacity Small bilateral pleural effusion No significant mediastinal lymphadenopathy -- Acute on chronic hypoxic respiratory failure On 6 L oxygen at home No wheezing appreciated on physical exam Likely secondary to HFpEF Respiratory bio fire negative for COVID-19, influenza A/B as well as RSV on 03/09/2025 BNP 321 -- COPD with emphysema Gold E On Advair 250 at home along with montelukast Following up with Dr. 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 Plan: Continue with diuretics to keep the patient negative balance Recommend strict ins and outs Continue with Incruse and Breo On discharge recommend Spiriva/Incruse to be added to his regimen of Advair and montelukast The patient spirometry does show severe obstructive lung dysfunction but he is usually not able to tolerate BiPAP I do think that he would benefit from AVAPS, unless he is willing to use BiPAP in the hospital I would not pursue AVAPS at home. Case discussed with RN Please note the above document was generated using voice recognition software. It may contain grammatical, syntax or spelling errors.Any formal questions or concerns about the content, text or information contained within the body of this dictation should be directly addressed to the provider for clarification. Admission and Anticipated Discharge Date Admission Date: March 09, 2025 Subjective Patient seen and examined at bedside. No acute distress, no adverse events overnight He was saturating 98% on 7 L oxygen, I went down to 5 L He said he is feeling better Has been diuresing well Denies any cough Shortness of breath is back to his baseline Fair appetite No nausea or vomiting Review of Systems 2 Review of Systems: All systems reviewed & are unremarkable except as noted in Subjective Physical Exam 2 Physical Exam: Constitutional: No acute distress HEENT: EOMI, PERRLA, hard to hear Respiratory system: Decreased air entry bilaterally, no wheeze, rhonchi, no crackles CVS: S1-S2 positive, no murmurs or gallops, distant heart sounds Abdomen: Soft, nontender, nondistended, positive bowel sounds x4 Extremities: +2 pulses bilaterally radialis/ dorsalis pedis, no cyanosis, minimal pitting edema bilateral lower extremity Neuro: Awake alert oriented x3 Psych: Normal mood and affect G/U: Positive Luke Skin: no rashes, warm and dry Lymphatic: no cervical or axillary lymphadenopathy Results & Data Results & Data Vital Signs (Past 12 Hours) Vital Signs Temp Pulse Pulse Resp BP Pulse Ox O2 Del Method 03/11/25 07:18 79 18 92 Nasal Cannula 03/11/25 03:47 36.4 C L 84 19 99/54 L 94 Nasal Cannula 03/11/25 00:19 85 22 96 High Flow Nasal Cannula 03/10/25 23:43 36.4 C L 83 22 109/54 L 98 Nasal Cannula 03/10/25 21:54 BiPAP, High Flow Nasal Cannula 03/10/25 21:50 89 03/10/25 20:29 97 H 28 H 98 High Flow Nasal Cannula O2 Flow Rate 03/11/25 07:18 7 03/11/25 03:47 7 03/11/25 00:19 10 03/10/25 23:43 10 03/10/25 21:54 15 03/10/25 21:50 03/10/25 20:29 15 Laboratory Results 03/09/25 10:08 07/24/25 10:08 PG Care Time/CCT Total # of Minutes Spent Total Time Spent with Patient: Total time spent is greater than 50% in coordination of care (as documented) at patient's floor/unit and/or counseling patient: Coding Level of Care Code 28898 SUB INP/OBS CARE 2/35MIN Diagnoses Acute on chronic respiratory failure with hypoxemia J96.21 Shortness of breath R06.02 Atrial fibrillation with rapid ventricular response I48.91 COPD (chronic obstructive pulmonary disease) J44.9 COPD type: unspecified COPD Abnormal chest CT R93.89 Pulmonary hypertension I27.20 Emphysema of lung J43.9
--- NOTE | 2025-03-11 10:37 | Hospitalist Progress Note ---
Date of Service March 11, 2025 Assessment & Plan (1) Acute and chronic respiratory failure with hypoxia: Plan: Patient was brought to the hospital by EMS after he was found with a saturation of 70% on his baseline 6L of oxygen Chest x ray showed evidence of chronic hyperinflation of lungs Continue high flow oxygen wean as tolerated appreciate pulm (2) COPD (chronic obstructive pulmonary disease): Plan: I did not appreciate any wheeze on exam and patient said he was not wheezing at home Will resume his home meds Added Incruse Duonebs, Advair Add spiriva upon discharge per Pulm (3) HTN (hypertension): Plan: soft BP Hold anti hypertensives (4) Atrial fibrillation with RVR: Plan: Resume his home meds of Diltiazem and Digoxin and Warfarin Plan Admit to telemetry DNr/DNI Admission and Anticipated Discharge Date Admission Date: March 09, 2025 Subjective Patient seen and examined, still short of breath, but feels better than on admission Review of Systems Review of Systems: All systems reviewed are negative, apart from the ones contained in the history. Physical Exam Physical Exam: The patient is awake, alert and oriented 3, well developed and well nourished, normocephalic and atraumatic, lying in bed and in no acute distress. HEENT--PERRL, EOMI, mucous membranes and oropharynx mildly dry Neck--supple. No JVD. No bruits. Thyroid normal, trachea midline, no adenopathy. Heart--normal S1 and S2. No murmurs, rubs or gallops. Lungs--reduced air entry on auscultation Abdomen--normal bowel sounds and soft. Extremities--no cyanosis or clubbing. No edema. Dermatologic--normal skin turgor, normal color, no abnormal lymph nodes, no rash. Neurologic--cranial nerves II through XII grossly intact. Rheumatologic--normal range of motion. Psychiatric--normal affect. Results & Data Results & Data Vital Signs (Past 12 Hours) Vital Signs Temp Pulse Resp BP Pulse Ox O2 Del Method O2 Flow Rate 03/11/25 09:22 High Flow Nasal Cannula 03/11/25 08:43 97.7 F 03/11/25 08:38 96.6 F L 75 22 95/51 L 89 L Nasal Cannula 03/11/25 07:18 79 18 92 Nasal Cannula 7 03/11/25 03:47 97.5 F L 84 19 99/54 L 94 Nasal Cannula 7 03/11/25 00:19 85 22 96 High Flow Nasal Cannula 10 03/10/25 23:43 97.5 F L 83 22 109/54 L 98 Nasal Cannula 10 PG Care Time/CCT Total # of Minutes Spent Total Time Spent with Patient: Total time spent is greater than 50% in coordination of care (as documented) at patient's floor/unit and/or counseling patient: Coding Level of Care Code 14035 SUB INP/OBS CARE 2/35MIN Diagnoses Acute and chronic respiratory failure with hypoxia J96.21 COPD (chronic obstructive pulmonary disease) J44.9 HTN (hypertension) I10 Atrial fibrillation with RVR I48.91 Time Spent (min) 35
[2025-03-12 07:52] LABS: INR 1.9 (0.9-1.1); Prothrombin Time 19.7 Seconds (9.0-12.0)
--- NOTE | 2025-03-12 09:14 | Pulmonology Progress Note ---
Date of Service March 12, 2025 Assessment & Plan (1) Acute on chronic respiratory failure with hypoxemia: (2) Shortness of breath: (3) Atrial fibrillation with rapid ventricular response: (4) COPD (chronic obstructive pulmonary disease): COPD type: unspecified COPD Qualified Code(s): J44.9 - Chronic obstructive pulmonary disease, unspecified (5) Abnormal chest CT: (6) Pulmonary hypertension: (7) Emphysema of lung: Plan Chest x-ray 03/09/2025 personally reviewed: Portable film, good inspiratory effort, bilateral costophrenic angles are blunted, flattened diaphragm, no clear lung inflated appreciated PFT 05/29/2020 personally reviewed: Moderate obstructive lung dysfunction, insignificant bronchodilator response FVC 3.65 L 92%, FEV1 1.96 L 66%, FEV1/FVC 54%, RV 104%, TLC 86%, RV/TLC 116%, DLCO 42% 2D echo 10/28/2022: EF 55-59%, grade 1 diastolic dysfunction, mild MR, mild TR, PASP 44 mmHg, RV mildly dilated with normal function VBG 03/09/2025: 7.36/ CT chest 04/08/2023 personally reviewed: Bilateral apical pleural scarring more on the left side Severe centrilobular and paraseptal emphysema Left upper lobe 2.4 cm opacity Small bilateral pleural effusion No significant mediastinal lymphadenopathy -- Acute on chronic hypoxic respiratory failure On 6 L oxygen at home No wheezing appreciated on physical exam Likely secondary to HFpEF Respiratory bio fire negative for COVID-19, influenza A/B as well as RSV on 03/09/2025 BNP 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 Plan: Continue with diuretics to keep the patient negative balance Recommend strict ins and outs Continue with Incruse and Breo On discharge recommend Spiriva/Incruse to be added to his regimen of Advair and montelukast The patient spirometry does show severe obstructive lung dysfunction but he is usually not able to tolerate BiPAP I do think that he would benefit from AVAPS, unless he is willing to use BiPAP in the hospital I would not pursue AVAPS at home. Case discussed with RN Please note the above document was generated using voice recognition software. It may contain grammatical, syntax or spelling errors.Any formal questions or concerns about the content, text or information contained within the body of this dictation should be directly addressed to the provider for clarification. Admission and Anticipated Discharge Date Admission Date: March 09, 2025 Subjective Patient seen and examined at bedside. No acute distress, no adverse events overnight He had just returned from commode, he was saturating 92% on 10 L nasal cannula. Overall he stated he is feeling better Shortness of breath is almost back to his baseline He does complain of shortness of breath on minimal exertion Denies any chest pain Has been diuresing well No nausea or vomiting Review of Systems 2 Review of Systems: All systems reviewed & are unremarkable except as noted in Subjective Physical Exam 2 Physical Exam: Constitutional: No acute distress HEENT: EOMI, PERRLA, hard to hear Respiratory system: Decreased air entry bilaterally, no wheeze, rhonchi, no crackles CVS: S1-S2 positive, no murmurs or gallops, distant heart sounds Abdomen: Soft, nontender, nondistended, positive bowel sounds x4 Extremities: +2 pulses bilaterally radialis/ dorsalis pedis, no cyanosis, minimal pitting edema bilateral lower extremity Neuro: Awake alert oriented x3 Psych: Normal mood and affect G/U: Positive Luke Skin: no rashes, warm and dry Lymphatic: no cervical or axillary lymphadenopathy Results & Data Results & Data Vital Signs (Past 12 Hours) Vital Signs Temp Pulse Pulse Resp BP Pulse Ox O2 Del Method 03/12/25 08:30 97 H 112/63 94 Nasal Cannula 03/12/25 07:48 36.7 C 111 H 24 111/59 L 91 Nasal Cannula 03/12/25 07:20 88 16 96 Nasal Cannula 03/12/25 02:37 36.4 C L 100 H 18 120/76 96 Nasal Cannula 03/12/25 01:57 100 H 18 96 High Flow Nasal Cannula 03/11/25 22:36 36.4 C L 98 H 23 126/74 95 Nasal Cannula 03/11/25 21:46 85 03/11/25 21:35 High Flow Nasal Cannula O2 Flow Rate 03/12/25 08:30 12 03/12/25 07:48 12.0 03/12/25 07:20 6 03/12/25 02:37 6 03/12/25 01:57 6 03/11/25 22:36 10 03/11/25 21:46 03/11/25 21:35 10 Laboratory Results 03/09/25 10:08 03/09/25 10:08 PG Care Time/CCT Total # of Minutes Spent Total Time Spent with Patient: Total time spent is greater than 50% in coordination of care (as documented) at patient's floor/unit and/or counseling patient: Coding Level of Care Code 28119 SUB INP/OBS CARE 2/35MIN Diagnoses Acute on chronic respiratory failure with hypoxemia J96.21 Shortness of breath R06.02 Atrial fibrillation with rapid ventricular response I48.91 COPD (chronic obstructive pulmonary disease) J44.9 COPD type: unspecified COPD Abnormal chest CT R93.89 Pulmonary hypertension I27.20 Emphysema of lung J43.9
--- NOTE | 2025-03-12 10:19 | Hospitalist Progress Note ---
Date of Service March 12, 2025 Assessment & Plan (1) Acute and chronic respiratory failure with hypoxia: Plan: Patient was brought to the hospital by EMS after he was found with a saturation of 70% on his baseline 6L of oxygen Chest x ray showed evidence of chronic hyperinflation of lungs Continue high flow oxygen Overnight, his requirement increased to 12L wean as tolerated appreciate pulm (2) COPD (chronic obstructive pulmonary disease): Plan: I did not appreciate any wheeze on exam and patient said he was not wheezing at home Will resume his home meds Added Incruse here in the hospital Santana, Patience Per Pulm, On discharge recommend Spiriva/Incruse to be added to his regimen of Advair and montelukast (3) HTN (hypertension): Plan: soft BP Hold anti hypertensives (4) Atrial fibrillation with RVR: Plan: Resume his home meds of Diltiazem and Digoxin and Warfarin Plan Admit to telemetry DNr/DNI Admission and Anticipated Discharge Date Admission Date: March 09, 2025 Subjective patient seen and examined, overnight, oxygen turned down to 5L, but his saturation dropped and is now on 10L Review of Systems Review of Systems: All systems reviewed are negative, apart from the ones contained in the history. Physical Exam Physical Exam: The patient is awake, alert and oriented 3,thin, in mild resp distress HEENT--PERRL, EOMI, mucous membranes and oropharynx mildly dry Neck--supple. No JVD. No bruits. Thyroid normal, trachea midline, no adenopathy. Heart--normal S1 and S2. No murmurs, rubs or gallops. Lungs--reduced air entry on auscultation Abdomen--normal bowel sounds and soft. Extremities--no cyanosis or clubbing. No edema. Dermatologic--normal skin turgor, normal color, no abnormal lymph nodes, no rash. Neurologic--cranial nerves II through XII grossly intact. Rheumatologic--normal range of motion. Psychiatric--normal affect. Results & Data Results & Data Vital Signs (Past 12 Hours) Vital Signs Temp Pulse Resp BP Pulse Ox O2 Del Method O2 Flow Rate 03/12/25 09:49 Nasal Cannula 03/12/25 09:47 81 15 95 Nasal Cannula 03/12/25 08:30 97 H 112/63 94 Nasal Cannula 03/12/25 07:48 98.1 F 111 H 24 111/59 L 91 Nasal Cannula 12.0 03/12/25 07:20 88 16 96 Nasal Cannula 6 03/12/25 02:37 97.5 F L 100 H 18 120/76 96 Nasal Cannula 6 03/12/25 01:57 100 H 18 96 High Flow Nasal Cannula 6 03/11/25 22:36 97.5 F L 98 H 23 126/74 95 Nasal Cannula 10 PG Care Time/CCT Total # of Minutes Spent Total Time Spent with Patient: Total time spent is greater than 50% in coordination of care (as documented) at patient's floor/unit and/or counseling patient: Coding Level of Care Code 64986 SUB INP/OBS CARE 2/35MIN Diagnoses Acute and chronic respiratory failure with hypoxia J96.21 COPD (chronic obstructive pulmonary disease) J44.9 HTN (hypertension) I10 Atrial fibrillation with RVR I48.91 Time Spent (min) 35
[2025-03-13 08:10] LABS: INR 1.9 (0.9-1.1); Prothrombin Time 19.4 Seconds (9.0-12.0)
--- NOTE | 2025-03-13 11:49 | Hospitalist Progress Note ---
Date of Service March 13, 2025 Assessment & Plan (1) Acute and chronic respiratory failure with hypoxia: Plan: Patient was brought to the hospital by EMS after he was found with a saturation of 70% on his baseline 6L of oxygen Chest x ray showed evidence of chronic hyperinflation of lungs Now on 5 L of oxygen through oxy mask wean as tolerated appreciate pulm (2) COPD (chronic obstructive pulmonary disease): Plan: I did not appreciate any wheeze on exam and patient said he was not wheezing at home Will resume his home meds Added Incruse here in the hospital Patience Dillon Per Pulm, On discharge recommend Spiriva/Incruse to be added to his regimen of Advair and montelukast (3) HTN (hypertension): Plan: soft BP Hold anti hypertensives (4) Atrial fibrillation with RVR: Plan: Resume his home meds of Diltiazem and Digoxin and Warfarin Plan Disposition: Hopefully discharge in the next 24 hours DNr/DNI Admission and Anticipated Discharge Date Admission Date: March 09, 2025 Subjective Patient seen and examined this morning, in mild respiratory distress, oxygen mask Review of Systems Review of Systems: All systems reviewed are negative, apart from the ones contained in the history. Physical Exam Physical Exam: The patient is awake, alert and oriented 3,thin, in mild resp distress HEENT--PERRL, EOMI, mucous membranes and oropharynx mildly dry Neck--supple. No JVD. No bruits. Thyroid normal, trachea midline, no adenopathy. Heart--normal S1 and S2. No murmurs, rubs or gallops. Lungs--reduced air entry on auscultation Abdomen--normal bowel sounds and soft. Extremities--no cyanosis or clubbing. No edema. Dermatologic--normal skin turgor, normal color, no abnormal lymph nodes, no rash. Neurologic--cranial nerves II through XII grossly intact. Rheumatologic--normal range of motion. Psychiatric--normal affect. Results & Data Results & Data Vital Signs (Past 12 Hours) Vital Signs Temp Pulse Resp BP Pulse Ox O2 Del Method O2 Flow Rate 03/13/25 10:44 Oxymask 5 03/13/25 07:39 97.5 F L 104 H 28 H 120/63 89 L High Flow Nasal Cannula 9 03/13/25 07:15 84 24 93 Oxymask 4 03/13/25 03:33 97.5 F L 85 23 123/65 97 Oxymask 8 03/13/25 02:14 91 H 22 94 BiPAP 03/12/25 23:57 97.5 F L 86 27 H 114/68 93 Oxymask 10 FiO2 03/13/25 10:44 03/13/25 07:39 03/13/25 07:15 03/13/25 03:33 03/13/25 02:14 35 03/12/25 23:57 PG Care Time/CCT Total # of Minutes Spent Total Time Spent with Patient: Total time spent is greater than 50% in coordination of care (as documented) at patient's floor/unit and/or counseling patient: Coding Level of Care Code 69553 SUB INP/OBS CARE 2/35MIN Diagnoses Acute and chronic respiratory failure with hypoxia J96.21 COPD (chronic obstructive pulmonary disease) J44.9 HTN (hypertension) I10 Atrial fibrillation with RVR I48.91 Time Spent (min) 35
[2025-03-14 06:57] LABS: INR 1.9 (0.9-1.1); Prothrombin Time 19.5 Seconds (9.0-12.0)
[2025-03-14] MEDS: MoRPHine SULFATE 2 MG/ML CARP IV STA ×2 (09:29→13:22)
--- NOTE | 2025-03-14 12:53 | Hospitalist Progress Note ---
Date of Service March 14, 2025 Assessment & Plan (1) Acute and chronic respiratory failure with hypoxia: Plan: Patient was brought to the hospital by EMS after he was found with a saturation of 70% on his baseline 6L of oxygen Chest x ray showed evidence of chronic hyperinflation of lungs Now on 10 L of oxygen through oxy mask wean as tolerated Patient still with rsepiratory distress Gave 2mg Morphine for air hunger (2) COPD (chronic obstructive pulmonary disease): Plan: I did not appreciate any wheeze on exam and patient said he was not wheezing at home Will resume his home meds Added Incruse here in the hospital Santana, Adv Per Pulm, On discharge recommend Spiriva/Incruse to be added to his regimen of Advair and montelukast (3) HTN (hypertension): Plan: soft BP Hold anti hypertensives (4) Atrial fibrillation with RVR: Plan: Resume his home meds of Diltiazem and Digoxin and Warfarin Plan Disposition: Hopefully discharge in the next 24 hours DNr/DNI Admission and Anticipated Discharge Date Admission Date: March 09, 2025 Subjective Patient seen and examined this morning, in mild respiratory distress, oxygen mask Review of Systems Review of Systems: All systems reviewed are negative, apart from the ones contained in the history. Physical Exam Physical Exam: The patient is awake, alert and oriented 3,thin, in mild resp distress HEENT--PERRL, EOMI, mucous membranes and oropharynx mildly dry Neck--supple. No JVD. No bruits. Thyroid normal, trachea midline, no adenopathy. Heart--normal S1 and S2. No murmurs, rubs or gallops. Lungs--reduced air entry on auscultation Abdomen--normal bowel sounds and soft. Extremities--no cyanosis or clubbing. No edema. Dermatologic--normal skin turgor, normal color, no abnormal lymph nodes, no rash. Neurologic--cranial nerves II through XII grossly intact. Rheumatologic--normal range of motion. Psychiatric--normal affect. Results & Data Results & Data Vital Signs (Past 12 Hours) Vital Signs Temp Pulse Pulse Resp BP Pulse Ox O2 Del Method 03/14/25 12:49 97.5 F L 85 25 H 106/55 L 92 Oxymask, High Flow Nasal Cannula 03/14/25 10:19 Oxymask, High Flow Nasal Cannula 03/14/25 09:01 97.5 F L 92 H 20 143/85 H 90 High Flow Nasal Cannula 03/14/25 07:26 68 03/14/25 07:12 68 22 97 Oxymask 03/14/25 02:49 97.5 F L 76 20 122/64 97 Oxymask O2 Flow Rate 03/14/25 12:49 10 03/14/25 10:19 8 03/14/25 09:01 10 03/14/25 07:26 03/14/25 07:12 5.5 03/14/25 02:49 9.0 PG Care Time/CCT Total # of Minutes Spent Total Time Spent with Patient: Total time spent is greater than 50% in coordination of care (as documented) at patient's floor/unit and/or counseling patient: Coding Level of Care Code 38938 SUB INP/OBS CARE 2/35MIN Diagnoses Acute and chronic respiratory failure with hypoxia J96.21 COPD (chronic obstructive pulmonary disease) J44.9 HTN (hypertension) I10 Atrial fibrillation with RVR I48.91 Time Spent (min) 35
[2025-03-15] MEDS: MoRPHine SULFATE 4 MG/ML 1 ML CARP\\VIAL IV STA (09:19)
--- NOTE | 2025-03-15 09:21 | Palliative Care Consultation ---
Date of Consultation March 15, 2025 History of Present Illness Reason for Consultation: goals of care Requesting Physician: Nadya Gardner MD Attending Physician: Nadya Gardner MD History of Present Illness Mr. Galvan is a 84-year-old male who presents ER for shortness of breath with a past medical history of COPD, CHF chronically on 6 L nasal cannula. Brought to eD by EMS after 24h of progressive SOB with cough. On EMS arrival he was in the 60s and placed on 10 L. In ED he was given 40 mg of steroids and 2 DuoNebs with subjective improvement in symptoms. Admitted for medical mgmt of acute COPD exacerbation. Allergies Allergy/AdvReac Type Severity Reaction Status Date / Time pollen extracts Allergy Mild Sneezing Verified 03/09/25 12:01 isosorbide [From Imdur] Allergy Unknown Verified 03/09/25 12:01 Home Medications Medication Instructions Recorded Confirmed Type fluticasone 250 mcg-salmeterol 50 1 inh inhalation BID 04/07/19 02/15/25 History mcg/dose blistr powdr for inhalation (Advair Diskus) montelukast 10 mg tablet 10 mg PO QAM 05/10/20 02/15/25 History vit C 250 mg-vit E 90 mg-zinc 40 2 tab PO QDD 04/05/23 02/15/25 History mg-copper 1 [id number] capsule (PreserVision AREDS-2) Oxygen Home #1 ea 04/14/23 02/15/25 Rx albuterol sulfate 90 mcg/actuation 2 puff inhalation Q6H PRN 10/29/23 02/15/25 History aerosol inhaler sob/wheezing dapagliflozin propanediol 10 mg 10 mg PO QAM 10/29/23 02/15/25 History tablet (Farxiga) metformin 500 mg tablet 500 mg PO BID 10/29/23 02/15/25 History spironolactone 25 mg tablet 12.5 mg PO QAM 10/29/23 02/15/25 History tamsulosin 0.4 mg capsule 0.4 mg PO QAM 12/17/23 02/15/25 History doxepin 10 mg capsule 10 mg PO HS 02/15/25 02/15/25 History furosemide 40 mg tablet 40 mg PO QAM 02/15/25 02/15/25 History ipratropium 0.5 mg-albuterol 3 mg 3 ml inhalation BID 02/15/25 02/15/25 History (2.5 mg base)/3 mL nebulization soln magnesium glycinate 200 mg PO HS 02/15/25 02/15/25 History warfarin 5 mg tablet 5 mg PO HS 02/15/25 02/15/25 History digoxin 125 mcg (0.125 mg) tablet 0.125 mg PO DAILY@1600 #20 tabs 02/21/25 Rx (Digitek) diltiazem HCl 180 mg 180 mg PO QAM #20 caps 02/21/25 Rx capsule,extended release 24 hr prednisone 10 mg tablet See Rx Instructions .Route 02/21/25 Rx .COMPLEX #12 tabs Patient History Medical History Elevated serum creatinine Hyperkalemia Acute diastolic CHF (congestive heart failure) DVT prophylaxis Lower extremity edema Family History Other Family history non-contributory Social History Smoking Status: Former smoker Tobacco Type: Cigarettes and Smokeless Tobacco (Dip or Chew) Second Hand Exposure: No; Do You Dip or Chew Tobacco: Yes; Hx Alcohol Use: No Hx Substance Use: No Preferred Language: Citizen Of [place] Communication Ability: Effective 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 Beliefs That Will Affect Care: None marital status: Current Living Situation: Spouse Current Living Situation Comment: lives at home with , son checks in regularly current occupational status: retired Feels Safe at Home: Yes Assistive Devices: Oxygen - Continuous and Walker Results & Data Vital Signs (Past 12 Hours) Vital Signs Temp Pulse Pulse Resp BP Pulse Ox O2 Del Method 03/15/25 07:41 36.7 C 93 H 34 H 109/52 L 89 L Nasal Cannula, High Flow Nasal Cannula 03/15/25 07:18 76 22 99 Oxymask 03/15/25 03:51 36.4 C L 76 22 106/58 L 97 Oxymask 03/15/25 03:26 70 35 H 98 03/15/25 00:31 24 L 76 H 93 BiPAP 03/14/25 23:22 90 28 H 91 03/14/25 22:28 36.4 C L 83 22 109/62 98 Oxymask 03/14/25 21:42 83 03/14/25 21:19 CPAP O2 Flow Rate FiO2 03/15/25 07:41 15 03/15/25 07:18 8 03/15/25 03:51 9.0 03/15/25 03:26 35 03/15/25 00:31 35 03/14/25 23:22 35 03/14/25 22:28 9.0 03/14/25 21:42 03/14/25 21:19 7 PG Care Time/CCT Total # of Minutes Spent Total Time Spent with Patient: Total time spent is greater than 50% in coordination of care (as documented) at patient's floor/unit and/or counseling patient: Coding
--- NOTE | 2025-03-15 10:36 | Hospitalist Progress Note ---
Date of Service March 15, 2025 Assessment & Plan (1) Acute and chronic respiratory failure with hypoxia: Plan: Patient was brought to the hospital by EMS after he was found with a saturation of 70% on his baseline 6L of oxygen Chest x ray showed evidence of chronic hyperinflation of lungs Now on 15 L of oxygen through oxy mask Patient still with respiratory distress Gave 2mg Morphine for air hunger Will consult palliative for goals of care (2) COPD (chronic obstructive pulmonary disease): Plan: I did not appreciate any wheeze on exam and patient said he was not wheezing at home Will resume his home meds Added Incruse here in the hospital Patience Dillon Per Pulm, On discharge recommend Spiriva/Incruse to be added to his regimen of Advair and montelukast (3) HTN (hypertension): Plan: soft BP Hold anti hypertensives (4) Atrial fibrillation with RVR: Plan: Resume his home meds of Diltiazem and Digoxin and Warfarin Plan Disposition: continue to monitor in the hospital, patient having worsening respiratory distress and increasing oxygen requirements DNr/DNI Admission and Anticipated Discharge Date Admission Date: March 09, 2025 Subjective Patient seen and examined this morning, in mild respiratory distress, oxygen mask Review of Systems Review of Systems: All systems reviewed are negative, apart from the ones contained in the history. Physical Exam Physical Exam: The patient is awake, alert and oriented 3,thin, in mild resp distress HEENT--PERRL, EOMI, mucous membranes and oropharynx mildly dry Neck--supple. No JVD. No bruits. Thyroid normal, trachea midline, no adenopathy. Heart--normal S1 and S2. No murmurs, rubs or gallops. Lungs--reduced air entry on auscultation Abdomen--normal bowel sounds and soft. Extremities--no cyanosis or clubbing. No edema. Dermatologic--normal skin turgor, normal color, no abnormal lymph nodes, no rash. Neurologic--cranial nerves II through XII grossly intact. Rheumatologic--normal range of motion. Psychiatric--normal affect. Results & Data Results & Data Vital Signs (Past 12 Hours) Vital Signs Temp Pulse Pulse Resp BP Pulse Ox O2 Del Method 03/15/25 07:41 98.1 F 93 H 34 H 109/52 L 89 L Nasal Cannula, High Flow Nasal Cannula 03/15/25 07:18 76 22 99 Oxymask 03/15/25 03:51 97.5 F L 76 22 106/58 L 97 Oxymask 03/15/25 03:26 70 35 H 98 03/15/25 00:31 24 L 76 H 93 BiPAP 03/14/25 23:22 90 28 H 91 O2 Flow Rate FiO2 03/15/25 07:41 15 03/15/25 07:18 8 03/15/25 03:51 9.0 03/15/25 03:26 35 03/15/25 00:31 35 03/14/25 23:22 35 PG Care Time/CCT Total # of Minutes Spent Total Time Spent with Patient: Total time spent is greater than 50% in coordination of care (as documented) at patient's floor/unit and/or counseling patient: Coding Level of Care Code 74583 SUB INP/OBS CARE 2/35MIN Diagnoses Acute and chronic respiratory failure with hypoxia J96.21 COPD (chronic obstructive pulmonary disease) J44.9 HTN (hypertension) I10 Atrial fibrillation with RVR I48.91 Time Spent (min) 35
--- NOTE | 2025-03-15 11:50 | Palliative Care Consultation ---
Date of Consultation March 15, 2025 Assessment & Plan (1) Dyspnea and respiratory abnormalities: (2) Weakness generalized: (3) Advanced care planning/counseling discussion: A 40min face to face visit was held at bedside with pt, no family present He states he has been declining for several years and oxygen needs rising He is needing more oxygen but his resp effort does not ease with more O2, it is harder to use his inhalers bc he cannot coordinate a deep inhale. We discussed COPD and his understanding of this illness. He is able to tell me he knows it is getting worse "sometimes" but did not understand it was not curable. We discussed the nature of COPD as a disease state characterized by airflow limi tation that is not fully reversible. The airflow limitation is progressive and associated with a chronic inflammatory response of the lungs to noxious particles or gases. COPD is incurable and will worsen over time. Sometimes when patients stop smoking, the progression will slow down, but all COPD over time will get worse. Medications become less effective and do not work as well; in general these patients experience a significant decline in QOL. Patients with COPD constitute a large group of symptomatic patients with a common, chronic, and generally progressive respiratory disorder. We spoke about and stages of COPD being turning points for moving to a more comfort focused. He reiterates goals of being home/with family - this is an important priority. I suggested adding hospice to his care at home to allow the comfort focus to begin with ongoing nursing support and medication mgt. I provided education about the hospice benefit: an interdisciplinary program offered by nurses, ezio ses aides, social workers, chaplains and a medical center director for patients with a terminal condition and a life expectancy of less than 6 months. This is covered by Medicare at 100%/no out of pocket expense to patient and all meds/supplies needed by patient for the reason they are on hospice are paid for/covered by hospice. The goal is assure quality of life of the patient in their home setting (home, skilled nursing, inpatient hospice setting) by providing symptoms management, psychosocial and spiritual support. However, they cannot offer 24 hours care and if the family is unable to provide that care, they will have to consider personal care with out of pocket cost vs. skilled nursing placement. We discussed the goals of hospice as a patient service and the goals of care; we discussed EOL trajectories and transitions kim the emotional impact of realizing mortality as a concrete reality from prior abstract considerations. Pt was reassured that no matter where they are along this trajectory, they are not alone - their medical team will remain by their side through their journey. Discussed the pros/cons of accepting help when especially weakened and distressed by pain-which would also help provide relief/decrease caregiver burden/strain. Pt states he would like to think about the above and speak with his son felice when he visits after work/ETA 630pm. (4) Palliative care by specialist: Introduced Palliative Medicine and explained our role in patient's care. Patient and/or family were receptive to palliative services for goals of care discussions. Reviewed we are different from hospice, a home health nurse visiting service. Plan As above. ACP discussion as noted. Thank you for allowing us to participate in the ongoing care of this patient. Please page with any additional concerns. Alanis Hendrickson DNP Director, Palliative Medicine History of Present Illness Reason for Consultation: goals of care Attending Physician: Nadya Gardner MD History of Present Illness Dru is an 84yo with adv COPD/GOLD Stage E admitted with acute on chronic hypox resp failure Home inhaler regimen includes Incruse and breo but he notes he has a hard time using inhalers bc he cannot get in enough of a deep breath requiring 10-15lpm NC, usually on 6-7lpm NC ATC at home Dru reports an overall continued decline. Very weak and dyspneic with even minimal exertion or prolonged conversation Lives at home with who struggles with failed back syndrome. He has a son and a daughter who help them - son comes daily and prepares their dinner, daughter is a nurse who comes every few days/manages his med box etc. notes his PS has been steadily declining HIs daughter visits a few times a week and does his bath Son does the meals and can prep easy things sandwiches and snacks but cannot do more intense tasks son will also take pt out for drives/errands his appetite has been ok but declining chronic cough no n/v/d needs assist for most tasks Chest x-ray 03/09/2025: portable film, good inspiratory effort, bilateral costophrenic angles are blunted, flattened diaphragm, no clear lung inflated appreciated PFT 05/29/2020Moderate obstructive lung dysfunction, insignificant bronchodilator response FVC 3.65 L 92%, FEV1 1.96 L 66%, FEV1/FVC 54%, RV 104%, TLC 86%, RV/TLC 116%, DLCO 42% 2D echo 10/28/2022: EF 55-59%, grade 1 diastolic dysfunction, mild MR, mild TR, PASP 44 mmHg, RV mildly dilated with normal function VBG 03/09/2025: 7.36//24 CT chest 04/08/2023: Bilateral apical pleural scarring more on the left side Severe centrilobular and paraseptal emphysema Left upper lobe 2.4 cm opacity Small bilateral pleural effusion No significant mediastinal lymphadenopathy Allergies Allergy/AdvReac Type Severity Reaction Status Date / Time pollen extracts Allergy Mild Sneezing Verified 03/09/25 12:01 isosorbide [From Imdur] Allergy Unknown Verified 03/09/25 12:01 Home Medications Medication Instructions Recorded Confirmed Type fluticasone 250 mcg-salmeterol 50 1 inh inhalation BID 04/07/19 02/15/25 History mcg/dose blistr powdr for inhalation (Advair Diskus) montelukast 10 mg tablet 10 mg PO QAM 05/10/20 02/15/25 History vit C 250 mg-vit E 90 mg-zinc 40 2 tab PO QDD 04/05/23 02/15/25 History mg-copper 1 [id number] capsule (PreserVision AREDS-2) Oxygen Home #1 ea 04/14/23 02/15/25 Rx albuterol sulfate 90 mcg/actuation 2 puff inhalation Q6H PRN 10/29/23 02/15/25 History aerosol inhaler sob/wheezing dapagliflozin propanediol 10 mg 10 mg PO QAM 10/29/23 02/15/25 History tablet (Farxiga) metformin 500 mg tablet 500 mg PO BID 10/29/23 02/15/25 History spironolactone 25 mg tablet 12.5 mg PO QAM 10/29/23 02/15/25 History tamsulosin 0.4 mg capsule 0.4 mg PO QAM 12/17/23 02/15/25 History doxepin 10 mg capsule 10 mg PO HS 02/15/25 02/15/25 History furosemide 40 mg tablet 40 mg PO QAM 02/15/25 02/15/25 History ipratropium 0.5 mg-albuterol 3 mg 3 ml inhalation BID 02/15/25 02/15/25 History (2.5 mg base)/3 mL nebulization soln magnesium glycinate 200 mg PO HS 02/15/25 02/15/25 History warfarin 5 mg tablet 5 mg PO HS 02/15/25 02/15/25 History digoxin 125 mcg (0.125 mg) tablet 0.125 mg PO DAILY@1600 #20 tabs 02/21/25 Rx (Digitek) diltiazem HCl 180 mg 180 mg PO QAM #20 caps 02/21/25 Rx capsule,extended release 24 hr prednisone 10 mg tablet See Rx Instructions .Route 02/21/25 Rx .COMPLEX #12 tabs Patient History Medical History Elevated serum creatinine Hyperkalemia Acute diastolic CHF (congestive heart failure) DVT prophylaxis Lower extremity edema Family History Other Family history non-contributory Social History Smoking Status: Former smoker Tobacco Type: Cigarettes and Smokeless Tobacco (Dip or Chew) Second Hand Exposure: No; Do You Dip or Chew Tobacco: Yes; Hx Alcohol Use: No Hx Substance Use: No Preferred Language: Yoruba Communication Ability: Effective 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 Beliefs That Will Affect Care: None marital status: Current Living Situation: Spouse Current Living Situation Comment: lives at home with , son checks in regularly current occupational status: retired Feels Safe at Home: Yes Assistive Devices: Oxygen - Continuous and Walker Review of Systems Review of Systems: All systems reviewed & are unremarkable except as noted in Subjective Physical Exam Physical Exam: Resting supine in bed Frail and chronically ill appearing Bitemp wasting +LOVELOCK PERRLA, EOMIs pharynx pink, no thrush, dentition fair Neck supple, no stridor chest diminished, few rhonchi, faint exp wheeze tachy S1s2 abd softly distended, BS+, non tender Gen weakness Skin +Pallor, sactt ecchymoses, +cool, skin is friable AAOx3, rambling at times cooperative with exam Results & Data Vital Signs (Past 12 Hours) Vital Signs Temp Pulse Pulse Resp BP Pulse Ox O2 Del Method 03/15/25 07:41 36.7 C 93 H 34 H 109/52 L 89 L Nasal Cannula, High Flow Nasal Cannula 03/15/25 07:18 76 22 99 Oxymask 03/15/25 03:51 36.4 C L 76 22 106/58 L 97 Oxymask 03/15/25 03:26 70 35 H 98 03/15/25 00:31 24 L 76 H 93 BiPAP O2 Flow Rate FiO2 03/15/25 07:41 15 03/15/25 07:18 8 03/15/25 03:51 9.0 03/15/25 03:26 35 03/15/25 00:31 35 Laboratory Results 03/14/25 03/13/25 03/12/25 Range/Units 05:51 07:13 06:20 WBC (4.8-10.8) K/ul RBC (4.70-6.10) M/uL Hgb (14.0-18.0) g/dl POC Hgb (14.0-18.0) g/dl Hct (42.0-52.0) % POC Hct (42-52) % MCV (80.0-100.0) fL MCH (25.0-34.0) pg MCHC (32.0-36.0) g/dL RDW Std Deviation (36.4-46.3) fL RDW Coeff of Whitney (11.5-14.5) % Plt Count (130-400) K/uL MPV (9.4-12.4) fL Immature Gran % (Auto) % Neut % (Auto) % Lymph % (Auto) % Mcdowell % (Auto) % Eos % (Auto) % Baso % (Auto) % Neut # (Auto) (1.40-6.50) K/uL Lymph # (Auto) (1.20-3.40) K/uL Mcdowell # (Auto) (0.11-0.59) K/uL Eos # (Auto) (0.00-0.50) K/uL Baso # (Auto) (0.00-0.20) K/uL Immature Gran # (Auto) (0.01-0.20) K/uL PT 19.5 H 19.4 H 19.7 H (9.0-12.0) Seconds INR 1.9 H 1.9 H 1.9 H (0.9-1.1) VBG pH (7.36-7.41) VBG pCO2 (38-50) mmHg VBG pO2 mmHg VBG HCO3 mmol/L VBG O2 Saturation % VBG Base Excess mEq/L POC Sodium (135-144) mmol/L Sodium (136-145) mmol/L POC Potassium (3.3-5.0) mmol/L Potassium (3.5-5.1) mmol/L POC Chloride (101-112) mmol/L Chloride (98-107) mmol/L Carbon Dioxide (21-32) mmol/L POC Total CO2 (24-31) mmol/L Anion Gap (3-11) POC Anion Gap (16-25) mmol/L POC BUN (7-18) mg/dl BUN (6-23) mg/dl Creatinine (0.6-1.4) mg/dl POC Creatinine (0.6-1.3) mg/dl Est Cr Clr Drug Dosing eGFR BUN/Creatinine Ratio (10-20) Glucose (70-99(Fasting)) mg/dl POC Glucose (other) (70-99) mg/dl Calcium (8.6-10.3) mg/dl POC Ioniz Calcium Mauri (1.12-1.32) mmol/l Total Bilirubin (0.2-1.0) mg/dl AST (13-39) U/L ALT (7-52) U/L Alkaline Phosphatase (34-104) U/L Troponin I High Sens (0-20) pg/ml B-Natriuretic Peptide (0-100) pg/ml Total Protein (6.0-8.3) gm/dl Albumin (3.4-5.0) gm/dl Globulin (2.5-4.0) gm/dl Albumin/Globulin Ratio (0.9-2) Lipase (11-82) U/L SARS-CoV-2 (PCR) (Negative) Influenza Type A (PCR) (Neg) Influenza Type B (PCR) (Neg) RSV (RT-PCR) (Neg) 03/11/25 03/10/25 03/09/25 Range/Units 06:25 06:03 10:40 WBC (4.8-10.8) K/ul RBC (4.70-6.10) M/uL Hgb (14.0-18.0) g/dl POC Hgb (14.0-18.0) g/dl Hct (42.0-52.0) % POC Hct (42-52) % MCV (80.0-100.0) fL MCH (25.0-34.0) pg MCHC (32.0-36.0) g/dL RDW Std Deviation (36.4-46.3) fL RDW Coeff of Whitney (11.5-14.5) % Plt Count (130-400) K/uL MPV (9.4-12.4) fL Immature Gran % (Auto) % Neut % (Auto) % Lymph % (Auto) % Mcdowell % (Auto) % Eos % (Auto) % Baso % (Auto) % Neut # (Auto) (1.40-6.50) K/uL Lymph # (Auto) (1.20-3.40) K/uL Mcdowell # (Auto) (0.11-0.59) K/uL Eos # (Auto) (0.00-0.50) K/uL Baso # (Auto) (0.00-0.20) K/uL Immature Gran # (Auto) (0.01-0.20) K/uL PT 21.7 H 19.5 H (9.0-12.0) Seconds INR 2.1 H 1.9 H (0.9-1.1) VBG pH (7.36-7.41) VBG pCO2 (38-50) mmHg VBG pO2 mmHg VBG HCO3 mmol/L VBG O2 Saturation % VBG Base Excess mEq/L POC Sodium (135-144) mmol/L Sodium (136-145) mmol/L POC Potassium (3.3-5.0) mmol/L Potassium (3.5-5.1) mmol/L POC Chloride (101-112) mmol/L Chloride (98-107) mmol/L Carbon Dioxide (21-32) mmol/L POC Total CO2 (24-31) mmol/L Anion Gap (3-11) POC Anion Gap (16-25) mmol/L POC BUN (7-18) mg/dl BUN (6-23) mg/dl Creatinine (0.6-1.4) mg/dl POC Creatinine (0.6-1.3) mg/dl Est Cr Clr Drug Dosing eGFR BUN/Creatinine Ratio (10-20) Glucose (70-99(Fasting)) mg/dl POC Glucose (other) (70-99) mg/dl Calcium (8.6-10.3) mg/dl POC Ioniz Calcium Mauri (1.12-1.32) mmol/l Total Bilirubin (0.2-1.0) mg/dl AST (13-39) U/L ALT (7-52) U/L Alkaline Phosphatase (34-104) U/L Troponin I High Sens (0-20) pg/ml B-Natriuretic Peptide (0-100) pg/ml Total Protein (6.0-8.3) gm/dl Albumin (3.4-5.0) gm/dl Globulin (2.5-4.0) gm/dl Albumin/Globulin Ratio (0.9-2) Lipase (11-82) U/L SARS-CoV-2 (PCR) NEGATIVE (Negative) Influenza Type A (PCR) Negative (Neg) Influenza Type B (PCR) Negative (Neg) RSV (RT-PCR) Negative (Neg) 03/09/25 03/09/25 03/09/25 Range/Units 10:13 10:09 10:08 WBC 12.04 H (4.8-10.8) K/ul RBC 3.99 L (4.70-6.10) M/uL Hgb 12.6 L (14.0-18.0) g/dl POC Hgb 13.3 L (14.0-18.0) g/dl Hct 38.6 L (42.0-52.0) % POC Hct 39 L (42-52) % MCV 96.7 (80.0-100.0) fL MCH 31.6 (25.0-34.0) pg MCHC 32.6 (32.0-36.0) g/dL RDW Std Deviation 53.4 H (36.4-46.3) fL RDW Coeff of Whitney 15.2 H (11.5-14.5) % Plt Count 219 (130-400) K/uL MPV 10.9 (9.4-12.4) fL Immature Gran % (Auto) 0.5 % Neut % (Auto) 71.9 % Lymph % (Auto) 18.4 % Mcdowell % (Auto) 7.0 % Eos % (Auto) 1.9 % Baso % (Auto) 0.3 % Neut # (Auto) 8.65 H (1.40-6.50) K/uL Lymph # (Auto) 2.22 (1.20-3.40) K/uL Mcdowell # (Auto) 0.84 H (0.11-0.59) K/uL Eos # (Auto) 0.23 (0.00-0.50) K/uL Baso # (Auto) 0.04 (0.00-0.20) K/uL Immature Gran # (Auto) 0.06 (0.01-0.20) K/uL PT 21.2 H (9.0-12.0) Seconds INR 2.1 H (0.9-1.1) VBG pH 7.36 (7.36-7.41) VBG pCO2 51 H (38-50) mmHg VBG pO2 24 mmHg VBG HCO3 29 mmol/L VBG O2 Saturation < 60.0 % VBG Base Excess 2.4 mEq/L POC Sodium 137 (135-144) mmol/L Sodium 136 (136-145) mmol/L POC Potassium 4.7 (3.3-5.0) mmol/L Potassium 4.7 (3.5-5.1) mmol/L POC Chloride 103 (101-112) mmol/L Chloride 103 (98-107) mmol/L Carbon Dioxide 26 (21-32) mmol/L POC Total CO2 25 (24-31) mmol/L Anion Gap 7 (3-11) POC Anion Gap 15.0 L (16-25) mmol/L POC BUN 37 H (7-18) mg/dl BUN 38 H (6-23) mg/dl Creatinine 1.62 H (0.6-1.4) mg/dl POC Creatinine 1.7 H (0.6-1.3) mg/dl Est Cr Clr Drug Dosing Not Reportable eGFR 41.86 BUN/Creatinine Ratio 23.5 H (10-20) Glucose 131 H (70-99(Fasting)) mg/dl POC Glucose (other) 128 H (70-99) mg/dl Calcium 8.7 (8.6-10.3) mg/dl POC Ioniz Calcium Mauri 1.07 L (1.12-1.32) mmol/l Total Bilirubin 0.6 (0.2-1.0) mg/dl AST 13 (13-39) U/L ALT 17 (7-52) U/L Alkaline Phosphatase 77 (34-104) U/L Troponin I High Sens 16.3 (0-20) pg/ml B-Natriuretic Peptide 321 H (0-100) pg/ml Total Protein 6.8 (6.0-8.3) gm/dl Albumin 3.4 (3.4-5.0) gm/dl Globulin 3.4 (2.5-4.0) gm/dl Albumin/Globulin Ratio 1.0 (0.9-2) Lipase 20 (11-82) U/L SARS-CoV-2 (PCR) (Negative) Influenza Type A (PCR) (Neg) Influenza Type B (PCR) (Neg) RSV (RT-PCR) (Neg) Diagnostic Findings Chest X-Ray 03/09/25 09:48 XR chest 1V portable CLINICAL HISTORY: Chest pain, nonspecific COMPARISON STUDY: 02/20/2025 FINDINGS: Heart size and pulmonary vasculature are normal. Stable hyperexpanded lungs. There is stable mild stranding opacity at the lung bases. No other consolidation or pleural effusion. No pneumothorax. IMPRESSION: Stable exam. ACT 112: Negative or not required by law. Electronically signed by: Chandana Shay M.D. 03/09/2025 10:14 AM PG Care Time/CCT Total # of Minutes Spent Total Time Spent with Patient: Total time spent is greater than 50% in coordination of care (as documented) at patient's floor/unit and/or counseling patient: I spent 100 minutes overall addressing this case: 15 min in medical data review/discussion with referring provider(s) and/or preparation for the visit incl d/w primary team 15 min in direct interaction with the patient/exam 45 min in Advance Care Planning/Goals of Care discussions as detailed above in note (must be >16min) 10 min in subsequent review and synthesis of assessment and plan 15 min communicating with other providers regarding the patient's case: Dr Gardner, nursing, care mgt Advanced Care Planning [id number] Advanced Care Planning 30 Min [id number] Advanced Care Planning Additional 30 [place] [address] IN/OBS CONSULT LVL 4,60M (25 - SIGNIFICANT, SEPARATELY IDENTIFIABLE ) Patient Type New Medical Decision Making High Complexity Diagnoses Dyspnea and respiratory abnormalities R06.00; R06.89 Weakness generalized R53.1 Advanced care planning/counseling discussion Z71.89 Palliative care by specialist Z51.5 Additional Codes Advanced Care Planning - 05658 Advanced Care Planning Additional 30 Min: 73033 Advanced Care Planning Additional 30 Min ([id number]) Advanced Care Planning - 92151 Advanced Care Planning 30 Min: 29037 Advanced Care Planning 30 Min ([id number]) Comment [id number]
[2025-03-15] MEDS: guaiFENesin 600 MG TABCR PO SCH (21:27)
--- NOTE | 2025-03-16 12:55 | Palliative Care Progress Note ---
Date of Service March 16, 2025 Assessment & Plan (1) Palliative care by specialist: Plan: Palliative care will continue to follow for ongoing GOC discussions/navigation through progression of disease and pt/ family support. (2) Advanced care planning/counseling discussion: Plan: Met with pt at bedside from 12:00-12:32 to discuss GOC. No family present. Pt shared that he is aware that he has end stage lung disease, but that "it's not that bad" and "it's not like I am going to ". Discussed the progressively debilitating nature of COPD and helped him understand that he is in late stages of his disease. I shared with pt that he likely has days to weeks to live. He again stated that he does not agree, stating that he "feel pretty ok most of the time". We discussed prognosis based on the following prognostic scores (calculation based on pt's current condition): Palliative Prognostic Index (PPI) Score: 7 (PPI > 6 = approx survival of three weeks. Sensitivity 80% / Specificity 85%.) Jose F CY, Jadon YS, Mendoza HM, Zandra JS, Frankie TL, Valerie CY, Michel CC, Edouard YC, Garth JM, Melvina JH, Luc WC.Combination of initial palliative prognostic index and score change provides a better prognostic value for terminally ill cancer patients: a six- year observational cohort study https://www.ncbi.nlm.nih.gov/pubmed/96222837 . J Pain Symptom Manage. 2014;48(5):804-14. Palliative Prognostic Score (PaP - predicts 30 day survival probability in cancer and non cancer diagnoses): 11 = 30-day survival probability is 30-70% Kandy PClaire.Independent validation of Palliative Prognostic Score in terminally ill patients referred to a hospital-based palliative medicine consultation service https://www.ncbi.nlm.nih.gov/pubmed/87561000 . J Pain Symp Manage. 2001; 22(5):811576. Palliative Performance Scale (PPS) of 40 correlating to median survival of 8 days for hospitalized elderly patients. Te Geetha MUSA, Brian S, Munir Rosales. Palliative care and rapid emergency screening tool and the Palliative Performance Scale to predict survival of older adults admitted to the hospital from the emergency department. [place] Journal of Hospice and Palliative Mediciine 2020; 38(7):800-6. Pt shared that he wishes to go back home and believes that he is feeling better since admission and needing less oxygen. I reinforced that he remains on 15L HFNC and with minimal exertion he is feeling need to add SFM. Helped pt understand that this level of oxygen demand precludes him being discharged from hospital and shared concern that if he continues on current trajectory, he may not survive this hospitalization. Discussed that COPD is not curable and given pt's wishes for DNI we discussed benefits of hospice care. Discussed hospice benefit: an interdisciplinary program offered by nurses, nurses aides, social workers, chaplains and a medical assistant prn for patients with a terminal condition and a life expectancy of less than 6 months. This is covered by Medicare at 100%/no out of pocket expense to patient and all meds/supplies needed by patient for the reason they are on hospice are paid for/covered by hospice. The goal is assure quality of life of the patient by providing symptoms management, psychosocial and spiritual support. We discussed the goals of hospice as a patient service and the goals of care; we discussed EOL trajectories and transitions kim the emotional impact of realizing mortality as a concrete reality from prior abstract considerations. Pt was reassured that no matter where they are along this trajectory, they are not alone - their medical team will remain by their side through their journey. Discussed the pros/cons of accepting help when especially weakened and distressed by pain-which would also help provide relief/decrease caregiver bur den/strain. Given pt's persistent high oxygen demand precluding discharge from hospital, we DID NOT discuss hospice at home nor SNF. At this point pt is not medically stable to leave the hospital with hospice. Pt stated that he wants to continue to attempt to wean oxygen to level which he could go home on. Pt was thankful for information, I encouraged that he continue GO discussions with his family this evening and will revisit in morning. Plan Continue to attempt to wean supplemental oxygen. DNR/DNI, continue all other life prolonging therapies. Admission and Anticipated Discharge Date Admission Date: March 09, 2025 Subjective Assessed pt at bedside, no visitors present. Pt sitting up in bed, visibly dyspneic at rest on 15L HFNC. Pt objectively dyspneic, with marked accessory muscle use and tachypnea (25-32bpm) progressing to paradoxical abdominal muscle use and shoulder shrugging and perceived need for SFM over HFNC with even minimal exertion (speaking or eating) although pOx remained above 85% throughout my visit. Pt stated that he "does not feel too bad today" and had slept for about three hours overnight with bipap mask. VSS. Review of Systems Review of Systems: All systems reviewed & are unremarkable except as noted in Subjective Physical Exam Physical Exam: Constitutional: + ill appearing, + cachectic and + frail appearing Bitemp wasting Eyes: PERRL, conjunctivae normal, anicteric sclerae ENMT: external ear and nose normal, oropharynx normal +[place] at baseline, has hearing aide but n ot wearing it. Neck: trachea midline, no thyromegaly Respiratory: + labored breathing, + uses accessory mu scles, + cough, + tachypneic, + prolonged expiratory phase and + paradoxical thoraco-abdominal movement Auscultation: + diminished lung sounds, + rhonchi and + wheezes Cardiovascular: Rate/Rhythm: regular rhythm and + tachycardic Gastrointestinal (Abdomen): normal bowel sounds, soft, nontender, no hepatosplenomegaly Musculoskeletal: generalized weakness Skin: + turgor decreased and + pallor Neurologic: PERRL, EOMI, accommodation nl, no face palsy, no dysarthria Psychiatric: A+Ox3, euthymic affect Results & Data Vital Signs (Past 12 Hours) Vital Signs Temp Pulse Pulse Resp BP Pulse Ox O2 Del Method 03/16/25 12:43 36.8 C 90 32 H 116/63 91 Oxymask 03/16/25 08:50 Oxymask 03/16/25 08:00 36.8 C 77 40 H 105/65 91 Oxymask 03/16/25 07:23 72 23 100 Oxymask 03/16/25 03:29 36.4 C L 79 15 110/61 94 Oxymask 03/16/25 03:01 84 26 H 95 O2 Flow Rate FiO2 03/16/25 12:43 15.0 03/16/25 08:50 15 03/16/25 08:00 15.0 03/16/25 07:23 15 03/16/25 03:29 15 03/16/25 03:01 35 Diagnostic Findings Chest X-Ray 03/09/25 09:48 XR chest 1V portable CLINICAL HISTORY: Chest pain, nonspecific COMPARISON STUDY: 02/20/2025 FINDINGS: Heart size and pulmonary vasculature are normal. Stable hyperexpanded lungs. There is stable mild stranding opacity at the lung bases. No other consolidation or pleural effusion. No pneumothorax. IMPRESSION: Stable exam. ACT 112: Negative or not required by law. Electronically signed by: Chandana Shay M.D. 03/09/2025 10:14 AM Medications Administered Current Inpatient Medications Albuterol (Albut/Ipratrop 3mg/0.5mg Neb 3 Ml Vial) 3 ml NEB Q6R [facility]; Protocol Stop: 04/08/25 13:22 Last Admin: 03/16/25 13:07 Dose: 3 ml Digoxin (Digoxin 0.125 Mg Tab) 0.125 mg PO DAILY@1600 [facility] Stop: 04/08/25 15:59 Last Admin: 03/15/25 17:03 Dose: 0.125 mg Diltiazem HCl (Diltiazem Hcl 180 Mg Capcr) 180 mg PO QAM [facility] Stop: 04/09/25 08:59 Last Admin: 03/16/25 08:47 Dose: 180 mg Fluticasone/Vilanterol (Fluticasone/Vilanterol 200/25mcg 14 Puffs/Inhaler) 1 puffs INH DAILY [facility] Stop: 04/09/25 08:59 Last Admin: 03/16/25 08:47 Dose: 1 puffs Furosemide (Furosemide 40 Mg Tab) 40 mg PO QAM [facility] Stop: 04/09/25 08:59 Last Admin: 03/16/25 08:47 Dose: 40 mg Guaifenesin (Guaifenesin 600 Mg Tabcr) 600 mg PO Q12 [facility] Stop: 04/14/25 20:59 Last Admin: 03/16/25 08:47 Dose: 600 mg Miscellaneous (Order Awaiting Action--Farxiga 10mg) 1 each N/A QS [facility] Stop: 04/08/25 15:59 Last Admin: 03/16/25 08:47 Dose: Not Given Montelukast Sodium (Montelukast Sodium 10 Mg Tablet) 10 mg PO QAM [facility] Stop: 04/09/25 08:59 Last Admin: 03/16/25 08:47 Dose: 10 mg Multivitamins/Minerals (Cerovite Adv Formula Tab) 1 tab PO QAM [facility] Stop: 04/09/25 13:44 Last Admin: 03/16/25 08:47 Dose: 1 tab Polyethylene Glycol (Polyethylene (Miralax) 17 Gm Pack) 17 gm PO BID MIN Stop: 04/09/25 21:44 Last Admin: 03/16/25 08:47 Dose: Not Given Tamsulosin HCl (Tamsulosin Hcl 0.4 Mg Cap) 0.4 mg PO QAM MIN Stop: 04/09/25 08:59 Last Admin: 03/16/25 08:47 Dose: 0.4 mg Umeclidinium [place] (Umeclidinium [place] 62.5mcg/Blister 7 Puffs/Inhaler) 1 puffs INH DAILY MIN Stop: 04/09/25 16:29 Last Admin: 03/16/25 08:47 Dose: 1 puffs Warfarin Sodium (Warfarin Sod 5 Mg Tab) 5 mg PO HS MIN Stop: 04/08/25 20:59 Last Admin: 03/15/25 21:27 Dose: 5 mg PG Care Time/CCT Total # of Minutes Spent Total Time Spent with Patient: Total time spent is greater than 50% in coordination of care (as documented) at patient's floor/unit and/or counseling patient: Advanced Care Planning 35675 Advanced Care Planning 30 Min [place] [address] SUB INP/OBS CARE 2/35MIN Patient Type Established History Expanded Problem Focused Exam Expanded Problem Focused Medical Decision Making Moderate Complexity Diagnoses Palliative care by specialist Z51.5 Advanced care planning/counseling discussion Z71.89 Additional Codes Advanced Care Planning - 40793 Advanced Care Planning 30 Min: 85560 Advanced Care Planning 30 Min ([id number])
[2025-03-16] MEDS ORDERED: MoRPHine SULFATE IR 15 MG TAB (IMMEDIATE RELEASE) PO PRN (13:52)
[2025-03-16] MEDS: MoRPHine SULFATE 10 MG/0.5 ML UDP PO PRN (16:00)
[2025-03-16 17:03] LABS: INR 2.2 (0.9-1.1); Prothrombin Time 22.7 Seconds (9.0-12.0)
--- NOTE | 2025-03-16 19:25 | Hospitalist Progress Note ---
Date of Service March 16, 2025 Assessment & Plan (1) Acute and chronic respiratory failure with hypoxia: Plan: Patient was brought to the hospital by EMS after he was found with a saturation of 70% on his baseline 6L of oxygen Chest x ray showed evidence of chronic hyperinflation of lungs Now on 15 L of oxygen through oxy mask Patient still with respiratory distress Gave 2mg Morphine for air hunger Will consult palliative for goals of care PERSISTENT acute/chronic hypoxic respiratory failure starting on 15 liters/minute oxymask on 03/16/2025, 7:23am, now on 50 liters/minute high flow oxygen (03/16/2025, 1:40pom). (2) COPD (chronic obstructive pulmonary disease): Plan: NOT acute exacerbation on 03/16/2025. Added Incruse here in the hospital Patience Dillon, On discharge recommend Spiriva/Incruse to be added to his regimen of Advair and montelukast (3) HTN (hypertension): Plan: soft BP Hold anti hypertensives (4) Atrial fibrillation with RVR: Plan: Resume his home meds of Diltiazem and Digoxin and Warfarin Plan Disposition: continue to monitor in the hospital, patient having worsening respiratory distress and increasing oxygen requirements DNr/DNI Admission and Anticipated Discharge Date Admission Date: March 09, 2025 Subjective "I'm short of breath. Just taking this mask off and eating a few bites of food makes me short of breath. Putting on the nasal prongs helps me breathe better when I eat. When can I go home? I would like to have hospice and be comfortable." Review of Systems Constitutional: Positive for shortness of breath at rest. Positive for shortness of breath while eating food. Positive for shortness of breath moving in bed. Negative for antecedent/coincident fevers, chills, diaphoresis, cough, wheeze, sore throat, hemoptysis, chest pains, palpitations, pleurisy, nausea, vomiting, diarrhea, abdominal pain, pelvic pain, hematemesis, hematochezia, melena, hematuria, dysuria, frequency, urgency, headaches, dizziness, lightheadedness, visual changes, hearing changes, falls, syncope, trauma, travel history, sick contacts, or food/drug ingestions novel or new. All other review of systems are reported as negative by the patient on 03/16/2025. Physical Exam Constitutional: General appearance: Run-down, worn-out, and listless. Cachexia and sarcopenia noted with bitemporal atrophy and decreased finger paper tube cutter strength in both hands. Comfortable, coherent, cooperative. Wide awake and alert. Not confused, lethargic, or obtunded. Speaks in complete, fluent, and articulate sentences without pause, interruption, cough, or wheeze. HEENT: Normocephalic; atraumatic. EOMI. PERRL No rhinorrhea. No pharyngeal discharge. Neck: Supple, no stridor, bruit, goiter, JVD, or HJR. Lymph: No lymphadenopathy. Chest: Symmetric rise and fall with respirations. Non-tender to palpation. Lungs: Clear to auscultation and percussion. No audible wheeze, pectoriloquy, increase in tactile fremitus, or flatness/dullness to percussion at the bases. Heart: RRR, S1S2, no S3 or S4. Grade II/ early systolic murmur @ LLSB without radiation to the carotids, axilla, or back, and which remains invariant in regards to the respiratory cycle. Abd: Soft, non-tender, non-distended. No rebound, guarding, Varma's sign, or organomegaly. Bowel sounds auscultated in all 4 quadrants. Ext: No clubbing, cyanosis, or edema. 2+ pedal pulses bilaterally. Skin: No decubitus ulcer, exanthem, or enanthem. Skin dry with skin tenting, but no delay in capillary refill time > 2 seconds. Neuro: Alert and oriented in regards to person, place, time, or situation. 5/5 motor strength in all 4 extremities, both proximally and distally. Urology: No alegre catheter. No urethral discharge. Psych: No suicidal ideation. No homicidal ideation. Results & Data Results & Data Vital Signs (Past 12 Hours) Vital Signs Temp Pulse Pulse Resp BP Pulse Ox O2 Del Method 03/16/25 16:01 70 03/16/25 15:56 36.8 C 73 18 129/68 32 L High Flow Nasal Cannula 03/16/25 15:23 88 33 H 93 High Flow Nasal Cannula 03/16/25 13:40 90 27 H 92 High Flow Nasal Cannula 03/16/25 13:08 90 28 H 90 Oxymask 03/16/25 12:59 68 03/16/25 12:43 36.8 C 90 32 H 116/63 91 Oxymask 03/16/25 08:50 Oxymask 03/16/25 08:00 36.8 C 77 40 H 105/65 91 Oxymask 03/16/25 07:23 72 23 100 Oxymask O2 Flow Rate FiO2 03/16/25 16:01 03/16/25 15:56 50 50 03/16/25 15:23 50 50 03/16/25 13:40 50 50 03/16/25 13:08 11 03/16/25 12:59 03/16/25 12:43 15.0 03/16/25 08:50 15 03/16/25 08:00 15.0 03/16/25 07:23 15 Laboratory Results No labs as patient awaits anticipated D/C to hospice in the next 1-2 days. PG Care Time/CCT Total # of Minutes Spent Total Time Spent with Patient: Total time spent is greater than 50% in coordination of care (as documented) at patient's floor/unit and/or counseling patient: Coding Level of Care Code 11693 SUB INP/OBS CARE 2/35MIN Diagnoses Acute and chronic respiratory failure with hypoxia J96.21 COPD (chronic obstructive pulmonary disease) J44.9 HTN (hypertension) I10 Atrial fibrillation with RVR I48.91
[2025-03-17] MEDS: MoRPHine SULFATE 2 MG/ML CARP IV STA (10:03)
--- NOTE | 2025-03-17 10:59 | Palliative Family Discussion ---
Date of Service March 17, 2025 Patient Directed Conference Time of Meetin:00 - 11:40 Participants:Radhika Bernardo AGACNP Patient participation: yes Patient Support System: son, daughter and son in law were present Other Healthcare Provider Participation: Dr Cardoso Meeting Location: bedside room 210 Advanced Directive available: no If yes, descriptors: The patient's surrogate medical decision maker participated: Per PA [id number], in absence of written documentation of patient wishes, pt's proxy for medical decisions would be his , however, patient verbalized that he trusts his son Hitesh Galvan to serve as his primary proxy in the event he lacks decisional capacity. Hitesh is present at bedside and agreeable to serve as proxy. Pt does not currently require a proxy for medical decisions. Legally authorized health care proxy: n/a Other surrogate: n/a A family meeting was held for DESIRAE GALVAN. This meeting was necessary for determining the appropriate course of treatment. Topics of Discussion Topics of Discussion: 1. COPD, expected trajectory of disease 2. prognostication 3. patient values/GOC 4. comfort directed care/hospice Other Content of Meetin. Opportunity given for participants to speak and ask questions. 2. Participants were assured of attention to patient comfort. 3. Reassurance provided. 4. Support was provided for informed, good-joanne decisions. 5. Emotions expressed by family were acknowledged and addressed. 6. Follow-up Outpatient: n/a 7. Plan of Care: DNR/DNI We discussed prognosis based on the following prognostic scores (calculation based on pt's current condition): Palliative Prognostic Index (PPI) Score: 7 (PPI > 6 = approx survival of three weeks. Sensitivity 80% / Specificity 85%.) Jose F CY, Jadon YS, Reji HM, Zandra JS, Frankie TL, Valerie CY, Michel CC, Edouard YC, Garth JM, Melvina JH, Luc WC.Combination of initial palliative prognostic index and score change provides a better prognostic value for terminally ill cancer patients: a six- year observational cohort study https://www.ncbi.nlm.nih.gov/pubmed/94796300 . J Pain Symptom Manage. 2014;48(5):804-14. Palliative Prognostic Score (PaP - predicts 30 day survival probability in cancer and non cancer diagnoses): 11 = 30-day survival probability is 30-70% Claire Reyes.Independent validation of Palliative Prognostic Score in terminally ill patients referred to a hospital-based palliative medicine consultation service https://www.ncbi.nlm.nih.gov/pubmed/12898528 . J Pain Symp Manage. 2001; 22(5):713203. Palliative Performance Scale (PPS) of 40 correlating to median survival of 8 days for hospitalized elderly patients. Te Geetha MUSA, Brian S, Munir Rosales. Palliative care and rapid emergency screening tool and the Palliative Performance Scale to predict survival of older adults admitted to the hospital from the emergency department. [place] Journal of Hospice and Palliative Mediciine 2020; 38(7):800-6. We discussed the nature of COPD as a progressively debilitating and terminal disease. Discussed that pt has had increasing oxygen demand, currently 50L HFNC, and he continues to have visible respiratory distress with minimal exertion. Patient shared that he "does not feel like he is suffering". Helped pt understand that this level of oxygen demand precludes him being discharged from hospital and shared concern that if he continues on current trajectory, he will not survive this hospitalization. Discussed that COPD is not curable and given pt's wishes for DNI we discussed benefits of hospice care. Discussed hospice benefit: an interdisciplinary program offered by nurses, nurses aides, social workers, chaplains and a medical technicians for patients with a terminal condition and a life expectancy of less than 6 months. This is covered by Medicare at 100%/no out of pocket expense to patient and all meds/supplies needed by patient for the reason they are on hospice are paid for/covered by hospice. The goal is assure quality of life of the patient by providing symptoms management, psychosocial and spiritual support. We discussed the goals of hospice as a patient service and the goals of care; we discussed EOL trajectories and transitions kim the emotional impact of realizing mortality as a concrete reality from prior abstract considerations. Pt was reassured that no matter where they are along this trajectory, they are not alone - their medical team will remain by their side through their journey. Discussed the pros/cons of accepting help when especially weakened and distressed by pain-which would also help provide relief/decrease caregiver burden/strain. Given pt's persistent high oxygen demand precluding discharge from hospital, we DID NOT discuss hospice at home nor SNF. At this point pt is not medically stable to leave the hospital due to high oxygen demand. I shared with pt and family concern that he IS actively dying and worry for pt suffering. He again shared that his work of breathing is not causing him suffering. He shared desire to "live as long as possible". He does not wish to transition to comfort directed care at this point. We discussed that he is reaching the point of maximal respiratory support short of mechanical ventilation. He nodded and reinforced his wishes for DNR/DNI, but short of intubation he continues to wish for all other supportive measures. We discussed that we cannot cure or reverse his respiratory failure which at some point will likely cause his . Helped pt understand that as his energy reserves fade and oxygen demand continues to increase, his body will reach the point where it can no longer compensate for lung failure and he will likely become progressively more lethargic with cognitive decline. We discussed could be within hours to days and encouraged family/friend visitation while he remains lucid. Pt shared that he would not wish to pursue more aggressive care like vasopressor support or ICU admit, but as he "feels ok" at this time, he wishes to continue current level of care. Pt's daughter afterwards spoke with me privately, asking what dying might look like for pt and how she could know when it might be time for hospice. I shared with her that comfort directed care is appropriate at this time, however pt does still wish to prolong life as much as able. I shared concern that pt may within hours to days and briefly discussed changes pt may move through in the dying process including but not limited to sleeping more, disorientation when awake, restlessness, diminished senses/inability to respond to stimulus although ability to be aware of them remains intact longer, and changes in body temp eratures, skin changes/mottling/cyanosis, respiratory pattern changes, and oral secretions. Family verbalized understanding. The goal of hospice is to assure a peaceful . Time Involved in Meeting: I spent 60 minutes overall addressing this case: 10 in medical data review/discussion with referring provider(s) and/or preparation for the visit 40 in direct interaction with the patient and family 40 Advance Care Planning/Goals of Care discussions as detailed above in note (must be >16min) 5 in subsequent review and synthesis of assessment and plan 5 in communicating with other providers regarding the patient's case: Dr Cardoso, BSRN, CM
[2025-03-17] MEDS ORDERED: MoRPHine SULFATE 10 MG/0.5 ML UDP PO PRN (12:27)
[2025-03-17] MEDS: PRESERVISION AREDS PO SCH (15:44)
--- NOTE | 2025-03-17 19:49 | Hospitalist Progress Note ---
Date of Service March 17, 2025 Assessment & Plan (1) Acute and chronic respiratory failure with hypoxia: Plan: Patient was brought to the hospital by EMS after he was found with a saturation of 70% on his baseline 6L of oxygen Chest x ray showed evidence of chronic hyperinflation of lungs Now on 15 L of oxygen through oxy mask Patient still with respiratory distress Gave 2mg Morphine for air hunger Will consult palliative for goals of care PERSISTENT acute/chronic hypoxic respiratory failure starting on 15 liters/minute oxymask on 03/16/2025, 7:23am, now on 50 liters/minute high flow oxygen (since 03/16/2025, 1:40pom). (2) COPD (chronic obstructive pulmonary disease): Plan: NOT acute exacerbation on 03/16/2025 or on 03/17/2025. Added Incruse here in the hospital Patience Dillon (3) HTN (hypertension): Plan: Modestly controlled with diltiazem CD 180mg PO qam, lasix 40mg PO qam. (4) Atrial fibrillation with RVR: Plan: Rate-control with diltiazem CD 180mg PO qam. Rhythm-control with digoxin 0.125mg PO daily. Continue long-term active anticoagulation with coumadin 5mg PO qhs as patient strives to maintain therapeutic INR range of 2.0 to 3.0. cf., INR 2.2 (03/16/2025, 4:18pm). Plan Disposition: continue to monitor in the hospital, patient having worsening respiratory distress and increasing oxygen requirements DNR/DNI. Not yet [employer] as patient remains without any insight as to how close patient is at this moment to dying from [id number]-[id number] hypoxic respiratory failure, and patient refuses to have his code status revised from DNR/DNI to DNR/DNI/comfort measures only with morphine infusion only/inpatient hospice. However, patient's son, Mr. Hitesh Galvan ( ) and patient's , Ms. Jesusita Galvan ( ), both saw with their own eyes and heard with their own ears, the patient's struggles and [id number] on 50 liters/minute O2 via high flow oxygen via face mask on 03/17/2025, 2:10pm, and both patient's son, Mr. Hitesh Galvan ( ) and patient's , Ms. Jesusita Galvan ( ), concur that patient is dying actively on 03/17/2025, 2:10pm, but will continue to maintain patient on 50 liters/minute O2 via high flow oxygen via face mask on 03/17/2025, 2:10pm, until such time that patient becomes lethargic, obtunded, or confused, at which time, admission to inpatient hospice (e.g., [facility]) will be made. Admission and Anticipated Discharge Date Admission Date: March 09, 2025 Subjective "I'm short of breath. Just taking this mask off and eating a few bites of food makes me short of breath. Putting on the nasal prongs helps me breathe better when I eat. When can I go home? I would like to have hospice and be comfortable." Review of Systems Constitutional: Positive for shortness of breath at rest. Positive for shortness of breath while eating food. Positive for shortness of breath moving in bed. Negative for antecedent/coincident fevers, chills, diaphoresis, cough, wheeze, sore throat, hemoptysis, chest pains, palpitations, pleurisy, nausea, vomiting, diarrhea, abdominal pain, pelvic pain, hematemesis, hematochezia, melena, hematuria, dysuria, frequency, urgency, headaches, dizziness, lightheadedness, visual changes, hearing changes, falls, syncope, trauma, travel history, sick contacts, or food/drug ingestions novel or new. All other review of systems are reported as negative by the patient on 03/17/2025. Physical Exam Constitutional: General appearance: Run-down, worn-out, and listless. 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 Comfortable, coherent, cooperative. Wide awake and alert. Not confused, lethargic, or obtunded. Speaks in complete, fluent, and articulate sentences without pause, interruption, cough, or wheeze. HEENT: Normocephalic; atraumatic. EOMI. PERRL No rhinorrhea. No pharyngeal discharge. Neck: Supple, no stridor, bruit, goiter, JVD, or HJR. Lymph: No lymphadenopathy. Chest: Symmetric rise and fall with respirations. Non-tender to palpation. Lungs: Clear to auscultation and percussion. No audible wheeze, pectoriloquy, increase in tactile fremitus, or flatness/dullness to percussion at the bases. Heart: RRR, S1S2, no S3 or S4. Grade II/ early systolic murmur @ LLSB without radiation to the carotids, axilla, or back, and which remains invariant in regards to the respiratory cycle. Abd: Soft, non-tender, non-distended. No rebound, guarding, Varma's sign, or organomegaly. Bowel sounds auscultated in all 4 quadrants. Ext: No clubbing, cyanosis, or edema. 2+ pedal pulses bilaterally. Skin: No decubitus ulcer, exanthem, or enanthem. Skin dry with skin tenting, but no delay in capillary refill time > 2 seconds. Neuro: Alert and oriented in regards to person, place, time, or situation. 5/5 motor strength in all 4 extremities, both proximally and distally. Urology: No alegre catheter. No urethral discharge. Psych: No suicidal ideation. No homicidal ideation. Results & Data Results & Data Vital Signs (Past 12 Hours) Vital Signs Temp Pulse Pulse Resp BP Pulse Ox O2 Del Method 03/17/25 16:46 36.5 C 95 H 25 H 131/66 94 High Flow Nasal Cannula 03/17/25 16:05 67 03/17/25 15:43 75 03/17/25 13:26 81 30 H 92 High Flow Nasal Cannula 03/17/25 12:03 36.5 C 86 28 H 111/62 94 High Flow Nasal Cannula 03/17/25 09:13 High Flow Nasal Cannula 03/17/25 08:12 36.4 C L 89 29 H 126/73 94 High Flow Nasal Cannula 03/17/25 07:50 88 130/72 94 High Flow Nasal Cannula O2 Flow Rate FiO2 03/17/25 16:46 50 03/17/25 16:05 03/17/25 15:43 03/17/25 13:26 50 75 03/17/25 12:03 50 03/17/25 09:13 50 80 03/17/25 08:12 50 03/17/25 07:50 50 80 Laboratory Results No labs as patient awaits anticipated D/C to hospice in the next 1-2 days. PG Care Time/CCT Total # of Minutes Spent Total Time Spent with Patient: Total time spent is greater than 50% in coordination of care (as documented) at patient's floor/unit and/or counseling patient: Coding Level of Care Code 13531 SUB INP/OBS CARE 3/50MIN Diagnoses Acute and chronic respiratory failure with hypoxia J96.21 COPD (chronic obstructive pulmonary disease) J44.9 HTN (hypertension) I10 Atrial fibrillation with RVR I48.91
[2025-03-18] MEDS: CHLORASEPTIC (PHENOL) 1.4% SOLN 180 ML BTL MT PRN (02:16)
[2025-03-18 08:57] LABS: INR 2.4 (0.9-1.1); Prothrombin Time 24.1 Seconds (9.0-12.0)
--- NOTE | 2025-03-18 12:42 | Hospitalist Progress Note ---
Date of Service March 18, 2025 Assessment & Plan (1) Acute and chronic respiratory failure with hypoxia: Plan: Patient was brought to the hospital by EMS after he was found with a saturation of 70% on his baseline 6L of oxygen Chest x ray showed evidence of chronic hyperinflation of lungs Now on 15 L of oxygen through oxy mask Patient still with respiratory distress Gave 2mg Morphine for air hunger Will consult palliative for goals of care PERSISTENT acute/chronic hypoxic respiratory failure starting on 15 liters/minute oxymask on 03/16/2025, 7:23am, now on 50 liters/minute high flow oxygen (since 03/16/2025, 1:40pom, through the current date 03/18/2025, 12:44pm). Of note, patient has no insight as to how tenuous and terminal his condition is, and refuses to consider inpatient hospice and/or comfort measures only utilizing morphine infusion on 03/16/2025 through 03/18/2025, but does accept (and has received) morphine 10mg PO q4 prn shortness of breath, anxiety, agitation, panic, pain 1 to 10, #6 doses thus far (03/16/2025, 4:00pm; 03/17/2025, 1:36pm, 6:25pm; 03/18/2025, 12:09am, 4:17am, 8:54pm). (2) COPD (chronic obstructive pulmonary disease): Plan: NOT acute exacerbation on 03/16/2025 or on 03/17/2025. Added Incruse here in the hospital Patience Dillon (3) HTN (hypertension): Plan: Well-controlled with BP 134/82 (03/18/2025, 11:29am) on home-scheduled diltiazem CD 180mg PO qam, lasix 40mg PO qam. (4) Atrial fibrillation with RVR: Plan: Rate-control with diltiazem CD 180mg PO qam. Rhythm-control with digoxin 0.125mg PO daily. Continue long-term active anticoagulation with coumadin 5mg PO qhs as patient strives to maintain therapeutic INR range of 2.0 to 3.0. cf., INR 2.2 (03/16/2025, 4:18pm). Plan Disposition: continue to monitor in the hospital, patient having worsening respiratory distress and increasing oxygen requirements DNR/DNI. Not yet [employer] WORK[employer] as patient remains without any insight as to how close patient is at this moment to dying from yajhy-[id number]-[id number] hypoxic respiratory failure, and patient refuses to have his code status revised from DNR/DNI to DNR/DNI/comfort measures only with morphine infusion only/inpatient hospice. However, patient's son, Mr. Hitesh Galvan ( ) and patient's , Ms. Jesusita Galvan ( ), both saw with their own eyes and heard with their own ears on 03/17/2025, all of the patient's struggles and chcwlki-cr-fcjicgw on 50 liters/minute O2 via high flow oxygen via face mask on 03/17/2025, 2:10pm, and both patient's son, Mr. Hitesh Galvan ( ) and patient's , Ms. Jesusita Galvan ( ), concur that patient is dying actively on 03/17/2025, 2:10pm, but will continue to maintain the patient on 50 liters/minute O2 via high flow oxygen via face mask on 03/17/2025, 2:10pm, until such time that the patient becomes lethargic, obtunded, or confused, at which time, admission to inpatient hospice (e.g., [facility]) will be made and comfort measures utilizing morphine infusion only will commence. Admission and Anticipated Discharge Date Admission Date: March 09, 2025 Subjective "I'm still short of breath. I couldn't eat my pancakes today because my throat is sore, maybe from all this oxygen I'm getting. 50 liters a minute, right? I could eat my eggs ok, though." Review of Systems Review of Systems: All systems reviewed are negative, apart from the ones contained in the history. Constitutional: Positive for shortness of breath at rest. Positive for shortness of breath while eating food. Positive for shortness of breath moving in bed. Negative for antecedent/coincident fevers, chills, diaphoresis, cough, wheeze, sore throat, hemoptysis, chest pains, palpitations, pleurisy, nausea, vomiting, diarrhea, abdominal pain, pelvic pain, hematemesis, hematochezia, melena, hematuria, dysuria, frequency, urgency, headaches, dizziness, lightheadedness, visual changes, hearing changes, falls, syncope, trauma, travel history, sick contacts, or food/drug ingestions novel or new. All other review of systems are reported as negative by the patient on 2024. Physical Exam Constitutional: General appearance: Run-down, worn-out, and listless. 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 Comfortable, coherent, cooperative. Wide awake and alert. Not confused, kirsten rgic, or obtunded. Speaks in complete, fluent, and articulate sentences without pause, interruption, cough, or wheeze. HEENT: Normocephalic; atraumatic. EOMI. PERRL No rhinorrhea. No pharyngea l discharge. Neck: Supple, no stridor, bruit, goiter, JVD, or HJR. Lymph: No lymphadenopathy. Chest: Symmetric rise and fall with respirations. Non-tender to palpation. Lungs: Clear to auscultation and percussion. No audible wheeze, pectoriloquy, increase in tactile fremitus, or flatness/dullness to percussion at the bases. Heart: RRR, S1S2, no S3 or S4. Grade II/ early systolic murmur @ LLSB without radiation to the carotids, axilla, or back, and which remains invariant in regards to the respiratory cycle. Abd: Soft, non-tender, non-distended. No rebound, guarding, Varma's sign, or organomegaly. Bowel sounds auscultated in all 4 quadrants. Ext: No clubbing, cyanosis, or edema. 2+ pedal pulses bilaterally. Skin: No decubitus ulcer, exanthem, or enanthem. Skin dry with skin tenting, but no delay in capillary refill time > 2 seconds. Neuro: Alert and oriented in regards to person, place, time, or situation. 5/5 motor strength in all 4 extremities, both proximally and distally. Urology: No alegre catheter. No urethral discharge. Psych: No suicidal ideation. No homicidal ideation. Results & Data Results & Data Vital Signs (Past 12 Hours) Vital Signs Temp Pulse Pulse Resp BP Pulse Ox O2 Del Method 03/18/25 11:29 36.8 C 76 22 134/82 92 High Flow Nasal Cannula 03/18/25 09:00 71 03/18/25 09:00 High Flow Nasal Cannula 03/18/25 07:29 36.6 C 93 H 22 121/71 90 High Flow Nasal Cannula 03/18/25 07:12 83 22 95 High Flow Nasal Cannula 03/18/25 04:46 69 03/18/25 03:32 76 19 94 High Flow Nasal Cannula 03/18/25 03:08 36.6 C 75 20 125/73 95 High Flow Nasal Cannula O2 Flow Rate FiO2 03/18/25 11:29 12 03/18/25 09:00 03/18/25 09:00 50 75 03/18/25 07:29 12 03/18/25 07:12 50 85 03/18/25 04:46 03/18/25 03:32 50 85 03/18/25 03:08 Laboratory Results Abnormal lab results 03/18/25 Range/Units 06:33 PT 24.1 H (9.0-12.0) Seconds INR 2.4 H (0.9-1.1) PG Care Time/CCT Total # of Minutes Spent Total Time Spent with Patient: Total time spent is greater than 50% in coordination of care (as documented) at patient's floor/unit and/or counseling patient: Coding Level of Care Code 35544 SUB INP/OBS CARE 3/50MIN Diagnoses Acute and chronic respiratory failure with hypoxia J96.21 COPD (chronic obstructive pulmonary disease) J44.9 HTN (hypertension) I10 Atrial fibrillation with RVR I48.91
[2025-03-18] MEDS: LORazepam 0.5 MG TAB PO PRN (20:17)
[2025-03-19 08:56] VITALS: BP 132/70; PULSE 92; TEMP 97.7
[2025-03-19] MEDS ORDERED: STAT IV Infusion **Titration per Protocol STA (09:30)
[2025-03-19 10:26] VITALS: RESP 24; O2SAT 89
[2025-03-19] MEDS: MoRPHine SULF 100 MG/100 ML BAG IV SCH (11:02)
--- NOTE | 2025-03-19 18:12 | Discharge Summary ---
Discharge Summary Date of Service March 19, 2025 Principal Dx & Hospital Course #1 = Principal Diagnosis (1) Cardiopulmonary arrest: (2) Acute hypoxic respiratory failure: (3) Chronic hypoxic respiratory failure: (4) End stage chronic obstructive pulmonary disease: (5) Tobacco abuse: Plan 84 years old male with PMH of DNR/DNI @ home, HTN, paroxysmal atrial fibrillation on diltiazem, digoxin, and warfarin at home, former tobacco abuse with subsequent development of COPD, not on home oxygen or home steroids, who was admitted to the inpatient hospitalist service @ [facility] on 03/09/2025 with the following diagnosis: 1. Eddwz-je-evhnzmp hypoxic respiratory failure, due to end-stage COPD, due to former tobacco abuse. Patient's condition inexorably declined despite patient advancing from supplemental oxygen delivered via nasal cannula, then oxymask, then BIPAP, then high flow oxygen at 50 liters/minute continuously, all to no avail. Patient's code status of DNR/DNI @ home remained unchanged until 03/19/2025, as patient remained without any insight as to how close patient was to dying from wnmig-mq-pabhrjk hypoxic respiratory failure, and patient refused to have his code status revised from DNR/DNI to DNR/DNI/comfort measures only with morphine infusion only/inpatient hospice. However, patient's son, Mr. Hitesh Galvan ( ) and patient's , Ms. Jesusita Galvan ( ), both saw with their own eyes and heard with their own ears on 03/17/2025, all of the patient's struggles and lzdbsjm-hk-[id number] on 50 liters/minute O2 via high flow oxygen via face mask on 03/17/2025, 2:10pm, and both patient's son, Mr. Hitesh Galvan ( ) and patient's , Ms. Jesusita Galvan ( ), concurred that patient was dying actively on 03/17/2025, 2:10pm, and both patient's son, Mr. Hitesh Galvan ( ) and patient's , Ms. Jesusita Galvan ( ), agreed to continue to maintain the patient on 50 liters/minute O2 via high flow oxygen via face mask on 03/17/2025, 2:10pm, until such time that the patient became lethargic, obtunded, or confused, at which time, comfort measures utilizing morphine infusion only would commence. Subsequently, morphine infusion was started on 03/19/2025, 11:02am at 1mg/hr, increasing to 2mg/hr on 03/19/2025, 4:09pm, followed by patient's expiration on 03/19/2025, 5:24pm. Condolences to patient's son, Mr. Hitesh Galvan ( ), were delivered in person by me at the patient's bedside, as well as to other members of the patient's family. I also called patient's , Ms. Jesusita Galvan ( ), as she was not physically able to be at the patient's bedside at the time of patient's expiration on 03/19/2025, 5:24pm, due to her own physical ailments, and so I gave her my condolences over the phone, instead of in person. Admission HPI Per Admitting Provider 84-year-old male with a history of COPD 6 months ago, heart failure with preserved ejection fraction, atrial fibrillation, who presents to the hospital today after he was found by EMS with a saturation of 70% 6 L oxygen. He was then brought to the hospital for further evaluation patient was discharged from this hospital 3 weeks ago after he was managed for COPD exacerbation Today in the emergency department, he was tachycardic and tachypneic. He was subsequently put on BiPAP I came to evaluate him, he stated he was feeling a lot better compared to when he came in Discharge Exam Constitutional Patient seen, examined at bedside on 03/19/2025, 5:24pm. Patient was unresponsive to verbal and noxious stimuli. Patient had no cough or gag reflexes. Patient had no spontaneous chest wall rise or fall. Patient had no central pulse or peripheral pulses. Patient's pupils were fixed in the midline with a pupillary diameter of 3mm bilaterally. Patient was declared on 03/19/2025, 5:24pm from: 1. Acute cardiopulmonary arrest, due to 2. Acute hypoxic respiratory failure, due to 3. Chronic hypoxic respiratory failure, due to 4. End-stage chronic obstructive pulmonary disease, due to 5. Tobacco use. Discharge Plan Discharge Items Patient Disposition: Other Date/Time: 03/19/25 17:24 Hospital Stay Data Consultations 03/09/25 11:07 ED Decision to Admit Stat 03/15/25 09:02 Consult Palliative Care Routine Total Time Total Time Spent Total Time Spent (In Minutes): 35 minutes. Of this time period, 19 minutes were spent in coordinating patient's discharge. Coding Level of Care Code 57763 INP/OBS DISCH >30 MIN Diagnoses Cardiopulmonary arrest I46.9 Acute hypoxic respiratory failure J96.01 Chronic hypoxic respiratory failure J96.11 End stage chronic obstructive pulmonary disease J44.9 Tobacco abuse Z72.0
--- NOTE | 2025-03-19 18:12 | Death Pronouncement Note ---
Date of Service March 19, 2025 Pronouncement Note Admission Date March 09, 2025 Date and Time of Date of : 03/19/25 Time of : 17:24 Preliminary Cause of (1) Cardiopulmonary arrest: (2) Acute hypoxic respiratory failure: (3) Chronic hypoxic respiratory failure: (4) End stage chronic obstructive pulmonary disease: (5) Tobacco abuse: Summary Patient seen, examined at bedside on 03/19/2025, 5:24pm. Patient was unresponsive to verbal and noxious stimuli. Patient had no cough or gag reflexes. Patient had no spontaneous chest wall rise or fall. Patient had no central pulse or peripheral pulses. Patient's pupils were fixed in the midline with a pupillary diameter of 3mm bilaterally. Patient was declared on 03/19/2025, 5:24pm from: 1. Acute cardiopulmonary arrest, due to 2. Acute hypoxic respiratory failure, due to 3. Chronic hypoxic respiratory failure, due to 4. End-stage chronic obstructive pulmonary disease, due to 5. Tobacco use. Additional Data Attending physician: Pk Cardoso MD, PhD
== END 2025-03-19 18:24 | disposition expired | DRG 189 ==
LOC: SUATTDRO → ED 09:32 → 2E 11:41 → SUATTDRO 11:41 → 2E 12:39